=== PATIENT | male | born 1975 | race Caucasian/White ===

== ENCOUNTER → 2017-01-27 | Outpatient (CLI) | payer MEDICAID ==
[~2017-01-27] MED LIST: ALBUTEROL SULF 90 MCG INH; AMLO10TA4 PO; DOCU100C37 PO; GABA-488 PO; GABA300S2 PO; GABA600T2 PO; GEMF600T3 PO; HYDR-3816 PO; INSU100V16 SQ; INSU100V3 SC; INSU100V5 SQ; KENALOG 0.1% TOP; METF500T8 PO; OMEP20TA33 PO; ONDN4T PO; POLY17PO23 PO; POTA-51 PO; SERT20OR PO; SERT50TA9 PO; VALS1TAB5 PO
== END ==
LOC: WOUNDCARE 09:16
PROVIDERS: ATTEND Surgery
DX: E11.622 Type 2 diabetes mellitus with other skin ulcer (principal); L97.222 Non-pressure chronic ulcer of left calf with fat layer exposed; I87.332 Chronic venous hypertension (idiopathic) with ulcer and inflammation of left lower extremity; I70.242 Atherosclerosis of native arteries of left leg with ulceration of calf
CPT/HCPCS: 11042

== ENCOUNTER → 2017-01-29 | Outpatient (CLI) | payer MEDICAID ==
[2017-02-01 08:02] LABS: HOMOCYSTEINE 10.3 umol/L (<=10.3)
[2017-02-01 16:57] LABS: LUPUS ANTICOAGULANT PTT 27.5 Seconds (24.4-41.7)
[2017-02-02 07:13] LABS: INR REF RML 0.9 (0.7-1.3); PT REF RML 12.7 SEC (10.5-15.7); PTT LUPUS 26.8 SEC (20.6-39.2)
[2017-02-02 07:23] LABS: DIL RUSSELL VIPER VENOM SCREEN 0.94 ratio (0.00-1.20)
== END ==
LOC: LAB 08:56
PROVIDERS: ATTEND Surgery
DX: L97.222 Non-pressure chronic ulcer of left calf with fat layer exposed (principal); I87.332 Chronic venous hypertension (idiopathic) with ulcer and inflammation of left lower extremity; E11.622 Type 2 diabetes mellitus with other skin ulcer; I70.242 Atherosclerosis of native arteries of left leg with ulceration of calf
CPT/HCPCS: 36415; 81240; 83090; 85240; 85307; 85610; 85705; 85730; 86146; 86147

== ENCOUNTER → 2017-02-03 | Outpatient (CLI) | payer MEDICAID | LOC: WOUNDCARE 08:01 | PROVIDERS: ATTEND Surgery | DX: E11.622 Type 2 diabetes mellitus with other skin ulcer (principal); L97.222 Non-pressure chronic ulcer of left calf with fat layer exposed; I87.332 Chronic venous hypertension (idiopathic) with ulcer and inflammation of left lower extremity; I70.242 Atherosclerosis of native arteries of left leg with ulceration of calf | CPT/HCPCS: 11042 ==

== ENCOUNTER → 2017-02-03 | Outpatient (CLI) | payer MEDICAID ==
[2017-02-05 11:55] LABS: FACTOR 5 (LEIDEN) MUTATION Negative (Negative)
[2017-02-05 15:52] LABS: FACTOR 5 LEIDEN INTERP See Footnote
== END ==
LOC: LAB 09:14
PROVIDERS: ATTEND Surgery
DX: D68.59 Other primary thrombophilia (principal)
CPT/HCPCS: 36415; 81241

== ENCOUNTER → 2017-02-10 | Outpatient (CLI) | payer MEDICAID | LOC: WOUNDCARE 08:29 | PROVIDERS: ATTEND Surgery | DX: E11.622 Type 2 diabetes mellitus with other skin ulcer (principal); L97.222 Non-pressure chronic ulcer of left calf with fat layer exposed; I87.332 Chronic venous hypertension (idiopathic) with ulcer and inflammation of left lower extremity | CPT/HCPCS: 11042; 87070; 87075; 87077; 87186; 87205 ==

== ENCOUNTER → 2017-02-17 | Outpatient (CLI) | payer MEDICAID | LOC: WOUNDCARE 08:04 | PROVIDERS: ATTEND Surgery | DX: E11.622 Type 2 diabetes mellitus with other skin ulcer (principal); L97.222 Non-pressure chronic ulcer of left calf with fat layer exposed; I87.332 Chronic venous hypertension (idiopathic) with ulcer and inflammation of left lower extremity | CPT/HCPCS: 29581 ==

== ENCOUNTER → 2017-02-24 | Outpatient (CLI) | payer MEDICAID | LOC: WOUNDCARE 08:09 | PROVIDERS: ATTEND Surgery | DX: E11.622 Type 2 diabetes mellitus with other skin ulcer (principal); L97.222 Non-pressure chronic ulcer of left calf with fat layer exposed; I87.332 Chronic venous hypertension (idiopathic) with ulcer and inflammation of left lower extremity | CPT/HCPCS: 99212 ==

== ENCOUNTER → 2017-06-14 | Outpatient (CLI) | payer MEDICAID ==
[~2017-06-14] MED LIST changes: +HYDR-34 PO; -HYDR-3816 PO
[2017-06-14 11:01] LABS: BASOPHILS % (AUTO) 0 % (0-10); EOSINOPHILS # (AUTO) 0.2 10^3/uL (0.0-0.3); EOSINOPHILS % (AUTO) 2 % (0-10); HEMATOCRIT 46 % (40-54); HEMOGLOBIN 16.1 G/DL (13.3-17.7); LYMPHOCYTES # (AUTO) 2.2 X 10^3 (1.0-4.0); LYMPHOCYTES % (AUTO) 28 % (12-44); MEAN CORPUSCULAR HEMOGLOBIN 29 PG (25-34); MEAN CORPUSCULAR HGB CONC 35 G/DL (32-36); MEAN CORPUSCULAR VOLUME 82 FL (80-99); MEAN PLATELET VOLUME 11.2 FL (7.4-10.4); MONOCYTES # (AUTO) 0.7 X 10^3 (0.0-1.0); MONOCYTES % (AUTO) 9 % (0-12); NEUTROPHILS # (AUTO) 4.7 X 10^3 (1.8-7.8); NEUTROPHILS % (AUTO) 61 % (42-75); PLATELET COUNT 208 10^3/uL (130-400); RED BLOOD COUNT 5.55 10^6/uL (4.35-5.85); RED CELL DISTRIBUTION WIDTH 13.1 % (10.0-14.5); WHITE BLOOD COUNT 7.8 10^3/uL (4.3-11.0)
[2017-06-14 11:19] LABS: ALANINE AMINOTRANSFERASE 32 U/L (0-55); ALKALINE PHOSPHATASE 48 U/L (40-136); BILIRUBIN,TOTAL 0.5 MG/DL (0.1-1.0); BUN/CREATININE RATIO 16; CALCIUM 9.3 MG/DL (8.5-10.1); CARBON DIOXIDE 23 MMOL/L (21-32); CHLORIDE 108 MMOL/L (98-107); CREATININE SERUM 0.82 MG/DL (0.60-1.30); GFR ESTIMATED > 60; GLUCOSE 256 MG/DL (70-105); POTASSIUM 4.3 MMOL/L (3.6-5.0); SODIUM 136 MMOL/L (135-145)
== END ==
LOC: LAB 10:47
PROVIDERS: ATTEND Surgery
DX: E11.622 Type 2 diabetes mellitus with other skin ulcer (principal); L97.222 Non-pressure chronic ulcer of left calf with fat layer exposed
CPT/HCPCS: 36415; 80053; 85025

== ENCOUNTER → 2017-06-14 | Outpatient (CLI) | payer MEDICAID | LOC: WOUNDCARE 08:55 | PROVIDERS: ATTEND Surgery | DX: L97.222 Non-pressure chronic ulcer of left calf with fat layer exposed (principal); L97.221 Non-pressure chronic ulcer of left calf limited to breakdown of skin; I87.332 Chronic venous hypertension (idiopathic) with ulcer and inflammation of left lower extremity; E11.622 Type 2 diabetes mellitus with other skin ulcer; E11.65 Type 2 diabetes mellitus with hyperglycemia; Z89.511 Acquired absence of right leg below knee | CPT/HCPCS: 11042; 87070; 87075; 87077; 87186; 87205; 97597 ==

== ENCOUNTER → 2017-06-21 | Outpatient (CLI) | payer MEDICAID | LOC: WOUNDCARE 08:45 | PROVIDERS: ATTEND Surgery | DX: E11.622 Type 2 diabetes mellitus with other skin ulcer (principal); L97.222 Non-pressure chronic ulcer of left calf with fat layer exposed; L97.221 Non-pressure chronic ulcer of left calf limited to breakdown of skin; I87.332 Chronic venous hypertension (idiopathic) with ulcer and inflammation of left lower extremity; E11.65 Type 2 diabetes mellitus with hyperglycemia; Z89.511 Acquired absence of right leg below knee | CPT/HCPCS: 11042 ==

== ENCOUNTER → 2017-06-28 | Outpatient (CLI) | payer MEDICAID | LOC: WOUNDCARE 08:35 | PROVIDERS: ATTEND Surgery | DX: E11.622 Type 2 diabetes mellitus with other skin ulcer (principal); I87.332 Chronic venous hypertension (idiopathic) with ulcer and inflammation of left lower extremity; L97.221 Non-pressure chronic ulcer of left calf limited to breakdown of skin; E11.65 Type 2 diabetes mellitus with hyperglycemia; Z89.511 Acquired absence of right leg below knee | CPT/HCPCS: 97597 ==

== ENCOUNTER → 2017-07-12 | Outpatient (CLI) | payer MEDICAID | LOC: WOUNDCARE 08:45 | PROVIDERS: ATTEND Surgery | DX: E11.622 Type 2 diabetes mellitus with other skin ulcer (principal); L97.221 Non-pressure chronic ulcer of left calf limited to breakdown of skin; I87.332 Chronic venous hypertension (idiopathic) with ulcer and inflammation of left lower extremity; Z89.511 Acquired absence of right leg below knee | CPT/HCPCS: 99212 ==

== ENCOUNTER 2018-10-27 09:30 | Outpatient (CLI) | payer MEDICAID ==
[~2018-10-27] VITALS: Ht 182.9 cm; Wt 136.1 kg
[~2018-10-27 09:30] MED LIST changes: -GABA600T2 PO; +GBPN600T PO; -GEMF600T3 PO; +GEMF600T8 PO; -POLY17PO23 PO; +POLY17PO31 PO
[2018-10-27] MEDS ORDERED: INSU100V SQ (10:13)
[2018-10-27] MEDS ORDERED: RT-ALBUINH IH (10:13)
[2018-10-27] MEDS ORDERED: HYDR-3816 PO (10:13)
[2018-10-27] MEDS ORDERED: ATOR20TA66 PO (10:13)
[2018-10-27] MEDS ORDERED: IBUP-1780 PO (10:13)
[2018-10-27] MEDS ORDERED: AMLO5TAB9 PO (10:13)
[2018-10-27] MEDS ORDERED: INSU200I4 SQ (10:13)
[2018-10-27] MEDS ORDERED: OMEP40CA36 PO (10:13)
[2018-10-27] MEDS ORDERED: MONT10TA24 PO (10:13)
== END 2018-10-27 10:14 | disposition home or self-care (01) ==
LOC: PREOP 09:30
PROVIDERS: ATTEND Surgery
DX: Z01.818 Encounter for other preprocedural examination (principal)

== ENCOUNTER 2018-10-31 07:48 | Day surgery (SDC) | payer MEDICAID, MEDICARE ==
[~2018-10-31] VITALS: Ht 182.9 cm; Wt 136.1 kg
[~2018-10-31 07:48] MED LIST changes: +AMLO5TAB9 PO; +ATOR20TA66 PO; +HYDR-3816 PO; +IBUP-1780 PO; +INSU100V SQ; +INSU200I4 SQ; +LACTATED RINGERS 1,000 ML IV ONE; +MONT10TA24 PO; +OMEP40CA36 PO; +RT-ALBUINH IH
[2018-10-31] MEDS ORDERED: LACTATED RINGERS 1,000 ML IV STA (07:58)
[2018-10-31] MEDS ORDERED: proPOfol 200 MG/20 ML (DIPRIVAN) VIAL IV ONE (08:11)
[2018-10-31] MEDS ORDERED: fentaNYL INJECTION 100 MCG/2 ML AMP ONE (08:11)
[2018-10-31] MEDS ORDERED: LIDOCAINE PF 2% 5 ML (XYLOCAINE) VIAL ONE (08:12)
[2018-10-31] MEDS ORDERED: MIDAZOLAM 2 MG/2 ML (VERSED) VIAL ONE (08:12)
[2018-10-31 08:18] VITALS: BP 155/88
--- NOTE | 2018-10-31 08:28 | Progress Note-Pre Operative ---
Pre-Operative Progress Note H&P Reviewed The H&P was reviewed, patient examined and no changes noted. Time Seen by Provider: 08:17 Date H&P Reviewed: Oct 31, 2018 Time H&P Reviewed: 08:18 Pre-Operative Diagnosis: Dysphagia AVNI VILLANUEVA DO Oct 31, 2018 08:28
[2018-10-31] MEDS ORDERED: HURRICAINE EXT TUBE (BENZOCAINE) ONE (09:13)
[2018-10-31 09:40] VITALS: BP 130/67
--- NOTE | 2018-10-31 09:44 | Progress Note-Post Operative ---
Post-Operative Progess Note Surgeon (s)/Industrial Diamond Polisher (s) Surgeon AVNI VILLANUEVA DO Industrial Diamond Polisher: none Pre-Operative Diagnosis Dysphagia Post-Operative Diagnosis Gastritis Esophagitis Procedure & Operative Findings Date of Procedure 10/31/18 Procedure Performed/Findings EGD with bx Anesthesia Type IV sedation by FRYER OPERATOR Estimated Blood Loss Estimated blood loss (mL): scant Specimens/Packing Specimens Removed Antral bx Body of stomach bx GE jxn bx AVNI VILLANUEVA DO Oct 31, 2018 09:44
[2018-10-31 09:45] VITALS: BP 124/61
--- NOTE | 2018-10-31 09:46 | Endoscopy Discharge Instruct ---
Endo Procedure/Findings Findings 1.: Gastritis 2.: Other Findings (Esophagitis) Discharge Instructions - Activity: You might feel a little sleepy until tomorrow. This is due to the medicine you received to relax you. Until tomorrow, you should: NOT drive a car, operate machinery or power tools. NOT drink any alcoholic beverages. NOT make any important decisions or sign importortant papers. Do not return to work until tomorrow, unless otherwise instructed. Resume previous activities tomorrow. Diet: Start by taking liquids. If you tolerate liquids, advance to solid food. make an appointment for 2 weeks Instructions: 1.: EGD in 6-8 weeks Notify Physician - If you experience excessive bleeding, unusual abdominal pain, fever, or chest pain, contact your doctor immediately. Follow-Up: - I have received and understand the above instructions and will call my doctor if I have any further questions. Patient Signature Date Nurse Signature Other (Relationship) AVNI VILLANUEVA DO Oct 31, 2018 09:46
[2018-10-31 09:50] VITALS: BP 149/77
[2018-10-31 10:20] VITALS: BP 152/79
[2018-10-31 10:23] VITALS: BP 152/79
[2018-10-31] MEDS ORDERED: HURRICAINE EXT TUBE (BENZOCAINE) XX ONE (10:30)
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
--- OUTSIDE RECORDS SUMMARY | 2018-10-31 17:28 | XMS REPORT ---
Author Author Migration, Doctor Organization [facility] Address Unknown Phone Unavailable Care Team Providers Care Director [employer] Name Role Phone Migration, Doctor Unavailable Unavailable PROBLEMS Type Condition ICD9-CM Code PLW26-FQ Code Onset Dates Condition Status SNOMED Code Problem Diabetes type 2, uncontrolled E11.65 Active 348298703 Problem Acquired absence of right leg below knee Z89.511 Active 143295058 Problem DM 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 Active 76934992 Problem Skin ulcer of left lower leg, limited to breakdown of skin L97.921 Active 41306160 Problem Erectile dysfunction, unspecified erectile dysfunction type N52.9 Active 808788859 Problem Cellulitis of left lower extremity L03.116 Active 692668506 Problem Obstructive sleep apnea syndrome G47.33 Active 73394427 Problem Reflux esophagitis K21.0 Active 548876906 Problem Acute pain of left shoulder M25.512 Active 73409217 Problem Wheelchair bound Z99.3 Active 861319155 Problem Hammertoe of left foot M20.42 Active 605689086 Problem Venous insufficiency (chronic) (peripheral) I87.2 Active 56112737 Problem 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 Active 953991780 Problem 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 Active 445639107 Problem Varicose veins of left lower extremity with ulcer other part of lower leg I83.028 Active 38161051 Problem Other chronic pain G89.29 Active 80014151 Problem 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 Active 188094135 Problem Essential hypertension I10 Active 89292953 Problem Type 2 diabetes mellitus with diabetic polyneuropathy E11.42 Active 34112003 Problem Phantom pain R52 Active 480946445 Problem Mild intermittent asthma without complication J45.20 Active 369155911 Problem Anaphylactic reaction to bee sting, accidental or unintentional, initial encounter T63.441A Active 193589774 Problem Major depressive disorder in partial remission, unspecified whether recurrent F32.4 Active 70291079 Problem Body mass index (BMI) of 45.0-49.9 in adult Z68.42 Active 124469994 Problem Type 2 diabetes mellitus with other skin ulcer E11.622 Active 315907413 ALLERGIES Substance Reaction Event Type Date Status Victoza 3-jennifer 0.6 Mg/0.1 Ml (18 Mg/3 Ml) Pen Injec Unknown Non Drug Allergy Jul, Active ENCOUNTERS Encounter Location Date Diagnosis [facility] [id number] [place] [address] Oct, [facility] [id number] [place] [address] [id number] Oct, [facility] [address] [id number] Sep, Morbid obesity E66.01 ; Essential hypertension I10 and Other dysphagia R13.19 [facility] [address] [id number] Sep, [facility] [address] [id number] Sep, [facility] [id number] [place] [address] [id number] Sep, [facility] [address] [id number] Sep, [facility] [id number] [place] [address] [id number] Sep, Essential hypertension I10 [facility] [id number] [place] [address] [id number] Sep, [facility] [address] [id number] Sep, Morbid obesity E66.01 ; Diabetes type 2, uncontrolled E11.65 ; Pain in right shoulder M25.511 ; Other chronic pain G89.29 and Essential hypertension I10 [facility] [id number] [place] [address] [id number] Sep, Diabetes type 2, uncontrolled E11.65 ; Acquired absence of right leg below knee Z89.511 ; Skin ulcer of left lower leg, limited to breakdown of skin L97.921 ; Type 2 diabetes mellitus with diabetic polyneuropathy E11.42 ; 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 and Morbid obesity E66.01 [facility] [id number] [place] [address] [id number] August, Acquired absence of right leg below knee Z89.511 [facility] [id number] [place] [address] [id number] August, Morbid obesity E66.01 and Diabetes type 2, uncontrolled E11.65 [address] [place] [address] [id number] Jul, [id number] [place] [address] [id number] Jul, Acquired absence of right leg below knee Z89.[address] [place] [address] [id number] Jul, Encounter for Medicare annual wellness exam [...] in partial remission, unspecified whether recurrent F32.[address] [place] [address] [id number] Jul, [address] [place] [address] [id number] Jul, Type 2 diabetes mellitus with other skin ulcer E11.622 ; 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 ; Reflux esophagitis K21.0 ; Essential hypertension I10 ; Acute non-recurrent maxillary sinusitis J01.00 and Body mass index (BMI) of 45.0-49.9 in adult Z68.[address] [place] [address] [id number] Jun, DM 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 [facility] [id number] [place] [address] Jun, [id number] [place] [address] [id number] May, [address] [facility] [id number] [id number] May, DM 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 [id number] [place] [address] [id number] Apr, Finger laceration involving tendon, subsequent encounter S61.219D and BMI 40.0- 44.9, adult Z68.41 [id number] [place] [address] [id number] Apr, DM 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 [id number] [place] [address] [id number] Mar, [id number] [place] [address] [id number] Mar, DM 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 ; Essential hypertension I10 and Phantom pain R52 [id number] [place] [address] Feb, [id number] [place] [address] [id number] Feb, Diabetes type 2, uncontrolled E11.65 ; Skin ulcer of left lower leg, limited to breakdown of skin L97.921 and BMI 40.0-44.9, adult Z68.41 [facility] [address] [place] [address] Jan, [id number] [place] [address] [id number] Jan, Diabetes type 2, uncontrolled E11.65 and BMI 40.0-44.9, adult Z68.41 [facility] [id number] [place] [address] Dec, Onychomycosis B35.1 and DM 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 [address] [place] [address] [id number] Dec, [address] [id number] Dec, Diabetes type 2, uncontrolled E11.65 ; Essential hypertension I10 ; Reflux esophagitis K21.0 ; Major depressive disorder in partial remission, unspecified whether recurrent F32.4 ; Phantom pain R52 and BMI 40.0-44.9, adult Z68.41 [id number] [place] [address] [id number] Nov, Phantom pain R52 [id number] [place] [address] [id number] Nov, Diabetes type 2, uncontrolled E11.65 and BMI 40.0-44.9, adult Z68.41 [id number] [place] [address] [id number] Oct, Anaphylactic reaction to bee sting, accidental or unintentional, initial encounter T63.441A ; Pain in right shoulder M25.511 and Other chronic pain G89.29 [address] [place] [address] [id number] Oct, Diabetes type 2, uncontrolled E11.65 [id number] [place] [address] [id number] Oct, Diabetes type 2, uncontrolled E11.65 and Cellulitis of left lower extremity L03.116 [id number] [place] [address] [id number] Oct, Phantom pain R52 [facility] [address] [id number] [address] Sep, Onychomycosis B35.1 ; Impaired circulation of left leg I99.9 and DM 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 [address] [place] [address] [id number] Sep, BMI 40.0-44.9, adult Z68.41 ; Skin ulcer of left lower leg, limited to breakdown of skin L97.921 ; Acute pain of left shoulder M25.512 ; DM 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 ; Mild intermittent asthma without complication J45.20 and Phantom pain R52 [facility] [id number] [place] [address] [id number] Sep, Phantom pain R52 [facility] [id number] [place] [address] [id number] August, Phantom pain R52 [facility] [id number] [place] [address] [id number] August, Acquired absence of right leg below knee Z89.511 [facility] [id number] [place] [address] [id number] August, Acquired absence of right leg below knee Z89.511 [address] [id number] [place] [address] August, Diabetes type 2, uncontrolled E11.65 [place] [address] [address] August, [place] [address] [address] August, [address] [place] [address] [id number] August, BMI 40.0-44.9, adult Z68.41 ; 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 and Acquired absence of right leg below knee Z89.511 [facility] [address] [id number] [place] [address] August, [facility] [address] [facility] [id number] 919963495 Jul, Skin ulcer of left lower leg, limited to breakdown of skin L97.921 [facility] [address] [place] [address] [id number] Jul, [facility] [address] [id number] Jul, BMI 40.0-44.9, adult Z68.41 ; Skin ulcer of left lower leg, limited to breakdown of skin L97.921 and DM 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 [facility] [address] [address] Jul, [address] [place] [address] [id number] Jul, [address] [place] [address] [id number] Jul, [id number] [place] [address] [id number] Jun, Erectile dysfunction, unspecified erectile dysfunction type N52.9 [place] [id number] [place] [address] Jun, [id number] [place] [address] [id number] Jun, BMI 40.0-44.9, adult Z68.41 ; Diabetes type 2, uncontrolled E11.65 ; Phantom pain R52 ; Subluxation of right shoulder joint, sequela S43.001S and Erectile dysfunction, unspecified erectile dysfunction type N52.9 [facility] [address] [place] [address] Jun, DM 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 ; Onychomycosis B35.1 and Hammertoe of left foot M20.42 [place] [address] [place] [address] Jun, [address] [place] [address] [id number] Jun, DM 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 [id number] [id number] Jun, DM 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 [address] [place] [address] [id number] May, DM 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 ; Venous insufficiency (chronic) (peripheral) I87.2 ; 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 ; Essential hypertension I10 and Phantom pain R52 [facility] [id number][place] [id number] Apr, Diabetes type 2, uncontrolled E11.65 ; Acquired absence of right leg below knee Z89.511 ; Essential hypertension I10 ; Reflux esophagitis K21.0 and Phantom pain R52 [facility] [id number] [place] [address] [id number] Apr, BMI 40.0-44.9, adult Z68.41 and Wheelchair bound Z99.3 [facility] [id number] [place] [address] [id number] Mar, [facility] [id number] [place] [address] [id number] Mar, BMI 40.0-44.9, adult Z68.41 ; Diabetes type 2, uncontrolled E11.65 ; Mild intermittent asthma without complication J45.20 ; Phantom pain R52 ; Reflux esophagitis K21.0 and Essential hypertension I10 [facility] [id number] [place] [address] [id number] Feb, Phantom pain R52 [place] [id number] [place] [address] [id number] Feb, Phantom pain R52 and Acute pain of left shoulder M25.512 [address] [id number] [place] [address] [id number] Jan, Phantom pain R52 [address] [id number] [place] [address] [id number] Jan, DM 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 ; Cellulitis of left lower extremity L03.116 ; Obstructive sleep apnea syndrome G47.33 ; Thyroid disorder screen Z13.29 and Lipid screening Z13.220 [facility] [id number] [place] [address] [id number] Jan, [facility] [id number] [place] [address] [id number] Dec, DM 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 ; Phantom pain R52 and Mild intermittent asthma without complication J45.20 [facility] [id number] [place] [address] [id number] Dec, Wound of left lower extremity, subsequent encounter S81.802D [facility] [id number] [place] [address] [id number] Nov, [facility] [id number] [place] [address] Nov, [facility] [id number] [place] [address] [id number] Nov, DM 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 ; Mild intermittent asthma without complication J45.20 ; Essential hypertension I10 and Phantom pain R52 [facility] [id number] [place] [address] [id number] Oct, Phantom pain R52 [address] [id number] Sep, Phantom pain R52 ; DM 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 and Essential hypertension I10 [id number] [place] [address] [id number] August, DM 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 ; Phantom pain R52 and Essential hypertension I10 [facility] [id number] [place] [address] [id number] Jul, DM 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 and Phantom pain R52 [facility] [address] [place] [address] Jun, Onychomycosis B35.1 and DM 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 [address] [place] [address] [id number] Jun, DM 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 ; Phantom pain R52 ; Essential hypertension I10 and Diabetes with neurological manifestations, type II or unspecified type, not stated as uncontrolled 250.60 [facility] [address] [place] [address] [id number] Apr, DM 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 ; Phantom pain R52 ; Essential hypertension I10 and Mild intermittent asthma without complication J45.20 [facility] [id number] [place] [address] [id number] Apr, Need for follow up care after discharge from healthcare facility Z92.89 and Wound of right lower extremity, subsequent encounter S81.801D [facility] [id number], [place] [id number] Mar, Phantom pain R52 ; DM 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 and Essential hypertension I10 [facility] [id number] [place] [address] [id number] Feb, DM 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 ; Phantom pain R52 and Essential hypertension I10 [id number] [place] [address] [id number] Jan, Phantom pain R52 and DM 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 [id number] [place] [address] [id number] Dec, [address] [place] [address] [id number] Dec, DM 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 ; Phantom pain R52 ; Mild intermittent asthma without complication J45.20 and Essential hypertension I10 [facility] [id number] [address] Dec, Onychomycosis B35.1 ; Xerosis of skin L85.3 and DM 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 [id number] [place] [address] [id number] Nov, Acquired absence of right leg below knee Z89.511 [address] [place] [address] [id number] Nov, [id number] [place] [address] [id number] Nov, [facility] [address] [place] [address] [id number] Sep, [address] [place] [address] [id number] Sep, Diabetes type 2, uncontrolled E11.65 ; Leg wound, left, initial encounter S81.802A and Erectile disorder due to medical condition in male N52.[address] [place] [address] [id number] Sep, [id number] [place] [address] [id number] Jul, [facility] [id number], [place] [id number] Jul, [facility] [id number] [place] [address] [id number] Jul, [facility] [address] [place] [address] [id number] Jul, 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 ; Varicose vein of leg I83.93 ; Diabetes type 2, uncontrolled E11.65 and Chronic pain G89.29 [facility] [id number] [place] [address] [id number] Jul, [id number] [place] [address] [id number] Jul, Diabetes with neurological manifestations, type II or unspecified type, not stated as uncontrolled 250.60 [address] [place] [address] [id number] Jul, [place] [id number] [place] [address] [id number] Jul, [place] [id number] [place] [address] [id number] Jun, Diabetes type 2, uncontrolled E11.65 [place] [id number] [place] [address] [id number] Jun, Pain in right knee M25.561 ; Pain in left knee M25.562 ; Other chronic pain G89.29 and Primary osteoarthritis of both knees M17.[address] [place] [address] [id number] Apr, Diabetes type 2, uncontrolled E11.65 ; Puncture wound of foot, left, initial encounter S91.332A and Encounter for immunization Z23 [address] [id number] [place] [address] [id number] Apr, [facility] [address] [place] [address] [id number] Apr, [address] [place] [address] [id number] Feb, Acquired absence of right leg below knee Z89.511 [facility] [id number] [place] [address] [id number] Feb, Acquired absence of right leg below knee Z89.511 [facility] [id number] [place] [address] [id number] Feb, Diabetes type 2, uncontrolled E11.65 and Acquired absence of right leg below knee Z89.511 [facility] [id number] [place] [address] [id number] Jan, [facility] [address] [id number] Jan, [facility] [id number] [place] [address] Jan, [facility] [id number] [place] [address] [id number] Jan, [facility] [id number] [place] [address] [id number] Dec, [place] [id number] [place] [address] [id number] Dec, Diabetes with neurological manifestations, type II or unspecified type, not stated as uncontrolled 250.60 and Open wound of foot except toe(s) alone, without mention of complication 892.0 [facility] [id number] [place] [address] [id number] Dec, [id number] [place] [address] [id number] Nov, [place] [id number] [place] [address] [id number] Nov, Cellulitis of foot 682.7 [id number] [place] [address] [id number] Oct, [address] [id number] Oct, Corneal abrasion 918.1 [id number] [place] [address] [id number] Oct, [id number] [place] [address] [id number] Oct, [facility] [address] [facility] [id number], [place] [id number] August, [facility] [address] [facility] [id number][place] 7[address]7974 August, [facility] [address] [id number] [address]4938 August, [facility] [address] [id number][place] [id number] August, [facility] [id number], [place] 06891959[address] August, Diabetes mellitus without mention of complication, type II or unspecified type, not stated as uncontrolled 250.00 [facility] [id number] [place] [address] Jul, [facility] [id number] [place] [address] Jul, [facility] [id number] [place] [address] Apr, [facility] [address], [place] [address] Apr, [facility] [address], [place] [address] Mar, [facility] [address], [place] [address] Mar, [facility] [id number], [place] [address] Mar, [facility] [place] [facility] [address], [place] [address] Mar, [facility] [place] [facility] [address], [place] [address] Mar, [facility] [place] [facility] [address], [place] [address] Mar, [facility] [address] [id number], [place] [id number] Mar, [facility] [place] [facility] [address] [id number] [place] [address] Mar, [facility] [place] [facility] [address] [facility] [id number], [place] [address] Mar, [facility] [place] [facility] [address] [facility] [id number] [place] [address] Mar, [facility] [place] [facility] [address] [facility] [id number], [place] [address] Mar, [facility] [place] [facility] [address] [facility] [id number] [place] [address] Mar, [facility] [place] [facility] [address] [facility] [id number], [place] [address] Mar, [facility] [address] [facility] [id number][place] [id number] Mar, [facility] [place] [facility] [address] [facility] [id number], [place] [address] Jan, [facility] [address] [facility] [id number], [place] [id number] Jan, [facility] [place] [facility] [address] [facility] [id number], [place] [address] Jan, [facility] [place] [facility] [address] [facility] [id number], [place] [address] Jan, [facility] [place] [facility] [address] [facility] [id number], [place] [address] Jan, [facility] [address] [facility] [id number], [place] [id number] Jan, [facility] [place] [facility] [address] [facility] [id number], [place] [address] Dec, [facility] [address] [facility] [id number], [place] [id number] Nov, [facility] [place] [facility] [address] [facility] [id number], [place] [address] Nov, [facility] [address] [id number] [place] [id number] Oct, [facility] [place] [facility] [address] [id number] [place] [address] Oct, [facility] [address] [id number] [place] [id number] Oct, [facility] [place] [facility] [address] [id number] [place] [address] Oct, [facility] [place] [facility] [address] [id number] [place] [address] August, [facility] [place] [facility] [address] [id number] [place] [address] August, [facility] [place] [facility] [address] [facility] [id number] [place] [address] August, [facility] [place] [facility] [address] [facility] [id number] [place] [address] August, [facility] [address] [id number] [place], [place] [id number] Jul, [facility] [place] [facility] [address] [facility] [id number] [place] [address] Jul, [facility] [address] [facility] [id number] [id number] Jun, [facility] [place] [facility] [address] [id number] [place] [address] Jun, [facility] [address] [id number] [place] [id number] Jun, [facility] [place] [facility] [address] [id number] [place] [address] Jun, [facility] [address] [id number] [place] [id number] Jun, [facility] [place] [facility] [address] [id number] [place] [address] Jun, [facility] [address] [id number][place] [id number] Jun, [facility] [place] [facility] [address] [facility] [id number] [place] [address] Jun, [facility] [address] [facility] [id number] [place] [id number] May, [facility] [place] [facility] [address] [facility] [id number], [place] [address] May, [facility] [address] [facility] [id number][place] [id number] May, [facility] [place] [facility] [address] [facility] [id number] [place] [address] May, [facility] [place] [facility] [address] [facility] [id number] [place] [address] May, [facility] [place] [facility] [address] [id number] [address] May, [facility] [address] [id number] [id number] May, [facility] [place] [facility] [address] [id number], [place] [address] May, [facility] [address] [facility] [id number][place] [id number] May, [facility] [place] [facility] [id number], [place] [address] May, [facility] [place] [facility] [address] [facility] [id number], [place] [address] Apr, [facility] [place] [facility] [address] [facility] [id number], [place] [address] Apr, [facility] [address] [facility] [id number][place] [id number] Apr, [facility] [place] [facility] [address] [facility] [id number], [place] [address] Apr, [facility] [address] [id number][place] [id number] Sep, [facility] [address] [id number], [place] [address] Sep, [facility] [address] [id number] [place] [id number] Sep, [facility] [address] [id number] [place] [id number] Sep, [facility] [address] [facility] [id number], [place] [address] Jun, [facility] [address] [id number] [place] [id number] Nov, [facility] [address] [id number] [place] [id number] Nov, [facility] [address] [id number] [place] [id number] Nov, [facility] [address] [id number] [place] [id number] Nov, [facility] [address] [id number] [place] [id number] Nov, [facility] [address] [id number] [place] [id number] Nov, [facility] [address] [id number] [place] [id number] Nov, [facility] [address] [id number] [place] [id number] Nov, [facility] [address] [id number] [place] [id number] Nov, [facility] [address] [id number] [place] [id number] Sep, [facility] [address] [id number] [place] [id number] Sep, [facility] [address] [id number] [place] [id number] Sep, [facility] [address] [id number] [place] [id number] Sep, [facility] [address] [id number] [place] [id number] August, [facility] [address] [facility] [id number] [place] [id number] August, [facility] [address] [facility] [id number] [place] [id number] August, [facility] [address] [facility] [id number] [place] [id number] August, [facility] [address] [facility] [id number] [place] [address] Sep, IMMUNIZATIONS No Known Immunizations SOCIAL HISTORY Never Assessed REASON FOR VISIT EMR-[facility] PLAN OF CARE VITAL SIGNS MEDICATIONS Medication Instructions Dosage Frequency Start Date End Date Duration Status Diovan HCT 160-12.5 mg take 1 tablet by Oral route 1 time per day Jan, Active Aciphex 20 mg 1 tablet by Oral route 1 time per day Jan, Active NovoLog 100 unit/mL inject 10 Units by Subcutaneous route 3 times per day before meals & ss Nov, Active Zoloft 50 mg 1 tablet by Oral route 1 time per day 1/2 tab x 1 week then increase to 1 full tab daily. Jan, Active amitriptyline 50 mg 2 tablet by Oral route 1 time per day 1 tab at hs x 7 days then increase to 2 tabs nightly. Mar, Active NovoLog Flexpen 100 unit/mL inject 10 Units by Subcutaneous route as per insulin sliding scale protocol 3 times per day 10 units with each meal + ss Oct, Active Neurontin 300 mg 1 capsule by Oral route 3 times per day PRN for pain Jan, Active Glycopyrrolate by oral route Take a 1mg tablet BID May, Active Ciprofloxacin 750 mg take 1 tablet (750 mg) by oral route every 12 hours for 10 days May, Active Levemir 100 unit/mL inject 100 Units by Subcutaneous route 2 times per day 55 u in AM, 100 in PM Nov, Active Clindamycin HCl 300 mg 1 capsule by Oral route every 12 hours for 10 day(s) Sep, Active Bactrim DS 800-160 mg 1 tablet by Oral route 2 times per day for 10 day(s) Nov, Active Gemfibrozil 600 mg take 1 tablet (600 mg) by oral route 2 times per day 30 minutes before morning and evening meal Jan, Active RESULTS No Results PROCEDURES No Known procedures [...] 11/2014 Surgical History amputation right mid-calf/foot at [facility] 01/2015 Surgical History amputation of index finger right hand 06/2018 Hospitalization History [facility] post op infection to right foot, amputations to mid-calf 01/2015 Hospitalization History [facility] In post-op 7 days, discharges with home health -02/2015 Hospitalization History [facility] ER visit for sore on right stump 04/2016 Hospitalization History [facility] wound on left lower leg, culture +for Strep G 12/2016
--- OUTSIDE RECORDS SUMMARY | 2018-10-31 17:29 | XMS REPORT ---
Author Author Migration, Doctor Organization [facility] Address Unknown Phone Unavailable Care Team Providers Care Label Rewinder Name Role Phone Migration, Doctor Unavailable Unavailable PROBLEMS Type Condition ICD9-CM Code [id number] Code Onset Dates Condition Status SNOMED Code Problem Phantom pain R52 Active 367862590 Problem Acquired absence of right leg below knee Z89.511 Active 954199355 Problem Mild intermittent asthma without complication J45.20 Active 513578463 Problem Essential hypertension I10 Active 18943684 Problem Cellulitis of left lower extremity L03.116 Active 380546024 Problem Obstructive sleep apnea syndrome G47.33 Active 35831219 Problem Reflux esophagitis K21.0 Active 040181371 Problem Acute pain of left shoulder M25.512 Active 28000637 Problem 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 Active 477780419 Problem Venous insufficiency (chronic) (peripheral) I87.2 Active 62463444 Problem Erectile dysfunction, unspecified erectile dysfunction type N52.9 Active 009755341 Problem Anaphylactic reaction to bee sting, accidental or unintentional, initial encounter T63.441A Active 391281210 Problem Wheelchair bound Z99.3 Active 026353594 Problem Diabetes type 2, uncontrolled E11.65 Active 893171176 Problem Major depressive disorder in partial remission, unspecified whether recurrent F32.4 Active 42446811 Problem Hammertoe of left foot M20.42 Active 279915432 Problem DM 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 Active 69086916 Problem Skin ulcer of left lower leg, limited to breakdown of skin L97.921 Active 38506649 Problem 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 Active 655683033 Problem Varicose veins of left lower extremity with ulcer other part of lower leg I83.028 Active 30451510 Problem Other chronic pain G89.29 Active 60738895 ALLERGIES No Information ENCOUNTERS Encounter Location Date Diagnosis [facility] [address] [id number] [id number] Jul, [facility] [id number] [place] [address] [id number] Jun, DM 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 [facility] [id number] [place] [address] Jun, [facility] [id number] [place] [address] [id number] May, [address] [id number] [id number] May, DM 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 [address] [id number] [place] [address] [id number] Apr, Finger laceration involving tendon, subsequent encounter S61.219D and BMI 40.0- 44.9, adult Z68.41 [address] [id number] [place] [address] [id number] Apr, DM 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 [facility] [id number] [place] [address] [id number] Mar, [address] [id number] [place] [address] [id number] Mar, DM 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 ; Essential hypertension I10 and Phantom pain R52 [id number] [place] [address] Feb, [address] [place] [address] [id number] Feb, Diabetes type 2, uncontrolled E11.65 ; Skin ulcer of left lower leg, limited to breakdown of skin L97.921 and BMI 40.0-44.9, adult Z68.41 [place] [id number] [place] [address] Jan, [address] [id number] [place] [address] [id number] Jan, Diabetes type 2, uncontrolled E11.65 and BMI 40.0-44.9, adult Z68.41 [place] [address] [place] [address] Dec, Onychomycosis B35.1 and DM 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 [address] [id number] [place] [address] [id number] Dec, [address] [address] [address] [place] [address] [id number] Dec, Diabetes type 2, uncontrolled E11.65 ; Essential hypertension I10 ; Reflux esophagitis K21.0 ; Major depressive disorder in partial remission, unspecified whether recurrent F32.4 ; Phantom pain R52 and BMI 40.0-44.9, adult Z68.[address] [id number] Nov, Phantom pain R52 [address] [id number] Nov, Diabetes type 2, uncontrolled E11.65 and BMI 40.0-44.9, adult Z68.41 [address] [address] [place] [address] [id number] Oct, Anaphylactic reaction to bee sting, accidental or unintentional, initial encounter T63.441A ; Pain in right shoulder M25.511 and Other chronic pain G89.29 [address] [address] [place] [address] [id number] Oct, Diabetes type 2, uncontrolled E11.65 [place] [address] [place] [address] [id number] Oct, Diabetes type 2, uncontrolled E11.65 and Cellulitis of left lower extremity L03.116 [address] [address] [place] [address] [id number] Oct, Phantom pain R52 [facility] [id number] [place] [address] 15 Sep, 2017 Onychomycosis B35.1 ; Impaired circulation of left leg I99.9 and DM 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 [address] [address] [place] [address] [id number] Sep, BMI 40.0-44.9, adult Z68.41 ; Skin ulcer of left lower leg, limited to breakdown of skin L97.921 ; Acute pain of left shoulder M25.512 ; DM 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 ; Mild intermittent asthma without complication J45.20 and Phantom pain R52 [facility] [id number] [place] [address] [id number] Sep, Phantom pain R52 [facility] [id number] [place] [address] [phone] August, Phantom pain R52 [facility] [id number] [place] [address] [id number] August, Acquired absence of right leg below knee Z89.511 [facility] [address] [id number] August, Acquired absence of right leg below knee Z89.511 [place] [id number] [place] [address] August, Diabetes type 2, uncontrolled E11.65 [place] [id number] [place] [address] August, [place] [address] [address] August, [address] [place] [address] [id number] August, BMI 40.0-44.9, adult Z68.41 ; 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 and Acquired absence of right leg below knee Z89.511 [facility] [address] [id number] [place] [address] August, [facility] [address] [place] [address] [id number] Jul, Skin ulcer of left lower leg, limited to breakdown of skin L97.921 [facility] 120 [facility] [id number] [id number] Jul, [address] [place] [address] [id number] Jul, BMI 40.0-44.9, adult Z68.41 ; Skin ulcer of left lower leg, limited to breakdown of skin L97.921 and DM 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 [place] [address]005[address] [address] Jul, [facility] [id number] [place] [address] [id number] Jul, [facility] [id number] [place] [address] [id number] Jul, [facility] [id number] [place] [address] [id number] Jun, Erectile dysfunction, unspecified erectile dysfunction type N52.9 [place] [id number] [place] [address] Jun, [address] [place] [address] [id number] Jun, BMI 40.0-44.9, adult Z68.41 ; Diabetes type 2, uncontrolled E11.65 ; Phantom pain R52 ; Subluxation of right shoulder joint, sequela S43.001S and Erectile dysfunction, unspecified erectile dysfunction type N52.9 [place] [id number] [place] [address] Jun, DM 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 ; Onychomycosis B35.1 and Hammertoe of left foot M20.42 [place] [address] [place] [address] Jun, [address] [id number] [phone] Jun, DM 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 [address] [id number] Jun, DM 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 [facility] [address] [phone] May, DM 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 ; Venous insufficiency (chronic) (peripheral) I87.2 ; 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 ; Essential hypertension I10 and Phantom pain R52 [facility] [id number] [place] [address] [id number] Apr, Diabetes type 2, uncontrolled E11.65 ; Acquired absence of right leg below knee Z89.511 ; Essential hypertension I10 ; Reflux esophagitis K21.0 and Phantom pain R52 [place] [address] [id number] Apr, BMI 40.0-44.9, adult Z68.41 and Wheelchair bound Z99.[address] [id number] Mar, [address] [id number] Mar, BMI 40.0-44.9, adult Z68.41 ; Diabetes type 2, uncontrolled E11.65 ; Mild intermittent asthma without complication J45.20 ; Phantom pain R52 ; Reflux esophagitis K21.0 and Essential hypertension I10 [facility] [id number] [place] [address] [id number] Feb, Phantom pain R52 [place] [address] [place] [address] [id number] Feb, Phantom pain R52 and Acute pain of left shoulder M25.512 [place] [address] [place] [address] [id number] Jan, Phantom pain R52 [place] [address] [place] [address] [id number] Jan, DM 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 ; Cellulitis of left lower extremity L03.116 ; Obstructive sleep apnea syndrome G47.33 ; Thyroid disorder screen Z13.29 and Lipid screening Z13.220 [facility] [id number] [place] [address] [id number] Jan, [facility] [id number] [place] [address] [id number] Dec, DM 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 ; Phantom pain R52 and Mild intermittent asthma without complication J45.20 [facility] [id number] [place] [address] [id number] Dec, Wound of left lower extremity, subsequent encounter S81.802D [facility] [id number] [place] [address] [id number] Nov, [facility] [address] [address] Nov, [facility] [address] [id number] Nov, DM 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 ; Mild intermittent asthma without complication J45.20 ; Essential hypertension I10 and Phantom pain R52 [facility] [address] [id number] Oct, Phantom pain R52 [facility] [id number] [place] [address] [id number] Sep, Phantom pain R52 ; DM 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 and Essential hypertension I10 [facility] [id number] [place] [address] [id number] August, DM 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 ; Phantom pain R52 and Essential hypertension I10 [facility] [address] [id number] Jul, DM 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 and Phantom pain R52 [facility] [address] [place] [address] Jun, Onychomycosis B35.1 and DM 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 [facility] [id number] [place] [address] [id number] Jun, DM 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 ; Phantom pain R52 ; Essential hypertension I10 and Diabetes with neurological manifestations, type II or unspecified type, not stated as uncontrolled 250.60 [facility] [id number] [place] [address] [id number] Apr, DM 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 ; Phantom pain R52 ; Essential hypertension I10 and Mild intermittent asthma without complication J45.20 [facility] [address] [id number] [id number] Apr, Need for follow up care after discharge from healthcare facility Z92.89 and Wound of right lower extremity, subsequent encounter S81.801D [address]005[address] [id number] Mar, Phantom pain R52 ; DM 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 and Essential hypertension I10 [place] [address] [place] [address] [id number] Feb, DM 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 ; Phantom pain R52 and Essential hypertension I10 [place] [address] [place] [address] [id number] Jan, Phantom pain R52 and DM 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 [place] [address] [place] [address] [id number] Dec, [place] [address] [place] [address] [id number] Dec, DM 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 ; Phantom pain R52 ; Mild intermittent asthma without complication J45.20 and Essential hypertension I10 [facility] [address] [id number] [address] Dec, Onychomycosis B35.1 ; Xerosis of skin L85.3 and DM 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 [place] [id number] [id number] Nov, Acquired absence of right leg below knee Z89.511 [address]005[address]100[place] [id number] Nov, [address] [place] [address] [id number] Nov, [address] [place] [address] [id number] Sep, [place] [address] [place] [address] [id number] Sep, Diabetes type 2, uncontrolled E11.65 ; Leg wound, left, initial encounter S81.802A and Erectile disorder due to medical condition in male N52.1 [address]005[address] [id number] Sep, [facility] [id number] [place] [address] [id number] Jul, [facility] [id number] [place] [address] [id number] Jul, [facility] [id number] [place] [address] [id number] Jul, [facility] [id number] [place] [address], [place] [id number] Jul, 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 ; Varicose vein of leg I83.93 ; Diabetes type 2, uncontrolled E11.65 and Chronic pain G89.29 [facility] [id number] [place] [address] [id number] Jul, [facility] [id number] [place] [address] [id number] Jul, Diabetes with neurological manifestations, type II or unspecified type, not stated as uncontrolled 250.60 [facility] [id number] [place] [address] [id number] Jul, [facility] [id number] [place] [address] [id number] Jul, [facility] [id number] [place] [address] [id number] Jun, Diabetes type 2, uncontrolled E11.65 [facility] [id number] [place] [address] [id number] Jun, Pain in right knee M25.561 ; Pain in left knee M25.562 ; Other chronic pain G89.29 and Primary osteoarthritis of both knees M17.0 [facility] [id number] [place] [address] [id number] Apr, Diabetes type 2, uncontrolled E11.65 ; Puncture wound of foot, left, initial encounter S91.332A and Encounter for immunization Z23 [facility] [id number] [id number] Apr, [facility] [id number] [place] [address] [id number] Apr, [facility] [id number], [place] [id number] Feb, Acquired absence of right leg below knee Z89.511 [facility] [id number] [place] [address] [id number] Feb, Acquired absence of right leg below knee Z89.511 [facility] [id number] [place] [address] [id number] Feb, Diabetes type 2, uncontrolled E11.65 and Acquired absence of right leg below knee Z89.511 [facility] [id number] [place] [address] [id number] Jan, [place] [id number] [place] [address] [id number] Jan, [facility] [address] [id number], [place] [address] Jan, [address] [place] [address] [id number] Jan, [facility] [id number] [place] [address] [id number] Dec, [place] [address] [place] [address] [id number] Dec, Diabetes with neurological manifestations, type II or unspecified type, not stated as uncontrolled 250.60 and Open wound of foot except toe(s) alone, without mention of complication 892.0 [place] [id number] [place] [address] [id number] Dec, [place] [id number] [place] [address] [id number] Nov, [place] [id number] [place] [address] [id number] Nov, Cellulitis of foot 682.7 [place] [id number] [place] [address] [id number] Oct, [place] [id number] [place] [address] [id number] Oct, Corneal abrasion 918.1 [place] [address] [id number] [id number] Oct, [facility] [address] [id number] [place] [id number] Oct, [facility] [address] [id number] [place] [id number] August, [facility] [address] [id number] [place] [id number] August, [facility] [address] [id number] [id number] August, [facility] [address] [id number] [place] [phone] August, [facility] [address] [id number] [id number] August, Diabetes mellitus without mention of complication, type II or unspecified type, not stated as uncontrolled 250.00 [facility] [address]100[place], [place] [address] Jul, [facility] [id number] [place] [address] Jul, [facility] [id number] [place] [address] Apr, [facility] [id number] [place] [address] Apr, [facility] [address]005[address]100[place], [place] [address] Mar, [facility] [place] [facility] [address], [place] [address] Mar, [facility] [place] [facility] [address] [id number], [place] [address] Mar, [facility] [place] [facility] [id number] [place] [address] Mar, [facility] [place] [facility] [address]100[place], [place] [address] Mar, [facility] [place] [facility] [address] [id number], [place] [address] Mar, [facility] [address] [facility] [place] [facility] [id number][place] [id number] Mar, [facility] [place] [facility] [address] [facility] [id number], [place] [address] Mar, [facility] [place] [facility] [address] [facility] [id number], [place] [address] Mar, [facility] [place] [facility] [address] [facility] [id number], [place] [address] Mar, [facility] [place] [facility] [address] [facility] [id number] [place] [address] Mar, [facility] [place] [facility] [address] [facility] [id number], [place] [address] Mar, [facility] [place] [facility] [address], [place] [address] Mar, [facility] [id number], [place] [id number] Mar, [facility] [place] [facility] [id number], [place] [address] Jan, [facility] [address] [facility] [id number], [place] [id number] Jan, [facility] [place] [facility] [address] [facility] [id number], [place] [address] Jan, [facility] [place] [facility] [address] [facility] [id number], [place] [address] Jan, [facility] [place] [facility] [address] [facility] [id number], [place] [address] Jan, [facility] [address] [facility] [id number], [place] [id number] Jan, [facility] [place] [facility] [address] [facility] [id number][place] [address] Dec, [facility] [address] [facility] [id number][place] [id number] Nov, [facility] [place] [facility] [address] [id number] [place] [address] Nov, [facility] [address] [id number] [place] [id number] Oct, [facility] [place] [facility] [address] [id number] [place] [address] Oct, [facility] [address] [id number] [place] [id number] Oct, [facility] [place] [facility] [address] [id number] [place] [address] Oct, [facility] [place] [facility] [address] [id number] [place] [address] August, [facility] [place] [facility] [address] [facility] [id number] [place] [address] August, [facility] [place] [facility] [address] [facility] [id number] [place] [address] August, [facility] [place] [facility] [address] [facility] [id number] [place] [address] August, [facility] [address] [facility] [id number] [place] [id number] Jul, [facility] [place] [facility] [address] [facility] [id number] [place] [address] Jul, [facility] [address] [facility] [id number] [place] [id number] Jun, [facility] [place] [facility] [address] [id number] [place] [address] Jun, [facility] [address] [facility] [id number] [place] [id number] Jun, [facility] [place] [facility] [address] [id number] [place] [address] Jun, [facility] [address] [id number] [place] [id number] Jun, [facility] [place] [facility] [address] [facility] [id number] [address] Jun, [facility] [address] [facility] [id number] [place] [id number] Jun, [facility] [place] [facility] [address] [facility] [id number], [place] [address] Jun, [facility] [address] [facility] [id number] [place] [id number] May, [facility] [place] [facility] [address] [facility] [id number], [place] [address] May, [facility] [address] [facility] [id number] [place] [id number] May, [facility] [place] [facility] [address] [facility] [id number], [place] [address] May, [facility] [place] [facility] [id number] [address] May, [facility] [place] [facility] [address] [id number] [address] May, [facility] [address] [id number] [id number] May, [facility] [place] [facility] [address] [id number], [place] [address] May, [facility] [address] [id number] [id number] May, [facility] [place] [facility] [address] [facility] [id number], [place] [address] May, [facility] [place] [facility] [address] [facility] [id number], [place] [address] Apr, [facility] [place] [facility] [address] [facility] [id number], [place] [address] Apr, [facility] [address] [facility] [id number][place] [id number] Apr, [facility] [place] [facility] [id number] [place] [place] [id number] Apr, [facility] [address] [id number] [place] [id number] Sep, [facility] [address] [facility] [id number] [place] [address] Sep, [facility] [address] [id number] [place] [id number] Sep, [facility] [address] [id number] [place] [id number] Sep, [facility] [address] [facility] [id number] [place] [address] Jun, [facility] [address] [id number] [place] [id number] Nov, [facility] [address] [id number] [place] [id number] Nov, [facility] [address] [id number] [place] [id number] Nov, [facility] [address] [id number] [place] [id number] Nov, [facility] [address] [id number] [place] [id number] Nov, [facility] [address] [id number] [place] [id number] Nov, [facility] [address] [id number] [place] [id number] Nov, [facility] [address] [id number] [place] [id number] Nov, [facility] [address] [id number] [place] [id number] Nov, [facility] [address] [id number] [place] [id number] Sep, [facility] [address] [id number] [place] [id number] Sep, [facility] [address] [id number] [place] [id number] Sep, [facility] [address] [id number] [place] [id number] Sep, [facility] [address] [facility] [id number] [place] [id number] August, [facility] [address] [facility] [id number] [place] [id number] August, [facility] [address] [facility] [id number] [place] [id number] August, [facility] [address] [facility] [id number] [place] [id number] August, [facility] [address] [facility] [id number] [place] [address] Sep, IMMUNIZATIONS No Known Immunizations SOCIAL HISTORY Never Assessed REASON FOR VISIT EMR-[facility] PLAN OF CARE VITAL SIGNS MEDICATIONS Unknown [...] 11/2014 Surgical History amputation right mid-calf/foot at [facility] 01/2015 Hospitalization History [facility] Cedeno post op infection to right foot, amputations to mid-calf 01/2015 Hospitalization History [facility] post-op 7 days, discharges with home health -02/2015 Hospitalization History [facility] ER visit for sore on right stump 04/2016 Hospitalization History [facility] ER wound on left lower leg, culture +for Strep G 12/2016
--- OUTSIDE RECORDS SUMMARY | 2018-10-31 17:29 | XMS REPORT ---
Author Author Migration, Doctor Organization [facility] Address Unknown Phone Unavailable Care Team Providers Care Teacher Physically Impaired Name Role Phone Migration, Doctor Unavailable Unavailable PROBLEMS Type Condition ICD9-CM Code UEO31-ES Code Onset Dates Condition Status SNOMED Code Problem Mild intermittent asthma without complication J45.20 Active 726698923 Problem Phantom pain R52 Active 242349584 Problem Cellulitis of left lower extremity L03.116 Active 856703657 Problem Obstructive sleep apnea syndrome G47.33 Active 02988687 Problem Reflux esophagitis K21.0 Active 902742961 Problem Acute pain of left shoulder M25.512 Active 80243733 Problem Wheelchair bound Z99.3 Active 341337575 Problem Diabetes type 2, uncontrolled E11.65 Active 676312755 Problem Hammertoe of left foot M20.42 Active 470046126 Problem Erectile dysfunction, unspecified erectile dysfunction type N52.9 Active 521516912 Problem Skin ulcer of left lower leg, limited to breakdown of skin L97.921 Active 78791653 Problem 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 Active 914652360 Problem Body mass index (BMI) of 45.0-49.9 in adult Z68.42 Active 267938693 Problem Venous insufficiency (chronic) (peripheral) I87.2 Active 18150821 Problem Acquired absence of right leg below knee Z89.511 Active 792457308 Problem Type 2 diabetes mellitus with other skin ulcer E11.622 Active 505733322 Problem 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 Active 747120103 Problem DM 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 Active 77144153 Problem Essential hypertension I10 Active 95031513 Problem Varicose veins of left lower extremity with ulcer other part of lower leg I83.028 Active 14596907 Problem Other chronic pain G89.29 Active 37203252 Problem Anaphylactic reaction to bee sting, accidental or unintentional, initial encounter T63.441A Active 707420900 Problem Major depressive disorder in partial remission, unspecified whether recurrent F32.4 Active 09233821 ALLERGIES No Information ENCOUNTERS Encounter Location Date Diagnosis [id number] [place] [address] [id number] August, [place] [id number] [place] [address] [id number] Jul, Encounter for Medicare annual wellness exam Z00.00 [place] [id number] [place] [address] [id number] Jul, [address] [id number] Jul, Type 2 diabetes mellitus with other skin ulcer E11.622 ; 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 ; Reflux esophagitis K21.0 ; Essential hypertension I10 ; Acute non-recurrent maxillary sinusitis J01.00 and Body mass index (BMI) of 45.0-49.9 in adult Z68.42 [place] [id number] [place] [address] [id number] Jun, DM 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 [facility] [address] [facility] [id number], [place] [address] Jun, [address] [place] [address] [id number] May, [address] [id number] [id number] May, DM 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 [address] [place] [address] [id number] Apr, Finger laceration involving tendon, subsequent encounter S61.219D and BMI 40.0- 44.9, adult Z68.41 [place] [id number] [place] [address] [id number] Apr, DM 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 [address] [place] [address] [id number] Mar, [place] [address] [place] [address] [id number] Mar, DM 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 ; Essential hypertension I10 and Phantom pain R52 [place] [address] [place] [id number] [place] [address] Feb, [place] [address] [place] [address] [id number] Feb, Diabetes type 2, uncontrolled E11.65 ; Skin ulcer of left lower leg, limited to breakdown of skin L97.921 and BMI 40.0-44.9, adult Z68.41 [place] [address] [place] [address] [id number] [place] [address] Jan, [address] [id number] Jan, Diabetes type 2, uncontrolled E11.65 and BMI 40.0-44.9, adult Z68.41 [place] [address] [address] Dec, Onychomycosis B35.1 and DM 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 [place] [id number] [place] [address] [id number] Dec, [address] [id number] Dec, Diabetes type 2, uncontrolled E11.65 ; Essential hypertension I10 ; Reflux esophagitis K21.0 ; Major depressive disorder in partial remission, unspecified whether recurrent F32.4 ; Phantom pain R52 and BMI 40.0-44.9, adult Z68.41 [place] [id number] [place] [address] [id number] Nov, Phantom pain R52 [place] [id number] [place] [address] [id number] Nov, Diabetes type 2, uncontrolled E11.65 and BMI 40.0-44.9, adult Z68.41 [place] [address] [place] [address] [id number] Oct, Anaphylactic reaction to bee sting, accidental or unintentional, initial encounter T63.441A ; Pain in right shoulder M25.511 and Other chronic pain G89.29 [facility] [id number] [place] [address] [id number] Oct, Diabetes type 2, uncontrolled E11.65 [facility] [address] [id number] Oct, Diabetes type 2, uncontrolled E11.65 and Cellulitis of left lower extremity L03.116 [facility] [address] [id number] Oct, Phantom pain R52 [facility] [address] [address] Sep, Onychomycosis B35.1 ; Impaired circulation of left leg I99.9 and DM 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 [facility] [address] [id number] Sep, BMI 40.0-44.9, adult Z68.41 ; Skin ulcer of left lower leg, limited to breakdown of skin L97.921 ; Acute pain of left shoulder M25.512 ; DM 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 ; Mild intermittent asthma without complication J45.20 and Phantom pain R52 [place] [address] [place] [id number] [place] [address] [id number] Sep, Phantom pain R52 [facility] [address] [place] [address] [id number] [place] [address] [id number] August, Phantom pain R52 [place] [address] [place] [address] [id number] August, Acquired absence of right leg below knee Z89.511 [facility] [address] [place] [id number] [place] [address] [id number] August, Acquired absence of right leg below knee Z89.511 [facility] [address] [address] August, Diabetes type 2, uncontrolled E11.65 [facility] [address] [address] August, [facility] [address] [address] August, [facility] [address] [id number] August, BMI 40.0-44.9, adult Z68.41 ; 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 and Acquired absence of right leg below knee Z89.[address] [id number] [place] [address] August, [address] [place] [address] [id number] Jul, Skin ulcer of left lower leg, limited to breakdown of skin L97.921 [place] [address] [place] [address] [id number] Jul, [place] [address] [place] [address] [id number] Jul, BMI 40.0-44.9, adult Z68.41 ; Skin ulcer of left lower leg, limited to breakdown of skin L97.921 and DM 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 [facility] [address] [place] [id number] [address] Jul, [facility] [address] [place] [address] [id number] Jul, [place] [address] [place] [address] [id number] Jul, [place] [address] [place] [address] [id number] Jun, Erectile dysfunction, unspecified erectile dysfunction type N52.9 [facility] [address] [place] [address] Jun, [place] [address] [place] [address] [id number] Jun, BMI 40.0-44.9, adult Z68.41 ; Diabetes type 2, uncontrolled E11.65 ; Phantom pain R52 ; Subluxation of right shoulder joint, sequela S43.001S and Erectile dysfunction, unspecified erectile dysfunction type N52.9 [place] [address] [facility] [id number], [place] [address] Jun, DM 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 ; Onychomycosis B35.1 and Hammertoe of left foot M20.42 [facility] [address] [facility] [id number] [place] [address] Jun, [facility] [id number][place] [id number] Jun, DM 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 [place] [address] [id number] [id number] Jun, DM 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 [facility] [address] [place] [address] [id number] May, DM 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 ; Venous insufficiency (chronic) (peripheral) I87.2 ; 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 ; Essential hypertension I10 and Phantom pain R52 [facility] [id number] [place] [address] [id number] Apr, Diabetes type 2, uncontrolled E11.65 ; Acquired absence of right leg below knee Z89.511 ; Essential hypertension I10 ; Reflux esophagitis K21.0 and Phantom pain R52 [facility] [id number] [place] [address] [id number] Apr, BMI 40.0-44.9, adult Z68.41 and Wheelchair bound Z99.3 [facility] [id number], [place] [id number] Mar, [facility] [id number], [place] [id number] Mar, BMI 40.0-44.9, adult Z68.41 ; Diabetes type 2, uncontrolled E11.65 ; Mild intermittent asthma without complication J45.20 ; Phantom pain R52 ; Reflux esophagitis K21.0 and Essential hypertension I10 [facility] [id number] [place] [address] [id number] Feb, Phantom pain R52 [facility] [id number], [place] [id number] Feb, Phantom pain R52 and Acute pain of left shoulder M25.512 [facility] [address] [place] [id number] [place] [address] [id number] Jan, Phantom pain R52 [facility] [address] [place] [address] [place] [address] [id number] Jan, DM 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 ; Cellulitis of left lower extremity L03.116 ; Obstructive sleep apnea syndrome G47.33 ; Thyroid disorder screen Z13.29 and Lipid screening Z13.220 [facility] [address] [id number] [place] [address] [id number] Jan, [facility] [address] [place] [address] [place] [address] [id number] Dec, DM 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 ; Phantom pain R52 and Mild intermittent asthma without complication J45.20 [facility] [address] [place] [address] [place] [address] [id number] Dec, Wound of left lower extremity, subsequent encounter S81.802D [facility] [id number] [place] [address] [id number] Nov, [facility] [address] [place] [address] [id number], [place] [address] Nov, [facility] [id number] [place] [address] [id number] Nov, DM 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 ; Mild intermittent asthma without complication J45.20 ; Essential hypertension I10 and Phantom pain R52 [facility] [id number], [place] [id number] Oct, Phantom pain R52 [facility] [address] [place] [id number] [place] [address] [id number] Sep, Phantom pain R52 ; DM 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 and Essential hypertension I10 [facility] [address] [place] [address] [place] [address] [id number] August, DM 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 ; Phantom pain R52 and Essential hypertension I10 [facility] [address] [place] [id number] [place] [address] [id number] Jul, DM 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 and Phantom pain R52 [facility] [address] [place] [address] [id number] [place] [address] Jun, Onychomycosis B35.1 and DM 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 [facility] [address] [place] [id number] [place] [address] [id number] Jun, DM 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 ; Phantom pain R52 ; Essential hypertension I10 and Diabetes with neurological manifestations, type II or unspecified type, not stated as uncontrolled 250.60 [facility] [address] [place] [id number] [place] [address] [id number] Apr, DM 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 ; Phantom pain R52 ; Essential hypertension I10 and Mild intermittent asthma without complication J45.20 [facility] [address] [place] [id number] [place] [address] [id number] Apr, Need for follow up care after discharge from healthcare facility Z92.89 and Wound of right lower extremity, subsequent encounter S81.801D [facility] [address] [place] [id number] [place] [address] [id number] Mar, Phantom pain R52 ; DM 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 and Essential hypertension I10 [facility] [address] [place] [id number] [place] [address] [id number] Feb, DM 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 ; Phantom pain R52 and Essential hypertension I10 [place] [address] [place] [address] [id number] Jan, Phantom pain R52 and DM 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 [facility] [address] [place] [id number] [place] [address] [id number] Dec, [address] [id number] Dec, DM 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 ; Phantom pain R52 ; Mild intermittent asthma without complication J45.20 and Essential hypertension I10 [facility] [address] [place] [address] Dec, Onychomycosis B35.1 ; Xerosis of skin L85.3 and DM 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 [facility] [id number] [place] [address] [id number] Nov, Acquired absence of right leg below knee Z89.511 [facility] [place] [address] [id number] [place] [phone] Nov, [facility] [place] [address] [place] [id number] [place] [address] [id number] Nov, [facility] [place] [address] [place] [address] [place] [address] [id number] Sep, [facility] [address] [place] [address] [place] [address], [place] [id number] Sep, Diabetes type 2, uncontrolled E11.65 ; Leg wound, left, initial encounter S81.802A and Erectile disorder due to medical condition in male N52.1 [facility] [place] [address] [place] [address] [place] [address] [id number] Sep, [facility] [address] [place] [address] [place] [address] [id number] Jul, [facility] [address] [place] [address] [place] [address] [id number] Jul, [facility] [address] [place] [address] [place] [address] [id number] Jul, [facility] [address] [place] [address] [place] [address] [id number] Jul, 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 ; Varicose vein of leg I83.93 ; Diabetes type 2, uncontrolled E11.65 and Chronic pain G89.29 [facility] [id number], [place] [id number] Jul, [facility] [address] [place] [address] [place] [address] [id number] Jul, Diabetes with neurological manifestations, type II or unspecified type, not stated as uncontrolled 250.60 [facility] [place] [id number] [place] [address] [id number] Jul, [facility] [address] [place] [id number] [place] [address] [id number] Jul, [facility] [place] [id number] [place] [address] [id number] Jun, Diabetes type 2, uncontrolled E11.65 [facility] [place] [address] [place] [address] [place] [address] [id number] Jun, Pain in right knee M25.561 ; Pain in left knee M25.562 ; Other chronic pain G89.29 and Primary osteoarthritis of both knees M17.0 [facility] [place] [address] [place] [address] [place] [address] [id number] Apr, Diabetes type 2, uncontrolled E11.65 ; Puncture wound of foot, left, initial encounter S91.332A and Encounter for immunization Z23 [place] [address] [place] [address] [id number] Apr, [facility] [place] [address] [place] [id number] [place] [address] [id number] Apr, [facility] [place] [id number] [place] [address] [id number] Feb, Acquired absence of right leg below knee Z89.511 [place] [address] [place] [address] [id number] Feb, Acquired absence of right leg below knee Z89.511 [facility] [place] [address] [place] [address] [place] [address] [id number] Feb, Diabetes type 2, uncontrolled E11.65 and Acquired absence of right leg below knee Z89.511 [facility] [address] [place] [address] [id number] Jan, [facility] [id number] [place] [address] [id number] Jan, [facility] [address]005[address]100[place], [place] [address] Jan, [facility] [place] [address] [place] [address] [place] [address] [id number] Jan, [facility] [id number][place] [id number] Dec, [facility] [place] [id number] [place] [address] [id number] Dec, Diabetes with neurological manifestations, type II or unspecified type, not stated as uncontrolled 250.60 and Open wound of foot except toe(s) alone, without mention of complication 892.0 [facility] [address] [place] [address] [place] [address] [id number] Dec, [facility] [address] [place] [address] [place] [address] [id number] Nov, [facility] [address] [id number] Nov, Cellulitis of foot 682.7 [facility] [address] [id number] Oct, [facility] [address] [id number] Oct, Corneal abrasion 918.1 [facility] [address] [place] [address] [place] [address] [id number] Oct, [facility] [address] [place] [address] [place] [address] [id number] Oct, [facility] [address] [place] [address] [place] [address] [id number] August, [facility] [address] [place] [address] [place] [address] [id number] August, [facility] [address] [place] [address] [place] [address] [id number] August, [facility] [id number] [place] [address] [id number] August, [facility] [address] [place] [address] [place] [address] [id number] August, Diabetes mellitus without mention of complication, type II or unspecified type, not stated as uncontrolled 250.00 [facility] [address] [address] Jul, [facility] [address] [address] Jul, [facility] [address] [address] Apr, [facility] [address] [id number] [place] [address] Apr, [facility] [place] [facility] [address] [id number] [place] [address] Mar, [facility] [place] [facility] [address] [id number] [place] [address] Mar, [facility] [place] [facility] [address] [id number] [place] [address] Mar, [facility] [address] [id number] [place] [address] Mar, [facility] [place] [facility] [address] [id number] [place] [address] Mar, [facility] [place] [facility] [address] [id number] [place] [address] Mar, [facility] [place] [address] [facility] [id number] [id number] Mar, [facility] [place] [facility] [address] [id number] [place] [address] Mar, [facility] [place] [facility] [address] [id number] [place] [address] Mar, [facility] [place] [facility] [address] [id number] [place] [address] Mar, [facility] [place] [facility] [address] [id number], [place] [address] Mar, [facility] [place] [facility] [address] [id number] [place] [address] Mar, [facility] [place] [facility] [address] [id number] [place] [address] Mar, [facility] [place] [address] [id number] [id number] Mar, [facility] [place] [facility] [address] [id number] [place] [address] Jan, [facility] [address] [id number] [place] [id number] Jan, [facility] [place] [facility] [address] [id number] [place] [address] Jan, [facility] [place] [facility] [address] [id number] [place] [address] Jan, [facility] [place] [facility] [address] [id number] [place] [address] Jan, [facility] [address] [id number] [place] [id number] Jan, [facility] [place] [facility] [address] [id number] [place] [address] Dec, [facility] [address] [id number] [place] [id number] Nov, [facility] [place] [facility] [address] [id number] [place] [address] Nov, [facility] [address] [id number] [place] [phone] Oct, [facility] [place] [facility] [address] [id number] [place] [address] Oct, [facility] [address] [id number] [place] [id number] Oct, [facility] [place] [facility] [address] [id number] [place] [address] Oct, [facility] [place] [facility] [address] [id number] [place] [address] August, [facility] [place] [facility] [address] [id number] [place] [address] August, [facility] [place] [facility] [address] [facility] [id number] [place] [address] August, [facility] [place] [facility] [address] [id number] [place] [address] August, [facility] [address] [id number] [place] [id number] Jul, [facility] [address] [facility] [id number], [place] [address] Jul, [facility] [address] [facility] [id number] [place] [id number] Jun, [facility] [place] [facility] [address] [facility] [id number], [place] [address] Jun, [facility] [address] [facility] [id number] [place] [id number] Jun, [facility] [place] [facility] [address] [facility] [id number] [place] [address] Jun, [facility] [address] [facility] [id number] [place] [id number] Jun, [facility] [place] [facility] [id number], [place] [address] Jun, [facility] [address] [facility] [id number][place] [id number] Jun, [facility] [place] [facility] [address] [id number], [place] [address] Jun, [facility] [address] [facility] [id number][place] [id number] May, [facility] [place] [facility] [address] [id number], [place] [address] May, [facility] [address] [facility] [id number][place] [id number] May, [facility] [place] [facility] [address] [facility] [id number], [place] [address] May, [facility] [place] [facility] [address] [facility] [id number] [place] [address] May, [facility] [place] [facility] [address] [facility] [id number], [place] [address] May, [facility] [address] [facility] [id number] [place] [id number] May, [facility] [address] [facility] [id number], [place] [address] May, [facility] [facility] [address] [id number] [place] [id number] May, [facility] [address] [facility] [id number], [place] [address] May, [facility] [address] [facility] [id number] [place] [address] Apr, [facility] [address] [facility] [id number][place] [address] Apr, [facility] [address] [id number][place] [id number] Apr, [facility] [address], [place] [address] Apr, [facility] [address] [id number][place] [id number] Sep, [facility] [address] [facility] [id number], [place] [address] Sep, [facility] [address] [id number][place] [id number] Sep, [facility] [address] [id number][place] [id number] Sep, [facility] [address] [facility] [id number], [place] [address] Jun, [facility] [address] [id number] [place] [id number] Nov, [facility] [address] [id number] [place] [id number] Nov, [facility] [address] [id number] [place] [id number] Nov, [facility] [address] [id number] [place] [id number] Nov, [facility] [address] [id number] [place] [id number] Nov, [facility] [id number][place] [id number] Nov, [facility] [id number][place] [id number] Nov, [facility] [id number][place] [id number] Nov, [facility] [address] [id number][place] [id number] Nov, [facility] [id number], [place] [id number] Sep, [facility] [id number][place] [id number] Sep, [facility] [id number] [place] [id number] Sep, [facility] [id number], [place] [id number] Sep, [facility] [id number], [place] [id number] August, [facility] [id number], [place] [id number] August, [facility] [id number], [place] [id number] August, [facility] [id number], [place] [id number] August, [facility] [id number], [place] [address] Sep, IMMUNIZATIONS No Known Immunizations SOCIAL HISTORY Never Assessed REASON FOR VISIT [facility] [place] C[place] VITAL SIGNS MEDICATIONS Unknown [...] 11/2014 Surgical History amputation right mid-calf/foot at [facility] 01/2015 Surgical History amputation of index finger right hand 06/2018 Hospitalization History [facility] post op infection to right foot, amputations to mid-calf 01/2015 Hospitalization History [facility] In post-op 7 days, discharges with home health -02/2015 Hospitalization History [facility] visit for sore on right stump 04/2016 Hospitalization History [facility] wound on left lower leg, culture +for Strep G 12/2016
--- OUTSIDE RECORDS SUMMARY | 2018-10-31 17:30 | XMS REPORT ---
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 Active 892162889 Problem Erectile dysfunction, unspecified erectile dysfunction type N52.9 Active 719567246 Problem Venous insufficiency (chronic) (peripheral) I87.2 Active 59084046 Problem Major depressive disorder in partial remission, unspecified whether recurrent F32.4 Active 56053563 Problem DM 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 Active 96260900 Problem Anaphylactic reaction to bee sting, accidental or unintentional, initial encounter T63.441A Active 220356144 Problem Diabetes type 2, uncontrolled E11.65 Active 246564963 Problem 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 Active 469200910 Problem Skin ulcer of left lower leg, limited to breakdown of skin L97.921 Active 85948221 Problem Other chronic pain G89.29 Active 85021488 Problem Varicose veins of left lower extremity with ulcer other part of lower leg I83.028 Active 21016010 Problem Essential hypertension I10 Active 07035506 Problem Mild intermittent asthma without complication J45.20 Active 827757165 Problem Acquired absence of right leg below knee Z89.511 Active 643528658 Problem Phantom pain R52 Active 404642459 Problem Acute pain of left shoulder M25.512 Active 52770937 Problem Reflux esophagitis K21.0 Active 717873854 Problem Obstructive sleep apnea syndrome G47.33 Active 74352479 Problem Hammertoe of left foot M20.42 Active 889380746 Problem Cellulitis of left lower extremity L03.116 Active 595782343 Problem Wheelchair bound Z99.3 Active 505574322 ALLERGIES Substance Reaction Event Type Date Status Victoza vomiting Drug Allergy Dec, Active Lopid vomiting Drug Allergy Dec, Active Cleocin vomiting Drug Allergy Dec, Active Cephalexin rash Drug Allergy Dec, Active ENCOUNTERS Encounter Location Date [facility] [address] [address] Mar, [address] [place] [address] [id number] Jan, [facility] [id number] [place] [address] Dec, Onychomycosis B35.1 and DM 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 [place] [id number] [place] [address] [id number] Dec, [place] [id number] [place] [address] [id number] Dec, Diabetes type 2, uncontrolled E11.65 ; Essential hypertension I10 ; Reflux esophagitis K21.0 ; Major depressive disorder in partial remission, unspecified whether recurrent F32.4 ; Phantom pain R52 and BMI 40.0-44.9, adult Z68.41 [place] [id number] [place] [address] [id number] Nov, Phantom pain R52 [place] [id number] [place] [address] [id number] Nov, Diabetes type 2, uncontrolled E11.65 and BMI 40.0-44.9, adult Z68.41 [place] [id number] [place] [address] [id number] Oct, Anaphylactic reaction to bee sting, accidental or unintentional, initial encounter T63.441A ; Pain in right shoulder M25.511 and Other chronic pain G89.29 [place] [id number] [place] [address] [id number] Oct, Diabetes type 2, uncontrolled E11.65 [address] [place] [address] [id number] Oct, Diabetes type 2, uncontrolled E11.65 and Cellulitis of left lower extremity L03.116 [id number] [id number] Oct, Phantom pain R52 [facility] [address] [place] [address] Sep, Onychomycosis B35.1 ; Impaired circulation of left leg I99.9 and DM 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 [facility] [address] [place] [address] [id number] Sep, BMI 40.0-44.9, adult Z68.41 ; Skin ulcer of left lower leg, limited to breakdown of skin L97.921 ; Acute pain of left shoulder M25.512 ; DM 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 ; Mild intermittent asthma without complication J45.20 and Phantom pain R52 [facility] [address] [place] [address] [id number] Sep, Phantom pain R52 [address] [place] [address] [id number] August, Phantom pain R52 [facility] [id number] [place] [address] [id number] August, Acquired absence of right leg below knee Z89.[address] [place] [address] [id number] August, Acquired absence of right leg below knee Z89.511 [place] [address] [address] August, Diabetes type 2, uncontrolled E11.65 [place] [address] [place] [address] August, [place] [address] [place] [address] August, [address] [id number] August, BMI 40.0-44.9, adult Z68.41 ; 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 and Acquired absence of right leg below knee Z89.511 [facility] [address] [id number] [place] [address] August, [facility] [address] [id number] Jul, Skin ulcer of left lower leg, limited to breakdown of skin L97.921 [facility] [id number] [id number] Jul, [place] [id number] [place] [address] [id number] Jul, BMI 40.0-44.9, adult Z68.41 ; Skin ulcer of left lower leg, limited to breakdown of skin L97.921 and DM 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 [place] [id number] [place] [address] Jul, [facility] [address] [id number] Jul, [address] [place] [address] [id number] Jul, [facility] [address] [id number] Jun, Erectile dysfunction, unspecified erectile dysfunction type N52.9 [place] [id number] [place] [address] Jun, [address] [id number] Jun, BMI 40.0-44.9, adult Z68.41 ; Diabetes type 2, uncontrolled E11.65 ; Phantom pain R52 ; Subluxation of right shoulder joint, sequela S43.001S and Erectile dysfunction, unspecified erectile dysfunction type N52.9 [place] [id number] [place] [address] Jun, DM 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 ; Onychomycosis B35.1 and Hammertoe of left foot M20.42 [place] [id number] [place] [address] Jun, [facility] [address] [id number] Jun, DM 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 [place] [address] [facility] [id number] [phone] Jun, DM 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 [facility] [address] [facility] [id number] [id number] May, DM 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 ; Venous insufficiency (chronic) (peripheral) I87.2 ; 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 ; Essential hypertension I10 and Phantom pain R52 [facility] [id number] [place] [address] [id number] Apr, Diabetes type 2, uncontrolled E11.65 ; Acquired absence of right leg below knee Z89.511 ; Essential hypertension I10 ; Reflux esophagitis K21.0 and Phantom pain R52 [facility] [id number] [place] [address] [id number] Apr, BMI 40.0-44.9, adult Z68.41 and Wheelchair bound Z99.3 [facility] [address] [facility] [id number] [place] [address] [id number] Mar, [facility] [id number] [place] [address] [id number] Mar, BMI 40.0-44.9, adult Z68.41 ; Diabetes type 2, uncontrolled E11.65 ; Mild intermittent asthma without complication J45.20 ; Phantom pain R52 ; Reflux esophagitis K21.0 and Essential hypertension I10 [facility] [address] [facility] [id number] [id number] Feb, Phantom pain R52 [facility] [id number] [place] [address] [id number] Feb, Phantom pain R52 and Acute pain of left shoulder M25.512 [facility] [id number] [place] [address] [id number] Jan, Phantom pain R52 [facility] [id number] [place] [address] [id number] Jan, DM 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 ; Cellulitis of left lower extremity L03.116 ; Obstructive sleep apnea syndrome G47.33 ; Thyroid disorder screen Z13.29 and Lipid screening Z13.220 [facility] [id number] [place] [address] [id number] Jan, [facility] [id number] [place] [address] [id number] Dec, DM 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 ; Phantom pain R52 and Mild intermittent asthma without complication J45.20 [facility] [id number] [place] [address] [id number] Dec, Wound of left lower extremity, subsequent encounter S81.802D [facility] [address] [id number] Nov, [facility] [address] [address] Nov, [facility] [address] [id number] Nov, DM 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 ; Mild intermittent asthma without complication J45.20 ; Essential hypertension I10 and Phantom pain R52 [facility] [id number] [place] [address] [id number] Oct, Phantom pain R52 [facility] [address] [id number] Sep, Phantom pain R52 ; DM 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 and Essential hypertension I10 [facility] [id number] [place] [address] [id number] August, DM 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 ; Phantom pain R52 and Essential hypertension I10 [facility] [id number] [place] [address] [id number] Jul, DM 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 and Phantom pain R52 [facility] [address] [address] Jun, Onychomycosis B35.1 and DM 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 [facility] [address] [id number] Jun, DM 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 ; Phantom pain R52 ; Essential hypertension I10 and Diabetes with neurological manifestations, type II or unspecified type, not stated as uncontrolled 250.60 [facility] [id number] [place] [address] [id number] Apr, DM 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 ; Phantom pain R52 ; Essential hypertension I10 and Mild intermittent asthma without complication J45.20 [facility] [id number] [place] [address] [id number] Apr, Need for follow up care after discharge from healthcare facility Z92.89 and Wound of right lower extremity, subsequent encounter S81.801D [place] [id number] [place] [address] [id number] Mar, Phantom pain R52 ; DM 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 and Essential hypertension I10 [facility] [address] [place] [address] [id number] Feb, DM 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 ; Phantom pain R52 and Essential hypertension I10 [facility] [id number] [place] [address] [id number] Jan, Phantom pain R52 and DM 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 [facility] [id number] [place] [address] [id number] Dec, [place] [id number] [place] [address] [id number] Dec, DM 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 ; Phantom pain R52 ; Mild intermittent asthma without complication J45.20 and Essential hypertension I10 [facility] [address], [place] [address] Dec, Onychomycosis B35.1 ; Xerosis of skin L85.3 and DM 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 [facility] [address] [place] [address] [id number] Nov, Acquired absence of right leg below knee Z89.511 [facility] [address] [place] [address] [id number] Nov, [place] [id number] [place] [id number] Nov, [facility] [address] [id number] [place] [id number] Sep, [facility] [address] [id number] [place] [id number] Sep, Diabetes type 2, uncontrolled E11.65 ; Leg wound, left, initial encounter S81.802A and Erectile disorder due to medical condition in male N52.1 [facility] [address] [id number] [place] [id number] Sep, [facility] [address] [id number] [place] [id number] Jul, [facility] [address] [id number] [place] [id number] Jul, [facility] [place] [address] [id number] [place] [id number] Jul, [facility] [place] [id number] [place] [address], [place] [id number] Jul, 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 ; Varicose vein of leg I83.93 ; Diabetes type 2, uncontrolled E11.65 and Chronic pain G89.29 [facility] [place] [address] [id number] [place] [id number] Jul, [facility] [place] [address] [id number] [place] [id number] Jul, Diabetes with neurological manifestations, type II or unspecified type, not stated as uncontrolled 250.60 [facility] [address] [id number] [place] [id number] Jul, [facility] [address] [id number] [place] [id number] Jul, [facility] [address] [id number] [place] [id number] Jun, Diabetes type 2, uncontrolled E11.65 [facility] [address] [id number] [place] [id number] Jun, Pain in right knee M25.561 ; Pain in left knee M25.562 ; Other chronic pain G89.29 and Primary osteoarthritis of both knees M17.0 [facility] [id number] [id number] Apr, Diabetes type 2, uncontrolled E11.65 ; Puncture wound of foot, left, initial encounter S91.332A and Encounter for immunization Z23 [facility] [id number] [place] [address] [id number] Apr, [facility] [place] [id number] [place] [address] [id number] Apr, [facility] [place] [id number] [place] [address] [id number] Feb, Acquired absence of right leg below knee Z89.511 [place] [id number] [place] [address] [id number] Feb, Acquired absence of right leg below knee Z89.[address] [place] [address] [id number] Feb, Diabetes type 2, uncontrolled E11.65 and Acquired absence of right leg below knee Z89.511 [facility] [id number] [place] [address] [id number] Jan, [address] [place] [address] [id number] Jan, [facility] [address], [place] [address] Jan, [address] [id number] Jan, [facility] [place] [id number] [place] [id number] Dec, [address] [place] [address] [id number] Dec, Diabetes with neurological manifestations, type II or unspecified type, not stated as uncontrolled 250.60 and Open wound of foot except toe(s) alone, without mention of complication 892.0 [facility] [address] [id number] Dec, [place] [id number] [place] [address] [id number] Nov, [facility] [place] [address] [id number] [id number] Nov, Cellulitis of foot 682.7 [facility] [place] [id number] [place] [address] [id number] Oct, [facility] [place] [address] [id number] [place] [address] [id number] Oct, Corneal abrasion 918.1 [facility] [id number] [place] [address] [id number] Oct, [facility] [address] [id number] [place] [address] [id number] Oct, [facility] [place] [id number] [place] [address] [id number] August, [facility] [place] [address] [id number] [place] [address] [id number] August, [facility] [place] [address] [id number] [place] [address] [id number] August, [facility] [address] [id number] [place] [address] [id number] August, [facility] [place] [id number], [place] [id number] August, Diabetes mellitus without mention of complication, type II or unspecified type, not stated as uncontrolled 250.00 [facility] [id number] [place] [address] Jul, [facility] [id number] [place] [address] Jul, [facility] [id number] [place] [address] Apr, [facility] [address] [address] Apr, [facility] [id number] [place] [address] Mar, [facility] [id number] [place] [address] Mar, [facility] [address] [id number] [place] [address] Mar, [facility] [place] [facility] [address] [id number] [place] [address] Mar, [facility] [place] [facility] [address] [id number] [place] [address] Mar, [facility] [place] [facility] [address] [id number] [place] [address] Mar, [facility] [place] [address] [facility] [id number] [place] [id number] Mar, [facility] [place] [facility] [address] [id number] [place] [address] Mar, [facility] [place] [facility] [address] [facility] [id number] [place] [address] Mar, [facility] [place] [facility] [address] [facility] [id number] [place] [address] Mar, [facility] [place] [facility] [address] [facility] [id number] [place] [address] Mar, [facility] [place] [facility] [address] [facility] [id number] [place] [address] Mar, [facility] [place] [facility] [address] [facility] [id number] [place] [address] Mar, [facility] [address] [facility] [id number][place] [id number] Mar, [facility] [place] [facility] [address] [id number], [place] [address] Jan, [facility] [address] [facility] [id number][place] [id number] Jan, [facility] [place] [facility] [address] [facility] [id number] [place] [address] Jan, [facility] [place] [facility] [address] [facility] [id number], [place] [address] Jan, [facility] [place] [facility] [address] [id number] [place] [address] Jan, [facility] [address] [facility] [id number] [place] [id number] Jan, [facility] [place] [facility] [address] [facility] [id number] [place] [address] Dec, [facility] [address] [facility] [id number] [place] [id number] Nov, [facility] [place] [facility] [address] [facility] [id number] [place] [address] Nov, [facility] [address] [facility] [id number] [place] [id number] Oct, [facility] [place] [facility] [address] [facility] [id number], [place] [address] Oct, [facility] [address] [facility] [id number][place] [id number] Oct, [facility] [place] [facility] [address] [facility] [id number], [place] [address] Oct, [facility] [place] [facility] [address] [facility] [id number], [place] [address] August, [facility] [place] [facility] [address] [facility] [id number], [place] [address] August, [facility] [place] [facility] [address] [facility] [id number][place] [address] August, [facility] [place] [facility] [address] [facility] [id number], [place] [address] August, [facility] [address] [facility] [id number][place] [id number] Jul, [facility] [place] [facility] [address] [facility] [id number], [place] [address] Jul, [facility] [address] [facility] [id number] [place] [id number] Jun, [facility] [place] [facility] [address] [facility] [id number], [place] [address] Jun, [facility] [address] [id number] [place] [id number] Jun, [facility] [place] [facility] [address] [facility] [id number], [place] [address] Jun, [facility] [address] [id number] [place] [id number] Jun, [facility] [place] [facility] [address] [facility] [id number], [place] [address] Jun, [facility] [address] [facility] [id number] [place] [id number] Jun, [facility] [place] [facility] [address] [id number] [address] Jun, [facility] [address] [id number] [place] [id number] May, [facility] [place] [facility] [address] [address] May, [facility] [address] [facility] [id number], [place] [id number] May, [facility] [id number], [place] [address] May, [facility] [address] [id number], [place] [address] May, [facility] [address] [id number], [place] [address] May, [facility] [address] [facility] [id number][place] [id number] May, [facility] [address] [id number], [place] [address] May, [facility] [address] [facility] [id number] [place] [id number] May, [facility] [address] [id number], [place] [address] May, [facility] [address] [facility] [id number], [place] [address] Apr, [facility] [address] [facility] [id number], [place] [address] Apr, [facility] [address] [id number][place] [id number] Apr, [facility] [address] [facility] [id number], [place] [address] Apr, [facility] [address] [id number][place] [id number] Sep, [facility] [address] [facility] [id number], [place] [address] Sep, [facility] [address] [id number][place] [id number] Sep, [facility] [address] [id number][place] [id number] Sep, [facility] [address] [facility] [id number], [place] [address] Jun, [facility] [address] [id number][place] [id number] Nov, [facility] [address] [id number][place] [id number] Nov, [facility] [address] [id number][place] [id number] Nov, [facility] [address] [id number][place] [id number] Nov, [facility] [address] [id number][place] [id number] Nov, [facility] [address] [id number] [place] [id number] Nov, [facility] [address] [id number][place] [id number] Nov, [facility] [address] [id number] [id number] Nov, [facility] [address] [id number][place] [id number] Nov, [facility] [address] [facility] [id number][place] [id number] Sep, [facility] [address] [id number][place] [id number] Sep, [facility] [place] [address] [id number][place] [id number] Sep, [facility] [address] [id number][place] [id number] Sep, [facility] [place] [id number][place] [id number] August, [facility] [place] [address] [id number][place] [id number] August, [facility] [place] [address] [id number][place] [id number] August, [facility] [place] [address] [id number][place] [id number] August, [facility] [address] [id number] [address] Sep, IMMUNIZATIONS No Known Immunizations SOCIAL HISTORY Never Assessed REASON FOR VISIT CH- 4 week Diabetes visit Medardo MARIE PLAN OF CARE Activity Details Follow Up 4 Weeks Reason:dm VITAL SIGNS Height 72 in 2017-12-16 Weight 306 lbs 2017-12-16 Temperature 97.2 degrees Fahrenheit 2017-12-16 Heart Rate 88 bpm 2017-12-16 Respiratory Rate 16 2017-12-16 BMI 41.50 kg/m2 2017-12-16 Blood pressure systolic 140 mmHg 2017-12-16 Blood pressure diastolic 90 mmHg 2017-12-16 MEDICATIONS Medication Instructions Dosage Frequency Start Date End Date Duration Status BD Insulin Syringe 30G X 1/2 subcutaneously 5 times daily as directed Dec, Active Zoloft 50 mg Orally Once a day 1 tablet 24h Active Lancets - as directed Mar, Active Potassium Chloride 20 MEQ Orally Once a day 1 tablet 24h Dec, Active Knee Compression Sleeve/L/XL - sleeve and liner August, Active Amlodipine Besylate 10 mg Orally Once a day 1 tablet 24h Active NovoLog 100 UNIT/ML Subcutaneous 3 times a day, E11.65 60 units Jun, Active Diovan HCT 160-12.5 MG Orally Once a day take 1 tablet 24h Active BD Pen Needle Nedra U/F 32G X 4 MM as directed 8h Sep, Active Leg Prosthesis N/A DON: 99 as directed Right below knee definitive Nov, Active Tresiba FlexTouch 200 UNIT/ML Subcutaneous at bedtime 155 units Sep, Active Pioglitazone HCl 30 MG DX- E11.65 Once a day 1 tablet 24h Jun, Active EpiPen 0.3 mg/0.3ml Injection as directed as directed Oct, Active Sildenafil Citrate 20 mg Orally do not take more than 1-2 tabs in a 24 hour period 1-2 tablets prn for sexual activity Jun, Active Gemfibrozil 600 MG Orally twice a day take 1 tablet 12h Active Blood Pressure Kit ... as directed Mar, Active Wheelchair - as directed Apr, lifetime Active Omeprazole 40 mg Orally twice a day 1 capsule 12h Active Blood Glucose Test Strip - as directed 8h Dec, 30 days Active Silvadene 1 % Externally Once a day 1 application to affected area 24h Jul, Active Walker - as directed Apr, Active ProAir HFA 108 (90 Base) MCG/ACT Inhalation every 4-6 hours as needed 2 puffs Jul, Active Hydrocodone-Acetaminophen 7.5-325 MG Orally every 6 hrs PRN must last 28 days 1 tablet as needed Dec, 0 days Active Singulair 10 MG Orally Once a day 1 tablet in the evening 24h Active Gabapentin 600 MG Orally Three times a day 1 capsule 1 tab qhs x 5 d then bid x 5 d then tid 8h Dec, Active MetFORMIN HCl ER 750 MG Orally twice a day 1 tablet with evening meal 12h Dec, Active Ibuprofen 800 MG Orally Three times a day 1 tablet with food or milk as needed 8h Feb, Active Farxiga 10 MG Orally Once a day in the morning 1 tablet Active Amitriptyline HCl 25 MG Orally Once a day .5-1 tablet 24h Dec, Active RESULTS No Results PROCEDURES Procedure Date Ordered Result Body Site [facility] VISIT ESTABLISHED PATIENT Dec 16, 2017 INSTRUCTIONS MEDICATIONS ADMINISTERED No Known Medications MEDICAL [...] 11/2014 Surgical History amputation right mid-calf/foot at [facility] 01/2015 Hospitalization History [facility] post op infection to right foot, amputations to mid-calf 01/2015 Hospitalization History [facility] post-op 7 days, discharges with home health -02/2015 Hospitalization History [facility] ER visit for sore on right stump 04/2016 Hospitalization History [facility] wound on left lower leg, culture +for Strep G 12/2016
--- OUTSIDE RECORDS SUMMARY | 2018-10-31 17:30 | XMS REPORT ---
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 Active 278390620 Problem Erectile dysfunction, unspecified erectile dysfunction type N52.9 Active 160027277 Problem Venous insufficiency (chronic) (peripheral) I87.2 Active 56979581 Problem Major depressive disorder in partial remission, unspecified whether recurrent F32.4 Active 36079253 Problem DM 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 Active 96777401 Problem Anaphylactic reaction to bee sting, accidental or unintentional, initial encounter T63.441A Active 816623124 Problem Diabetes type 2, uncontrolled E11.65 Active 388135363 Problem 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 Active 797349054 Problem Skin ulcer of left lower leg, limited to breakdown of skin L97.921 Active 70721057 Problem Other chronic pain G89.29 Active 68845488 Problem Varicose veins of left lower extremity with ulcer other part of lower leg I83.028 Active 13499421 Problem Essential hypertension I10 Active 56008699 Problem Mild intermittent asthma without complication J45.20 Active 836329922 Problem Acquired absence of right leg below knee Z89.511 Active 384836719 Problem Phantom pain R52 Active 188594316 Problem Acute pain of left shoulder M25.512 Active 39924072 Problem Reflux esophagitis K21.0 Active 949834371 Problem Obstructive sleep apnea syndrome G47.33 Active 84022780 Problem Hammertoe of left foot M20.42 Active 551581230 Problem Cellulitis of left lower extremity L03.116 Active 667204204 Problem Wheelchair bound Z99.3 Active 746027071 ALLERGIES No Information ENCOUNTERS Encounter Location Date Diagnosis [facility] [id number] [place] [address] Mar, [id number] [place] [address] [id number] Mar, [facility] [address] [address] Feb, [address] [place] [id number] [place] [address] [id number] Feb, Diabetes type 2, uncontrolled E11.65 ; Skin ulcer of left lower leg, limited to breakdown of skin L97.921 and BMI 40.0-44.9, adult Z68.41 [place] [address] [address] Jan, [id number] [place] [address] [id number] Jan, Diabetes type 2, uncontrolled E11.65 and BMI 40.0-44.9, adult Z68.41 [facility] [id number] [place] [address] Dec, Onychomycosis B35.1 and DM 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 [place] [id number] [place] [address] [id number] Dec, [address] [place] [address] [place] [address] [id number] Dec, Diabetes type 2, uncontrolled E11.65 ; Essential hypertension I10 ; Reflux esophagitis K21.0 ; Major depressive disorder in partial remission, unspecified whether recurrent F32.4 ; Phantom pain R52 and BMI 40.0-44.9, adult Z68.41 [address] [address] [id number] [place] [address] [id number] Nov, Phantom pain R52 [address] [id number] Nov, Diabetes type 2, uncontrolled E11.65 and BMI 40.0-44.9, adult Z68.41 [address] [id number] [place] [address] [id number] Oct, Anaphylactic reaction to bee sting, accidental or unintentional, initial encounter T63.441A ; Pain in right shoulder M25.511 and Other chronic pain G89.29 [address] [place] [address] [id number] Oct, Diabetes type 2, uncontrolled E11.65 [address] [id number] [place] [address] [id number] Oct, Diabetes type 2, uncontrolled E11.65 and Cellulitis of left lower extremity L03.116 [address] [address] [place] [address] [id number] Oct, Phantom pain R52 [address] [address] [address] Sep, Onychomycosis B35.1 ; Impaired circulation of left leg I99.9 and DM 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 [address] [address] [place] [address] [id number] Sep, BMI 40.0-44.9, adult Z68.41 ; Skin ulcer of left lower leg, limited to breakdown of skin L97.921 ; Acute pain of left shoulder M25.512 ; DM 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 ; Mild intermittent asthma without complication J45.20 and Phantom pain R52 [address] [place] [address] [id number] Sep, Phantom pain R52 [address] [place] [address] [id number] August, Phantom pain R52 [facility] [id number] [place] [address] [id number] August, Acquired absence of right leg below knee Z89.511 [address] [address] [place] [address] [id number] August, Acquired absence of right leg below knee Z89.511 [facility] [id number] [place] [address] August, Diabetes type 2, uncontrolled E11.65 [place] [address] [id number] [address] August, [place] [id number] [place] [address] August, [address] [id number] [place] [address] [id number] August, BMI 40.0-44.9, adult Z68.41 ; 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 and Acquired absence of right leg below knee Z89.511 [address] [id number] [place] [address] August, [address] [place] [address] [id number] Jul, Skin ulcer of left lower leg, limited to breakdown of skin L97.921 [address] [address] [place] [address] [id number] Jul, [address] [address] [place] [address] [id number] Jul, BMI 40.0-44.9, adult Z68.41 ; Skin ulcer of left lower leg, limited to breakdown of skin L97.921 and DM 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 [place] [address], [place] [address] Jul, [address] [place] [address] [id number] Jul, [address] [place] [address] [id number] Jul, [address] [address] [place] [address] [id number] Jun, Erectile dysfunction, unspecified erectile dysfunction type N52.9 [place] [address] [place] [address] Jun, [address] [place] [address] [id number] Jun, BMI 40.0-44.9, adult Z68.41 ; Diabetes type 2, uncontrolled E11.65 ; Phantom pain R52 ; Subluxation of right shoulder joint, sequela S43.001S and Erectile dysfunction, unspecified erectile dysfunction type N52.9 [facility] [address], [place] [address] Jun, DM 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 ; Onychomycosis B35.1 and Hammertoe of left foot M20.42 [facility] [address], [place] [address] Jun, [address] [id number] [id number] Jun, DM 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 [id number] [id number] Jun, DM 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 [address] [place] [address] [id number] May, DM 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 ; Venous insufficiency (chronic) (peripheral) I87.2 ; 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 ; Essential hypertension I10 and Phantom pain R52 [address] [place] [address] [id number] Apr, Diabetes type 2, uncontrolled E11.65 ; Acquired absence of right leg below knee Z89.511 ; Essential hypertension I10 ; Reflux esophagitis K21.0 and Phantom pain R52 [address] [place] [address] [id number] Apr, BMI 40.0-44.9, adult Z68.41 and Wheelchair bound Z99.3 [address] [place] [address] [id number] Mar, [address] [address] [place] [address] [id number] Mar, BMI 40.0-44.9, adult Z68.41 ; Diabetes type 2, uncontrolled E11.65 ; Mild intermittent asthma without complication J45.20 ; Phantom pain R52 ; Reflux esophagitis K21.0 and Essential hypertension I10 [facility] [id number] [place] [address] [id number] Feb, Phantom pain R52 [place] [address] [id number] Feb, Phantom pain R52 and Acute pain of left shoulder M25.512 [facility] [id number] [place] [address] [id number] Jan, Phantom pain R52 [place] [id number] [place] [address] [id number] Jan, DM 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 ; Cellulitis of left lower extremity L03.116 ; Obstructive sleep apnea syndrome G47.33 ; Thyroid disorder screen Z13.29 and Lipid screening Z13.220 [facility] [id number] [place] [address] [id number] Jan, [address] [id number] Dec, DM 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 ; Phantom pain R52 and Mild intermittent asthma without complication J45.20 [facility] [id number] [place] [address] [id number] Dec, Wound of left lower extremity, subsequent encounter S81.802D [place] [address] [place] [address] [id number] Nov, [facility] [id number] [place] [address] Nov, [facility] [id number] [place] [address] [id number] Nov, DM 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 ; Mild intermittent asthma without complication J45.20 ; Essential hypertension I10 and Phantom pain R52 [address] [id number] Oct, Phantom pain R52 [facility] [address] [id number] Sep, Phantom pain R52 ; DM 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 and Essential hypertension I10 [place] [address] [place] [address] [id number] August, DM 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 ; Phantom pain R52 and Essential hypertension I10 [address] [place] [address] [id number] Jul, DM 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 and Phantom pain R52 [facility] [address], [place] [address] Jun, Onychomycosis B35.1 and DM 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 [facility] [address] [place] [address] [id number] Jun, DM 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 ; Phantom pain R52 ; Essential hypertension I10 and Diabetes with neurological manifestations, type II or unspecified type, not stated as uncontrolled 250.60 [address] [place] [address] [id number] Apr, DM 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 ; Phantom pain R52 ; Essential hypertension I10 and Mild intermittent asthma without complication J45.20 [facility] [id number] [place] [address] [id number] Apr, Need for follow up care after discharge from healthcare facility Z92.89 and Wound of right lower extremity, subsequent encounter S81.801D [address] [place] [address] [id number] Mar, Phantom pain R52 ; DM 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 and Essential hypertension I10 [address] [place] [address] [id number] Feb, DM 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 ; Phantom pain R52 and Essential hypertension I10 [address] [place] [address] [id number] Jan, Phantom pain R52 and DM 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 [address] [place] [address] [id number] Dec, [address] [place] [address] [id number] Dec, DM 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 ; Phantom pain R52 ; Mild intermittent asthma without complication J45.20 and Essential hypertension I10 [facility] [address], [place] [address] Dec, Onychomycosis B35.1 ; Xerosis of skin L85.3 and DM 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 [facility] [id number] [place] [address] [id number] Nov, Acquired absence of right leg below knee Z89.511 [address] [address] [place] [address] [id number] Nov, [place] [address] [place] [address] [id number] Nov, [place] [address] [place] [address] [id number] Sep, [place] [address] [place] [address] [id number] Sep, Diabetes type 2, uncontrolled E11.65 ; Leg wound, left, initial encounter S81.802A and Erectile disorder due to medical condition in male N52.1 [address] [place] [address] [id number] Sep, [place] [address] [place] [address] [id number] Jul, [place] [address] [place] [address] [id number] Jul, [place] [address] [place] [address] [id number] Jul, [place] [address] [place] [address] [id number] Jul, 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 ; Varicose vein of leg I83.93 ; Diabetes type 2, uncontrolled E11.65 and Chronic pain G89.29 [place] [address] [place] [address] [id number] Jul, [place] [address] [place] [address] [id number] Jul, Diabetes with neurological manifestations, type II or unspecified type, not stated as uncontrolled 250.60 [place] [id number] Jul, [facility] [address] [id number] [id number] Jul, [facility] [address] [place] [address] [id number] Jun, Diabetes type 2, uncontrolled E11.65 [facility] [address] [place] [address] [id number] Jun, Pain in right knee M25.561 ; Pain in left knee M25.562 ; Other chronic pain G89.29 and Primary osteoarthritis of both knees M17.0 [facility] [address] [place] [address] [id number] Apr, Diabetes type 2, uncontrolled E11.65 ; Puncture wound of foot, left, initial encounter S91.332A and Encounter for immunization Z23 [address] [place] [address] [id number] 15 Apr, 2015 [address] [id number] [place] [address] [id number] Apr, [facility] [address] [id number] [id number] Feb, Acquired absence of right leg below knee Z89.511 [place] [id number] [id number] Feb, Acquired absence of right leg below knee Z89.511 [address] [id number] [id number] Feb, Diabetes type 2, uncontrolled E11.65 and Acquired absence of right leg below knee Z89.511 [facility] [address] [facility] [id number] [id number] Jan, [place] [id number] [id number] Jan, [facility] [id number], [place] [address] Jan, [facility] [address] [id number] [id number] Jan, Don [facility] [id number] [id number] Dec, [facility] [id number] [place] [address] [id number] Dec, Diabetes with neurological manifestations, type II or unspecified type, not stated as uncontrolled 250.60 and Open wound of foot except toe(s) alone, without mention of complication 892.0 [facility] [id number] [place] [address] [id number] Dec, [facility] [place] [id number] [place] [address] [id number] Nov, [facility] [id number] [place] [address] [id number] Nov, Cellulitis of foot 682.7 [facility] [id number] [place] [address] [id number] Oct, [facility] [id number] [place] [address] [id number] Oct, Corneal abrasion 918.1 [facility] [id number] [place] [address] [id number] Oct, [facility] [id number] [place] [address] [id number] Oct, [facility] [id number] [place] [address] [id number] August, [facility] [id number] [place] [address] [id number] August, [facility] [id number] [place] [address] [id number] August, [facility] [id number] [place] [address] [id number] August, [facility] [id number] [place] [address] [id number] August, Diabetes mellitus without mention of complication, type II or unspecified type, not stated as uncontrolled 250.00 [facility] [id number] [place] [address] Jul, [facility] [address] [address] Jul, [facility] [address] [id number] [place] [address] Apr, [facility] [place] [facility] [address] [id number] [place] [address] Apr, [facility] [place] [facility] [address] [id number] [place] [address] Mar, [facility] [place] [facility] [address] [id number] [place] [address] Mar, [facility] [place] [facility] [address] [id number] [place] [address] Mar, [facility] [place] [facility] [address] [facility] [id number] [place] [address] Mar, [facility] [place] [facility] [address] [facility] [id number] [place] [address] Mar, [facility] [place] [facility] [address] [id number] [place] [address] Mar, [facility] [place] [facility] [address] [facility] [id number], [place] [address] Mar, [facility] [place] [facility] [address] [facility] [id number] [place] [address] Mar, [facility] [place] [facility] [address] [facility] [id number], [place] [address] Mar, [facility] [place] [facility] [address] [id number], [place] [address] Mar, [facility] [place] [facility] [address] [id number] [place] [address] Mar, [facility] [place] [facility] [address] [facility] [id number], [place] [address] Mar, [facility] [place] [facility] [address] [facility] [id number], [place] [address] Mar, [facility] [place] [facility] [address] [id number] [id number] Mar, [facility] [address] [id number] [place] [address] Jan, [facility] [place] [address] [facility] [id number] [place] [id number] Jan, [facility] [place] [facility] [address] [facility] [id number] [place] [address] Jan, [facility] [place] [facility] [address] [facility] [id number] [place] [address] Jan, [facility] [place] [facility] [address] [id number] [place] [address] Jan, [facility] [address] [facility] [id number] [place] [id number] Jan, [facility] [place] [facility] [address] [facility] [id number] [place] [address] Dec, [facility] [address] [facility] [id number], [place] [id number] Nov, [facility] [place] [facility] [address] [facility] [id number] [place] [address] Nov, [facility] [address] [facility] [id number][place] [address] Oct, [facility] [place] [facility] [address] [facility] [id number], [place] [address] Oct, [facility] [address] [facility] [id number][place] [address] Oct, [facility] [place] [facility] [address] [facility] [id number] [place] [address] Oct, [facility] [place] [facility] [address] [facility] [id number] [place] [address] August, [facility] [place] [facility] [address] [facility] [id number] [place] [address] August, [facility] [place] [facility] [address] [facility] [id number] [place] [address] August, [facility] [place] [facility] [address] [facility] [id number], [place] [address] August, [facility] [address] [facility] [id number] [place] [id number] Jul, [facility] [place] [facility] [address] [facility] [id number], [place] [address] Jul, [facility] [address] [facility] [id number] [place] [address] Jun, [facility] [place] [facility] [address] [facility] [id number], [place] [address] Jun, [facility] [address] [facility] [id number], [place] [address] Jun, [facility] [place] [facility] [address], [place] [address] Jun, [facility] [address] [id number], [place] [address] Jun, [facility] [place] [facility] [address], [place] [address] Jun, [facility] [address] [facility] [id number], [place] [address] Jun, [facility] [place] [facility] [address], [place] [address] Jun, [facility] [address] [facility] [id number], [place] [address]16[address] May, [facility] [place] [facility] [id number], [place] [address] May, [facility] [address] [facility] [id number][place] [id number] May, [facility] [place] [facility] [address], [place] [address] May, [facility] [place] [facility] [address] [id number], [place] [address] May, [facility] [place] [facility] [address], [place] [address] May, [facility] [address] [facility] [id number], [place] [address] May, [facility] [address], [place] [address] May, [facility] [address] [facility] [id number], [place] [address] May, [facility] [address], [place] [address] May, [facility] [address], [place] [address] Apr, [facility] [address], [place] [address] Apr, [facility] [id number][place] [id number] Apr, [facility] [id number], [place] [address] Apr, [facility] [address] [id number] [id number] Sep, [facility] [id number], [place] [address] Sep, [facility] [address] [id number][place] [id number] Sep, [facility] [address] [id number][place] [id number] Sep, [facility] [address] [facility] [id number], [place] [address] Jun, [facility] [address] [id number] [place] [id number] Nov, [facility] [address] [id number][place] [id number] Nov, [facility] [address] [id number][place] [id number] Nov, [facility] [address] [id number][place] [id number] Nov, [facility] [id number][place] [id number] Nov, [facility] [id number][place] [id number] Nov, [facility] [address] [id number][place] [id number] Nov, [facility] [address] [id number] [place] [id number] Nov, [facility] [address] [id number] [place] [id number] Nov, [facility] [id number] [place] [id number] Sep, [facility] [id number] [place] [id number] Sep, [facility] [id number] [place] [id number] Sep, [facility] [id number] [place] [id number] Sep, [facility] [id number] [place] [id number] August, [facility] [id number] [place] [id number] August, [facility] [id number] [place] [id number] August, [facility] [id number] [id number] August, [facility] [id number], [place] [address] Sep, IMMUNIZATIONS No Known Immunizations SOCIAL HISTORY Never Assessed REASON FOR VISIT BS ck PLAN OF CARE VITAL SIGNS MEDICATIONS Unknown [...] 11/2014 Surgical History amputation right mid-calf/foot at [facility] 01/2015 Hospitalization History [facility] post op infection to right foot, amputations to mid-calf 01/2015 Hospitalization History [facility] post-op 7 days, discharges with home health -02/2015 Hospitalization History [facility] ER visit for sore on right stump 04/2016 Hospitalization History [facility] wound on left lower leg, culture +for Strep G 12/2016
--- OUTSIDE RECORDS SUMMARY | 2018-10-31 17:31 | XMS REPORT ---
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 Active 036951960 Problem Erectile dysfunction, unspecified erectile dysfunction type N52.9 Active 929247400 Problem Venous insufficiency (chronic) (peripheral) I87.2 Active 52326417 Problem Major depressive disorder in partial remission, unspecified whether recurrent F32.4 Active 85080542 Problem DM 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 Active 71021329 Problem Anaphylactic reaction to bee sting, accidental or unintentional, initial encounter T63.441A Active 281398083 Problem Diabetes type 2, uncontrolled E11.65 Active 428083178 Problem 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 Active 477641306 Problem Skin ulcer of left lower leg, limited to breakdown of skin L97.921 Active 21646926 Problem Other chronic pain G89.29 Active 58594533 Problem Varicose veins of left lower extremity with ulcer other part of lower leg I83.028 Active 33681923 Problem Essential hypertension I10 Active 70243579 Problem Mild intermittent asthma without complication J45.20 Active 928587671 Problem Acquired absence of right leg below knee Z89.511 Active 136969167 Problem Phantom pain R52 Active 261337117 Problem Acute pain of left shoulder M25.512 Active 61730856 Problem Reflux esophagitis K21.0 Active 843491015 Problem Obstructive sleep apnea syndrome G47.33 Active 58269750 Problem Hammertoe of left foot M20.42 Active 254128015 Problem Cellulitis of left lower extremity L03.116 Active 585930118 Problem Wheelchair bound Z99.3 Active 031087676 ALLERGIES Substance Reaction Event Type Date Status Victoza vomiting Drug Allergy Oct, Active Lopid vomiting Drug Allergy Oct, Active Cleocin vomiting Drug Allergy Oct, Active Cephalexin rash Drug Allergy Oct, Active ENCOUNTERS Encounter Location Date Diagnosis [id number] [place] [address] [id number] Jan, [facility] [id number] [place] [address] Dec, [address] [id number] [place] [address] [id number] Dec, Diabetes type 2, uncontrolled E11.65 ; Essential hypertension I10 ; Reflux esophagitis K21.0 ; Major depressive disorder in partial remission, unspecified whether recurrent F32.4 ; Phantom pain R52 and BMI 40.0-44.9, adult Z68.41 [address] [id number] [place] [address] [id number] Nov, Phantom pain R52 [address] [id number] Nov, Diabetes type 2, uncontrolled E11.65 and BMI 40.0-44.9, adult Z68.[address] [id number] Oct, Anaphylactic reaction to bee sting, accidental or unintentional, initial encounter T63.441A ; Pain in right shoulder M25.511 and Other chronic pain G89.29 [address] [place] [address] [id number] Oct, Diabetes type 2, uncontrolled E11.65 [address] [place] [id number] [place] [address] [id number] Oct, Diabetes type 2, uncontrolled E11.65 and Cellulitis of left lower extremity L03.116 [address] [place] [address] [place] [address] [id number] Oct, Phantom pain R52 [facility] [address] [place] [address] Sep, Onychomycosis B35.1 ; Impaired circulation of left leg I99.9 and DM 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 [facility] [id number] [id number] Sep, BMI 40.0-44.9, adult Z68.41 ; Skin ulcer of left lower leg, limited to breakdown of skin L97.921 ; Acute pain of left shoulder M25.512 ; DM 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 ; Mild intermittent asthma without complication J45.20 and Phantom pain R52 [facility] [id number] [place] [address] [id number] Sep, Phantom pain R52 [facility] [id number] [place] [address] [id number] August, Phantom pain R52 [address] [id number] August, Acquired absence of right leg below knee Z89.511 [address] [place] [place] [address] [id number] August, Acquired absence of right leg below knee Z89.511 [address] [id number] [place] [address] August, Diabetes type 2, uncontrolled E11.65 [address] [address] [address] August, [address] [address] [address] August, [address] [place] [id number] [place] [address] [id number] August, BMI 40.0-44.9, adult Z68.41 ; 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 and Acquired absence of right leg below knee Z89.[address] [facility] [address] [id number] [address] August, [facility] [address] [id number] [id number] Jul, Skin ulcer of left lower leg, limited to breakdown of skin L97.921 [id number] [id number] Jul, [facility] [address] [place] [address] [id number] Jul, BMI 40.0-44.9, adult Z68.41 ; Skin ulcer of left lower leg, limited to breakdown of skin L97.921 and DM 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 [place] [id number] [place] [address] Jul, [facility] [id number] [place] [address] [id number] Jul, [address] [address] [place] [address] [id number] Jul, [address] [address] [place] [address] [id number] Jun, Erectile dysfunction, unspecified erectile dysfunction type N52.9 [place] [id number] [place] [address] Jun, [address] [address] [place] [address] [id number] Jun, BMI 40.0-44.9, adult Z68.41 ; Diabetes type 2, uncontrolled E11.65 ; Phantom pain R52 ; Subluxation of right shoulder joint, sequela S43.001S and Erectile dysfunction, unspecified erectile dysfunction type N52.9 [place] [id number] [place] [address] Jun, DM 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 ; Onychomycosis B35.1 and Hammertoe of left foot M20.42 [place] [id number] [place] [address] Jun, [address] [id number] [place] [address] [id number] Jun, DM 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 [address] [place] [facility] [id number] [id number] Jun, DM 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 [address] [address] [place] [address] [id number] May, DM 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 ; Venous insufficiency (chronic) (peripheral) I87.2 ; 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 ; Essential hypertension I10 and Phantom pain R52 [place] [id number] [place] [address] [id number] Apr, Diabetes type 2, uncontrolled E11.65 ; Acquired absence of right leg below knee Z89.511 ; Essential hypertension I10 ; Reflux esophagitis K21.0 and Phantom pain R52 [address] [address] [place] [address] [id number] Apr, BMI 40.0-44.9, adult Z68.41 and Wheelchair bound Z99.3 [address] [address] [place] [address] [id number] Mar, [address] [id number] Mar, BMI 40.0-44.9, adult Z68.41 ; Diabetes type 2, uncontrolled E11.65 ; Mild intermittent asthma without complication J45.20 ; Phantom pain R52 ; Reflux esophagitis K21.0 and Essential hypertension I10 [address] [place] [address] [id number] Feb, Phantom pain R52 [address] [place] [address] [id number] Feb, Phantom pain R52 and Acute pain of left shoulder M25.512 [place] [id number] [place] [address] [id number] Jan, Phantom pain R52 [address] [address] [place] [address] [id number] Jan, DM 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 ; Cellulitis of left lower extremity L03.116 ; Obstructive sleep apnea syndrome G47.33 ; Thyroid disorder screen Z13.29 and Lipid screening Z13.[address] [place] [address] [id number] Jan, [address] [address] [place] [address] [id number] Dec, DM 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 ; Phantom pain R52 and Mild intermittent asthma without complication J45.20 [facility] [id number] [place] [address] [id number] Dec, Wound of left lower extremity, subsequent encounter S81.802D [facility] [id number] [place] [address] [id number] Nov, [facility] [address] [address] Nov, [facility] [id number] [place] [address] [id number] Nov, DM 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 ; Mild intermittent asthma without complication J45.20 ; Essential hypertension I10 and Phantom pain R52 [facility] [id number] [place] [address] [id number] Oct, Phantom pain R52 [facility] [id number] [place] [address] [id number] Sep, Phantom pain R52 ; DM 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 and Essential hypertension I10 [facility] [id number] [place] [address] [id number] August, DM 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 ; Phantom pain R52 and Essential hypertension I10 [facility] [id number] [place] [address] [id number] Jul, DM 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 and Phantom pain R52 [facility] [id number] [place] [address] Jun, Onychomycosis B35.1 and DM 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 [facility] [id number] [place] [address] [id number] Jun, DM 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 ; Phantom pain R52 ; Essential hypertension I10 and Diabetes with neurological manifestations, type II or unspecified type, not stated as uncontrolled 250.60 [facility] [id number] [place] [address] [id number] Apr, DM 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 ; Phantom pain R52 ; Essential hypertension I10 and Mild intermittent asthma without complication J45.20 [facility] [id number] [place] [address] [id number] Apr, Need for follow up care after discharge from healthcare facility Z92.89 and Wound of right lower extremity, subsequent encounter S81.801D [facility] [id number] [place] [address] [id number] Mar, Phantom pain R52 ; DM 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 and Essential hypertension I10 [address] [address] [place] [address] [id number] Feb, DM 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 ; Phantom pain R52 and Essential hypertension I10 [address] [address] [place] [address] [id number] Jan, Phantom pain R52 and DM 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 [address] [place] [place] [address] [id number] Dec, [address] [address] [place] [address] [id number] Dec, DM 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 ; Phantom pain R52 ; Mild intermittent asthma without complication J45.20 and Essential hypertension I10 [facility] [address] [id number] [address] Dec, Onychomycosis B35.1 ; Xerosis of skin L85.3 and DM 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 [address] [id number] Nov, Acquired absence of right leg below knee Z89.511 [address] [place] [address] [id number] Nov, [address] [address] [place] [address] [id number] Nov, [facility] [id number] [place] [address] [id number] Sep, [address] [address] [place] [address] [id number] Sep, Diabetes type 2, uncontrolled E11.65 ; Leg wound, left, initial encounter S81.802A and Erectile disorder due to medical condition in male N52.1 [address] [address] [place] [address] [id number] 08 Sep, 2015 [facility] [address] [id number] Jul, [place] [address] [place] [address] [id number] 16 Jul, [address] [id number] Jul, [address] [id number] Jul, 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 ; Varicose vein of leg I83.93 ; Diabetes type 2, uncontrolled E11.65 and Chronic pain G89.29 [address] [address] [place] [address] [id number] Jul, [address] [id number] Jul, Diabetes with neurological manifestations, type II or unspecified type, not stated as uncontrolled 250.[address] [id number] Jul, [address] [id number] Jul, [address] [address] [place] [address] [id number] Jun, Diabetes type 2, uncontrolled E11.65 [address] [address] [place] [address] [id number] Jun, Pain in right knee M25.561 ; Pain in left knee M25.562 ; Other chronic pain G89.29 and Primary osteoarthritis of both knees M17.[address] [id number] Apr, Diabetes type 2, uncontrolled E11.65 ; Puncture wound of foot, left, initial encounter S91.332A and Encounter for immunization Z23 [address] [address] [place] [address] [id number] Apr, [facility] [id number] [place] [address] [id number] Apr, [facility] [id number] [place] [address] [id number] Feb, Acquired absence of right leg below knee Z89.511 [facility] [id number] [place] [address] [id number] Feb, Acquired absence of right leg below knee Z89.511 [facility] [id number] [place] [address] [id number] Feb, Diabetes type 2, uncontrolled E11.65 and Acquired absence of right leg below knee Z89.511 [facility] [id number] [place] [address] [id number] Jan, [place] [id number] [place] [address] [id number] Jan, [facility] [id number] [place] [address] Jan, [facility] [id number] [place] [address] [id number] Jan, [facility] [id number] [place] [address] [id number] Dec, [address] [place] [address] [id number] Dec, Diabetes with neurological manifestations, type II or unspecified type, not stated as uncontrolled 250.60 and Open wound of foot except toe(s) alone, without mention of complication 892.0 [facility] [id number] [id number] Dec, [place] [id number] [place] [address] [id number] Nov, [facility] [address] [place] [address] [id number] Nov, Cellulitis of foot 682.[address] [place] [address] [id number] Oct, [place] [id number] [id number] Oct, Corneal abrasion 918.1 [facility] [address] [id number] [id number] Oct, [facility] [address] [id number][place] [id number] Oct, [facility] [place] [address] [id number] [place] [id number] August, [facility] [address] [id number][place] [id number] August, [facility] [place] [address] [id number][place] [id number] August, [facility] [place] [id number], [place] [id number] August, [facility] [place] [address] [id number] [id number] August, Diabetes mellitus without mention of complication, type II or unspecified type, not stated as uncontrolled 250.00 [facility] [address] [id number] [address] Jul, [facility] [id number] [place] [address] Jul, [facility] [id number] [place] [address] Apr, [facility] [address], [place] [address] Apr, [facility] [id number], [place] [address] Mar, [facility] [id number] [place] [address] Mar, [facility] [id number] [place] [address] Mar, [facility] [id number], [place] [address] Mar, [facility] [place] [facility] [address] [id number], [place] [address] Mar, [facility] [address] [id number], [place] [address] Mar, [facility] [place] [address] [facility] [id number][place] [id number] Mar, [facility] [address] [id number], [place] [address] Mar, [facility] [place] [facility] [address] [id number] [place] [address] Mar, [facility] [place] [facility] [address] [id number] [place] [address] Mar, [facility] [place] [facility] [address] [facility] [id number], [place] [address] Mar, [facility] [address] [facility] [id number], [place] [address] Mar, [facility] [address] [facility] [id number], [place] [address] Mar, [facility] [place] [address] [facility] [id number], [place] [id number] Mar, [facility] [address] [facility] [id number], [place] [address] Jan, [facility] [place] [address] [facility] [id number][place] [id number] Jan, [facility] [place] [facility] [address] [id number], [place] [address] Jan, [facility] [place] [facility] [address] [facility] [id number], [place] [address] Jan, [facility] [place] [facility] [address] [facility] [id number], [place] [address] Jan, [facility] [address] [facility] [id number][place] [id number] Jan, [facility] [place] [facility] [address] [id number] [place] [address] Dec, [facility] [address] [id number] [place] [id number] Nov, [facility] [place] [facility] [address] [id number] [place] [address] Nov, [facility] [address] [id number] [place] [id number] Oct, [facility] [place] [facility] [address] [id number] [place] [address] Oct, [facility] [address] [id number] [place] [id number] Oct, [facility] [place] [facility] [address] [id number] [place] [address] Oct, [facility] [place] [facility] [address] [facility] [id number] [place] [address] August, [facility] [place] [facility] [address] [facility] [id number] [place] [address] August, [facility] [place] [facility] [address] [id number] [place] [address] August, [facility] [place] [facility] [address] [facility] [id number] [place] [address] August, [facility] [address] [facility] [id number] [place] [id number] Jul, [facility] [place] [facility] [address] [id number], [place] [address] Jul, [facility] [address] [id number] [place] [id number] Jun, [facility] [place] [facility] [address] [id number] [place] [address] Jun, [facility] [address] [id number] [place] [id number] Jun, [facility] [place] [facility] [address] [id number] [place] [address] Jun, [facility] [address] [id number] [place] [id number] Jun, [facility] [address] [id number] [place] [address] Jun, [facility] [address] [id number] [place] [id number] Jun, [facility] [address] [facility] [id number], [place] [address] Jun, [facility] [address] [facility] [id number] [place] [id number] May, [facility] [place] [facility] [address] [facility] [id number], [place] [address] May, [facility] [address] [facility] [id number] [place] [address] May, [facility] [place] [facility] [address], [place] [address] May, [facility] [place] [facility] [id number], [place] [address] May, [facility] [place] [facility] [address] [facility] [id number], [place] [address] May, [facility] [address] [facility] [id number], [place] [address] May, [facility] [place] [facility] [address] [facility] [id number], [place] [address] May, [facility] [address] [facility] [id number], [place] [id number] May, [facility] [place] [facility] [address] [facility] [id number], [place] [address] May, [facility] [place] [facility] [address] [facility] [id number], [place] [address] Apr, [facility] [place] [facility] [address] [facility] [id number], [place] [address] Apr, [facility] [address] [facility] [id number] [place] [id number] Apr, [facility] [address] [id number], [place] [address] Apr, [facility] [address] [id number] [place] [id number] Sep, [facility] [address] [facility] [id number], [place] [address] Sep, [facility] [address] [id number] [place] [id number] Sep, [facility] [address] [id number] [place] [id number] Sep, [facility] [address] [facility] [id number], [place] [address] Jun, [facility] [address] [id number] [place] [id number] Nov, [facility] [address] [id number] [place] [id number] Nov, [facility] [address] [id number] [place] [id number] Nov, [facility] [address] [id number] [place] [id number] Nov, [facility] [address] [id number] [place] [id number] Nov, [facility] [address] [id number] [place] [id number] Nov, [facility] [address] [id number] [place] [id number] Nov, [facility] [address] [id number] [place] [id number] Nov, [facility] [address] [id number] [place] [id number] Nov, [facility] [address] [id number] [place] [id number] Sep, [facility] [address] [id number] [place] [id number] Sep, [facility] [address] [id number] [place] [id number] Sep, [facility] [address] [facility] [id number][place] [id number] Sep, [facility] [address] [id number] [id number] August, [facility] [address] [facility] [id number][place] [id number] August, [facility] [address] [id number][place] [id number] August, [facility] [address] [id number][place] [id number] August, [facility] [address] [facility] [id number], [place] [address] Sep, IMMUNIZATIONS No Known Immunizations SOCIAL HISTORY Never Assessed REASON FOR VISIT Diabetes visit and A1c, Pt has new wound above left ankle that is draining Jody cierra MARIE PLAN OF CARE Activity Details Follow Up 4 Weeks Reason: VITAL SIGNS Height 72 in 2017-10-18 Weight 304.1 lbs 2017-10-18 Temperature 97.6 degrees Fahrenheit 2017-10-18 Heart Rate 88 bpm 2017-10-18 Respiratory Rate 16 2017-10-18 BMI 41.24 kg/m2 2017-10-18 Blood pressure systolic 140 mmHg 2017-10-18 Blood pressure diastolic 86 mmHg 2017-10-18 MEDICATIONS Medication Instructions Dosage Frequency Start Date End Date Duration Status Gemfibrozil 600 MG Orally twice a day take 1 tablet 12h Active Tresiba FlexTouch 200 UNIT/ML Subcutaneous at bedtime 150 units Sep, Active Singulair 10 mg Orally Once a day 1 tablet in the evening 24h Active Lancets - as directed Mar, Active Blood Pressure Kit ... as directed Mar, Active Gabapentin 600 MG Orally Three times a day 1 capsule 1 tab qhs x 5 d then bid x 5 d then tid 8h Dec, Active Diovan HCT 160-12.5 MG Orally Once a day take 1 tablet 24h Active Walker - as directed Apr, Active Sildenafil Citrate 20 mg Orally do not take more than 1-2 tabs in a 24 hour period 1-2 tablets prn for sexual activity Jun, Active Ibuprofen 800 MG Orally Three times a day 1 tablet with food or milk as needed 8h Feb, Active Omeprazole 40 MG Orally Once a day 1 capsule 24h 30 days Active BD Pen Needle Nedra U/F 32G X 4 MM as directed 8h Sep, Active Silvadene 1 % Externally Once a day 1 application to affected area 24h Jul, Active Metformin HCl 1000 MG Orally Twice a day 1 tablet with meals 12h Active Blood Glucose Test Strip - as directed 8h Dec, 30 days Active Knee Compression Sleeve/L/XL - sleeve and liner August, Active Zoloft 50 mg Orally Once a day 1 tablet 24h Active Farxiga 5 mg Orally Once a day in the morning 1 tablet Active Hydrocodone-Acetaminophen 7.5-325 MG Orally every 6 hrs PRN must last 28 days 1 tablet as needed Oct, 0 days Active Pioglitazone HCl 30 MG DX- E11.65 Once a day 1 tablet 24h Jun, Active BD Insulin Syringe 30G X 1/2 subcutaneously 5 times daily as directed Dec, Active Potassium Chloride 20 MEQ Orally Once a day 1 tablet 24h Dec, Active Leg Prosthesis N/A DON: 99 as directed Right below knee definitive Nov, Active ProAir HFA 108 (90 Base) MCG/ACT Inhalation every 4-6 hours as needed 2 puffs Jul, Active Amlodipine Besylate 10 mg Orally Once a day 1 tablet 24h Active NovoLog 100 UNIT/ML Subcutaneous 3 times a day, E11.65 60 units Jun, Active Wheelchair - as directed Apr, lifetime Active RESULTS Name Result Date Reference Range A1C (IN HOUSE) 2017-10-18 A1C IN HOUSE 11.3 4.3 - 5.6 % Previous A1c 11.0 Lot [id number] Exp date 06/2019 PROCEDURES Procedure Date Ordered Result Body Site GLYCATED HEMOGLOBIN TEST October 18, 2017 [facility] VISIT ESTABLISHED PATIENT October 18, 2017 INSTRUCTIONS MEDICATIONS ADMINISTERED No Known Medications [...] 11/2014 Surgical History amputation right mid-calf/foot at [facility] 01/2015 Hospitalization History [facility] post op infection to right foot, amputations to mid-calf 01/2015 Hospitalization History [facility] In post-op 7 days, discharges with home health -02/2015 Hospitalization History [facility] visit for sore on right stump 04/2016 Hospitalization History [facility] wound on left lower leg, culture +for Strep G 12/2016
--- OUTSIDE RECORDS SUMMARY | 2018-10-31 17:32 | XMS REPORT ---
Author Author JERR[facility]Z 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 Active 943907026 Problem Erectile dysfunction, unspecified erectile dysfunction type N52.9 Active 438285119 Problem Venous insufficiency (chronic) (peripheral) I87.2 Active 31763695 Problem Major depressive disorder in partial remission, unspecified whether recurrent F32.4 Active 03317291 Problem DM 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 Active 19028444 Problem Anaphylactic reaction to bee sting, accidental or unintentional, initial encounter T63.441A Active 178695268 Problem Diabetes type 2, uncontrolled E11.65 Active 714083369 Problem 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 Active 349130457 Problem Skin ulcer of left lower leg, limited to breakdown of skin L97.921 Active 21626142 Problem Other chronic pain G89.29 Active 92710299 Problem Varicose veins of left lower extremity with ulcer other part of lower leg I83.028 Active 08799826 Problem Essential hypertension I10 Active 44976399 Problem Mild intermittent asthma without complication J45.20 Active 608361658 Problem Acquired absence of right leg below knee Z89.511 Active 310820865 Problem Phantom pain R52 Active 745776685 Problem Acute pain of left shoulder M25.512 Active 42325983 Problem Reflux esophagitis K21.0 Active 728550004 Problem Obstructive sleep apnea syndrome G47.33 Active 13754600 Problem Hammertoe of left foot M20.42 Active 662355487 Problem Cellulitis of left lower extremity L03.116 Active 494215182 Problem Wheelchair bound Z99.3 Active 080428344 ALLERGIES Substance Reaction Event Type Date Status Victoza vomiting Drug Allergy Nov, Active Lopid vomiting Drug Allergy Nov, Active Cleocin vomiting Drug Allergy Nov, Active Cephalexin rash Drug Allergy Nov, Active ENCOUNTERS Encounter Location Date Diagnosis [id number] [place] [address] [id number] Jan, [facility] [id number] [place] [address] Dec, [place] [id number] [place] [address] [id number] Dec, Diabetes type 2, uncontrolled E11.65 ; Essential hypertension I10 ; Reflux esophagitis K21.0 ; Major depressive disorder in partial remission, unspecified whether recurrent F32.4 ; Phantom pain R52 and BMI 40.0-44.9, adult Z68.41 [place] [id number] [place] [address] [id number] Nov, Phantom pain R52 [address] [id number] Nov, Diabetes type 2, uncontrolled E11.65 and BMI 40.0-44.9, adult Z68.[address] [id number] Oct, Anaphylactic reaction to bee sting, accidental or unintentional, initial encounter T63.441A ; Pain in right shoulder M25.511 and Other chronic pain G89.29 [address] [place] [address] [id number] Oct, Diabetes type 2, uncontrolled E11.65 [place] [id number] [place] [address] [id number] Oct, Diabetes type 2, uncontrolled E11.65 and Cellulitis of left lower extremity L03.[address] [id number] Oct, Phantom pain R52 [facility] [address] [place] [id number] 15 Sep, 2017 Onychomycosis B35.1 ; Impaired circulation of left leg I99.9 and DM 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 [facility] [id number] [id number] Sep, BMI 40.0-44.9, adult Z68.41 ; Skin ulcer of left lower leg, limited to breakdown of skin L97.921 ; Acute pain of left shoulder M25.512 ; DM 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 ; Mild intermittent asthma without complication J45.20 and Phantom pain R52 [facility] [id number] [place] [address] [id number] Sep, Phantom pain R52 [facility] [id number] [place] [address] [id number] August, Phantom pain R52 [address] [id number] August, Acquired absence of right leg below knee Z89.511 [address] [id number] [place] [address] [id number] August, Acquired absence of right leg below knee Z89.511 [place] [id number] [place] [address] August, Diabetes type 2, uncontrolled E11.65 [place] [address] [address] August, [place] [address] [address] August, [place] [id number] [place] [address] [id number] August, BMI 40.0-44.9, adult Z68.41 ; 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 and Acquired absence of right leg below knee Z89.511 [facility] [address] [id number] [place] [address] August, [facility] [address] [id number] [id number] Jul, Skin ulcer of left lower leg, limited to breakdown of skin L97.921 [place] [id number] [id number] Jul, [facility] [address] [place] [address] [id number] Jul, BMI 40.0-44.9, adult Z68.41 ; Skin ulcer of left lower leg, limited to breakdown of skin L97.921 and DM 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 [place] [id number] [place] [address] Jul, [facility] [id number] [place] [address] [id number] Jul, [place] [id number] [place] [address] [id number] Jul, [address] [id number] [place] [address] [id number] Jun, Erectile dysfunction, unspecified erectile dysfunction type N52.9 [place] [id number] [place] [phone] Jun, [place] [id number] [place] [address] [id number] Jun, BMI 40.0-44.9, adult Z68.41 ; Diabetes type 2, uncontrolled E11.65 ; Phantom pain R52 ; Subluxation of right shoulder joint, sequela S43.001S and Erectile dysfunction, unspecified erectile dysfunction type N52.9 [place] [id number] [place] [address] Jun, DM 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 ; Onychomycosis B35.1 and Hammertoe of left foot M20.42 [place] [id number] [place] [phone] Jun, [address] [id number] [place] [address] [id number] Jun, DM 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 [place] [address] [facility] [id number] [id number] Jun, DM 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 [place] [id number] [place] [address] [id number] May, DM 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 ; Venous insufficiency (chronic) (peripheral) I87.2 ; 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 ; Essential hypertension I10 and Phantom pain R52 [place] [id number] [place] [address] [id number] Apr, Diabetes type 2, uncontrolled E11.65 ; Acquired absence of right leg below knee Z89.511 ; Essential hypertension I10 ; Reflux esophagitis K21.0 and Phantom pain R52 [place] [id number] [place] [address] [id number] Apr, BMI 40.0-44.9, adult Z68.41 and Wheelchair bound Z99.3 [place] [id number] [place] [address] [id number] Mar, [address] [id number] Mar, BMI 40.0-44.9, adult Z68.41 ; Diabetes type 2, uncontrolled E11.65 ; Mild intermittent asthma without complication J45.20 ; Phantom pain R52 ; Reflux esophagitis K21.0 and Essential hypertension I10 [address] [place] [address] [id number] Feb, Phantom pain R52 [address] [place] [address] [id number] Feb, Phantom pain R52 and Acute pain of left shoulder M25.512 [place] [id number] [place] [address] [id number] Jan, Phantom pain R52 [place] [id number] [place] [address] [id number] Jan, DM 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 ; Cellulitis of left lower extremity L03.116 ; Obstructive sleep apnea syndrome G47.33 ; Thyroid disorder screen Z13.29 and Lipid screening Z13.220 [address] [place] [address] [id number] Jan, [place] [id number] [place] [address] [id number] Dec, DM 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 ; Phantom pain R52 and Mild intermittent asthma without complication J45.20 [facility] [id number] [place] [address] [id number] Dec, Wound of left lower extremity, subsequent encounter S81.802D [facility] [id number] [place] [address] [id number] Nov, [facility] [address] [address] Nov, [facility] [id number] [place] [address] [id number] Nov, DM 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 ; Mild intermittent asthma without complication J45.20 ; Essential hypertension I10 and Phantom pain R52 [facility] [id number] [place] [address] [id number] Oct, Phantom pain R52 [facility] [id number] [place] [address] [id number] Sep, Phantom pain R52 ; DM 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 and Essential hypertension I10 [facility] [id number] [place] [address] [id number] August, DM 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 ; Phantom pain R52 and Essential hypertension I10 [facility] [id number] [place] [address] [id number] Jul, DM 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 and Phantom pain R52 [facility] [id number] [place] [phone] Jun, Onychomycosis B35.1 and DM 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 [facility] [id number] [place] [address] [id number] Jun, DM 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 ; Phantom pain R52 ; Essential hypertension I10 and Diabetes with neurological manifestations, type II or unspecified type, not stated as uncontrolled 250.60 [facility] [id number] [place] [address] [id number] Apr, DM 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 ; Phantom pain R52 ; Essential hypertension I10 and Mild intermittent asthma without complication J45.20 [facility] [id number] [place] [address] [id number] Apr, Need for follow up care after discharge from healthcare facility Z92.89 and Wound of right lower extremity, subsequent encounter S81.801D [facility] [id number] [place] [address] [id number] Mar, Phantom pain R52 ; DM 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 and Essential hypertension I10 [place] [id number] [place] [address] [id number] Feb, DM 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 ; Phantom pain R52 and Essential hypertension I10 [address] [id number] [place] [address] [id number] Jan, Phantom pain R52 and DM 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 [address] [id number] [place] [address] [id number] Dec, [place] [id number] [place] [address] [id number] Dec, DM 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 ; Phantom pain R52 ; Mild intermittent asthma without complication J45.20 and Essential hypertension I10 [facility] [address] [id number] [address] Dec, Onychomycosis B35.1 ; Xerosis of skin L85.3 and DM 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 [address] [id number] Nov, Acquired absence of right leg below knee Z89.511 [address] [id number] [place] [address] [id number] Nov, [place] [address] [place] [address] [id number] Nov, [facility] [id number] [place] [address] [id number] Sep, [place] [id number] [place] [address] [id number] Sep, Diabetes type 2, uncontrolled E11.65 ; Leg wound, left, initial encounter S81.802A and Erectile disorder due to medical condition in male N52.1 [place] [id number] [place] [address] [id number] Sep, 2015 [facility] [address] [id number] Jul, [place] [id number] [place] [address] [id number] Jul, [address] [id number] Jul, [address] [id number] Jul, 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 ; Varicose vein of leg I83.93 ; Diabetes type 2, uncontrolled E11.65 and Chronic pain G89.29 [address] [id number] [place] [address] [id number] Jul, [address] [id number] Jul, Diabetes with neurological manifestations, type II or unspecified type, not stated as uncontrolled 250.[address] [id number] Jul, [address] [id number] Jul, [place] [address] [place] [address] [id number] Jun, Diabetes type 2, uncontrolled E11.65 [address] [address] [place] [address] [id number] Jun, Pain in right knee M25.561 ; Pain in left knee M25.562 ; Other chronic pain G89.29 and Primary osteoarthritis of both knees M17.[address] [id number] Apr, Diabetes type 2, uncontrolled E11.65 ; Puncture wound of foot, left, initial encounter S91.332A and Encounter for immunization Z23 [address] [id number] [place] [address] [id number] Apr, [facility] [id number] [place] [address] [id number] Apr, [facility] [id number] [place] [address] [id number] Feb, Acquired absence of right leg below knee Z89.511 [facility] [id number] [place] [address] [id number] Feb, Acquired absence of right leg below knee Z89.511 [facility] [id number] [place] [address] [id number] Feb, Diabetes type 2, uncontrolled E11.65 and Acquired absence of right leg below knee Z89.511 [facility] [id number] [place] [address] [id number] Jan, [place] [id number] [place] [address] [id number] Jan, [facility] [id number] [place] [phone] Jan, [facility] [id number] [place] [address] [id number] Jan, [place] [place] [id number] [place] [address] [id number] Dec, [address] [place] [address] [id number] Dec, Diabetes with neurological manifestations, type II or unspecified type, not stated as uncontrolled 250.60 and Open wound of foot except toe(s) alone, without mention of complication 892.0 [facility] [id number] [id number] Dec, [place] [id number] [place] [address] [id number] Nov, [facility] [address] [place] [address] [id number] Nov, Cellulitis of foot 682.7 [address] [place] [address] [id number] Oct, [place] [id number] [id number] Oct, Corneal abrasion 918.1 [facility] [address] [id number], [place] [id number] Oct, [facility] [address] [id number], [place] [id number] Oct, [facility] [address] [id number] [place] [id number] August, [facility] [address] [id number], [place] [id number] August, [facility] [address] [id number], [place] [id number] August, [facility] [id number] [id number] August, [facility] [address] [id number] [id number] August, Diabetes mellitus without mention of complication, type II or unspecified type, not stated as uncontrolled 250.00 [facility] [id number], [place] [address] Jul, [facility] [id number] [place] [phone] Jul, [facility] [id number] [place] [phone] Apr, [facility] [address]00565100[place], [place] [address] Apr, [facility] [id number], [place] [address] Mar, [facility] [id number] [place] [address] Mar, [facility] [id number] [place] [address] Mar, [facility] [id number], [place] [address] Mar, [facility] [place] [facility] [address] [id number], [place] [address] Mar, [facility] [address] [id number], [place] [address] Mar, [facility] [address] [facility] [id number] [id number] Mar, [facility] [address] [id number], [place] [address] Mar, [facility] [place] [facility] [address] [id number] [place] [address] Mar, [facility] [place] [facility] [address] [id number] [place] [address] Mar, [facility] [place] [facility] [address] [facility] [id number], [place] [address] Mar, [facility] [address] [facility] [id number], [place] [address] Mar, [facility] [address] [facility] [id number], [place] [address] Mar, [facility] [address] [facility] [id number], [place] [id number] Mar, [facility] [address] [facility] [id number], [place] [address] Jan, [facility] [address] [facility] [id number], [place] [id number] Jan, [facility] [place] [facility] [address] [id number], [place] [address] Jan, [facility] [place] [facility] [address] [facility] [id number], [place] [address] Jan, [facility] [place] [facility] [address] [facility] [id number], [place] [address] Jan, [facility] [address] [facility] [id number], [place] [id number] Jan, [facility] [place] [facility] [address] [id number] [place] [address] Dec, [facility] [address] [id number] [place] [id number] Nov, [facility] [place] [facility] [address] [id number] [place] [address] Nov, [facility] [address] [id number] [place] [id number] Oct, [facility] [place] [facility] [address] [id number] [place] [address] Oct, [facility] [address] [id number] [place] [id number] Oct, [facility] [place] [facility] [address] [id number] [place] [address] Oct, [facility] [place] [facility] [address] [facility] [id number] [place] [address] August, [facility] [place] [facility] [address] [facility] [id number] [place] [address] August, [facility] [place] [facility] [address] [id number] [place] [address] August, [facility] [place] [facility] [address] [facility] [id number] [place] [address] August, [facility] [address] [facility] [id number] [place] [id number] Jul, [facility] [place] [facility] [address] [id number], [place] [address] Jul, [facility] [address] [id number] [place] [id number] Jun, [facility] [place] [facility] [address] [id number] [place] [address] Jun, [facility] [address] [id number] [place] [id number] Jun, [facility] [place] [facility] [address] [id number] [place] [address] Jun, [facility] [address] [id number] [place] [id number] Jun, [facility] [address] [id number] [place] [address] Jun, [facility] [address] [id number] [place] [id number] Jun, [facility] [address] [facility] [id number], [place] [address] Jun, [facility] [address] [facility] [id number] [place] [id number] May, [facility] [place] [facility] [address] [facility] [id number], [place] [address] May, [facility] [address] [facility] [id number] [place] [id number] May, [facility] [place] [facility] [address]100[place], [place] [address] May, [facility] [place] [facility] [address] [id number], [place] [address] May, [facility] [place] [facility] [address] [facility] [id number], [place] [address] May, [facility] [address] [facility] [id number], [place] [id number] May, [facility] [place] [facility] [address] [facility] [id number], [place] [address] May, [facility] [address] [facility] [id number], [place] [id number] May, [facility] [place] [facility] [address] [facility] [id number], [place] [address] May, [facility] [place] [facility] [address] [facility] [id number], [place] [address] Apr, [facility] [place] [facility] [address] [facility] [id number], [place] [address] Apr, [facility] [address] [facility] [id number] [place] [id number] Apr, [facility] [address] [id number], [place] [address] Apr, [facility] [address] [id number] [place] [id number] Sep, [facility] [address] [facility] [id number], [place] [address] Sep, [facility] [address] [id number] [place] [id number] Sep, [facility] [address] [id number] [place] [id number] Sep, [facility] [address] [facility] [id number], [place] [address] Jun, [facility] [address] [id number] [place] [id number] Nov, [facility] [address] [id number] [place] [id number] Nov, [facility] [address] [id number] [place] 915305911 Nov, [facility] [address] [id number] [place] 82822230[address] Nov, [facility] [address] [id number] [place] [id number] Nov, [facility] [address] [id number] [place] [id number] Nov, [facility] [address] [id number] [place] [id number] Nov, [facility] [address] [id number] [place] [id number] Nov, [facility] [address] [id number] [place] [id number] Nov, [facility] [address] [id number] [place] [id number] Sep, [facility] [address] [id number] [place] [id number] Sep, [facility] [address] [id number] [place] [id number] Sep, [facility] [address] [facility] [id number] [id number] Sep, [facility] [address] [facility] [id number] [id number] August, [facility] [address] [facility] [id number] [id number] August, [facility] [address] [id number] [id number] August, [facility] [address] [facility] [id number] [id number] August, [facility] [address] [facility] [id number], [place] [address] Sep, IMMUNIZATIONS No Known Immunizations SOCIAL HISTORY Never Assessed REASON FOR VISIT Diabetes follow up Lizeth SARABIA PLAN OF CARE Activity Details Follow Up 4 Weeks Reason:dm VITAL SIGNS Height 72 in 2017-11-16 Weight 303.8 lbs 2017-11-16 Temperature 97.8 degrees Fahrenheit 2017-11-16 Heart Rate 96 bpm 2017-11-16 Respiratory Rate 20 2017-11-16 BMI 41.20 kg/m2 2017-11-16 Blood pressure systolic 128 mmHg 2017-11-16 Blood pressure diastolic 78 mmHg 2017-11-16 MEDICATIONS Medication Instructions Dosage Frequency Start Date End Date Duration Status Leg Prosthesis N/A DON: 99 as directed Right below knee definitive Nov, Active Sildenafil Citrate 20 mg Orally do not take more than 1-2 tabs in a 24 hour period 1-2 tablets prn for sexual activity Jun, Active Zoloft 100 MG Orally Once a day 1 tablet 24h Active Omeprazole 40 MG Orally Once a day 1 capsule 24h 30 days Active Singulair 10 MG Orally Once a day 1 tablet in the evening 24h Active Zoloft 50 mg Orally Once a day 1 tablet 24h Active Potassium Chloride 20 MEQ Orally Once a day 1 tablet 24h Dec, Active Pioglitazone HCl 30 MG DX- E11.65 Once a day 1 tablet 24h 07 Jun, 2017 Active Blood Pressure Kit ... as directed Mar, Active Wheelchair - as directed Apr, lifetime Active BD Pen Needle Nedra U/F 32G X 4 MM as directed 8h Sep, Active Hydrocodone-Acetaminophen 7.5-325 MG Orally every 6 hrs PRN must last 28 days 1 tablet as needed Oct, 0 days Active Blood Glucose Test Strip - as directed 8h Dec, 30 days Active Knee Compression Sleeve/L/XL - sleeve and liner August, Active Gemfibrozil 600 MG Orally twice a day take 1 tablet 12h Active Diovan HCT 160-12.5 MG Orally Once a day take 1 tablet 24h Active Amlodipine Besylate 10 mg Orally Once a day 1 tablet 24h Active Tresiba FlexTouch 200 UNIT/ML Subcutaneous at bedtime 155 units Sep, Active Ibuprofen 800 MG Orally Three times a day 1 tablet with food or milk as needed 8h Feb, Active Silvadene 1 % Externally Once a day 1 application to affected area 24h Jul, Active Gabapentin 600 MG Orally Three times a day 1 capsule 1 tab qhs x 5 d then bid x 5 d then tid 8h Dec, Active Lancets - as directed Mar, Active Metformin HCl 1000 MG Orally Twice a day 1 tablet with meals 12h Active EpiPen 0.3 mg/0.3ml Injection as directed as directed Oct, Active Walker - as directed Apr, Active Farxiga 10 MG Orally Once a day in the morning 1 tablet Active ProAir HFA 108 (90 Base) MCG/ACT Inhalation every 4-6 hours as needed 2 puffs Jul, Active BD Insulin Syringe 30G X 1/2 subcutaneously 5 times daily as directed Dec, Active NovoLog 100 UNIT/ML Subcutaneous 3 times a day, E11.65 60 units Jun, Active RESULTS No Results PROCEDURES Procedure Date Ordered Result Body Site [facility] VISIT ESTABLISHED PATIENT Nov 16, 2017 INSTRUCTIONS MEDICATIONS ADMINISTERED No Known [...] 11/2014 Surgical History amputation right mid-calf/foot at [facility] 01/2015 Hospitalization History [facility] post op infection to right foot, amputations to mid-calf 01/2015 Hospitalization History [facility] post-op 7 days, discharges with home health -02/2015 Hospitalization History [facility] ER visit for sore on right stump 04/2016 [facility]ization History [facility] wound on left lower leg, culture +for Strep G 12/2016
--- OUTSIDE RECORDS SUMMARY | 2018-10-31 17:32 | XMS REPORT ---
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 Active 125348542 Problem Erectile dysfunction, unspecified erectile dysfunction type N52.9 Active 452852532 Problem Venous insufficiency (chronic) (peripheral) I87.2 Active 53185096 Problem Major depressive disorder in partial remission, unspecified whether recurrent F32.4 Active 41143360 Problem DM 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 Active 61430522 Problem Anaphylactic reaction to bee sting, accidental or unintentional, initial encounter T63.441A Active 103590385 Problem Diabetes type 2, uncontrolled E11.65 Active 966892235 Problem 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 Active 606496198 Problem Skin ulcer of left lower leg, limited to breakdown of skin L97.921 Active 62602950 Problem Other chronic pain G89.29 Active 49454357 Problem Varicose veins of left lower extremity with ulcer other part of lower leg I83.028 Active 34010072 Problem Essential hypertension I10 Active 50952987 Problem Mild intermittent asthma without complication J45.20 Active 200355067 Problem Acquired absence of right leg below knee Z89.511 Active 424761571 Problem Phantom pain R52 Active 761949151 Problem Acute pain of left shoulder M25.512 Active 76048446 Problem Reflux esophagitis K21.0 Active 843879352 Problem Obstructive sleep apnea syndrome G47.33 Active 00243905 Problem Hammertoe of left foot M20.42 Active 668399478 Problem Cellulitis of left lower extremity L03.116 Active 671819725 Problem Wheelchair bound Z99.3 Active 507805047 ALLERGIES Substance Reaction Event Type Date Status Victoza vomiting Drug Allergy Oct, Active Lopid vomiting Drug Allergy Oct, Active Cleocin vomiting Drug Allergy Oct, Active Cephalexin rash Drug Allergy Oct, Active ENCOUNTERS Encounter Location Date Diagnosis [id number] [place] [address] [id number] Jan, [facility] [id number] [place] [address] Dec, [place] [id number] [place] [address] [id number] Dec, Diabetes type 2, uncontrolled E11.65 ; Essential hypertension I10 ; Reflux esophagitis K21.0 ; Major depressive disorder in partial remission, unspecified whether recurrent F32.4 ; Phantom pain R52 and BMI 40.0-44.9, adult Z68.41 [place] [id number] [place] [address] [id number] Nov, Phantom pain R52 [address] [id number] Nov, Diabetes type 2, uncontrolled E11.65 and BMI 40.0-44.9, adult Z68.[address] [id number] Oct, Anaphylactic reaction to bee sting, accidental or unintentional, initial encounter T63.441A ; Pain in right shoulder M25.511 and Other chronic pain G89.29 [address] [place] [address] [id number] Oct, Diabetes type 2, uncontrolled E11.65 [place] [id number] [place] [address] [id number] Oct, Diabetes type 2, uncontrolled E11.65 and Cellulitis of left lower extremity L03.[address] [id number] Oct, Phantom pain R52 [facility] [address] [place] [address] 15 Sep, 2017 Onychomycosis B35.1 ; Impaired circulation of left leg I99.9 and DM 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 [facility] [id number] [id number] Sep, BMI 40.0-44.9, adult Z68.41 ; Skin ulcer of left lower leg, limited to breakdown of skin L97.921 ; Acute pain of left shoulder M25.512 ; DM neuro manif type II E11.49 ; Mild intermittent asthma without complication J45.20 and Phantom pain R52 [facility] [id number] [place] [address] [id number] Sep, Phantom pain R52 [facility] [id number] [place] [address] [id number] August, Phantom pain R52 [address] [id number] August, Acquired absence of right leg below knee Z89.511 [place] [id number] [place] [address] [id number] August, Acquired absence of right leg below knee Z89.511 [place] [id number] [place] [address] August, Diabetes type 2, uncontrolled E11.65 [place] [address] [address] August, [place] [address] [address] August, [place] [id number] [place] [address] [id number] August, BMI 40.0-44.9, adult Z68.41 ; 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 and Acquired absence of right leg below knee Z89.511 [facility] [address] [id number] [place] [address] August, [facility] [address] [id number] [id number] Jul, Skin ulcer of left lower leg, limited to breakdown of skin L97.921 [id number] [id number] Jul, [facility] [address] [place] [address] [id number] Jul, BMI 40.0-44.9, adult Z68.41 ; Skin ulcer of left lower leg, limited to breakdown of skin L97.921 and DM neuro manif type II E11.49 [place] [id number] [place] [address] Jul, [facility] [id number] [place] [address] [id number] Jul, [place] [id number] [place] [address] [id number] Jul, [place] [id number] [place] [address] [id number] Jun, Erectile dysfunction, unspecified erectile dysfunction type N52.9 [place] [id number] [place] [address] Jun, [place] [id number] [place] [address] [id number] Jun, BMI 40.0-44.9, adult Z68.41 ; Diabetes type 2, uncontrolled E11.65 ; Phantom pain R52 ; Subluxation of right shoulder joint, sequela S43.001S and Erectile dysfunction, unspecified erectile dysfunction type N52.9 [place] [id number] [place] [address] Jun, DM neuro manif type II E11.49 ; Onychomycosis B35.1 and Hammertoe of left foot M20.42 [place] [id number] [place] [address] Jun, [place] [id number] [place] [address] [id number] Jun, DM neuro manif type II E11.49 [place] [address] [facility] [id number] [id number] Jun, DM neuro manif type II E11.49 [place] [id number] [place] [address] [id number] May, DM neuro manif type II E11.49 ; Venous insufficiency (chronic) (peripheral) I87.2 ; 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 ; Essential hypertension I10 and Phantom pain R52 [place] [id number] [place] [address] [id number] Apr, Diabetes type 2, uncontrolled E11.65 ; Acquired absence of right leg below knee Z89.511 ; Essential hypertension I10 ; Reflux esophagitis K21.0 and Phantom pain R52 [place] [id number] [place] [address] [id number] Apr, BMI 40.0-44.9, adult Z68.41 and Wheelchair bound Z99.3 [place] [id number] [place] [address] [id number] Mar, [address] [id number] Mar, BMI 40.0-44.9, adult Z68.41 ; Diabetes type 2, uncontrolled E11.65 ; Mild intermittent asthma without complication J45.20 ; Phantom pain R52 ; Reflux esophagitis K21.0 and Essential hypertension I10 [address] [place] [address] [id number] Feb, Phantom pain R52 [address] [place] [address] [id number] Feb, Phantom pain R52 and Acute pain of left shoulder M25.512 [place] [id number] [place] [address] [id number] Jan, Phantom pain R52 [place] [id number] [place] [address] [id number] Jan, DM neuro manif type II E11.49 ; Cellulitis of left lower extremity L03.116 ; Obstructive sleep apnea syndrome G47.33 ; Thyroid disorder screen Z13.29 and Lipid screening Z13.[address] [place] [address] [id number] Jan, [place] [id number] [place] [address] [id number] Dec, DM neuro manif type II E11.49 ; Phantom pain R52 and Mild intermittent asthma without complication J45.20 [facility] [id number] [place] [address] [id number] Dec, Wound of left lower extremity, subsequent encounter S81.802D [facility] [id number] [place] [address] [id number] Nov, [facility] [address] [address] Nov, [facility] [id number] [place] [address] [id number] Nov, DM neuro manif type II E11.49 ; Mild intermittent asthma without complication J45.20 ; Essential hypertension I10 and Phantom pain R52 [facility] [id number] [place] [address] [id number] Oct, Phantom pain R52 [facility] [id number] [place] [address] [id number] Sep, Phantom pain R52 ; DM neuro manif type II E11.49 and Essential hypertension I10 [facility] [id number] [place] [address] [id number] August, DM neuro manif type II E11.49 ; Phantom pain R52 and Essential hypertension I10 [facility] [id number] [place] [address] [id number] Jul, DM neuro manif type II E11.49 and Phantom pain R52 [facility] [id number] [place] [address] Jun, Onychomycosis B35.1 and DM neuro manif type II E11.49 [facility] [id number] [place] [address] [id number] Jun, DM neuro manif type II E11.49 ; Phantom pain R52 ; Essential hypertension I10 and Diabetes with neurological manifestations, type II or unspecified type, not stated as uncontrolled 250.60 [facility] [id number] [place] [address] [id number] Apr, DM neuro manif type II E11.49 ; Phantom pain R52 ; Essential hypertension I10 and Mild intermittent asthma without complication J45.20 [facility] [id number] [place] [address] [id number] Apr, Need for follow up care after discharge from healthcare facility Z92.89 and Wound of right lower extremity, subsequent encounter S81.801D [facility] [id number] [place] [address] [id number] Mar, Phantom pain R52 ; DM neuro manif type II E11.49 and Essential hypertension I10 [place] [id number] [place] [address] [id number] Feb, DM neuro manif type II E11.49 ; Phantom pain R52 and Essential hypertension I10 [place] [id number] [place] [address] [id number] Jan, Phantom pain R52 and DM neuro manif type II E11.49 [place] [id number] [place] [address] [id number] Dec, [place] [id number] [place] [address] [id number] Dec, DM neuro manif type II E11.49 ; Phantom pain R52 ; Mild intermittent asthma without complication J45.20 and Essential hypertension I10 [facility] [address] [id number] [address] Dec, Onychomycosis B35.1 ; Xerosis of skin L85.3 and DM neuro manif type II E11.49 [address] [id number] Nov, Acquired absence of right leg below knee Z89.511 [place] [id number] [place] [address] [id number] Nov, [place] [id number] [place] [address] [id number] Nov, [facility] [id number] [place] [address] [id number] Sep, [place] [id number] [place] [address] [id number] Sep, Diabetes type 2, uncontrolled E11.65 ; Leg wound, left, initial encounter S81.802A and Erectile disorder due to medical condition in male N52.1 [place] [id number] [place] [address] [id number] 08 Sep, 2015 [facility] [address] [id number] Jul, [place] [id number] [place] [address] [id number] 16 Jul, [address] [id number] Jul, [address] [id number] Jul, 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 ; Varicose vein of leg I83.93 ; Diabetes type 2, uncontrolled E11.65 and Chronic pain G89.29 [place] [id number] [place] [address] [id number] Jul, [address] [id number] Jul, Diabetes with neurological manifestations, type II or unspecified type, not stated as uncontrolled 250.[address] [id number] Jul, [address] [id number] Jul, [place] [address] [place] [address] [id number] Jun, Diabetes type 2, uncontrolled E11.65 [place] [id number] [place] [address] [id number] Jun, Pain in right knee M25.561 ; Pain in left knee M25.562 ; Other chronic pain G89.29 and Primary osteoarthritis of both knees M17.[address] [id number] Apr, Diabetes type 2, uncontrolled E11.65 ; Puncture wound of foot, left, initial encounter S91.332A and Encounter for immunization Z23 [place] [id number] [place] [address] [id number] Apr, [facility] [id number] [place] [address] [id number] Apr, [facility] [id number] [place] [address] [id number] Feb, Acquired absence of right leg below knee Z89.511 [facility] [id number] [place] [address] [id number] Feb, Acquired absence of right leg below knee Z89.511 [facility] [id number] [place] [address] [id number] Feb, Diabetes type 2, uncontrolled E11.65 and Acquired absence of right leg below knee Z89.511 [facility] [id number] [place] [address] [id number] Jan, [place] [id number] [place] [address] [id number] Jan, [facility] [id number] [place] [address] Jan, [facility] [id number] [place] [address] [id number] Jan, [facility] [id number] [place] [address] [id number] Dec, [address] [place] [address] [id number] Dec, Diabetes with neurological manifestations, type II or unspecified type, not stated as uncontrolled 250.60 and Open wound of foot except toe(s) alone, without mention of complication 892.0 [facility] [id number] [id number] Dec, [place] [id number] [place] [address] [id number] Nov, [facility] [address] [place] [address] [id number] Nov, Cellulitis of foot 682.7 [address] [place] [address] [id number] Oct, [place] [id number] [id number] Oct, Corneal abrasion 918.1 [facility] [address] [id number] [id number] Oct, [facility] [address] [id number][place] [id number] Oct, [facility] [place] [address] [id number] [place] [id number] August, [facility] [address] [id number][place] [id number] August, [facility] [place] [address] [id number][place] [id number] August, [facility] [place] [id number], [place] [id number] August, [facility] [place] [address] [id number] [id number] August, Diabetes mellitus without mention of complication, type II or unspecified type, not stated as uncontrolled 250.00 [facility] [address] [id number] [address] Jul, [facility] [id number] [place] [address] Jul, [facility] [id number] [place] [address] Apr, [facility] [address]005[address], [place] [address] Apr, [facility] [address] [id number] [address] Mar, [facility] [id number] [place] [address] Mar, [facility] [id number] [place] [address] Mar, [facility] [address] [id number] [address] Mar, [facility] [place] [facility] [address] [id number] [address] Mar, [facility] [address] [id number], [place] [address] Mar, [facility] [place] [address] [facility] [id number], [place] [id number] Mar, [facility] [address] [id number], [place] [address] Mar, [facility] [place] [facility] [address] [id number] [place] [address] Mar, [facility] [place] [facility] [address] [id number] [place] [address] Mar, [facility] [place] [facility] [address] [facility] [id number], [place] [address] Mar, [facility] [address] [facility] [id number], [place] [address] Mar, [facility] [address] [facility] [id number], [place] [address] Mar, [facility] [place] [address] [facility] [id number][place] [id number] Mar, [facility] [address] [facility] [id number], [place] [address] Jan, [facility] [place] [address] [facility] [id number][place] [id number] Jan, [facility] [place] [facility] [address] [id number], [place] [address] Jan, [facility] [place] [facility] [address] [facility] [id number][place] [address] Jan, [facility] [place] [facility] [address] [facility] [id number][place] [address] Jan, [facility] [place] [address] [facility] [id number][place] [id number] Jan, [facility] [place] [facility] [address] [id number] [place] [address] Dec, [facility] [address] [id number] [place] [id number] Nov, [facility] [place] [facility] [address] [id number] [place] [address] Nov, [facility] [address] [id number] [place] [id number] Oct, [facility] [place] [facility] [address] [id number] [place] [address] Oct, [facility] [address] [id number] [place] [id number] Oct, [facility] [place] [facility] [address] [id number] [place] [address] Oct, [facility] [place] [facility] [address] [facility] [id number] [place] [address] August, [facility] [place] [facility] [address] [facility] [id number] [place] [address] August, [facility] [place] [facility] [address] [id number] [place] [address] August, [facility] [place] [facility] [address] [facility] [id number] [place] [address] August, [facility] [address] [facility] [id number] [place] [id number] Jul, [facility] [place] [facility] [address] [id number], [place] [address] Jul, [facility] [address] [id number] [place] [id number] Jun, [facility] [place] [facility] [address] [id number] [place] [address] Jun, [facility] [address] [id number] [place] [id number] Jun, [facility] [place] [facility] [address] [id number] [place] [address] Jun, [facility] [address] [id number] [place] [id number] Jun, [facility] [address] [id number] [place] [address] Jun, [facility] [address] [id number] [place] [id number] Jun, [facility] [address] [facility] [id number], [place] [address] Jun, [facility] [address] [facility] [id number] [place] [id number] May, [facility] [place] [facility] [address] [facility] [id number], [place] [address] May, [facility] [address] [facility] [id number] [place] [id number] May, [facility] [place] [facility] [address], [place] [address] May, [facility] [place] [facility] [address] [id number], [place] [address] May, [facility] [place] [facility] [address] [facility] [id number], [place] [address] May, [facility] [address] [facility] [id number], [place] [id number] May, [facility] [place] [facility] [address] [facility] [id number], [place] [address] May, [facility] [address] [facility] [id number], [place] [id number] May, [facility] [place] [facility] [address] [facility] [id number], [place] [address] May, [facility] [place] [facility] [address] [facility] [id number], [place] [address] Apr, [facility] [place] [facility] [address] [facility] [id number], [place] [address] Apr, [facility] [address] [facility] [id number] [place] [id number] Apr, [facility] [address] [id number], [place] [address] Apr, [facility] [address] [id number] [place] [id number] Sep, [facility] [address] [facility] [id number], [place] [address] Sep, [facility] [address] [id number] [place] [id number] Sep, [facility] [address] [id number] [place] [id number] Sep, [facility] [address] [facility] [id number], [place] [address] Jun, [facility] [address] [id number] [place] [id number] Nov, [facility] [address] [id number] [place] [id number] Nov, [facility] [address] [id number] [place] [id number] Nov, [facility] [address] [id number] [place] [id number] Nov, [facility] [address] [id number] [place] [id number] Nov, [facility] [address] [id number] [place] [id number] Nov, [facility] [address] [id number] [place] [id number] Nov, [facility] [address] [id number] [place] [id number] Nov, [facility] [address] [id number] [place] [id number] Nov, [facility] [address] [id number] [place] [id number] Sep, [facility] [address] [id number] [place] [id number] Sep, [facility] [address] [id number] [place] [id number] Sep, [facility] [address] [facility] [id number][place] [id number] Sep, [facility] [address] [id number] [id number] August, [facility] [address] [facility] [id number][place] [id number] August, [facility] [address] [id number] [id number] August, [facility] [address] [id number][place] [id number] August, [facility] [address] [facility] [id number], [place] [address] Sep, IMMUNIZATIONS No Known Immunizations SOCIAL HISTORY Never Assessed REASON FOR VISIT Needs epi pen for bee sting Medardo MARIE PLAN OF CARE Activity Details Follow Up prn Reason: VITAL SIGNS Height 72 in 2017-11-09 Weight 301.8 lbs 2017-11-09 Heart Rate 86 bpm 2017-11-09 Respiratory Rate 16 2017-11-09 BMI 40.93 kg/m2 2017-11-09 Blood pressure systolic 148 mmHg 2017-11-09 Blood pressure diastolic 98 mmHg 2017-11-09 MEDICATIONS Medication Instructions Dosage Frequency Start Date End Date Duration Status Leg Prosthesis N/A DON: 99 as directed Right below knee definitive Nov, Active Metformin HCl 1000 MG Orally Twice a day 1 tablet with meals 12h Active NovoLog 100 UNIT/ML Subcutaneous 3 times a day, E11.65 60 units Jun, Active Diovan HCT 160-12.5 MG Orally Once a day take 1 tablet 24h Active Silvadene 1 % Externally Once a day 1 application to affected area 24h Jul, Active Zoloft 50 mg Orally Once a day 1 tablet 24h Active Gemfibrozil 600 MG Orally twice a day take 1 tablet 12h Active Zoloft 100 MG Orally Once a day 1 tablet 24h Active Walker - as directed Apr, Active Wheelchair - as directed Apr, lifetime Active BD Pen Needle Nedra U/F 32G X 4 MM as directed 8h Sep, Active Blood Pressure Kit ... as directed Mar, Active Lancets - as directed Mar, Active Pioglitazone HCl 30 MG DX- E11.65 Once a day 1 tablet 24h Jun, Active Gabapentin 600 MG Orally Three times a day 1 capsule 1 tab qhs x 5 d then bid x 5 d then tid 8h Dec, Active EpiPen 0.3 mg/0.3ml Injection as directed as directed Oct, Active Amlodipine Besylate 10 mg Orally Once a day 1 tablet 24h Active Hydrocodone-Acetaminophen 7.5-325 MG Orally every 6 hrs PRN must last 28 days 1 tablet as needed Oct, 0 days Active Knee Compression Sleeve/L/XL - sleeve and liner August, Active ProAir HFA 108 (90 Base) MCG/ACT Inhalation every 4-6 hours as needed 2 puffs Jul, Active Sildenafil Citrate 20 mg Orally do not take more than 1-2 tabs in a 24 hour period 1-2 tablets prn for sexual activity Jun, Active Farxiga 5 mg Orally Once a day in the morning 1 tablet Active Singulair 10 MG Orally Once a day 1 tablet in the evening 24h Active Blood Glucose Test Strip - as directed 8h Dec, 30 days Active Omeprazole 40 MG Orally Once a day 1 capsule 24h 30 days Active BD Insulin Syringe 30G X 1/2 subcutaneously 5 times daily as directed Dec, Active Ibuprofen 800 MG Orally Three times a day 1 tablet with food or milk as needed 8h Feb, Active Potassium Chloride 20 MEQ Orally Once a day 1 tablet 24h Dec, Active Tresiba FlexTouch 200 UNIT/ML Subcutaneous at bedtime 150 units Sep, 0 days Active RESULTS No Results PROCEDURES Procedure Date Ordered Result Body Site [facility] VISIT ESTABLISHED PATIENT November 09, 2017 INSTRUCTIONS MEDICATIONS ADMINISTERED No Known Medications [...] 11/2014 Surgical History amputation right mid-calf/foot at [facility] 01/2015 Hospitalization History [facility] post op infection to right foot, amputations to mid-calf 01/2015 Hospitalization History [facility] In post-op 7 days, discharges with home health -02/2015 Hospitalization History [facility] visit for sore on right stump 04/2016 Hospitalization History [facility] wound on left lower leg, culture +for Strep G 12/2016
--- OUTSIDE RECORDS SUMMARY | 2018-10-31 17:33 | XMS REPORT ---
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 Active 866666980 Problem Erectile dysfunction, unspecified erectile dysfunction type N52.9 Active 688154434 Problem Venous insufficiency (chronic) (peripheral) I87.2 Active 49659176 Problem Major depressive disorder in partial remission, unspecified whether recurrent F32.4 Active 23897890 Problem DM neuro manif type II E11.49 Active 55283256 Problem Anaphylactic reaction to bee sting, accidental or unintentional, initial encounter T63.441A Active 007754631 Problem Diabetes type 2, uncontrolled E11.65 Active 445403062 Problem 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 Active 610098681 Problem Skin ulcer of left lower leg, limited to breakdown of skin L97.921 Active 52559893 Problem Other chronic pain G89.29 Active 02051639 Problem Varicose veins of left lower extremity with ulcer other part of lower leg I83.028 Active 66400953 Problem Essential hypertension I10 Active 53082036 Problem Mild intermittent asthma without complication J45.20 Active 992150236 Problem Acquired absence of right leg below knee Z89.511 Active 624681378 Problem Phantom pain R52 Active 984183982 Problem Acute pain of left shoulder M25.512 Active 25515325 Problem Reflux esophagitis K21.0 Active 036283178 Problem Obstructive sleep apnea syndrome G47.33 Active 61802833 Problem Hammertoe of left foot M20.42 Active 339198019 Problem Cellulitis of left lower extremity L03.116 Active 260937106 Problem Wheelchair bound Z99.3 Active 106322174 ALLERGIES No Information ENCOUNTERS Encounter Location Date Diagnosis [address] [place] [address] [id number] Jan, [facility] [address] [address] Dec, [place] [id number] [place] [address] [id number] Dec, Diabetes type 2, uncontrolled E11.65 ; Essential hypertension I10 ; Reflux esophagitis K21.0 ; Major depressive disorder in partial remission, unspecified whether recurrent F32.4 ; Phantom pain R52 and BMI 40.0-44.9, adult Z68.[address] [id number] Nov, Phantom pain R52 [address] [id number] Nov, Diabetes type 2, uncontrolled E11.65 and BMI 40.0-44.9, adult Z68.[address] [id number] Oct, Anaphylactic reaction to bee sting, accidental or unintentional, initial encounter T63.441A ; Pain in right shoulder M25.511 and Other chronic pain G89.29 [place] [id number] [place] [address] [id number] Oct, Diabetes type 2, uncontrolled E11.[address] [id number] Oct, Diabetes type 2, uncontrolled E11.65 and Cellulitis of left lower extremity L03.116 [place] [id number] [place] [address] [id number] Oct, Phantom pain R52 [facility] [address] [place] [address] 15 Sep, 2017 Onychomycosis B35.1 ; Impaired circulation of left leg I99.9 and DM neuro manif type II E11.49 [place] [id number] [place] [address] [id number] Sep, BMI 40.0-44.9, adult Z68.41 ; Skin ulcer of left lower leg, limited to breakdown of skin L97.921 ; Acute pain of left shoulder M25.512 ; DM neuro manif type II E11.49 ; Mild intermittent asthma without complication J45.20 and Phantom pain R52 [facility] [id number] [place] [address] [id number] Sep, Phantom pain R52 [facility] [id number] [place] [address] [id number] August, Phantom pain R52 [facility] [address] [id number] August, Acquired absence of right leg below knee Z89.511 [place] [address] [id number] August, Acquired absence of right leg below knee Z89.511 [place] [address] [place] [id number] [place] [address] August, Diabetes type 2, uncontrolled E11.65 [place] [address] [place] [id number] [place] [address] August, [place] [address] [address] August, [place] [id number] [place] [address] [id number] August, BMI 40.0-44.9, adult Z68.41 ; 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 and Acquired absence of right leg below knee Z89.511 [facility] [address] [id number] [place] [address] August, [facility] [address] [place] [id number] [place] [address] [id number] Jul, Skin ulcer of left lower leg, limited to breakdown of skin L97.921 [facility] [id number] [id number] Jul, [address] [place] [address] [id number] Jul, BMI 40.0-44.9, adult Z68.41 ; Skin ulcer of left lower leg, limited to breakdown of skin L97.921 and DM neuro manif type II E11.49 [place] [address] [place] [address] [id number] [place] [address] Jul, [facility] [address] [place] [address] [id number] Jul, [place] [id number] [place] [address] [id number] Jul, [facility] [id number] [place] [address] [id number] Jun, Erectile dysfunction, unspecified erectile dysfunction type N52.9 [place] [address] [address] [id number] [place] [address] Jun, [place] [id number] [place] [address] [id number] Jun, BMI 40.0-44.9, adult Z68.41 ; Diabetes type 2, uncontrolled E11.65 ; Phantom pain R52 ; Subluxation of right shoulder joint, sequela S43.001S and Erectile dysfunction, unspecified erectile dysfunction type N52.9 [place] [address] [place] [id number] [place] [address] Jun, DM neuro manif type II E11.49 ; Onychomycosis B35.1 and Hammertoe of left foot M20.42 [place] [address] [place] [address] [id number] [place] [address] Jun, [address] [place] [address] [id number] Jun, DM neuro manif type II E11.[address] [place] [place] [id number] [phone] Jun, DM neuro manif type II E11.49 [facility] [address] [id number] May, DM neuro manif type II E11.49 ; Venous insufficiency (chronic) (peripheral) I87.2 ; 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 ; Essential hypertension I10 and Phantom pain R52 [facility] [address] [id number] [place] [address] [id number] Apr, Diabetes type 2, uncontrolled E11.65 ; Acquired absence of right leg below knee Z89.511 ; Essential hypertension I10 ; Reflux esophagitis K21.0 and Phantom pain R52 [place] [address] [id number] Apr, BMI 40.0-44.9, adult Z68.41 and Wheelchair bound Z99.[address] [id number] Mar, [address] [id number] Mar, BMI 40.0-44.9, adult Z68.41 ; Diabetes type 2, uncontrolled E11.65 ; Mild intermittent asthma without complication J45.20 ; Phantom pain R52 ; Reflux esophagitis K21.0 and Essential hypertension I10 [facility] [address] [id number] [place] [address] [id number] Feb, Phantom pain R52 [place] [address] [id number] Feb, Phantom pain R52 and Acute pain of left shoulder M25.512 [place] [id number] [place] [address] [id number] Jan, Phantom pain R52 [place] [address] [place] [id number] [place] [address] [id number] Jan, DM neuro manif type II E11.49 ; Cellulitis of left lower extremity L03.116 ; Obstructive sleep apnea syndrome G47.33 ; Thyroid disorder screen Z13.29 and Lipid screening Z13.220 [place] [address] [place] [id number] [place] [address] [id number] Jan, [place] [id number] [place] [address] [id number] Dec, DM neuro manif type II E11.49 ; Phantom pain R52 and Mild intermittent asthma without complication J45.20 [facility] [id number] [place] [address] [id number] Dec, Wound of left lower extremity, subsequent encounter S81.802D [facility] [address] [id number] Nov, [facility] [id number] [place] [address] Nov, [facility] [address] [id number] Nov, DM neuro manif type II E11.49 ; Mild intermittent asthma without complication J45.20 ; Essential hypertension I10 and Phantom pain R52 [facility] [address] [id number] Oct, Phantom pain R52 [facility] [address] [id number] Sep, Phantom pain R52 ; DM neuro manif type II E11.49 and Essential hypertension I10 [facility] [address] [place] [id number] [place] [address] [id number] August, DM neuro manif type II E11.49 ; Phantom pain R52 and Essential hypertension I10 [address] [id number] Jul, DM neuro manif type II E11.49 and Phantom pain R52 [facility] [id number] [place] [address] Jun, Onychomycosis B35.1 and DM neuro manif type II E11.49 [facility] [id number] [place] [address] [id number] Jun, DM neuro manif type II E11.49 ; Phantom pain R52 ; Essential hypertension I10 and Diabetes with neurological manifestations, type II or unspecified type, not stated as uncontrolled 250.60 [facility] [address] [id number] [place] [address] [id number] Apr, DM neuro manif type II E11.49 ; Phantom pain R52 ; Essential hypertension I10 and Mild intermittent asthma without complication J45.20 [facility] [address] [id number] [place] [address] [id number] Apr, Need for follow up care after discharge from healthcare facility Z92.89 and Wound of right lower extremity, subsequent encounter S81.801D [facility] [address] [id number] [place] [address] [id number] Mar, Phantom pain R52 ; DM neuro manif type II E11.49 and Essential hypertension I10 [facility] [address] [id number] [place] [address] [id number] Feb, DM neuro manif type II E11.49 ; Phantom pain R52 and Essential hypertension I10 [facility] [address] [id number] [place] [address] [id number] Jan, Phantom pain R52 and DM neuro manif type II E11.49 [place] [id number] [place] [address] [id number] Dec, [place] [address] [place] [address] [id number] Dec, DM neuro manif type II E11.49 ; Phantom pain R52 ; Mild intermittent asthma without complication J45.20 and Essential hypertension I10 [facility] [address] [address] Dec, Onychomycosis B35.1 ; Xerosis of skin L85.3 and DM neuro manif type II E11.49 [facility] [address] [place] [address] [id number] Nov, Acquired absence of right leg below knee Z89.511 [place] [id number] [place] [address] [id number] Nov, [place] [id number] [place] [address] [id number] Nov, [place] [id number] [place] [address] [id number] Sep, [place] [address] [place] [address] [id number] Sep, Diabetes type 2, uncontrolled E11.65 ; Leg wound, left, initial encounter S81.802A and Erectile disorder due to medical condition in male N52.1 [place] [id number] [place] [address] [id number] Sep, [facility] [id number] [id number] Jul, [facility] [id number] [place] [address] [id number] Jul, [facility] [address] [id number] [place] [address] [id number] Jul, [facility] [id number] [place] [address] [id number] Jul, 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 ; Varicose vein of leg I83.93 ; Diabetes type 2, uncontrolled E11.65 and Chronic pain G89.29 [facility] [id number] [place] [address] [id number] Jul, [facility] [address] [id number] [place] [address] [id number] Jul, Diabetes with neurological manifestations, type II or unspecified type, not stated as uncontrolled 250.60 [facility] [address] [id number] [place] [address] [id number] Jul, [facility] [address] [id number] [place] [address] [id number] Jul, [facility] [address] [id number] [place] [address] [id number] Jun, Diabetes type 2, uncontrolled E11.65 [facility] [address] [id number] [place] [address] [id number] Jun, Pain in right knee M25.561 ; Pain in left knee M25.562 ; Other chronic pain G89.29 and Primary osteoarthritis of both knees M17.0 [facility] [id number] [place] [address] [id number] Apr, Diabetes type 2, uncontrolled E11.65 ; Puncture wound of foot, left, initial encounter S91.332A and Encounter for immunization Z23 [facility] [id number] [id number] Apr, [facility] [address] [id number] [place] [address] [id number] Apr, [facility] [id number] [place] [address] [id number] Feb, Acquired absence of right leg below knee Z89.511 [facility] [address] [address] [id number] [place] [address] [id number] Feb, Acquired absence of right leg below knee Z89.511 [facility] [id number] [place] [address] [id number] Feb, Diabetes type 2, uncontrolled E11.65 and Acquired absence of right leg below knee Z89.511 [facility] [address] [id number] [place] [address] [id number] Jan, [facility] [address] [place] [id number] [place] [address] [id number] Jan, [facility] [address] [id number] [place] [address] Jan, [address] [place] [address] [id number] Jan, Don [place] [address] [id number] Dec, [place] [id number] [place] [address] [id number] Dec, Diabetes with neurological manifestations, type II or unspecified type, not stated as uncontrolled 250.60 and Open wound of foot except toe(s) alone, without mention of complication 892.[address] [place] [address] [id number] Dec, [place] [id number] [place] [address] [id number] Nov, [place] [id number] [place] [address] [id number] Nov, Cellulitis of foot 682.7 [place] [id number] [place] [address] [id number] Oct, [place] [id number] [place] [address] [id number] Oct, Corneal abrasion 918.1 [place] [id number] [place] [address] [id number] Oct, [facility] [address] [id number] [id number] Oct, [facility] [address] [facility] [id number][place] [id number] August, [facility] [address] [id number][place] [id number] August, [facility] [address] [id number][place] [id number] August, [facility] [address] [place] [id number] [id number] August, [facility] [address] [place] [id number][place] [id number] August, Diabetes mellitus without mention of complication, type II or unspecified type, not stated as uncontrolled 250.00 [facility] [id number] [place] [address] Jul, [facility] [address] [id number] [place] [address] Jul, [facility] [id number] [place] [address] Apr, [facility] [id number] [place] [address] Apr, [facility] [id number] [place] [address] Mar, [facility] [id number] [place] [address] Mar, [facility] [address] [id number], [place] [address] Mar, [facility] [id number] [place] [address] Mar, [facility] [id number] [place] [address] Mar, [facility] [id number] [place] [address] Mar, [facility] [address] [facility] [id number], [place] [id number] Mar, [facility] [place] [facility] [address] [facility] [id number] [place] [address] Mar, [facility] [place] [facility] [address] [facility] [id number] [place] [address] Mar, [facility] [place] [facility] [address] [facility] [id number] [place] [address] Mar, [facility] [place] [facility] [address] [facility] [id number] [place] [address] Mar, [facility] [place] [facility] [address] [facility] [id number] [place] [address] Mar, [facility] [place] [facility] [address] [facility] [id number] [place] [address] Mar, [facility] [address] [facility] [id number][place] [id number] Mar, [facility] [place] [facility] [address] [facility] [id number], [place] [address] Jan, [facility] [address] [facility] [id number][place] [id number] Jan, [facility] [place] [facility] [address] [facility] [id number], [place] [address] Jan, [facility] [place] [facility] [address] [facility] [id number], [place] [address] Jan, [facility] [place] [facility] [address] [facility] [id number], [place] [address] Jan, [facility] [address] [facility] [id number][place] [id number] Jan, [facility] [place] [facility] [address] [facility] [id number], [place] [address] Dec, [facility] [address] [facility] [id number], [place] [id number] Nov, [facility] [place] [facility] [address] [id number] [place] [address] Nov, [facility] [address] [id number] [place] [id number] Oct, [facility] [place] [facility] [address] [id number] [place] [address] Oct, [facility] [address] [id number] [place] [id number] Oct, [facility] [place] [facility] [address] [id number] [place] [address] Oct, [facility] [place] [facility] [address] [id number] [place] [address] August, [facility] [place] [facility] [address] [facility] [id number] [place] [address] August, [facility] [place] [facility] [address] [facility] [id number] [place] [address] August, [facility] [place] [facility] [address] [facility] [id number] [place] [address] August, [facility] [address] [facility] [id number] [place] [id number] Jul, [facility] [place] [facility] [address] [facility] [id number] [place] [address] Jul, [facility] [address] [facility] [id number], [place] [address] Jun, [facility] [place] [facility] [address] [facility] [id number], [place] [address] Jun, [facility] [address] [id number] [place] [id number] Jun, [facility] [place] [facility] [address] [facility] [id number] [place] [address] Jun, [facility] [address] [id number] [place] [id number] Jun, [facility] [place] [facility] [address] [facility] [id number], [place] [address] Jun, [facility] [address] [id number] [place] [id number] Jun, [facility] [place] [facility] [address] [facility] [id number] [place] [address] Jun, [facility] [address] [id number] [place] [id number] May, [facility] [place] [facility] [address] [facility] [id number], [place] [address] May, [facility] [address] [id number] [place] [id number] May, [facility] [place] [facility] [address] [facility] [id number] [place] [address] May, [facility] [place] [facility] [address] [facility] [id number] [place] [address] May, [facility] [place] [facility] [address] [facility] [id number], [place] [address] May, [facility] [address] [facility] [id number] [place] [id number] May, [facility] [place] [facility] [address] [facility] [id number], [place] [address] May, [facility] [address] [facility] [id number], [place] [id number] May, [facility] [place] [facility] [address] [facility] [id number], [place] [address] May, [facility] [place] [facility] [address] [facility] [id number], [place] [address] Apr, [facility] [place] [facility] [address] [facility] [id number], [place] [address] Apr, [facility] [address] [facility] [id number] [place] [id number] Apr, [facility] [place] [facility] [address] [facility] [id number], [place] [address] Apr, [facility] [address] [id number] [place] [address]94[address] Sep, [facility] [address] [facility] [id number] [place] [address] Sep, [facility] [address] [id number] [place] [id number] Sep, [facility] [address] [id number] [place] [id number] Sep, [facility] [address] [facility] [id number] [place] [address] Jun, [facility] [address] [id number] [place] 00587[address] Nov, [facility] [address] [id number] [place] [id number] Nov, [facility] [address] [id number] [place] [id number] Nov, [facility] [address] [id number] [place] [id number] Nov, [facility] [address] [id number] [place] [id number] Nov, [facility] [address] [id number] [place] [id number] Nov, [facility] [address] [id number] [place] [id number] Nov, [facility] [address] [id number] [place] [id number] Nov, [facility] [address] [id number] [place] [id number] Nov, [facility] [address] [id number] [place] [id number] Sep, [facility] [address] [id number] [place] [id number] Sep, [facility] [address] [id number] [place] [id number] Sep, [facility] [address] [id number] [place] [id number] Sep, [facility] [address] [facility] [id number] [place] [id number] August, [facility] [address] [facility] [id number] [place] [id number] August, [facility] [address] [facility] [id number] [place] [id number] August, [facility] [address] [facility] [id number] [place] [id number] August, [facility] [address] [facility] [id number] [place] [address] Sep, IMMUNIZATIONS No Known Immunizations SOCIAL HISTORY Never Assessed REASON FOR VISIT Refill request PLAN OF CARE VITAL SIGNS MEDICATIONS Medication Instructions Dosage Frequency Start Date End Date Duration Status Hydrocodone-Acetaminophen 7.5-325 MG Orally every 6 hrs PRN must last 28 days 1 tablet as needed Nov, 0 days Active RESULTS No Results PROCEDURES No Known [...]
--- OUTSIDE RECORDS SUMMARY | 2018-10-31 17:33 | XMS REPORT ---
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 Active 873380521 Problem Other chronic pain G89.29 Active 75064427 Problem Diabetes type 2, uncontrolled E11.65 Active 453214292 Problem Anaphylactic reaction to bee sting, accidental or unintentional, initial encounter T63.441A Active 957751855 Problem Skin ulcer of left lower leg, limited to breakdown of skin L97.921 Active 73434340 Problem Erectile dysfunction, unspecified erectile dysfunction type N52.9 Active 864547007 Problem Varicose veins of left lower extremity with ulcer other part of lower leg I83.028 Active 33404213 Problem 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 Active 595506891 Problem Phantom pain R52 Active 845346522 Problem Essential hypertension I10 Active 76101060 Problem DM neuro manif type II E11.49 Active 28909525 Problem Acquired absence of right leg below knee Z89.511 Active 713784979 Problem Cellulitis of left lower extremity L03.116 Active 366334778 Problem Acute pain of left shoulder M25.512 Active 79897888 Problem Mild intermittent asthma without complication J45.20 Active 609124304 Problem Reflux esophagitis K21.0 Active 695496248 Problem Obstructive sleep apnea syndrome G47.33 Active 27377319 Problem Hammertoe of left foot M20.42 Active 701660157 ALLERGIES Substance Reaction Event Type Date Status Victoza vomiting Drug Allergy Sep, Active Lopid vomiting Drug Allergy Sep, Active Cleocin vomiting Drug Allergy Sep, Active Cephalexin rash Drug Allergy Sep, Active ENCOUNTERS Encounter Location Date Diagnosis [facility] [address] [address] Dec, [place] [id number] [place] [id number] Dec, [address] [id number] Nov, Phantom pain R52 [address] [id number] Nov, Diabetes type 2, uncontrolled E11.65 and BMI 40.0-44.9, adult Z68.[address] [id number] Oct, Anaphylactic reaction to bee sting, accidental or unintentional, initial encounter T63.441A ; Pain in right shoulder M25.511 and Other chronic pain G89.29 [place] [id number] [place] [address] [id number] Oct, Diabetes type 2, uncontrolled E11.65 [place] [id number] [place] [address] [id number] Oct, Diabetes type 2, uncontrolled E11.65 and Cellulitis of left lower extremity L03.116 [place] [id number] [place] [address] [id number] Oct, Phantom pain R52 [facility] [address] [place] [id number] [place] [address] Sep, Onychomycosis B35.1 ; Impaired circulation of left leg I99.9 and DM neuro manif type II E11.49 [place] [id number] [place] [address] [id number] Sep, BMI 40.0-44.9, adult Z68.41 ; Skin ulcer of left lower leg, limited to breakdown of skin L97.921 ; Acute pain of left shoulder M25.512 ; DM neuro manif type II E11.49 ; Mild intermittent asthma without complication J45.20 and Phantom pain R52 [id number] [id number] Sep, Phantom pain R52 [facility] [place] [id number] [place] [address] [id number] August, Phantom pain R52 [facility] [place] [address] [place] [id number] [place] [address] [id number] August, Acquired absence of right leg below knee Z89.511 [facility] [address] [place] [id number] [place] [address] [id number] August, Acquired absence of right leg below knee Z89.511 [place] [address] [place] [id number] [place] [address] August, Diabetes type 2, uncontrolled E11.65 [place] [address] [place] [id number] [place] [address] August, [place] [address] [place] [id number] [place] [address] August, [facility] [address] [id number] August, BMI 40.0-44.9, adult Z68.41 ; 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 and Acquired absence of right leg below knee Z89.511 [facility] [address] [id number] [place] [address] August, [place] [id number] [place] [address] [id number] Jul, Skin ulcer of left lower leg, limited to breakdown of skin L97.921 [facility] 120 [facility] [id number] [place] [address] [id number] Jul, [id number] [place] [address] [id number] Jul, BMI 40.0-44.9, adult Z68.41 ; Skin ulcer of left lower leg, limited to breakdown of skin L97.921 and DM neuro manif type II E11.49 [place] [address] [id number] [address] Jul, [facility] [id number] [place] [address] [id number] Jul, [place] [id number] [place] [address] [id number] Jul, [facility] [id number] [place] [address] [id number] Jun, Erectile dysfunction, unspecified erectile dysfunction type N52.9 [place] [address] [place] [id number] [place] [address] Jun, [place] [id number] [place] [address] [id number] Jun, BMI 40.0-44.9, adult Z68.41 ; Diabetes type 2, uncontrolled E11.65 ; Phantom pain R52 ; Subluxation of right shoulder joint, sequela S43.001S and Erectile dysfunction, unspecified erectile dysfunction type N52.9 [place] [address] [place] [id number] [place] [address] Jun, DM neuro manif type II E11.49 ; Onychomycosis B35.1 and Hammertoe of left foot M20.42 [place] [address] [place] [id number] [place] [address] Jun, [address] [place] [address] [id number] Jun, DM neuro manif type II E11.49 [place] [address] [facility] [id number] [phone] Jun, DM neuro manif type II E11.49 [address] [place] [address] [id number] May, DM neuro manif type II E11.49 ; Venous insufficiency (chronic) (peripheral) I87.2 ; 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 ; Essential hypertension I10 and Phantom pain R52 [address] [place] [address] [id number] Apr, Diabetes type 2, uncontrolled E11.65 ; Acquired absence of right leg below knee Z89.511 ; Essential hypertension I10 ; Reflux esophagitis K21.0 and Phantom pain R52 [facility] [address] [id number] Apr, BMI 40.0-44.9, adult Z68.41 and Wheelchair bound Z99.3 [facility] [address] [id number] Mar, [address] [id number] Mar, BMI 40.0-44.9, adult Z68.41 ; Diabetes type 2, uncontrolled E11.65 ; Mild intermittent asthma without complication J45.20 ; Phantom pain R52 ; Reflux esophagitis K21.0 and Essential hypertension I10 [facility] [address] [id number] Feb, Phantom pain R52 [place] [address] [id number] Feb, Phantom pain R52 and Acute pain of left shoulder M25.512 [place] [address] [id number] Jan, Phantom pain R52 [place] [address] [id number] Jan, DM neuro manif type II E11.49 ; Cellulitis of left lower extremity L03.116 ; Obstructive sleep apnea syndrome G47.33 ; Thyroid disorder screen Z13.29 and Lipid screening Z13.220 [facility] [address] [place] [id number] [place] [address] [id number] Jan, [facility] [address] [place] [id number] [place] [address] [id number] Dec, DM neuro manif type II E11.49 ; Phantom pain R52 and Mild intermittent asthma without complication J45.20 [facility] [address] [place] [id number] [place] [address] [id number] Dec, 2016 Wound of left lower extremity, subsequent encounter S81.802D [place] [address] [id number] Nov, [facility] [address] [place] [address] Nov, [facility] [address] [place] [id number] [place] [address] [id number] Nov, DM neuro manif type II E11.49 ; Mild intermittent asthma without complication J45.20 ; Essential hypertension I10 and Phantom pain R52 [place] [id number] [place] [address] [id number] Oct, Phantom pain R52 [place] [id number] [place] [address] [id number] Sep, Phantom pain R52 ; DM neuro manif type II E11.49 and Essential hypertension I10 [place] [id number] [place] [address] [id number] August, DM neuro manif type II E11.49 ; Phantom pain R52 and Essential hypertension I10 [place] [id number] [place] [address] [id number] Jul, DM neuro manif type II E11.49 and Phantom pain R52 [facility] [id number] [place] [address] Jun, Onychomycosis B35.1 and DM neuro manif type II E11.49 [address] [place] [address] [id number] Jun, DM neuro manif type II E11.49 ; Phantom pain R52 ; Essential hypertension I10 and Diabetes with neurological manifestations, type II or unspecified type, not stated as uncontrolled 250.60 [facility] [address] [place] [address] [id number] Apr, DM neuro manif type II E11.49 ; Phantom pain R52 ; Essential hypertension I10 and Mild intermittent asthma without complication J45.20 [place] [id number] [place] [address] [id number] Apr, Need for follow up care after discharge from healthcare facility Z92.89 and Wound of right lower extremity, subsequent encounter S81.801D [place] [id number] [place] [address] [id number] Mar, Phantom pain R52 ; DM neuro manif type II E11.49 and Essential hypertension I10 [facility] [id number] [place] [address] [id number] Feb, DM neuro manif type II E11.49 ; Phantom pain R52 and Essential hypertension I10 [facility] [id number] [place] [address] [id number] Jan, Phantom pain R52 and DM neuro manif type II E11.49 [facility] [address] [place] [id number] [place] [address] [id number] Dec, [place] [id number] [place] [address] [id number] Dec, DM neuro manif type II E11.49 ; Phantom pain R52 ; Mild intermittent asthma without complication J45.20 and Essential hypertension I10 [facility] [address] [place] [id number] [address] Dec, Onychomycosis B35.1 ; Xerosis of skin L85.3 and DM neuro manif type II E11.49 [facility] [id number] [place] [address] [id number] Nov, Acquired absence of right leg below knee Z89.511 [place] [address] [place] [id number] [place] [address] [id number] Nov, [address] [place] [address] [id number] Nov, [place] [id number] [place] [address] [id number] Sep, [place] [id number] [place] [address] [id number] Sep, Diabetes type 2, uncontrolled E11.65 ; Leg wound, left, initial encounter S81.802A and Erectile disorder due to medical condition in male N52.1 [facility] [id number] [place] [address] [id number] Sep, [place] [id number] [place] [address] [id number] Jul, [place] [id number] [place] [address] [id number] Jul, 2015 [facility] [id number] [place] [address] [id number] Jul, [place] [id number] [place] [address] [id number] Jul, 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 ; Varicose vein of leg I83.93 ; Diabetes type 2, uncontrolled E11.65 and Chronic pain G89.29 [facility] [address] [place] [id number] [place] [address] [id number] Jul, [place] [id number] [place] [address] [id number] Jul, Diabetes with neurological manifestations, type II or unspecified type, not stated as uncontrolled 250.60 [place] [id number] [place] [address] [id number] Jul, [place] [id number] [place] [address] [id number] Jul, [place] [id number] [place] [address] [id number] Jun, Diabetes type 2, uncontrolled E11.65 [address] [place] [address] [id number] Jun, Pain in right knee M25.561 ; Pain in left knee M25.562 ; Other chronic pain G89.29 and Primary osteoarthritis of both knees M17.0 [place] [id number] [place] [address] [id number] Apr, Diabetes type 2, uncontrolled E11.65 ; Puncture wound of foot, left, initial encounter S91.332A and Encounter for immunization Z23 [address] [place] [address] [id number] Apr, [place] [id number] [place] [address] [id number] Apr, [place] [id number] [place] [address] [id number] Feb, Acquired absence of right leg below knee Z89.511 [place] [id number] [place] [address] [id number] Feb, Acquired absence of right leg below knee Z89.511 [facility] [id number] [place] [address] [id number] Feb, Diabetes type 2, uncontrolled E11.65 and Acquired absence of right leg below knee Z89.511 [facility] [id number] [place] [address] [id number] Jan, [facility] [address] [place] [id number] [place] [address] [id number] Jan, [facility] [address], [place] [address] Jan, [place] [id number] [place] [address] [id number] Jan, [facility] [address] [place] [id number] [place] [address] [id number] Dec, [place] [address] [place] [id number] [place] [address] [id number] Dec, Diabetes with neurological manifestations, type II or unspecified type, not stated as uncontrolled 250.60 and Open wound of foot except toe(s) alone, without mention of complication 892.0 [place] [address] [place] [id number] [place] [address] [id number] Dec, [place] [address] [place] [id number] [place] [address] [id number] Nov, [place] [address] [place] [id number] [place] [address] [id number] Nov, Cellulitis of foot 682.7 [facility] [address] [place] [id number] [place] [address] [id number] Oct, [place] [id number] [place] [address] [id number] Oct, Corneal abrasion 918.1 [place] [id number] [place] [address] [id number] Oct, [facility] [id number] [place] [address] [id number] Oct, [facility] [address] [place] [id number] [place] [address] [id number] August, [facility] [place] [address] [facility] [id number][place] [id number] August, [facility] [address] [facility] [id number][place] [id number] August, [facility] [address] [facility] [id number][place] [id number] August, [facility] [address] [facility] [id number][place] [id number] August, Diabetes mellitus without mention of complication, type II or unspecified type, not stated as uncontrolled 250.00 [facility] [address] [facility] [id number], [place] [address] Jul, [facility] [address] [place] [id number] [place] [address] Jul, [facility] [address] [place] [id number] [place] [address] Apr, [facility] [address], [place] [address] Apr, [facility] [address], [place] [address] Mar, [facility] [address], [place] [address] Mar, [facility] [address], [place] [address] Mar, [facility] [place] [facility] [address] [place] [id number], [place] [address] Mar, [facility] [address] [place] [id number], [place] [address] Mar, [facility] [address], [place] [address] Mar, [facility] [address] [place] [id number] [id number] Mar, [facility] [address], [place] [address] Mar, [facility] [place] [facility] [address] [facility] [id number], [place] [address] Mar, [facility] [place] [facility] [address] [facility] [id number], [place] [address] Mar, [facility] [place] [facility] [address] [facility] [id number], [place] [address] Mar, [facility] [place] [facility] [address] [facility] [id number], [place] [address] Mar, [facility] [place] [facility] [address] [facility] [id number], [place] [address] Mar, [facility] [place] [address] [place] [id number][place] [id number] Mar, [facility] [place] [facility] [address] [place] [address] [id number], [place] [address] Jan, [facility] [address] [place] [id number][place] [id number] Jan, [facility] [place] [facility] [address] [facility] [id number], [place] [address] Jan, [facility] [place] [facility] [address] [place] [id number], [place] [address] Jan, [facility] [place] [facility] [address] [facility] [id number], [place] [address] Jan, [facility] [place] [address] [facility] [id number][place] [address] Jan, [facility] [place] [facility] [address] [facility] [id number], [place] [address] Dec, [facility] [place] [address] [facility] [id number][place] [id number] Nov, [facility] [place] [facility] [address] [facility] [id number], [place] [address] Nov, [facility] [address] [place] [id number][place] [id number] Oct, [facility] [place] [facility] [address] [id number] [place] [address] Oct, [facility] [place] [address] [facility] [id number] [place] [id number] Oct, [facility] [place] [facility] [address] [id number] [place] [address] Oct, [facility] [place] [facility] [address] [id number] [place] [address] August, [facility] [place] [facility] [address] [id number] [place] [address] August, [facility] [place] [facility] [address] [id number] [place] [address] August, [facility] [place] [facility] [address] [facility] [id number] [place] [address] August, [facility] [place] [address] [facility] [id number][place] [id number] Jul, [facility] [place] [facility] [address] [facility] [id number] [place] [address] Jul, [facility] [place] [address] [facility] [id number] [place] [id number] Jun, [facility] [place] [facility] [address] [facility] [id number], [place] [address] Jun, [facility] [place] [address] [id number] [place] [id number] Jun, [facility] [place] [facility] [address] [facility] [id number] [place] [address] Jun, [facility] [place] [address] [id number] [place] [id number] Jun, [facility] [place] [facility] [address] [facility] [id number] [place] [address] Jun, [facility] [place] [address] [facility] [id number] [place] [id number] Jun, [facility] [place] [facility] [address] [facility] [id number], [place] [address] Jun, [facility] [place] [address] [facility] [id number] [place] [id number] May, [facility] [place] [facility] [address] [facility] [id number], [place] [address] May, [facility] [place] [address] [facility] [id number] [place] [id number] May, [facility] [place] [facility] [address] [facility] [id number], [place] [address] May, [facility] [place] [facility] [address] [facility] [id number], [place] [address] May, [facility] [place] [facility] [address] [id number], [place] [address] May, [facility] [place] [id number], [place] [id number] May, [facility] [place] [facility] [address], [place] [address] May, [facility] [address] [place] [id number][place] [id number] May, [facility] [place] [facility] [id number], [place] [address] May, [facility] [place] [facility] [address], [place] [address] Apr, [facility] [place] [facility] [address] [facility] [id number], [place] [address] Apr, [facility] [place] [address] [facility] [id number], [place] [id number] Apr, [facility] [place] [facility] [address] [facility] [id number], [place] [address] Apr, [facility] [place] [address] [facility] [id number], [place] [id number] Sep, [facility] [place] [facility] [address] [id number], [place] [address] Sep, [facility] [place] [address] [id number] [place] [id number] Sep, [facility] [place] [address] [id number] [place] [id number] Sep, [facility] [address] [id number] [place] [address] Jun, [facility] [place] [address] [id number] [place] [id number] Nov, [facility] [place] [address] [id number] [place] [id number] Nov, [facility] [place] [address] [id number] [place] [id number] Nov, [facility] [place] [address] [id number] [place] [id number] Nov, [facility] [place] [address] [id number] [place] [id number] Nov, [facility] [place] [address] [id number] [place] [id number] Nov, [facility] [place] [address] [id number] [place] [id number] Nov, [facility] [place] [address] [id number] [place] [id number] Nov, [facility] [place] [address] [id number] [place] [id number] Nov, [facility] [place] [address] [id number] [place] [id number] Sep, [facility] [place] [address] [id number] [place] [id number] Sep, [facility] [place] [address] [id number] [place] [id number] Sep, [facility] [place] [address] [id number] [place] [id number] Sep, [facility] [place] [address] [id number] [place] [id number] August, [facility] [place] [address] [id number] [place] [id number] August, [facility] [place] [address] [facility] [id number] [place] [id number] August, [facility] [address] [facility] [id number] [place] [id number] August, [facility] [address] [facility] [id number] [place] [address] Sep, IMMUNIZATIONS No Known Immunizations SOCIAL HISTORY Never Assessed REASON FOR VISIT 3 mo DM f/u PLAN OF CARE Activity Details Follow Up 3 Months Reason: VITAL SIGNS Height 72 in 2017-09-24 Blood pressure systolic 138 mmHg 2017-09-24 Blood pressure diastolic 86 mmHg 2017-09-24 MEDICATIONS Medication Instructions Dosage Frequency Start Date End Date Duration Status Zoloft 50 mg Orally Once a day 1 tablet 24h Unknown Farxiga 5 mg Orally Once a day in the morning 1 tablet Unknown Ibuprofen 800 MG Orally Three times a day 1 tablet with food or milk as needed 8h Feb, Unknown Diovan HCT 160-12.5 MG Orally Once a day take 1 tablet 24h Unknown Blood Glucose Test Strip Test Strips as directed 8h Dec, 30 days Unknown Wheelchair - as directed Apr, lifetime Unknown Walker - as directed Apr, Unknown BD Pen Needle Nedra U/F 32G X 4 MM as directed 8h Sep, Unknown Omeprazole 40 MG Orally Once a day 1 capsule 24h 30 days Unknown Lancets - as directed Mar, Unknown Amlodipine Besylate 10 mg Orally Once a day 1 tablet 24h Unknown ProAir HFA 108 (90 Base) MCG/ACT Inhalation every 4-6 hours as needed 2 puffs Jul, Unknown Silvadene 1 % Externally Once a day 1 application to affected area 24h Jul, Unknown NovoLog 100 UNIT/ML Subcutaneous 3 times a day, E11.65 60 units Jun, Unknown Metformin HCl 1000 MG Orally Twice a day 1 tablet with meals 12h Unknown Gemfibrozil 600 MG Orally twice a day take 1 tablet 12h Unknown Singulair 10 mg Orally Once a day 1 tablet in the evening 24h Unknown Knee Compression Sleeve/L/XL - sleeve and liner August, Unknown Tresiba FlexTouch 200 UNIT/ML Subcutaneous at bedtime 156 units Sep, Unknown Gabapentin 600 MG Orally Three times a day 1 capsule 1 tab qhs x 5 d then bid x 5 d then tid 8h Dec, Unknown Hydrocodone-Acetaminophen 7.5-325 MG Orally every 6 hrs PRN must last 1 m 1 tablet as needed Sep, 0 days Unknown Blood Pressure Kit ... as directed Mar, Unknown BD Insulin Syringe 30G X 1/2 subcutaneously 5 times daily as directed Dec, Unknown Pioglitazone HCl 30 MG DX- E11.65 Once a day 1 tablet 24h Jun, Unknown Potassium Chloride 20 MEQ Orally Once a day 1 tablet 24h Dec, Unknown Sildenafil Citrate 20 mg Orally do not take more than 1-2 tabs in a 24 hour period 1-2 tablets prn for sexual activity Jun, Unknown Leg Prosthesis N/A DON: 99 as directed Right below knee definitive Nov, Unknown RESULTS No Results PROCEDURES Procedure Date Ordered Result Body Site [facility] VISIT ESTABLISHED PATIENT September 24, 2017 INSTRUCTIONS MEDICATIONS ADMINISTERED No Known Medications [...] 11/2014 Surgical History amputation right mid-calf/foot at [facility] 01/2015 Hospitalization History [facility] post op infection to right foot, amputations to mid-calf 01/2015 Hospitalization History [facility] post-op 7 days, discharges with home health -02/2015 Hospitalization History [facility] ER visit for sore on right stump 04/2016 Hospitalization History [facility] wound on left lower leg, culture +for Strep G 12/2016
--- OUTSIDE RECORDS SUMMARY | 2018-10-31 17:33 | XMS REPORT ---
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 Active 730691104 Problem Erectile dysfunction, unspecified erectile dysfunction type N52.9 Active 325133339 Problem Venous insufficiency (chronic) (peripheral) I87.2 Active 44107601 Problem Major depressive disorder in partial remission, unspecified whether recurrent F32.4 Active 50193792 Problem DM neuro manif type II E11.49 Active 85165254 Problem Anaphylactic reaction to bee sting, accidental or unintentional, initial encounter T63.441A Active 110746626 Problem Diabetes type 2, uncontrolled E11.65 Active 622413174 Problem 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 Active 369176865 Problem Skin ulcer of left lower leg, limited to breakdown of skin L97.921 Active 70672424 Problem Other chronic pain G89.29 Active 46037651 Problem Varicose veins of left lower extremity with ulcer other part of lower leg I83.028 Active 32412064 Problem Essential hypertension I10 Active 94352006 Problem Mild intermittent asthma without complication J45.20 Active 296235676 Problem Acquired absence of right leg below knee Z89.511 Active 417269671 Problem Phantom pain R52 Active 040899270 Problem Acute pain of left shoulder M25.512 Active 85958023 Problem Reflux esophagitis K21.0 Active 666665033 Problem Obstructive sleep apnea syndrome G47.33 Active 91066462 Problem Hammertoe of left foot M20.42 Active 084029202 Problem Cellulitis of left lower extremity L03.116 Active 327208894 Problem Wheelchair bound Z99.3 Active [id number] ALLERGIES No Information ENCOUNTERS Encounter Location Date Diagnosis [id number] [place] [address] [id number] Jan, [facility] [address] [address] Dec, [place] [id number] [place] [address] [id number] Dec, Diabetes type 2, uncontrolled E11.65 ; Essential hypertension I10 ; Reflux esophagitis K21.0 ; Major depressive disorder in partial remission, unspecified whether recurrent F32.4 ; Phantom pain R52 and BMI 40.0-44.9, adult Z68.[address] [id number] Nov, Phantom pain R52 [address] [id number] Nov, Diabetes type 2, uncontrolled E11.65 and BMI 40.0-44.9, adult Z68.[address] [id number] Oct, Anaphylactic reaction to bee sting, accidental or unintentional, initial encounter T63.441A ; Pain in right shoulder M25.511 and Other chronic pain G89.29 [place] [id number] [place] [address] [id number] Oct, Diabetes type 2, uncontrolled E11.[address] [id number] Oct, Diabetes type 2, uncontrolled E11.65 and Cellulitis of left lower extremity L03.116 [place] [id number] [place] [address] [id number] Oct, Phantom pain R52 [facility] [address] [place] [address] 15 Sep, 2017 Onychomycosis B35.1 ; Impaired circulation of left leg I99.9 and DM neuro manif type II E11.49 [place] [id number] [place] [address] [id number] Sep, BMI 40.0-44.9, adult Z68.41 ; Skin ulcer of left lower leg, limited to breakdown of skin L97.921 ; Acute pain of left shoulder M25.512 ; DM neuro manif type II E11.49 ; Mild intermittent asthma without complication J45.20 and Phantom pain R52 [facility] [id number] [place] [address] [id number] Sep, Phantom pain R52 [facility] [id number] [place] [address] [id number] August, Phantom pain R52 [facility] [address] [id number] August, Acquired absence of right leg below knee Z89.511 [place] [address] [id number] August, Acquired absence of right leg below knee Z89.511 [place] [address] [place] [id number] [place] [address] August, Diabetes type 2, uncontrolled E11.65 [place] [address] [place] [id number] [place] [address] August, [place] [address] [address] August, [place] [id number] [place] [address] [id number] August, BMI 40.0-44.9, adult Z68.41 ; 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 and Acquired absence of right leg below knee Z89.511 [facility] [address] [id number] [place] [address] August, [facility] [address] [place] [id number] [place] [address] [id number] Jul, Skin ulcer of left lower leg, limited to breakdown of skin L97.921 [facility] [id number] [id number] Jul, [address] [place] [address] [id number] Jul, BMI 40.0-44.9, adult Z68.41 ; Skin ulcer of left lower leg, limited to breakdown of skin L97.921 and DM neuro manif type II E11.49 [place] [address] [place] [id number] [place] [address] Jul, [facility] [address] [place] [address] [id number] Jul, [place] [id number] [place] [address] [id number] Jul, [facility] [id number] [place] [address] [id number] Jun, Erectile dysfunction, unspecified erectile dysfunction type N52.9 [place] [address] [place] [id number] [place] [address] Jun, [place] [id number] [place] [address] [id number] Jun, BMI 40.0-44.9, adult Z68.41 ; Diabetes type 2, uncontrolled E11.65 ; Phantom pain R52 ; Subluxation of right shoulder joint, sequela S43.001S and Erectile dysfunction, unspecified erectile dysfunction type N52.9 [place] [address] [place] [id number] [place] [address] Jun, DM neuro manif type II E11.49 ; Onychomycosis B35.1 and Hammertoe of left foot M20.42 [place] [address] [place] [id number] [place] [address] Jun, [address] [place] [address] [id number] Jun, DM neuro manif type II E11.[address] [place] [place] [address] [id number] [id number] Jun, DM neuro manif type II E11.49 [facility] [address] [id number] May, DM neuro manif type II E11.49 ; Venous insufficiency (chronic) (peripheral) I87.2 ; 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 ; Essential hypertension I10 and Phantom pain R52 [facility] [id number] [place] [address] [id number] Apr, Diabetes type 2, uncontrolled E11.65 ; Acquired absence of right leg below knee Z89.511 ; Essential hypertension I10 ; Reflux esophagitis K21.0 and Phantom pain R52 [place] [address] [id number] Apr, BMI 40.0-44.9, adult Z68.41 and Wheelchair bound Z99.[address] [id number] Mar, [address] [id number] Mar, BMI 40.0-44.9, adult Z68.41 ; Diabetes type 2, uncontrolled E11.65 ; Mild intermittent asthma without complication J45.20 ; Phantom pain R52 ; Reflux esophagitis K21.0 and Essential hypertension I10 [facility] [id number] [place] [address] [id number] Feb, Phantom pain R52 [place] [address] [id number] Feb, Phantom pain R52 and Acute pain of left shoulder M25.512 [place] [id number] [place] [address] [id number] Jan, Phantom pain R52 [place] [address] [id number] [place] [address] [id number] Jan, DM neuro manif type II E11.49 ; Cellulitis of left lower extremity L03.116 ; Obstructive sleep apnea syndrome G47.33 ; Thyroid disorder screen Z13.29 and Lipid screening Z13.220 [place] [address] [id number] [place] [address] [id number] Jan, [place] [id number] [place] [address] [id number] Dec, DM neuro manif type II E11.49 ; Phantom pain R52 and Mild intermittent asthma without complication J45.20 [facility] [id number] [place] [address] [id number] Dec, Wound of left lower extremity, subsequent encounter S81.802D [facility] [address] [id number] Nov, [facility] [address] [place] [id number] [place] [address] Nov, [facility] [address] [id number] Nov, DM neuro manif type II E11.49 ; Mild intermittent asthma without complication J45.20 ; Essential hypertension I10 and Phantom pain R52 [facility] [address] [id number] Oct, Phantom pain R52 [facility] [address] [id number] Sep, Phantom pain R52 ; DM neuro manif type II E11.49 and Essential hypertension I10 [facility] [address] [place] [id number] [place] [address] [id number] August, DM neuro manif type II E11.49 ; Phantom pain R52 and Essential hypertension I10 [address] [id number] Jul, DM neuro manif type II E11.49 and Phantom pain R52 [facility] [address] [place] [id number] [place] [address] Jun, Onychomycosis B35.1 and DM neuro manif type II E11.49 [facility] [id number] [place] [address] [id number] Jun, DM neuro manif type II E11.49 ; Phantom pain R52 ; Essential hypertension I10 and Diabetes with neurological manifestations, type II or unspecified type, not stated as uncontrolled 250.60 [facility] [id number] [place] [address] [id number] Apr, DM neuro manif type II E11.49 ; Phantom pain R52 ; Essential hypertension I10 and Mild intermittent asthma without complication J45.20 [facility] [id number] [place] [address] [id number] Apr, Need for follow up care after discharge from healthcare facility Z92.89 and Wound of right lower extremity, subsequent encounter S81.801D [facility] [id number] [place] [address] [id number] Mar, Phantom pain R52 ; DM neuro manif type II E11.49 and Essential hypertension I10 [facility] [id number] [place] [address] [id number] Feb, DM neuro manif type II E11.49 ; Phantom pain R52 and Essential hypertension I10 [facility] [id number] [place] [address] [id number] Jan, Phantom pain R52 and DM neuro manif type II E11.49 [place] [id number] [place] [address] [id number] Dec, [place] [id number] [place] [address] [id number] Dec, DM neuro manif type II E11.49 ; Phantom pain R52 ; Mild intermittent asthma without complication J45.20 and Essential hypertension I10 [facility] [address] [address] Dec, Onychomycosis B35.1 ; Xerosis of skin L85.3 and DM neuro manif type II E11.49 [facility] [address] [place] [address] [id number] Nov, Acquired absence of right leg below knee Z89.511 [place] [id number] [place] [address] [id number] Nov, [place] [id number] [place] [address] [id number] Nov, [place] [id number] [place] [address] [id number] Sep, [place] [id number] [place] [address] [id number] Sep, Diabetes type 2, uncontrolled E11.65 ; Leg wound, left, initial encounter S81.802A and Erectile disorder due to medical condition in male N52.1 [place] [id number] [place] [address] [id number] Sep, [facility] [id number] [id number] Jul, [facility] [id number] [place] [address] [id number] Jul, [facility] [id number] [place] [address] [id number] Jul, [facility] [id number] [place] [address] [id number] Jul, 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 ; Varicose vein of leg I83.93 ; Diabetes type 2, uncontrolled E11.65 and Chronic pain G89.29 [facility] [id number] [place] [address] [id number] Jul, [facility] [id number] [place] [address] [id number] Jul, Diabetes with neurological manifestations, type II or unspecified type, not stated as uncontrolled 250.60 [facility] [id number] [place] [address] [id number] Jul, [facility] [id number] [place] [address] [id number] Jul, [facility] [id number] [place] [address] [id number] Jun, Diabetes type 2, uncontrolled E11.65 [facility] [id number] [place] [address] [id number] Jun, Pain in right knee M25.561 ; Pain in left knee M25.562 ; Other chronic pain G89.29 and Primary osteoarthritis of both knees M17.0 [facility] [id number] [place] [address] [id number] Apr, Diabetes type 2, uncontrolled E11.65 ; Puncture wound of foot, left, initial encounter S91.332A and Encounter for immunization Z23 [facility] [id number] [id number] Apr, [facility] [id number] [place] [address] [id number] Apr, [facility] [id number] [place] [address] [id number] Feb, Acquired absence of right leg below knee Z89.511 [facility] [id number] [place] [address] [id number] Feb, Acquired absence of right leg below knee Z89.511 [facility] [id number] [place] [address] [id number] Feb, Diabetes type 2, uncontrolled E11.65 and Acquired absence of right leg below knee Z89.511 [facility] [id number] [place] [address] [id number] Jan, [facility] [address] [place] [id number] [place] [address] [id number] Jan, [facility] [address] [place] [id number] [place] [address] Jan, [address] [place] [address] [id number] Jan, Don [facility] [address] [id number] Dec, [place] [id number] [place] [address] [id number] Dec, Diabetes with neurological manifestations, type II or unspecified type, not stated as uncontrolled 250.60 and Open wound of foot except toe(s) alone, without mention of complication 892.[address] [place] [address] [id number] Dec, [place] [id number] [place] [address] [id number] Nov, [place] [id number] [place] [address] [id number] Nov, Cellulitis of foot 682.7 [place] [id number] [place] [address] [id number] Oct, [place] [id number] [place] [address] [id number] Oct, Corneal abrasion 918.1 [place] [id number] [place] [address] [id number] Oct, [facility] [address] [id number] [id number] Oct, [facility] [address] [facility] [id number][place] [id number] August, [facility] [address] [id number], [place] [id number] August, [facility] [address] [id number][place] [id number] August, [facility] [address] [place] [id number][place] [id number] August, [facility] [address] [place] [address] [id number][place] [id number] August, Diabetes mellitus without mention of complication, type II or unspecified type, not stated as uncontrolled 250.00 [facility] [address] [place] [address] [id number] [place] [address] Jul, [facility] [address] [place] [address] [id number] [place] [address] Jul, [facility] [address] [place] [address] [id number] [place] [address] Apr, [facility] [address] [place] [address] [id number] [place] [address] Apr, [facility] [address] [place] [address] [id number] [place] [address] Mar, [facility] [address] [place] [address] [id number] [place] [address] Mar, [facility] [address] [place] [id number] [address] Mar, [facility] [address] [place] [address] [id number] [place] [address] Mar, [facility] [address] [place] [address] [id number] [place] [address] Mar, [facility] [address] [place] [address] [id number] [place] [address] Mar, [facility] [address] [facility] [id number], [place] [id number] Mar, [facility] [place] [facility] [address] [facility] [id number] [place] [address] Mar, [facility] [place] [facility] [address] [facility] [id number] [place] [address] Mar, [facility] [place] [facility] [address] [facility] [id number] [place] [address] Mar, [facility] [place] [facility] [address] [facility] [id number] [place] [address] Mar, [facility] [place] [facility] [address] [facility] [id number] [place] [address] Mar, [facility] [place] [facility] [address] [facility] [id number] [place] [address] Mar, [facility] [address] [facility] [id number][place] [id number] Mar, [facility] [place] [facility] [address] [facility] [id number], [place] [address] Jan, [facility] [address] [facility] [id number][place] [id number] Jan, [facility] [place] [facility] [address] [facility] [id number], [place] [address] Jan, [facility] [place] [facility] [address] [facility] [id number], [place] [address] Jan, [facility] [place] [facility] [address] [facility] [id number], [place] [address] Jan, [facility] [address] [facility] [id number][place] [id number] Jan, [facility] [place] [facility] [address] [facility] [id number], [place] [address] Dec, [facility] [address] [facility] [id number], [place] [id number] Nov, [facility] [place] [facility] [address] [id number] [place] [address] Nov, [facility] [address] [id number] [place] [id number] Oct, [facility] [place] [facility] [address] [id number] [place] [address] Oct, [facility] [address] [id number] [place] [id number] Oct, [facility] [place] [facility] [address] [id number] [place] [address] Oct, [facility] [place] [facility] [address] [id number] [place] [address] August, [facility] [place] [facility] [address] [facility] [id number] [place] [address] August, [facility] [place] [facility] [address] [facility] [id number] [place] [address] August, [facility] [place] [facility] [address] [facility] [id number] [place] [address] August, [facility] [address] [facility] [id number] [place] [id number] Jul, [facility] [place] [facility] [address] [facility] [id number] [place] [address] Jul, [facility] [address] [facility] [id number][place] [id number] Jun, [facility] [place] [facility] [address] [facility] [id number], [place] [address] Jun, [facility] [address] [id number] [place] [id number] Jun, [facility] [place] [facility] [address] [facility] [id number] [place] [address] Jun, [facility] [address] [id number] [place] [id number] Jun, [facility] [place] [facility] [address] [facility] [id number], [place] [address] Jun, [facility] [address] [id number] [place] [id number] Jun, [facility] [place] [facility] [address] [facility] [id number] [place] [address] Jun, [facility] [address] [id number] [place] [id number] May, [facility] [place] [facility] [address] [facility] [id number], [place] [address] May, [facility] [address] [id number] [place] [id number] May, [facility] [place] [facility] [address] [facility] [id number] [place] [address] May, [facility] [place] [facility] [address] [facility] [id number] [place] [address] May, [facility] [place] [facility] [address] [facility] [id number], [place] [address] May, [facility] [address] [facility] [id number] [place] [id number] May, [facility] [place] [facility] [address] [facility] [id number], [place] [address] May, [facility] [address] [facility] [id number], [place] [id number] May, [facility] [place] [facility] [address] [facility] [id number], [place] [address] May, [facility] [place] [facility] [address] [facility] [id number], [place] [address] Apr, [facility] [place] [facility] [address] [facility] [id number], [place] [address] Apr, [facility] [address] [facility] [id number] [place] [id number] Apr, [facility] [place] [facility] [address] [facility] [id number], [place] [address] Apr, [facility] [address] [id number] [place] [address] Sep, [facility] [address] [facility] [id number] [place] [address] Sep, [facility] [address] [id number] [place] [id number] Sep, [facility] [address] [id number] [place] [id number] Sep, [facility] [address] [facility] [id number] [place] [address] Jun, [facility] [address] [id number] [place] [id number] Nov, [facility] [address] [id number] [place] [id number] Nov, [facility] [address] [id number] [place] [id number] Nov, [facility] [address] [id number] [place] [id number] Nov, [facility] [address] [id number] [place] [id number] Nov, [facility] [address] [id number] [place] [id number] Nov, [facility] [address] [id number] [place] [id number] Nov, [facility] [address] [id number] [place] [id number] Nov, [facility] [address] [id number] [place] [id number] Nov, [facility] [address] [id number] [place] [id number] Sep, [facility] [address] [id number] [place] [id number] Sep, [facility] [address] [id number] [place] [id number] Sep, [facility] [address] [id number] [place] [id number] Sep, [facility] [address] [facility] [id number] [place] [id number] August, [facility] [address] [facility] [id number] [place] [id number] August, [facility] [address] [facility] [id number] [place] [id number] August, [facility] [address] [facility] [id number] [place] [id number] August, [facility] [address] [facility] [id number] [place] [address] Sep, IMMUNIZATIONS No Known Immunizations SOCIAL HISTORY Never Assessed REASON FOR VISIT med refill PLAN OF CARE VITAL SIGNS MEDICATIONS Medication Instructions Dosage Frequency Start Date End Date Duration Status Tresiba FlexTouch 200 UNIT/ML Subcutaneous at bedtime [...] 11/2014 Surgical History amputation right mid-calf/foot at [facility] 01/2015 Hospitalization History [facility] post op infection to right foot, amputations to mid-calf 01/2015 Hospitalization History [facility] post-op 7 days, discharges with home health -02/2015 Hospitalization History [facility] ER visit for sore on right stump 04/2016 Hospitalization History [facility] wound on left lower leg, culture +for Strep G 12/2016
--- OUTSIDE RECORDS SUMMARY | 2018-10-31 17:34 | XMS REPORT ---
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 Active 501613158 Problem Other chronic pain G89.29 Active 97961460 Problem Diabetes type 2, uncontrolled E11.65 Active 012779469 Problem Anaphylactic reaction to bee sting, accidental or unintentional, initial encounter T63.441A Active 203211420 Problem Skin ulcer of left lower leg, limited to breakdown of skin L97.921 Active 44772729 Problem Erectile dysfunction, unspecified erectile dysfunction type N52.9 Active 260009456 Problem Varicose veins of left lower extremity with ulcer other part of lower leg I83.028 Active 96586950 Problem 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 Active 645502325 Problem Phantom pain R52 Active 311923547 Problem Essential hypertension I10 Active 41838708 Problem DM neuro manif type II E11.49 Active 13903068 Problem Acquired absence of right leg below knee Z89.511 Active 722246158 Problem Cellulitis of left lower extremity L03.116 Active 468162206 Problem Acute pain of left shoulder M25.512 Active 12754839 Problem Mild intermittent asthma without complication J45.20 Active 451418739 Problem Reflux esophagitis K21.0 Active 652551459 Problem Obstructive sleep apnea syndrome G47.33 Active 96503568 Problem Hammertoe of left foot M20.42 Active 124161678 ALLERGIES No Information ENCOUNTERS Encounter Location Date Diagnosis [facility] [address] [facility] [id number], [place] [address] Dec, [facility] [id number] [id number] Dec, [facility] [id number] [place] [address] [id number] Nov, Phantom pain R52 [facility] [id number] [place] [address] [id number] Nov, Diabetes type 2, uncontrolled E11.65 and BMI 40.0-44.9, adult Z68.41 [facility] [id number] [place] [address] [id number] Oct, Anaphylactic reaction to bee sting, accidental or unintentional, initial encounter T63.441A ; Pain in right shoulder M25.511 and Other chronic pain G89.29 [address] [place] [address] [id number] Oct, Diabetes type 2, uncontrolled E11.65 [place] [id number] [place] [address] [id number] Oct, Diabetes type 2, uncontrolled E11.65 and Cellulitis of left lower extremity L03.116 [address] [id number] [place] [address] [id number] Oct, Phantom pain R52 [facility] [address]00565[address], [place] [address] Sep, Onychomycosis B35.1 ; Impaired circulation of left leg I99.9 and DM neuro manif type II E11.49 [address] [place] [address] [id number] Sep, BMI 40.0-44.9, adult Z68.41 ; Skin ulcer of left lower leg, limited to breakdown of skin L97.921 ; Acute pain of left shoulder M25.512 ; DM neuro manif type II E11.49 ; Mild intermittent asthma without complication J45.20 and Phantom pain R52 [address] [place] [address] [id number] Sep, Phantom pain R52 [place] [id number] [place] [address] [id number] August, Phantom pain R52 [facility] [id number], [place] [id number] August, Acquired absence of right leg below knee Z89.511 [place] [id number][place] [phone] August, Acquired absence of right leg below knee Z89.511 [place] [address] [address] August, Diabetes type 2, uncontrolled E11.65 [place] [address] [id number] [place] [address] August, [place] [address] [address] August, [id number] [place] [address] [id number] August, BMI 40.0-44.9, adult Z68.41 ; 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 and Acquired absence of right leg below knee Z89.511 [facility] [address] [id number] [place] [address] August, [place] [id number] [place] [address] [id number] Jul, Skin ulcer of left lower leg, limited to breakdown of skin L97.921 [place] [id number] [place] [address] [id number] Jul, [address] [place] [address] [id number] Jul, BMI 40.0-44.9, adult Z68.41 ; Skin ulcer of left lower leg, limited to breakdown of skin L97.921 and DM neuro manif type II E11.49 [place] [address]00565100[place], [place] [address] Jul, [place] [id number] [place] [address] [id number] Jul, [id number] [id number] Jul, [address] [place] [address] [id number] Jun, Erectile dysfunction, unspecified erectile dysfunction type N52.9 [place] [address]00565100[place], [place] [address] Jun, [address] [place] [address] [id number] Jun, BMI 40.0-44.9, adult Z68.41 ; Diabetes type 2, uncontrolled E11.65 ; Phantom pain R52 ; Subluxation of right shoulder joint, sequela S43.001S and Erectile dysfunction, unspecified erectile dysfunction type N52.9 [place] [address] [place] [address] Jun, DM neuro manif type II E11.49 ; Onychomycosis B35.1 and Hammertoe of left foot M20.42 [place] [address]00565100[place], [place] [address] Jun, [id number] [place] [address] [id number] Jun, DM neuro manif type II E11.[address] [id number] [phone] Jun, DM neuro manif type II E11.49 [address] [place] [address] [id number] May, DM neuro manif type II E11.49 ; Venous insufficiency (chronic) (peripheral) I87.2 ; 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 ; Essential hypertension I10 and Phantom pain R52 [address] [place] [address] [id number] Apr, Diabetes type 2, uncontrolled E11.65 ; Acquired absence of right leg below knee Z89.511 ; Essential hypertension I10 ; Reflux esophagitis K21.0 and Phantom pain R52 [place] [id number] [place] [address] [id number] Apr, BMI 40.0-44.9, adult Z68.41 and Wheelchair bound Z99.3 [facility] [id number] [place] [address] [id number] Mar, [facility] [id number] [place] [address] [id number] Mar, BMI 40.0-44.9, adult Z68.41 ; Diabetes type 2, uncontrolled E11.65 ; Mild intermittent asthma without complication J45.20 ; Phantom pain R52 ; Reflux esophagitis K21.0 and Essential hypertension I10 [place] [id number] [place] [address] [id number] Feb, Phantom pain R52 [place] [id number] [place] [address] [id number] Feb, Phantom pain R52 and Acute pain of left shoulder M25.512 [place] [id number] [place] [address] [id number] Jan, Phantom pain R52 [facility] [id number] [place] [address] [id number] Jan, DM neuro manif type II E11.49 ; Cellulitis of left lower extremity L03.116 ; Obstructive sleep apnea syndrome G47.33 ; Thyroid disorder screen Z13.29 and Lipid screening Z13.220 [facility] [address] [place] [address] [id number] Jan, [place] [id number] [place] [address] [id number] Dec, DM neuro manif type II E11.49 ; Phantom pain R52 and Mild intermittent asthma without complication J45.20 [facility] [address] [place] [address] [id number] Dec, Wound of left lower extremity, subsequent encounter S81.802D [facility] [address] [place] [address] [id number] Nov, [facility] [id number] [place] [address] Nov, [id number] [phone] Nov, DM neuro manif type II E11.49 ; Mild intermittent asthma without complication J45.20 ; Essential hypertension I10 and Phantom pain R52 [facility] [id number] [place] [address] [id number] Oct, Phantom pain R52 [facility] [id number] [place] [address] [id number] Sep, Phantom pain R52 ; DM neuro manif type II E11.49 and Essential hypertension I10 [facility] [id number] [place] [address] [id number] August, DM neuro manif type II E11.49 ; Phantom pain R52 and Essential hypertension I10 [facility] [id number] [place] [address] [id number] Jul, DM neuro manif type II E11.49 and Phantom pain R52 [facility] [id number] [place] [address] Jun, Onychomycosis B35.1 and DM neuro manif type II E11.49 [facility] [address] [place] [address] [id number] Jun, DM neuro manif type II E11.49 ; Phantom pain R52 ; Essential hypertension I10 and Diabetes with neurological manifestations, type II or unspecified type, not stated as uncontrolled 250.60 [facility] [id number] [place] [address] [id number] Apr, DM neuro manif type II E11.49 ; Phantom pain R52 ; Essential hypertension I10 and Mild intermittent asthma without complication J45.20 [facility] [id number], [place] [id number] Apr, Need for follow up care after discharge from healthcare facility Z92.89 and Wound of right lower extremity, subsequent encounter S81.801D [facility] [id number] [place] [address] [id number] Mar, Phantom pain R52 ; DM neuro manif type II E11.49 and Essential hypertension I10 [facility] [id number] [place] [address] [id number] Feb, DM neuro manif type II E11.49 ; Phantom pain R52 and Essential hypertension I10 [facility] [id number], [place] [id number] Jan, Phantom pain R52 and DM neuro manif type II E11.49 [facility] [address] [facility] [id number][place] [id number] Dec, [facility] [id number] [place] [address] [id number] Dec, DM neuro manif type II E11.49 ; Phantom pain R52 ; Mild intermittent asthma without complication J45.20 and Essential hypertension I10 [facility] [address] [id number], [place] [address] Dec, Onychomycosis B35.1 ; Xerosis of skin L85.3 and DM neuro manif type II E11.49 [facility] [id number] [place] [address] [id number] Nov, Acquired absence of right leg below knee Z89.511 [facility] [id number] [place] [address] [id number] Nov, [facility] [id number] [place] [address] [id number] Nov, [facility] [id number] [place] [address] [id number] Sep, [facility] [id number] [place] [address] [id number] Sep, Diabetes type 2, uncontrolled E11.65 ; Leg wound, left, initial encounter S81.802A and Erectile disorder due to medical condition in male N52.1 [facility] [id number], [place] [id number] Sep, [facility] [id number] [place] [address] [id number] Jul, [facility] [id number] [place] [address] [id number] Jul, [facility] [id number] [place] [address] [id number] Jul, [facility] [id number] [place] [address] [id number] Jul, 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 ; Varicose vein of leg I83.93 ; Diabetes type 2, uncontrolled E11.65 and Chronic pain G89.29 [facility] [id number] [place] [address] [id number] Jul, [facility] [id number] [place] [address] [id number] Jul, Diabetes with neurological manifestations, type II or unspecified type, not stated as uncontrolled 250.60 [facility] [id number] [place] [address] [id number] Jul, [place] [id number] [place] [address] [id number] Jul, [facility] [id number] [place] [address] [id number] Jun, Diabetes type 2, uncontrolled E11.65 [place] [id number] [place] [address] [id number] Jun, Pain in right knee M25.561 ; Pain in left knee M25.562 ; Other chronic pain G89.29 and Primary osteoarthritis of both knees M17.0 [place] [id number] [place] [address] [id number] Apr, Diabetes type 2, uncontrolled E11.65 ; Puncture wound of foot, left, initial encounter S91.332A and Encounter for immunization Z23 [place] [id number] [place] [address] [id number] Apr, [facility] [id number] [place] [address] [id number] Apr, [facility] [id number] [place] [address] [id number] Feb, Acquired absence of right leg below knee Z89.511 [place] [address] [id number] [place] [address] [id number] Feb, Acquired absence of right leg below knee Z89.511 [place] [id number] [place] [address] [id number] Feb, Diabetes type 2, uncontrolled E11.65 and Acquired absence of right leg below knee Z89.511 [facility] [id number] [place] [address] [id number] Jan, [facility] [id number] [place] [address] [id number] Jan, [facility] [address]005[address]100[place], [place] [address] Jan, [facility] [id number] [place] [address] [id number] Jan, [facility] [id number] [place] [address] [id number] Dec, [place] [address] [id number] [place] [address] [id number] Dec, Diabetes with neurological manifestations, type II or unspecified type, not stated as uncontrolled 250.60 and Open wound of foot except toe(s) alone, without mention of complication 892.0 [facility] [id number] [place] [address] [id number] Dec, [facility] [id number] [place] [address] [id number] Nov, [facility] [id number] [place] [address] [id number] Nov, Cellulitis of foot 682.7 [place] [address] [id number] [place] [address] [id number] Oct, [place] [address] [id number] [place] [address] [id number] Oct, Corneal abrasion 918.1 [facility] [id number] [place] [address] [id number] Oct, [place] [id number] [place] [address] [id number] Oct, [facility] [id number] [place] [address] [id number] August, [facility] [id number] [place] [address] [id number] August, [facility] [address] [address] [id number] [place] [address] [id number] August, [facility] [address] [facility] [id number][place] [id number] August, [facility] [address] [place] [id number], [place] [phone] August, Diabetes mellitus without mention of complication, type II or unspecified type, not stated as uncontrolled 250.00 [facility] [address]00565100[place], [place] [address] Jul, [facility] [address] [id number], [place] [address] Jul, [facility] [id number] [place] [address] Apr, [facility] [address]005[address]100[place], [place] [address] Apr, [facility] [address], [place] [address] Mar, [facility] [address]005[address]100[place], [place] [address] Mar, [facility] [address]005[address]100[place], [place] [address] Mar, [facility] [address]005[address], [place] [address] Mar, [facility] [address]005[address]100[place], [place] [address] Mar, [facility] [address] [facility] [id number], [place] [address] Mar, [facility] [address] [facility] [id number][place] [id number] Mar, [facility] [address] [id number], [place] [address] Mar, [facility] [address] [id number], [place] [address] Mar, [facility] [place] [facility] [address] [id number] [place] [address] Mar, [facility] [place] [facility] [address] [id number] [place] [address] Mar, [facility] [place] [facility] [address] [facility] [id number] [place] [address] Mar, [facility] [place] [facility] [address] [facility] [id number] [place] [address] Mar, [facility] [address] [facility] [id number] [place] [phone] Mar, [facility] [place] [facility] [address] [facility] [id number] [place] [address] Jan, [facility] [address] [facility] [id number], [place] [id number] Jan, [facility] [place] [facility] [address] [facility] [id number] [place] [address] Jan, [facility] [place] [facility] [address] [facility] [id number], [place] [address] Jan, [facility] [place] [facility] [address] [facility] [id number], [place] [address] Jan, [facility] [address] [facility] [id number], [place] [phone] Jan, [facility] [place] [facility] [address] [facility] [id number], [place] [address] Dec, [facility] [address] [facility] [id number], [place] [id number] Nov, [facility] [place] [facility] [address] [id number], [place] [address] Nov, [facility] [address] [facility] [id number], [place] [id number] Oct, [facility] [place] [facility] [address] [facility] [id number], [place] [address] Oct, [facility] [address] [facility] [id number][place] [id number] Oct, [facility] [place] [facility] [address] [id number] [place] [address] Oct, [facility] [place] [facility] [address] [facility] [id number] [place] [address] August, [facility] [place] [facility] [address] [facility] [id number] [place] [address] August, [facility] [place] [facility] [address] [facility] [id number] [place] [address] August, [facility] [place] [facility] [address] [facility] [id number] [place] [address] August, [facility] [address] [facility] [id number], [place] [id number] Jul, [facility] [place] [facility] [address] [facility] [id number] [place] [address] Jul, [facility] [address] [facility] [id number], [place] [id number] Jun, [facility] [place] [facility] [address] [facility] [id number] [place] [address] Jun, [facility] [address] [facility] [id number], [place] [id number] Jun, [facility] [place] [facility] [address] [facility] [id number], [place] [address] Jun, [facility] [address] [facility] [id number], [place] [id number] Jun, [facility] [place] [facility] [address] [id number] [place] [address] Jun, [facility] [address] [facility] [id number] [place] [id number] Jun, [facility] [place] [facility] [address] [facility] [id number] [place] [address] Jun, [facility] [address] [id number], [place] [id number] May, [facility] [place] [facility] [address] [facility] [id number], [place] [address] May, [facility] [address] [facility] [id number][place] [id number] May, [facility] [place] [facility] [address] [facility] [id number], [place] [address] May, [facility] [place] [facility] [id number] [address] May, [facility] [place] [facility] [address] [facility] [id number] [place] [address] May, [facility] [address] [facility] [id number], [place] [id number] May, [facility] [place] [facility] [address]00565100[place], [place] [address] May, [facility] [id number], [place] [id number] May, [facility] [place] [facility] [id number], [place] [address] May, [facility] [place] [facility] [id number], [place] [address] Apr, [facility] [place] [facility] [id number], [place] [address] Apr, [facility] [place] [id number] [id number] Apr, [facility] [place] [facility] [address] [facility] [id number], [place] [address] Apr, [facility] [place] [address] [facility] [id number] [id number] Sep, [facility] [place] [facility] [address] [facility] [id number], [place] [address] 16 Sep, 2012 [facility] [place] [address] [facility] [id number][place] [id number] 14 Sep, 2012 [facility] [place] [address] [facility] [id number][place] [id number] Sep, [facility] [place] [address] [facility] [id number] [place] [address] Jun, [facility] [place] [address] [id number] [place] [id number] Nov, [facility] [place] [address] [id number] [place] [id number] Nov, [facility] [place] [address] [id number] [place] [id number] Nov, [facility] [place] [address] [id number] [place] [id number] Nov, [facility] [place] [address] [id number] [place] [id number] Nov, [facility] [place] [address] [id number] [place] [id number] Nov, [facility] [place] [address] [id number] [place] [address] Nov, [facility] [place] [address] [id number] [place] [id number] Nov, [facility] [place] [address] [id number] [place] [id number] Nov, [facility] [place] [address] [id number] [place] [id number] Sep, [facility] [place] [address] [id number] [place] [id number] Sep, [facility] [place] [address] [id number] [place] [address] Sep, [facility] [place] [address] [id number] [place] [id number] Sep, [facility] [place] [address] [id number] [place] [id number] August, [facility] [place] [address] [id number] [place] [id number] August, [facility] [place] [address] [id number] [place] [id number] August, [facility] [place] [address] [id number] [place] [id number] August, [facility] [address] [facility] [id number] [place] [address] Sep, IMMUNIZATIONS No Known Immunizations SOCIAL HISTORY Never Assessed REASON FOR VISIT Medication refill request PLAN OF CARE VITAL SIGNS MEDICATIONS Medication Instructions Dosage Frequency Start Date End Date Duration Status Hydrocodone-Acetaminophen 7.5-325 MG Orally every 6 hrs PRN must last 28 days 1 tablet as needed Oct, 0 days Active RESULTS No Results PROCEDURES [...] 11/2014 Surgical History amputation right mid-calf/foot at [facility] 01/2015 Hospitalization History [facility] post op infection to right foot, amputations to mid-calf 01/2015 Hospitalization History Via [facility] In post-op 7 days, discharges with home health -02/2015 Hospitalization History [facility] ER visit for sore on right stump 04/2016 Hospitalization History [facility] wound on left lower leg, culture +for Strep G 12/2016
--- OUTSIDE RECORDS SUMMARY | 2018-10-31 17:35 | XMS REPORT ---
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 Active 730517835 Problem Other chronic pain G89.29 Active 41540348 Problem Diabetes type 2, uncontrolled E11.65 Active 618785212 Problem Anaphylactic reaction to bee sting, accidental or unintentional, initial encounter T63.441A Active 049206701 Problem Skin ulcer of left lower leg, limited to breakdown of skin L97.921 Active 90913398 Problem Erectile dysfunction, unspecified erectile dysfunction type N52.9 Active 657175813 Problem Varicose veins of left lower extremity with ulcer other part of lower leg I83.028 Active 92015792 Problem 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 Active 035437889 Problem Phantom pain R52 Active 701661350 Problem Essential hypertension I10 Active 77985468 Problem DM neuro manif type II E11.49 Active 84112710 Problem Acquired absence of right leg below knee Z89.511 Active 548506628 Problem Cellulitis of left lower extremity L03.116 Active 399648982 Problem Acute pain of left shoulder M25.512 Active 47976651 Problem Mild intermittent asthma without complication J45.20 Active 704722667 Problem Reflux esophagitis K21.0 Active 683365351 Problem Obstructive sleep apnea syndrome G47.33 Active 27581939 Problem Hammertoe of left foot M20.42 Active 937642168 ALLERGIES Substance Reaction Event Type Date Status Victoza vomiting Drug Allergy Sep, Active Lopid vomiting Drug Allergy Sep, Active Cleocin vomiting Drug Allergy Sep, Active Cephalexin rash Drug Allergy Sep, Active ENCOUNTERS Encounter Location Date Diagnosis [facility], [place] [address] [address] Dec, [place] [id number] [place] [address] [id number] Dec, [place] [id number] [place] [address] [phone] Nov, Phantom pain R52 [address] [id number] Nov, Diabetes type 2, uncontrolled E11.65 and BMI 40.0-44.9, adult Z68.[address] [id number] Oct, Anaphylactic reaction to bee sting, accidental or unintentional, initial encounter T63.441A ; Pain in right shoulder M25.511 and Other chronic pain G89.29 [place] [id number] [place] [address] [id number] Oct, Diabetes type 2, uncontrolled E11.65 [place] [id number] [place] [address] [id number] Oct, Diabetes type 2, uncontrolled E11.65 and Cellulitis of left lower extremity L03.116 [place] [id number] [place] [address] [id number] Oct, Phantom pain R52 [facility], [place] [id number] [place] [address] 15 Sep, 2017 Onychomycosis B35.1 ; Impaired circulation of left leg I99.9 and DM neuro manif type II E11.49 [place] [id number] [place] [address] [id number] Sep, BMI 40.0-44.9, adult Z68.41 ; Skin ulcer of left lower leg, limited to breakdown of skin L97.921 ; Acute pain of left shoulder M25.512 ; DM neuro manif type II E11.49 ; Mild intermittent asthma without complication J45.20 and Phantom pain R52 [place] [id number] [id number] Sep, Phantom pain R52 [facility] [id number] [place] [address] [id number] August, Phantom pain R52 [facility] [id number] [place] [address] [id number] August, Acquired absence of right leg below knee Z89.511 [facility] [id number] [place] [address] [id number] August, Acquired absence of right leg below knee Z89.511 [place] [id number] [place] [address] August, Diabetes type 2, uncontrolled E11.65 [place] [id number] [place] [address] August, [place] [id number] [place] [address] August, [facility] [id number] [id number] August, BMI 40.0-44.9, adult Z68.41 ; 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 and Acquired absence of right leg below knee Z89.511 [facility] [address] [id number] [place] [address] August, [facility] [address] [id number] [id number] Jul, Skin ulcer of left lower leg, limited to breakdown of skin L97.921 [facility] 120 [facility] [id number] [id number] Jul, [address] [place] [address] [id number] Jul, BMI 40.0-44.9, adult Z68.41 ; Skin ulcer of left lower leg, limited to breakdown of skin L97.921 and DM neuro manif type II E11.49 [place] [id number] [place] [address] Jul, [facility] [address] [id number] [id number] Jul, [address] [place] [address] [id number] Jul, [address] [place] [address] [id number] Jun, Erectile dysfunction, unspecified erectile dysfunction type N52.9 [place] [id number] [place] [address] Jun, [address] [place] [address] [id number] Jun, BMI 40.0-44.9, adult Z68.41 ; Diabetes type 2, uncontrolled E11.65 ; Phantom pain R52 ; Subluxation of right shoulder joint, sequela S43.001S and Erectile dysfunction, unspecified erectile dysfunction type N52.9 [place] [id number] [place] [address] Jun, DM neuro manif type II E11.49 ; Onychomycosis B35.1 and Hammertoe of left foot M20.42 [place] [id number] [place] [address] Jun, [address] [place] [address] [id number] Jun, DM neuro manif type II E11.[address] [id number] [id number] Jun, DM neuro manif type II E11.49 [place] [id number] [place] [address] [phone] May, DM neuro manif type II E11.49 ; Venous insufficiency (chronic) (peripheral) I87.2 ; 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 ; Essential hypertension I10 and Phantom pain R52 [address] [id number] Apr, Diabetes type 2, uncontrolled E11.65 ; Acquired absence of right leg below knee Z89.511 ; Essential hypertension I10 ; Reflux esophagitis K21.0 and Phantom pain R52 [facility] [address] [id number] Apr, BMI 40.0-44.9, adult Z68.41 and Wheelchair bound Z99.3 [facility] [address] [id number] Mar, [facility] [address] [id number] Mar, BMI 40.0-44.9, adult Z68.41 ; Diabetes type 2, uncontrolled E11.65 ; Mild intermittent asthma without complication J45.20 ; Phantom pain R52 ; Reflux esophagitis K21.0 and Essential hypertension I10 [facility] [id number] [place] [address] [id number] Feb, Phantom pain R52 [place] [address] [id number] Feb, Phantom pain R52 and Acute pain of left shoulder M25.512 [facility] [address] [id number] Jan, Phantom pain R52 [place] [id number] [place] [address] [id number] Jan, DM neuro manif type II E11.49 ; Cellulitis of left lower extremity L03.116 ; Obstructive sleep apnea syndrome G47.33 ; Thyroid disorder screen Z13.29 and Lipid screening Z13.220 [facility] [id number] [place] [address] [id number] Jan, [facility] [id number] [place] [address] [id number] Dec, DM neuro manif type II E11.49 ; Phantom pain R52 and Mild intermittent asthma without complication J45.20 [facility] [id number] [place] [address] [id number] Dec, Wound of left lower extremity, subsequent encounter S81.802D [place] [address] [id number] Nov, [facility], [place] [address]65[address], [place] [address] Nov, [place] [id number] [place] [address] [id number] Nov, DM neuro manif type II E11.49 ; Mild intermittent asthma without complication J45.20 ; Essential hypertension I10 and Phantom pain R52 [place] [id number] [place] [address] [id number] Oct, Phantom pain R52 [place] [id number] [place] [address] [id number] Sep, Phantom pain R52 ; DM neuro manif type II E11.49 and Essential hypertension I10 [place] [id number] [place] [address] [id number] August, DM neuro manif type II E11.49 ; Phantom pain R52 and Essential hypertension I10 [place] [id number] [place] [address] [id number] Jul, DM neuro manif type II E11.49 and Phantom pain R52 [facility], [place] [address] [place] [address] Jun, Onychomycosis B35.1 and DM neuro manif type II E11.49 [address] [place] [address] [id number] Jun, DM neuro manif type II E11.49 ; Phantom pain R52 ; Essential hypertension I10 and Diabetes with neurological manifestations, type II or unspecified type, not stated as uncontrolled 250.60 [address] [place] [address] [id number] Apr, DM neuro manif type II E11.49 ; Phantom pain R52 ; Essential hypertension I10 and Mild intermittent asthma without complication J45.20 [place] [id number] [place] [address] [id number] Apr, Need for follow up care after discharge from healthcare facility Z92.89 and Wound of right lower extremity, subsequent encounter S81.801D [place] [address] [place] [address] [id number] Mar, Phantom pain R52 ; DM neuro manif type II E11.49 and Essential hypertension I10 [facility] [id number] [place] [address] [id number] Feb, DM neuro manif type II E11.49 ; Phantom pain R52 and Essential hypertension I10 [facility] [id number] [place] [address] [id number] Jan, Phantom pain R52 and DM neuro manif type II E11.49 [facility] [id number] [place] [address] [id number] Dec, [place] [id number] [place] [address] [id number] Dec, DM neuro manif type II E11.49 ; Phantom pain R52 ; Mild intermittent asthma without complication J45.20 and Essential hypertension I10 [facility], [place] [id number] [place] [address] Dec, Onychomycosis B35.1 ; Xerosis of skin L85.3 and DM neuro manif type II E11.49 [facility] [id number] [place] [address] [id number] Nov, Acquired absence of right leg below knee Z89.511 [place] [id number] [place] [address] [id number] Nov, [place] [id number] [place] [address] [id number] Nov, [place] [id number] [place] [address] [id number] Sep, [place] [address] [place] [address] [id number] Sep, Diabetes type 2, uncontrolled E11.65 ; Leg wound, left, initial encounter S81.802A and Erectile disorder due to medical condition in male N52.1 [address] [place] [address] [id number] Sep, [place] [id number] [place] [address] [id number] Jul, [place] [id number] [place] [address] [id number] Jul, 2015 [facility] [id number] [place] [address] [id number] Jul, [place] [address] [place] [id number] [place] [address] [id number] Jul, 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 ; Varicose vein of leg I83.93 ; Diabetes type 2, uncontrolled E11.65 and Chronic pain G89.29 [facility] [id number] [place] [address] [id number] Jul, [place] [id number] [place] [address] [id number] Jul, Diabetes with neurological manifestations, type II or unspecified type, not stated as uncontrolled 250.60 [place] [address] [id number] [place] [address] [id number] Jul, [place] [id number] [place] [address] [id number] Jul, [place] [address] [place] [id number] [place] [address] [id number] Jun, Diabetes type 2, uncontrolled E11.65 [place] [id number] [place] [address] [id number] Jun, Pain in right knee M25.561 ; Pain in left knee M25.562 ; Other chronic pain G89.29 and Primary osteoarthritis of both knees M17.0 [place] [address] [place] [address] [id number] Apr, Diabetes type 2, uncontrolled E11.65 ; Puncture wound of foot, left, initial encounter S91.332A and Encounter for immunization Z23 [place] [id number] [place] [address] [id number] Apr, [place] [address] [place] [id number] [place] [address] [id number] Apr, [facility] [id number] [place] [address] [id number] Feb, Acquired absence of right leg below knee Z89.511 [place] [address] [address] [place] [address] [id number] Feb, Acquired absence of right leg below knee Z89.511 [facility] [id number] [id number] Feb, Diabetes type 2, uncontrolled E11.65 and Acquired absence of right leg below knee Z89.511 [facility] [id number] [place] [address] [id number] Jan, [facility] [id number] [place] [address] [id number] Jan, [facility], [place] [address], [place] [address] Jan, [facility] [id number] [place] [address] [id number] Jan, Don [id number] [place] [address] [phone] Dec, [place] [address] [place] [id number] [place] [address] [id number] Dec, Diabetes with neurological manifestations, type II or unspecified type, not stated as uncontrolled 250.60 and Open wound of foot except toe(s) alone, without mention of complication 892.0 [facility] [id number] [place] [address] [id number] Dec, [facility] [id number] [place] [address] [id number] Nov, [facility] [id number] [place] [address] [id number] Nov, Cellulitis of foot 682.7 [facility] [id number] [place] [address] [id number] Oct, [facility] [id number] [place] [address] [id number] Oct, Corneal abrasion 918.1 [facility] [id number] [place] [address] [id number] Oct, [facility] [id number] [place] [address] [id number] Oct, [facility] [id number] [place] [address] [id number] August, [facility] [address] [id number] [phone] August, [facility] [address] [id number] [place] [id number] August, [facility] [address] [id number] [place] [id number] August, [facility] [address] [facility] [id number] [place] [id number] August, Diabetes mellitus without mention of complication, type II or unspecified type, not stated as uncontrolled 250.00 [facility] [address] [facility] [id number], [place] [address] Jul, [facility] [id number] [place] [address] Jul, [facility] [id number] [place] [address] Apr, [facility] [address] [id number], [place] [address] Apr, [facility] [address], [place] [address] Mar, [facility] [place] [facility] [address]65[address], [place] [address] Mar, [facility] [place] [facility] [address]65[address], [place] [address] Mar, [facility] [place] [facility] [id number], [place] [address] Mar, [facility] [place] [facility] [address] [facility] [id number], [place] [address] Mar, [facility] [place] [facility] [address] [facility] [id number], [place] [address] Mar, [facility] [address] [place] [id number] [id number] Mar, [facility] [place] [facility] [address], [place] [address] Mar, [facility] [place] [facility] [address] [facility] [id number] [place] [address] Mar, [facility] [place] [facility] [address] [facility] [id number] [place] [address] Mar, [facility] [place] [facility] [address] [facility] [id number] [place] [address] Mar, [facility] [place] [facility] [address] [facility] [id number], [place] [address] Mar, [facility] [place] [facility] [address] [facility] [id number] [place] [address] Mar, [facility] [address] [facility] [id number][place] [id number] Mar, [facility] [place] [facility] [address] [facility] [id number], [place] [address] Jan, [facility] [address] [facility] [id number][place] [id number] Jan, [facility] [place] [facility] [address] [facility] [id number], [place] [address] Jan, [facility] [place] [facility] [address] [facility] [id number], [place] [address] Jan, [facility] [place] [facility] [address] [facility] [id number], [place] [address] Jan, [facility] [address] [facility] [id number][place] [id number] Jan, [facility] [place] [facility] [address] [facility] [id number], [place] [address] Dec, [facility] [address] [facility] [id number], [place] [id number] Nov, [facility] [place] [facility] [address] [facility] [id number], [place] [address] Nov, [facility] [address] [facility] [id number], [place] [id number] Oct, [facility] [place] [facility] [address] [id number] [place] [address] Oct, [facility] [address] [facility] [id number] [place] [id number] Oct, [facility] [place] [facility] [address] [id number] [place] [address] Oct, [facility] [place] [facility] [address] [facility] [id number] [place] [address] August, [facility] [place] [facility] [address] [id number] [place] [address] August, [facility] [place] [facility] [address] [facility] [id number] [place] [address] August, [facility] [place] [facility] [address] [facility] [id number] [place] [address] August, [facility] [address] [facility] [id number], [place] [id number] Jul, [facility] [place] [facility] [address] [facility] [id number], [place] [address] Jul, [facility] [address] [facility] [id number], [place] [id number] Jun, [facility] [place] [facility] [address] [facility] [id number], [place] [address] Jun, [facility] [address] [facility] [id number], [place] [id number] Jun, [facility] [place] [facility] [address] [facility] [id number], [place] [address] Jun, [facility] [address] [facility] [id number] [place] [id number] Jun, [facility] [place] [facility] [address] [facility] [id number], [place] [address] Jun, [facility] [address] [facility] [id number], [place] [id number] Jun, [facility] [place] [facility] [address] [facility] [id number], [place] [address] Jun, [facility] [address] [id number] [place] [id number] May, [facility] [place] [facility] [address] [facility] [id number], [place] [address] May, [facility] [address] [facility] [id number] [place] [id number] May, [facility] [place] [facility] [address] [facility] [id number], [place] [address] May, [facility] [place] [facility] [address] [facility] [id number] [place] [address] May, [facility] [place] [facility] [address] [facility] [id number], [place] [address] May, [facility] [address] [id number] [place] [id number] May, [facility] [place] [facility] [id number], [place] [address] May, [facility] [address] [id number] [place] [id number] May, [facility] [place] [facility] [address] [facility] [id number], [place] [address] May, [facility] [place] [facility] [address]65[address], [place] [address] Apr, [facility] [place] [facility] [address] [facility] [id number], [place] [address] Apr, [facility] [address] [facility] [id number] [place] [id number] Apr, [facility] [place] [facility] [address] [facility] [id number], [place] [address] Apr, [facility] [address] [facility] [id number] [id number] Sep, [facility] [address] [id number], [place] [address] Sep, [facility] [address] [id number] [place] [id number] Sep, [facility] [address] [id number] [place] [id number] Sep, [facility] [address] [id number] [place] [address] Jun, [facility] [address] [id number] [place] [id number] Nov, [facility] [address] [id number] [place] [id number] Nov, [facility] [address] [id number] [place] [id number] Nov, [facility] [address] [id number] [place] [id number] Nov, [facility] [address] [id number] [place] [id number] Nov, [facility] [address] [id number] [place] [id number] Nov, [facility] [address] [id number] [place] [id number] Nov, [facility] [address] [id number] [place] [id number] Nov, [facility] [address] [id number] [place] [id number] Nov, [facility] [address] [id number] [place] [id number] Sep, [facility] [address] [id number] [place] [id number] Sep, [facility] [address] [id number] [place] [id number] Sep, [facility] [address] [id number] [place] [id number] Sep, [facility] [address] [id number] [place] [id number] August, [facility] [address] [id number] [place] [id number] August, [facility] [address] [id number] [place] [id number] August, [facility] [address] [facility] [id number] [place] [id number] August, [facility] [place] [address] [facility] [id number] [place] [address] Sep, IMMUNIZATIONS No Known Immunizations SOCIAL HISTORY Never Assessed REASON FOR VISIT stasis ulcer left leg Lizeth RN PLAN OF CARE Activity Details Follow Up 4 Weeks Reason:dm VITAL SIGNS Height 72 in 2017-09-20 Weight 302.2 lbs 2017-09-20 Temperature 98.2 degrees Fahrenheit 2017-09-20 Heart Rate 100 bpm 2017-09-20 Respiratory Rate 18 2017-09-20 BMI 40.98 kg/m2 2017-09-20 Blood pressure systolic 128 mmHg 2017-09-20 Blood pressure diastolic 88 mmHg 2017-09-20 MEDICATIONS Medication Instructions Dosage Frequency Start Date End Date Duration Status Ibuprofen 800 MG Orally Three times a day 1 tablet with food or milk as needed 8h Feb, Active Walker - as directed Apr, Active Pioglitazone HCl 30 MG DX- E11.65 Once a day 1 tablet 24h Jun, Active Amlodipine Besylate 10 mg Orally Once a day 1 tablet 24h Active Metformin HCl 1000 MG Orally Twice a day 1 tablet with meals 12h Active Singulair 10 mg Orally Once a day 1 tablet in the evening 24h Active Leg Prosthesis N/A DON: 99 as directed Right below knee definitive Nov, Active Hydrocodone-Acetaminophen 7.5-325 MG Orally every 6 hrs PRN must last 1 m 1 tablet as needed Sep, 0 days Active BD Insulin Syringe 30G X 1/2 subcutaneously 5 times daily as directed Dec, Active BD Pen Needle Nedra U/F 32G X 4 MM as directed 8h Sep, Active Blood Glucose Test Strip Test Strips as directed 8h Dec, 30 days Active NovoLog 100 UNIT/ML Subcutaneous 3 times a day, E11.65 60 units Jun, Active Gemfibrozil 600 MG Orally twice a day take 1 tablet 12h Active Potassium Chloride 20 MEQ Orally Once a day 1 tablet 24h Dec, Active Zoloft 50 mg Orally Once a day 1 tablet 24h Active Blood Pressure Kit ... as directed Mar, Active Tresiba FlexTouch 200 UNIT/ML Subcutaneous at bedtime 156 units 20 Sep, 2015 Active Omeprazole 40 MG Orally Once a day 1 capsule 24h 30 days Active Gabapentin 600 MG Orally Three times a day 1 capsule 1 tab qhs x 5 d then bid x 5 d then tid 8h 15 Dec, 2015 Active Lancets - as directed Mar, Active Diovan HCT 160-12.5 MG Orally Once a day take 1 tablet 24h Active Knee Compression Sleeve/L/XL - sleeve and liner August, Active Sildenafil Citrate 20 mg Orally do not take more than 1-2 tabs in a 24 hour period 1-2 tablets prn for sexual activity Jun, Active ProAir HFA 108 (90 Base) MCG/ACT Inhalation every 4-6 hours as needed 2 puffs Jul, Active Farxiga 5 mg Orally Once a day in the morning 1 tablet Active Wheelchair - as directed Apr, lifetime Active Silvadene 1 % Externally Once a day 1 application to affected area 24h Jul, Active RESULTS No Results PROCEDURES Procedure Date Ordered Result Body Site [facility] VISIT ESTABLISHED PATIENT September 20, 2017 INSTRUCTIONS MEDICATIONS ADMINISTERED No Known Medications [...] 11/2014 Surgical History amputation right mid-calf/foot at [facility] 01/2015 Hospitalization History [facility] post op infection to right foot, amputations to mid-calf 01/2015 Hospitalization History [facility] In post-op 7 days, discharges with home health -02/2015 Hospitalization History [facility] visit for sore on right stump 04/2016 [facility]ization History [facility] wound on left lower leg, culture +for Strep G 12/2016
--- OUTSIDE RECORDS SUMMARY | 2018-10-31 17:35 | XMS REPORT ---
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 Active 375887743 Problem Other chronic pain G89.29 Active 21667806 Problem Diabetes type 2, uncontrolled E11.65 Active 527081547 Problem Anaphylactic reaction to bee sting, accidental or unintentional, initial encounter T63.441A Active 850358603 Problem Skin ulcer of left lower leg, limited to breakdown of skin L97.921 Active 78129068 Problem Erectile dysfunction, unspecified erectile dysfunction type N52.9 Active 761077676 Problem Varicose veins of left lower extremity with ulcer other part of lower leg I83.028 Active 48499208 Problem 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 Active 384560280 Problem Phantom pain R52 Active 798217066 Problem Essential hypertension I10 Active 86575628 Problem DM neuro manif type II E11.49 Active 92256951 Problem Acquired absence of right leg below knee Z89.511 Active 174478202 Problem Cellulitis of left lower extremity L03.116 Active 452803915 Problem Acute pain of left shoulder M25.512 Active 14086100 Problem Mild intermittent asthma without complication J45.20 Active 534989429 Problem Reflux esophagitis K21.0 Active 897251782 Problem Obstructive sleep apnea syndrome G47.33 Active 49240730 Problem Hammertoe of left foot M20.42 Active 965389763 ALLERGIES No Information ENCOUNTERS Encounter Location Date Diagnosis [facility] [id number] [place] [address] Dec, [address] [id number] Dec, [address] [id number] Nov, Phantom pain R52 [address] [id number] Nov, Diabetes type 2, uncontrolled E11.65 and BMI 40.0-44.9, adult Z68.[address] [id number] Oct, Anaphylactic reaction to bee sting, accidental or unintentional, initial encounter T63.441A ; Pain in right shoulder M25.511 and Other chronic pain G89.[address] [id number] Oct, Diabetes type 2, uncontrolled E11.[address] [id number] Oct, Diabetes type 2, uncontrolled E11.65 and Cellulitis of left lower extremity L03.[address] [id number] Oct, Phantom pain R52 [facility] [id number] [place] [address] 15 Sep, 2017 Onychomycosis B35.1 ; Impaired circulation of left leg I99.9 and DM neuro manif type II E11.49 [address] [place] [address] [id number] Sep, BMI 40.0-44.9, adult Z68.41 ; Skin ulcer of left lower leg, limited to breakdown of skin L97.921 ; Acute pain of left shoulder M25.512 ; DM neuro manif type II E11.49 ; Mild intermittent asthma without complication J45.20 and Phantom pain R52 [id number] [place] [address] [id number] Sep, Phantom pain R52 [id number] [id number] August, Phantom pain R52 [facility] [id number] [place] [address] [id number] August, Acquired absence of right leg below knee Z89.511 [facility] [id number][place] [id number] August, Acquired absence of right leg below knee Z89.511 [id number] [place] [address] August, Diabetes type 2, uncontrolled E11.65 [id number] [place] [address] August, [id number] [place] [address] August, [facility] [id number] [place] [address] [id number] August, BMI 40.0-44.9, adult Z68.41 ; 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 and Acquired absence of right leg below knee Z89.511 [facility] [address] [id number] [place] [address] August, [facility] [address] [id number][place] [id number] Jul, Skin ulcer of left lower leg, limited to breakdown of skin L97.921 [facility] [id number], [place] [id number] Jul, [facility] [id number][place] [id number] Jul, BMI 40.0-44.9, adult Z68.41 ; Skin ulcer of left lower leg, limited to breakdown of skin L97.921 and DM neuro manif type II E11.49 [facility] [address]00565100[place] [address] Jul, [facility] [id number] [place] [address] [id number] Jul, [id number] [id number] Jul, [id number] [place] [address] [id number] Jun, Erectile dysfunction, unspecified erectile dysfunction type N52.9 [facility] [address]00565100[place] [address] Jun, [address] [place] [address] [id number] Jun, BMI 40.0-44.9, adult Z68.41 ; Diabetes type 2, uncontrolled E11.65 ; Phantom pain R52 ; Subluxation of right shoulder joint, sequela S43.001S and Erectile dysfunction, unspecified erectile dysfunction type N52.9 [facility] [address]00565100[place] [address] Jun, DM neuro manif type II E11.49 ; Onychomycosis B35.1 and Hammertoe of left foot M20.42 [facility] [address]00565100[place] [address] Jun, [address] [place] [address] [id number] Jun, DM neuro manif type II E11.[address] [id number] [id number] Jun, DM neuro manif type II E11.49 [address]00565100[place] [id number] May, DM neuro manif type II E11.49 ; Venous insufficiency (chronic) (peripheral) I87.2 ; 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 ; Essential hypertension I10 and Phantom pain R52 [address] [place] [address] [id number] Apr, Diabetes type 2, uncontrolled E11.65 ; Acquired absence of right leg below knee Z89.511 ; Essential hypertension I10 ; Reflux esophagitis K21.0 and Phantom pain R52 [facility] [id number] [place] [address] [id number] Apr, BMI 40.0-44.9, adult Z68.41 and Wheelchair bound Z99.3 [facility] [id number] [place] [address] [id number] Mar, [facility] [id number] [place] [address] [id number] Mar, BMI 40.0-44.9, adult Z68.41 ; Diabetes type 2, uncontrolled E11.65 ; Mild intermittent asthma without complication J45.20 ; Phantom pain R52 ; Reflux esophagitis K21.0 and Essential hypertension I10 [address] [id number] Feb, Phantom pain R52 [address] [place] [address] [id number] Feb, Phantom pain R52 and Acute pain of left shoulder M25.512 [address] [place] [address] [id number] Jan, Phantom pain R52 [address] [place] [address] [id number] Jan, DM neuro manif type II E11.49 ; Cellulitis of left lower extremity L03.116 ; Obstructive sleep apnea syndrome G47.33 ; Thyroid disorder screen Z13.29 and Lipid screening Z13.220 [facility] [address] [place] [address] [id number] Jan, [address] [place] [address] [id number] Dec, DM neuro manif type II E11.49 ; Phantom pain R52 and Mild intermittent asthma without complication J45.20 [address] [place] [address] [id number] Dec, Wound of left lower extremity, subsequent encounter S81.802D [address] [place] [address] [id number] Nov, [facility] [id number] [place] [address] Nov, [facility] [address] [id number] [id number] Nov, DM neuro manif type II E11.49 ; Mild intermittent asthma without complication J45.20 ; Essential hypertension I10 and Phantom pain R52 [facility] [id number], [place] [id number] Oct, Phantom pain R52 [facility] [id number] [place] [address] [id number] Sep, Phantom pain R52 ; DM neuro manif type II E11.49 and Essential hypertension I10 [facility] [id number] [place] [address] [id number] August, DM neuro manif type II E11.49 ; Phantom pain R52 and Essential hypertension I10 [facility] [id number] [place] [address] [id number] Jul, DM neuro manif type II E11.49 and Phantom pain R52 [facility] [address]00565100[place] [address] Jun, Onychomycosis B35.1 and DM neuro manif type II E11.49 [facility] [id number], [place] [id number] Jun, DM neuro manif type II E11.49 ; Phantom pain R52 ; Essential hypertension I10 and Diabetes with neurological manifestations, type II or unspecified type, not stated as uncontrolled 250.60 [facility] [id number], [place] [id number] Apr, DM neuro manif type II E11.49 ; Phantom pain R52 ; Essential hypertension I10 and Mild intermittent asthma without complication J45.20 [facility] [id number], [place] [id number] Apr, Need for follow up care after discharge from healthcare facility Z92.89 and Wound of right lower extremity, subsequent encounter S81.801D [facility] [id number], [place] [id number] Mar, Phantom pain R52 ; DM neuro manif type II E11.49 and Essential hypertension I10 [facility] [id number] [place] [address] [id number] Feb, DM neuro manif type II E11.49 ; Phantom pain R52 and Essential hypertension I10 [facility] [address] [place] [address] [id number] Jan, Phantom pain R52 and DM neuro manif type II E11.49 [facility] [id number] [place] [address] [id number] Dec, [address] [id number] Dec, DM neuro manif type II E11.49 ; Phantom pain R52 ; Mild intermittent asthma without complication J45.20 and Essential hypertension I10 [facility] [id number] [place] [address] Dec, Onychomycosis B35.1 ; Xerosis of skin L85.3 and DM neuro manif type II E11.49 [address] [place] [address] [id number] Nov, Acquired absence of right leg below knee Z89.511 [address] [place] [address] [id number] Nov, [address] [place] [address] [id number] Nov, [address] [place] [address] [id number] Sep, [address] [place] [address] [id number] Sep, Diabetes type 2, uncontrolled E11.65 ; Leg wound, left, initial encounter S81.802A and Erectile disorder due to medical condition in male N52.1 [address] [place] [address] [id number] Sep, [address] [place] [address] [id number] Jul, [address] [place] [address] [id number] Jul, [address] [place] [address] [id number] Jul, [facility] [id number], [place] [id number] Jul, 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 ; Varicose vein of leg I83.93 ; Diabetes type 2, uncontrolled E11.65 and Chronic pain G89.29 [address] [place] [address] [id number] Jul, [address] [id number] Jul, Diabetes with neurological manifestations, type II or unspecified type, not stated as uncontrolled 250.60 [address] [place] [address] [id number] Jul, [address] [place] [address] [id number] Jul, [address] [place] [address] [id number] Jun, Diabetes type 2, uncontrolled E11.65 [address] [place] [address] [id number] Jun, Pain in right knee M25.561 ; Pain in left knee M25.562 ; Other chronic pain G89.29 and Primary osteoarthritis of both knees M17.0 [address] [place] [address] [id number] Apr, Diabetes type 2, uncontrolled E11.65 ; Puncture wound of foot, left, initial encounter S91.332A and Encounter for immunization Z23 [address] [place] [address] [id number] Apr, [address] [place] [address] [id number] Apr, [address] [place] [address] [id number] Feb, Acquired absence of right leg below knee Z89.511 [address] [place] [address] [id number] Feb, Acquired absence of right leg below knee Z89.511 [address] [place] [address] [id number] Feb, Diabetes type 2, uncontrolled E11.65 and Acquired absence of right leg below knee Z89.511 [facility] [id number] [place] [address] [id number] Jan, [facility] [address] [place] [address] [id number] Jan, [facility] [address]00565100[place] [address] Jan, [facility] [address] [place] [address] [id number] Jan, [facility] [id number] [place] [address] [id number] Dec, [facility] [address] [place] [address] [id number] Dec, Diabetes with neurological manifestations, type II or unspecified type, not stated as uncontrolled 250.60 and Open wound of foot except toe(s) alone, without mention of complication 892.0 [facility] [address] [place] [address] [id number] Dec, [address] [place] [address] [id number] Nov, [facility] [address] [place] [address] [id number] Nov, Cellulitis of foot 682.7 [address] [place] [address] [id number] Oct, [facility] [address] [place] [address] [id number] Oct, Corneal abrasion 918.1 [facility] [id number] [place] [address] [id number] Oct, [facility] [address] [place] [address] [id number] Oct, [facility] [id number] [place] [address] [id number] August, [facility] [id number] [place] [address] [id number] August, [address] [facility] [id number] [id number] August, [facility] [address] [facility] [id number][place] [id number] August, [facility] [address] [id number][place] [id number] August, Diabetes mellitus without mention of complication, type II or unspecified type, not stated as uncontrolled 250.00 [facility] [address] [facility] [id number] [place] [address] Jul, [facility] [address] [id number] [address] Jul, [facility] [address] [place] [address] Apr, [facility] [id number] [place] [address] Apr, [facility] [address] [address] Mar, [facility] [address] [address] Mar, [facility] [address] [address] Mar, [facility] [address] [address] Mar, [facility] [address] [address] Mar, [facility] [address] [facility] [id number] [place] [address] Mar, [facility] [address] [facility] [id number], [place] [id number] Mar, [facility] [address] [address] Mar, [facility] [address] [address] Mar, [facility] [place] [facility] [address] [id number] [place] [address] Mar, [facility] [place] [facility] [address] [facility] [id number] [place] [address] Mar, [facility] [place] [facility] [address] [facility] [id number] [place] [address] Mar, [facility] [place] [facility] [address] [facility] [id number] [place] [address] Mar, [facility] [address] [facility] [id number] [place] [id number] Mar, [facility] [place] [facility] [address] [facility] [id number] [place] [address] Jan, [facility] [address] [facility] [id number] [place] [id number] Jan, [facility] [place] [facility] [address] [facility] [id number] [place] [address] Jan, [facility] [place] [facility] [address] [facility] [id number] [place] [address] Jan, [facility] [place] [facility] [address] [facility] [id number] [place] [address] Jan, [facility] [address] [facility] [id number], [place] [id number] Jan, [facility] [place] [facility] [address] [facility] [id number] [place] [address] Dec, [facility] [address] [facility] [id number], [place] [id number] Nov, [facility] [place] [facility] [address] [facility] [id number] [place] [address] Nov, [facility] [address] [facility] [id number], [place] [id number] Oct, [facility] [place] [facility] [address] [facility] [id number] [place] [address] Oct, [facility] [address] [id number] [place] [id number] Oct, [facility] [place] [facility] [address] [id number] [place] [address] Oct, [facility] [place] [facility] [address] [id number] [place] [address] August, [facility] [place] [facility] [address] [facility] [id number] [place] [address] August, [facility] [place] [facility] [address] [id number] [place] [address] August, [facility] [place] [facility] [address] [facility] [id number] [place] [address] August, [facility] [address] [facility] [id number] [place] [id number] Jul, [facility] [place] [facility] [address] [facility] [id number] [place] [address] Jul, [facility] [address] [facility] [id number], [place] [id number] Jun, [facility] [place] [facility] [address] [facility] [id number] [place] [address] Jun, [facility] [address] [facility] [id number], [place] [id number] Jun, [facility] [place] [facility] [address] [id number] [place] [address] Jun, [facility] [address] [id number], [place] [id number] Jun, [facility] [place] [facility] [address] [id number] [place] [address] Jun, [facility] [address] [id number] [place] [id number] Jun, [facility] [place] [facility] [address] [id number] [place] [address] Jun, [facility] [address] [id number], [place] [id number] May, [facility] [place] [facility] [address] [facility] [id number] [place] [address] May, [facility] [address] [facility] [id number], [place] [id number] May, [facility] [place] [facility] [address] [facility] [id number] [place] [address] May, [facility] [place] [facility] [address] [facility] [id number] [place] [address] May, [facility] [place] [facility] [address] [facility] [id number] [place] [address] May, [facility] [place] [address] [facility] [id number][place] [id number] May, [facility] [place] [facility] [id number] [address] May, [facility] [place] [address] [id number] [id number] May, [facility] [place] [facility] [address] [facility] [id number] [place] [address] May, [facility] [place] [facility] [id number] [address] Apr, [facility] [place] [facility] [address] [facility] [id number] [place] [address] Apr, [facility] [place] [address] [facility] [id number][place] [id number] Apr, [facility] [place] [facility] [address] [facility] [id number] [place] [address] Apr, [facility] [place] [address] [facility] [id number][place] [id number] Sep, [facility] [place] [facility] [address] [facility] [id number] [place] [address] Sep, [facility] [place] [id number][place] [id number] Sep, [facility] [place] [address] [id number] [place] [id number] Sep[facility] [place] [address] [facility] [id number] [place] [address] Jun, [facility] [place] [address] [id number] [place] [id number] Nov, [facility] [place] [address] [id number] [place] [id number] Nov, [facility] [place] [address] [id number] [place] [id number] Nov, [facility] [place] [address] [id number] [place] [id number] Nov, [facility] [place] [address] [id number] [place] [id number] Nov, [facility] [place] [address] [id number] [place] [id number] Nov, [facility] [place] [address] [id number] [place] [id number] Nov, [facility] [place] [address] [id number] [place] [id number] Nov, [facility] [place] [address] [id number] [place] [id number] Nov, [facility] [place] [address] [id number] [place] [id number] Sep, [facility] [place] [address] [id number] [place] [id number] Sep, [facility] [place] [address] [id number] [place] [id number] Sep, [facility] [address] [id number] [place] [id number] Sep, [facility] [address] [id number] [place] [id number] August, [facility] [address] [id number] [place] [id number] August, [facility] [address] [id number] [place] [id number] August, [facility] [address] [id number] [place] [id number] August, [facility] [address] [facility] [id number] [place] [address] Sep, IMMUNIZATIONS No Known Immunizations SOCIAL HISTORY Never Assessed REASON FOR VISIT Controlled Med Refill PLAN OF CARE VITAL SIGNS MEDICATIONS Medication Instructions Dosage Frequency Start Date End Date Duration Status Hydrocodone-Acetaminophen 7.5-325 MG Orally every 6 hrs PRN must last 1 m 1 tablet as needed Sep, 0 days Active RESULTS No Results [...] 11/2014 Surgical History amputation right mid-calf/foot at [facility] 01/2015 Hospitalization History [facility] post op infection to right foot, amputations to mid-calf 01/2015 Hospitalization History [facility] In post-op 7 days, discharges with home health -02/2015 Hospitalization History [facility] ER visit for sore on right stump 04/2016 Hospitalization History [facility] wound on left lower leg, culture +for Strep G 12/2016
--- OUTSIDE RECORDS SUMMARY | 2018-10-31 17:36 | XMS REPORT ---
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 Active 737641292 Problem Other chronic pain G89.29 Active 35700667 Problem Diabetes type 2, uncontrolled E11.65 Active 131535066 Problem Anaphylactic reaction to bee sting, accidental or unintentional, initial encounter T63.441A Active 977192021 Problem Skin ulcer of left lower leg, limited to breakdown of skin L97.921 Active 60347180 Problem Erectile dysfunction, unspecified erectile dysfunction type N52.9 Active 557072987 Problem Varicose veins of left lower extremity with ulcer other part of lower leg I83.028 Active 30502733 Problem 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 Active 843499456 Problem Phantom pain R52 Active 298321772 Problem Essential hypertension I10 Active 89336201 Problem DM neuro manif type II E11.49 Active 01759672 Problem Acquired absence of right leg below knee Z89.511 Active 987797945 Problem Cellulitis of left lower extremity L03.116 Active 675199254 Problem Acute pain of left shoulder M25.512 Active 67173272 Problem Mild intermittent asthma without complication J45.20 Active 993798758 Problem Reflux esophagitis K21.0 Active 932042253 Problem Obstructive sleep apnea syndrome G47.33 Active 15809573 Problem Hammertoe of left foot M20.42 Active [id number] ALLERGIES No Information ENCOUNTERS Encounter Location Date Diagnosis [facility] [address] [facility] [id number] [address] Dec, [facility] [id number] [id number] Dec, [facility] [id number] [place] [address] [id number] Nov, Phantom pain R52 [facility] [id number] [place] [address] [id number] Nov, Diabetes type 2, uncontrolled E11.65 and BMI 40.0-44.9, adult Z68.41 [facility] [id number] [place] [address] [id number] Oct, Anaphylactic reaction to bee sting, accidental or unintentional, initial encounter T63.441A ; Pain in right shoulder M25.511 and Other chronic pain G89.29 [address] [place] [address] [id number] Oct, Diabetes type 2, uncontrolled E11.65 [place] [id number] [place] [address] [id number] Oct, Diabetes type 2, uncontrolled E11.65 and Cellulitis of left lower extremity L03.116 [address] [id number] [place] [address] [id number] Oct, Phantom pain R52 [facility] [address]00565100[place] [address] Sep, Onychomycosis B35.1 ; Impaired circulation of left leg I99.9 and DM neuro manif type II E11.49 [address] [place] [address] [id number] Sep, BMI 40.0-44.9, adult Z68.41 ; Skin ulcer of left lower leg, limited to breakdown of skin L97.921 ; Acute pain of left shoulder M25.512 ; DM neuro manif type II E11.49 ; Mild intermittent asthma without complication J45.20 and Phantom pain R52 [address] [place] [address] [id number] Sep, Phantom pain R52 [place] [id number] [place] [address] [id number] August, Phantom pain R52 [facility] [id number][place] [id number] August, Acquired absence of right leg below knee Z89.511 [place] [id number][place] [id number] August, Acquired absence of right leg below knee Z89.511 [place] [address] [address] August, Diabetes type 2, uncontrolled E11.65 [place] [address] [place] [address] [id number] [place] [address] August, [place] [address] [address] August, [address] [place] [address] [id number] August, BMI 40.0-44.9, adult Z68.41 ; 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 and Acquired absence of right leg below knee Z89.511 [facility] [address] [id number] [place] [address] August, [place] [id number] [place] [address] [id number] Jul, Skin ulcer of left lower leg, limited to breakdown of skin L97.921 [place] [id number] [place] [address] [id number] Jul, [address] [place] [address] [id number] Jul, BMI 40.0-44.9, adult Z68.41 ; Skin ulcer of left lower leg, limited to breakdown of skin L97.921 and DM neuro manif type II E11.49 [place] [address]00565100[place] [address] Jul, [place] [id number] [place] [address] [id number] Jul, [address]00565100[place] [id number] Jul, [address] [place] [address] [id number] Jun, Erectile dysfunction, unspecified erectile dysfunction type N52.9 [place] [address]00565100[place], [place] [address] Jun, [address] [place] [address] [id number] Jun, BMI 40.0-44.9, adult Z68.41 ; Diabetes type 2, uncontrolled E11.65 ; Phantom pain R52 ; Subluxation of right shoulder joint, sequela S43.001S and Erectile dysfunction, unspecified erectile dysfunction type N52.9 [place] [address] [place] [address] Jun, DM neuro manif type II E11.49 ; Onychomycosis B35.1 and Hammertoe of left foot M20.42 [place] [address]00565100[place] [address] Jun, [id number] [place] [address] [id number] Jun, DM neuro manif type II E11.[address] [id number] [id number] Jun, DM neuro manif type II E11.49 [address] [place] [address] [id number] May, DM neuro manif type II E11.49 ; Venous insufficiency (chronic) (peripheral) I87.2 ; 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 ; Essential hypertension I10 and Phantom pain R52 [address] [place] [address] [id number] Apr, Diabetes type 2, uncontrolled E11.65 ; Acquired absence of right leg below knee Z89.511 ; Essential hypertension I10 ; Reflux esophagitis K21.0 and Phantom pain R52 [place] [id number] [place] [address] [id number] Apr, BMI 40.0-44.9, adult Z68.41 and Wheelchair bound Z99.3 [facility] [id number] [place] [address] [id number] Mar, [facility] [id number] [place] [address] [id number] Mar, BMI 40.0-44.9, adult Z68.41 ; Diabetes type 2, uncontrolled E11.65 ; Mild intermittent asthma without complication J45.20 ; Phantom pain R52 ; Reflux esophagitis K21.0 and Essential hypertension I10 [place] [id number] [place] [address] [id number] Feb, Phantom pain R52 [place] [id number] [place] [address] [id number] Feb, Phantom pain R52 and Acute pain of left shoulder M25.512 [place] [id number] [place] [address] [id number] Jan, Phantom pain R52 [facility] [id number] [place] [address] [id number] Jan, DM neuro manif type II E11.49 ; Cellulitis of left lower extremity L03.116 ; Obstructive sleep apnea syndrome G47.33 ; Thyroid disorder screen Z13.29 and Lipid screening Z13.220 [facility] [address] [place] [address] [id number] Jan, [place] [id number] [place] [address] [id number] Dec, DM neuro manif type II E11.49 ; Phantom pain R52 and Mild intermittent asthma without complication J45.20 [facility] [address] [place] [address] [id number] Dec, Wound of left lower extremity, subsequent encounter S81.802D [facility] [address] [place] [address] [id number] Nov, [facility] [id number] [place] [address] Nov, [place] [id number] Nov, DM neuro manif type II E11.49 ; Mild intermittent asthma without complication J45.20 ; Essential hypertension I10 and Phantom pain R52 [facility] [id number] [place] [address] [id number] Oct, Phantom pain R52 [facility] [id number] [place] [address] [id number] Sep, Phantom pain R52 ; DM neuro manif type II E11.49 and Essential hypertension I10 [facility] [address] [id number] [place] [address] [id number] August, DM neuro manif type II E11.49 ; Phantom pain R52 and Essential hypertension I10 [facility] [address] [id number] [place] [address] [id number] Jul, DM neuro manif type II E11.49 and Phantom pain R52 [facility] [id number] [place] [address] Jun, Onychomycosis B35.1 and DM neuro manif type II E11.49 [facility] [address] [place] [address] [id number] Jun, DM neuro manif type II E11.49 ; Phantom pain R52 ; Essential hypertension I10 and Diabetes with neurological manifestations, type II or unspecified type, not stated as uncontrolled 250.60 [facility] [id number] [place] [address] [id number] Apr, DM neuro manif type II E11.49 ; Phantom pain R52 ; Essential hypertension I10 and Mild intermittent asthma without complication J45.20 [facility] [id number], [place] [id number] Apr, Need for follow up care after discharge from healthcare facility Z92.89 and Wound of right lower extremity, subsequent encounter S81.801D [facility] [id number] [place] [address] [id number] Mar, Phantom pain R52 ; DM neuro manif type II E11.49 and Essential hypertension I10 [facility] [id number] [place] [address] [id number] Feb, DM neuro manif type II E11.49 ; Phantom pain R52 and Essential hypertension I10 [facility] [id number][place] [id number] Jan, Phantom pain R52 and DM neuro manif type II E11.49 [facility] [address] [facility] [id number][place] [id number] Dec, [facility] [address] [id number] [place] [address] [id number] Dec, DM neuro manif type II E11.49 ; Phantom pain R52 ; Mild intermittent asthma without complication J45.20 and Essential hypertension I10 [facility] [address] [id number] [address] Dec, Onychomycosis B35.1 ; Xerosis of skin L85.3 and DM neuro manif type II E11.49 [facility] [id number] [place] [address] [id number] Nov, Acquired absence of right leg below knee Z89.511 [facility] [address] [address] [id number] [place] [address] [id number] Nov, [facility] [id number] [place] [address] [id number] Nov, [facility] [address] [id number] [place] [address] [id number] Sep, [facility] [address] [address] [id number] [place] [address] [id number] Sep, Diabetes type 2, uncontrolled E11.65 ; Leg wound, left, initial encounter S81.802A and Erectile disorder due to medical condition in male N52.1 [facility] [id number], [place] [id number] Sep, [facility] [address] [id number] [place] [address] [id number] Jul, [facility] [address] [address] [id number] [place] [address] [id number] Jul, [facility] [id number] [place] [address] [id number] Jul, [facility] [address] [address] [id number] [place] [address] [id number] Jul, 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 ; Varicose vein of leg I83.93 ; Diabetes type 2, uncontrolled E11.65 and Chronic pain G89.29 [facility] [address] [address] [id number] [place] [address] [id number] Jul, [facility] [address] [address] [id number] [place] [address] [id number] Jul, Diabetes with neurological manifestations, type II or unspecified type, not stated as uncontrolled 250.60 [facility] [address] [address] [id number] [place] [address] [id number] Jul, [place] [address] [place] [id number] [place] [address] [id number] Jul, [facility] [id number] [place] [address] [id number] Jun, Diabetes type 2, uncontrolled E11.65 [place] [address] [place] [address] [id number] Jun, Pain in right knee M25.561 ; Pain in left knee M25.562 ; Other chronic pain G89.29 and Primary osteoarthritis of both knees M17.0 [place] [id number] [place] [address] [id number] Apr, Diabetes type 2, uncontrolled E11.65 ; Puncture wound of foot, left, initial encounter S91.332A and Encounter for immunization Z23 [place] [id number] [place] [address] [id number] Apr, [facility] [id number] [place] [address] [id number] Apr, [facility] [id number] [place] [address] [id number] Feb, Acquired absence of right leg below knee Z89.511 [place] [address] [place] [id number] [place] [address] [id number] Feb, Acquired absence of right leg below knee Z89.511 [place] [id number] [place] [address] [id number] Feb, Diabetes type 2, uncontrolled E11.65 and Acquired absence of right leg below knee Z89.511 [facility] [id number] [place] [address] [id number] Jan, [facility] [address] [id number] [place] [address] [id number] Jan, [facility] [address]005[address] [address] Jan, [facility] [address] [id number] [place] [address] [id number] Jan, [facility] [id number] [place] [address] [id number] Dec, [place] [address] [place] [id number] [place] [address] [id number] Dec, Diabetes with neurological manifestations, type II or unspecified type, not stated as uncontrolled 250.60 and Open wound of foot except toe(s) alone, without mention of complication 892.0 [facility] [address] [id number] [place] [address] [id number] Dec, [facility] [id number] [place] [address] [id number] Nov, [facility] [address] [place] [id number] [place] [address] [id number] Nov, Cellulitis of foot 682.7 [place] [address] [place] [id number] [place] [address] [id number] Oct, [place] [address] [place] [id number] [place] [address] [id number] Oct, Corneal abrasion 918.1 [facility] [id number] [place] [address] [id number] Oct, [place] [id number] [place] [address] [id number] Oct, [facility] [id number] [place] [address] [id number] August, [facility] [id number] [place] [address] [id number] August, [facility] [address] [place] [id number] [place] [address] [id number] August, [facility] [place] [address] [facility] [id number][place] [phone] August, [facility] [place] [address] [place] [id number] [phone] August, Diabetes mellitus without mention of complication, type II or unspecified type, not stated as uncontrolled 250.00 [facility] [address]100[place], [place] [address] Jul, [facility] [address] [place] [address] [id number] [address] Jul, [facility] [address] [place] [address] Apr, [facility] [address]65100[place], [place] [address] Apr, [facility] [address], [place] [address] Mar, [facility] [address], [place] [address] Mar, [facility] [address], [place] [address] Mar, [facility] [address]65100[place], [place] [address] Mar, [facility] [address], [place] [address] Mar, [facility] [address] [facility] [id number], [place] [address] Mar, [facility] [place] [address] [facility] [id number][place] [id number] Mar, [facility] [id number] [address] Mar, [facility] [address] [place] [id number] [address] Mar, [facility] [place] [facility] [address] [id number] [place] [address] Mar, [facility] [place] [facility] [address] [id number] [place] [address] Mar, [facility] [place] [facility] [address] [facility] [id number] [place] [address] Mar, [facility] [place] [facility] [address] [facility] [id number] [place] [address] Mar, [facility] [address] [facility] [id number] [place] [id number] Mar, [facility] [place] [facility] [address] [facility] [id number] [place] [address] Jan, [facility] [address] [facility] [id number] [id number] Jan, [facility] [place] [facility] [address] [facility] [id number] [place] [address] Jan, [facility] [place] [facility] [address] [facility] [id number], [place] [address] Jan, [facility] [place] [facility] [address] [facility] [id number], [place] [address] Jan, [facility] [address] [facility] [id number][place] [id number] Jan, [facility] [place] [facility] [address] [facility] [id number], [place] [address] Dec, [facility] [address] [facility] [id number][place] [id number] Nov, [facility] [place] [facility] [address] [id number], [place] [address] Nov, [facility] [address] [facility] [id number][place] [id number] Oct, [facility] [place] [facility] [address] [facility] [id number][place] [address] Oct, [facility] [address] [facility] [id number][place] [id number] Oct, [facility] [place] [facility] [address] [id number] [place] [address] Oct, [facility] [place] [facility] [address] [facility] [id number] [place] [address] August, [facility] [place] [facility] [address] [facility] [id number] [place] [address] August, [facility] [place] [facility] [address] [facility] [id number] [place] [address] August, [facility] [place] [facility] [address] [facility] [id number] [place] [address] August, [facility] [address] [facility] [id number], [place] [id number] Jul, [facility] [place] [facility] [address] [facility] [id number] [place] [address] Jul, [facility] [address] [facility] [id number], [place] [address] Jun, [facility] [place] [facility] [address] [facility] [id number] [place] [address] Jun, [facility] [address] [facility] [id number], [place] [id number] Jun, [facility] [place] [facility] [address] [facility] [id number][place] [address] Jun, [facility] [address] [facility] [id number], [place] [id number] Jun, [facility] [place] [facility] [address] [id number] [place] [address] Jun, [facility] [address] [facility] [id number] [place] [id number] Jun, [facility] [place] [facility] [address] [facility] [id number] [place] [address] Jun, [facility] [address] [id number], [place] [id number] May, [facility] [place] [facility] [address] [facility] [id number][place] [address] May, [facility] [address] [facility] [id number][place] [id number] May, [facility] [place] [facility] [address] [facility] [id number][place] [address] May, [facility] [place] [facility] [address] [place] [address] May, [facility] [place] [facility] [address] [facility] [id number] [place] [address] May, [facility] [address] [facility] [id number], [place] [id number] May, [facility] [place] [facility] [address]65[address] [address] May, [facility] [id number], [place] [address] May, [facility] [place] [facility] [address]65[address] [address] May, [facility] [place] [facility] [address]65100[place], [place] [address] Apr, [facility] [place] [facility] [address], [place] [address] Apr, [facility] [id number], [place] [id number] Apr, [facility] [place] [facility] [address] [facility] [id number] [address] Apr, [facility] [place] [address] [facility] [id number] [id number] Sep, [facility] [place] [facility] [address] [facility] [id number] [address] 16 Sep, 2012 [facility] [place] [address] [facility] [id number][place] [id number] 14 Sep, 2012 [facility] [place] [address] [facility] [id number][place] [id number] Sep, [facility] [address] [facility] [id number] [place] [address] Jun, [facility] [place] [address] [id number] [place] [id number] Nov, [facility] [place] [address] [id number] [place] [id number] Nov, [facility] [place] [address] [id number] [place] [id number] Nov, [facility] [place] [address] [id number] [place] [id number] Nov, [facility] [place] [address] [id number] [place] [id number] Nov, [facility] [place] [address] [id number] [place] [id number] Nov, [facility] [place] [address] [id number] [place] [id number] Nov, [facility] [place] [address] [id number] [place] [id number] Nov, [facility] [place] [address] [id number] [place] [id number] Nov, [facility] [place] [address] [id number] [place] [id number] Sep, [facility] [place] [address] [id number] [place] [id number] Sep, [facility] [place] [address] [id number] [place] [id number] Sep, [facility] [place] [address] [id number] [place] [id number] Sep, [facility] [place] [address] [id number] [place] [id number] August, [facility] [place] [address] [id number] [place] [id number] August, [facility] [place] [address] [id number] [place] [id number] August, [facility] [place] [address] [id number] [place] [id number] August, [facility] [address] [facility] [address] [facility] [id number] [place] [address] Sep, IMMUNIZATIONS No Known Immunizations SOCIAL HISTORY Never Assessed REASON FOR VISIT Controlled Med Refill PLAN OF CARE VITAL SIGNS MEDICATIONS Medication Instructions Dosage Frequency Start Date End Date Duration Status Hydrocodone-Acetaminophen 7.5-325 MG Orally every 6 hrs PRN must last 1 m 1 tablet as needed Jun, Active RESULTS No Results PROCEDURES No Known [...] 11/2014 Surgical History amputation right mid-calf/foot at [facility] 01/2015 Hospitalization History [facility] post op infection to right foot, amputations to mid-calf 01/2015 Hospitalization History [facility] In post-op 7 days, discharges with home health -02/2015 Hospitalization History [facility] ER visit for sore on right stump 04/2016 Hospitalization History [facility] wound on left lower leg, culture +for Strep G 12/2016
--- OUTSIDE RECORDS SUMMARY | 2018-10-31 17:36 | XMS REPORT ---
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 Active 187519096 Problem Other chronic pain G89.29 Active 55406236 Problem Diabetes type 2, uncontrolled E11.65 Active 507434743 Problem Anaphylactic reaction to bee sting, accidental or unintentional, initial encounter T63.441A Active 904045512 Problem Skin ulcer of left lower leg, limited to breakdown of skin L97.921 Active 20507141 Problem Erectile dysfunction, unspecified erectile dysfunction type N52.9 Active 438520454 Problem Varicose veins of left lower extremity with ulcer other part of lower leg I83.028 Active 77139179 Problem 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 Active 760110699 Problem Phantom pain R52 Active 695860723 Problem Essential hypertension I10 Active 94327840 Problem DM neuro manif type II E11.49 Active 07253006 Problem Acquired absence of right leg below knee Z89.511 Active 179310130 Problem Cellulitis of left lower extremity L03.116 Active 773899688 Problem Acute pain of left shoulder M25.512 Active 33315932 Problem Mild intermittent asthma without complication J45.20 Active 705429521 Problem Reflux esophagitis K21.0 Active 456006690 Problem Obstructive sleep apnea syndrome G47.33 Active 66537927 Problem Hammertoe of left foot M20.42 Active 740728310 ALLERGIES Substance Reaction Event Type Date Status Victoza vomiting Drug Allergy August, Active Lopid vomiting Drug Allergy August, Active Cleocin vomiting Drug Allergy August, Active Cephalexin rash Drug Allergy August, Active ENCOUNTERS Encounter Location Date Diagnosis [facility] [address] [address] Dec, [place] [id number] [place] [address] [id number] Dec, [place] [id number] [place] [address] [phone] Nov, Phantom pain R52 [address] [id number] Nov, Diabetes type 2, uncontrolled E11.65 and BMI 40.0-44.9, adult Z68.[address] [id number] Oct, Anaphylactic reaction to bee sting, accidental or unintentional, initial encounter T63.441A ; Pain in right shoulder M25.511 and Other chronic pain G89.29 [place] [id number] [place] [address] [id number] Oct, Diabetes type 2, uncontrolled E11.65 [place] [id number] [place] [address] [id number] Oct, Diabetes type 2, uncontrolled E11.65 and Cellulitis of left lower extremity L03.116 [place] [id number] [place] [address] [id number] Oct, Phantom pain R52 [facility] [id number] [place] [address] 15 Sep, 2017 Onychomycosis B35.1 ; Impaired circulation of left leg I99.9 and DM neuro manif type II E11.49 [place] [id number] [place] [address] [id number] Sep, BMI 40.0-44.9, adult Z68.41 ; Skin ulcer of left lower leg, limited to breakdown of skin L97.921 ; Acute pain of left shoulder M25.512 ; DM neuro manif type II E11.49 ; Mild intermittent asthma without complication J45.20 and Phantom pain R52 [id number] [phone] Sep, Phantom pain R52 [facility] [id number] [place] [address] [id number] August, Phantom pain R52 [facility] [id number] [place] [address] [id number] August, Acquired absence of right leg below knee Z89.511 [facility] [id number] [place] [address] [id number] August, Acquired absence of right leg below knee Z89.511 [place] [id number] [place] [address] August, Diabetes type 2, uncontrolled E11.65 [place] [id number] [place] [address] August, [place] [id number] [place] [address] August, [facility] [id number], [place] [id number] August, BMI 40.0-44.9, adult Z68.41 ; 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 and Acquired absence of right leg below knee Z89.511 [facility] [address] [id number] [place] [address] August, [facility] [address] [id number] [id number] Jul, Skin ulcer of left lower leg, limited to breakdown of skin L97.921 [facility] 120 [facility] [id number] [id number] Jul, [address] [place] [address] [id number] Jul, BMI 40.0-44.9, adult Z68.41 ; Skin ulcer of left lower leg, limited to breakdown of skin L97.921 and DM neuro manif type II E11.49 [place] [id number] [place] [address] Jul, [facility] [address] [place] [id number] [id number] Jul, [address] [place] [address] [id number] Jul, [address] [place] [address] [id number] Jun, Erectile dysfunction, unspecified erectile dysfunction type N52.9 [place] [id number] [place] [address] Jun, [address] [place] [address] [id number] Jun, BMI 40.0-44.9, adult Z68.41 ; Diabetes type 2, uncontrolled E11.65 ; Phantom pain R52 ; Subluxation of right shoulder joint, sequela S43.001S and Erectile dysfunction, unspecified erectile dysfunction type N52.9 [place] [id number] [place] [address] Jun, DM neuro manif type II E11.49 ; Onychomycosis B35.1 and Hammertoe of left foot M20.42 [place] [address] [place] [address] Jun, [address] [place] [address] [id number] Jun, DM neuro manif type II E11.[address] [id number] [phone] Jun, DM neuro manif type II E11.49 [place] [id number] [place] [address] [id number] May, DM neuro manif type II E11.49 ; Venous insufficiency (chronic) (peripheral) I87.2 ; 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 ; Essential hypertension I10 and Phantom pain R52 [address] [id number] Apr, Diabetes type 2, uncontrolled E11.65 ; Acquired absence of right leg below knee Z89.511 ; Essential hypertension I10 ; Reflux esophagitis K21.0 and Phantom pain R52 [facility] [address] [id number] Apr, BMI 40.0-44.9, adult Z68.41 and Wheelchair bound Z99.3 [facility] [address] [id number] Mar, [facility] [address] [id number] Mar, BMI 40.0-44.9, adult Z68.41 ; Diabetes type 2, uncontrolled E11.65 ; Mild intermittent asthma without complication J45.20 ; Phantom pain R52 ; Reflux esophagitis K21.0 and Essential hypertension I10 [facility] [id number] [place] [address] [id number] Feb, Phantom pain R52 [place] [address] [id number] Feb, Phantom pain R52 and Acute pain of left shoulder M25.512 [facility] [address] [id number] Jan, Phantom pain R52 [place] [address] [id number] [place] [address] [id number] Jan, DM neuro manif type II E11.49 ; Cellulitis of left lower extremity L03.116 ; Obstructive sleep apnea syndrome G47.33 ; Thyroid disorder screen Z13.29 and Lipid screening Z13.220 [facility] [id number] [place] [address] [id number] Jan, [facility] [id number] [place] [address] [id number] Dec, DM neuro manif type II E11.49 ; Phantom pain R52 and Mild intermittent asthma without complication J45.20 [facility] [id number] [place] [address] [id number] Dec, Wound of left lower extremity, subsequent encounter S81.802D [place] [address] [id number] Nov, [facility] [address], [place] [address] Nov, [place] [id number] [place] [address] [id number] Nov, DM neuro manif type II E11.49 ; Mild intermittent asthma without complication J45.20 ; Essential hypertension I10 and Phantom pain R52 [place] [id number] [place] [address] [id number] Oct, Phantom pain R52 [place] [address] [place] [address] [id number] Sep, Phantom pain R52 ; DM neuro manif type II E11.49 and Essential hypertension I10 [place] [id number] [place] [address] [id number] August, DM neuro manif type II E11.49 ; Phantom pain R52 and Essential hypertension I10 [place] [id number] [place] [address] [id number] Jul, DM neuro manif type II E11.49 and Phantom pain R52 [facility] [address] [place] [address] Jun, Onychomycosis B35.1 and DM neuro manif type II E11.49 [address] [place] [address] [id number] Jun, DM neuro manif type II E11.49 ; Phantom pain R52 ; Essential hypertension I10 and Diabetes with neurological manifestations, type II or unspecified type, not stated as uncontrolled 250.60 [address] [place] [address] [id number] Apr, DM neuro manif type II E11.49 ; Phantom pain R52 ; Essential hypertension I10 and Mild intermittent asthma without complication J45.20 [place] [id number] [place] [address] [id number] Apr, Need for follow up care after discharge from healthcare facility Z92.89 and Wound of right lower extremity, subsequent encounter S81.801D [place] [address] [place] [address] [id number] Mar, Phantom pain R52 ; DM neuro manif type II E11.49 and Essential hypertension I10 [facility] [id number] [place] [address] [id number] Feb, DM neuro manif type II E11.49 ; Phantom pain R52 and Essential hypertension I10 [facility] [address] [id number] [place] [address] [id number] Jan, Phantom pain R52 and DM neuro manif type II E11.49 [facility] [address] [id number] [place] [address] [id number] Dec, [place] [id number] [place] [address] [id number] Dec, DM neuro manif type II E11.49 ; Phantom pain R52 ; Mild intermittent asthma without complication J45.20 and Essential hypertension I10 [facility] [id number] [place] [address] Dec, Onychomycosis B35.1 ; Xerosis of skin L85.3 and DM neuro manif type II E11.49 [facility] [address] [id number] [place] [address] [id number] Nov, Acquired absence of right leg below knee Z89.511 [place] [id number] [place] [address] [id number] Nov, [place] [address] [place] [address] [id number] Nov, [place] [address] [place] [address] [id number] Sep, [place] [address] [place] [address] [id number] Sep, Diabetes type 2, uncontrolled E11.65 ; Leg wound, left, initial encounter S81.802A and Erectile disorder due to medical condition in male N52.1 [address] [place] [address] [id number] Sep, [place] [address] [place] [address] [id number] Jul, [place] [address] [place] [address] [id number] 16 Jul, 2015 [facility] [id number] [place] [address] [id number] Jul, [place] [address] [address] [id number] [place] [address] [id number] Jul, 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 ; Varicose vein of leg I83.93 ; Diabetes type 2, uncontrolled E11.65 and Chronic pain G89.29 [facility] [address] [id number] [place] [address] [id number] Jul, [place] [id number] [place] [address] [id number] Jul, Diabetes with neurological manifestations, type II or unspecified type, not stated as uncontrolled 250.60 [place] [address] [id number] [place] [address] [id number] Jul, [place] [address] [place] [address] [id number] Jul, [place] [address] [id number] [place] [address] [id number] Jun, Diabetes type 2, uncontrolled E11.65 [place] [address] [place] [address] [id number] Jun, Pain in right knee M25.561 ; Pain in left knee M25.562 ; Other chronic pain G89.29 and Primary osteoarthritis of both knees M17.0 [place] [address] [place] [address] [id number] Apr, Diabetes type 2, uncontrolled E11.65 ; Puncture wound of foot, left, initial encounter S91.332A and Encounter for immunization Z23 [place] [id number] [place] [address] [id number] Apr, [place] [address] [place] [id number] [place] [address] [id number] Apr, [facility] [address] [id number] [place] [address] [id number] Feb, Acquired absence of right leg below knee Z89.511 [place] [address] [id number] [place] [address] [id number] Feb, Acquired absence of right leg below knee Z89.511 [facility] [id number], [place] [id number] Feb, Diabetes type 2, uncontrolled E11.65 and Acquired absence of right leg below knee Z89.511 [facility] [id number] [place] [address] [id number] Jan, [facility] [address] [id number] [place] [address] [id number] Jan, [facility] [address], [place] [address] Jan, [facility] [id number] [place] [address] [id number] Jan, [address] [place] [id number] [place] [address] [phone] Dec, [place] [address] [id number] [place] [address] [id number] Dec, Diabetes with neurological manifestations, type II or unspecified type, not stated as uncontrolled 250.60 and Open wound of foot except toe(s) alone, without mention of complication 892.0 [facility] [id number] [place] [address] [id number] Dec, [facility] [id number] [place] [address] [id number] Nov, [facility] [id number] [place] [address] [id number] Nov, Cellulitis of foot 682.7 [facility] [id number] [place] [address] [id number] Oct, [facility] [id number] [place] [address] [id number] Oct, Corneal abrasion 918.1 [facility] [id number] [place] [address] [id number] Oct, [facility] [id number] [place] [address] [id number] Oct, [facility] [id number] [place] [address] [id number] August, [facility] [address] [id number] [id number] August, [facility] [address] [id number] [place] [phone] August, [facility] [address] [id number] [place] [phone] August, [facility] [address] [facility] [id number] [place] [phone] August, Diabetes mellitus without mention of complication, type II or unspecified type, not stated as uncontrolled 250.00 [facility] [address] [facility] [id number], [place] [address] Jul, [facility] [id number] [place] [address] Jul, [facility] [id number] [place] [address] Apr, [facility] [address] [id number], [place] [address] Apr, [facility] [address], [place] [address] Mar, [facility] [place] [facility] [address], [place] [address] Mar, [facility] [place] [facility] [address], [place] [address] Mar, [facility] [place] [facility] [address] [place] [address] [id number], [place] [address] Mar, [facility] [place] [facility] [address] [facility] [id number], [place] [address] Mar, [facility] [place] [facility] [address] [facility] [id number], [place] [address] Mar, [facility] [address] [place] [id number], [place] [id number] Mar, [facility] [place] [facility] [address], [place] [address] Mar, [facility] [place] [facility] [address] [facility] [id number] [place] [address] Mar, [facility] [place] [facility] [address] [facility] [id number] [place] [address] Mar, [facility] [place] [facility] [address] [facility] [id number] [place] [address] Mar, [facility] [place] [facility] [address] [facility] [id number], [place] [address] Mar, [facility] [place] [facility] [address] [facility] [id number] [place] [address] Mar, [facility] [address] [facility] [id number], [place] [id number] Mar, [facility] [place] [facility] [address] [facility] [id number], [place] [address] Jan, [facility] [address] [facility] [id number], [place] [id number] Jan, [facility] [place] [facility] [address] [facility] [id number], [place] [address] Jan, [facility] [place] [facility] [address] [facility] [id number], [place] [address] Jan, [facility] [place] [facility] [address] [facility] [id number], [place] [address] Jan, [facility] [address] [facility] [id number], [place] [id number] Jan, [facility] [place] [facility] [address] [facility] [id number], [place] [address] Dec, [facility] [address] [facility] [id number], [place] [id number] Nov, [facility] [place] [facility] [address] [facility] [id number], [place] [address] Nov, [facility] [address] [facility] [id number], [place] [id number] Oct, [facility] [place] [facility] [address] [id number] [place] [address] Oct, [facility] [address] [facility] [id number] [place] [id number] Oct, [facility] [place] [facility] [address] [id number] [place] [address] Oct, [facility] [place] [facility] [address] [facility] [id number] [place] [address] August, [facility] [place] [facility] [address] [id number] [place] [address] August, [facility] [place] [facility] [address] [facility] [id number] [place] [address] August, [facility] [place] [facility] [address] [facility] [id number] [place] [address] August, [facility] [address] [facility] [id number], [place] [id number] Jul, [facility] [place] [facility] [address] [facility] [id number], [place] [address] Jul, [facility] [address] [facility] [id number], [place] 738761528 Jun, [facility] [place] [facility] [address] [facility] [id number], [place] [address] Jun, [facility] [address] [facility] [id number], [place] [id number] Jun, [facility] [place] [facility] [address] [facility] [id number], [place] [address] Jun, [facility] [address] [facility] [id number] [place] [id number] Jun, [facility] [place] [facility] [address] [facility] [id number], [place] [address] Jun, [facility] [address] [facility] [id number], [place] [id number] Jun, [facility] [place] [facility] [address] [facility] [id number], [place] [address] Jun, [facility] [address] [id number] [place] [id number] May, [facility] [place] [facility] [address] [facility] [id number], [place] [address] May, [facility] [address] [facility] [id number] [place] [id number] May, [facility] [place] [facility] [address] [facility] [id number], [place] [address] May, [facility] [place] [facility] [address] [facility] [id number] [place] [address] May, [facility] [place] [facility] [address] [facility] [id number], [place] [address] May, [facility] [address] [id number] [place] [id number] May, [facility] [place] [facility] [address] [id number], [place] [address] May, [facility] [address] [id number] [place] [id number] May, [facility] [place] [facility] [address] [facility] [id number], [place] [address] May, [facility] [place] [facility] [address], [place] [address] Apr, [facility] [place] [facility] [address] [facility] [id number], [place] [address] Apr, [facility] [address] [facility] [id number] [place] [id number] Apr, [facility] [address] [facility] [id number], [place] [address] Apr, [facility] [address] [facility] [id number][place] [id number] Sep, [facility] [address] [id number], [place] [address] Sep, [facility] [address] [id number] [place] [id number] Sep, [facility] [address] [id number] [place] [id number] Sep, [facility] [address] [id number] [place] [address] Jun, [facility] [address] [id number] [place] [id number] Nov, [facility] [address] [id number] [place] [id number] Nov, [facility] [address] [id number] [place] [id number] Nov, [facility] [address] [id number] [place] [id number] Nov, [facility] [address] [id number] [place] [id number] Nov, [facility] [address] [id number] [place] [id number] Nov, [facility] [address] [id number] [place] [id number] Nov, [facility] [address] [id number] [place] [id number] Nov, [facility] [address] [id number] [place] [id number] Nov, [facility] [address] [id number] [place] [id number] Sep, [facility] [address] [id number] [place] [id number] Sep, [facility] [address] [id number] [place] [id number] Sep, [facility] [address] [id number] [place] [id number] Sep, [facility] [address] [id number] [place] [id number] August, [facility] [address] [id number] [place] [id number] August, [facility] [address] [id number] [place] [id number] August, [facility] [address] [facility] [id number] [place] [id number] August, [facility] [address] [facility] [id number] [place] [address] Sep, IMMUNIZATIONS No Known Immunizations SOCIAL HISTORY Never Assessed REASON FOR VISIT 1 week follow up on cellulitis on left leg, worse than last week. [place] PLAN OF CARE Activity Details Follow Up 4 Weeks Reason:stasis ulcer VITAL SIGNS Height 72 in 2017-08-23 Weight 315.4 lbs 2017-08-23 Temperature 98.5 degrees Fahrenheit 2017-08-23 Heart Rate 92 bpm 2017-08-23 Respiratory Rate 16 2017-08-23 BMI 42.77 kg/m2 2017-08-23 Blood pressure systolic 128 mmHg 2017-08-23 Blood pressure diastolic 78 mmHg 2017-08-23 MEDICATIONS Medication Instructions Dosage Frequency Start Date End Date Duration Status Blood Glucose Test Strip Test Strips as directed 8h Dec, 30 days Active Omeprazole 40 MG Orally Once a day 1 capsule 24h 30 days Active Ibuprofen 800 MG Orally Three times a day 1 tablet with food or milk as needed 8h Feb, Active Lancets - as directed Mar, Active Diovan HCT 160-12.5 MG Orally Once a day take 1 tablet 24h Active Leg Prosthesis N/A DON: 99 as directed Right below knee definitive Nov, Active Blood Pressure Kit ... as directed Mar, Active Tresiba FlexTouch 200 UNIT/ML Subcutaneous at bedtime 150 units Sep, Active Singulair 10 mg Orally Once a day 1 tablet in the evening 24h Active Potassium Chloride 20 MEQ Orally Once a day 1 tablet 24h Dec, Active BD Insulin Syringe 30G X 1/2 subcutaneously 5 times daily as directed Dec, Active Pioglitazone HCl 30 MG DX- E11.65 Once a day 1 tablet 24h Jun, Active Gabapentin 600 MG Orally Three times a day 1 capsule 1 tab qhs x 5 d then bid x 5 d then tid 8h Dec, Active Zoloft 50 mg Orally Once a day 1 tablet 24h Active Knee Compression Sleeve/L/XL - as directed August, Active BD Pen Needle Nedra U/F 32G X 4 MM as directed 8h Sep, Active Sildenafil Citrate 20 mg Orally do not take more than 1-2 tabs in a 24 hour period 1-2 tablets prn for sexual activity Jun, Active Gemfibrozil 600 MG Orally twice a day take 1 tablet 12h Active Walker - as directed Apr, Active ProAir HFA 108 (90 Base) MCG/ACT Inhalation every 4-6 hours as needed 2 puffs Jul, Active Metformin HCl 1000 MG Orally Twice a day 1 tablet with meals 12h Active NovoLog 100 UNIT/ML Subcutaneous 3 times a day, E11.65 60 units Jun, Active Hydrocodone-Acetaminophen 7.5-325 MG Orally every 6 hrs PRN must last 1 m 1 tablet as needed Jun, Active Amlodipine Besylate 10 mg Orally Once a day 1 tablet 24h Active Silvadene 1 % Externally Once a day 1 application to affected area 24h Jul, Active Wheelchair - as directed Apr, lifetime Active Farxiga 5 mg Orally Once a day in the morning 1 tablet Active RESULTS No Results PROCEDURES No Known [...] History [facility] post-op 7 days, discharges with home health -02/2015 Hospitalization History [facility] visit for sore on right stump 04/2016 Hospitalization History [facility] wound on left lower leg, culture +for Strep G 12/2016
--- OUTSIDE RECORDS SUMMARY | 2018-10-31 17:37 | XMS REPORT ---
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 Active 368957497 Problem Other chronic pain G89.29 Active 64884142 Problem Diabetes type 2, uncontrolled E11.65 Active 410292761 Problem Anaphylactic reaction to bee sting, accidental or unintentional, initial encounter T63.441A Active 098547230 Problem Skin ulcer of left lower leg, limited to breakdown of skin L97.921 Active 69418401 Problem Erectile dysfunction, unspecified erectile dysfunction type N52.9 Active 870683707 Problem Varicose veins of left lower extremity with ulcer other part of lower leg I83.028 Active 26662544 Problem 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 Active 193503238 Problem Phantom pain R52 Active 777201133 Problem Essential hypertension I10 Active 98126200 Problem DM neuro manif type II E11.49 Active 22904399 Problem Acquired absence of right leg below knee Z89.511 Active 287046853 Problem Cellulitis of left lower extremity L03.116 Active 143042645 Problem Acute pain of left shoulder M25.512 Active 53831179 Problem Mild intermittent asthma without complication J45.20 Active 366101134 Problem Reflux esophagitis K21.0 Active 427632309 Problem Obstructive sleep apnea syndrome G47.33 Active 34336611 Problem Hammertoe of left foot M20.42 Active 947034331 ALLERGIES No Information ENCOUNTERS Encounter Location Date Diagnosis [facility] [address] [facility] [id number], [place] [address] Dec, [facility] [id number] [id number] Dec, [facility] [id number] [place] [address] [id number] Nov, Phantom pain R52 [facility] [id number] [place] [address] [id number] Nov, Diabetes type 2, uncontrolled E11.65 and BMI 40.0-44.9, adult Z68.41 [facility] [id number] [place] [address] [id number] Oct, Anaphylactic reaction to bee sting, accidental or unintentional, initial encounter T63.441A ; Pain in right shoulder M25.511 and Other chronic pain G89.[address] [place] [address] [id number] Oct, Diabetes type 2, uncontrolled E11.65 [place] [id number] [place] [address] [id number] Oct, Diabetes type 2, uncontrolled E11.65 and Cellulitis of left lower extremity L03.116 [place] [id number] [place] [address] [id number] Oct, Phantom pain R52 [facility] [address]00565100[place], [place] [address] Sep, Onychomycosis B35.1 ; Impaired circulation of left leg I99.9 and DM neuro manif type II E11.[address] [place] [address] [id number] Sep, BMI 40.0-44.9, adult Z68.41 ; Skin ulcer of left lower leg, limited to breakdown of skin L97.921 ; Acute pain of left shoulder M25.512 ; DM neuro manif type II E11.49 ; Mild intermittent asthma without complication J45.20 and Phantom pain R52 [address] [place] [address] [id number] Sep, Phantom pain R52 [place] [id number] [place] [address] [id number] August, Phantom pain R52 [facility] [id number], [place] [id number] August, Acquired absence of right leg below knee Z89.511 [place] [id number], [place] [id number] August, Acquired absence of right leg below knee Z89.511 [place] [address] [address] August, Diabetes type 2, uncontrolled E11.65 [place] [address] [place] [id number] [place] [address] August, [place] [address] [address] August, [address] [place] [address] [id number] August, BMI 40.0-44.9, adult Z68.41 ; 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 and Acquired absence of right leg below knee Z89.511 [facility] [id number] [place] [address] August, [place] [id number] [place] [address] [id number] Jul, Skin ulcer of left lower leg, limited to breakdown of skin L97.921 [place] [id number] [place] [address] [id number] Jul, [address] [place] [address] [id number] Jul, BMI 40.0-44.9, adult Z68.41 ; Skin ulcer of left lower leg, limited to breakdown of skin L97.921 and DM neuro manif type II E11.49 [place] [address]00565[address], [place] [address] Jul, [place] [id number] [place] [address] [id number] Jul, [address]00565100[place] [id number] Jul, [address] [place] [address] [id number] Jun, Erectile dysfunction, unspecified erectile dysfunction type N52.9 [place] [address]00565100[place], [place] [address] Jun, [address] [place] [address] [id number] Jun, BMI 40.0-44.9, adult Z68.41 ; Diabetes type 2, uncontrolled E11.65 ; Phantom pain R52 ; Subluxation of right shoulder joint, sequela S43.001S and Erectile dysfunction, unspecified erectile dysfunction type N52.9 [place] [address] [place] [address] Jun, DM neuro manif type II E11.49 ; Onychomycosis B35.1 and Hammertoe of left foot M20.42 [place] [address]00565100[place], [place] [address] Jun, [id number] [place] [address] [id number] Jun, DM neuro manif type II E11.[address] [id number] [id number] Jun, DM neuro manif type II E11.49 [address] [place] [address] [id number] May, DM neuro manif type II E11.49 ; Venous insufficiency (chronic) (peripheral) I87.2 ; 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 ; Essential hypertension I10 and Phantom pain R52 [address] [place] [address] [id number] Apr, Diabetes type 2, uncontrolled E11.65 ; Acquired absence of right leg below knee Z89.511 ; Essential hypertension I10 ; Reflux esophagitis K21.0 and Phantom pain R52 [place] [id number] [place] [address] [id number] Apr, BMI 40.0-44.9, adult Z68.41 and Wheelchair bound Z99.3 [facility] [id number] [place] [address] [id number] Mar, [facility] [id number] [place] [address] [id number] Mar, BMI 40.0-44.9, adult Z68.41 ; Diabetes type 2, uncontrolled E11.65 ; Mild intermittent asthma without complication J45.20 ; Phantom pain R52 ; Reflux esophagitis K21.0 and Essential hypertension I10 [place] [id number] [place] [address] [id number] Feb, Phantom pain R52 [place] [id number] [place] [address] [id number] Feb, Phantom pain R52 and Acute pain of left shoulder M25.512 [place] [id number] [place] [address] [id number] Jan, Phantom pain R52 [facility] [id number] [place] [address] [id number] Jan, DM neuro manif type II E11.49 ; Cellulitis of left lower extremity L03.116 ; Obstructive sleep apnea syndrome G47.33 ; Thyroid disorder screen Z13.29 and Lipid screening Z13.220 [facility] [address] [place] [address] [id number] Jan, [place] [id number] [place] [address] [id number] Dec, DM neuro manif type II E11.49 ; Phantom pain R52 and Mild intermittent asthma without complication J45.20 [facility] [address] [place] [address] [id number] Dec, Wound of left lower extremity, subsequent encounter S81.802D [facility] [address] [place] [address] [id number] Nov, [facility] [address] [id number] [place] [address] Nov, [id number] [id number] Nov, DM neuro manif type II E11.49 ; Mild intermittent asthma without complication J45.20 ; Essential hypertension I10 and Phantom pain R52 [facility] [id number] [place] [address] [id number] Oct, Phantom pain R52 [facility] [id number] [place] [address] [id number] Sep, Phantom pain R52 ; DM neuro manif type II E11.49 and Essential hypertension I10 [facility] [id number] [place] [address] [id number] August, DM neuro manif type II E11.49 ; Phantom pain R52 and Essential hypertension I10 [facility] [id number] [place] [address] [id number] Jul, DM neuro manif type II E11.49 and Phantom pain R52 [facility] [id number] [place] [address] Jun, Onychomycosis B35.1 and DM neuro manif type II E11.49 [facility] [address] [place] [address] [id number] Jun, DM neuro manif type II E11.49 ; Phantom pain R52 ; Essential hypertension I10 and Diabetes with neurological manifestations, type II or unspecified type, not stated as uncontrolled 250.60 [facility] [id number] [place] [address] [id number] Apr, DM neuro manif type II E11.49 ; Phantom pain R52 ; Essential hypertension I10 and Mild intermittent asthma without complication J45.20 [facility] [id number], [place] [id number] Apr, Need for follow up care after discharge from healthcare facility Z92.89 and Wound of right lower extremity, subsequent encounter S81.801D [facility] [id number] [place] [address] [id number] Mar, Phantom pain R52 ; DM neuro manif type II E11.49 and Essential hypertension I10 [facility] [id number] [place] [address] [id number] Feb, DM neuro manif type II E11.49 ; Phantom pain R52 and Essential hypertension I10 [facility] [id number], [place] [id number] Jan, Phantom pain R52 and DM neuro manif type II E11.49 [facility] [address] [facility] [id number] [id number] Dec, [facility] [id number] [place] [address] [id number] Dec, DM neuro manif type II E11.49 ; Phantom pain R52 ; Mild intermittent asthma without complication J45.20 and Essential hypertension I10 [facility] [address] [id number], [place] [address] Dec, Onychomycosis B35.1 ; Xerosis of skin L85.3 and DM neuro manif type II E11.49 [facility] [id number] [place] [address] [id number] Nov, Acquired absence of right leg below knee Z89.511 [facility] [id number] [place] [address] [id number] Nov, [facility] [id number] [place] [address] [id number] Nov, [facility] [id number] [place] [address] [id number] Sep, [facility] [id number] [place] [address] [id number] Sep, Diabetes type 2, uncontrolled E11.65 ; Leg wound, left, initial encounter S81.802A and Erectile disorder due to medical condition in male N52.1 [facility] [id number], [place] [id number] Sep, [facility] [address] [id number] [place] [address] [id number] Jul, [facility] [id number] [place] [address] [id number] Jul, [facility] [id number] [place] [address] [id number] Jul, [facility] [id number] [place] [address] [id number] Jul, 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 ; Varicose vein of leg I83.93 ; Diabetes type 2, uncontrolled E11.65 and Chronic pain G89.29 [facility] [id number] [place] [address] [id number] Jul, [facility] [id number] [place] [address] [id number] Jul, Diabetes with neurological manifestations, type II or unspecified type, not stated as uncontrolled 250.60 [facility] [id number] [place] [address] [id number] Jul, [place] [address] [address] [id number] [place] [address] [id number] Jul, [facility] [id number] [place] [address] [id number] Jun, Diabetes type 2, uncontrolled E11.65 [place] [id number] [place] [address] [id number] Jun, Pain in right knee M25.561 ; Pain in left knee M25.562 ; Other chronic pain G89.29 and Primary osteoarthritis of both knees M17.0 [place] [address] [place] [address] [id number] Apr, Diabetes type 2, uncontrolled E11.65 ; Puncture wound of foot, left, initial encounter S91.332A and Encounter for immunization Z23 [place] [id number] [place] [address] [id number] Apr, [facility] [id number] [place] [address] [id number] Apr, [facility] [id number] [place] [address] [id number] Feb, Acquired absence of right leg below knee Z89.511 [place] [address] [place] [address] [place] [address] [id number] Feb, Acquired absence of right leg below knee Z89.511 [place] [id number] [place] [address] [id number] Feb, Diabetes type 2, uncontrolled E11.65 and Acquired absence of right leg below knee Z89.511 [facility] [id number] [place] [address] [id number] Jan, [facility] [address] [address] [id number] [place] [address] [id number] Jan, [facility] [address], [place] [address] Jan, [facility] [id number] [place] [address] [id number] Jan, [facility] [id number] [place] [address] [id number] Dec, [place] [address] [place] [id number] [place] [address] [id number] Dec, Diabetes with neurological manifestations, type II or unspecified type, not stated as uncontrolled 250.60 and Open wound of foot except toe(s) alone, without mention of complication 892.0 [facility] [address] [address] [id number] [place] [address] [id number] Dec, [facility] [id number] [place] [address] [id number] Nov, [facility] [address] [address] [id number] [place] [address] [id number] Nov, Cellulitis of foot 682.7 [place] [address] [place] [id number] [place] [address] [id number] Oct, [place] [address] [place] [id number] [place] [address] [id number] Oct, Corneal abrasion 918.1 [facility] [id number] [place] [address] [id number] Oct, [place] [id number] [place] [address] [id number] Oct, [facility] [id number] [place] [address] [id number] August, [facility] [id number] [place] [address] [id number] August, [facility] [address] [place] [id number] [place] [address] [id number] August, [facility] [address] [facility] [id number] [id number] August, [facility] [address] [place] [id number], [place] [phone] August, Diabetes mellitus without mention of complication, type II or unspecified type, not stated as uncontrolled 250.00 [facility] [address], [place] [address] Jul, [facility] [address] [place] [address] [id number], [place] [address] Jul, [facility] [address] [place] [address] Apr, [facility] [address], [place] [address] Apr, [facility] [address], [place] [address] Mar, [facility] [address], [place] [address] Mar, [facility] [address], [place] [address] Mar, [facility] [address], [place] [address] Mar, [facility] [address], [place] [address] Mar, [facility] [address] [facility] [id number], [place] [address] Mar, [facility] [address] [facility] [id number][place] [id number] Mar, [facility] [address] [id number], [place] [address] Mar, [facility] [address] [id number], [place] [address] Mar, [facility] [place] [facility] [address] [id number] [place] [address] Mar, [facility] [place] [facility] [address] [id number] [place] [address] Mar, [facility] [place] [facility] [address] [facility] [id number] [place] [address] Mar, [facility] [place] [facility] [address] [facility] [id number] [place] [address] Mar, [facility] [address] [facility] [id number] [place] [id number] Mar, [facility] [place] [facility] [address] [facility] [id number] [place] [address] Jan, [facility] [address] [facility] [id number], [place] [id number] Jan, [facility] [place] [facility] [address] [facility] [id number] [place] [address] Jan, [facility] [place] [facility] [address] [facility] [id number], [place] [address] Jan, [facility] [place] [facility] [address] [facility] [id number], [place] [address] Jan, [facility] [address] [facility] [id number], [place] [id number] Jan, [facility] [place] [facility] [address] [facility] [id number], [place] [address] Dec, [facility] [address] [facility] [id number], [place] [id number] Nov, [facility] [place] [facility] [address] [id number], [place] [address] Nov, [facility] [address] [facility] [id number], [place] [address]230[address] Oct, [facility] [place] [facility] [address] [facility] [id number], [place] [address] Oct, [facility] [address] [facility] [id number], [place] [id number] Oct, [facility] [place] [facility] [address] [id number] [place] [address] Oct, [facility] [place] [facility] [address] [facility] [id number] [place] [address] August, [facility] [place] [facility] [address] [facility] [id number] [place] [address] August, [facility] [place] [facility] [address] [facility] [id number] [place] [address] August, [facility] [place] [facility] [address] [facility] [id number] [place] [address] August, [facility] [address] [facility] [id number], [place] [id number] Jul, [facility] [place] [facility] [address] [facility] [id number] [place] [address] Jul, [facility] [address] [facility] [id number], [place] [id number] Jun, [facility] [place] [facility] [address] [facility] [id number] [place] [address] Jun, [facility] [address] [facility] [id number], [place] [id number] Jun, [facility] [place] [facility] [address] [facility] [id number], [place] [address] Jun, [facility] [address] [facility] [id number], [place] [id number] Jun, [facility] [place] [facility] [address] [id number] [place] [address] Jun, [facility] [address] [facility] [id number] [place] [id number] Jun, [facility] [place] [facility] [address] [facility] [id number] [place] [address] Jun, [facility] [address] [id number], [place] [id number] May, [facility] [place] [facility] [address] [facility] [id number], [place] [address] May, [facility] [address] [facility] [id number], [place] [id number] May, [facility] [place] [facility] [address] [facility] [id number], [place] [address] May, [facility] [place] [facility] [address] [place] [address] May, [facility] [place] [facility] [address] [facility] [id number] [place] [address] May, [facility] [address] [facility] [id number], [place] [id number] May, [facility] [place] [facility] [address], [place] [address] May, [facility] [id number], [place] [id number] May, [facility] [place] [facility] [address]65[address], [place] [address] May, [facility] [place] [facility] [address]00565[address], [place] [address] Apr, [facility] [place] [facility] [address], [place] [address] Apr, [facility] [id number], [place] [id number] Apr, [facility] [place] [facility] [address] [facility] [id number], [place] [address] Apr, [facility] [address] [facility] [id number], [place] [id number] Sep, [facility] [place] [facility] [address] [facility] [id number], [place] [address] 16 Sep, 2012 [facility] [place] [address] [facility] [id number] [id number] 14 Sep, 2012 [facility] [place] [address] [facility] [id number][place] [id number] Sep, [facility] [address] [facility] [id number] [place] [address] Jun, [facility] [place] [address] [id number] [place] [id number] Nov, [facility] [place] [address] [id number] [place] [id number] Nov, [facility] [place] [address] [id number] [place] [id number] Nov, [facility] [place] [address] [id number] [place] [id number] Nov, [facility] [place] [address] [id number] [place] [id number] Nov, [facility] [place] [address] [id number] [place] [id number] Nov, [facility] [place] [address] [id number] [place] [id number] Nov, [facility] [place] [address] [id number] [place] [id number] Nov, [facility] [place] [address] [id number] [place] [id number] Nov, [facility] [place] [address] [id number] [place] [id number] Sep, [facility] [place] [address] [id number] [place] [id number] Sep, [facility] [place] [address] [id number] [place] [id number] Sep, [facility] [place] [address] [id number] [place] [id number] Sep, [facility] [place] [address] [id number] [place] [id number] August, [facility] [place] [address] [id number] [place] [id number] August, [facility] [place] [address] [id number] [place] [id number] August, [facility] [place] [address] [id number] [place] [id number] August, [facility] [address] [facility] [id number] [place] [address] Sep, IMMUNIZATIONS No Known Immunizations SOCIAL HISTORY Never Assessed REASON FOR VISIT BS f/u PLAN OF CARE VITAL SIGNS MEDICATIONS Medication Instructions Dosage Frequency Start Date End Date Duration Status Tresiba FlexTouch 200 UNIT/ML Subcutaneous at bedtime 156 units Sep, Active RESULTS No Results PROCEDURES No Known [...] Surgical History amputation right mid-calf/foot at [facility] 01/2015 Hospitalization History Yana Cedeno post [...]
--- OUTSIDE RECORDS SUMMARY | 2018-10-31 17:37 | XMS REPORT ---
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 Active 377949221 Problem Other chronic pain G89.29 Active 37750558 Problem Diabetes type 2, uncontrolled E11.65 Active 137206447 Problem Anaphylactic reaction to bee sting, accidental or unintentional, initial encounter T63.441A Active 329713003 Problem Skin ulcer of left lower leg, limited to breakdown of skin L97.921 Active 06987705 Problem Erectile dysfunction, unspecified erectile dysfunction type N52.9 Active 657215456 Problem Varicose veins of left lower extremity with ulcer other part of lower leg I83.028 Active 35242998 Problem 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 Active 535923587 Problem Phantom pain R52 Active 991281456 Problem Essential hypertension I10 Active 47635369 Problem DM neuro manif type II E11.49 Active 18529442 Problem Acquired absence of right leg below knee Z89.511 Active 621876167 Problem Cellulitis of left lower extremity L03.116 Active 917742136 Problem Acute pain of left shoulder M25.512 Active 80493430 Problem Mild intermittent asthma without complication J45.20 Active 503860928 Problem Reflux esophagitis K21.0 Active 954593634 Problem Obstructive sleep apnea syndrome G47.33 Active 35633865 Problem Hammertoe of left foot M20.42 Active 153184120 ALLERGIES No Information ENCOUNTERS Encounter Location Date Diagnosis [facility] [address] [facility] [id number], [place] [address] Dec, [facility] [id number] [id number] Dec, [facility] [id number] [place] [address] [id number] Nov, Phantom pain R52 [facility] [id number] [place] [address] [id number] Nov, Diabetes type 2, uncontrolled E11.65 and BMI 40.0-44.9, adult Z68.41 [facility] [id number] [place] [address] [id number] Oct, Anaphylactic reaction to bee sting, accidental or unintentional, initial encounter T63.441A ; Pain in right shoulder M25.511 and Other chronic pain G89.29 [address] [place] [address] [id number] Oct, Diabetes type 2, uncontrolled E11.65 [place] [id number] [place] [address] [id number] Oct, Diabetes type 2, uncontrolled E11.65 and Cellulitis of left lower extremity L03.116 [address] [id number] [place] [address] [id number] Oct, Phantom pain R52 [facility] [address]00565100[place], [place] [address] Sep, Onychomycosis B35.1 ; Impaired circulation of left leg I99.9 and DM neuro manif type II E11.[address] [place] [address] [id number] Sep, BMI 40.0-44.9, adult Z68.41 ; Skin ulcer of left lower leg, limited to breakdown of skin L97.921 ; Acute pain of left shoulder M25.512 ; DM neuro manif type II E11.49 ; Mild intermittent asthma without complication J45.20 and Phantom pain R52 [address] [place] [address] [id number] Sep, Phantom pain R52 [place] [id number] [place] [address] [id number] August, Phantom pain R52 [facility] [id number], [place] [id number] August, Acquired absence of right leg below knee Z89.511 [place] [id number], [place] [id number] August, Acquired absence of right leg below knee Z89.511 [place] [address] [address] August, Diabetes type 2, uncontrolled E11.65 [place] [address] [place] [id number] [place] [address] August, [place] [address] [address] August, [address] [place] [address] [id number] August, BMI 40.0-44.9, adult Z68.41 ; 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 and Acquired absence of right leg below knee Z89.511 [facility] [address] [id number] [place] [address] August, [place] [id number] [place] [address] [id number] Jul, Skin ulcer of left lower leg, limited to breakdown of skin L97.921 [place] [id number] [place] [address] [id number] Jul, [address] [place] [address] [id number] Jul, BMI 40.0-44.9, adult Z68.41 ; Skin ulcer of left lower leg, limited to breakdown of skin L97.921 and DM neuro manif type II E11.49 [place] [address]00565[address], [place] [address] Jul, [place] [id number] [place] [address] [id number] Jul, [address]00565[address] [id number] Jul, [address] [place] [address] [id number] Jun, Erectile dysfunction, unspecified erectile dysfunction type N52.9 [place] [address]00565100[place], [place] [address] Jun, [address] [place] [address] [id number] Jun, BMI 40.0-44.9, adult Z68.41 ; Diabetes type 2, uncontrolled E11.65 ; Phantom pain R52 ; Subluxation of right shoulder joint, sequela S43.001S and Erectile dysfunction, unspecified erectile dysfunction type N52.9 [place] [address] [place] [address] Jun, DM neuro manif type II E11.49 ; Onychomycosis B35.1 and Hammertoe of left foot M20.42 [place] [address]00565100[place], [place] [address] Jun, [id number] [place] [address] [phone] Jun, DM neuro manif type II E11.[address] [id number] [phone] Jun, DM neuro manif type II E11.49 [address] [place] [address] [id number] May, DM neuro manif type II E11.49 ; Venous insufficiency (chronic) (peripheral) I87.2 ; 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 ; Essential hypertension I10 and Phantom pain R52 [address] [place] [address] [id number] Apr, Diabetes type 2, uncontrolled E11.65 ; Acquired absence of right leg below knee Z89.511 ; Essential hypertension I10 ; Reflux esophagitis K21.0 and Phantom pain R52 [place] [address] [place] [address] [id number] Apr, BMI 40.0-44.9, adult Z68.41 and Wheelchair bound Z99.3 [facility] [id number] [place] [address] [id number] Mar, [facility] [id number] [place] [address] [id number] Mar, BMI 40.0-44.9, adult Z68.41 ; Diabetes type 2, uncontrolled E11.65 ; Mild intermittent asthma without complication J45.20 ; Phantom pain R52 ; Reflux esophagitis K21.0 and Essential hypertension I10 [place] [address] [place] [address] [id number] Feb, Phantom pain R52 [place] [address] [place] [address] [id number] Feb, Phantom pain R52 and Acute pain of left shoulder M25.512 [place] [address] [place] [address] [id number] Jan, Phantom pain R52 [facility] [id number] [place] [address] [id number] Jan, DM neuro manif type II E11.49 ; Cellulitis of left lower extremity L03.116 ; Obstructive sleep apnea syndrome G47.33 ; Thyroid disorder screen Z13.29 and Lipid screening Z13.220 [facility] [address] [place] [address] [id number] Jan, [place] [address] [place] [address] [id number] Dec, DM neuro manif type II E11.49 ; Phantom pain R52 and Mild intermittent asthma without complication J45.20 [facility] [address] [place] [address] [id number] Dec, Wound of left lower extremity, subsequent encounter S81.802D [facility] [address] [place] [address] [id number] Nov, [facility] [id number] [place] [address] Nov, [place] [address] [phone] Nov, DM neuro manif type II E11.49 ; Mild intermittent asthma without complication J45.20 ; Essential hypertension I10 and Phantom pain R52 [facility] [id number] [place] [address] [id number] Oct, Phantom pain R52 [facility] [id number] [place] [address] [id number] Sep, Phantom pain R52 ; DM neuro manif type II E11.49 and Essential hypertension I10 [facility] [id number] [place] [address] [id number] August, DM neuro manif type II E11.49 ; Phantom pain R52 and Essential hypertension I10 [facility] [id number] [place] [address] [id number] Jul, DM neuro manif type II E11.49 and Phantom pain R52 [facility] [id number] [place] [address] Jun, Onychomycosis B35.1 and DM neuro manif type II E11.49 [facility] [address] [place] [address] [id number] Jun, DM neuro manif type II E11.49 ; Phantom pain R52 ; Essential hypertension I10 and Diabetes with neurological manifestations, type II or unspecified type, not stated as uncontrolled 250.60 [facility] [id number] [place] [address] [id number] Apr, DM neuro manif type II E11.49 ; Phantom pain R52 ; Essential hypertension I10 and Mild intermittent asthma without complication J45.20 [facility] [id number], [place] [phone] Apr, Need for follow up care after discharge from healthcare facility Z92.89 and Wound of right lower extremity, subsequent encounter S81.801D [facility] [id number] [place] [address] [id number] Mar, Phantom pain R52 ; DM neuro manif type II E11.49 and Essential hypertension I10 [facility] [id number] [place] [address] [id number] Feb, DM neuro manif type II E11.49 ; Phantom pain R52 and Essential hypertension I10 [facility] [id number], [place] [id number] Jan, Phantom pain R52 and DM neuro manif type II E11.49 [facility] [address] [facility] [id number][place] [phone] Dec, [facility] [id number] [place] [address] [id number] Dec, DM neuro manif type II E11.49 ; Phantom pain R52 ; Mild intermittent asthma without complication J45.20 and Essential hypertension I10 [facility] [address] [id number], [place] [address] Dec, Onychomycosis B35.1 ; Xerosis of skin L85.3 and DM neuro manif type II E11.49 [facility] [id number] [place] [address] [id number] Nov, Acquired absence of right leg below knee Z89.511 [facility] [id number] [place] [address] [id number] Nov, [facility] [id number] [place] [address] [id number] Nov, [facility] [id number] [place] [address] [id number] Sep, [facility] [id number] [place] [address] [id number] Sep, Diabetes type 2, uncontrolled E11.65 ; Leg wound, left, initial encounter S81.802A and Erectile disorder due to medical condition in male N52.1 [facility] [id number], [place] [id number] Sep, [facility] [id number] [place] [address] [id number] Jul, [facility] [id number] [place] [address] [id number] Jul, [facility] [id number] [place] [address] [id number] Jul, [facility] [id number] [place] [address] [id number] Jul, 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 ; Varicose vein of leg I83.93 ; Diabetes type 2, uncontrolled E11.65 and Chronic pain G89.29 [facility] [id number] [place] [address] [id number] Jul, [facility] [id number] [place] [address] [id number] Jul, Diabetes with neurological manifestations, type II or unspecified type, not stated as uncontrolled 250.60 [facility] [id number] [place] [address] [id number] Jul, [place] [id number] [place] [address] [id number] Jul, [facility] [id number] [place] [address] [id number] Jun, Diabetes type 2, uncontrolled E11.65 [place] [address] [place] [address] [id number] Jun, Pain in right knee M25.561 ; Pain in left knee M25.562 ; Other chronic pain G89.29 and Primary osteoarthritis of both knees M17.0 [place] [address] [place] [address] [id number] Apr, Diabetes type 2, uncontrolled E11.65 ; Puncture wound of foot, left, initial encounter S91.332A and Encounter for immunization Z23 [place] [address] [place] [address] [id number] Apr, [facility] [id number] [place] [address] [id number] Apr, [facility] [id number] [place] [address] [id number] Feb, Acquired absence of right leg below knee Z89.511 [place] [id number] [place] [address] [id number] Feb, Acquired absence of right leg below knee Z89.511 [place] [address] [place] [address] [id number] Feb, Diabetes type 2, uncontrolled E11.65 and Acquired absence of right leg below knee Z89.511 [facility] [id number] [place] [address] [id number] Jan, [facility] [id number] [place] [address] [id number] Jan, [facility] [address]005[address], [place] [address] Jan, [facility] [id number] [place] [address] [id number] Jan, [facility] [id number] [place] [address] [phone] Dec, [place] [address] [place] [address] [id number] [place] [address] [id number] Dec, Diabetes with neurological manifestations, type II or unspecified type, not stated as uncontrolled 250.60 and Open wound of foot except toe(s) alone, without mention of complication 892.0 [facility] [id number] [place] [address] [id number] Dec, [facility] [id number] [place] [address] [id number] Nov, [facility] [id number] [place] [address] [id number] Nov, Cellulitis of foot 682.7 [place] [address] [place] [id number] [place] [address] [phone] Oct, [place] [address] [id number] [place] [address] [id number] Oct, Corneal abrasion 918.1 [facility] [id number] [place] [address] [phone] Oct, [place] [id number] [place] [address] [phone] Oct, [facility] [id number] [place] [address] [id number] August, [facility] [id number] [place] [address] [id number] August, [facility] [id number] [place] [address] [phone] August, [facility] [address] [facility] [id number] [phone] August, [facility] [address] [id number] [phone] August, Diabetes mellitus without mention of complication, type II or unspecified type, not stated as uncontrolled 250.00 [facility] [address], [place] [address] Jul, [facility] [address] [place] [address] [id number], [place] [address] Jul, [facility] [address] [place] [address] Apr, [facility] [address]005[address], [place] [address] Apr, [facility] [address], [place] [address] Mar, [facility] [address], [place] [address] Mar, [facility] [address]005[address], [place] [address] Mar, [facility] [address]005[address], [place] [address] Mar, [facility] [address]00565100[place], [place] [address] Mar, [facility] [address] [facility] [id number], [place] [address] Mar, [facility] [address] [facility] [id number], [place] [id number] Mar, [facility] [address] [id number], [place] [address] Mar, [facility] [address] [id number], [place] [address] Mar, [facility] [place] [facility] [address] [id number] [place] [address] Mar, [facility] [place] [facility] [address] [id number] [place] [address] Mar, [facility] [place] [facility] [address] [facility] [id number] [place] [address] Mar, [facility] [place] [facility] [address] [facility] [id number] [place] [address] Mar, [facility] [address] [facility] [id number] [place] [id number] Mar, [facility] [place] [facility] [address] [facility] [id number] [place] [address] Jan, [facility] [address] [facility] [id number], [place] [id number] Jan, [facility] [place] [facility] [address] [facility] [id number] [place] [address] Jan, [facility] [place] [facility] [address] [facility] [id number], [place] [address] Jan, [facility] [place] [facility] [address] [facility] [id number], [place] [address] Jan, [facility] [address] [facility] [id number], [place] [id number] Jan, [facility] [place] [facility] [address] [facility] [id number], [place] [address] Dec, [facility] [address] [facility] [id number], [place] [id number] Nov, [facility] [place] [facility] [address] [id number], [place] [address] Nov, [facility] [address] [facility] [id number], [place] [id number] Oct, [facility] [place] [facility] [address] [facility] [id number], [place] [address] Oct, [facility] [address] [facility] [id number][place] [id number] Oct, [facility] [place] [facility] [address] [id number] [place] [address] Oct, [facility] [place] [facility] [address] [facility] [id number] [place] [address] August, [facility] [place] [facility] [address] [facility] [id number] [place] [address] August, [facility] [place] [facility] [address] [facility] [id number] [place] [address] August, [facility] [place] [facility] [address] [facility] [id number] [place] [address] August, [facility] [address] [facility] [id number][place] [id number] Jul, [facility] [place] [facility] [address] [facility] [id number] [place] [address] Jul, [facility] [address] [facility] [id number][place] [id number] Jun, [facility] [place] [facility] [address] [facility] [id number] [place] [address] Jun, [facility] [address] [facility] [id number], [place] [id number] Jun, [facility] [place] [facility] [address] [facility] [id number], [place] [address] Jun, [facility] [address] [facility] [id number], [place] [id number] Jun, [facility] [place] [facility] [address] [id number] [place] [address] Jun, [facility] [address] [facility] [id number] [place] [id number] Jun, [facility] [place] [facility] [address] [facility] [id number] [place] [address] Jun, [facility] [address] [id number], [place] [id number] May, [facility] [place] [facility] [address] [facility] [id number], [place] [address] May, [facility] [address] [facility] [id number], [place] [id number] May, [facility] [place] [facility] [address] [facility] [id number], [place] [address] May, [facility] [place] [facility] [address] [place] [address] May, [facility] [place] [facility] [address] [facility] [id number] [place] [address] May, [facility] [address] [facility] [id number], [place] [id number] May, [facility] [place] [facility] [address]00565100[place], [place] [address] May, [facility] [id number], [place] [id number] May, [facility] [place] [facility] [address]00565100[place], [place] [address] May, [facility] [place] [facility] [address]00565100[place], [place] [address] Apr, [facility] [place] [facility] [address]005[address]100[place], [place] [address] Apr, [facility] [id number], [place] [id number] Apr, [facility] [place] [facility] [address] [facility] [id number], [place] [address] Apr, [facility] [address] [facility] [id number] [id number] Sep, [facility] [place] [facility] [address] [facility] [id number], [place] [address] 16 Sep, 2012 [facility] [place] [address] [facility] [id number][place] [id number] 14 Sep, 2012 [facility] [place] [address] [facility] [id number] [id number] Sep, [facility] [address] [facility] [id number] [place] [address] Jun, [facility] [place] [address] [id number] [place] [id number] Nov, [facility] [place] [address] [id number] [place] [id number] Nov, [facility] [place] [address] [id number] [place] [id number] Nov, [facility] [place] [address] [id number] [place] [id number] Nov, [facility] [place] [address] [id number] [place] [id number] Nov, [facility] [place] [address] [id number] [place] [id number] Nov, [facility] [place] [address] [id number] [place] [id number] Nov, [facility] [place] [address] [id number] [place] [id number] Nov, [facility] [place] [address] [id number] [place] [id number] Nov, [facility] [place] [address] [id number] [place] [id number] Sep, [facility] [place] [address] [id number] [place] [id number] Sep, [facility] [place] [address] [id number] [place] [id number] Sep, [facility] [place] [address] [id number] [place] [id number] Sep, [facility] [place] [address] [id number] [place] [id number] August, [facility] [place] [address] [id number] [place] [id number] August, [facility] [place] [address] [id number] [place] [id number] August, [facility] [place] [address] [id number] [place] [id number] August, [facility] [address] [facility] [id number] [place] [address] Sep, IMMUNIZATIONS No Known Immunizations SOCIAL HISTORY Never Assessed REASON FOR VISIT PLAN OF CARE VITAL SIGNS MEDICATIONS Medication Instructions Dosage Frequency Start Date End Date Duration Status Knee Compression Sleeve/L/XL - sleeve and liner August, Active RESULTS No Results PROCEDURES No Known [...] 11/2014 Surgical History amputation right mid-calf/foot at [facility] 01/2015 Hospitalization History [facility] post op infection to right foot, amputations to mid-calf 01/2015 Hospitalization History [facility] In post-op 7 days, discharges with home health -02/2015 Hospitalization History [facility] visit for sore on right stump 04/2016 [facility]ization History [facility] wound on left lower leg, culture +for Strep G 12/2016
--- OUTSIDE RECORDS SUMMARY | 2018-10-31 17:38 | XMS REPORT ---
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 Active 961282935 Problem Other chronic pain G89.29 Active 95517406 Problem Diabetes type 2, uncontrolled E11.65 Active 084512323 Problem Anaphylactic reaction to bee sting, accidental or unintentional, initial encounter T63.441A Active 685179631 Problem Skin ulcer of left lower leg, limited to breakdown of skin L97.921 Active 29836263 Problem Erectile dysfunction, unspecified erectile dysfunction type N52.9 Active 757227252 Problem Varicose veins of left lower extremity with ulcer other part of lower leg I83.028 Active 96431458 Problem 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 Active 404049167 Problem Phantom pain R52 Active 821774732 Problem Essential hypertension I10 Active 14284736 Problem DM neuro manif type II E11.49 Active 91536911 Problem Acquired absence of right leg below knee Z89.511 Active 690600957 Problem Cellulitis of left lower extremity L03.116 Active 039473431 Problem Acute pain of left shoulder M25.512 Active 94060857 Problem Mild intermittent asthma without complication J45.20 Active 589449221 Problem Reflux esophagitis K21.0 Active 720104847 Problem Obstructive sleep apnea syndrome G47.33 Active 87803749 Problem Hammertoe of left foot M20.42 Active 795681466 ALLERGIES No Information ENCOUNTERS Encounter Location Date Diagnosis [facility] [address] [facility] [id number] [address] Dec, [facility] [id number] [id number] Dec, [facility] [id number] [place] [address] [id number] Nov, Phantom pain R52 [facility] [id number] [place] [address] [id number] Nov, Diabetes type 2, uncontrolled E11.65 and BMI 40.0-44.9, adult Z68.41 [facility] [id number] [place] [address] [id number] Oct, Anaphylactic reaction to bee sting, accidental or unintentional, initial encounter T63.441A ; Pain in right shoulder M25.511 and Other chronic pain G89.29 [address] [place] [address] [id number] Oct, Diabetes type 2, uncontrolled E11.65 [place] [id number] [place] [address] [id number] Oct, Diabetes type 2, uncontrolled E11.65 and Cellulitis of left lower extremity L03.116 [place] [id number] [place] [address] [id number] Oct, Phantom pain R52 [facility] [address]00565100[place], [place] [address] Sep, Onychomycosis B35.1 ; Impaired circulation of left leg I99.9 and DM neuro manif type II E11.49 [address] [place] [address] [id number] Sep, BMI 40.0-44.9, adult Z68.41 ; Skin ulcer of left lower leg, limited to breakdown of skin L97.921 ; Acute pain of left shoulder M25.512 ; DM neuro manif type II E11.49 ; Mild intermittent asthma without complication J45.20 and Phantom pain R52 [address] [place] [address] [id number] Sep, Phantom pain R52 [place] [id number] [place] [address] [id number] August, Phantom pain R52 [facility] [id number][place] [id number] August, Acquired absence of right leg below knee Z89.511 [place] [id number][place] [id number] August, Acquired absence of right leg below knee Z89.511 [place] [address] [address] August, Diabetes type 2, uncontrolled E11.65 [place] [address] [place] [id number] [place] [address] August, [place] [address] [address] August, [address] [place] [address] [id number] August, BMI 40.0-44.9, adult Z68.41 ; 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 and Acquired absence of right leg below knee Z89.511 [facility] [address] [id number] [place] [address] August, [place] [id number] [place] [address] [id number] Jul, Skin ulcer of left lower leg, limited to breakdown of skin L97.921 [place] [id number] [place] [address] [id number] Jul, [address] [place] [address] [id number] Jul, BMI 40.0-44.9, adult Z68.41 ; Skin ulcer of left lower leg, limited to breakdown of skin L97.921 and DM neuro manif type II E11.49 [place] [address]00565100[place], [place] [address] Jul, [place] [id number] [place] [address] [id number] Jul, [address]00565[place] [id number] Jul, [address] [place] [address] [id number] Jun, Erectile dysfunction, unspecified erectile dysfunction type N52.9 [place] [address]00565100[place], [place] [address] Jun, [address] [place] [address] [id number] Jun, BMI 40.0-44.9, adult Z68.41 ; Diabetes type 2, uncontrolled E11.65 ; Phantom pain R52 ; Subluxation of right shoulder joint, sequela S43.001S and Erectile dysfunction, unspecified erectile dysfunction type N52.9 [place] [address] [place] [address] Jun, DM neuro manif type II E11.49 ; Onychomycosis B35.1 and Hammertoe of left foot M20.42 [place] [address]00565100[place], [place] [address] Jun, [id number] [place] [address] [id number] Jun, DM neuro manif type II E11.[address] [id number] [phone] Jun, DM neuro manif type II E11.49 [address] [place] [address] [id number] May, DM neuro manif type II E11.49 ; Venous insufficiency (chronic) (peripheral) I87.2 ; 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 ; Essential hypertension I10 and Phantom pain R52 [address] [place] [address] [id number] Apr, Diabetes type 2, uncontrolled E11.65 ; Acquired absence of right leg below knee Z89.511 ; Essential hypertension I10 ; Reflux esophagitis K21.0 and Phantom pain R52 [place] [id number] [place] [address] [id number] Apr, BMI 40.0-44.9, adult Z68.41 and Wheelchair bound Z99.3 [facility] [id number] [place] [address] [id number] Mar, [facility] [id number] [place] [address] [id number] Mar, BMI 40.0-44.9, adult Z68.41 ; Diabetes type 2, uncontrolled E11.65 ; Mild intermittent asthma without complication J45.20 ; Phantom pain R52 ; Reflux esophagitis K21.0 and Essential hypertension I10 [place] [id number] [place] [address] [id number] Feb, Phantom pain R52 [place] [id number] [place] [address] [id number] Feb, Phantom pain R52 and Acute pain of left shoulder M25.512 [place] [id number] [place] [address] [id number] Jan, Phantom pain R52 [facility] [address] [address] [id number] [place] [address] [id number] Jan, DM neuro manif type II E11.49 ; Cellulitis of left lower extremity L03.116 ; Obstructive sleep apnea syndrome G47.33 ; Thyroid disorder screen Z13.29 and Lipid screening Z13.220 [facility] [address] [place] [address] [id number] Jan, [place] [id number] [place] [address] [id number] Dec, DM neuro manif type II E11.49 ; Phantom pain R52 and Mild intermittent asthma without complication J45.20 [facility] [address] [place] [address] [id number] Dec, Wound of left lower extremity, subsequent encounter S81.802D [facility] [address] [place] [address] [id number] Nov, [facility] [address] [place] [id number] [place] [address] Nov, [id number] [id number] Nov, DM neuro manif type II E11.49 ; Mild intermittent asthma without complication J45.20 ; Essential hypertension I10 and Phantom pain R52 [facility] [id number] [place] [address] [id number] Oct, Phantom pain R52 [facility] [address] [address] [id number] [place] [address] [id number] Sep, Phantom pain R52 ; DM neuro manif type II E11.49 and Essential hypertension I10 [facility] [id number] [place] [address] [id number] August, DM neuro manif type II E11.49 ; Phantom pain R52 and Essential hypertension I10 [facility] [address] [id number] [place] [address] [id number] Jul, DM neuro manif type II E11.49 and Phantom pain R52 [facility] [address] [id number] [place] [address] Jun, Onychomycosis B35.1 and DM neuro manif type II E11.49 [facility] [address] [place] [address] [id number] Jun, DM neuro manif type II E11.49 ; Phantom pain R52 ; Essential hypertension I10 and Diabetes with neurological manifestations, type II or unspecified type, not stated as uncontrolled 250.60 [facility] [id number] [place] [address] [id number] Apr, DM neuro manif type II E11.49 ; Phantom pain R52 ; Essential hypertension I10 and Mild intermittent asthma without complication J45.20 [facility] [id number], [place] [id number] Apr, Need for follow up care after discharge from healthcare facility Z92.89 and Wound of right lower extremity, subsequent encounter S81.801D [facility] [id number] [place] [address] [id number] Mar, Phantom pain R52 ; DM neuro manif type II E11.49 and Essential hypertension I10 [facility] [id number] [place] [address] [id number] Feb, DM neuro manif type II E11.49 ; Phantom pain R52 and Essential hypertension I10 [facility] [id number][place] [id number] Jan, Phantom pain R52 and DM neuro manif type II E11.49 [facility] [address] [facility] [id number][place] [id number] Dec, [facility] [address] [address] [id number] [place] [address] [id number] Dec, DM neuro manif type II E11.49 ; Phantom pain R52 ; Mild intermittent asthma without complication J45.20 and Essential hypertension I10 [facility] [address] [place] [address] [id number], [place] [address] Dec, Onychomycosis B35.1 ; Xerosis of skin L85.3 and DM neuro manif type II E11.49 [facility] [id number] [place] [address] [id number] Nov, Acquired absence of right leg below knee Z89.511 [facility] [address] [address] [id number] [place] [address] [id number] Nov, [facility] [id number] [place] [address] [id number] Nov, [facility] [address] [address] [id number] [place] [address] [id number] Sep, [facility] [address] [address] [id number] [place] [address] [id number] Sep, Diabetes type 2, uncontrolled E11.65 ; Leg wound, left, initial encounter S81.802A and Erectile disorder due to medical condition in male N52.1 [facility] [id number], [place] [id number] Sep, [facility] [address] [address] [id number] [place] [address] [id number] Jul, [facility] [address] [id number] [place] [address] [id number] Jul, [facility] [id number] [place] [address] [id number] Jul, [facility] [address] [address] [id number] [place] [address] [id number] Jul, 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 ; Varicose vein of leg I83.93 ; Diabetes type 2, uncontrolled E11.65 and Chronic pain G89.29 [facility] [address] [id number] [place] [address] [id number] Jul, [facility] [address] [address] [id number] [place] [address] [id number] Jul, Diabetes with neurological manifestations, type II or unspecified type, not stated as uncontrolled 250.60 [facility] [address] [id number] [place] [address] [id number] Jul, [place] [address] [place] [address] [id number] [place] [address] [id number] Jul, [facility] [id number] [place] [address] [id number] Jun, Diabetes type 2, uncontrolled E11.65 [place] [id number] [place] [address] [id number] Jun, Pain in right knee M25.561 ; Pain in left knee M25.562 ; Other chronic pain G89.29 and Primary osteoarthritis of both knees M17.0 [place] [address] [place] [address] [id number] Apr, Diabetes type 2, uncontrolled E11.65 ; Puncture wound of foot, left, initial encounter S91.332A and Encounter for immunization Z23 [place] [id number] [place] [address] [id number] Apr, [facility] [id number] [place] [address] [id number] Apr, [facility] [id number] [place] [address] [id number] Feb, Acquired absence of right leg below knee Z89.511 [place] [address] [place] [id number] [place] [address] [id number] Feb, Acquired absence of right leg below knee Z89.511 [place] [id number] [place] [address] [id number] Feb, Diabetes type 2, uncontrolled E11.65 and Acquired absence of right leg below knee Z89.511 [facility] [id number] [place] [address] [id number] Jan, [facility] [address] [address] [id number] [place] [address] [id number] Jan, [facility] [address]00565100[place], [place] [address] Jan, [facility] [address] [address] [id number] [place] [address] [id number] Jan, [facility] [id number] [place] [address] [id number] Dec, [place] [address] [place] [id number] [place] [address] [id number] Dec, Diabetes with neurological manifestations, type II or unspecified type, not stated as uncontrolled 250.60 and Open wound of foot except toe(s) alone, without mention of complication 892.0 [facility] [address] [place] [address] [id number] [place] [address] [id number] Dec, [facility] [id number] [place] [address] [id number] Nov, [facility] [address] [address] [id number] [place] [address] [id number] Nov, Cellulitis of foot 682.7 [place] [address] [place] [id number] [place] [address] [id number] Oct, [place] [address] [place] [id number] [place] [address] [id number] Oct, Corneal abrasion 918.1 [facility] [id number] [place] [address] [id number] Oct, [place] [id number] [place] [address] [id number] Oct, [facility] [id number] [place] [address] [id number] August, [facility] [id number] [place] [address] [id number] August, [facility] [address] [place] [id number] [place] [address] [id number] August, [facility] [place] [address] [facility] [id number][place] [id number] August, [facility] [place] [address] [place] [id number] [id number] August, Diabetes mellitus without mention of complication, type II or unspecified type, not stated as uncontrolled 250.00 [facility] [address]00565100[place], [place] [address] Jul, [facility] [address] [place] [id number], [place] [address] Jul, [facility] [address] [place] [address] Apr, [facility] [address]00565100[place], [place] [address] Apr, [facility] [address]00565100[place], [place] [address] Mar, [facility] [address]00565100[place], [place] [address] Mar, [facility] [address]00565100[place], [place] [address] Mar, [facility] [address]00565100[place], [place] [address] Mar, [facility] [address]00565100[place], [place] [address] Mar, [facility] [address] [facility] [id number], [place] [address] Mar, [facility] [place] [address] [facility] [id number][place] [id number] Mar, [facility] [address] [place] [id number], [place] [address] Mar, [facility] [address] [place] [id number], [place] [address] Mar, [facility] [place] [facility] [address] [id number] [place] [address] Mar, [facility] [place] [facility] [address] [id number] [place] [address] Mar, [facility] [place] [facility] [address] [facility] [id number] [place] [address] Mar, [facility] [place] [facility] [address] [facility] [id number] [place] [address] Mar, [facility] [address] [facility] [id number] [place] [id number] Mar, [facility] [place] [facility] [address] [facility] [id number] [place] [address] Jan, [facility] [address] [facility] [id number][place] [id number] Jan, [facility] [place] [facility] [address] [facility] [id number] [place] [address] Jan, [facility] [place] [facility] [address] [facility] [id number], [place] [address] Jan, [facility] [place] [facility] [address] [facility] [id number], [place] [address] Jan, [facility] [address] [facility] [id number], [place] [id number] Jan, [facility] [place] [facility] [address] [facility] [id number], [place] [address] Dec, [facility] [address] [facility] [id number], [place] [address] Nov, [facility] [place] [facility] [address] [id number], [place] [address] Nov, [facility] [address] [facility] [id number][place] [id number] Oct, [facility] [place] [facility] [address] [facility] [id number], [place] [address] Oct, [facility] [address] [facility] [id number][place] [id number] Oct, [facility] [place] [facility] [address] [id number] [place] [address] Oct, [facility] [place] [facility] [address] [facility] [id number] [place] [address] August, [facility] [place] [facility] [address] [facility] [id number] [place] [address] August, [facility] [place] [facility] [address] [facility] [id number] [place] [address] August, [facility] [place] [facility] [address] [facility] [id number] [place] [address] August, [facility] [address] [facility] [id number][place] [address] Jul, [facility] [place] [facility] [address] [facility] [id number] [place] [address] Jul, [facility] [address] [facility] [id number][place] [address] Jun, [facility] [place] [facility] [address] [facility] [id number] [place] [address] Jun, [facility] [address] [facility] [id number][place] [address] Jun, [facility] [place] [facility] [address] [facility] [id number], [place] [address] Jun, [facility] [address] [facility] [id number], [place] [address] Jun, [facility] [place] [facility] [address] [id number] [place] [address] Jun, [facility] [address] [facility] [id number] [place] [id number] Jun, [facility] [place] [facility] [address] [facility] [id number] [place] [address] Jun, [facility] [address] [id number], [place] [id number] May, [facility] [place] [facility] [address] [facility] [id number], [place] [address] May, [facility] [place] [address] [facility] [id number], [place] [address] May, [facility] [place] [facility] [address] [facility] [id number], [place] [address] May, [facility] [place] [facility] [id number] [place] [address] May, [facility] [place] [facility] [address] [facility] [id number] [place] [address] May, [facility] [address] [facility] [id number], [place] [address] May, [facility] [place] [facility] [address]00565100[place], [place] [address] May, [facility] [id number], [place] [id number] May, [facility] [place] [facility] [address]00565100[place], [place] [address] May, [facility] [place] [facility] [address]00565100[place], [place] [address] Apr, [facility] [place] [facility] [address]00565100[place], [place] [address] Apr, [facility] [id number], [place] [id number] Apr, [facility] [place] [facility] [address] [facility] [id number], [place] [address] Apr, [facility] [address] [facility] [id number], [place] [address] Sep, [facility] [place] [facility] [address] [facility] [id number], [place] [address] 16 Sep, 2012 [facility] [address] [facility] [id number], [place] [address] 14 Sep, 2012 [facility] [address] [facility] [id number][place] [id number] Sep, [facility] [address] [facility] [id number] [place] [address] Jun, [facility] [place] [address] [id number] [place] [id number] Nov, [facility] [place] [address] [id number] [place] [id number] Nov, [facility] [place] [address] [id number] [place] [id number] Nov, [facility] [place] [address] [id number] [place] [id number] Nov, [facility] [place] [address] [id number] [place] [id number] Nov, [facility] [place] [address] [id number] [place] [id number] Nov, [facility] [place] [address] [id number] [place] [id number] Nov, [facility] [place] [address] [id number] [place] [id number] Nov, [facility] [place] [address] [id number] [place] [id number] Nov, [facility] [place] [address] [id number] [place] [id number] Sep, [facility] [place] [address] [id number] [place] [id number] Sep, [facility] [place] [address] [id number] [place] [id number] Sep, [facility] [place] [address] [id number] [place] [id number] Sep, [facility] [place] [address] [id number] [place] [id number] August, [facility] [place] [address] [id number] [place] [id number] August, [facility] [place] [address] [id number] [place] [id number] August, [facility] [place] [address] [id number] [place] [id number] August, [facility] [address] [facility] [id number] [place] [address] Sep, IMMUNIZATIONS No Known Immunizations SOCIAL HISTORY Never Assessed REASON FOR VISIT RX PLAN OF CARE VITAL SIGNS MEDICATIONS Medication [...] 11/2014 Surgical History amputation right mid-calf/foot at [facility] 01/2015 Hospitalization History [facility] post [...]
--- OUTSIDE RECORDS SUMMARY | 2018-10-31 17:38 | XMS REPORT ---
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 Active 274695336 Problem Other chronic pain G89.29 Active 05116849 Problem Diabetes type 2, uncontrolled E11.65 Active 363620600 Problem Anaphylactic reaction to bee sting, accidental or unintentional, initial encounter T63.441A Active 152597083 Problem Skin ulcer of left lower leg, limited to breakdown of skin L97.921 Active 77876775 Problem Erectile dysfunction, unspecified erectile dysfunction type N52.9 Active 298756923 Problem Varicose veins of left lower extremity with ulcer other part of lower leg I83.028 Active 14245435 Problem 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 Active 366184591 Problem Phantom pain R52 Active 342242326 Problem Essential hypertension I10 Active 74791890 Problem DM neuro manif type II E11.49 Active 28525671 Problem Acquired absence of right leg below knee Z89.511 Active 767923947 Problem Cellulitis of left lower extremity L03.116 Active 150497657 Problem Acute pain of left shoulder M25.512 Active 77479612 Problem Mild intermittent asthma without complication J45.20 Active 297480875 Problem Reflux esophagitis K21.0 Active 812818751 Problem Obstructive sleep apnea syndrome G47.33 Active 25061260 Problem Hammertoe of left foot M20.42 Active [id number] ALLERGIES No Information ENCOUNTERS Encounter Location Date Diagnosis [facility] [place] [id number] [address] Dec, [facility] [id number] [place] [address] [id number] Dec, [facility] [id number] [place] [address] [id number] Nov, Phantom pain R52 [facility] [id number] [place] [address] [id number] Nov, Diabetes type 2, uncontrolled E11.65 and BMI 40.0-44.9, adult Z68.41 [facility] [address] [id number] Oct, Anaphylactic reaction to bee sting, accidental or unintentional, initial encounter T63.441A ; Pain in right shoulder M25.511 and Other chronic pain G89.29 [facility] [id number] [place] [address] [id number] Oct, Diabetes type 2, uncontrolled E11.65 [facility] [address] [id number] Oct, Diabetes type 2, uncontrolled E11.65 and Cellulitis of left lower extremity L03.[id number] [place] [address] [id number] Oct, Phantom pain R52 [facility] [place] [id number] [place] [address] Sep, Onychomycosis B35.1 ; Impaired circulation of left leg I99.9 and DM neuro manif type II E11.49 [facility] [id number] [place] [address] [id number] Sep, BMI 40.0-44.9, adult Z68.41 ; Skin ulcer of left lower leg, limited to breakdown of skin L97.921 ; Acute pain of left shoulder M25.512 ; DM neuro manif type II E11.49 ; Mild intermittent asthma without complication J45.20 and Phantom pain R52 [facility] [id number] [place] [address] [id number] Sep, Phantom pain R52 [facility] [address] [id number] August, Phantom pain R52 [facility] [id number] [place] [address] [id number] August, Acquired absence of right leg below knee Z89.511 [id number] [id number] August, Acquired absence of right leg below knee Z89.511 [address] [address] August, Diabetes type 2, uncontrolled E11.65 [address] [id number] [place] [address] August, [id number] [place] [address] August, [address] [place] [address] [id number] August, BMI 40.0-44.9, adult Z68.41 ; 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 and Acquired absence of right leg below knee Z89.511 [facility] [address] [id number] [place] [address] August, [address]005[address] [id number] Jul, Skin ulcer of left lower leg, limited to breakdown of skin L97.921 [address] [place] [address] [id number] Jul, [address] [place] [address] [id number] Jul, BMI 40.0-44.9, adult Z68.41 ; Skin ulcer of left lower leg, limited to breakdown of skin L97.921 and DM neuro manif type II E11.49 [facility] [place] [address] [address] Jul, [id number] [place] [address] [id number] Jul, [address] [id number] [id number] Jul, [address] [place] [address] [id number] Jun, Erectile dysfunction, unspecified erectile dysfunction type N52.9 [address] [address] Jun, [address] [place] [address] [id number] Jun, BMI 40.0-44.9, adult Z68.41 ; Diabetes type 2, uncontrolled E11.65 ; Phantom pain R52 ; Subluxation of right shoulder joint, sequela S43.001S and Erectile dysfunction, unspecified erectile dysfunction type N52.9 [address], [place] [address] Jun, DM neuro manif type II E11.49 ; Onychomycosis B35.1 and Hammertoe of left foot M20.42 [address] [address] Jun, [address] [id number] [id number] Jun, DM neuro manif type II E11.[address] [id number][place] [id number] Jun, DM neuro manif type II E11.49 [address] [id number] May, DM neuro manif type II E11.49 ; Venous insufficiency (chronic) (peripheral) I87.2 ; 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 ; Essential hypertension I10 and Phantom pain R52 [address] [id number] Apr, Diabetes type 2, uncontrolled E11.65 ; Acquired absence of right leg below knee Z89.511 ; Essential hypertension I10 ; Reflux esophagitis K21.0 and Phantom pain R52 [id number] [place] [address] [id number] Apr, BMI 40.0-44.9, adult Z68.41 and Wheelchair bound Z99.3 [id number] [place] [address] [id number] Mar, [id number] [place] [address] [id number] Mar, BMI 40.0-44.9, adult Z68.41 ; Diabetes type 2, uncontrolled E11.65 ; Mild intermittent asthma without complication J45.20 ; Phantom pain R52 ; Reflux esophagitis K21.0 and Essential hypertension I10 [address] [id number] Feb, Phantom pain R52 [id number] [place] [address] [id number] Feb, Phantom pain R52 and Acute pain of left shoulder M25.512 [id number] [place] [address] [id number] Jan, Phantom pain R52 [id number] [place] [address] [id number] Jan, DM neuro manif type II E11.49 ; Cellulitis of left lower extremity L03.116 ; Obstructive sleep apnea syndrome G47.33 ; Thyroid disorder screen Z13.29 and Lipid screening Z13.[address] [place] [address] [id number] Jan, [id number] [place] [address] [id number] Dec, DM neuro manif type II E11.49 ; Phantom pain R52 and Mild intermittent asthma without complication J45.20 [address] [place] [address] [id number] Dec, Wound of left lower extremity, subsequent encounter S81.802D [id number] [place] [address] [id number] Nov, [facility] [place] [id number] [place] [address] Nov, [id number] [id number] Nov, DM neuro manif type II E11.49 ; Mild intermittent asthma without complication J45.20 ; Essential hypertension I10 and Phantom pain R52 [facility] [id number] [place] [address] [id number] Oct, Phantom pain R52 [facility] [id number] [place] [address] [id number] Sep, Phantom pain R52 ; DM neuro manif type II E11.49 and Essential hypertension I10 [facility] [id number] [place] [address] [id number] August, DM neuro manif type II E11.49 ; Phantom pain R52 and Essential hypertension I10 [facility] [id number] [place] [address] [id number] Jul, DM neuro manif type II E11.49 and Phantom pain R52 [facility] [place] [id number] [place] [address] Jun, Onychomycosis B35.1 and DM neuro manif type II E11.49 [facility] [id number] [place] [address] [id number] Jun, DM neuro manif type II E11.49 ; Phantom pain R52 ; Essential hypertension I10 and Diabetes with neurological manifestations, type II or unspecified type, not stated as uncontrolled 250.60 [facility] [id number] [place] [address] [id number] Apr, DM neuro manif type II E11.49 ; Phantom pain R52 ; Essential hypertension I10 and Mild intermittent asthma without complication J45.20 [facility] [id number] [place] [address] [id number] Apr, Need for follow up care after discharge from healthcare facility Z92.89 and Wound of right lower extremity, subsequent encounter S81.801D [facility] [id number] [place] [address] [id number] Mar, Phantom pain R52 ; DM neuro manif type II E11.49 and Essential hypertension I10 [facility] [id number] [place] [address] [id number] Feb, DM neuro manif type II E11.49 ; Phantom pain R52 and Essential hypertension I10 [facility] [id number], [place] [id number] Jan, Phantom pain R52 and DM neuro manif type II E11.49 [facility] [id number], [place] [id number] Dec, [facility] [id number] [place] [address] [id number] Dec, DM neuro manif type II E11.49 ; Phantom pain R52 ; Mild intermittent asthma without complication J45.20 and Essential hypertension I10 [facility] [place] [id number], [place] [address] Dec, Onychomycosis B35.1 ; Xerosis of skin L85.3 and DM neuro manif type II E11.49 [facility] [id number] [place] [address] [id number] Nov, Acquired absence of right leg below knee Z89.511 [facility] [id number] [place] [address] [id number] Nov, [facility] [id number] [place] [address] [id number] Nov, [facility] [id number] [place] [address] [id number] Sep, [facility] [id number] [place] [address] [id number] Sep, Diabetes type 2, uncontrolled E11.65 ; Leg wound, left, initial encounter S81.802A and Erectile disorder due to medical condition in male N52.1 [facility] [address] [id number] [id number] Sep, [facility] [id number] [place] [address] [id number] Jul, [facility] [id number] [place] [address] [id number] Jul, [facility] [id number] [place] [address] [id number] Jul, [facility] [id number] [place] [address] [id number] Jul, 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 ; Varicose vein of leg I83.93 ; Diabetes type 2, uncontrolled E11.65 and Chronic pain G89.29 [id number] [place] [address] [id number] Jul, [address] [place] [address] [id number] Jul, Diabetes with neurological manifestations, type II or unspecified type, not stated as uncontrolled 250.60 [id number] [place] [address] [id number] Jul, [address] [place] [address] [id number] Jul, [address] [place] [address] [id number] Jun, Diabetes type 2, uncontrolled E11.65 [address] [place] [address] [id number] Jun, Pain in right knee M25.561 ; Pain in left knee M25.562 ; Other chronic pain G89.29 and Primary osteoarthritis of both knees M17.0 [address] [place] [address] [id number] Apr, Diabetes type 2, uncontrolled E11.65 ; Puncture wound of foot, left, initial encounter S91.332A and Encounter for immunization Z23 [id number] [place] [address] [id number] Apr, [address] [place] [address] [id number] Apr, [address] [place] [address] [id number] Feb, Acquired absence of right leg below knee Z89.511 [address] [place] [address] [id number] Feb, Acquired absence of right leg below knee Z89.[address] [place] [address] [id number] Feb, Diabetes type 2, uncontrolled E11.65 and Acquired absence of right leg below knee Z89.511 [facility] [id number] [place] [address] [id number] Jan, [facility] [id number] [place] [address] [id number] Jan, [facility] [place] [address], [place] [address] Jan, [facility] [id number] [place] [address] [id number] Jan, [facility] [id number] [place] [address] [id number] Dec, [facility] [id number] [place] [address] [id number] Dec, Diabetes with neurological manifestations, type II or unspecified type, not stated as uncontrolled 250.60 and Open wound of foot except toe(s) alone, without mention of complication 892.0 [facility] [id number] [place] [address] [id number] Dec, [facility] [id number] [place] [address] [id number] Nov, [facility] [id number] [place] [address] [id number] Nov, Cellulitis of foot 682.7 [id number] [place] [address] [id number] Oct, [id number] [place] [address] [id number] Oct, Corneal abrasion 918.1 [facility] [id number] [place] [address] [id number] Oct, [facility] [id number] [place] [address] [id number] Oct, [facility] [id number] [place] [address] [id number] August, [facility] [id number] [place] [address] [id number] August, [facility] [id number] [place] [address] [place] [id number] August, [facility] [address] [id number] [id number] August, [facility] [address] [id number] [id number] August, Diabetes mellitus without mention of complication, type II or unspecified type, not stated as uncontrolled 250.00 [facility] [address], [place] [address] Jul, [facility] [place] [id number] [address] Jul, [facility] [place] [address], [place] [address] Apr, [facility] [place] [address], [place] [address] Apr, [facility] [place] [address], [place] [address] Mar, [facility] [place] [address], [place] [address] Mar, [facility] [place] [address], [place] [address] Mar, [facility] [place] [address], [place] [address] Mar, [facility] [place] [address], [place] [address] Mar, [facility] [place] [id number], [place] [address] Mar, [facility] [address] [id number] [id number] Mar, [facility] [id number], [place] [address] Mar, [facility] [place] [id number], [place] [address] Mar, [facility] [place] [facility] [address] [id number] [place] [address] Mar, [facility] [place] [facility] [address] [id number] [place] [address] Mar, [facility] [place] [facility] [address] [id number] [place] [address] Mar, [facility] [place] [facility] [address] [facility] [id number] [place] [address] Mar, [facility] [address] [id number][place] [id number] Mar, [facility] [place] [facility] [address] [id number] [place] [address] Jan, [facility] [address] [facility] [id number][place] [id number] Jan, [facility] [place] [facility] [address] [facility] [id number] [place] [address] Jan, [facility] [place] [facility] [address] [facility] [id number], [place] [address] Jan, [facility] [place] [facility] [address] [facility] [id number], [place] [address] Jan, [facility] [address] [facility] [id number] [id number] Jan, [facility] [place] [facility] [address] [facility] [id number], [place] [address] Dec, [facility] [address] [id number][place] [id number] Nov, [facility] [place] [facility] [address] [id number], [place] [address] Nov, [facility] [address] [facility] [id number], [place] [id number] Oct, [facility] [place] [facility] [address] [facility] [id number] [place] [address] Oct, [facility] [address] [id number][place] [id number] Oct, [facility] [place] [facility] [address] [id number] [place] [address] Oct, [facility] [place] [facility] [address] [facility] [id number] [place] [address] August, [facility] [place] [facility] [address] [facility] [id number] [place] [address] August, [facility] [place] [facility] [address] [facility] [id number] [place] [address] August, [facility] [place] [facility] [address] [facility] [id number] [place] [address] August, [facility] [address] [facility] [id number], [place] [id number] Jul, [facility] [place] [facility] [address] [facility] [id number][place] [address] Jul, [facility] [address] [facility] [id number], [place] [id number] Jun, [facility] [place] [facility] [address] [facility] [id number], [place] [address] Jun, [facility] [address] [facility] [id number][place] [id number] Jun, [facility] [place] [facility] [address] [facility] [id number], [place] [address] Jun, [facility] [address] [facility] [id number], [place] [id number] Jun, [facility] [place] [facility] [address] [id number], [place] [address] Jun, [facility] [address] [facility] [id number][place] 849361653 Jun, [facility] [place] [facility] [address] [facility] [id number] [place] [address] Jun, [facility] [address] [facility] [id number], [place] [id number] May, [facility] [place] [facility] [address] [facility] [id number], [place] [address] May, [facility] [address] [facility] [id number], [place] [id number] May, [facility] [place] [facility] [address] [facility] [id number] [place] [address] May, [facility] [place] [facility] [address] [facility] [id number] [place] [address] May, [facility] [place] [facility] [address] [facility] [id number] [place] [address] May, [facility] [address] [facility] [id number], [place] [id number] May, [facility] [place] [facility] [address] [facility] [id number][place] [address] May, [facility] [id number], [place] [id number] May, [facility] [place] [facility] [address], [place] [address] May, [facility] [place] [facility] [address], [place] [address] Apr, [facility] [place] [facility] [id number], [place] [address] Apr, [facility] [place] [id number] [id number] Apr, [facility] [place] [facility] [address] [facility] [id number] [address] Apr, [facility] [place] [address] [facility] [id number][place] [id number] Sep, [facility] [place] [facility] [address] [facility] [id number], [place] [address] 16 Sep, 2012 [facility] [place] [address] [id number] [id number] 14 Sep, 2012 [facility] [address] [id number] [place] [id number] Sep, [facility] [address] [facility] [id number] [place] [address] Jun, [facility] [place] [address] [id number] [place] [id number] Nov, [facility] [place] [address] [id number] [place] [id number] Nov, [facility] [place] [address] [id number] [place] [id number] Nov, [facility] [place] [address] [id number] [place] [id number] Nov, [facility] [place] [address] [id number] [place] [id number] Nov, [facility] [place] [address] [id number] [place] [id number] Nov, [facility] [place] [address] [id number] [place] [id number] Nov, [facility] [place] [address] [id number] [place] [id number] Nov, [facility] [place] [address] [id number] [place] [id number] Nov, [facility] [place] [address] [id number] [place] [id number] Sep, [facility] [place] [address] [id number] [place] [id number] Sep, [facility] [place] [address] [id number] [place] [id number] Sep, [facility] [place] [address] [id number] [place] [id number] Sep, [facility] [place] [address] [id number] [place] [id number] August, [facility] [address] [id number] [place] [id number] August, [facility] [address] [id number] [place] [id number] August, [facility] [address] [id number] [place] [id number] August, [facility] [place] [address] [facility] [id number] [place] [address] Sep, IMMUNIZATIONS No Known Immunizations SOCIAL HISTORY Never Assessed REASON FOR VISIT f/u. Consult Dr. Escudero;Daniel RT(R) PLAN OF CARE Activity Details Follow Up prn Reason: VITAL SIGNS Height 72 in 2017-07-02 Blood pressure systolic 132 mmHg 2017-07-02 Blood pressure diastolic 94 mmHg 2017-07-02 MEDICATIONS Unknown Medications RESULTS No Results PROCEDURES Procedure Date Ordered Result Body Site DEBRIDE NAIL, -July 02, 2017 INSTRUCTIONS MEDICATIONS ADMINISTERED No Known Medications [...] discharges with home health -02/2015 Hospitalization [facility] visit for sore on right stump 04/2016 Hospitalization [facility] wound on left lower leg, culture +for Strep G 12/2016
--- OUTSIDE RECORDS SUMMARY | 2018-10-31 17:39 | XMS REPORT ---
Author Author JERRICA MENDEZ 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 Active 285734165 Problem Other chronic pain G89.29 Active 05108658 Problem Diabetes type 2, uncontrolled E11.65 Active 901934435 Problem Anaphylactic reaction to bee sting, accidental or unintentional, initial encounter T63.441A Active 692350021 Problem Skin ulcer of left lower leg, limited to breakdown of skin L97.921 Active 11249108 Problem Erectile dysfunction, unspecified erectile dysfunction type N52.9 Active 591326521 Problem Varicose veins of left lower extremity with ulcer other part of lower leg I83.028 Active 00575593 Problem 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 Active 016910230 Problem Phantom pain R52 Active 504505976 Problem Essential hypertension I10 Active 58295722 Problem DM neuro manif type II E11.49 Active 93581020 Problem Acquired absence of right leg below knee Z89.511 Active 585739521 Problem Cellulitis of left lower extremity L03.116 Active 708408409 Problem Acute pain of left shoulder M25.512 Active 32096294 Problem Mild intermittent asthma without complication J45.20 Active 548525178 Problem Reflux esophagitis K21.0 Active 224279311 Problem Obstructive sleep apnea syndrome G47.33 Active 85083808 Problem Hammertoe of left foot M20.42 Active 926997935 ALLERGIES No Information ENCOUNTERS Encounter Location Date Diagnosis [facility] [address] [facility] [id number], [place] [address] Dec, [facility] [id number] [id number] Dec, [facility] [id number] [place] [address] [phone] Nov, Phantom pain R52 [facility] [id number] [place] [address] [id number] Nov, Diabetes type 2, uncontrolled E11.65 and BMI 40.0-44.9, adult Z68.41 [facility] [id number] [place] [address] [id number] Oct, Anaphylactic reaction to bee sting, accidental or unintentional, initial encounter T63.441A ; Pain in right shoulder M25.511 and Other chronic pain G89.29 [address] [place] [address] [id number] Oct, Diabetes type 2, uncontrolled E11.65 [place] [id number] [place] [address] [id number] Oct, Diabetes type 2, uncontrolled E11.65 and Cellulitis of left lower extremity L03.116 [place] [id number] [place] [address] [id number] Oct, Phantom pain R52 [facility] [address]00565[place], [place] [address] Sep, Onychomycosis B35.1 ; Impaired circulation of left leg I99.9 and DM neuro manif type II E11.[address] [place] [address] [id number] Sep, BMI 40.0-44.9, adult Z68.41 ; Skin ulcer of left lower leg, limited to breakdown of skin L97.921 ; Acute pain of left shoulder M25.512 ; DM neuro manif type II E11.49 ; Mild intermittent asthma without complication J45.20 and Phantom pain R52 [address] [place] [address] [id number] Sep, Phantom pain R52 [place] [id number] [place] [address] [id number] August, Phantom pain R52 [facility] [id number][place] [id number] August, Acquired absence of right leg below knee Z89.511 [place] [id number][place] [id number] August, Acquired absence of right leg below knee Z89.511 [place] [address] [address] August, Diabetes type 2, uncontrolled E11.65 [place] [address] [address] [id number] [place] [address] August, [place] [address] [address] August, [address] [place] [address] [phone] August, BMI 40.0-44.9, adult Z68.41 ; 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 and Acquired absence of right leg below knee Z89.511 [facility] [address] [id number] [place] [address] August, [place] [id number] [place] [address] [id number] Jul, Skin ulcer of left lower leg, limited to breakdown of skin L97.921 [place] [id number] [place] [address] [id number] Jul, [address] [place] [address] [id number] Jul, BMI 40.0-44.9, adult Z68.41 ; Skin ulcer of left lower leg, limited to breakdown of skin L97.921 and DM neuro manif type II E11.49 [place] [address]00565100[place], [place] [address] Jul, [place] [id number] [place] [address] [id number] Jul, [address]005[address] [id number] Jul, [address] [place] [address] [id number] Jun, Erectile dysfunction, unspecified erectile dysfunction type N52.9 [place] [address]00565100[place], [place] [address] Jun, [address] [place] [address] [id number] Jun, BMI 40.0-44.9, adult Z68.41 ; Diabetes type 2, uncontrolled E11.65 ; Phantom pain R52 ; Subluxation of right shoulder joint, sequela S43.001S and Erectile dysfunction, unspecified erectile dysfunction type N52.9 [place] [address] [place] [address] Jun, DM neuro manif type II E11.49 ; Onychomycosis B35.1 and Hammertoe of left foot M20.42 [place] [address]00565100[place], [place] [address] Jun, [id number] [place] [address] [id number] Jun, DM neuro manif type II E11.[address] [id number][place] [phone] Jun, DM neuro manif type II E11.49 [address] [place] [address] [id number] May, DM neuro manif type II E11.49 ; Venous insufficiency (chronic) (peripheral) I87.2 ; 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 ; Essential hypertension I10 and Phantom pain R52 [address] [place] [address] [id number] Apr, Diabetes type 2, uncontrolled E11.65 ; Acquired absence of right leg below knee Z89.511 ; Essential hypertension I10 ; Reflux esophagitis K21.0 and Phantom pain R52 [place] [id number] [place] [address] [id number] Apr, BMI 40.0-44.9, adult Z68.41 and Wheelchair bound Z99.3 [facility] [id number] [place] [address] [id number] Mar, [facility] [id number] [place] [address] [id number] Mar, BMI 40.0-44.9, adult Z68.41 ; Diabetes type 2, uncontrolled E11.65 ; Mild intermittent asthma without complication J45.20 ; Phantom pain R52 ; Reflux esophagitis K21.0 and Essential hypertension I10 [place] [id number] [place] [address] [id number] Feb, Phantom pain R52 [place] [id number] [place] [address] [id number] Feb, Phantom pain R52 and Acute pain of left shoulder M25.512 [place] [id number] [place] [address] [id number] Jan, Phantom pain R52 [facility] [id number] [place] [address] [id number] Jan, DM neuro manif type II E11.49 ; Cellulitis of left lower extremity L03.116 ; Obstructive sleep apnea syndrome G47.33 ; Thyroid disorder screen Z13.29 and Lipid screening Z13.220 [facility] [address] [place] [address] [id number] Jan, [place] [id number] [place] [address] [id number] Dec, DM neuro manif type II E11.49 ; Phantom pain R52 and Mild intermittent asthma without complication J45.20 [facility] [address] [place] [address] [id number] Dec, Wound of left lower extremity, subsequent encounter S81.802D [facility] [address] [place] [address] [id number] Nov, [facility] [id number] [place] [address] Nov, [place] [phone] Nov, DM neuro manif type II E11.49 ; Mild intermittent asthma without complication J45.20 ; Essential hypertension I10 and Phantom pain R52 [facility] [id number] [place] [address] [id number] Oct, Phantom pain R52 [facility] [id number] [place] [address] [id number] Sep, Phantom pain R52 ; DM neuro manif type II E11.49 and Essential hypertension I10 [facility] [id number] [place] [address] [id number] August, DM neuro manif type II E11.49 ; Phantom pain R52 and Essential hypertension I10 [facility] [id number] [place] [address] [id number] Jul, DM neuro manif type II E11.49 and Phantom pain R52 [facility] [id number] [place] [address] Jun, Onychomycosis B35.1 and DM neuro manif type II E11.49 [facility] [address] [place] [address] [phone] Jun, DM neuro manif type II E11.49 ; Phantom pain R52 ; Essential hypertension I10 and Diabetes with neurological manifestations, type II or unspecified type, not stated as uncontrolled 250.60 [facility] [id number] [place] [address] [id number] Apr, DM neuro manif type II E11.49 ; Phantom pain R52 ; Essential hypertension I10 and Mild intermittent asthma without complication J45.20 [facility] [id number], [place] [id number] Apr, Need for follow up care after discharge from healthcare facility Z92.89 and Wound of right lower extremity, subsequent encounter S81.801D [facility] [id number] [place] [address] [id number] Mar, Phantom pain R52 ; DM neuro manif type II E11.49 and Essential hypertension I10 [facility] [id number] [place] [address] [id number] Feb, DM neuro manif type II E11.49 ; Phantom pain R52 and Essential hypertension I10 [facility] [id number], [place] [phone] Jan, Phantom pain R52 and DM neuro manif type II E11.49 [facility] [address] [facility] [id number][place] [phone] Dec, [facility] [id number] [place] [address] [id number] Dec, DM neuro manif type II E11.49 ; Phantom pain R52 ; Mild intermittent asthma without complication J45.20 and Essential hypertension I10 [facility] [address] [id number], [place] [address] Dec, Onychomycosis B35.1 ; Xerosis of skin L85.3 and DM neuro manif type II E11.49 [facility] [id number] [place] [address] [id number] Nov, Acquired absence of right leg below knee Z89.511 [facility] [id number] [place] [address] [id number] Nov, [facility] [id number] [place] [address] [id number] Nov, [facility] [id number] [place] [address] [id number] Sep, [facility] [id number] [place] [address] [id number] Sep, Diabetes type 2, uncontrolled E11.65 ; Leg wound, left, initial encounter S81.802A and Erectile disorder due to medical condition in male N52.1 [facility] [id number], [place] [phone] Sep, [facility] [id number] [place] [address] [id number] Jul, [facility] [id number] [place] [address] [id number] Jul, [facility] [id number] [place] [address] [id number] Jul, [facility] [address] [id number] [place] [address] [id number] Jul, 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 ; Varicose vein of leg I83.93 ; Diabetes type 2, uncontrolled E11.65 and Chronic pain G89.29 [facility] [id number] [place] [address] [id number] Jul, [facility] [address] [id number] [place] [address] [id number] Jul, Diabetes with neurological manifestations, type II or unspecified type, not stated as uncontrolled 250.60 [facility] [id number] [place] [address] [id number] Jul, [place] [address] [place] [address] [id number] [place] [address] [id number] Jul, [facility] [id number] [place] [address] [id number] Jun, Diabetes type 2, uncontrolled E11.65 [place] [id number] [place] [address] [id number] Jun, Pain in right knee M25.561 ; Pain in left knee M25.562 ; Other chronic pain G89.29 and Primary osteoarthritis of both knees M17.0 [place] [id number] [place] [address] [id number] Apr, Diabetes type 2, uncontrolled E11.65 ; Puncture wound of foot, left, initial encounter S91.332A and Encounter for immunization Z23 [place] [id number] [place] [address] [id number] Apr, [facility] [id number] [place] [address] [id number] Apr, [facility] [id number] [place] [address] [id number] Feb, Acquired absence of right leg below knee Z89.511 [place] [address] [place] [id number] [place] [address] [id number] Feb, Acquired absence of right leg below knee Z89.511 [place] [id number] [place] [address] [id number] Feb, Diabetes type 2, uncontrolled E11.65 and Acquired absence of right leg below knee Z89.511 [facility] [id number] [place] [address] [id number] Jan, [facility] [address] [id number] [place] [address] [id number] Jan, [facility] [address]005[address], [place] [address] Jan, [facility] [address] [place] [address] [id number] [place] [address] [id number] Jan, [facility] [id number] [place] [address] [phone] Dec, [place] [address] [place] [id number] [place] [address] [id number] Dec, Diabetes with neurological manifestations, type II or unspecified type, not stated as uncontrolled 250.60 and Open wound of foot except toe(s) alone, without mention of complication 892.0 [facility] [address] [id number] [place] [address] [id number] Dec, [facility] [id number] [place] [address] [id number] Nov, [facility] [address] [place] [address] [id number] [place] [address] [id number] Nov, Cellulitis of foot 682.7 [place] [address] [place] [id number] [place] [address] [id number] Oct, [place] [address] [place] [id number] [place] [address] [id number] Oct, Corneal abrasion 918.1 [facility] [id number] [place] [address] [id number] Oct, [place] [id number] [place] [address] [id number] Oct, [facility] [id number] [place] [address] [id number] August, [facility] [id number] [place] [address] [id number] August, [facility] [address] [place] [address] [id number] [place] [address] [id number] August, [facility] [address] [facility] [id number] [phone] August, [facility] [address] [place] [id number], [place] [phone] August, Diabetes mellitus without mention of complication, type II or unspecified type, not stated as uncontrolled 250.00 [facility] [address]005[address], [place] [address] Jul, [facility] [address] [place] [address] [id number], [place] [address] Jul, [facility] [id number] [place] [address] Apr, [facility] [address]005[address]100[place], [place] [address] Apr, [facility] [address]100[place], [place] [address] Mar, [facility] [address]00565100[place], [place] [address] Mar, [facility] [address]100[place], [place] [address] Mar, [facility] [address]00565100[place], [place] [address] Mar, [facility] [address]005[address]100[place], [place] [address] Mar, [facility] [address] [facility] [id number], [place] [address] Mar, [facility] [address] [facility] [id number][place] [phone] Mar, [facility] [address] [id number], [place] [address] Mar, [facility] [address] [id number], [place] [address] Mar, [facility] [place] [facility] [address] [id number] [place] [address] Mar, [facility] [place] [facility] [address] [id number] [place] [address] Mar, [facility] [place] [facility] [address] [facility] [id number] [place] [address] Mar, [facility] [place] [facility] [address] [facility] [id number] [place] [address] Mar, [facility] [address] [facility] [id number] [place] [id number] Mar, [facility] [place] [facility] [address] [facility] [id number] [place] [address] Jan, [facility] [address] [facility] [id number][place] [id number] Jan, [facility] [place] [facility] [address] [facility] [id number] [place] [address] Jan, [facility] [place] [facility] [address] [facility] [id number], [place] [address] Jan, [facility] [place] [facility] [address] [facility] [id number], [place] [address] Jan, [facility] [address] [facility] [id number][place] [id number] Jan, [facility] [place] [facility] [address] [facility] [id number], [place] [address] Dec, [facility] [address] [facility] [id number][place] [id number] Nov, [facility] [place] [facility] [address] [id number], [place] [address] Nov, [facility] [address] [facility] [id number], [place] [id number] Oct, [facility] [place] [facility] [address] [facility] [id number], [place] [address] Oct, [facility] [address] [facility] [id number], [place] [id number] Oct, [facility] [place] [facility] [address] [id number] [place] [address] Oct, [facility] [place] [facility] [address] [facility] [id number] [place] [address] August, [facility] [place] [facility] [address] [facility] [id number] [place] [address] August, [facility] [place] [facility] [address] [facility] [id number] [place] [address] August, [facility] [place] [facility] [address] [facility] [id number] [place] [address] August, [facility] [address] [facility] [id number], [place] [id number] Jul, [facility] [place] [facility] [address] [facility] [id number] [place] [address] Jul, [facility] [address] [facility] [id number], [place] [id number] Jun, [facility] [place] [facility] [address] [facility] [id number] [place] [address] Jun, [facility] [address] [facility] [id number], [place] [id number] Jun, [facility] [place] [facility] [address] [facility] [id number], [place] [address] Jun, [facility] [address] [facility] [id number][place] [id number] Jun, [facility] [place] [facility] [address] [id number] [place] [address] Jun, [facility] [address] [facility] [id number] [place] [id number] Jun, [facility] [place] [facility] [address] [facility] [id number] [place] [address] Jun, [facility] [address] [id number], [place] [id number] May, [facility] [place] [facility] [address] [facility] [id number], [place] [address] May, [facility] [address] [facility] [id number], [place] [id number] May, [facility] [place] [facility] [address] [facility] [id number], [place] [address] May, [facility] [place] [facility] [id number] [place] [address] May, [facility] [place] [facility] [address] [facility] [id number] [place] [address] May, [facility] [place] [address] [facility] [id number][place] [id number] May, [facility] [place] [facility] [id number], [place] [address] May, [facility] [place] [id number][place] [id number] May, [facility] [place] [facility] [id number], [place] [address] May, [facility] [place] [facility] [id number], [place] [address] Apr, [facility] [place] [facility] [id number], [place] [address] Apr, [facility] [place] [id number][place] [id number] Apr, [facility] [place] [facility] [address] [facility] [id number], [place] [address] Apr, [facility] [place] [address] [facility] [id number][place] [id number] Sep, [facility] [place] [facility] [address] [facility] [id number], [place] [address] 16 Sep, 2012 [facility] [place] [address] [facility] [id number][place] [id number] 14 Sep, 2012 [facility] [place] [address] [facility] [id number][place] [id number] Sep, [facility] [address] [facility] [id number] [place] [address] Jun, [facility] [place] [address] [id number] [place] [id number] Nov, [facility] [place] [address] [id number] [place] [id number] Nov, [facility] [place] [address] [id number] [place] [id number] Nov, [facility] [place] [address] [id number] [place] [id number] Nov, [facility] [place] [address] [id number] [place] [id number] Nov, [facility] [place] [address] [id number] [place] [id number] Nov, [facility] [place] [address] [id number] [place] [id number] Nov, [facility] [place] [address] [id number] [place] [id number] Nov, [facility] [address] [id number] [place] [id number] Nov, [facility] [address] [id number] [place] [id number] Sep, [facility] [address] [id number] [place] [id number] Sep, [facility] [address] [id number] [place] [id number] Sep, [facility] [address] [id number] [place] [id number] Sep, [facility] [address] [id number] [place] [id number] August, [facility] [address] [id number] [place] [id number] August, [facility] [address] [id number] [place] [id number] August, [facility] [address] [id number] [place] [id number] August, [facility] [address] [facility] [id number] [place] [address] Sep, IMMUNIZATIONS No Known Immunizations SOCIAL HISTORY Never Assessed REASON FOR VISIT Requests return call PLAN OF CARE VITAL SIGNS MEDICATIONS Unknown [...] History amputation right mid-calf/foot at [facility] 01/2015 Hospitalization History [facility] post op infection to right foot, amputations to mid-calf 01/2015 Hospitalization History [facility] In post-op 7 days, discharges with home health -02/2015 Hospitalization History [facility] ER visit for sore on right stump 04/2016 Hospitalization History [facility] wound on left lower leg, culture +for Strep G 12/2016
--- OUTSIDE RECORDS SUMMARY | 2018-10-31 17:39 | XMS REPORT ---
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 Active 606236937 Problem Other chronic pain G89.29 Active 13205310 Problem Diabetes type 2, uncontrolled E11.65 Active 290506436 Problem Anaphylactic reaction to bee sting, accidental or unintentional, initial encounter T63.441A Active 162900923 Problem Skin ulcer of left lower leg, limited to breakdown of skin L97.921 Active 89170881 Problem Erectile dysfunction, unspecified erectile dysfunction type N52.9 Active 224740338 Problem Varicose veins of left lower extremity with ulcer other part of lower leg I83.028 Active 10613575 Problem 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 Active 204104240 Problem Phantom pain R52 Active 281642121 Problem Essential hypertension I10 Active 92307412 Problem DM neuro manif type II E11.49 Active 96346368 Problem Acquired absence of right leg below knee Z89.511 Active 620639177 Problem Cellulitis of left lower extremity L03.116 Active 943806989 Problem Acute pain of left shoulder M25.512 Active 63044654 Problem Mild intermittent asthma without complication J45.20 Active 097241168 Problem Reflux esophagitis K21.0 Active 737685660 Problem Obstructive sleep apnea syndrome G47.33 Active 69774564 Problem Hammertoe of left foot M20.42 Active 651699167 ALLERGIES No Information ENCOUNTERS Encounter Location Date Diagnosis [facility] [address] [facility] [id number] [address] Dec, [facility] [id number], [place] [id number] Dec, [facility] [id number] [place] [address] [id number] Nov, Phantom pain R52 [facility] [id number] [place] [address] [id number] Nov, Diabetes type 2, uncontrolled E11.65 and BMI 40.0-44.9, adult Z68.41 [facility] [id number] [place] [address] [id number] Oct, Anaphylactic reaction to bee sting, accidental or unintentional, initial encounter T63.441A ; Pain in right shoulder M25.511 and Other chronic pain G89.29 [address] [place] [address] [id number] Oct, Diabetes type 2, uncontrolled E11.65 [place] [id number] [place] [address] [id number] Oct, Diabetes type 2, uncontrolled E11.65 and Cellulitis of left lower extremity L03.116 [place] [id number] [place] [address] [id number] Oct, Phantom pain R52 [facility] [address]00565100[place], [place] [address] Sep, Onychomycosis B35.1 ; Impaired circulation of left leg I99.9 and DM neuro manif type II E11.49 [address] [place] [address] [id number] Sep, BMI 40.0-44.9, adult Z68.41 ; Skin ulcer of left lower leg, limited to breakdown of skin L97.921 ; Acute pain of left shoulder M25.512 ; DM neuro manif type II E11.49 ; Mild intermittent asthma without complication J45.20 and Phantom pain R52 [address] [place] [address] [id number] Sep, Phantom pain R52 [place] [id number] [place] [address] [id number] August, Phantom pain R52 [facility] [id number], [place] [id number] August, Acquired absence of right leg below knee Z89.511 [place] [id number][place] [id number] August, Acquired absence of right leg below knee Z89.511 [place] [address] [address] August, Diabetes type 2, uncontrolled E11.65 [place] [address] [id number] [place] [address] August, [place] [address] [address] August, [address] [place] [address] [id number] August, BMI 40.0-44.9, adult Z68.41 ; 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 and Acquired absence of right leg below knee Z89.511 [facility] [address] [id number] [place] [address] August, [place] [id number] [place] [address] [id number] Jul, Skin ulcer of left lower leg, limited to breakdown of skin L97.921 [place] [id number] [place] [address] [id number] Jul, [address] [place] [address] [id number] Jul, BMI 40.0-44.9, adult Z68.41 ; Skin ulcer of left lower leg, limited to breakdown of skin L97.921 and DM neuro manif type II E11.49 [place] [address]00565100[place], [place] [address] Jul, [place] [id number] [place] [address] [id number] Jul, [address]00565[address] [id number] Jul, [address] [place] [address] [id number] Jun, Erectile dysfunction, unspecified erectile dysfunction type N52.9 [place] [address]00565100[place], [place] [address] Jun, [address] [place] [address] [id number] Jun, BMI 40.0-44.9, adult Z68.41 ; Diabetes type 2, uncontrolled E11.65 ; Phantom pain R52 ; Subluxation of right shoulder joint, sequela S43.001S and Erectile dysfunction, unspecified erectile dysfunction type N52.9 [place] [address] [place] [address] Jun, DM neuro manif type II E11.49 ; Onychomycosis B35.1 and Hammertoe of left foot M20.42 [place] [address]00565[address], [place] [address] Jun, [id number] [place] [address] [id number] Jun, DM neuro manif type II E11.[address] [id number] [id number] Jun, DM neuro manif type II E11.49 [address] [place] [address] [id number] May, DM neuro manif type II E11.49 ; Venous insufficiency (chronic) (peripheral) I87.2 ; 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 [id number] [place] [address] [id number] Mar, [facility] [id number] [place] [address] [id number] Mar, BMI 40.0-44.9, adult Z68.41 ; Diabetes type 2, uncontrolled E11.65 ; Mild intermittent asthma without complication J45.20 ; Phantom pain R52 ; Reflux esophagitis K21.0 and Essential hypertension I10 [place] [id number] [place] [address] [id number] Feb, Phantom pain R52 [place] [id number] [place] [address] [id number] Feb, Phantom pain R52 and Acute pain of left shoulder M25.512 [place] [id number] [place] [address] [id number] Jan, Phantom pain R52 [facility] [id number] [place] [address] [id number] Jan, DM neuro manif type II E11.49 ; Cellulitis of left lower extremity L03.116 ; Obstructive sleep apnea syndrome G47.33 ; Thyroid disorder screen Z13.29 and Lipid screening Z13.220 [facility] [address] [place] [address] [id number] Jan, [place] [id number] [place] [address] [id number] Dec, DM neuro manif type II E11.49 ; Phantom pain R52 and Mild intermittent asthma without complication J45.20 [facility] [address] [place] [address] [id number] Dec, Wound of left lower extremity, subsequent encounter S81.802D [facility] [address] [place] [address] [id number] Nov, [facility] [id number] [place] [address] Nov, [id number] [id number] Nov, DM neuro manif type II E11.49 ; Mild intermittent asthma without complication J45.20 ; Essential hypertension I10 and Phantom pain R52 [facility] [id number] [place] [address] [id number] Oct, Phantom pain R52 [facility] [id number] [place] [address] [id number] Sep, Phantom pain R52 ; DM neuro manif type II E11.49 and Essential hypertension I10 [facility] [id number] [place] [address] [id number] August, DM neuro manif type II E11.49 ; Phantom pain R52 and Essential hypertension I10 [facility] [id number] [place] [address] [id number] Jul, DM neuro manif type II E11.49 and Phantom pain R52 [facility] [id number] [place] [address] Jun, Onychomycosis B35.1 and DM neuro manif type II E11.49 [facility] [address] [place] [address] [id number] Jun, DM neuro manif type II E11.49 ; Phantom pain R52 ; Essential hypertension I10 and Diabetes with neurological manifestations, type II or unspecified type, not stated as uncontrolled 250.60 [facility] [id number] [place] [address] [id number] Apr, DM neuro manif type II E11.49 ; Phantom pain R52 ; Essential hypertension I10 and Mild intermittent asthma without complication J45.20 [facility] [id number], [place] [id number] Apr, Need for follow up care after discharge from healthcare facility Z92.89 and Wound of right lower extremity, subsequent encounter S81.801D [facility] [id number] [place] [address] [id number] Mar, Phantom pain R52 ; DM neuro manif type II E11.49 and Essential hypertension I10 [facility] [id number] [place] [address] [id number] Feb, DM neuro manif type II E11.49 ; Phantom pain R52 and Essential hypertension I10 [facility] [id number], [place] [id number] Jan, Phantom pain R52 and DM neuro manif type II E11.49 [facility] [address] [facility] [id number][place] [id number] Dec, [facility] [id number] [place] [address] [id number] Dec, DM neuro manif type II E11.49 ; Phantom pain R52 ; Mild intermittent asthma without complication J45.20 and Essential hypertension I10 [facility] [address] [id number], [place] [address] Dec, Onychomycosis B35.1 ; Xerosis of skin L85.3 and DM neuro manif type II E11.49 [facility] [id number] [place] [address] [id number] Nov, Acquired absence of right leg below knee Z89.511 [facility] [id number] [place] [address] [id number] Nov, [facility] [id number] [place] [address] [id number] Nov, [facility] [id number] [place] [address] [id number] Sep, [facility] [id number] [place] [address] [id number] Sep, Diabetes type 2, uncontrolled E11.65 ; Leg wound, left, initial encounter S81.802A and Erectile disorder due to medical condition in male N52.1 [facility] [id number], [place] [id number] Sep, [facility] [id number] [place] [address] [id number] Jul, [facility] [id number] [place] [address] [id number] Jul, [facility] [id number] [place] [address] [id number] Jul, [facility] [id number] [place] [address] [id number] Jul, 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 ; Varicose vein of leg I83.93 ; Diabetes type 2, uncontrolled E11.65 and Chronic pain G89.29 [facility] [id number] [place] [address] [id number] Jul, [facility] [id number] [place] [address] [id number] Jul, Diabetes with neurological manifestations, type II or unspecified type, not stated as uncontrolled 250.60 [facility] [id number] [place] [address] [id number] Jul, [place] [id number] [place] [address] [id number] Jul, [facility] [id number] [place] [address] [id number] Jun, Diabetes type 2, uncontrolled E11.65 [place] [id number] [place] [address] [id number] Jun, Pain in right knee M25.561 ; Pain in left knee M25.562 ; Other chronic pain G89.29 and Primary osteoarthritis of both knees M17.0 [place] [id number] [place] [address] [id number] Apr, Diabetes type 2, uncontrolled E11.65 ; Puncture wound of foot, left, initial encounter S91.332A and Encounter for immunization Z23 [place] [id number] [place] [address] [id number] Apr, [facility] [id number] [place] [address] [id number] Apr, [facility] [id number] [place] [address] [id number] Feb, Acquired absence of right leg below knee Z89.511 [place] [address] [id number] [place] [address] [id number] Feb, Acquired absence of right leg below knee Z89.511 [place] [id number] [place] [address] [id number] Feb, Diabetes type 2, uncontrolled E11.65 and Acquired absence of right leg below knee Z89.511 [facility] [id number] [place] [address] [id number] Jan, [facility] [id number] [place] [address] [id number] Jan, [facility] [address]005[address], [place] [address] Jan, [facility] [id number] [place] [address] [id number] Jan, [facility] [id number] [place] [address] [id number] Dec, [place] [address] [place] [id number] [place] [address] [id number] Dec, Diabetes with neurological manifestations, type II or unspecified type, not stated as uncontrolled 250.60 and Open wound of foot except toe(s) alone, without mention of complication 892.0 [facility] [id number] [place] [address] [id number] Dec, [facility] [id number] [place] [address] [id number] Nov, [facility] [id number] [place] [address] [id number] Nov, Cellulitis of foot 682.7 [place] [address] [place] [address] [id number] [place] [address] [id number] Oct, [place] [address] [place] [address] [id number] [place] [address] [id number] Oct, Corneal abrasion 918.1 [facility] [id number] [place] [address] [id number] Oct, [place] [id number] [place] [address] [id number] Oct, [facility] [id number] [place] [address] [id number] August, [facility] [id number] [place] [address] [id number] August, [facility] [id number] [place] [address] [id number] August, [facility] [address] [facility] [id number] [id number] August, [facility] [address] [place] [id number] [id number] August, Diabetes mellitus without mention of complication, type II or unspecified type, not stated as uncontrolled 250.00 [facility] [address]005[address], [place] [address] Jul, [facility] [address] [id number], [place] [address] Jul, [facility] [address] [place] [address] Apr, [facility] [address]00565[address], [place] [address] Apr, [facility] [address]00565[address], [place] [address] Mar, [facility] [address]00565100[place], [place] [address] Mar, [facility] [address]100[place], [place] [address] Mar, [facility] [address]00565100[place], [place] [address] Mar, [facility] [address]00565100[place], [place] [address] Mar, [facility] [address] [facility] [id number], [place] [address] Mar, [facility] [address] [facility] [id number][place] [id number] Mar, [facility] [address] [id number], [place] [address] Mar, [facility] [address] [id number], [place] [address] Mar, [facility] [place] [facility] [address] [id number] [place] [address] Mar, [facility] [place] [facility] [address] [id number] [place] [address] Mar, [facility] [place] [facility] [address] [facility] [id number] [place] [address] Mar, [facility] [place] [facility] [address] [facility] [id number] [place] [address] Mar, [facility] [address] [facility] [id number] [place] [id number] Mar, [facility] [place] [facility] [address] [facility] [id number] [place] [address] Jan, [facility] [address] [facility] [id number], [place] [id number] Jan, [facility] [place] [facility] [address] [facility] [id number] [place] [address] Jan, [facility] [place] [facility] [address] [facility] [id number], [place] [address] Jan, [facility] [place] [facility] [address] [facility] [id number], [place] [address] Jan, [facility] [address] [facility] [id number], [place] [id number] Jan, [facility] [place] [facility] [address] [facility] [id number], [place] [address] Dec, [facility] [address] [facility] [id number][place] [id number] Nov, [facility] [place] [facility] [address] [id number], [place] [address] Nov, [facility] [address] [facility] [id number], [place] [id number] Oct, [facility] [place] [facility] [address] [facility] [id number], [place] [address] Oct, [facility] [address] [facility] [id number], [place] [id number] Oct, [facility] [place] [facility] [address] [id number] [place] [address] Oct, [facility] [place] [facility] [address] [facility] [id number] [place] [address] August, [facility] [place] [facility] [address] [facility] [id number] [place] [address] August, [facility] [place] [facility] [address] [facility] [id number] [place] [address] August, [facility] [place] [facility] [address] [facility] [id number] [place] [address] August, [facility] [address] [facility] [id number], [place] [id number] Jul, [facility] [place] [facility] [address] [facility] [id number] [place] [address] Jul, [facility] [address] [facility] [id number], [place] [id number] Jun, [facility] [place] [facility] [address] [facility] [id number] [place] [address] Jun, [facility] [address] [facility] [id number], [place] [id number] Jun, [facility] [place] [facility] [address] [facility] [id number], [place] [address] Jun, [facility] [address] [facility] [id number][place] [id number] Jun, [facility] [place] [facility] [address] [id number] [place] [address] Jun, [facility] [address] [facility] [id number] [place] [id number] Jun, [facility] [place] [facility] [address] [facility] [id number] [place] [address] Jun, [facility] [address] [id number], [place] [id number] May, [facility] [place] [facility] [address] [facility] [id number], [place] [address] May, [facility] [address] [facility] [id number], [place] [id number] May, [facility] [place] [facility] [address] [facility] [id number], [place] [address] May, [facility] [place] [facility] [id number] [place] [address] May, [facility] [place] [facility] [address] [facility] [id number] [place] [address] May, [facility] [address] [facility] [id number], [place] [id number] May, [facility] [place] [facility] [address]00565[address], [place] [address] May, [facility] [id number], [place] [id number] May, [facility] [place] [facility] [address]00565100[place], [place] [address] May, [facility] [place] [facility] [id number], [place] [address] Apr, [facility] [place] [facility] [id number], [place] [address] Apr, [facility] [place] [id number] [id number] Apr, [facility] [place] [facility] [address] [facility] [id number], [place] [address] Apr, [facility] [place] [address] [facility] [id number][place] [id number] Sep, [facility] [place] [facility] [address] [facility] [id number], [place] [address] 16 Sep, 2012 [facility] [place] [address] [facility] [id number][place] [id number] Sep, 2012 [facility] [place] [address] [facility] [id number][place] [id number] Sep, [facility] [address] [facility] [id number] [place] [address] Jun, [facility] [place] [address] [id number] [place] [id number] Nov, [facility] [place] [address] [id number] [place] [id number] Nov, [facility] [place] [address] [id number] [place] [id number] Nov, [facility] [place] [address] [id number] [place] [id number] Nov, [facility] [place] [address] [id number] [place] [id number] Nov, [facility] [place] [address] [id number] [place] [id number] Nov, [facility] [place] [address] [id number] [place] [id number] Nov, [facility] [place] [address] [id number] [place] [id number] Nov, [facility] [place] [address] [id number] [place] [id number] Nov, [facility] [place] [address] [id number] [place] [id number] Sep, [facility] [place] [address] [id number] [place] [id number] Sep, [facility] [place] [address] [id number] [place] [id number] Sep, [facility] [place] [address] [id number] [place] [id number] Sep, [facility] [facility] [address] [id number] [place] [id number] August, [facility] [address] [id number] [place] [id number] August, [facility] [address] [id number] [place] [id number] August, [facility] [address] [id number] [place] [id number] August, [facility] [address] [facility] [id number] [place] [address] Sep, IMMUNIZATIONS No Known Immunizations SOCIAL HISTORY [...] 11/2014 Surgical History amputation right mid-calf/foot at [facility] 01/2015 Hospitalization History Yana Cedeno post op infection to right foot, amputations to mid-calf 01/2015 Hospitalization History [facility] In post-op 7 days, discharges with home health -02/2015 Hospitalization History [facility] ER visit for sore on right stump 04/2016 Hospitalization History [facility] wound on left lower leg, culture +for Strep G 12/2016
--- OUTSIDE RECORDS SUMMARY | 2018-10-31 17:40 | XMS REPORT ---
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 Active 054138165 Problem Other chronic pain G89.29 Active 62253923 Problem Diabetes type 2, uncontrolled E11.65 Active 187914683 Problem Anaphylactic reaction to bee sting, accidental or unintentional, initial encounter T63.441A Active 831882266 Problem Skin ulcer of left lower leg, limited to breakdown of skin L97.921 Active 85007032 Problem Erectile dysfunction, unspecified erectile dysfunction type N52.9 Active 735515255 Problem Varicose veins of left lower extremity with ulcer other part of lower leg I83.028 Active 65181370 Problem 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 Active 754470479 Problem Phantom pain R52 Active 383853267 Problem Essential hypertension I10 Active 53519946 Problem DM neuro manif type II E11.49 Active 52142296 Problem Acquired absence of right leg below knee Z89.511 Active 622758871 Problem Cellulitis of left lower extremity L03.116 Active 944991239 Problem Acute pain of left shoulder M25.512 Active 36443309 Problem Mild intermittent asthma without complication J45.20 Active 927110363 Problem Reflux esophagitis K21.0 Active 261512842 Problem Obstructive sleep apnea syndrome G47.33 Active 22343851 Problem Hammertoe of left foot M20.42 Active 179412284 ALLERGIES Substance Reaction Event Type Date Status Victoza vomiting Drug Allergy Jul, Active Lopid vomiting Drug Allergy Jul, Active Cleocin vomiting Drug Allergy Jul, Active Cephalexin rash Drug Allergy Jul, Active ENCOUNTERS Encounter Location Date Diagnosis [facility] [address] [address] Dec, [facility] [id number] [place] [id number] Nov, [address] [id number] Oct, Anaphylactic reaction to bee sting, accidental or unintentional, initial encounter T63.441A ; Pain in right shoulder M25.511 and Other chronic pain G89.[address] [id number] Oct, Diabetes type 2, uncontrolled E11.[address] [id number] Oct, Diabetes type 2, uncontrolled E11.65 and Cellulitis of left lower extremity L03.[address] [id number] Oct, Phantom pain R52 [facility] [id number] [place] [address] 15 Sep, 2017 Onychomycosis B35.1 ; Impaired circulation of left leg I99.9 and DM neuro manif type II E11.49 [id number] [place] [address] [id number] Sep, BMI 40.0-44.9, adult Z68.41 ; Skin ulcer of left lower leg, limited to breakdown of skin L97.921 ; Acute pain of left shoulder M25.512 ; DM neuro manif type II E11.49 ; Mild intermittent asthma without complication J45.20 and Phantom pain R52 [facility] [id number] [place] [address] [id number] Sep, Phantom pain R52 [facility] [id number] [place] [address] [id number] August, Phantom pain R52 [facility] [id number] [place] [address] [id number] August, Acquired absence of right leg below knee Z89.511 [facility] [address] [facility] [id number] [place] [id number] August, Acquired absence of right leg below knee Z89.511 [address], [place] [address] August, Diabetes type 2, uncontrolled E11.65 [id number] [place] [address] August, [address] [place] [address] August, [address] [place] [address] [id number] August, BMI 40.0-44.9, adult Z68.41 ; 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 and Acquired absence of right leg below knee Z89.[address] [id number] [place] [address] August, [facility] [address] [facility] [id number] [place] [id number] Jul, Skin ulcer of left lower leg, limited to breakdown of skin L97.921 [facility] [id number] [place] [id number] Jul, [address] [place] [id number] Jul, BMI 40.0-44.9, adult Z68.41 ; Skin ulcer of left lower leg, limited to breakdown of skin L97.921 and DM neuro manif type II E11.49 [place] [address] [facility] [id number], [place] [address] Jul, [facility] [id number] [place] [id number] Jul, [facility] [address] [facility] [id number] [place] [id number] Jul, [facility] [id number] [place] [address] [id number] Jun, Erectile dysfunction, unspecified erectile dysfunction type N52.9 [facility] [address] [place] [address] Jun, [facility] [id number] [place] [address] [id number] Jun, BMI 40.0-44.9, adult Z68.41 ; Diabetes type 2, uncontrolled E11.65 ; Phantom pain R52 ; Subluxation of right shoulder joint, sequela S43.001S and Erectile dysfunction, unspecified erectile dysfunction type N52.9 [facility] [address] [place] [address] Jun, DM neuro manif type II E11.49 ; Onychomycosis B35.1 and Hammertoe of left foot M20.42 [address] [address]00565[address], [place] [address] Jun, [facility] [address] [place] [address] [id number] Jun, DM neuro manif type II E11.[address] [id number] [id number] Jun, DM neuro manif type II E11.49 [address]00565100[place] [id number] May, DM neuro manif type II E11.49 ; Venous insufficiency (chronic) (peripheral) I87.2 ; 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 ; Essential hypertension I10 and Phantom pain R52 [facility] 120 [facility] [id number] [place] [address] [id number] Apr, Diabetes type 2, uncontrolled E11.65 ; Acquired absence of right leg below knee Z89.511 ; Essential hypertension I10 ; Reflux esophagitis K21.0 and Phantom pain R52 [facility] [address] [place] [address] [id number] Apr, BMI 40.0-44.9, adult Z68.41 and Wheelchair bound Z99.3 [facility] [id number] [place] [address] [id number] Mar, [id number] [place] [address] [id number] Mar, BMI 40.0-44.9, adult Z68.41 ; Diabetes type 2, uncontrolled E11.65 ; Mild intermittent asthma without complication J45.20 ; Phantom pain R52 ; Reflux esophagitis K21.0 and Essential hypertension I10 [id number] [place] [address] [id number] Feb, Phantom pain R52 [id number] [place] [address] [id number] Feb, Phantom pain R52 and Acute pain of left shoulder M25.512 [address] [place] [address] [id number] Jan, Phantom pain R52 [address] [place] [address] [id number] Jan, DM neuro manif type II E11.49 ; Cellulitis of left lower extremity L03.116 ; Obstructive sleep apnea syndrome G47.33 ; Thyroid disorder screen Z13.29 and Lipid screening Z13.[address] [place] [address] [id number] Jan, [id number] [place] [address] [id number] Dec, DM neuro manif type II E11.49 ; Phantom pain R52 and Mild intermittent asthma without complication J45.[address] [place] [address] [id number] Dec, Wound of left lower extremity, subsequent encounter S81.802D [address] [place] [address] [id number] Nov, [facility] [id number] [place] [address] Nov, [address] [place] [address] [id number] Nov, DM neuro manif type II E11.49 ; Mild intermittent asthma without complication J45.20 ; Essential hypertension I10 and Phantom pain R52 [facility] [id number] [place] [id number] Oct, Phantom pain R52 [facility] [id number] [place] [address] [id number] Sep, Phantom pain R52 ; DM neuro manif type II E11.49 and Essential hypertension I10 [facility] [id number] [place] [address] [id number] August, DM neuro manif type II E11.49 ; Phantom pain R52 and Essential hypertension I10 [facility] [id number] [place] [address] [id number] Jul, DM neuro manif type II E11.49 and Phantom pain R52 [facility] [address] [id number], [place] [address] Jun, Onychomycosis B35.1 and DM neuro manif type II E11.49 [facility] [id number] [place] [address] [id number] Jun, DM neuro manif type II E11.49 ; Phantom pain R52 ; Essential hypertension I10 and Diabetes with neurological manifestations, type II or unspecified type, not stated as uncontrolled 250.60 [facility] [id number] [place] [address] [id number] Apr, DM neuro manif type II E11.49 ; Phantom pain R52 ; Essential hypertension I10 and Mild intermittent asthma without complication J45.20 [facility] [id number] [place] [id number] Apr, Need for follow up care after discharge from healthcare facility Z92.89 and Wound of right lower extremity, subsequent encounter S81.801D [facility] [id number] [place] [address] [id number] Mar, Phantom pain R52 ; DM neuro manif type II E11.49 and Essential hypertension I10 [facility] [id number] [place] [address] [id number] Feb, DM neuro manif type II E11.49 ; Phantom pain R52 and Essential hypertension I10 [facility] [id number] [place] [address] [id number] Jan, Phantom pain R52 and DM neuro manif type II E11.49 [id number] [place] [address] [id number] Dec, [address] [id number] Dec, DM neuro manif type II E11.49 ; Phantom pain R52 ; Mild intermittent asthma without complication J45.20 and Essential hypertension I10 [facility] [id number] [place] [address] Dec, Onychomycosis B35.1 ; Xerosis of skin L85.3 and DM neuro manif type II E11.49 [id number] [place] [address] [id number] Nov, Acquired absence of right leg below knee Z89.511 [address] [place] [address] [id number] Nov, [address] [place] [address] [id number] Nov, [address] [place] [address] [id number] Sep, [address] [id number] Sep, Diabetes type 2, uncontrolled E11.65 ; Leg wound, left, initial encounter S81.802A and Erectile disorder due to medical condition in male N52.1 [id number] [place] [address] [id number] Sep, [address] [place] [address] [id number] Jul, [address] [place] [address] [id number] Jul, [id number] [place] [address] [id number] Jul, [address] [place] [address] [id number] Jul, 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 ; Varicose vein of leg I83.93 ; Diabetes type 2, uncontrolled E11.65 and Chronic pain G89.29 [place] [id number] [place] [address] [id number] Jul, [id number] [place] [address] [id number] Jul, Diabetes with neurological manifestations, type II or unspecified type, not stated as uncontrolled 250.60 [facility] [id number] [place] [address] [id number] Jul, [facility] [address] [id number] Jul, [address] [place] [address] [id number] Jun, Diabetes type 2, uncontrolled E11.65 [address] [place] [address] [id number] Jun, Pain in right knee M25.561 ; Pain in left knee M25.562 ; Other chronic pain G89.29 and Primary osteoarthritis of both knees M17.0 [address] [place] [address] [id number] Apr, Diabetes type 2, uncontrolled E11.65 ; Puncture wound of foot, left, initial encounter S91.332A and Encounter for immunization Z23 [address] [address] [place] [address] [id number] 15 Apr, 2015 [address] [place] [address] [id number] Apr, [address] [place] [address] [id number] Feb, Acquired absence of right leg below knee Z89.511 [address] [place] [address] [id number] Feb, Acquired absence of right leg below knee Z89.511 [address] [place] [address] [id number] Feb, Diabetes type 2, uncontrolled E11.65 and Acquired absence of right leg below knee Z89.511 [address] [place] [address] [id number] Jan, [facility] [address] [id number] [place] [id number] Jan, [facility] [place] [address]65100[place], [place] [address] Jan, [facility] [id number] [place] [id number] Jan, [facility] [id number] [place] [address] [id number] Dec, [facility] [id number] [place] [address] [id number] Dec, Diabetes with neurological manifestations, type II or unspecified type, not stated as uncontrolled 250.60 and Open wound of foot except toe(s) alone, without mention of complication 892.0 [facility] [id number] [place] [address] [id number] Dec, [facility] [id number] [place] [address] [id number] Nov, [facility] [id number] [place] [address] [id number] Nov, Cellulitis of foot 682.7 [facility] [id number] [place] [address] [id number] Oct, [facility] [id number] [place] [address] [id number] Oct, Corneal abrasion 918.1 [facility] [id number] [place] [address] [id number] Oct, [facility] [id number] [place] [address] [id number] Oct, [facility] [id number] [place] [address] [id number] August, [facility] [id number] [place] [address] [id number] August, [facility] [id number] [place] [address] [id number] August, [facility] [id number] [place] [address] [id number] August, [facility] [address] [facility] [id number] [place] [phone] August, Diabetes mellitus without mention of complication, type II or unspecified type, not stated as uncontrolled 250.00 [facility] [address] [id number] [place] [address] 14 Jul, 2014 [facility] [address] [id number], [place] [address] Jul, [facility] [address] [id number], [place] [address] Apr, [facility] [address] [id number], [place] [address] Apr, [facility] [address] [facility] [id number], [place] [address] Mar, [facility] [address] [id number], [place] [address] Mar, [facility] [address] [id number], [place] [address] Mar, [facility] [address] [id number], [place] [address] Mar, [facility] [address] [id number], [place] [address] Mar, [facility] [address] [id number], [place] [address] Mar, [facility] [address] [facility] [id number] [place] [phone] Mar, [facility] [address] [id number], [place] [address] Mar, [facility] [address] [facility] [id number], [place] [address] Mar, [facility] [address] [facility] [id number], [place] [address] Mar, [facility] [place] [facility] [address] [facility] [id number] [place] [address] Mar, [facility] [place] [facility] [address] [facility] [id number] [place] [address] Mar, [facility] [place] [facility] [address] [facility] [id number] [place] [address] Mar, [facility] [address] [facility] [id number] [place] [id number] Mar, [facility] [place] [facility] [address] [facility] [id number] [place] [address] Jan, [facility] [address] [facility] [id number] [place] [id number] Jan, [facility] [place] [facility] [address] [facility] [id number], [place] [address] Jan, [facility] [place] [facility] [address] [facility] [id number], [place] [address] Jan, [facility] [place] [facility] [address] [facility] [id number], [place] [address] Jan, [facility] [address] [facility] [id number] [place] [id number] Jan, [facility] [place] [facility] [address] [facility] [id number], [place] [address] Dec, [facility] [address] [facility] [id number] [place] [id number] Nov, [facility] [place] [facility] [address] [facility] [id number], [place] [address] Nov, [facility] [address] [facility] [id number] [place] [id number] Oct, [facility] [place] [facility] [address] [facility] [id number], [place] [address] Oct, [facility] [address] [facility] [id number] [place] [id number] Oct, [facility] [place] [facility] [address] [facility] [id number], [place] [address] Oct, [facility] [place] [facility] [address] [id number] [place] [address] August, [facility] [place] [facility] [address] [id number] [place] [address] August, [facility] [place] [facility] [address] [facility] [id number] [place] [address] August, [facility] [place] [facility] [address] [facility] [id number] [place] [address] August, [facility] [address] [id number] [place] [id number] Jul, [facility] [place] [facility] [address] [id number] [place] [address] Jul, [facility] [address] [id number] [place] [id number] Jun, [facility] [place] [facility] [address] [facility] [id number], [place] [address] Jun, [facility] [address] [id number] [place] [id number] Jun, [facility] [place] [facility] [address] [facility] [id number], [place] [address] Jun, [facility] [address] [id number] [place] [id number] Jun, [facility] [place] [facility] [address] [facility] [id number], [place] [address] Jun, [facility] [address] [id number] [place] [id number] Jun, [facility] [place] [facility] [address] [id number], [place] [address] Jun, [facility] [address] [id number] [place] [id number] May, [facility] [place] [facility] [address] [id number] [place] [address] May, [facility] [address] [id number] [place] [id number] May, [facility] [address] [facility] [id number], [place] [address] May, [facility] [place] [facility] [address] [facility] [id number], [place] [address] May, [facility] [address] [facility] [id number], [place] [address] May, [facility] [place] [address] [facility] [id number] [place] [id number] May, [facility] [address] [facility] [id number], [place] [address] May, [facility] [place] [address] [facility] [id number] [place] [id number] May, [facility] [id number], [place] [address] May, [facility] [address] [facility] [id number], [place] [address] Apr, [facility] [address] [facility] [id number], [place] [address] Apr, [facility] [place] [address] [facility] [id number] [place] [id number] Apr, [facility] [address] [facility] [id number], [place] [address] Apr, [facility] [place] [address] [facility] [id number] [place] [id number] Sep, [facility] [address] [facility] [id number], [place] [address] 16 Sep, 2012 [facility] [place] [address] [facility] [id number] [place] [id number] 14 Sep, 2012 [facility] [place] [address] [facility] [id number] [place] [id number] 12 Sep, 2012 [facility] [address] [facility] [id number], [place] [address] Jun, [facility] [place] [address] [id number] [place] [id number] Nov, [facility] [place] [address] [id number] [place] [id number] Nov, [facility] [place] [address] [id number] [place] [id number] Nov, [facility] [place] [address] [id number] [place] [id number] Nov, [facility] [place] [address] [id number] [place] [id number] Nov, [facility] [place] [address] [id number] [place] [id number] Nov, [facility] [place] [address] [id number] [place] [id number] Nov, [facility] [place] [address] [id number] [place] [id number] Nov, [facility] [place] [address] [id number] [place] [id number] Nov, [facility] [place] [address] [id number] [place] [id number] Sep, [facility] [address] [id number] [place] [id number] Sep, [facility] [address] [id number] [place] [id number] Sep, [facility] [address] [id number] [place] [id number] Sep, [facility] [address] [id number] [place] [id number] August, [facility] [address] [id number] [place] [id number] August, [facility] [address] [id number] [place] [id number] August, [facility] [address] [id number] [place] [id number] August, [facility] [place] [id number], [place] [address] Sep, IMMUNIZATIONS No Known Immunizations SOCIAL HISTORY Never Assessed REASON FOR VISIT spots on leg Lizeth RN PLAN OF CARE Activity Details Follow Up 1 Week Reason:leg ulcer VITAL SIGNS Height 72 in 2017-08-03 Weight 319.2 lbs 2017-08-03 Temperature 97.8 degrees Fahrenheit 2017-08-03 Heart Rate 98 bpm 2017-08-03 Respiratory Rate 18 2017-08-03 BMI 43.29 kg/m2 2017-08-03 Blood pressure systolic 138 mmHg 2017-08-03 Blood pressure diastolic 78 mmHg 2017-08-03 MEDICATIONS Medication Instructions Dosage Frequency Start Date End Date Duration Status Blood Glucose Test Strip Test Strips as directed 8h Dec, 30 days Active Walker - as directed Apr, Active Ibuprofen 800 MG Orally Three times a day 1 tablet with food or milk as needed 8h Feb, Active ProAir HFA 108 (90 Base) MCG/ACT Inhalation every 4-6 hours as needed 2 puffs Jul, Active Gabapentin 600 MG Orally Three times a day 1 capsule 1 tab qhs x 5 d then bid x 5 d then tid 8h Dec, Active Blood Pressure Kit ... as directed Mar, Active BD Pen Needle Nedra U/F 32G X 4 MM as directed 8h Sep, Active Farxiga 5 mg Orally Once a day in the morning 1 tablet Jun, Active Leg Prosthesis N/A DON: 99 as directed Right below knee definitive Nov, Active Doxycycline Hyclate 100 mg Orally Once a day 1 capsule 24h Jul, August, 10 day(s) Active Silvadene 1 % Externally Once a day 1 application to affected area 24h Jul, Active Hydrocodone-Acetaminophen 7.5-325 MG Orally every 6 hrs PRN must last 1 m 1 tablet as needed Jun, Active Lancets - as directed Mar, Active Singulair 10 mg Orally Once a day 1 tablet in the evening 24h Active Amlodipine Besylate 10 mg Orally Once a day 1 tablet 24h Active BD Insulin Syringe 30G X 1/2 subcutaneously 5 times daily as directed Dec, Active Tresiba FlexTouch 200 UNIT/ML Subcutaneous at bedtime 150 units Sep, Active Omeprazole 40 MG Orally Once a day 1 capsule 24h 30 days Active Wheelchair - as directed Apr, lifetime Active Potassium Chloride 20 MEQ Orally Once a day 1 tablet 24h Dec, Active Metformin HCl 1000 MG Orally Twice a day 1 tablet with meals 12h Active NovoLog 100 UNIT/ML Subcutaneous 3 times a day, E11.65 60 units Jun, Active Diovan HCT 160-12.5 MG Orally Once a day take 1 tablet 24h Active Zoloft 50 mg Orally Once a day 1 tablet 24h Active Pioglitazone HCl 30 MG DX- E11.65 Once a day 1 tablet 24h Jun, Active Gemfibrozil 600 MG Orally twice a day take 1 tablet 12h Active Sildenafil Citrate 20 mg Orally do not take more than 1-2 tabs in a 24 hour period 1-2 tablets prn for sexual activity Jun, Active RESULTS No Results PROCEDURES No [...] 11/2014 Surgical History amputation right mid-calf/foot at [facility] 01/2015 Hospitalization History [facility] post op infection to right foot, amputations to mid-calf 01/2015 Hospitalization History [facility] In post-op 7 days, discharges with home health -02/[facility]2016 [facility] wound on left lower leg, culture +for Strep G 12/2016
--- OUTSIDE RECORDS SUMMARY | 2018-10-31 17:40 | XMS REPORT ---
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 Active 318580968 Problem Other chronic pain G89.29 Active 94739597 Problem Diabetes type 2, uncontrolled E11.65 Active 048749887 Problem Anaphylactic reaction to bee sting, accidental or unintentional, initial encounter T63.441A Active 902001743 Problem Skin ulcer of left lower leg, limited to breakdown of skin L97.921 Active 86841443 Problem Erectile dysfunction, unspecified erectile dysfunction type N52.9 Active 630187364 Problem Varicose veins of left lower extremity with ulcer other part of lower leg I83.028 Active 08697244 Problem 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 Active 801149735 Problem Phantom pain R52 Active 081937510 Problem Essential hypertension I10 Active 03319368 Problem DM neuro manif type II E11.49 Active 63792963 Problem Acquired absence of right leg below knee Z89.511 Active 047340366 Problem Cellulitis of left lower extremity L03.116 Active 816879621 Problem Acute pain of left shoulder M25.512 Active 57018148 Problem Mild intermittent asthma without complication J45.20 Active 399868540 Problem Reflux esophagitis K21.0 Active 003050317 Problem Obstructive sleep apnea syndrome G47.33 Active 18433442 Problem Hammertoe of left foot M20.42 Active 766968725 ALLERGIES No Information ENCOUNTERS Encounter Location Date Diagnosis [facility] [address] [facility] [id number], [place] [address] Dec, [facility] [id number] [place] [address] [id number] Dec, [facility] [id number] [place] [address] [id number] Nov, Diabetes type 2, uncontrolled E11.65 and BMI 40.0-44.9, adult Z68.41 [place] [id number] [place] [address] [id number] Oct, Anaphylactic reaction to bee sting, accidental or unintentional, initial encounter T63.441A ; Pain in right shoulder M25.511 and Other chronic pain G89.29 [place] [id number] [place] [address] [id number] Oct, Diabetes type 2, uncontrolled E11.65 [place] [id number] [place] [address] [id number] Oct, Diabetes type 2, uncontrolled E11.65 and Cellulitis of left lower extremity L03.116 [address] [id number] [place] [address] [id number] Oct, Phantom pain R52 [facility] [address] [place] [address] Sep, Onychomycosis B35.1 ; Impaired circulation of left leg I99.9 and DM neuro manif type II E11.49 [facility] [address] [place] [address] [id number] Sep, BMI 40.0-44.9, adult Z68.41 ; Skin ulcer of left lower leg, limited to breakdown of skin L97.921 ; Acute pain of left shoulder M25.512 ; DM neuro manif type II E11.49 ; Mild intermittent asthma without complication J45.20 and Phantom pain R52 [place] [id number] [place] [address] [id number] Sep, Phantom pain R52 [place] [id number] [place] [address] [id number] August, Phantom pain R52 [place] [id number] [place] [address] [id number] August, Acquired absence of right leg below knee Z89.511 [facility] [address] [facility] [id number][place] [address] August, Acquired absence of right leg below knee Z89.511 [place] [address] [address] August, Diabetes type 2, uncontrolled E11.65 [place] [address] [place] [id number] [place] [address] August, [place] [id number] [place] [address] August, [address] [place] [address] [id number] August, BMI 40.0-44.9, adult Z68.41 ; 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 and Acquired absence of right leg below knee Z89.[address] [id number] [place] [address] August, [facility] [address] [facility] [id number][place] [id number] Jul, Skin ulcer of left lower leg, limited to breakdown of skin L97.921 [facility] [address] [facility] [id number][place] [id number] Jul, [address]005[address] [id number] Jul, BMI 40.0-44.9, adult Z68.41 ; Skin ulcer of left lower leg, limited to breakdown of skin L97.921 and DM neuro manif type II E11.49 [place] [address] [facility] [id number], [place] [address] Jul, [facility] [id number], [place] [id number] Jul, [facility] [address] [facility] [id number], [place] [id number] Jul, [facility] [address] [place] [address] [id number] [id number] Jun, Erectile dysfunction, unspecified erectile dysfunction type N52.9 [facility] [address] [place] [address] Jun, [facility] [address] [place] [address] [id number] Jun, BMI 40.0-44.9, adult Z68.41 ; Diabetes type 2, uncontrolled E11.65 ; Phantom pain R52 ; Subluxation of right shoulder joint, sequela S43.001S and Erectile dysfunction, unspecified erectile dysfunction type N52.9 [facility] [address] [place] [address] Jun, DM neuro manif type II E11.49 ; Onychomycosis B35.1 and Hammertoe of left foot M20.42 [place] [address] [place] [address] Jun, [facility] [address] [place] [address] [id number] Jun, DM neuro manif type II E11.[address] [id number] [id number] Jun, DM neuro manif type II E11.49 [facility] [address] [facility] [id number][place] [id number] May, DM neuro manif type II E11.49 ; Venous insufficiency (chronic) (peripheral) I87.2 ; 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 ; Essential hypertension I10 and Phantom pain R52 [facility] [address] [facility] [id number], [place] [id number] Apr, Diabetes type 2, uncontrolled E11.65 ; Acquired absence of right leg below knee Z89.511 ; Essential hypertension I10 ; Reflux esophagitis K21.0 and Phantom pain R52 [facility] [address] [facility] [id number] [place] [address] [id number] Apr, BMI 40.0-44.9, adult Z68.41 and Wheelchair bound Z99.3 [facility] [id number] [place] [address] [id number] Mar, [address] [id number] Mar, BMI 40.0-44.9, adult Z68.41 ; Diabetes type 2, uncontrolled E11.65 ; Mild intermittent asthma without complication J45.20 ; Phantom pain R52 ; Reflux esophagitis K21.0 and Essential hypertension I10 [facility] [address] [place] [address] [id number] [place] [address] [id number] Feb, Phantom pain R52 [place] [id number] [place] [address] [id number] Feb, Phantom pain R52 and Acute pain of left shoulder M25.512 [place] [id number] [place] [address] [id number] Jan, Phantom pain R52 [place] [id number] [place] [address] [id number] Jan, DM neuro manif type II E11.49 ; Cellulitis of left lower extremity L03.116 ; Obstructive sleep apnea syndrome G47.33 ; Thyroid disorder screen Z13.29 and Lipid screening Z13.[address] [place] [address] [id number] Jan, [place] [id number] [place] [address] [id number] Dec, DM neuro manif type II E11.49 ; Phantom pain R52 and Mild intermittent asthma without complication J45.20 [place] [id number] [place] [address] [id number] Dec, Wound of left lower extremity, subsequent encounter S81.802D [address] [place] [address] [id number] Nov, [facility] [id number] [place] [address] Nov, [facility] [address] [place] [address] [id number] Nov, DM neuro manif type II E11.49 ; Mild intermittent asthma without complication J45.20 ; Essential hypertension I10 and Phantom pain R52 [facility] [id number], [place] [id number] Oct, Phantom pain R52 [facility] [id number], [place] [id number] Sep, Phantom pain R52 ; DM neuro manif type II E11.49 and Essential hypertension I10 [facility] [id number], [place] 601[address] August, DM neuro manif type II E11.49 ; Phantom pain R52 and Essential hypertension I10 [facility] [id number], [place] [id number] Jul, DM neuro manif type II E11.49 and Phantom pain R52 [facility] [address]00565100[place], [place] [address] Jun, Onychomycosis B35.1 and DM neuro manif type II E11.49 [facility] [id number], [place] [id number] Jun, DM neuro manif type II E11.49 ; Phantom pain R52 ; Essential hypertension I10 and Diabetes with neurological manifestations, type II or unspecified type, not stated as uncontrolled 250.60 [facility] [id number], [place] [id number] Apr, DM neuro manif type II E11.49 ; Phantom pain R52 ; Essential hypertension I10 and Mild intermittent asthma without complication J45.20 [facility] [id number], [place] [id number] Apr, Need for follow up care after discharge from healthcare facility Z92.89 and Wound of right lower extremity, subsequent encounter S81.801D [facility] [id number], [place] [id number] Mar, Phantom pain R52 ; DM neuro manif type II E11.49 and Essential hypertension I10 [facility] [id number], [place] [id number] Feb, DM neuro manif type II E11.49 ; Phantom pain R52 and Essential hypertension I10 [facility]00565100[place] [address] Jan, Phantom pain R52 and DM neuro manif type II E11.49 [place] [id number] [place] [address] [id number] Dec, [place] [id number] [place] [address] [id number] Dec, DM neuro manif type II E11.49 ; Phantom pain R52 ; Mild intermittent asthma without complication J45.20 and Essential hypertension I10 [facility] [address] [id number], [place] [address] Dec, Onychomycosis B35.1 ; Xerosis of skin L85.3 and DM neuro manif type II E11.49 [place] [id number] [place] [address] [id number] Nov, Acquired absence of right leg below knee Z89.511 [place] [id number] [place] [address] [id number] Nov, [place] [id number] [place] [address] [id number] Nov, [place] [id number] [place] [address] [id number] Sep, [place] [id number] [place] [address] [id number] Sep, Diabetes type 2, uncontrolled E11.65 ; Leg wound, left, initial encounter S81.802A and Erectile disorder due to medical condition in male N52.1 [address]00565100[place], [place] [id number] Sep, [address] [place] [address] [id number] Jul, [address] [place] [address] [id number] Jul, [place] [id number] [place] [address] [id number] Jul, [address] [place] [address] [id number] Jul, 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 ; Varicose vein of leg I83.93 ; Diabetes type 2, uncontrolled E11.65 and Chronic pain G89.29 [place] [id number] [place] [address] [id number] Jul, [facility] [address] [place] [address] [id number] [place] [address] [id number] Jul, Diabetes with neurological manifestations, type II or unspecified type, not stated as uncontrolled 250.60 [facility] [address] [place] [address] [id number] [place] [address] [id number] Jul, [facility] [address] [place] [id number] [place] [address] [id number] Jul, [place] [id number] [place] [address] [id number] Jun, Diabetes type 2, uncontrolled E11.65 [place] [id number] [place] [address] [id number] Jun, Pain in right knee M25.561 ; Pain in left knee M25.562 ; Other chronic pain G89.29 and Primary osteoarthritis of both knees M17.0 [place] [id number] [place] [address] [id number] Apr, Diabetes type 2, uncontrolled E11.65 ; Puncture wound of foot, left, initial encounter S91.332A and Encounter for immunization Z23 [facility] [id number] [place] [address] [id number] 15 Apr, 2015 [address] [place] [address] [id number] Apr, [place] [address] [place] [address] [id number] [place] [address] [id number] Feb, Acquired absence of right leg below knee Z89.511 [place] [id number] [place] [address] [id number] Feb, Acquired absence of right leg below knee Z89.511 [place] [address] [place] [address] [id number] [place] [address] [id number] 16 Feb, 2015 Diabetes type 2, uncontrolled E11.65 and Acquired absence of right leg below knee Z89.511 [place] [id number] [place] [address] [id number] Jan, [facility] [address] [place] [address] [id number], [place] [id number] Jan, [facility] [address]00565100[place], [place] [address] Jan, [facility] [address] [place] [address] [id number], [place] [address] Jan, [facility] [id number] [place] [address] [id number] Dec, [facility] [id number] [place] [address] [id number] Dec, Diabetes with neurological manifestations, type II or unspecified type, not stated as uncontrolled 250.60 and Open wound of foot except toe(s) alone, without mention of complication 892.0 [facility] [id number] [place] [address] [id number] Dec, [facility] [id number] [place] [address] [id number] Nov, [facility] [address] [place] [id number] [place] [address] [id number] Nov, Cellulitis of foot 682.7 [facility] [id number] [place] [address] [id number] Oct, [facility] [id number] [place] [address] [id number] Oct, Corneal abrasion 918.1 [facility] [id number] [place] [address] [id number] Oct, [facility] [id number] [place] [address] [id number] Oct, [facility] [id number] [place] [address] [id number] August, [facility] [id number] [place] [address] [id number] August, [facility] [id number], [place] [id number] August, [facility] [address] [place] [address] [id number] [place] [address] [id number] August, [facility] [address] [facility] [id number], [place] [id number] August, Diabetes mellitus without mention of complication, type II or unspecified type, not stated as uncontrolled 250.00 [facility] [address] [id number] [place] [address] 14 Jul, 2014 [facility] [address] [id number], [place] [address] Jul, [facility] [address] [id number], [place] [address] Apr, [facility] [address] [id number], [place] [address] Apr, [facility] [address] [facility] [id number], [place] [address] Mar, [facility] [address]00565100[place], [place] [address] Mar, [facility] [address] [id number], [place] [address] Mar, [facility] [address]00565100[place], [place] [address] Mar, [facility] [address] [place] [address] [id number], [place] [address] Mar, [facility] [address] [facility] [id number], [place] [address] Mar, [facility] [address] [id number], [place] [id number] Mar, [facility] [address] [facility] [id number], [place] [address] Mar, [facility] [address] [facility] [id number], [place] [address] Mar, [facility] [address] [facility] [id number], [place] [address] Mar, [facility] [place] [facility] [address] [facility] [id number] [place] [address] Mar, [facility] [place] [facility] [address] [facility] [id number] [place] [address] Mar, [facility] [place] [facility] [address] [facility] [id number] [place] [address] Mar, [facility] [address] [facility] [id number] [place] [id number] Mar, [facility] [place] [facility] [address] [facility] [id number] [place] [address] Jan, [facility] [address] [facility] [id number] [place] [id number] Jan, [facility] [place] [facility] [address] [facility] [id number] [place] [address] Jan, [facility] [place] [facility] [address] [address] Jan, [facility] [place] [facility] [address] [facility] [id number], [place] [address] Jan, [facility] [address] [facility] [id number], [place] 6[address] Jan, [facility] [place] [facility] [address] [facility] [id number], [place] [address] Dec, [facility] [address] [facility] [id number], [place] 895103844 Nov, [facility] [place] [facility] [address] [facility] [id number], [place] [address] Nov, [facility] [address] [facility] [id number], [place] [id number] Oct, [facility] [place] [facility] [address] [facility] [id number], [place] [address] Oct, [facility] [address] [facility] [id number], [place] 779708265 Oct, [facility] [place] [facility] [address] [facility] [id number], [place] [address] Oct, [facility] [place] [facility] [address] [id number] [place] [address] August, [facility] [place] [facility] [address] [facility] [id number], [place] [address] August, [facility] [place] [facility] [address] [facility] [id number] [place] [address] August, [facility] [place] [facility] [address] [facility] [id number], [place] [address] August, [facility] [address] [id number] [place] [id number] Jul, [facility] [place] [facility] [address] [facility] [id number], [place] [address] Jul, [facility] [address] [id number] [place] 9846[address] Jun, [facility] [place] [facility] [address] [id number], [place] [address] Jun, [facility] [address] [id number] [place] [address]48[address] Jun, [facility] [place] [facility] [address] [facility] [id number], [place] [address] Jun, [facility] [address] [id number] [place] [id number] Jun, [facility] [place] [facility] [address] [id number], [place] [address] Jun, [facility] [address] [id number] [place] [id number] Jun, [facility] [place] [facility] [address] [id number], [place] [address] Jun, [facility] [address] [id number] [place] [address] May, [facility] [place] [facility] [address] [id number], [place] [address] May, [facility] [address] [id number], [place] [address] May, [facility] [place] [facility] [address] [facility] [id number], [place] [address] May, [facility] [place] [facility] [address] [facility] [id number], [place] [address] May, [facility] [address] [facility] [id number], [place] [address] May, [facility] [address] [facility] [id number], [place] 720[address] May, [facility] [place] [facility] [address] [facility] [id number], [place] [address] May, [facility] [address] [facility] [id number], [place] [id number] May, [facility] [place] [facility] [address]00565100[place], [place] [address] May, [facility] [place] [facility] [address]00565100[place], [place] [address] Apr, [facility] [place] [facility] [address]00565100[place], [place] [address] Apr, [facility] [address] [facility] [id number], [place] [id number] Apr, [facility] [place] [facility] [address]00565100[place], [place] [address] Apr, [facility] [address] [facility] [id number], [place] [address] Sep, [facility] [place] [facility] [address] [facility] [id number], [place] [address] 16 Sep, 2012 [facility] [place] [address] [facility] [id number] [id number] 14 Sep, 2012 [facility] [place] [address] [facility] [id number] [id number] 12 Sep, 2012 [facility] [address] [facility] [id number], [place] [address] Jun, [facility] [place] [address] [id number] [place] [id number] Nov, [facility] [place] [address] [id number] [place] [id number] Nov, [facility] [place] [address] [id number] [place] [id number] Nov, [facility] [place] [address] [id number] [place] [id number] Nov, [facility] [place] [address] [id number] [place] [id number] Nov, [facility] [place] [address] [id number] [place] [id number] Nov, [facility] [place] [address] [id number] [place] [id number] Nov, [facility] [place] [address] [id number] [place] [id number] Nov, [facility] [place] [address] [id number] [place] [id number] Nov, [facility] [place] [address] [id number] [place] [id number] Sep, [facility] [place] [address] [id number] [place] [id number] Sep, [facility] [place] [address] [id number] [place] [id number] Sep, [facility] [place] [address] [id number] [place] [id number] Sep, [facility] [place] [address] [id number] [place] [id number] August, [facility] [place] [address] [id number] [place] [id number] August, [facility] [place] [address] [id number] [place] [id number] August, [facility] [place] [address] [id number] [place] [id number] August, [facility] [id number], [place] [address] Sep, IMMUNIZATIONS No Known Immunizations SOCIAL HISTORY [...] 11/2014 Surgical History amputation right mid-calf/foot at [facility] 01/2015 Hospitalization History [facility] post op infection to right foot, amputations to mid-calf 01/2015 Hospitalization History [facility] post-op 7 days, discharges with home health -02/2015 [facility]2016 [facility]ization History [facility] wound on left lower leg, culture +for Strep G 12/2016
--- OUTSIDE RECORDS SUMMARY | 2018-10-31 17:41 | XMS REPORT ---
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 Active 830306348 Problem Other chronic pain G89.29 Active 07182597 Problem Diabetes type 2, uncontrolled E11.65 Active 332115864 Problem Anaphylactic reaction to bee sting, accidental or unintentional, initial encounter T63.441A Active 828725453 Problem Skin ulcer of left lower leg, limited to breakdown of skin L97.921 Active 65678565 Problem Erectile dysfunction, unspecified erectile dysfunction type N52.9 Active 980169944 Problem Varicose veins of left lower extremity with ulcer other part of lower leg I83.028 Active 22077162 Problem 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 Active 941320411 Problem Phantom pain R52 Active 451909733 Problem Essential hypertension I10 Active 36079328 Problem DM neuro manif type II E11.49 Active 62714945 Problem Acquired absence of right leg below knee Z89.511 Active 566000551 Problem Cellulitis of left lower extremity L03.116 Active 801114060 Problem Acute pain of left shoulder M25.512 Active 16441613 Problem Mild intermittent asthma without complication J45.20 Active 223291038 Problem Reflux esophagitis K21.0 Active 900062069 Problem Obstructive sleep apnea syndrome G47.33 Active 11890780 Problem Hammertoe of left foot M20.42 Active 212155046 ALLERGIES Substance Reaction Event Type Date Status Victoza vomiting Drug Allergy Jul, Active Lopid vomiting Drug Allergy Jul, Active Cleocin vomiting Drug Allergy Jul, Active Cephalexin rash Drug Allergy Jul, Active ENCOUNTERS Encounter Location Date Diagnosis [facility] [address] [address] Dec, [facility] [id number] [place] [address] [phone] Nov, [address] [id number] Oct, Anaphylactic reaction to bee sting, accidental or unintentional, initial encounter T63.441A ; Pain in right shoulder M25.511 and Other chronic pain G89.[address] [id number] Oct, Diabetes type 2, uncontrolled E11.65 [facility] [address] [id number] Oct, Diabetes type 2, uncontrolled E11.65 and Cellulitis of left lower extremity L03.116 [facility] [address] [id number] Oct, Phantom pain R52 [facility] [id number] [place] [address] Sep, Onychomycosis B35.1 ; Impaired circulation of left leg I99.9 and DM neuro manif type II E11.49 [id number] [place] [address] [id number] Sep, BMI 40.0-44.9, adult Z68.41 ; Skin ulcer of left lower leg, limited to breakdown of skin L97.921 ; Acute pain of left shoulder M25.512 ; DM neuro manif type II E11.49 ; Mild intermittent asthma without complication J45.20 and Phantom pain R52 [facility] [id number] [place] [address] [phone] Sep, Phantom pain R52 [facility] [id number] [place] [address] [id number] August, Phantom pain R52 [facility] [id number] [place] [address] [phone] August, Acquired absence of right leg below knee Z89.511 [facility] [address] [facility] [id number] [place]ID[place] [id number] August, Acquired absence of right leg below knee Z89.511 [address], [place] [address] August, Diabetes type 2, uncontrolled E11.65 [place] [id number] [place] [address] August, [place] [address] [address] [place] [address] August, [address] [place] [address] [phone] August, BMI 40.0-44.9, adult Z68.41 ; 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 and Acquired absence of right leg below knee Z89.[address] [id number] [place] [address] August, [facility] [address] [facility] [id number] RIDGE[place] [id number] Jul, Skin ulcer of left lower leg, limited to breakdown of skin L97.921 [facility] [id number] [place] [id number] Jul, [address] [id number] Jul, BMI 40.0-44.9, adult Z68.41 ; Skin ulcer of left lower leg, limited to breakdown of skin L97.921 and DM neuro manif type II E11.49 [address] [facility] [id number], [place] [address] Jul, [facility] [id number] [place]ID[place] [id number] Jul, [facility] [address] [facility] [id number] [place] [id number] Jul, [facility] [id number] [place] [address] [phone] Jun, Erectile dysfunction, unspecified erectile dysfunction type N52.9 [facility] [address] [place] [address] Jun, [facility] [id number] [place] [address] [phone] Jun, BMI 40.0-44.9, adult Z68.41 ; Diabetes type 2, uncontrolled E11.65 ; Phantom pain R52 ; Subluxation of right shoulder joint, sequela S43.001S and Erectile dysfunction, unspecified erectile dysfunction type N52.9 [facility] [address] [place] [address] Jun, DM neuro manif type II E11.49 ; Onychomycosis B35.1 and Hammertoe of left foot M20.42 [address]00565100[place], [place] [address] Jun, [facility] [address] [place] [address] [id number] Jun, DM neuro manif type II E11.[address] [id number] [id number] Jun, DM neuro manif type II E11.49 [address] [phone] May, DM neuro manif type II E11.49 ; Venous insufficiency (chronic) (peripheral) I87.2 ; 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 [id number] [place] [address] [id number] Apr, Diabetes type 2, uncontrolled E11.65 ; Acquired absence of right leg below knee Z89.511 ; Essential hypertension I10 ; Reflux esophagitis K21.0 and Phantom pain R52 [facility] [address] [place] [address] [phone] Apr, BMI 40.0-44.9, adult Z68.41 and Wheelchair bound Z99.3 [facility] [id number] [place] [address] [id number] Mar, [id number] [place] [address] [phone] Mar, BMI 40.0-44.9, adult Z68.41 ; Diabetes type 2, uncontrolled E11.65 ; Mild intermittent asthma without complication J45.20 ; Phantom pain R52 ; Reflux esophagitis K21.0 and Essential hypertension I10 [id number] [place] [address] [id number] Feb, Phantom pain R52 [id number] [place] [address] [id number] Feb, Phantom pain R52 and Acute pain of left shoulder M25.512 [id number] [place] [address] [phone] Jan, Phantom pain R52 [id number] [place] [address] [phone] Jan, DM neuro manif type II E11.49 ; Cellulitis of left lower extremity L03.116 ; Obstructive sleep apnea syndrome G47.33 ; Thyroid disorder screen Z13.29 and Lipid screening Z13.[address] [place] [address] [phone] Jan, [id number] [place] [address] [phone] Dec, DM neuro manif type II E11.49 ; Phantom pain R52 and Mild intermittent asthma without complication J45.20 [address] [place] [address] [id number] Dec, Wound of left lower extremity, subsequent encounter S81.802D [address] [place] [address] [id number] Nov, [facility] [id number] [place] [address] Nov, [address] [place] [address] [phone] Nov, DM neuro manif type II E11.49 ; Mild intermittent asthma without complication J45.20 ; Essential hypertension I10 and Phantom pain R52 [facility] [id number] RIDGE[place] [phone] Oct, Phantom pain R52 [facility] [id number] [place] [address] [id number] Sep, Phantom pain R52 ; DM neuro manif type II E11.49 and Essential hypertension I10 [facility] [id number] [place] [address] [phone] August, DM neuro manif type II E11.49 ; Phantom pain R52 and Essential hypertension I10 [facility] [id number] [place] [address] [id number] Jul, DM neuro manif type II E11.49 and Phantom pain R52 [facility] [address] [id number], [place] [address] Jun, Onychomycosis B35.1 and DM neuro manif type II E11.49 [facility] [id number] [place] [address] [id number] Jun, DM neuro manif type II E11.49 ; Phantom pain R52 ; Essential hypertension I10 and Diabetes with neurological manifestations, type II or unspecified type, not stated as uncontrolled 250.60 [facility] [id number] [place] [address] [id number] Apr, DM neuro manif type II E11.49 ; Phantom pain R52 ; Essential hypertension I10 and Mild intermittent asthma without complication J45.20 [facility] [id number] RIDGE[place] [phone] Apr, Need for follow up care after discharge from healthcare facility Z92.89 and Wound of right lower extremity, subsequent encounter S81.801D [facility] [id number] [place] [address] [id number] Mar, Phantom pain R52 ; DM neuro manif type II E11.49 and Essential hypertension I10 [facility] [id number] [place] [address] [id number] Feb, DM neuro manif type II E11.49 ; Phantom pain R52 and Essential hypertension I10 [facility] [id number] [place] [address] [id number] Jan, Phantom pain R52 and DM neuro manif type II E11.49 [id number] [place] [address] [id number] Dec, [address] [phone] Dec, DM neuro manif type II E11.49 ; Phantom pain R52 ; Mild intermittent asthma without complication J45.20 and Essential hypertension I10 [facility] [id number] [place] [address] Dec, Onychomycosis B35.1 ; Xerosis of skin L85.3 and DM neuro manif type II E11.49 [id number] [place] [address] [id number] Nov, Acquired absence of right leg below knee Z89.511 [address] [place] [address] [phone] Nov, [id number] [place] [address] [id number] Nov, [id number] [place] [address] [id number] Sep, [address] [id number] Sep, Diabetes type 2, uncontrolled E11.65 ; Leg wound, left, initial encounter S81.802A and Erectile disorder due to medical condition in male N52.1 [id number] [place] [address] [id number] Sep, [id number] [place] [address] [id number] Jul, [address] [place] [address] [id number] Jul, [id number] [place] [address] [id number] Jul, [address] [place] [address] [id number] Jul, 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 ; Varicose vein of leg I83.93 ; Diabetes type 2, uncontrolled E11.65 and Chronic pain G89.29 [place] [id number] [place] [address] [id number] Jul, [id number] [place] [address] [id number] Jul, Diabetes with neurological manifestations, type II or unspecified type, not stated as uncontrolled 250.60 [facility] [id number] [place] [address] [id number] Jul, [facility] [address] [id number] Jul, [id number] [place] [address] [id number] Jun, Diabetes type 2, uncontrolled E11.65 [address] [place] [address] [id number] Jun, Pain in right knee M25.561 ; Pain in left knee M25.562 ; Other chronic pain G89.29 and Primary osteoarthritis of both knees M17.0 [address] [place] [address] [id number] Apr, Diabetes type 2, uncontrolled E11.65 ; Puncture wound of foot, left, initial encounter S91.332A and Encounter for immunization Z23 [address] [place] [address] [id number] [phone] Apr, 2015 [address] [place] [address] [id number] Apr, [address] [place] [address] [id number] Feb, Acquired absence of right leg below knee Z89.511 [address] [place] [address] [id number] Feb, Acquired absence of right leg below knee Z89.511 [address] [place] [address] [id number] Feb, Diabetes type 2, uncontrolled E11.65 and Acquired absence of right leg below knee Z89.511 [address] [place] [address] [id number] Jan, [facility] [address] [id number] [phone] Jan, [facility] [address], [place] [address] Jan, [facility] [id number] [place] [phone] Jan, [facility] [id number] [place] [address] [phone] Dec, [facility] [id number] [place] [address] [id number] Dec, Diabetes with neurological manifestations, type II or unspecified type, not stated as uncontrolled 250.60 and Open wound of foot except toe(s) alone, without mention of complication 892.0 [facility] [id number] [place] [address] [id number] Dec, [facility] [id number] [place] [address] [id number] Nov, [facility] [id number] [place] [address] [phone] Nov, Cellulitis of foot 682.7 [facility] [id number] [place] [address] [phone] Oct, [facility] [id number] [place] [address] [phone] Oct, Corneal abrasion 918.1 [facility] [id number] [place] [address] [phone] Oct, [facility] [id number] [place] [address] [phone] Oct, [facility] [id number] [place] [address] [id number] August, [facility] [id number] [place] [address] [id number] August, [facility] [id number] [place] [address] [phone] August, [facility] [id number] [place] [address] [phone] August, [facility] [address] [facility] [id number] [place]ID[place] [phone] August, Diabetes mellitus without mention of complication, type II or unspecified type, not stated as uncontrolled 250.00 [facility] [address] [id number] [place] [address] 14 Jul, 2014 [facility] [address] [id number], [place] [address] Jul, [facility] [address] [id number], [place] [address] Apr, [facility] [address] [id number], [place] [address] Apr, [facility] [address] [facility] [id number], [place] [address] Mar, [facility] [address] [id number], [place] [address] Mar, [facility] [address] [id number], [place] [address] Mar, [facility] [address] [id number], [place] [address] Mar, [facility] [address] [id number], [place] [address] Mar, [facility] [address] [id number], [place] [address] Mar, [facility] [address] [facility] [id number] [place]IDGE[place] [phone] Mar, [facility] [address] [id number], [place] [address] Mar, [facility] [address] [facility] [id number], [place] [address] Mar, [facility] [address] [facility] [id number], [place] [address] Mar, [facility] [place] [facility] [address] [facility] [id number] [place] [address] Mar, [facility] [place] [facility] [address] [facility] [id number] [place] [address] Mar, [facility] [place] [facility] [address] [facility] [id number] [place] [address] Mar, [facility] [address] [facility] [id number] [place]ID[place] [id number] Mar, [facility] [place] [facility] [address] [facility] [id number] [place] [address] Jan, [facility] [address] [facility] [id number] [place] [id number] Jan, [facility] [place] [facility] [address] [facility] [id number], [place] [address] Jan, [facility] [place] [facility] [address] [facility] [id number], [place] [address] Jan, [facility] [place] [facility] [address] [facility] [id number], [place] [address] Jan, [facility] [address] [facility] [id number] [place]ID[place] [id number] Jan, [facility] [place] [facility] [address] [facility] [id number], [place] [address] Dec, [facility] [address] [facility] [id number] [place]ID[place] [id number] Nov, [facility] [place] [facility] [address] [facility] [id number], [place] [address] Nov, [facility] [address] [facility] [id number] [place]ID[place] [id number] Oct, [facility] [place] [facility] [address] [facility] [id number], [place] [address] Oct, [facility] [address] [facility] [id number] [place]ID[place] [id number] Oct, [facility] [place] [facility] [address] [facility] [id number], [place] [address] Oct, [facility] [place] [facility] [address] [id number] [place] [address] August, [facility] [place] [facility] [address] [id number] [place] [address] August, [facility] [place] [facility] [address] [facility] [id number] [place] [address] August, [facility] [place] [facility] [address] [facility] [id number] [place] [address] August, [facility] [address] [id number] [place] [id number] Jul, [facility] [place] [facility] [address] [id number] [place] [address] Jul, [facility] [address] [id number] [place] [id number] Jun, [facility] [place] [facility] [address] [facility] [id number], [place] [address] Jun, [facility] [address] [id number] [place] [id number] Jun, [facility] [place] [facility] [address] [facility] [id number], [place] [address] Jun, [facility] [address] [id number] [place] [id number] Jun, [facility] [place] [facility] [address] [facility] [id number], [place] [address] Jun, [facility] [address] [id number] RID[place] [id number] Jun, [facility] [place] [facility] [address] [id number], [place] [address] Jun, [facility] [address] [id number] [place] [id number] May, [facility] [place] [facility] [address] [id number] [place] [address] May, [facility] [address] [id number] [place]ID[place] [id number] May, [facility] [address] [facility] [id number], [place] [address] May, [facility] [place] [facility] [address] [facility] [id number], [place] [address] May, [facility] [address] [facility] [id number], [place] [address] May, [facility] [address] [facility] [id number] [place]ID[place] [id number] May, [facility] [place] [facility] [address] [facility] [id number], [place] [address] May, [facility] [address] [facility] [id number] [place]ID[place] [id number] May, [facility] [place] [facility] [address], [place] [address] May, [facility] [place] [facility] [address] [facility] [id number], [place] [address] Apr, [facility] [place] [facility] [address] [facility] [id number], [place] [address] Apr, [facility] [place] [address] [facility] [id number] [place] [id number] Apr, [facility] [address] [facility] [id number], [place] [address] Apr, [facility] [place] [address] [facility] [id number] [place] [id number] Sep, [facility] [address] [facility] [id number], [place] [address] 16 Sep, 2012 [facility] [place] [address] [facility] [id number] [place] [id number] 14 Sep, 2012 [facility] [place] [address] [facility] [id number] [place] [id number] 12 Sep, 2012 [facility] [address] [facility] [id number], [place] [address] Jun, [facility] [place] [address] [id number] [place] [id number] Nov, [facility] [place] [address] [id number] [place] [id number] Nov, [facility] [place] [address] [id number] [place] [id number] Nov, [facility] [place] [address] [id number] [place] [id number] Nov, [facility] [place] [address] [id number] [place] [id number] Nov, [facility] [place] [address] [id number] [place] [id number] Nov, [facility] [place] [address] [id number] [place] [id number] Nov, [facility] [place] [address] [id number] [place] [id number] Nov, [facility] [place] [address] [id number] [place] [id number] Nov, [facility] [place] [address] [id number] [place] [id number] Sep, [facility] [place] [address] [id number] [place] [id number] Sep, [facility] [place] [address] [id number] [place] [id number] Sep, [facility] [place] [address] [id number] [place] [id number] Sep, [facility] [place] [address] [id number] [place] [id number] August, [facility] [place] [address] [id number] [place] [id number] August, [facility] [place] [address] [id number] [place], [place] [id number] August, [facility] [address] [id number] [place] [id number] August, [facility] [id number], [place] [address] Sep, IMMUNIZATIONS No Known Immunizations SOCIAL HISTORY Never Assessed REASON FOR VISIT Wound f/u left leg Medardo MARIE PLAN OF CARE Activity Details Follow Up 1 Week Reason:cellulitis VITAL SIGNS Height 72 in 2017-08-09 Weight 314.4 lbs 2017-08-09 Temperature 97.7 degrees Fahrenheit 2017-08-09 Heart Rate 98 bpm 2017-08-09 Respiratory Rate 16 2017-08-09 BMI 42.64 kg/m2 2017-08-09 Blood pressure systolic 138 mmHg 2017-08-09 Blood pressure diastolic 80 mmHg 2017-08-09 MEDICATIONS Medication Instructions Dosage Frequency Start Date End Date Duration Status NovoLog 100 UNIT/ML Subcutaneous 3 times a day, E11.65 60 units Jun, Active Potassium Chloride 20 MEQ Orally Once a day 1 tablet 24h Dec, Active Wheelchair - as directed Apr, lifetime Active Leg Prosthesis N/A DON: 99 as directed Right below knee definitive Nov, Active Gabapentin 600 MG Orally Three times a day 1 capsule 1 tab qhs x 5 d then bid x 5 d then tid 8h Dec, Active Blood Glucose Test Strip Test Strips as directed 8h Dec, 30 days Active Doxycycline Hyclate 100 mg Orally Once a day 1 capsule 24h Jul, August, 10 day(s) Active Diovan HCT 160-12.5 MG Orally Once a day take 1 tablet 24h Active Farxiga 5 mg Orally Once a day in the morning 1 tablet Active Sildenafil Citrate 20 mg Orally do not take more than 1-2 tabs in a 24 hour period 1-2 tablets prn for sexual activity Jun, Active Tresiba FlexTouch 200 UNIT/ML Subcutaneous at bedtime 150 units Sep, Active Walker - as directed Apr, Active Zoloft 50 mg Orally Once a [...] day 1 tablet with meals 12h Active ProAir HFA 108 (90 Base) MCG/ACT Inhalation every 4-6 hours as needed 2 puffs Jul, Active Amlodipine Besylate 10 mg Orally Once a day 1 tablet 24h Active Singulair 10 mg Orally Once a day 1 tablet in the evening 24h Active Omeprazole 40 MG Orally Once a day 1 capsule 24h 30 days Active Ibuprofen 800 MG Orally Three times a day 1 tablet with food or milk as needed 8h Feb, Active Gemfibrozil 600 MG Orally twice a day take 1 tablet 12h Active Blood Pressure Kit ... as directed Mar, Active Pioglitazone HCl 30 MG DX- E11.65 Once a day 1 tablet 24h 07 Jun, 2017 Active Lancets - as directed Mar, Active Hydrocodone-Acetaminophen 7.5-325 MG Orally every 6 [...] 11/2014 Surgical History amputation right mid-calf/foot at [facility] 01/2015 Hospitalization History [facility] post op infection to right foot, amputations to mid-calf 01/2015 Hospitalization History [facility] In post-op 7 days, discharges with home health -02/2015 Hospitalization History [facility] ER visit for sore on right stump 04/2016 Hospitalization History [facility] wound on left lower leg, culture +for Strep G 12/2016
--- OUTSIDE RECORDS SUMMARY | 2018-10-31 17:41 | XMS REPORT ---
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 Active 813462361 Problem Other chronic pain G89.29 Active 65882817 Problem Diabetes type 2, uncontrolled E11.65 Active 656473980 Problem Anaphylactic reaction to bee sting, accidental or unintentional, initial encounter T63.441A Active 530945992 Problem Skin ulcer of left lower leg, limited to breakdown of skin L97.921 Active 84933531 Problem Erectile dysfunction, unspecified erectile dysfunction type N52.9 Active 724930211 Problem Varicose veins of left lower extremity with ulcer other part of lower leg I83.028 Active 77020364 Problem 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 Active 478936998 Problem Phantom pain R52 Active 664126602 Problem Essential hypertension I10 Active 83650901 Problem DM neuro manif type II E11.49 Active 30585137 Problem Acquired absence of right leg below knee Z89.511 Active 073244433 Problem Cellulitis of left lower extremity L03.116 Active 015270430 Problem Acute pain of left shoulder M25.512 Active 14472138 Problem Mild intermittent asthma without complication J45.20 Active 265432115 Problem Reflux esophagitis K21.0 Active 211488172 Problem Obstructive sleep apnea syndrome G47.33 Active 53675074 Problem Hammertoe of left foot M20.42 Active 171055997 ALLERGIES No Information ENCOUNTERS Encounter Location Date Diagnosis [facility] [address] [facility] [id number], [place] [address] Dec, [facility] [address] [place] [address] [id number] Nov, [place] [id number] [place] [address] [id number] Oct, Anaphylactic reaction to bee sting, accidental or unintentional, initial encounter T63.441A ; Pain in right shoulder M25.511 and Other chronic pain G89.29 [place] [id number] [place] [address] [id number] Oct, Diabetes type 2, uncontrolled E11.65 [place] [id number] [place] [address] [id number] Oct, Diabetes type 2, uncontrolled E11.65 and Cellulitis of left lower extremity L03.116 [place] [id number] [place] [address] [phone] Oct, Phantom pain R52 [facility] ([facility] [id number] [place] [address] Sep, Onychomycosis B35.1 ; Impaired circulation of left leg I99.9 and DM neuro manif type II E11.[address] [place] [address] [id number] Sep, BMI 40.0-44.9, adult Z68.41 ; Skin ulcer of left lower leg, limited to breakdown of skin L97.921 ; Acute pain of left shoulder M25.512 ; DM neuro manif type II E11.49 ; Mild intermittent asthma without complication J45.20 and Phantom pain R52 [address] [id number] Sep, Phantom pain R52 [address] [place] [address] [id number] August, Phantom pain R52 [place] [id number] [place] [address] [id number] August, Acquired absence of right leg below knee Z89.[address] [place] [address] [id number] August, Acquired absence of right leg below knee Z89.511 [place] [address] [address] August, Diabetes type 2, uncontrolled E11.65 [place] [address] [place] [address] August, [place] [id number] [place] [address] August, [facility] [id number] [place] [address] [id number] August, BMI 40.0-44.9, adult Z68.41 ; 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 and Acquired absence of right leg below knee Z89.511 [place] [address] [id number] [place] [address] August, [address] [place] [address] [id number] Jul, Skin ulcer of left lower leg, limited to breakdown of skin L97.921 [address] [place] [address] [id number] Jul, [place] [id number] [place] [address] [id number] Jul, BMI 40.0-44.9, adult Z68.41 ; Skin ulcer of left lower leg, limited to breakdown of skin L97.921 and DM neuro manif type II E11.49 [place] [address] [address] Jul, [facility] [address] [place] [address] [id number] Jul, [address] [place] [address] [id number] Jul, [facility] [id number] [place] [address] [id number] Jun, Erectile dysfunction, unspecified erectile dysfunction type N52.9 [place] [address] [place] [address] Jun, [facility] [address] [id number] Jun, BMI 40.0-44.9, adult Z68.41 ; Diabetes type 2, uncontrolled E11.65 ; Phantom pain R52 ; Subluxation of right shoulder joint, sequela S43.001S and Erectile dysfunction, unspecified erectile dysfunction type N52.9 [place] [id number] [place] [address] Jun, DM neuro manif type II E11.49 ; Onychomycosis B35.1 and Hammertoe of left foot M20.42 [place] [id number] [place] [address] Jun, [address] [place] [address] [id number] Jun, DM neuro manif type II E11.[address] [id number] [phone] Jun, DM neuro manif type II E11.49 [address] [place] [address] [id number] May, DM neuro manif type II E11.49 ; Venous insufficiency (chronic) (peripheral) I87.2 ; 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 ; Essential hypertension I10 and Phantom pain R52 [facility] [address] [id number] Apr, Diabetes type 2, uncontrolled E11.65 ; Acquired absence of right leg below knee Z89.511 ; Essential hypertension I10 ; Reflux esophagitis K21.0 and Phantom pain R52 [place] [id number] [place] [address] [id number] Apr, BMI 40.0-44.9, adult Z68.41 and Wheelchair bound Z99.3 [facility] [address] [place] [address] [id number] Mar, [place] [id number] [place] [address] [id number] Mar, BMI 40.0-44.9, adult Z68.41 ; Diabetes type 2, uncontrolled E11.65 ; Mild intermittent asthma without complication J45.20 ; Phantom pain R52 ; Reflux esophagitis K21.0 and Essential hypertension I10 [facility] [id number] [place] [address] [id number] Feb, Phantom pain R52 [facility] [id number] [place] [address] [phone] Feb, Phantom pain R52 and Acute pain of left shoulder M25.512 [facility] [id number] [place] [address] [id number] Jan, Phantom pain R52 [facility] [id number] [place] [address] [phone] Jan, DM neuro manif type II E11.49 ; Cellulitis of left lower extremity L03.116 ; Obstructive sleep apnea syndrome G47.33 ; Thyroid disorder screen Z13.29 and Lipid screening Z13.220 [facility] [id number] [place] [address] [id number] Jan, [facility] [id number] [place] [address] [id number] Dec, DM neuro manif type II E11.49 ; Phantom pain R52 and Mild intermittent asthma without complication J45.20 [facility] [id number] [place] [address] [id number] Dec, Wound of left lower extremity, subsequent encounter S81.802D [facility] [id number] [place] [address] [id number] Nov, [facility] [address] [place] [address] Nov, [facility] [id number] [place] [address] [id number] Nov, DM neuro manif type II E11.49 ; Mild intermittent asthma without complication J45.20 ; Essential hypertension I10 and Phantom pain R52 [facility] [id number] [place] [address] [id number] Oct, Phantom pain R52 [facility] [id number] [id number] Sep, Phantom pain R52 ; DM neuro manif type II E11.49 and Essential hypertension I10 [facility] [id number] [place] [address] [id number] August, DM neuro manif type II E11.49 ; Phantom pain R52 and Essential hypertension I10 [facility] [id number] [place] [address] [id number] Jul, DM neuro manif type II E11.49 and Phantom pain R52 [facility] [id number] [place] [address] Jun, Onychomycosis B35.1 and DM neuro manif type II E11.49 [facility] [id number] [place] [address] [id number] Jun, DM neuro manif type II E11.49 ; Phantom pain R52 ; Essential hypertension I10 and Diabetes with neurological manifestations, type II or unspecified type, not stated as uncontrolled 250.60 [facility] [id number] [place] [address] [id number] Apr, DM neuro manif type II E11.49 ; Phantom pain R52 ; Essential hypertension I10 and Mild intermittent asthma without complication J45.20 [facility] [id number] [place] [address] [id number] Apr, Need for follow up care after discharge from healthcare facility Z92.89 and Wound of right lower extremity, subsequent encounter S81.801D [facility] [id number] [place] [address] [id number] Mar, Phantom pain R52 ; DM neuro manif type II E11.49 and Essential hypertension I10 [facility] [id number] [place] [address] [id number] Feb, DM neuro manif type II E11.49 ; Phantom pain R52 and Essential hypertension I10 [facility] [id number] [place] [address] [id number] Jan, Phantom pain R52 and DM neuro manif type II E11.49 [facility] [id number] [place] [address] [id number] Dec, [facility] [address] [id number] Dec, DM neuro manif type II E11.49 ; Phantom pain R52 ; Mild intermittent asthma without complication J45.20 and Essential hypertension I10 [facility] ([facility] [address], [place] [address] Dec, Onychomycosis B35.1 ; Xerosis of skin L85.3 and DM neuro manif type II E11.49 [facility] [id number] [place] [address] [id number] Nov, Acquired absence of right leg below knee Z89.511 [place] [id number] [place] [address] [id number] Nov, [place] [id number] [place] [address] [id number] Nov, [place] [id number] [place] [address] [id number] Sep, [place] [id number] [place] [address] [id number] Sep, Diabetes type 2, uncontrolled E11.65 ; Leg wound, left, initial encounter S81.802A and Erectile disorder due to medical condition in male N52.[address] [place] [address] [id number] Sep, [address] [place] [address] [id number] Jul, [place] [id number] [place] [address] [id number] Jul, [place] [id number] [place] [address] [id number] Jul, [place] [id number] [place] [address] [id number] Jul, 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 ; Varicose vein of leg I83.93 ; Diabetes type 2, uncontrolled E11.65 and Chronic pain G89.29 [place] [id number] [place] [address] [id number] Jul, [facility] [address] [id number] [phone] Jul, Diabetes with neurological manifestations, type II or unspecified type, not stated as uncontrolled 250.60 [facility] [id number] [place] [address] [id number] Jul, [facility] [id number] [place] [address] [id number] Jul, [facility] [id number] [place] [address] [id number] Jun, Diabetes type 2, uncontrolled E11.65 [facility] [id number] [place] [address] [id number] Jun, Pain in right knee M25.561 ; Pain in left knee M25.562 ; Other chronic pain G89.29 and Primary osteoarthritis of both knees M17.0 [facility] [address] [id number] [place] [address] [id number] Apr, Diabetes type 2, uncontrolled E11.65 ; Puncture wound of foot, left, initial encounter S91.332A and Encounter for immunization Z23 [facility] [id number] [id number] Apr, [facility] [id number] [place] [address] [id number] Apr, [facility] [id number], [place] [id number] Feb, Acquired absence of right leg below knee Z89.511 [facility] [id number], [place] [id number] Feb, Acquired absence of right leg below knee Z89.511 [facility] [id number], [place] [id number] Feb, Diabetes type 2, uncontrolled E11.65 and Acquired absence of right leg below knee Z89.511 [facility] [id number], [place] [id number] Jan, [facility] [id number], [place] [id number] Jan, [facility] [address] [id number], [place] [address] Jan, [facility] [id number], [place] [id number] Jan, [place] [id number], [place] [id number] Dec, [facility] [id number], [place] [phone] Dec, Diabetes with neurological manifestations, type II or unspecified type, not stated as uncontrolled 250.60 and Open wound of foot except toe(s) alone, without mention of complication 892.0 [facility] [id number], [place] [phone] Dec, [facility] [id number] [place] [address] [id number] Nov, [facility] [id number] [place] [address] [id number] Nov, Cellulitis of foot 682.7 [facility] [id number] [place] [address] [id number] Oct, [facility] [id number], [place] [phone] Oct, Corneal abrasion 918.1 [facility] [id number] [place] [address] [id number] Oct, [facility] [id number] [place] [address] [id number] Oct, [facility] [id number], [place] [id number] August, [facility] [address] [id number], [place] [id number] August, [facility] [address] [id number], [place] [phone] August, [facility] [id number], [place] [id number] August, [facility] [id number], [place] [phone] August, Diabetes mellitus without mention of complication, type II or unspecified type, not stated as uncontrolled 250.00 [facility] [address] [id number] [place] [address] Jul, [facility] [address] [id number] [place] [address] Jul, [facility] [address] [id number] [place] [address] Apr, [facility] [address] [id number] [place] [address] Apr, [facility] [address] [id number] [place] [address] Mar, [facility] [address] [id number] [place] [address] Mar, [facility] [address] [facility] [id number] [place] [address] Mar, [facility] [address] [id number], [place] [address] Mar, [facility] [address] [id number], [place] [address] Mar, [facility] [address] [id number], [place] [address] Mar, [facility] [address] [id number], [place] [id number] Mar, [facility] [address] [id number], [place] [address] Mar, [facility] [place] [facility] [address] [id number], [place] [address] Mar, [facility] [place] [facility] [address] [id number] [place] [address] Mar, [facility] [address] [facility] [id number], [place] [address] Mar, [facility] [place] [facility] [address] [id number], [place] [address] Mar, [facility] [place] [facility] [address] [facility] [id number] [place] [address] Mar, [facility] [address] [facility] [id number] [place] [id number] Mar, [facility] [place] [facility] [address] [facility] [id number] [place] [address] Jan, [facility] [address] [facility] [id number], [place] [id number] Jan, [facility] [place] [facility] [address] [facility] [id number] [place] [address] Jan, [facility] [place] [facility] [address] [facility] [id number] [place] [address] Jan, [facility] [place] [facility] [address] [facility] [id number] [place] [address] Jan, [facility] [address] [facility] [id number], [place] [id number] Jan, [facility] [place] [facility] [address] [facility] [id number], [place] [address] Dec, [facility] [address] [facility] [id number], [place] [id number] Nov, [facility] [place] [facility] [address] [facility] [id number], [place] [address] Nov, [facility] [address] [facility] [id number], [place] [id number] Oct, [facility] [place] [facility] [address] [facility] [id number], [place] [address] Oct, [facility] [address] [facility] [id number], [place] [id number] Oct, [facility] [place] [facility] [address] [facility] [id number] [place] [address] Oct, [facility] [place] [facility] [address] [facility] [id number], [place] [address] August, [facility] [place] [facility] [address] [facility] [id number], [place] [address] August, [facility] [place] [facility] [address] [facility] [id number], [place] [address] August, [facility] [place] [facility] [address] [facility] [id number], [place] [address] August, [facility] [address] [facility] [id number], [place] [id number] Jul, [facility] [place] [facility] [address] [facility] [id number], [place] [address] Jul, [facility] [address] [facility] [id number], [place] [id number] Jun, [facility] [place] [facility] [address] [id number], [place] [address] Jun, [facility] [id number], [place] [id number] Jun, [facility] [place] [facility] [address]00565100[place], [place] [address] Jun, [facility] [address] [id number], [place] [id number] Jun, [facility] [place] [facility] [address]00565100[place], [place] [address] Jun, [facility] [address] [facility] [id number], [place] [id number] Jun, [facility] [place] [facility] [address] [id number], [place] [address] Jun, [facility] [address] [facility] [id number], [place] [id number] May, [facility] [place] [facility] [address] [facility] [id number], [place] [address] May, [facility] [address] [facility] [id number], [place] [id number] May, [facility] [place] [facility] [address] [id number], [place] [address] May, [facility] [place] [facility] [address] [id number] [place] [address] May, [facility] [place] [facility] [address] [facility] [id number], [place] [address] May, [facility] [address] [id number] [place] [id number] May, [facility] [place] [facility] [address] [facility] [id number], [place] [address] May, [facility] [address] [id number] [place] [id number] May, [facility] [address] [facility] [id number], [place] [address] May, [facility] [address] [facility] [id number], [place] [address] Apr, [facility] [address] [id number], [place] [address] Apr, [facility] [address] [facility] [id number][place] [id number] Apr, [facility] [address] [facility] [id number], [place] [address] Apr, [facility] [address] [id number][place] [id number] Sep, [facility] [address] [facility] [id number], [place] [address] Sep, [facility] [address] [id number][place] [id number] Sep, [facility] [address] [id number][place] [id number] Sep, [facility] [address] [facility] [id number], [place] [address] Jun, [facility] [address] [id number][place] [id number] Nov, [facility] [address] [id number] [place] [id number] Nov, [facility] [address] [id number] [place] [id number] Nov, [facility] [address] [id number] [place] [id number] Nov, [facility] [address] [id number] [place] [id number] Nov, [facility] [address] [id number] [place] [id number] Nov, [facility] [address] [id number] [place] [id number] Nov, [facility] [address] [id number] [place] [id number] Nov, [facility] [address] [id number] [place] [id number] Nov, [facility] [facility] [address] [id number] [place] [id number] Sep, [facility] [address] [id number] [place] [id number] Sep, [facility] [address] [id number] [id number] Sep, [facility] [address] [id number][place] [id number] Sep, [facility] [address] [id number][place] [id number] August, [facility] [address] [id number][place] [id number] August, [facility] [address] [id number][place] [id number] August, [facility] [address] [id number][place] [id number] August, [facility] [id number], [place] [address] Sep, IMMUNIZATIONS No Known Immunizations SOCIAL HISTORY Never Assessed REASON FOR VISIT Change of location for MRI PLAN OF CARE VITAL SIGNS MEDICATIONS Unknown [...] 11/2014 Surgical History amputation right mid-calf/foot at [facility] 01/2015 Hospitalization History [facility] post op infection to right foot, amputations to mid-calf 01/2015 Hospitalization History [facility] In post-op 7 days, discharges with home health -02/2015 Hospitalization History [facility] ER visit for sore on right stump 04/2016 Hospitalization History [facility] wound on left lower leg, culture +for Strep G 12/2016
--- OUTSIDE RECORDS SUMMARY | 2018-10-31 17:42 | XMS REPORT ---
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 Active 796865986 Problem Other chronic pain G89.29 Active 30284242 Problem Diabetes type 2, uncontrolled E11.65 Active 404561553 Problem Anaphylactic reaction to bee sting, accidental or unintentional, initial encounter T63.441A Active 388444505 Problem Skin ulcer of left lower leg, limited to breakdown of skin L97.921 Active 95531069 Problem Erectile dysfunction, unspecified erectile dysfunction type N52.9 Active 695942648 Problem Varicose veins of left lower extremity with ulcer other part of lower leg I83.028 Active 29971793 Problem 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 Active 738130824 Problem Phantom pain R52 Active 594490656 Problem Essential hypertension I10 Active 70166074 Problem DM neuro manif type II E11.49 Active 99861001 Problem Acquired absence of right leg below knee Z89.511 Active 738648203 Problem Cellulitis of left lower extremity L03.116 Active 637216525 Problem Acute pain of left shoulder M25.512 Active 70297832 Problem Mild intermittent asthma without complication J45.20 Active 543724039 Problem Reflux esophagitis K21.0 Active 111821597 Problem Obstructive sleep apnea syndrome G47.33 Active 35370842 Problem Hammertoe of left foot M20.42 Active 252489292 ALLERGIES No Information ENCOUNTERS Encounter Location Date Diagnosis [facility] [address] [facility] [id number] [address] Dec, [facility] [id number] [place] [phone] Nov, [facility] [id number] [place] [address] [id number] Oct, Anaphylactic reaction to bee sting, accidental or unintentional, initial encounter T63.441A ; Pain in right shoulder M25.511 ; Other chronic pain G89.29 and BMI 40.0-44.9, adult Z68.41 [facility] [id number] [place] [address] [id number] Oct, Diabetes type 2, uncontrolled E11.65 [address] [place] [id number] [place] [address] [id number] Oct, Diabetes type 2, uncontrolled E11.65 and Cellulitis of left lower extremity L03.116 [address] [address] [id number] [place] [address] [id number] Oct, Phantom pain R52 [facility] [address]00565100[place] [address] Sep, Onychomycosis B35.1 ; Impaired circulation of left leg I99.9 and DM neuro manif type II E11.49 [address]00565100[place] [id number] Sep, BMI 40.0-44.9, adult Z68.41 ; Skin ulcer of left lower leg, limited to breakdown of skin L97.921 ; Acute pain of left shoulder M25.512 ; DM neuro manif type II E11.49 ; Mild intermittent asthma without complication J45.20 and Phantom pain R52 [facility] [address] [id number] [id number] Sep, Phantom pain R52 [facility] [id number] [place] [address] [id number] August, Phantom pain R52 [facility] [id number] [place] [address] [id number] August, Acquired absence of right leg below knee Z89.511 [facility] [address] [place] [address] [id number] August, Acquired absence of right leg below knee Z89.511 [address] [place] [id number] [place] [address] August, Diabetes type 2, uncontrolled E11.65 [place] [address] [place] [id number] [place] [address] August, [place] [id number] [place] [address] August, [facility] [address]005[address]100[place] [id number] August, BMI 40.0-44.9, adult Z68.41 ; 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 and Acquired absence of right leg below knee Z89.511 [place] [address] [id number] [address] August, [facility] [address] [place] [address] [id number] Jul, Skin ulcer of left lower leg, limited to breakdown of skin L97.921 [facility] [id number] [place] [address] [id number] Jul, [facility] [id number] [place] [address] [id number] Jul, BMI 40.0-44.9, adult Z68.41 ; Skin ulcer of left lower leg, limited to breakdown of skin L97.921 and DM neuro manif type II E11.49 [place] [address]00565100[place] [address] Jul, [facility] [address] [place] [address] [id number] Jul, [facility] [address] [place] [address] [id number] Jul, [facility] [address] [place] [address] [id number] Jun, Erectile dysfunction, unspecified erectile dysfunction type N52.9 [place] [address]00565100[place] [address] Jun, [address] [place] [address] [id number] Jun, BMI 40.0-44.9, adult Z68.41 ; Diabetes type 2, uncontrolled E11.65 ; Phantom pain R52 ; Subluxation of right shoulder joint, sequela S43.001S and Erectile dysfunction, unspecified erectile dysfunction type N52.9 [place] [id number] [place] [address] Jun, DM neuro manif type II E11.49 ; Onychomycosis B35.1 and Hammertoe of left foot M20.42 [place] [address] [place] [address] Jun, [address] [place] [address] [id number] Jun, DM neuro manif type II E11.[address] [id number] [phone] Jun, DM neuro manif type II E11.49 [address] [place] [address] [id number] May, DM neuro manif type II E11.49 ; Venous insufficiency (chronic) (peripheral) I87.2 ; 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 ; Essential hypertension I10 and Phantom pain R52 [address]00565100[place] [id number] Apr, Diabetes type 2, uncontrolled E11.65 ; Acquired absence of right leg below knee Z89.511 ; Essential hypertension I10 ; Reflux esophagitis K21.0 and Phantom pain R52 [address] [place] [address] [id number] Apr, BMI 40.0-44.9, adult Z68.41 and Wheelchair bound Z99.[address] [place] [address] [id number] Mar, [place] [id number] [place] [phone] Mar, BMI 40.0-44.9, adult Z68.41 ; Diabetes type 2, uncontrolled E11.65 ; Mild intermittent asthma without complication J45.20 ; Phantom pain R52 ; Reflux esophagitis K21.0 and Essential hypertension I10 [facility] [id number] [place] [address] [id number] Feb, Phantom pain R52 [facility] [id number] [place] [address] [id number] Feb, Phantom pain R52 and Acute pain of left shoulder M25.512 [id number] [place] [address] [id number] Jan, Phantom pain R52 [facility] [id number] [place] [address] [id number] Jan, DM neuro manif type II E11.49 ; Cellulitis of left lower extremity L03.116 ; Obstructive sleep apnea syndrome G47.33 ; Thyroid disorder screen Z13.29 and Lipid screening Z13.220 [facility] [id number] [place] [address] [id number] Jan, [place] [id number] [place] [address] [id number] Dec, DM neuro manif type II E11.49 ; Phantom pain R52 and Mild intermittent asthma without complication J45.20 [facility] [id number] [place] [address] [id number] Dec, Wound of left lower extremity, subsequent encounter S81.802D [facility] [id number] [place] [address] [id number] Nov, [facility] [id number] [place] [phone] Nov, [facility] [id number] [place] [address] [id number] Nov, DM neuro manif type II E11.49 ; Mild intermittent asthma without complication J45.20 ; Essential hypertension I10 and Phantom pain R52 [place] [id number] [place] [address] [id number] Oct, Phantom pain R52 [facility] [id number] [place] [address] [id number] Sep, Phantom pain R52 ; DM neuro manif type II E11.49 and Essential hypertension I10 [facility] [id number] [place] [address] [id number] August, DM neuro manif type II E11.49 ; Phantom pain R52 and Essential hypertension I10 [facility] [id number] [place] [address] [id number] Jul, DM neuro manif type II E11.49 and Phantom pain R52 [facility] [id number] [place] [address] Jun, Onychomycosis B35.1 and DM neuro manif type II E11.49 [facility] [id number] [place] [address] [id number] Jun, DM neuro manif type II E11.49 ; Phantom pain R52 ; Essential hypertension I10 and Diabetes with neurological manifestations, type II or unspecified type, not stated as uncontrolled 250.60 [facility] [id number] [place] [address] [id number] Apr, DM neuro manif type II E11.49 ; Phantom pain R52 ; Essential hypertension I10 and Mild intermittent asthma without complication J45.20 [facility] [id number] [place] [address] [id number] Apr, Need for follow up care after discharge from healthcare facility Z92.89 and Wound of right lower extremity, subsequent encounter S81.801D [facility] [id number] [place] [address] [id number] Mar, Phantom pain R52 ; DM neuro manif type II E11.49 and Essential hypertension I10 [facility] [id number] [place] [address] [id number] Feb, DM neuro manif type II E11.49 ; Phantom pain R52 and Essential hypertension I10 [facility] [id number] [place] [address] [id number] Jan, Phantom pain R52 and DM neuro manif type II E11.49 [facility] [id number] [place] [address] [id number] Dec, [place] [id number] [place] [address] [id number] Dec, DM neuro manif type II E11.49 ; Phantom pain R52 ; Mild intermittent asthma without complication J45.20 and Essential hypertension I10 [facility] [address] [id number] [address] Dec, Onychomycosis B35.1 ; Xerosis of skin L85.3 and DM neuro manif type II E11.49 [address] [id number] [place] [address] [id number] Nov, Acquired absence of right leg below knee Z89.511 [id number] [place] [address] [id number] Nov, [place] [id number] [place] [address] [id number] Nov, [place] [id number] [place] [address] [id number] Sep, [place] [id number] [place] [address] [id number] Sep, Diabetes type 2, uncontrolled E11.65 ; Leg wound, left, initial encounter S81.802A and Erectile disorder due to medical condition in male N52.[address] [place] [address] [id number] Sep, [place] [id number] [place] [address] [id number] Jul, [place] [id number] [place] [address] [id number] Jul, [place] [id number] [place] [address] [id number] Jul, [place] [id number] [place] [address] [id number] Jul, 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 ; Varicose vein of leg I83.93 ; Diabetes type 2, uncontrolled E11.65 and Chronic pain G89.29 [place] [id number] [id number] Jul, [facility] [id number] [place] [address] [id number] Jul, Diabetes with neurological manifestations, type II or unspecified type, not stated as uncontrolled 250.60 [facility] [id number] [place] [address] [id number] Jul, [facility] [id number] [place] [address] [id number] Jul, [facility] [id number] [place] [address] [id number] Jun, Diabetes type 2, uncontrolled E11.65 [place] [id number] [place] [address] [id number] Jun, Pain in right knee M25.561 ; Pain in left knee M25.562 ; Other chronic pain G89.29 and Primary osteoarthritis of both knees M17.0 [place] [id number] [place] [address] [id number] Apr, Diabetes type 2, uncontrolled E11.65 ; Puncture wound of foot, left, initial encounter S91.332A and Encounter for immunization Z23 [place] [id number] [place] [address] [id number] Apr, [facility] [id number] [place] [address] [id number] Apr, [facility] [id number] [place] [address] [id number] Feb, Acquired absence of right leg below knee Z89.511 [place] [id number] [place] [address] [id number] Feb, Acquired absence of right leg below knee Z89.511 [place] [id number] [place] [address] [id number] Feb, Diabetes type 2, uncontrolled E11.65 and Acquired absence of right leg below knee Z89.511 [facility] [id number] [place] [address] [id number] Jan, [place] [id number] [place] [address] [id number] Jan, [facility] [address] [id number] [address] Jan, [facility] [id number] [place] [address] [id number] Jan, [place] [id number] [phone] Dec, [facility] [id number] [place] [address] [id number] Dec, Diabetes with neurological manifestations, type II or unspecified type, not stated as uncontrolled 250.60 and Open wound of foot except toe(s) alone, without mention of complication 892.0 [facility] [id number] [place] [address] [id number] Dec, [facility] [id number] [place] [address] [id number] Nov, [facility] [id number] [place] [address] [id number] Nov, Cellulitis of foot 682.7 [facility] [id number] [place] [address] [id number] Oct, [facility] [id number] [place] [address] [id number] Oct, Corneal abrasion 918.1 [facility] [id number] [place] [address] [id number] Oct, [facility] [id number] [place] [address] [id number] Oct, [facility] [id number] [place] [address] [id number] August, [facility] [id number] [place] [address] [id number] August, [facility] [id number] [place] [address] [id number] August, [facility] [id number] [place] [address] [id number] August, [facility] [id number] [place] [address] [id number] August, Diabetes mellitus without mention of complication, type II or unspecified type, not stated as uncontrolled 250.00 [facility] [address] [id number] [address] 14 Jul, 2014 [facility] [address] [facility] [id number] [address] Jul, [facility] [address] [facility] [id number] [address] Apr, [facility] [address] [facility] [id number] [address] Apr, [facility] [address] [id number] [address] Mar, [facility] [address] [facility] [id number] [address] Mar, [facility] [address]100[place] [address] Mar, [facility] [address]100[place] [address] Mar, [facility] [address]100[place] [address] Mar, [facility] [address] [id number] [address] Mar, [place] [id number] [id number] Mar, [facility] [address] [id number] [address] Mar, [facility] [address] [id number] [address] Mar, [facility] [address] [id number] [address] Mar, [facility] [address] [id number] [address] Mar, [facility] [place] [facility] [address] [facility] [id number] [place] [address] Mar, [facility] [place] [facility] [address] [facility] [id number] [place] [address] Mar, [facility] [address] [facility] [id number] [phone] Mar, [facility] [place] [facility] [address] [facility] [id number] [place] [address] Jan, [facility] [address] [facility] [id number] [place] [id number] Jan, [facility] [place] [facility] [address] [facility] [id number] [address] Jan, [facility] [place] [facility] [address] [facility] [id number] [address] Jan, [facility] [place] [facility] [address] [facility] [id number] [address] Jan, [facility] [address] [facility] [id number] [place] [id number] Jan, [facility] [place] [facility] [address] [facility] [id number] [address] Dec, [facility] [address] [facility] [id number] [place] [id number] Nov, [facility] [place] [facility] [address] [facility] [id number] [address] Nov, [facility] [address] [facility] [id number] [place] [id number] Oct, [facility] [place] [facility] [address] [facility] [id number] [address] Oct, [facility] [address] [facility] [id number] [place] [phone] Oct, [facility] [place] [facility] [address] [facility] [id number] [place] [address] Oct, [facility] [place] [facility] [address] [facility] [id number] [address] August, [facility] [place] [facility] [address] [facility] [id number] [place] [address] August, [facility] [place] [facility] [address] [facility] [id number] [place] [address] August, [facility] [place] [facility] [address] [facility] [id number] [place] [address] August, [facility] [address] [facility] [id number] [place] [id number] Jul, [facility] [place] [facility] [address] [facility] [id number] [place] [address] Jul, [facility] [address] [facility] [id number] [place] [id number] Jun, [facility] [place] [facility] [address] [id number] [address] Jun, [facility] [address] [facility] [id number] [place] [phone] Jun, [facility] [place] [facility] [address] [facility] [id number] [address] Jun, [facility] [address] [facility] [id number] [place] [id number] Jun, [facility] [place] [facility] [address] [facility] [id number] [address] Jun, [facility] [address] [facility] [id number] [place] [id number] Jun, [facility] [place] [facility] [address] [facility] [id number] [address] Jun, [facility] [address] [facility] [id number] [place] [id number] May, [facility] [place] [facility] [address] [facility] [id number] [place] [address] May, [facility] [address] [facility] [id number] [place] [id number] May, [facility] [place] [facility] [address] [facility] [id number] [address] May, [facility] [place] [facility] [address] [facility] [id number] [address] May, [facility] [place] [facility] [address] [facility] [id number] [address] May, [facility] [address] [facility] [id number] [place] [id number] May, [facility] [place] [facility] [address] [facility] [id number] [address] May, [facility] [address] [facility] [id number] [place] [id number] May, [facility] [place] [facility] [id number] [address] May, [facility] [place] [facility] [id number] [address] Apr, [facility] [place] [facility] [id number] [address] Apr, [facility] [id number] [place] [id number] Apr, [facility] [place] [facility] [address] [id number] [address] Apr, [facility] [address] [id number] [place] [id number] Sep, [facility] [place] [facility] [id number] [address] 16 Sep, 2012 [facility] [address] [facility] [id number] [place] [id number] Sep, [facility] [address] [facility] [id number] [place] [id number] Sep, [facility] [place] [facility] [address] [facility] [id number] [address] Jun, [facility] [id number] [place] [id number] Nov, [facility] [address] [id number] [place] [id number] Nov, [facility] [address] [id number] [place] [id number] Nov, [facility] [address] [id number] [place] [id number] Nov, [facility] [address] [id number] [place], [place] [id number] Nov, [facility] [address] [id number] [place] [id number] Nov, [facility] [address] [id number] [place] [id number] Nov, [facility] [address] [id number] [place] [id number] Nov, [facility] [address] [id number] [place] [id number] Nov, [facility] [address] [id number] [place] [id number] Sep, [facility] [address] [id number] [place] [id number] Sep, [facility] [address] [id number] [place] [id number] Sep, [facility] [address] [id number] [place] [id number] Sep, [facility] [address] [id number] [place] [id number] August, [facility] [address] [id number] [place] [id number] August, [facility] [address] [id number] [place] [id number] August, [facility] [address] [id number] [place] [id number] August, [facility] [id number] [address] Sep, IMMUNIZATIONS No Known Immunizations SOCIAL HISTORY Never Assessed REASON FOR VISIT 1 mo f/u DM Ed PLAN OF CARE VITAL SIGNS MEDICATIONS Unknown [...] 11/2014 Surgical History amputation right mid-calf/foot at [facility] 01/2015 Hospitalization History [facility] post op infection to right foot, amputations to mid-calf 01/2015 Hospitalization History [facility] In post-op 7 days, discharges with home health -02/2015 Hospitalization History [facility] ER visit for sore on right stump 04/2016 Hospitalization History [facility] wound on left lower leg, culture +for Strep G 12/2016
--- OUTSIDE RECORDS SUMMARY | 2018-10-31 17:42 | XMS REPORT ---
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 Active 682921438 Problem Other chronic pain G89.29 Active 78027056 Problem Diabetes type 2, uncontrolled E11.65 Active 303117094 Problem Anaphylactic reaction to bee sting, accidental or unintentional, initial encounter T63.441A Active 156284746 Problem Skin ulcer of left lower leg, limited to breakdown of skin L97.921 Active 30819001 Problem Erectile dysfunction, unspecified erectile dysfunction type N52.9 Active 719460727 Problem Varicose veins of left lower extremity with ulcer other part of lower leg I83.028 Active 28895722 Problem 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 Active 307096688 Problem Phantom pain R52 Active 092239334 Problem Essential hypertension I10 Active 17937775 Problem DM neuro manif type II E11.49 Active 85254448 Problem Acquired absence of right leg below knee Z89.511 Active 878504129 Problem Cellulitis of left lower extremity L03.116 Active 498331543 Problem Acute pain of left shoulder M25.512 Active 96913374 Problem Mild intermittent asthma without complication J45.20 Active 622693002 Problem Reflux esophagitis K21.0 Active 371075618 Problem Obstructive sleep apnea syndrome G47.33 Active 45680931 Problem Hammertoe of left foot M20.42 Active 206034498 ALLERGIES No Information ENCOUNTERS Encounter Location Date Diagnosis [facility] [address] [facility] [id number] [address] Dec, [facility] [id number] [id number] Nov, [facility] [id number] [place] [address] [id number] Oct, Anaphylactic reaction to bee sting, accidental or unintentional, initial encounter T63.441A ; Pain in right shoulder M25.511 ; Other chronic pain G89.29 and BMI 40.0-44.9, adult Z68.41 [facility] [id number] [place] [address] [id number] Oct, Diabetes type 2, uncontrolled E11.65 [place] [id number] [place] [address] [id number] Oct, Diabetes type 2, uncontrolled E11.65 and Cellulitis of left lower extremity L03.116 [place] [id number] [place] [address] [id number] Oct, Phantom pain R52 [facility] [address]00565100[place] [address] Sep, Onychomycosis B35.1 ; Impaired circulation of left leg I99.9 and DM neuro manif type II E11.49 [address]65[place] [id number] Sep, BMI 40.0-44.9, adult Z68.41 ; Skin ulcer of left lower leg, limited to breakdown of skin L97.921 ; Acute pain of left shoulder M25.512 ; DM neuro manif type II E11.49 ; Mild intermittent asthma without complication J45.20 and Phantom pain R52 [facility] [address] [id number] [id number] Sep, Phantom pain R52 [facility] [id number] [place] [address] [id number] August, Phantom pain R52 [facility] [id number] [place] [address] [id number] August, Acquired absence of right leg below knee Z89.511 [facility] [address] [place] [address] [id number] August, Acquired absence of right leg below knee Z89.511 [place] [address] [place] [address] August, Diabetes type 2, uncontrolled E11.65 [place] [address] [place] [id number] [place] [address] August, [place] [address] [address] [id number] [place] [address] August, [facility] [address] [address] August, BMI 40.0-44.9, adult Z68.41 ; 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 and Acquired absence of right leg below knee Z89.511 [place] [address] [id number] [address] August, [facility] [address] [place] [address] [id number] Jul, Skin ulcer of left lower leg, limited to breakdown of skin L97.921 [facility] [id number] [place] [address] [id number] Jul, [facility] [id number] [place] [address] [id number] Jul, BMI 40.0-44.9, adult Z68.41 ; Skin ulcer of left lower leg, limited to breakdown of skin L97.921 and DM neuro manif type II E11.49 [place] [address]00565100[place], [place] [address] Jul, [facility] [address] [place] [address] [id number] Jul, [facility] [address] [place] [address] [id number] Jul, [facility] [address] [place] [address] [id number] Jun, Erectile dysfunction, unspecified erectile dysfunction type N52.9 [place] [address]00565100[place], [place] [address] Jun, [address] [place] [address] [id number] Jun, BMI 40.0-44.9, adult Z68.41 ; Diabetes type 2, uncontrolled E11.65 ; Phantom pain R52 ; Subluxation of right shoulder joint, sequela S43.001S and Erectile dysfunction, unspecified erectile dysfunction type N52.9 [place] [address] [address] [id number] [place] [address] Jun, DM neuro manif type II E11.49 ; Onychomycosis B35.1 and Hammertoe of left foot M20.42 [place] [address] [place] [address] Jun, [address] [place] [address] [id number] Jun, DM neuro manif type II E11.[address] [id number] [id number] Jun, DM neuro manif type II E11.49 [address] [place] [address] [id number] May, DM neuro manif type II E11.49 ; Venous insufficiency (chronic) (peripheral) I87.2 ; 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 ; Essential hypertension I10 and Phantom pain R52 [address] [id number] Apr, Diabetes type 2, uncontrolled E11.65 ; Acquired absence of right leg below knee Z89.511 ; Essential hypertension I10 ; Reflux esophagitis K21.0 and Phantom pain R52 [address] [place] [address] [id number] Apr, BMI 40.0-44.9, adult Z68.41 and Wheelchair bound Z99.3 [address] [place] [address] [id number] Mar, [place] [id number][place] [id number] Mar, BMI 40.0-44.9, adult Z68.41 ; Diabetes type 2, uncontrolled E11.65 ; Mild intermittent asthma without complication J45.20 ; Phantom pain R52 ; Reflux esophagitis K21.0 and Essential hypertension I10 [facility] [id number] [place] [address] [id number] Feb, Phantom pain R52 [facility] [id number] [place] [address] [id number] Feb, Phantom pain R52 and Acute pain of left shoulder M25.512 [place] [address] [place] [address] [id number] Jan, Phantom pain R52 [facility] [id number] [place] [address] [id number] Jan, DM neuro manif type II E11.49 ; Cellulitis of left lower extremity L03.116 ; Obstructive sleep apnea syndrome G47.33 ; Thyroid disorder screen Z13.29 and Lipid screening Z13.220 [facility] [id number] [place] [address] [id number] Jan, [place] [address] [place] [address] [id number] Dec, DM neuro manif type II E11.49 ; Phantom pain R52 and Mild intermittent asthma without complication J45.20 [facility] [id number] [place] [address] [id number] Dec, Wound of left lower extremity, subsequent encounter S81.802D [facility] [id number] [place] [address] [id number] Nov, [facility] [id number] [place] [address] Nov, [facility] [id number] [place] [address] [id number] Nov, DM neuro manif type II E11.49 ; Mild intermittent asthma without complication J45.20 ; Essential hypertension I10 and Phantom pain R52 [place] [address] [place] [address] [id number] Oct, Phantom pain R52 [facility] [id number] [place] [address] [id number] Sep, Phantom pain R52 ; DM neuro manif type II E11.49 and Essential hypertension I10 [facility] [id number] [place] [address] [id number] August, DM neuro manif type II E11.49 ; Phantom pain R52 and Essential hypertension I10 [facility] [id number] [place] [address] [id number] Jul, DM neuro manif type II E11.49 and Phantom pain R52 [facility] [id number] [place] [address] Jun, Onychomycosis B35.1 and DM neuro manif type II E11.49 [facility] [address] [place] [address] [id number] Jun, DM neuro manif type II E11.49 ; Phantom pain R52 ; Essential hypertension I10 and Diabetes with neurological manifestations, type II or unspecified type, not stated as uncontrolled 250.60 [facility] [address] [place] [address] [id number] Apr, DM neuro manif type II E11.49 ; Phantom pain R52 ; Essential hypertension I10 and Mild intermittent asthma without complication J45.20 [facility] [id number] [place] [address] [id number] Apr, Need for follow up care after discharge from healthcare facility Z92.89 and Wound of right lower extremity, subsequent encounter S81.801D [facility] [address] [place] [address] [id number] Mar, Phantom pain R52 ; DM neuro manif type II E11.49 and Essential hypertension I10 [facility] [id number] [place] [address] [id number] Feb, DM neuro manif type II E11.49 ; Phantom pain R52 and Essential hypertension I10 [facility] [id number] [place] [address] [id number] Jan, Phantom pain R52 and DM neuro manif type II E11.49 [facility] [id number] [place] [address] [id number] Dec, [place] [address] [place] [address] [id number] Dec, DM neuro manif type II E11.49 ; Phantom pain R52 ; Mild intermittent asthma without complication J45.20 and Essential hypertension I10 [facility] [address] [id number] [address] Dec, Onychomycosis B35.1 ; Xerosis of skin L85.3 and DM neuro manif type II E11.49 [place] [address] [place] [address] [id number] Nov, Acquired absence of right leg below knee Z89.511 [place] [address] [place] [address] [id number] Nov, [place] [address] [place] [address] [id number] Nov, [place] [address] [place] [address] [id number] Sep, [place] [address] [place] [address] [id number] Sep, Diabetes type 2, uncontrolled E11.65 ; Leg wound, left, initial encounter S81.802A and Erectile disorder due to medical condition in male N52.1 [address] [place] [address] [id number] Sep, [place] [address] [place] [address] [id number] Jul, [place] [address] [place] [address] [id number] Jul, [place] [address] [place] [address] [id number] Jul, [place] [address] [place] [address] [id number] Jul, 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 ; Varicose vein of leg I83.93 ; Diabetes type 2, uncontrolled E11.65 and Chronic pain G89.29 [place] [id number] Jul, [facility] [id number] [place] [address] [id number] Jul, Diabetes with neurological manifestations, type II or unspecified type, not stated as uncontrolled 250.60 [facility] [place] [id number] [place] [address] [id number] Jul, [facility] [id number] [place] [address] [id number] Jul, [facility] [address] [place] [address] [id number] Jun, Diabetes type 2, uncontrolled E11.65 [place] [address] [address] [place] [address] [id number] Jun, Pain in right knee M25.561 ; Pain in left knee M25.562 ; Other chronic pain G89.29 and Primary osteoarthritis of both knees M17.0 [place] [address] [place] [address] [id number] Apr, Diabetes type 2, uncontrolled E11.65 ; Puncture wound of foot, left, initial encounter S91.332A and Encounter for immunization Z23 [place] [address] [address] [address] [place] [address] [id number] Apr, [facility] [address] [place] [address] [id number] Apr, [facility] [id number] [place] [address] [id number] Feb, Acquired absence of right leg below knee Z89.511 [place] [address] [address] [place] [address] [id number] Feb, Acquired absence of right leg below knee Z89.511 [place] [address] [address] [place] [address] [id number] Feb, Diabetes type 2, uncontrolled E11.65 and Acquired absence of right leg below knee Z89.511 [facility] [id number] [place] [address] [id number] Jan, [place] [id number] [place] [address] [id number] Jan, [facility] [id number] [address] Jan, [facility] [id number] [place] [address] [id number] Jan, [place] [id number] [id number] Dec, [facility] [id number] [place] [address] [id number] Dec, Diabetes with neurological manifestations, type II or unspecified type, not stated as uncontrolled 250.60 and Open wound of foot except toe(s) alone, without mention of complication 892.0 [facility] [id number] [place] [address] [id number] Dec, [facility] [address] [place] [address] [id number] Nov, [facility] [address] [address] [place] [address] [id number] Nov, Cellulitis of foot 682.7 [facility] [address] [address] [place] [address] [id number] Oct, [facility] [address] [place] [address] [id number] Oct, Corneal abrasion 918.1 [facility] [id number] [place] [address] [id number] Oct, [facility] [address] [place] [address] [id number] Oct, [facility] [id number] [place] [address] [id number] August, [facility] [id number] [place] [address] [id number] August, [facility] [id number] [place] [address] [id number] August, [facility] [id number] [place] [address] [id number] August, [facility] [address] [address] [place] [address] [id number] August, Diabetes mellitus without mention of complication, type II or unspecified type, not stated as uncontrolled 250.00 [facility] [address] [id number], [place] [address] 14 Jul, 2014 [facility] [address] [facility] [id number], [place] [address] Jul, [facility] [address] [facility] [id number], [place] [address] Apr, [facility] [address] [facility] [id number], [place] [address] Apr, [facility] [address] [id number] [address] Mar, [facility] [address] [facility] [id number] [address] Mar, [facility] [address]100[place], [place] [address] Mar, [facility] [address], [place] [address] Mar, [facility] [address], [place] [address] Mar, [facility] [address] [id number], [place] [address] Mar, [place] [id number] [id number] Mar, [facility] [address] [id number] [address] Mar, [facility] [address] [id number], [place] [address] Mar, [facility] [address] [id number], [place] [address] Mar, [facility] [address] [id number] [address] Mar, [facility] [place] [facility] [address] [facility] [id number] [place] [address] Mar, [facility] [place] [facility] [address] [facility] [id number] [place] [address] Mar, [facility] [place] [address] [facility] [id number][place] [id number] Mar, [facility] [place] [facility] [address] [facility] [id number] [address] Jan, [facility] [address] [facility] [id number][place] [id number] Jan, [facility] [place] [facility] [address] [facility] [id number] [address] Jan, [facility] [place] [facility] [address] [facility] [id number], [place] [address] Jan, [facility] [place] [facility] [address] [facility] [id number] [address] Jan, [facility] [address] [facility] [id number][place] [id number] Jan, [facility] [place] [facility] [address] [facility] [id number] [address] Dec, [facility] [address] [facility] [id number][place] [id number] Nov, [facility] [place] [facility] [address] [facility] [id number], [place] [address] Nov, [facility] [address] [facility] [id number], [place] [address] Oct, [facility] [place] [facility] [address] [facility] [id number], [place] [address] Oct, [facility] [place] [address] [facility] [id number][place] [id number] Oct, [facility] [place] [facility] [address] [facility] [id number], [place] [address] Oct, [facility] [place] [facility] [address] [facility] [id number], [place] [address] August, [facility] [place] [facility] [address] [facility] [id number] [place] [address] August, [facility] [place] [facility] [address] [facility] [id number] [place] [address] August, [facility] [place] [facility] [address] [facility] [id number] [place] [address] August, [facility] [address] [facility] [id number], [place] [id number] Jul, [facility] [place] [facility] [address] [facility] [id number] [place] [address] Jul, [facility] [address] [facility] [id number], [place] [address] Jun, [facility] [place] [facility] [address] [id number] [address] Jun, [facility] [address] [facility] [id number][place] [address] Jun, [facility] [place] [facility] [address] [facility] [id number][place] [address] Jun, [facility] [address] [facility] [id number][place] [id number] Jun, [facility] [place] [facility] [address] [facility] [id number], [place] [address] Jun, [facility] [address] [facility] [id number], [place] [id number] Jun, [facility] [place] [facility] [address] [facility] [id number], [place] [address] Jun, [facility] [address] [facility] [id number], [place] [id number] May, [facility] [place] [facility] [address] [facility] [id number] [place] [address] May, [facility] [address] [facility] [id number] [place] [id number] May, [facility] [place] [facility] [address] [facility] [id number][place] [address] May, [facility] [place] [facility] [address] [facility] [id number][place] [address] May, [facility] [place] [facility] [address] [facility] [id number] [address] May, [facility] [address] [facility] [id number][place] [id number] May, [facility] [address] [facility] [id number][place] [address] May, [facility] [address] [facility] [id number][place] [id number] May, [facility] [id number] [address] May, [facility] [id number], [place] [address] Apr, [facility] [id number], [place] [address] Apr, [facility] [id number][place] [id number] Apr, [facility] [address] [id number], [place] [address] Apr, [facility] [address] [id number][place] [id number] Sep, [facility] [id number], [place] [address] 16 Sep, 2012 [facility] [address] [facility] [id number][place] [id number] Sep, [facility] [address] [facility] [id number][place] [id number] Sep, [facility] [address] [facility] [id number], [place] [address] Jun, [facility] [id number][place] [id number] Nov, [facility] [address] [id number] [place] [id number] Nov, [facility] [address] [id number] [place] [id number] Nov, [facility] [address] [id number] [place] [id number] Nov, [facility] [address] [id number] [place] [id number] Nov, [facility] [address] [id number] [place] [id number] Nov, [facility] [address] [id number] [place] [id number] Nov, [facility] [address] [id number] [place] [id number] Nov, [facility] [address] [id number] [place] [id number] Nov, [facility] [address] [id number] [place] [id number] Sep, [facility] [address] [id number] [place], [place] [id number] Sep, [facility] [address] [id number] [place] [id number] Sep, [facility] [address] [id number] [id number] Sep, [facility] [address] [id number][place] [id number] August, [facility] [address] [id number][place] [id number] August, [facility] [address] [id number][place] [id number] August, [facility] [address] [id number][place] [id number] August, [facility] [id number] [address] Sep, IMMUNIZATIONS No Known Immunizations SOCIAL HISTORY Never Assessed REASON FOR VISIT Order clarification PLAN OF CARE VITAL SIGNS MEDICATIONS Unknown [...] 11/2014 Surgical History amputation right mid-calf/foot at [facility] 01/2015 Hospitalization History [facility] post op infection to right foot, amputations to mid-calf 01/2015 Hospitalization History [facility] post-op 7 days, discharges with home health -02/2015 Hospitalization History [facility] ER visit for sore on right stump 04/2016 Hospitalization History [facility] wound on left lower leg, culture +for Strep G 12/2016
--- OUTSIDE RECORDS SUMMARY | 2018-10-31 17:43 | XMS REPORT ---
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 Active 005095731 Problem Venous insufficiency (chronic) (peripheral) I87.2 Active 82274603 Problem 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 Active 510278110 Problem Skin ulcer of left lower leg, limited to breakdown of skin L97.921 Active 04683370 Problem Erectile dysfunction, unspecified erectile dysfunction type N52.9 Active 554072209 Problem DM neuro manif type II E11.49 Active 32396966 Problem Acquired absence of right leg below knee Z89.511 Active 920955264 Problem Diabetes type 2, uncontrolled E11.65 Active 697836794 Problem Mild intermittent asthma without complication J45.20 Active 558755102 Problem Obstructive sleep apnea syndrome G47.33 Active 29319287 Problem Phantom pain R52 Active 715589648 Problem Cellulitis of left lower extremity L03.116 Active 283683750 Problem Essential hypertension I10 Active 61931909 Problem Acute pain of left shoulder M25.512 Active 63248954 ALLERGIES Substance Reaction Event Type Date Status Victoza vomiting Drug Allergy Jun, Active Lopid vomiting Drug Allergy Jun, Active Cleocin vomiting Drug Allergy Jun, Active Cephalexin rash Drug Allergy Jun, Active ENCOUNTERS Encounter Location Date Diagnosis [facility] [id number] [place] [address] Dec, [facility] [id number] [place] [address] [id number] Nov, [facility] [id number] [place] [address] [id number] Oct, [facility] [id number] [place] [address] [id number] Oct, Diabetes type 2, uncontrolled E11.65 [facility] [address] [id number] Oct, Diabetes type 2, uncontrolled E11.65 and Cellulitis of left lower extremity L03.[address] [id number] Oct, Phantom pain R52 [place] [address] [address] Sep, Onychomycosis B35.1 ; Impaired circulation of left leg I99.9 and DM neuro manif type II E11.49 [id number] [place] [address] [id number] Sep, BMI 40.0-44.9, adult Z68.41 ; Skin ulcer of left lower leg, limited to breakdown of skin L97.921 ; Acute pain of left shoulder M25.512 ; DM neuro manif type II E11.49 ; Mild intermittent asthma without complication J45.20 and Phantom pain R52 [id number] [place] [address] [id number] Sep, Phantom pain R52 [facility] [id number] [place] [address] [id number] August, Phantom pain R52 [id number] [place] [address] [id number] August, Acquired absence of right leg below knee Z89.511 [id number] [place] [address] [id number] August, Acquired absence of right leg below knee Z89.511 [place] [address] [address] August, Diabetes type 2, uncontrolled E11.65 [place] [address] [address] August, [place] [id number] [place] [address] August, [facility] [id number] [place] [address] [id number] August, BMI 40.0-44.9, adult Z68.41 ; 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 and Acquired absence of right leg below knee Z89.511 [address] [address] [address] [id number] [place] [address] August, [facility] [address] [place] [address] [id number] Jul, Skin ulcer of left lower leg, limited to breakdown of skin L97.921 [facility] [id number] [place] [address] [id number] Jul, [address] [place] [id number] [place] [address] [id number] Jul, BMI 40.0-44.9, adult Z68.41 ; Skin ulcer of left lower leg, limited to breakdown of skin L97.921 and DM neuro manif type II E11.49 [place] [address] [place] [address] Jul, [facility] [id number] [place] [address] [id number] Jul, [facility] [id number] [place] [address] [id number] Jul, [facility] [id number] [place] [address] [id number] Jun, Erectile dysfunction, unspecified erectile dysfunction type N52.9 [place] [address] [place] [address] Jun, [facility] [id number] [place] [address] [id number] Jun, BMI 40.0-44.9, adult Z68.41 ; Diabetes type 2, uncontrolled E11.65 ; Phantom pain R52 ; Subluxation of right shoulder joint, sequela S43.001S and Erectile dysfunction, unspecified erectile dysfunction type N52.9 [facility] [address], [place] [address] Jun, DM neuro manif type II E11.49 ; Onychomycosis B35.1 and Hammertoe of left foot M20.42 [facility] [address], [place] [address] Jun, [facility] [address] [place] [address] [id number] Jun, DM neuro manif type II E11.49 [place] [facility] [id number] [phone] Jun, DM neuro manif type II E11.49 [address] [id number] May, DM neuro manif type II E11.49 ; Venous insufficiency (chronic) (peripheral) I87.2 ; 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 ; Essential hypertension I10 and Phantom pain R52 [address] [id number] Apr, Diabetes type 2, uncontrolled E11.65 ; Acquired absence of right leg below knee Z89.511 ; Essential hypertension I10 ; Reflux esophagitis K21.0 and Phantom pain R52 [address] [place] [address] [id number] Apr, BMI 40.0-44.9, adult Z68.41 and Wheelchair bound Z99.3 [address] [place] [address] [id number] Mar, [id number] [place] [address] [id number] Mar, BMI 40.0-44.9, adult Z68.41 ; Diabetes type 2, uncontrolled E11.65 ; Mild intermittent asthma without complication J45.20 ; Phantom pain R52 ; Reflux esophagitis K21.0 and Essential hypertension I10 [facility] [id number] [place] [address] [id number] Feb, Phantom pain R52 [facility] [id number] [place] [address] [id number] Feb, Phantom pain R52 and Acute pain of left shoulder M25.512 [facility] [address] [id number] Jan, Phantom pain R52 [facility] [id number] [place] [address] [id number] Jan, DM neuro manif type II E11.49 ; Cellulitis of left lower extremity L03.116 ; Obstructive sleep apnea syndrome G47.33 ; Thyroid disorder screen Z13.29 and Lipid screening Z13.220 [facility] [id number] [place] [address] [id number] Jan, [facility] [address] [id number] Dec, DM neuro manif type II E11.49 ; Phantom pain R52 and Mild intermittent asthma without complication J45.20 [facility] [id number] [place] [address] [id number] Dec, Wound of left lower extremity, subsequent encounter S81.802D [facility] [id number] [place] [address] [id number] Nov, [facility] [id number] [place] [address] Nov, [facility] [id number] [place] [address] [id number] Nov, DM neuro manif type II E11.49 ; Mild intermittent asthma without complication J45.20 ; Essential hypertension I10 and Phantom pain R52 [facility] [id number] [place] [address] [id number] Oct, Phantom pain R52 [facility] [id number] [place] [address] [id number] Sep, Phantom pain R52 ; DM neuro manif type II E11.49 and Essential hypertension I10 [facility] [id number] [id number] August, DM neuro manif type II E11.49 ; Phantom pain R52 and Essential hypertension I10 [facility] [id number] [place] [address] [id number] Jul, DM neuro manif type II E11.49 and Phantom pain R52 [facility] [id number] [address] Jun, Onychomycosis B35.1 and DM neuro manif type II E11.49 [facility] [id number] [place] [address] [id number] Jun, DM neuro manif type II E11.49 ; Phantom pain R52 ; Essential hypertension I10 and Diabetes with neurological manifestations, type II or unspecified type, not stated as uncontrolled 250.60 [facility] [id number] [place] [address] [id number] Apr, DM neuro manif type II E11.49 ; Phantom pain R52 ; Essential hypertension I10 and Mild intermittent asthma without complication J45.20 [facility] [id number] [place] [address] [id number] Apr, Need for follow up care after discharge from healthcare facility Z92.89 and Wound of right lower extremity, subsequent encounter S81.801D [facility] [id number] [id number] Mar, Phantom pain R52 ; DM neuro manif type II E11.49 and Essential hypertension I10 [facility] [id number] [place] [address] [id number] Feb, DM neuro manif type II E11.49 ; Phantom pain R52 and Essential hypertension I10 [facility] [id number] [place] [address] [id number] Jan, Phantom pain R52 and DM neuro manif type II E11.49 [facility] [id number] [id number] Dec, [facility] [address] [place] [address] [id number] Dec, DM neuro manif type II E11.49 ; Phantom pain R52 ; Mild intermittent asthma without complication J45.20 and Essential hypertension I10 [facility] [id number], [place] [address] Dec, Onychomycosis B35.1 ; Xerosis of skin L85.3 and DM neuro manif type II E11.49 [address] [place] [address] [id number] Nov, Acquired absence of right leg below knee Z89.511 [address] [place] [address] [id number] Nov, [address] [place] [place] [address] [id number] Nov, [address] [place] [place] [address] [id number] Sep, [address] [place] [place] [address] [id number] Sep, Diabetes type 2, uncontrolled E11.65 ; Leg wound, left, initial encounter S81.802A and Erectile disorder due to medical condition in male N52.1 [address] [place] [place] [address] [id number] Sep, [address] [place] [place] [address] [id number] Jul, [address] [place] [address] [id number] Jul, [address] [place] [place] [address] [id number] Jul, [address] [place] [address] [id number] Jul, 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 ; Varicose vein of leg I83.93 ; Diabetes type 2, uncontrolled E11.65 and Chronic pain G89.29 [address] [place] [address] [id number] Jul, [address] [place] [address] [id number] Jul, Diabetes with neurological manifestations, type II or unspecified type, not stated as uncontrolled 250.60 [facility] [address] [place] [address] [id number] Jul, [address] [place] [place] [address] [id number] Jul, [address] [place] [address] [id number] Jun, Diabetes type 2, uncontrolled E11.65 [address] [place] [address] [id number] Jun, Pain in right knee M25.561 ; Pain in left knee M25.562 ; Other chronic pain G89.29 and Primary osteoarthritis of both knees M17.0 [address] [place] [address] [id number] Apr, Diabetes type 2, uncontrolled E11.65 ; Puncture wound of foot, left, initial encounter S91.332A and Encounter for immunization Z23 [address] [place] [address] [place] [address] [id number] Apr, [address] [place] [place] [address] [id number] Apr, [address] [place] [place] [address] [id number] Feb, Acquired absence of right leg below knee Z89.511 [address] [place] [address] [id number] Feb, Acquired absence of right leg below knee Z89.511 [address] [place] [address] [id number] Feb, Diabetes type 2, uncontrolled E11.65 and Acquired absence of right leg below knee Z89.511 [address] [place] [address] [id number] Jan, [address] [place] [address] [id number] Jan, [facility] [address], [place] [address] Jan, [address] [id number] Jan, [address] [place] [id number][place] [phone] Dec, [facility] [address] [place] [address] [id number] Dec, Diabetes with neurological manifestations, type II or unspecified type, not stated as uncontrolled 250.60 and Open wound of foot except toe(s) alone, without mention of complication 892.0 [facility] [address] [place] [address] [id number] Dec, [facility] [address] [place] [address] [id number] Nov, [facility] [address] [place] [address] [id number] Nov, Cellulitis of foot 682.7 [address] [place] [address] [id number] Oct, [facility] [address] [place] [address] [id number] Oct, Corneal abrasion 918.1 [facility] [id number] [place] [address] [id number] Oct, [facility] [address] [place] [address] [id number] Oct, [facility] [address] [place] [address] [id number] August, [facility] [id number] [place] [address] [id number] August, [facility] [id number] [place] [address] [id number] August, [facility] [id number] [place] [address] [id number] August, [place] [address] [place] [address] [id number] August, Diabetes mellitus without mention of complication, type II or unspecified type, not stated as uncontrolled 250.00 [facility] [id number] [place] [phone] 14 Jul, 2014 [facility] [address] [id number] [place] [address] Jul, [facility] [address] [id number] [place] [address] Apr, [facility] [address] [id number] [place] [address] Apr, [facility] [address] [id number] [place] [address] Mar, [facility] [address] [id number] [place] [address] Mar, [facility] [address] [id number] [place] [address] Mar, [facility] [address] [id number] [place] [address] Mar, [facility] [address] [id number] [place] [address] Mar, [facility] [address] [id number] [place] [address] Mar, [facility] [address] [id number] [id number] Mar, [facility] [address] [id number] [place] [address] Mar, [facility] [place] [facility] [address] [id number], [place] [address] Mar, [facility] [place] [facility] [address] [id number] [place] [address] Mar, [facility] [place] [facility] [address] [id number] [place] [address] Mar, [facility] [place] [facility] [address] [id number] [place] [address] Mar, [facility] [address] [id number][place] [address] Mar, [facility] [address] [id number] [place] [id number] Mar, [facility] [place] [facility] [address] [id number], [place] [address] Jan, [facility] [address] [id number] [place] [id number] Jan, [facility] [place] [facility] [address] [id number], [place] [address] Jan, [facility] [place] [facility] [address] [id number] [place] [address] Jan, [facility] [place] [facility] [address] [facility] [id number] [address] Jan, [facility] [address] [facility] [id number] [place] [id number] Jan, [facility] [place] [facility] [address] [facility] [id number], [place] [address] Dec, [facility] [address] [id number] [place] [id number] Nov, [facility] [place] [facility] [address] [facility] [id number], [place] [address] Nov, [facility] [address] [id number] [place] [id number] Oct, [facility] [place] [facility] [address] [facility] [id number] [address] Oct, [facility] [address] [id number][place] [id number] Oct, [facility] [place] [facility] [address] [facility] [id number][place] [address] Oct, [facility] [place] [facility] [address] [facility] [id number] [address] August, [facility] [place] [facility] [address] [facility] [id number][place] [address] August, [facility] [place] [facility] [address] [id number] [place] [address] August, [facility] [place] [facility] [address] [facility] [id number] [place] [address] August, [facility] [place] [address] [facility] [id number] [place] [id number] Jul, [facility] [place] [facility] [address] [facility] [id number] [place] [address] Jul, [facility] [place] [address] [facility] [id number] [place] [id number] Jun, [facility] [place] [facility] [address] [facility] [id number], [place] [address] Jun, [facility] [place] [address] [facility] [id number] [place] [id number] Jun, [facility] [address] [facility] [id number][place] [address] Jun, [facility] [place] [address] [facility] [id number] [place] [id number] Jun, [facility] [place] [facility] [address] [facility] [id number], [place] [address] Jun, [facility] [place] [address] [facility] [id number] [place] [id number] Jun, [facility] [place] [facility] [address] [facility] [id number][place] [address] Jun, [facility] [place] [address] [facility] [id number], [place] [id number] May, [facility] [place] [facility] [address] [facility] [id number] [place] [address] May, [facility] [place] [address] [facility] [id number] [place] [id number] May, [facility] [place] [facility] [address] [facility] [id number][place] [address] May, [facility] [place] [facility] [address] [facility] [id number][place] [address] May, [facility] [address] [facility] [id number][place] [address] May, [facility] [address] [id number] [place] [id number] May, [facility] [address] [facility] [id number][place] [address] May, [facility] [address] [id number][place] [id number] May, [facility] [place] [facility] [address] [facility] [id number], [place] [address] May, [facility] [place] [facility] [address] [facility] [id number], [place] [address] Apr, [facility] [address] [facility] [id number][place] [address] Apr, [facility] [address] [id number], [place] [id number] Apr, [facility] [address] [facility] [id number][place] [address] Apr, [facility] [address] [id number], [place] [id number] Sep, [facility] [place] [facility] [address] [facility] [id number][place] [address] Sep, [facility] [address] [id number], [place] [id number] Sep, [facility] [address] [id number], [place] [address] Sep, [facility] [place] [facility] [address] [facility] [id number][place] [address] Jun, [facility] [address] [id number] [place] [id number] Nov, [facility] [address] [id number][place] [id number] Nov, [facility] [address] [id number] [place] [id number] Nov, [facility] [address] [id number] [place] [id number] Nov, [facility] [address] [id number] [place] [id number] Nov, [facility] [address] [id number] [place] [id number] Nov, [facility] [address] [id number] [place] [id number] Nov, [facility] [address] [id number] [place] [id number] Nov, [facility] [address] [id number] [place] [id number] Nov, [facility] [address] [id number] [place] [id number] Sep, [facility] [address] [id number] [place] [id number] Sep, [facility] [address] [id number] [place] [id number] Sep, [facility] [address] [id number] [place] [id number] Sep, [facility] [address] [id number] [place] [id number] August, [facility] [address] [id number] [place] [id number] August, [facility] [address] [id number] [place] [id number] August, [facility] [address] [id number] [place] [id number] August, [facility] [id number] [address] Sep, IMMUNIZATIONS No Known Immunizations SOCIAL HISTORY Never Assessed REASON FOR VISIT 3 month diabetic follow up. [place] PLAN OF CARE Activity Details Follow Up prn Reason:after mri VITAL SIGNS Height 72 in 2017-07-07 Weight 319.8 lbs 2017-07-07 Temperature 98.2 degrees Fahrenheit 2017-07-07 Heart Rate 86 bpm 2017-07-07 Respiratory Rate 16 2017-07-07 BMI 43.37 kg/m2 2017-07-07 Blood pressure systolic 128 mmHg 2017-07-07 Blood pressure diastolic 76 mmHg 2017-07-07 MEDICATIONS Medication Instructions Dosage Frequency Start Date End Date Duration Status Sildenafil Citrate 50 mg Orally Once a day 1 tablet as needed 24h Jun, Active Singulair 10 mg Orally Once a day 1 tablet in the evening 24h Active Ibuprofen 800 MG Orally Three times a day 1 tablet with food or milk as needed 8h Feb, Active Blood Pressure Kit ... as directed Mar, Active Walker - as directed Apr, Active Gabapentin 600 MG Orally Three times a day 1 capsule 1 tab qhs x 5 d then bid x 5 d then tid 8h Dec, Active ProAir HFA 108 (90 Base) MCG/ACT Inhalation every 4-6 hours as needed 2 puffs Jul, Active Metformin HCl 1000 MG Orally Twice a day 1 tablet with meals 12h Active Gemfibrozil 600 MG Orally twice a day take 1 tablet 12h Active BD Pen Needle Nedra U/F 32G X 4 MM as directed 8h Sep, Active NovoLog 100 UNIT/ML Subcutaneous 3 times a day, E11.65 60 units Jun, Active Hydrocodone-Acetaminophen 7.5-325 MG Orally every 6 hrs PRN must last 1 m 1 tablet as needed Jun, Active Tresiba FlexTouch 200 UNIT/ML Subcutaneous at bedtime 150 units Sep, Active Omeprazole 40 MG Orally Once a day 1 capsule 24h 30 days Active Wheelchair - as directed Apr, lifetime Active BD Insulin Syringe 30G X 1/2 subcutaneously 5 times daily as directed Dec, Active Farxiga 5 mg Orally Once a day in the morning 1 tablet Jun, Active Pioglitazone HCl 30 MG DX- E11.65 Once a day 1 tablet 24h Jun, Active Potassium Chloride 20 MEQ Orally Once a day 1 tablet 24h Dec, Active Zoloft 50 mg Orally Once a day 1 tablet 24h Active Leg Prosthesis N/A DON: 99 as directed Right below knee definitive Nov, Active Diovan HCT 160-12.5 MG Orally Once a day take 1 tablet 24h Active Lancets - as directed Mar, Active Blood Glucose Test Strip Test Strips as directed 8h Dec, 30 days Active Amlodipine Besylate 10 mg Orally Once a day 1 tablet 24h Active RESULTS Name Result Date Reference Range A1C (IN HOUSE) 2017-07-07 A1C IN HOUSE 11 4.3 - 5.6 % Previous A1c 14 Lot [id number] Exp date 05/01 Xray : Shoulder, Right 2 view 2017-07-12 MRI : Shoulder, Right 2017-09-12 PROCEDURES Procedure Date Ordered Result Body Site GLYCATED HEMOGLOBIN TEST July 07, 2017 INSTRUCTIONS MEDICATIONS ADMINISTERED No Known Medications [...] Surgical History amputation right mid-calf/foot at [facility] 01/2015 Hospitalization History [facility] post op infection to right foot, amputations to mid-calf 01/2015 Hospitalization History [facility] In post-op 7 days, discharges with home health -02/2015 Hospitalization History [facility] visit for sore on right stump 04/2016 [facility]ization History [facility] wound on left lower leg, culture +for Strep G 12/2016
--- OUTSIDE RECORDS SUMMARY | 2018-10-31 17:43 | XMS REPORT ---
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 Active 064231614 Problem Venous insufficiency (chronic) (peripheral) I87.2 Active 59081528 Problem 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 Active 500205998 Problem Skin ulcer of left lower leg, limited to breakdown of skin L97.921 Active 63285364 Problem Erectile dysfunction, unspecified erectile dysfunction type N52.9 Active 440312535 Problem DM neuro manif type II E11.49 Active 75446127 Problem Acquired absence of right leg below knee Z89.511 Active 809855531 Problem Diabetes type 2, uncontrolled E11.65 Active 438017197 Problem Mild intermittent asthma without complication J45.20 Active 182097691 Problem Obstructive sleep apnea syndrome G47.33 Active 19050066 Problem Phantom pain R52 Active 922549259 Problem Cellulitis of left lower extremity L03.116 Active 582656193 Problem Essential hypertension I10 Active 67407215 Problem Acute pain of left shoulder M25.512 Active 18034792 ALLERGIES No Information ENCOUNTERS Encounter Location Date Diagnosis [facility] [address] [facility] [id number] [place] [address] Dec, [facility] [address] [facility] [id number] [id number] Nov, [facility] [id number] [id number] Oct, [facility] [id number] [place] [address] [id number] Oct, Diabetes type 2, uncontrolled E11.65 [facility] [id number] [place] [address] [id number] Oct, Diabetes type 2, uncontrolled E11.65 and Cellulitis of left lower extremity L03.116 [facility] [id number] [place] [address] [id number] Oct, Phantom pain R52 [facility] [address] [address] Sep, Onychomycosis B35.1 ; Impaired circulation of left leg I99.9 and DM neuro manif type II E11.49 [facility] [id number] [place] [address] [id number] Sep, BMI 40.0-44.9, adult Z68.41 ; Skin ulcer of left lower leg, limited to breakdown of skin L97.921 ; Acute pain of left shoulder M25.512 ; DM neuro manif type II E11.49 ; Mild intermittent asthma without complication J45.20 and Phantom pain R52 [facility] [id number] [place] [address] [id number] Sep, Phantom pain R52 [facility] [id number] [place] [address] [id number] August, Phantom pain R52 [facility] [id number] [place] [address] [id number] August, Acquired absence of right leg below knee Z89.511 [facility] [id number] [place] [address] [id number] August, Acquired absence of right leg below knee Z89.511 [facility] [address] [address] August, Diabetes type 2, uncontrolled E11.65 [place] [address] [address] August, [place] [address] [place] [address] August, [place] [address] [id number] [place] [address] [id number] August, BMI 40.0-44.9, adult Z68.41 ; 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 and Acquired absence of right leg below knee Z89.[address] [id number] [place] [address] August, [address] [place] [address] [id number] Jul, Skin ulcer of left lower leg, limited to breakdown of skin L97.921 [place] [id number] [place] [address] [id number] Jul, [place] [id number] [place] [address] [id number] Jul, BMI 40.0-44.9, adult Z68.41 ; Skin ulcer of left lower leg, limited to breakdown of skin L97.921 and DM neuro manif type II E11.49 [place] [id number] [place] [address] Jul, [address] [place] [address] [id number] Jul, [place] [id number] [place] [address] [id number] Jul, [place] [id number] [place] [address] [id number] Jun, Erectile dysfunction, unspecified erectile dysfunction type N52.9 [place] [id number] [place] [address] Jun, [place] [id number] [place] [address] [id number] Jun, BMI 40.0-44.9, adult Z68.41 ; Diabetes type 2, uncontrolled E11.65 ; Phantom pain R52 ; Subluxation of right shoulder joint, sequela S43.001S and Erectile dysfunction, unspecified erectile dysfunction type N52.9 [facility] [address]005[address] [address] Jun, DM neuro manif type II E11.49 ; Onychomycosis B35.1 and Hammertoe of left foot M20.42 [facility] [address]00565100[place], [place] [address] Jun, [place] [id number] [place] [address] [id number] Jun, DM neuro manif type II E11.[address] [id number] [id number] Jun, DM neuro manif type II E11.49 [address] [place] [address] [id number] May, DM neuro manif type II E11.49 ; Venous insufficiency (chronic) (peripheral) I87.2 ; 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 ; Essential hypertension I10 and Phantom pain R52 [place] [address] [place] [address] [id number] Apr, Diabetes type 2, uncontrolled E11.65 ; Acquired absence of right leg below knee Z89.511 ; Essential hypertension I10 ; Reflux esophagitis K21.0 and Phantom pain R52 [address] [place] [address] [id number] Apr, BMI 40.0-44.9, adult Z68.41 and Wheelchair bound Z99.3 [address] [place] [address] [id number] Mar, [address] [id number] Mar, BMI 40.0-44.9, adult Z68.41 ; Diabetes type 2, uncontrolled E11.65 ; Mild intermittent asthma without complication J45.20 ; Phantom pain R52 ; Reflux esophagitis K21.0 and Essential hypertension I10 [address], [place] [id number] Feb, Phantom pain R52 [facility] [id number] [place] [address] [id number] Feb, Phantom pain R52 and Acute pain of left shoulder M25.512 [facility] [id number] [place] [address] [id number] Jan, Phantom pain R52 [facility] [id number] [place] [address] [id number] Jan, DM neuro manif type II E11.49 ; Cellulitis of left lower extremity L03.116 ; Obstructive sleep apnea syndrome G47.33 ; Thyroid disorder screen Z13.29 and Lipid screening Z13.220 [facility] [id number] [place] [address] [id number] Jan, [facility] [id number] [place] [address] [id number] Dec, DM neuro manif type II E11.49 ; Phantom pain R52 and Mild intermittent asthma without complication J45.20 [facility] [id number] [place] [address] [id number] Dec, Wound of left lower extremity, subsequent encounter S81.802D [facility] [id number] [place] [address] [id number] Nov, [facility] [id number] [place] [address] Nov, [facility] [id number] [place] [address] [id number] Nov, DM neuro manif type II E11.49 ; Mild intermittent asthma without complication J45.20 ; Essential hypertension I10 and Phantom pain R52 [facility] [id number] [place] [address] [id number] Oct, Phantom pain R52 [facility] [id number] [place] [address] [id number] Sep, Phantom pain R52 ; DM neuro manif type II E11.49 and Essential hypertension I10 [facility] [id number] [place] [address] [id number] August, DM neuro manif type II E11.49 ; Phantom pain R52 and Essential hypertension I10 [facility] [id number] [place] [address] [id number] Jul, DM neuro manif type II E11.49 and Phantom pain R52 [facility] [address], [place] [address] Jun, Onychomycosis B35.1 and DM neuro manif type II E11.49 [place] [address] [place] [address] [id number] Jun, DM neuro manif type II E11.49 ; Phantom pain R52 ; Essential hypertension I10 and Diabetes with neurological manifestations, type II or unspecified type, not stated as uncontrolled 250.60 [place] [address] [place] [address] [id number] Apr, DM neuro manif type II E11.49 ; Phantom pain R52 ; Essential hypertension I10 and Mild intermittent asthma without complication J45.20 [place] [address] [place] [address] [id number] Apr, Need for follow up care after discharge from healthcare facility Z92.89 and Wound of right lower extremity, subsequent encounter S81.801D [place] [address] [place] [address] [id number] Mar, Phantom pain R52 ; DM neuro manif type II E11.49 and Essential hypertension I10 [place] [address] [place] [address] [id number] Feb, DM neuro manif type II E11.49 ; Phantom pain R52 and Essential hypertension I10 [place] [address] [place] [address] [id number] Jan, Phantom pain R52 and DM neuro manif type II E11.49 [address] [place] [address] [id number] Dec, [place] [address] [place] [address] [id number] Dec, DM neuro manif type II E11.49 ; Phantom pain R52 ; Mild intermittent asthma without complication J45.20 and Essential hypertension I10 [facility] [address] [id number], [place] [address] Dec, Onychomycosis B35.1 ; Xerosis of skin L85.3 and DM neuro manif type II E11.49 [address] [place] [address] [id number] Nov, Acquired absence of right leg below knee Z89.511 [place] [address] [place] [address] [id number] Nov, [place] [address] [place] [address] [id number] Nov, [place] [address] [place] [address] [id number] Sep, [place] [address] [place] [address] [id number] Sep, Diabetes type 2, uncontrolled E11.65 ; Leg wound, left, initial encounter S81.802A and Erectile disorder due to medical condition in male N52.1 [address] [place] [address] [id number] Sep, [address] [place] [address] [id number] Jul, [place] [address] [place] [address] [id number] Jul, [place] [address] [place] [address] [id number] Jul, [place] [address] [place] [address] [id number] Jul, 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 ; Varicose vein of leg I83.93 ; Diabetes type 2, uncontrolled E11.65 and Chronic pain G89.29 [address] [place] [address] [id number] Jul, [place] [address] [place] [address] [id number] Jul, Diabetes with neurological manifestations, type II or unspecified type, not stated as uncontrolled 250.60 [place] [address] [place] [address] [id number] Jul, [facility] [address] [place] [address] [id number] [id number] Jul, [facility] [id number] [place] [address] [id number] Jun, Diabetes type 2, uncontrolled E11.65 [facility] [id number] [place] [address] [id number] Jun, Pain in right knee M25.561 ; Pain in left knee M25.562 ; Other chronic pain G89.29 and Primary osteoarthritis of both knees M17.0 [facility] [id number] [place] [address] [id number] Apr, Diabetes type 2, uncontrolled E11.65 ; Puncture wound of foot, left, initial encounter S91.332A and Encounter for immunization Z23 [facility] [id number] [place] [address] [id number] 15 Apr, 2015 [place] [id number] [place] [address] [id number] Apr, [facility] [id number] [place] [address] [id number] Feb, Acquired absence of right leg below knee Z89.511 [facility] [id number] [place] [address] [id number] Feb, Acquired absence of right leg below knee Z89.511 [facility] [id number] [id number] Feb, Diabetes type 2, uncontrolled E11.65 and Acquired absence of right leg below knee Z89.511 [facility] [id number], [place] [id number] Jan, [facility] [id number], [place] [id number] Jan, [facility] [address], [place] [address] Jan, [facility] [address] [id number] [id number] Jan, [facility] [id number] [place] [address] [id number] Dec, [facility] [id number] [place] [address] [id number] Dec, Diabetes with neurological manifestations, type II or unspecified type, not stated as uncontrolled 250.60 and Open wound of foot except toe(s) alone, without mention of complication 892.0 [facility] [id number] [place] [address] [id number] Dec, [facility] [address] [id number] Nov, [facility] [id number] [place] [address] [id number] Nov, Cellulitis of foot 682.7 [facility] [address] [id number] Oct, [facility] [id number] [place] [address] [id number] Oct, Corneal abrasion 918.1 [facility] [id number] [place] [address] [id number] Oct, [facility] [id number] [place] [address] [id number] Oct, [facility] [id number] [place] [address] [id number] August, [facility] [id number] [place] [address] [id number] August, [facility] [id number] [place] [address] [id number] August, [facility] [id number] [place] [address] [id number] August, [facility] [id number] [place] [address] [id number] August, Diabetes mellitus without mention of complication, type II or unspecified type, not stated as uncontrolled 250.00 [facility] [id number] [place] [address] Jul, [facility] [id number] [place] [address] Jul, [facility] [place] [facility] [address] [id number] [place] [address] Apr, [facility] [place] [facility] [address] [id number] [place] [address] Apr, [facility] [place] [facility] [address] [id number] [place] [address] Mar, [facility] [place] [facility] [address] [id number] [place] [address] Mar, [facility] [place] [facility] [address] [id number] [place] [address] Mar, [facility] [place] [facility] [address] [id number] [place] [address] Mar, [facility] [place] [facility] [address] [id number] [place] [address] Mar, [facility] [place] [facility] [address] [id number] [place] [address] Mar, [facility] [address] [facility] [id number] [id number] Mar, [facility] [place] [facility] [address] [id number] [place] [address] Mar, [facility] [place] [facility] [address] [id number] [place] [address] Mar, [facility] [place] [facility] [address] [id number] [place] [address] Mar, [facility] [place] [facility] [address] [id number] [place] [address] Mar, [facility] [place] [facility] [address] [id number] [place] [address] Mar, [facility] [place] [facility] [address] [id number] [place] [address] Mar, [facility] [address] [id number] [id number] Mar, [facility] [place] [facility] [address] [id number] [place] [address] Jan, [facility] [address] [id number] [place] [id number] Jan, [facility] [place] [facility] [address] [id number] [place] [address] Jan, [facility] [place] [facility] [address] [id number] [place] [address] Jan, [facility] [place] [facility] [address] [id number] [place] [address] Jan, [facility] [address] [id number] [place] [id number] Jan, [facility] [place] [facility] [address] [id number] [place] [address] Dec, [facility] [address] [facility] [id number] [place] [id number] Nov, [facility] [place] [facility] [address] [facility] [id number] [place] [address] Nov, [facility] [address] [id number] [place] [id number] Oct, [facility] [place] [facility] [address] [facility] [id number] [place] [address] Oct, [facility] [address] [facility] [id number], [place] [id number] Oct, [facility] [place] [facility] [address] [facility] [id number] [place] [address] Oct, [facility] [place] [facility] [address] [id number] [place] [address] August, [facility] [place] [facility] [address] [facility] [id number] [place] [address] August, [facility] [place] [facility] [address] [facility] [id number] [place] [address] August, [facility] [place] [facility] [address] [id number], [place] [address] August, [facility] [address] [id number] [place] [id number] Jul, [facility] [place] [facility] [address] [facility] [id number], [place] [address] Jul, [facility] [address] [id number] [place] [id number] Jun, [facility] [place] [facility] [address] [facility] [id number], [place] [address] Jun, [facility] [address] [id number] [place] [id number] Jun, [facility] [place] [facility] [address] [facility] [id number], [place] [address] Jun, [facility] [address] [id number] [place] [id number] Jun, [facility] [place] [facility] [address], [place] [address] Jun, [facility] [address] [facility] [id number] [place] [id number] Jun, [facility] [place] [facility] [address], [place] [address] Jun, [facility] [address] [facility] [id number] [place] [id number] May, [facility] [place] [facility] [address] [id number] [address] May, [facility] [address] [facility] [id number][place] [id number] May, [facility] [place] [facility] [address] [id number], [place] [address] May, [facility] [place] [facility] [address] [facility] [id number], [place] [address] May, [facility] [place] [facility] [address] [id number], [place] [address] May, [facility] [address] [id number] [place] [id number] May, [facility] [address] [facility] [id number], [place] [address] May, [facility] [address] [id number] [place] [id number] May, [facility] [address] [facility] [id number], [place] [address] May, [facility] [address] [facility] [id number], [place] [address] Apr, [facility] [address] [facility] [id number], [place] [address] Apr, [facility] [address] [id number][place] [id number] Apr, [facility] [address], [place] [address] Apr, [facility] [address] [id number], [place] [id number] Sep, [facility] [address] [facility] [id number], [place] [address] Sep, [facility] [address] [id number], [place] [id number] Sep, [facility] [address] [id number], [place] [id number] Sep, [facility] [address] [facility] [id number], [place] [address] Jun, [facility] [address] [id number] [place] [id number] Nov, [facility] [address] [id number] [place] 3370[address] Nov, [facility] [address] [id number] [place] [id number] Nov, [facility] [address] [id number] [place] [id number] Nov, [facility] [id number], [place] [id number] Nov, [facility] [id number], [place] [id number] Nov, [facility] [id number], [place] 868[address]55[address] Nov, [facility] [id number], [place] [id number] Nov, [facility] [id number] [place] [address] [id number] Nov, [facility] [id number] [id number] Sep, [facility] [id number] [place] [id number] Sep, [facility] [id number] [place] [id number] Sep, [facility] [id number] [id number] Sep, [facility] [id number] [id number] August, [facility] [id number] [id number] August, [facility] [id number] [place] [id number] August, [facility] [id number][place] [id number] August, [facility] [id number] [address] Sep, IMMUNIZATIONS No Known Immunizations SOCIAL HISTORY Never Assessed REASON FOR VISIT Test results PLAN OF CARE VITAL SIGNS MEDICATIONS Unknown [...] 11/2014 Surgical History amputation right mid-calf/foot at [facility] 01/2015 Hospitalization History [facility] post op infection to right foot, amputations to mid-calf 01/2015 Hospitalization History Via [facility] In post-op 7 days, discharges with home health -02/2015 Hospitalization History [facility] visit for sore on right stump 04/2016 Hospitalization History [facility] wound on left lower leg, culture +for Strep G 12/2016
--- OUTSIDE RECORDS SUMMARY | 2018-10-31 17:44 | XMS REPORT ---
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 Active 772775008 Problem Venous insufficiency (chronic) (peripheral) I87.2 Active 94719228 Problem 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 Active 653581309 Problem Skin ulcer of left lower leg, limited to breakdown of skin L97.921 Active 32390161 Problem Erectile dysfunction, unspecified erectile dysfunction type N52.9 Active 443785544 Problem DM neuro manif type II E11.49 Active 70172898 Problem Acquired absence of right leg below knee Z89.511 Active 461437682 Problem Diabetes type 2, uncontrolled E11.65 Active 680921371 Problem Mild intermittent asthma without complication J45.20 Active 828515466 Problem Obstructive sleep apnea syndrome G47.33 Active 89467926 Problem Phantom pain R52 Active 634306907 Problem Cellulitis of left lower extremity L03.116 Active 165676732 Problem Essential hypertension I10 Active 19922944 Problem Acute pain of left shoulder M25.512 Active 15854079 ALLERGIES No Information ENCOUNTERS Encounter Location Date Diagnosis [facility] [place] [address] [facility] [id number] [place] [address] Dec, [facility] [address] [facility] [id number][place] [id number] Nov, [facility] [id number], [place] [phone] Oct, [facility] [id number] [place] [address] [id number] Oct, Diabetes type 2, uncontrolled E11.65 and Cellulitis of left lower extremity L03.116 [facility] [id number] [place] [address] [id number] Oct, Phantom pain R52 [place] [address] [address] Sep, Onychomycosis B35.1 ; Impaired circulation of left leg I99.9 and DM neuro manif type II E11.49 [facility] [id number] [place] [address] [id number] Sep, BMI 40.0-44.9, adult Z68.41 ; Skin ulcer of left lower leg, limited to breakdown of skin L97.921 ; Acute pain of left shoulder M25.512 ; DM neuro manif type II E11.49 ; Mild intermittent asthma without complication J45.20 and Phantom pain R52 [facility] [id number] [place] [address] [id number] Sep, Phantom pain R52 [facility] [id number] [place] [address] [id number] August, Phantom pain R52 [facility] [id number] [place] [address] [id number] August, Acquired absence of right leg below knee Z89.511 [facility] [id number] [place] [address] [id number] August, Acquired absence of right leg below knee Z89.511 [place] [address] [address] August, Diabetes type 2, uncontrolled E11.65 [facility] [place] [address] [address] August, [place] [address] [address] August, [facility] [address]00565[address], [place] [id number] August, BMI 40.0-44.9, adult Z68.41 ; 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 and Acquired absence of right leg below knee Z89.511 [facility] DEE [address] [place], [place] [address] [id number] [place] [address] August, [facility] [id number] [place] [address] [id number] Jul, Skin ulcer of left lower leg, limited to breakdown of skin L97.921 [place] [id number] [place] [address] [id number] Jul, [place] [id number] [place] [address] [id number] Jul, BMI 40.0-44.9, adult Z68.41 ; Skin ulcer of left lower leg, limited to breakdown of skin L97.921 and DM neuro manif type II E11.49 [place] [address] [place] [id number] [place] [address] Jul, [facility] [id number] [place] [address] [id number] Jul, [place] [id number] [place] [address] [id number] Jul, [place] [id number] [place] [address] [phone] Jun, Erectile dysfunction, unspecified erectile dysfunction type N52.9 [facility] [place] [id number] [place] [address] Jun, [place] [id number] [place] [address] [id number] Jun, BMI 40.0-44.9, adult Z68.41 ; Diabetes type 2, uncontrolled E11.65 ; Phantom pain R52 ; Subluxation of right shoulder joint, sequela S43.001S and Erectile dysfunction, unspecified erectile dysfunction type N52.9 [facility] [place] [address] [place] [address] Jun, DM neuro manif type II E11.49 ; Onychomycosis B35.1 and Hammertoe of left foot M20.42 [facility] [place] [address] [facility] [id number], [place] [address] Jun, [facility] [address] [id number] Jun, DM neuro manif type II E11.[address] [place] [address] [id number] [phone] Jun, DM neuro manif type II E11.49 [address] [place] [address] [id number] May, DM neuro manif type II E11.49 ; Venous insufficiency (chronic) (peripheral) I87.2 ; 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 ; Essential hypertension I10 and Phantom pain R52 [address] [place] [address] [phone] Apr, Diabetes type 2, uncontrolled E11.65 ; Acquired absence of right leg below knee Z89.511 ; Essential hypertension I10 ; Reflux esophagitis K21.0 and Phantom pain R52 [place] [id number] [place] [address] [id number] Apr, BMI 40.0-44.9, adult Z68.41 and Wheelchair bound Z99.[address] [place] [address] [id number] Mar, [place] [id number] [place] [address] [id number] Mar, BMI 40.0-44.9, adult Z68.41 ; Diabetes type 2, uncontrolled E11.65 ; Mild intermittent asthma without complication J45.20 ; Phantom pain R52 ; Reflux esophagitis K21.0 and Essential hypertension I10 [facility] [address] [place] [address] [id number] Feb, Phantom pain R52 [place] [id number] [place] [address] [phone] Feb, Phantom pain R52 and Acute pain of left shoulder M25.512 [facility] [id number] [place] [address] [id number] Jan, Phantom pain R52 [facility] [id number] [place] [address] [id number] Jan, DM neuro manif type II E11.49 ; Cellulitis of left lower extremity L03.116 ; Obstructive sleep apnea syndrome G47.33 ; Thyroid disorder screen Z13.29 and Lipid screening Z13.220 [facility] [id number] [place] [address] [id number] Jan, [facility] [id number] [place] [address] [id number] Dec, DM neuro manif type II E11.49 ; Phantom pain R52 and Mild intermittent asthma without complication J45.20 [facility] [id number] [place] [address] [id number] Dec, Wound of left lower extremity, subsequent encounter S81.802D [facility] [id number] [place] [address] [id number] Nov, [facility] [place] [id number] [place] [address] Nov, [facility] [id number] [place] [address] [id number] Nov, DM neuro manif type II E11.49 ; Mild intermittent asthma without complication J45.20 ; Essential hypertension I10 and Phantom pain R52 [facility] [id number][place] [id number] Oct, Phantom pain R52 [facility] [id number] [place] [address] [id number] Sep, Phantom pain R52 ; DM neuro manif type II E11.49 and Essential hypertension I10 [facility] [id number] [place] [address] [id number] August, DM neuro manif type II E11.49 ; Phantom pain R52 and Essential hypertension I10 [facility] [id number] [place] [address] [id number] Jul, DM neuro manif type II E11.49 and Phantom pain R52 [facility] [place] [id number] [place] [address] Jun, Onychomycosis B35.1 and DM neuro manif type II E11.49 [facility] [id number] [place] [address] [id number] Jun, DM neuro manif type II E11.49 ; Phantom pain R52 ; Essential hypertension I10 and Diabetes with neurological manifestations, type II or unspecified type, not stated as uncontrolled 250.60 [facility] [id number] [place] [address] [id number] Apr, DM neuro manif type II E11.49 ; Phantom pain R52 ; Essential hypertension I10 and Mild intermittent asthma without complication J45.20 [facility] [id number] [place] [address] [id number] Apr, Need for follow up care after discharge from healthcare facility Z92.89 and Wound of right lower extremity, subsequent encounter S81.801D [facility] [id number] [place] [address] [id number] Mar, Phantom pain R52 ; DM neuro manif type II E11.49 and Essential hypertension I10 [facility] [id number] [place] [address] [id number] Feb, DM neuro manif type II E11.49 ; Phantom pain R52 and Essential hypertension I10 [facility] [id number] [place] [address] [id number] Jan, Phantom pain R52 and DM neuro manif type II E11.49 [facility] [id number] [place] [address] [id number] Dec, [place] [address] [place] [address] [id number] Dec, DM neuro manif type II E11.49 ; Phantom pain R52 ; Mild intermittent asthma without complication J45.20 and Essential hypertension I10 [facility] [place] [address] [place] [id number] [place] [address] Dec, Onychomycosis B35.1 ; Xerosis of skin L85.3 and DM neuro manif type II E11.49 [facility] [id number] [place] [id number] Nov, Acquired absence of right leg below knee Z89.511 [facility] [id number] [place] [address] [id number] Nov, [facility] [id number] [place] [address] [id number] Nov, [facility] [id number] [place] [address] [id number] Sep, [facility] [address] [place] [address] [id number] Sep, Diabetes type 2, uncontrolled E11.65 ; Leg wound, left, initial encounter S81.802A and Erectile disorder due to medical condition in male N52.1 [facility] [id number] [place] [address] [id number] Sep, [facility] [id number] [place] [address] [id number] Jul, [facility] [id number] [place] [address] [id number] Jul, [facility] [id number] [place] [address] [id number] Jul, [facility] [address] [place] [address] [id number] Jul, 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 ; Varicose vein of leg I83.93 ; Diabetes type 2, uncontrolled E11.65 and Chronic pain G89.29 [facility] [id number] [place] [address] [id number] Jul, [facility] [id number] [place] [address] [id number] Jul, Diabetes with neurological manifestations, type II or unspecified type, not stated as uncontrolled 250.60 [facility] [id number] [place] [address] [id number] Jul, [facility] [id number] [place] [address] [id number] Jul, [facility] [id number] [place] [address] [id number] Jun, Diabetes type 2, uncontrolled E11.65 [place] [id number] [place] [address] [id number] Jun, Pain in right knee M25.561 ; Pain in left knee M25.562 ; Other chronic pain G89.29 and Primary osteoarthritis of both knees M17.0 [place] [id number] [place] [address] [id number] Apr, Diabetes type 2, uncontrolled E11.65 ; Puncture wound of foot, left, initial encounter S91.332A and Encounter for immunization Z23 [place] [id number] [place] [address] [id number] Apr, [place] [id number] [place] [address] [id number] Apr, [place] [id number] [place] [address] [id number] Feb, Acquired absence of right leg below knee Z89.511 [place] [id number] [place] [address] [id number] Feb, Acquired absence of right leg below knee Z89.511 [place] [id number] [place] [address] [id number] Feb, Diabetes type 2, uncontrolled E11.65 and Acquired absence of right leg below knee Z89.511 [place] [id number] [place] [address] [id number] Jan, [place] [id number] [place] [address] [id number] Jan, [facility] [place] [address] [id number], [place] [address] Jan, [place] [id number] [place] [address] [id number] Jan, [facility] [id number] [id number] Dec, [address] [place] [address] [id number] Dec, Diabetes with neurological manifestations, type II or unspecified type, not stated as uncontrolled 250.60 and Open wound of foot except toe(s) alone, without mention of complication 892.0 [facility] [address] [id number] Dec, [facility] [id number] [place] [address] [id number] Nov, [facility] [address] [id number] Nov, Cellulitis of foot 682.7 [facility] [address] [id number] Oct, [facility] [address] [id number] Oct, Corneal abrasion 918.1 [facility] [id number] [place] [address] [id number] Oct, [facility] [address] [id number] Oct, [facility] [address] [place] [id number] [place] [address] [id number] August, [facility] [id number] [place] [address] [id number] August, [facility] [id number] [place] [address] [id number] August, [facility] [id number] [place] [address] [id number] August, [facility] [id number] [place] [address] [id number] August, Diabetes mellitus without mention of complication, type II or unspecified type, not stated as uncontrolled 250.00 [facility] [place] [address] [id number] [place] [address] Jul, [facility] [place] [address] [address] Jul, [facility] [place] [id number] [place] [address] Apr, [facility] [place] [address] [place] [id number] [place] [address] Apr, [facility] [address] [id number] [place] [address] Mar, [facility] [address] [id number] [place] [address] Mar, [facility] [address] [id number] [place] [address] Mar, [facility] [address] [id number] [place] [address] Mar, [facility] [address] [id number] [place] [address] Mar, [facility] [address] [id number] [place] [address] Mar, [facility] [address] [facility] [id number][place] [id number] Mar, [facility] [address] [id number] [place] [address] Mar, [facility] [address] [id number] [place] [address] Mar, [facility] [address] [id number] [place] [address] Mar, [facility] [place] [facility] [address] [id number] [place] [address] Mar, [facility] [place] [facility] [address] [id number], [place] [address] Mar, [facility] [place] [facility] [address] [id number] [place] [address] Mar, [facility] [address] [id number], [place] [phone] Mar, [facility] [place] [facility] [address] [id number] [place] [address] Jan, [facility] [address] [id number][place] [phone] Jan, [facility] [address] [id number] [place] [address] Jan, [facility] [place] [facility] [address] [id number] [place] [address] Jan, [facility] [place] [facility] [address] [id number], [place] [address] Jan, [facility] [address] [facility] [id number][place] [id number] Jan, [facility] [place] [facility] [address] [id number] [place] [address] Dec, [facility] [address] [facility] [id number], [place] [phone] Nov, [facility] [place] [facility] [address] [facility] [id number], [place] [address] Nov, [facility] [address] [facility] [id number], [place] [id number] Oct, [facility] [place] [facility] [address] [facility] [id number] [place] [address] Oct, [facility] [address] [facility] [id number], [place] [id number] Oct, [facility] [place] [facility] [address] [facility] [id number], [place] [address] Oct, [facility] [place] [facility] [address] [id number], [place] [address] August, [facility] [place] [facility] [address] [facility] [id number] [place] [address] August, [facility] [place] [facility] [address] [facility] [id number] [place] [address] August, [facility] [place] [facility] [address] [facility] [id number], [place] [address] August, [facility] [address] [facility] [id number], [place] [id number] Jul, [facility] [place] [facility] [address] [facility] [id number] [place] [address] Jul, [facility] [address] [facility] [id number] [place] [id number] Jun, [facility] [place] [facility] [address] [facility] [id number] [place] [address] Jun, [facility] [address] [facility] [id number] [place] [id number] Jun, [facility] [place] [facility] [address] [facility] [id number] [place] [address] Jun, [facility] [address] [facility] [id number] [place] [id number] Jun, [facility] [place] [facility] [address] [place] [address] [id number] [place] [address] Jun, [facility] [address] [place] [id number] [place] [id number] Jun, [facility] [place] [facility] [address] [id number], [place] [address] Jun, [facility] [address] [facility] [id number] [place] [phone] May, [facility] [place] [facility] [address] [place] [id number] [place] [address] May, [facility] [address] [facility] [id number], [place] [id number] May, [facility] [place] [facility] [address] [facility] [id number] [place] [address] May, [facility] [place] [facility] [address] [facility] [id number] [place] [address] May, [facility] [place] [facility] [address] [facility] [id number] [place] [address] May, [facility] [address] [facility] [id number] [place] [id number] May, [facility] [place] [facility] [address] [facility] [id number], [place] [address] May, [facility] [address] [id number] [place] [id number] May, [facility] [address] [facility] [id number], [place] [address] May, [facility] [address] [facility] [id number], [place] [address] Apr, [facility] [address] [facility] [id number], [place] [address] Apr, [facility] [address] [id number][place] [id number] Apr, [facility] [address] [facility] [id number], [place] [address] Apr, [facility] [address] [id number][place] [id number] Sep, [facility] [address] [facility] [id number], [place] [address] Sep, [facility] [address] [id number][place] [id number] Sep, [facility] [address] [id number][place] [id number] Sep, [facility] [address] [facility] [id number], [place] [address] Jun, [facility] [address] [id number][place] [id number] Nov, [facility] [address] [id number] [place] [id number] Nov, [facility] [address] [id number] [place] [id number] Nov, [facility] [address] [id number] [place] [phone] Nov, [facility] [address] [id number] [place] [id number] Nov, [facility] [address] [id number], [place] [id number] Nov, [facility] [id number][place] [id number] Nov, [facility] [id number][place] [id number] Nov, [facility] [id number], [place] [id number] Nov, [facility] [id number], [place] [id number] Sep, [facility] [id number][place] [id number] Sep, [facility] [id number], [place] [id number] Sep, [facility] [id number], [place] [id number] Sep, [facility] [id number], [place] [id number] August, [facility] [id number][place] [id number] August, [facility] [id number], [place] [id number] August, [facility] [id number], [place] [id number] August, [facility] [place] [address] [id number], [place] [address] Sep, IMMUNIZATIONS No Known Immunizations SOCIAL HISTORY Never Assessed REASON FOR VISIT BS f/u PLAN OF CARE VITAL SIGNS MEDICATIONS Unknown [...] Surgical History amputation right mid-calf/foot at [facility] 01/2015 Hospitalization History Yana Cedeno post op infection to right foot, amputations to mid-calf 01/2015 Hospitalization History [facility] In post-op 7 days, discharges with home health -02/2015 Hospitalization History [facility] ER visit for sore on right stump 04/2016 Hospitalization History [facility] wound on left lower leg, culture +for Strep G 12/2016
--- OUTSIDE RECORDS SUMMARY | 2018-10-31 17:44 | XMS REPORT ---
Author Author JERRICA MENDEZ [facility] Address [address] [place] [address] Care Team Providers Care [employer] Engineer Name Role Phone JERRICA MENDEZ Unavailable PROBLEMS Type Condition ICD9-CM Code BRL39-ZB Code Onset Dates Condition Status SNOMED Code Problem Reflux esophagitis K21.0 Active 524945938 Problem Wheelchair bound Z99.3 Active 762768914 Problem Hammertoe of left foot M20.42 Active 238072312 Problem Varicose veins of left lower extremity with ulcer other part of lower leg I83.028 Active 61123966 Problem 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 Active 345411061 Problem Venous insufficiency (chronic) (peripheral) I87.2 Active 21973159 Problem 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 Active 591826417 Problem Skin ulcer of left lower leg, limited to breakdown of skin L97.921 Active 35940011 Problem Erectile dysfunction, unspecified erectile dysfunction type N52.9 Active 889717324 Problem DM neuro manif type II E11.49 Active 57705005 Problem Acquired absence of right leg below knee Z89.511 Active 752538370 Problem Diabetes type 2, uncontrolled E11.65 Active 473662963 Problem Mild intermittent asthma without complication J45.20 Active 772278609 Problem Obstructive sleep apnea syndrome G47.33 Active 84252557 Problem Phantom pain R52 Active 257066584 Problem Cellulitis of left lower extremity L03.116 Active 285313173 Problem Essential hypertension I10 Active 61954375 Problem Acute pain of left shoulder M25.512 Active 77663774 ALLERGIES No Information ENCOUNTERS Encounter Location Date Diagnosis [facility] [address] [facility] [id number] [place] [address] Dec, [facility] [address] [facility] [id number] [phone] Nov, [facility] [id number], [place] [phone] Oct, [facility] [place] [id number] [place] [address] [phone] Oct, Diabetes type 2, uncontrolled E11.65 [facility] [place] [id number] [place] [address] [id number] Oct, Diabetes type 2, uncontrolled E11.65 and Cellulitis of left lower extremity L03.116 [facility] [id number] [place] [address] [id number] Oct, Phantom pain R52 [facility] [address] [address] Sep, Onychomycosis B35.1 ; Impaired circulation of left leg I99.9 and DM neuro manif type II E11.49 [facility] [id number] [place] [address] [id number] Sep, BMI 40.0-44.9, adult Z68.41 ; Skin ulcer of left lower leg, limited to breakdown of skin L97.921 ; Acute pain of left shoulder M25.512 ; DM neuro manif type II E11.49 ; Mild intermittent asthma without complication J45.20 and Phantom pain R52 [facility] [id number] [place] [address] [id number] Sep, Phantom pain R52 [facility] [id number] [place] [address] [id number] August, Phantom pain R52 [facility] [id number] [place] [address] [id number] August, Acquired absence of right leg below knee Z89.511 [facility] [id number] [place] [address] [id number] August, Acquired absence of right leg below knee Z89.511 [facility] [address] [address] August, Diabetes type 2, uncontrolled E11.65 [place] [address] [address] August, [place] [address] [place] [address] August, [place] [id number] [place] [address] [id number] August, BMI 40.0-44.9, adult Z68.41 ; 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 and Acquired absence of right leg below knee Z89.[address] [id number] [place] [address] August, [address] [place] [address] [id number] Jul, Skin ulcer of left lower leg, limited to breakdown of skin L97.921 [place] [id number] [place] [address] [id number] Jul, [place] [id number] [place] [address] [id number] Jul, BMI 40.0-44.9, adult Z68.41 ; Skin ulcer of left lower leg, limited to breakdown of skin L97.921 and DM neuro manif type II E11.49 [place] [id number] [place] [address] Jul, [address] [place] [address] [id number] Jul, [place] [id number] [place] [address] [id number] Jul, [place] [id number] [place] [address] [id number] Jun, Erectile dysfunction, unspecified erectile dysfunction type N52.9 [place] [id number] [place] [address] Jun, [place] [id number] [place] [address] [id number] Jun, BMI 40.0-44.9, adult Z68.41 ; Diabetes type 2, uncontrolled E11.65 ; Phantom pain R52 ; Subluxation of right shoulder joint, sequela S43.001S and Erectile dysfunction, unspecified erectile dysfunction type N52.9 [facility] [address]00565100[place] [address] Jun, DM neuro manif type II E11.49 ; Onychomycosis B35.1 and Hammertoe of left foot M20.42 [facility] [address]00565100[place] [address] Jun, [place] [id number] [place] [address] [phone] Jun, DM neuro manif type II E11.[address] [id number] [phone] Jun, DM neuro manif type II E11.49 [address] [place] [address] [id number] May, DM neuro manif type II E11.49 ; Venous insufficiency (chronic) (peripheral) I87.2 ; 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 ; Essential hypertension I10 and Phantom pain R52 [place] [id number] [place] [address] [id number] Apr, Diabetes type 2, uncontrolled E11.65 ; Acquired absence of right leg below knee Z89.511 ; Essential hypertension I10 ; Reflux esophagitis K21.0 and Phantom pain R52 [address] [place] [address] [id number] Apr, BMI 40.0-44.9, adult Z68.41 and Wheelchair bound Z99.3 [address] [place] [address] [id number] Mar, [address] [id number] Mar, BMI 40.0-44.9, adult Z68.41 ; Diabetes type 2, uncontrolled E11.65 ; Mild intermittent asthma without complication J45.20 ; Phantom pain R52 ; Reflux esophagitis K21.0 and Essential hypertension I10 [address], [place] [id number] Feb, Phantom pain R52 [facility] [id number] [place] [address] [id number] Feb, Phantom pain R52 and Acute pain of left shoulder M25.512 [facility] [id number] [place] [address] [id number] Jan, Phantom pain R52 [facility] [id number] [place] [address] [id number] Jan, DM neuro manif type II E11.49 ; Cellulitis of left lower extremity L03.116 ; Obstructive sleep apnea syndrome G47.33 ; Thyroid disorder screen Z13.29 and Lipid screening Z13.220 [facility] [id number] [place] [address] [id number] Jan, [facility] [id number] [place] [address] [phone] Dec, DM neuro manif type II E11.49 ; Phantom pain R52 and Mild intermittent asthma without complication J45.20 [facility] [id number] [place] [address] [id number] Dec, Wound of left lower extremity, subsequent encounter S81.802D [facility] [id number] [place] [address] [id number] Nov, [facility] [id number] [place] [address] Nov, [facility] [address] [place] [address] [id number] Nov, DM neuro manif type II E11.49 ; Mild intermittent asthma without complication J45.20 ; Essential hypertension I10 and Phantom pain R52 [facility] [id number] [place] [address] [id number] Oct, Phantom pain R52 [facility] [id number] [place] [address] [id number] Sep, Phantom pain R52 ; DM neuro manif type II E11.49 and Essential hypertension I10 [facility] [id number] [place] [address] [id number] August, DM neuro manif type II E11.49 ; Phantom pain R52 and Essential hypertension I10 [facility] [id number] [place] [address] [id number] Jul, DM neuro manif type II E11.49 and Phantom pain R52 [facility] [address] [address] Jun, Onychomycosis B35.1 and DM neuro manif type II E11.49 [place] [address] [place] [address] [id number] Jun, DM neuro manif type II E11.49 ; Phantom pain R52 ; Essential hypertension I10 and Diabetes with neurological manifestations, type II or unspecified type, not stated as uncontrolled 250.60 [place] [address] [place] [address] [id number] Apr, DM neuro manif type II E11.49 ; Phantom pain R52 ; Essential hypertension I10 and Mild intermittent asthma without complication J45.20 [place] [address] [place] [address] [id number] Apr, Need for follow up care after discharge from healthcare facility Z92.89 and Wound of right lower extremity, subsequent encounter S81.801D [place] [address] [place] [address] [id number] Mar, Phantom pain R52 ; DM neuro manif type II E11.49 and Essential hypertension I10 [place] [address] [place] [address] [id number] Feb, DM neuro manif type II E11.49 ; Phantom pain R52 and Essential hypertension I10 [place] [address] [place] [address] [id number] Jan, Phantom pain R52 and DM neuro manif type II E11.49 [address] [place] [address] [id number] Dec, [place] [address] [place] [address] [id number] Dec, DM neuro manif type II E11.49 ; Phantom pain R52 ; Mild intermittent asthma without complication J45.20 and Essential hypertension I10 [facility] [address] [id number] [address] Dec, Onychomycosis B35.1 ; Xerosis of skin L85.3 and DM neuro manif type II E11.49 [address] [place] [address] [id number] Nov, Acquired absence of right leg below knee Z89.511 [place] [address] [place] [address] [id number] Nov, [place] [address] [place] [address] [id number] Nov, [place] [address] [place] [address] [id number] Sep, [place] [address] [place] [address] [id number] Sep, Diabetes type 2, uncontrolled E11.65 ; Leg wound, left, initial encounter S81.802A and Erectile disorder due to medical condition in male N52.1 [address] [place] [address] [id number] Sep, [address] [place] [address] [id number] Jul, [place] [address] [place] [address] [id number] Jul, [place] [address] [place] [address] [id number] Jul, [place] [address] [place] [address] [id number] Jul, 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 ; Varicose vein of leg I83.93 ; Diabetes type 2, uncontrolled E11.65 and Chronic pain G89.29 [address] [place] [address] [id number] Jul, [place] [address] [place] [address] [id number] Jul, Diabetes with neurological manifestations, type II or unspecified type, not stated as uncontrolled 250.60 [place] [address] [place] [address] [id number] Jul, [facility] [address] [address] [id number] [phone] Jul, [facility] [place] [id number] [place] [address] [id number] Jun, Diabetes type 2, uncontrolled E11.65 [facility] [place] [id number] [place] [address] [id number] Jun, Pain in right knee M25.561 ; Pain in left knee M25.562 ; Other chronic pain G89.29 and Primary osteoarthritis of both knees M17.0 [facility] [place] [id number] [place] [address] [id number] Apr, Diabetes type 2, uncontrolled E11.65 ; Puncture wound of foot, left, initial encounter S91.332A and Encounter for immunization Z23 [facility] [id number] [place] [address] [id number] Apr, [address] [place] [address] [place] [address] [id number] Apr, [facility] [id number] [place] [address] [id number] Feb, Acquired absence of right leg below knee Z89.511 [facility] [address] [place] [address] [id number] Feb, Acquired absence of right leg below knee Z89.511 [facility] [id number], [place] [id number] Feb, Diabetes type 2, uncontrolled E11.65 and Acquired absence of right leg below knee Z89.511 [facility] [id number], [place] [phone] Jan, [facility] [place] [id number], [place] [phone] Jan, [facility] [address] [address] Jan, [facility] [place] [address] [id number] [phone] Jan, [facility] [id number] [place] [address] [id number] Dec, [facility] [id number] [place] [address] [id number] Dec, Diabetes with neurological manifestations, type II or unspecified type, not stated as uncontrolled 250.60 and Open wound of foot except toe(s) alone, without mention of complication 892.0 [facility] [id number] [place] [address] [id number] Dec, [facility] [place] [address] [id number] Nov, [facility] [id number] [place] [address] [id number] Nov, Cellulitis of foot 682.7 [facility] [address] [id number] Oct, [facility] [address] [place] [address] [id number] Oct, Corneal abrasion 918.1 [facility] [id number] [place] [address] [id number] Oct, [facility] [id number] [place] [address] [id number] Oct, [facility] [address] [place] [address] [id number] August, [facility] [address] [place] [address] [id number] August, [facility] [address] [place] [address] [id number] August, [facility] [address] [place] [address] [id number] August, [facility] [address] [place] [address] [id number] August, Diabetes mellitus without mention of complication, type II or unspecified type, not stated as uncontrolled 250.00 [facility] [id number] [place] [address] Jul, [facility] [id number] [place] [address] Jul, [facility] [place] [facility] [address] [id number] [place] [address] Apr, [facility] [place] [facility] [address] [id number] [place] [address] Apr, [facility] [place] [facility] [address] [id number] [place] [address] Mar, [facility] [place] [facility] [address] [id number] [place] [address] Mar, [facility] [place] [facility] [address] [id number] [place] [address] Mar, [facility] [place] [facility] [address] [id number] [place] [address] Mar, [facility] [place] [facility] [address] [id number] [place] [address] Mar, [facility] [place] [facility] [address] [id number] [place] [address] Mar, [facility] [address] [facility] [id number] [id number] Mar, [facility] [place] [facility] [address] [id number] [place] [address] Mar, [facility] [place] [facility] [address] [id number] [place] [address] Mar, [facility] [place] [facility] [address] [id number] [place] [address] Mar, [facility] [place] [facility] [address] [id number] [place] [address] Mar, [facility] [place] [facility] [address] [id number] [place] [address] Mar, [facility] [place] [facility] [address] [id number] [place] [address] Mar, [facility] [address] [id number] [id number] Mar, [facility] [place] [facility] [address] [id number] [place] [address] Jan, [facility] [address] [id number] [place] [id number] Jan, [facility] [place] [facility] [address] [id number] [place] [address] Jan, [facility] [place] [facility] [address] [id number] [place] [address] Jan, [facility] [place] [facility] [address] [id number] [place] [address] Jan, [facility] [address] [id number] [place] [id number] Jan, [facility] [place] [facility] [address] [id number] [place] [address] Dec, [facility] [address] [facility] [id number] [place] [id number] Nov, [facility] [place] [facility] [address] [facility] [id number] [place] [address] Nov, [facility] [address] [id number] [place] [id number] Oct, [facility] [place] [facility] [address] [facility] [id number] [place] [address] Oct, [facility] [address] [facility] [id number][place] [id number] Oct, [facility] [place] [facility] [address] [facility] [id number] [place] [address] Oct, [facility] [place] [facility] [address] [id number] [place] [address] August, [facility] [place] [facility] [address] [facility] [id number] [place] [address] August, [facility] [place] [facility] [address] [facility] [id number] [place] [address] August, [facility] [place] [facility] [address] [id number] [address] August, [facility] [address] [id number] [place] [id number] Jul, [facility] [place] [facility] [address] [facility] [id number] [address] Jul, [facility] [address] [id number] [place] [id number] Jun, [facility] [place] [facility] [address] [facility] [id number][place] [address] Jun, [facility] [address] [id number] [place] [id number] Jun, [facility] [place] [facility] [address] [facility] [id number][place] [address] Jun, [facility] [address] [id number] [place] [id number] Jun, [facility] [place] [facility] [address] [address] Jun, [facility] [address] [facility] [id number] [place] [id number] Jun, [facility] [place] [facility] [address] [address] Jun, [facility] [address] [facility] [id number] [place] [id number] May, [facility] [place] [facility] [address] [id number] [address] May, [facility] [address] [facility] [id number][place] [id number] May, [facility] [place] [facility] [address] [id number] [address] May, [facility] [place] [facility] [address] [facility] [id number][place] [address] May, [facility] [place] [facility] [address] [id number] [address] May, [facility] [address] [id number] [place] [id number] May, [facility] [address] [facility] [id number] [address] May, [facility] [address] [id number] [place] [id number] May, [facility] [address] [facility] [id number][place] [address] May, [facility] [address] [facility] [id number][place] [address] Apr, [facility] [address] [facility] [id number] [address] Apr, [facility] [address] [id number][place] [id number] Apr, [facility] [address] [address] Apr, [facility] [address] [id number][place] [id number] Sep, [facility] [address] [facility] [id number][place] [address] Sep, [facility] [address] [id number][place] [id number] Sep, [facility] [address] [id number][place] [id number] Sep, [facility] [address] [facility] [id number] [address] Jun, [facility] [address] [id number] [place] [id number] Nov, [facility] [address] [id number] [place] [id number] Nov, [facility] [address] [id number] [place] [id number] Nov, [facility] [address] [id number] [place] [id number] Nov, [facility] [id number][place] [id number] Nov, [facility] [id number], [place] [id number] Nov, [facility] [id number], [place] [id number] Nov, [facility] [id number][place] [id number] Nov, [facility] [id number] [place] [id number] Nov, [facility] [id number][place] [id number] Sep, [facility] [id number] [place] [id number] Sep, [facility] [id number] [place] [id number] Sep, [facility] [id number], [place] [id number] Sep, [facility] [id number][place] [id number] August, [facility] [id number][place] [id number] August, [facility] [id number] [place] [id number] August, [facility] [id number][place] [id number] August, [facility] [id number] [address] Sep, IMMUNIZATIONS No Known Immunizations SOCIAL HISTORY Never Assessed REASON FOR VISIT Refill request PLAN OF CARE VITAL SIGNS MEDICATIONS Medication Instructions Dosage Frequency Start Date End Date Duration Status Sildenafil Citrate 20 mg Orally do not [...] History amputation right mid-calf/foot at [facility] 01/2015 Hospitalization History [facility] post op infection to right foot, amputations to mid-calf 01/2015 Hospitalization History [facility] [facility] In post-op 7 days, discharges with home health -02/2015 Hospitalization History [facility] ER visit for sore on right stump 04/2016 Hospitalization History [facility] wound on left lower leg, culture +for Strep G 12/2016
--- OUTSIDE RECORDS SUMMARY | 2018-10-31 17:45 | XMS REPORT ---
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 Active 166499014 Problem Venous insufficiency (chronic) (peripheral) I87.2 Active 52942031 Problem 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 Active 574708169 Problem Skin ulcer of left lower leg, limited to breakdown of skin L97.921 Active 47728329 Problem Erectile dysfunction, unspecified erectile dysfunction type N52.9 Active 210648275 Problem DM neuro manif type II E11.49 Active 04795950 Problem Acquired absence of right leg below knee Z89.511 Active 854750288 Problem Diabetes type 2, uncontrolled E11.65 Active 326458593 Problem Mild intermittent asthma without complication J45.20 Active 234037018 Problem Obstructive sleep apnea syndrome G47.33 Active 95433070 Problem Phantom pain R52 Active 983471796 Problem Cellulitis of left lower extremity L03.116 Active 795209039 Problem Essential hypertension I10 Active 11385999 Problem Acute pain of left shoulder M25.512 Active 85000154 ALLERGIES No Information ENCOUNTERS Encounter Location Date Diagnosis [facility] [address] [facility] [id number] [place] [address] Dec, [facility] [address] [facility] [id number] [place] [id number] Nov, [facility] [id number] [place] [id number] Oct, [facility] [id number] [place] [address] [id number] Oct, Diabetes type 2, uncontrolled E11.65 and Cellulitis of left lower extremity L03.116 [facility] [id number] [place] [address] [id number] Oct, Phantom pain R52 [place] [address] [address] Sep, Onychomycosis B35.1 ; Impaired circulation of left leg I99.9 and DM neuro manif type II E11.49 [facility] [id number] [place] [address] [id number] Sep, BMI 40.0-44.9, adult Z68.41 ; Skin ulcer of left lower leg, limited to breakdown of skin L97.921 ; Acute pain of left shoulder M25.512 ; DM neuro manif type II E11.49 ; Mild intermittent asthma without complication J45.20 and Phantom pain R52 [facility] [id number] [place] [address] [id number] Sep, Phantom pain R52 [facility] [id number] [place] [address] [id number] August, Phantom pain R52 [facility] [id number] [place] [address] [phone] August, Acquired absence of right leg below knee Z89.511 [facility] [id number] [place] [address] [id number] August, Acquired absence of right leg below knee Z89.511 [place] [address] [address] August, Diabetes type 2, uncontrolled E11.65 [facility] [address] [address] August, [place] [address] [address] August, 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 [id number] [place] [address] [id number] Jul, Skin ulcer of left lower leg, limited to breakdown of skin L97.9[address] [place] [id number] [place] [address] [id number] Jul, [place] [id number] [place] [address] [id number] Jul, BMI 40.0-44.9, adult Z68.41 ; Skin ulcer of left lower leg, limited to breakdown of skin L97.921 and DM neuro manif type II E11.49 [place] [address] [id number] [place] [address] Jul, [facility] [id number] [place] [address] [id number] Jul, [place] [id number] [place] [address] [id number] Jul, [place] [id number] [place] [address] [id number] Jun, Erectile dysfunction, unspecified erectile dysfunction type N52.9 [facility] [id number] [place] [address] Jun, [place] [id number] [place] [address] [id number] Jun, BMI 40.0-44.9, adult Z68.41 ; Diabetes type 2, uncontrolled E11.65 ; Phantom pain R52 ; Subluxation of right shoulder joint, sequela S43.001S and Erectile dysfunction, unspecified erectile dysfunction type N52.9 [facility] [address] [place] [address] Jun, DM neuro manif type II E11.49 ; Onychomycosis B35.1 and Hammertoe of left foot M20.42 [facility] [address] [facility] [id number] [address] Jun, 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 ; Essential hypertension I10 and Phantom pain R52 [address] [place] [address] [id number] Apr, Diabetes type 2, uncontrolled E11.65 ; Acquired absence of right leg below knee Z89.511 ; Essential hypertension I10 ; Reflux esophagitis K21.0 and Phantom pain R52 [place] [id number] [place] [address] [id number] Apr, BMI 40.0-44.9, adult Z68.41 and Wheelchair bound Z99.[address] [place] [address] [id number] Mar, [place] [id number] [place] [address] [id number] Mar, BMI 40.0-44.9, adult Z68.41 ; Diabetes type 2, uncontrolled E11.65 ; Mild intermittent asthma without complication J45.20 ; Phantom pain R52 ; Reflux esophagitis K21.0 and Essential hypertension I10 [facility] [address] [place] [address] [id number] Feb, Phantom pain R52 [place] [id number] [place] [address] [phone] Feb, Phantom pain R52 and Acute pain of left shoulder M25.512 [facility] [id number] [place] [address] [id number] Jan, Phantom pain R52 [facility] [id number] [place] [address] [id number] Jan, DM neuro manif type II E11.49 ; Cellulitis of left lower extremity L03.116 ; Obstructive sleep apnea syndrome G47.33 ; Thyroid disorder screen Z13.29 and Lipid screening Z13.220 [facility] [id number] [place] [address] [id number] Jan, [facility] [id number] [place] [address] [id number] Dec, DM neuro manif type II E11.49 ; Phantom pain R52 and Mild intermittent asthma without complication J45.20 [facility] [id number] [place] [address] [id number] Dec, Wound of left lower extremity, subsequent encounter S81.802D [facility] [id number] [place] [address] [id number] Nov, [facility] [id number] [place] [address] Nov, [facility] [id number] [place] [address] [id number] Nov, DM neuro manif type II E11.49 ; Mild intermittent asthma without complication J45.20 ; Essential hypertension I10 and Phantom pain R52 [facility] [id number] [place] [id number] Oct, Phantom pain R52 [facility] [id number] [place] [address] [phone] Sep, Phantom pain R52 ; DM neuro manif type II E11.49 and Essential hypertension I10 [facility] [id number] [place] [address] [phone] August, DM neuro manif type II E11.49 ; Phantom pain R52 and Essential hypertension I10 [facility] [id number] [place] [address] [id number] Jul, DM neuro manif type II E11.49 and Phantom pain R52 [facility] [id number] [place] [address] Jun, Onychomycosis B35.1 and DM neuro manif type II E11.49 [facility] [id number] [place] [address] [phone] Jun, DM neuro manif type II E11.49 ; Phantom pain R52 ; Essential hypertension I10 and Diabetes with neurological manifestations, type II or unspecified type, not stated as uncontrolled 250.60 [facility] [id number] [place] [address] [id number] Apr, DM neuro manif type II E11.49 ; Phantom pain R52 ; Essential hypertension I10 and Mild intermittent asthma without complication J45.20 [facility] [id number] [place] [address] [id number] Apr, Need for follow up care after discharge from healthcare facility Z92.89 and Wound of right lower extremity, subsequent encounter S81.801D [facility] [id number] [place] [address] [id number] Mar, Phantom pain R52 ; DM neuro manif type II E11.49 and Essential hypertension I10 [facility] [address] [place] [place] [id number] [place] [address] [id number] Feb, DM neuro manif type II E11.49 ; Phantom pain R52 and Essential hypertension I10 [facility] [id number] [place] [address] [id number] Jan, Phantom pain R52 and DM neuro manif type II E11.49 [facility] [id number] [place] [address] [id number] Dec, [place] [id number] [place] [address] [phone] Dec, DM neuro manif type II E11.49 ; Phantom pain R52 ; Mild intermittent asthma without complication J45.20 and Essential hypertension I10 [facility] [id number] [place] [address] Dec, Onychomycosis B35.1 ; Xerosis of skin L85.3 and DM neuro manif type II E11.49 [facility] [id number] [place] [phone] Nov, Acquired absence of right leg below knee Z89.511 [facility] [id number] [place] [address] [id number] Nov, [facility] [id number] [place] [address] [id number] Nov, [facility] [id number] [place] [address] [id number] Sep, [facility] [id number] [place] [address] [id number] Sep, Diabetes type 2, uncontrolled E11.65 ; Leg wound, left, initial encounter S81.802A and Erectile disorder due to medical condition in male N52.1 [facility] [id number] [place] [address] [id number] Sep, [facility] [id number] [place] [address] [id number] Jul, [facility] [id number] [place] [address] [id number] Jul, [facility] [id number] [place] [address] [id number] Jul, [facility] [id number] [place] [address] [id number] Jul, 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 ; Varicose vein of leg I83.93 ; Diabetes type 2, uncontrolled E11.65 and Chronic pain G89.29 [facility] [id number] [place] [address] [id number] Jul, [facility] [id number] [place] [address] [id number] Jul, Diabetes with neurological manifestations, type II or unspecified type, not stated as uncontrolled 250.60 [facility] [id number] [place] [address] [id number] Jul, [facility] [id number] [place] [address] [id number] Jul, [facility] [id number] [place] [address] [id number] Jun, Diabetes type 2, uncontrolled E11.65 [place] [id number] [place] [address] [id number] Jun, Pain in right knee M25.561 ; Pain in left knee M25.562 ; Other chronic pain G89.29 and Primary osteoarthritis of both knees M17.0 [place] [id number] [place] [address] [id number] Apr, Diabetes type 2, uncontrolled E11.65 ; Puncture wound of foot, left, initial encounter S91.332A and Encounter for immunization Z23 [place] [id number] [place] [address] [id number] Apr, [place] [id number] [place] [address] [id number] Apr, [place] [id number] [place] [address] [id number] Feb, Acquired absence of right leg below knee Z89.511 [place] [address] [place] [address] [id number] Feb, Acquired absence of right leg below knee Z89.511 [place] [address] [place] [address] [id number] Feb, Diabetes type 2, uncontrolled E11.65 and Acquired absence of right leg below knee Z89.511 [place] [id number] [place] [address] [id number] Jan, [place] [id number] [place] [address] [id number] Jan, [facility] [address] [id number] [address] Jan, [place] [id number] [place] [address] [id number] Jan, [facility] [id number] [id number] Dec, [address] [place] [address] [id number] Dec, Diabetes with neurological manifestations, type II or unspecified type, not stated as uncontrolled 250.60 and Open wound of foot except toe(s) alone, without mention of complication 892.0 [facility] [address] [id number] Dec, [facility] [id number] [place] [address] [id number] Nov, [facility] [address] [id number] Nov, Cellulitis of foot 682.7 [facility] [address] [id number] Oct, [facility] [address] [id number] Oct, Corneal abrasion 918.1 [facility] [address] [place] [address] [id number] Oct, [facility] [address] [id number] Oct, [facility] [id number] [place] [address] [id number] August, [facility] [id number] [place] [address] [id number] August, [facility] [id number] [place] [address] [id number] August, [facility] [id number] [place] [address] [phone] August, [facility] [id number] [place] [address] [id number] August, Diabetes mellitus without mention of complication, type II or unspecified type, not stated as uncontrolled 250.00 [facility] [id number] [place] [address] Jul, [facility] [address] [address] Jul, [facility] [id number] [place] [address] Apr, [facility] [address] [id number] [address] Apr, [facility] [address] [id number] [place] [address] Mar, [facility] [address] [id number] [place] [address] Mar, [facility] [address] [id number] [place] [address] Mar, [facility] [address] [id number] [place] [address] Mar, [facility] [address] [id number] [place] [address] Mar, [facility] [address] [id number] [place] [address] Mar, [facility] [address] [facility] [id number] [place] [id number] Mar, [facility] [address] [id number] [place] [address] Mar, [facility] [address] [id number] [place] [address] Mar, [facility] [address] [id number] [place] [address] Mar, [facility] [place] [facility] [address] [id number] [place] [address] Mar, [facility] [place] [facility] [address] [id number] [address] Mar, [facility] [place] [facility] [address] [id number] [place] [address] Mar, [facility] [address] [id number] [place] [id number] Mar, [facility] [place] [facility] [address] [id number] [place] [address] Jan, [facility] [address] [id number] [place] [id number] Jan, [facility] [address] [id number] [place] [address] Jan, [facility] [place] [facility] [address] [id number] [place] [address] Jan, [facility] [place] [facility] [address] [id number], [place] [address] Jan, [facility] [address] [facility] [id number] [place] [id number] Jan, [facility] [place] [facility] [address] [id number] [place] [address] Dec, [facility] [address] [facility] [id number] [place] [id number] Nov, [facility] [place] [facility] [address] [facility] [id number], [place] [address] Nov, [facility] [address] [facility] [id number] [place] [id number] Oct, [facility] [place] [facility] [address] [facility] [id number] [place] [address] Oct, [facility] [address] [facility] [id number] [place] [id number] Oct, [facility] [place] [facility] [address] [facility] [id number] [address] Oct, [facility] [place] [facility] [address] [id number][place] [address] August, [facility] [place] [facility] [address] [facility] [id number] [place] [address] August, [facility] [place] [facility] [address] [facility] [id number] [place] [address] August, [facility] [place] [facility] [address] [facility] [id number], [place] [address] August, [facility] [address] [facility] [id number] [place] [id number] Jul, [facility] [place] [facility] [address] [facility] [id number] [place] [address] Jul, [facility] [address] [facility] [id number] [place] [id number] Jun, [facility] [place] [facility] [address] [facility] [id number] [place] [address] Jun, [facility] [address] [facility] [id number] [place] [id number] Jun, [facility] [place] [facility] [address] [facility] [id number] [place] [address] Jun, [facility] [address] [facility] [id number] [place] [id number] Jun, [facility] [place] [facility] [address] [id number] [place] [address] Jun, [facility] [address] [id number] [place] [id number] Jun, [facility] [place] [facility] [address] [id number] [address] Jun, [facility] [address] [facility] [id number] [place] [id number] May, [facility] [place] [facility] [address] [id number] [place] [address] May, [facility] [address] [facility] [id number] [place] [id number] May, [facility] [place] [facility] [address] [facility] [id number] [place] [address] May, [facility] [place] [facility] [address] [facility] [id number] [place] [address] May, [facility] [place] [facility] [address] [facility] [id number] [place] [address] May, [facility] [address] [facility] [id number] [place] [id number] May, [facility] [place] [facility] [address] [facility] [id number] [address] May, [facility] [address] [id number] [place] [id number] May, [facility] [address] [facility] [id number], [place] [address] May, [facility] [address] [facility] [id number][place] [address] Apr, [facility] [address] [facility] [id number][place] [address] Apr, [facility] [address] [id number] [place] [id number] Apr, [facility] [address] [facility] [id number][place] [address] Apr, [facility] [address] [id number] [place] [id number] Sep, [facility] [address] [facility] [id number] [address] Sep, [facility] [address] [id number] [place] [id number] Sep, [facility] [address] [id number] [place] [id number] Sep, [facility] [address] [facility] [id number][place] [address] Jun, [facility] [address] [id number] [place] [id number] Nov, [facility] [address] [id number] [place] [id number] Nov, [facility] [address] [id number] [place] [id number] Nov, [facility] [address] [id number] [place] [id number] Nov, [facility] [address] [id number] [place] [id number] Nov, [facility] [address] [id number] [place] [id number] Nov, [facility] [id number] [place] [id number] Nov, [facility] [id number] [place] [id number] Nov, [facility] [id number] [place] [id number] Nov, [facility] [id number] [place] [id number] Sep, [facility] [id number] [place] [id number] Sep, [facility] [id number] [place] [id number] Sep, [facility] [id number] [place] [id number] Sep, [facility] [id number] [place] [id number] August, [facility] [id number] [place] [id number] August, [facility] [id number] [place] [id number] August, [facility] [id number] [place] [id number] August, [facility] [address] [id number] [address] Sep, IMMUNIZATIONS No Known Immunizations SOCIAL HISTORY Never Assessed REASON FOR VISIT 06/21/17-medication change due to insurance PLAN OF CARE VITAL SIGNS MEDICATIONS Medication Instructions Dosage Frequency Start Date End Date Duration Status Farxiga 5 mg Orally Once a day in the morning 1 tablet Jun, Active NovoLog 100 UNIT/ML Subcutaneous 3 times a day, E11.65 60 units Jun, Active RESULTS No Results PROCEDURES No [...] History Via [facility] post-op 7 days, discharges with home health -02/2015 Hospitalization History [facility] ER visit for sore on right stump 04/2016 Hospitalization History [facility] wound on left lower leg, culture +for Strep G 12/2016
--- OUTSIDE RECORDS SUMMARY | 2018-10-31 17:45 | XMS REPORT ---
Author Author JERRICA MENDEZ [facility] Address [address] [place] [address] Care Team Providers Care Advertising Rep Name Role Phone JERRICA MENDEZ Unavailable PROBLEMS Type Condition ICD9-CM Code YGR12-CA Code Onset Dates Condition Status SNOMED Code Problem Reflux esophagitis K21.0 Active 276883111 Problem Wheelchair bound Z99.3 Active 936081974 Problem Hammertoe of left foot M20.42 Active 977479176 Problem Varicose veins of left lower extremity with ulcer other part of lower leg I83.028 Active 12896675 Problem 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 Active 221739329 Problem Venous insufficiency (chronic) (peripheral) I87.2 Active 55527783 Problem 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 Active 765826843 Problem Skin ulcer of left lower leg, limited to breakdown of skin L97.921 Active 75441473 Problem Erectile dysfunction, unspecified erectile dysfunction type N52.9 Active 409734150 Problem DM neuro manif type II E11.49 Active 15247649 Problem Acquired absence of right leg below knee Z89.511 Active 748749253 Problem Diabetes type 2, uncontrolled E11.65 Active 576630567 Problem Mild intermittent asthma without complication J45.20 Active 412093187 Problem Obstructive sleep apnea syndrome G47.33 Active 97633282 Problem Phantom pain R52 Active 313791107 Problem Cellulitis of left lower extremity L03.116 Active 299964831 Problem Essential hypertension I10 Active 49598413 Problem Acute pain of left shoulder M25.512 Active 87851739 ALLERGIES No Information ENCOUNTERS Encounter Location Date Diagnosis [facility] [address] [facility] [id number] [place] [address] Dec, [facility] [address] [facility] [id number] [id number] Nov, [facility] [id number] [id number] Oct, [facility] [id number] [place] [address] [id number] Oct, Diabetes type 2, uncontrolled E11.65 and Cellulitis of left lower extremity L03.116 [facility] [id number] [place] [address] [id number] Oct, Phantom pain R52 [place] [address] [address] Sep, Onychomycosis B35.1 ; Impaired circulation of left leg I99.9 and DM neuro manif type II E11.49 [facility] [id number] [place] [address] [id number] Sep, BMI 40.0-44.9, adult Z68.41 ; Skin ulcer of left lower leg, limited to breakdown of skin L97.921 ; Acute pain of left shoulder M25.512 ; DM neuro manif type II E11.49 ; Mild intermittent asthma without complication J45.20 and Phantom pain R52 [facility] [id number] [place] [address] [id number] Sep, Phantom pain R52 [facility] [id number] [place] [address] [id number] August, Phantom pain R52 [facility] [id number] [place] [address] [id number] August, Acquired absence of right leg below knee Z89.511 [facility] [id number] [place] [address] [id number] August, Acquired absence of right leg below knee Z89.511 [place] [address] [address] August, Diabetes type 2, uncontrolled E11.65 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 and Acquired absence of right leg below knee Z89.511 [facility] [address] [place], [place] [address] [id number] [place] [address] August, [facility] [id number] [place] [address] [id number] Jul, Skin ulcer of left lower leg, limited to breakdown of skin L97.921 [place] [id number] [place] [address] [id number] Jul, [place] [id number] [place] [address] [id number] Jul, BMI 40.0-44.9, adult Z68.41 ; Skin ulcer of left lower leg, limited to breakdown of skin L97.921 and DM neuro manif type II E11.49 [place] [address] [id number] [place] [address] Jul, [facility] [id number] [place] [address] [id number] Jul, [place] [id number] [place] [address] [id number] Jul, [place] [id number] [place] [address] [id number] Jun, Erectile dysfunction, unspecified erectile dysfunction type N52.9 [facility] [id number] [place] [address] Jun, [place] [id number] [place] [address] [id number] Jun, BMI 40.0-44.9, adult Z68.41 ; Diabetes type 2, uncontrolled E11.65 ; Phantom pain R52 ; Subluxation of right shoulder joint, sequela S43.001S and Erectile dysfunction, unspecified erectile dysfunction type N52.9 [facility] [address] [place] [address] Jun, DM neuro manif type II E11.49 ; Onychomycosis B35.1 and Hammertoe of left foot M20.42 [facility] [address] [facility] [id number] [address] Jun, [facility] [address] [id number] Jun, DM neuro manif type II E11.[address] [id number] [phone] Jun, DM neuro manif type II E11.49 [address] [place] [address] [id number] May, DM neuro manif type II E11.49 ; Venous insufficiency (chronic) (peripheral) I87.2 ; 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 ; Essential hypertension I10 and Phantom pain R52 [address] [place] [address] [id number] Apr, Diabetes type 2, uncontrolled E11.65 ; Acquired absence of right leg below knee Z89.511 ; Essential hypertension I10 ; Reflux esophagitis K21.0 and Phantom pain R52 [place] [id number] [place] [address] [id number] Apr, BMI 40.0-44.9, adult Z68.41 and Wheelchair bound Z99.3 [address] [place] [address] [id number] Mar, [place] [id number] [place] [address] [id number] Mar, BMI 40.0-44.9, adult Z68.41 ; Diabetes type 2, uncontrolled E11.65 ; Mild intermittent asthma without complication J45.20 ; Phantom pain R52 ; Reflux esophagitis K21.0 and Essential hypertension I10 [facility] [address] [place] [address] [id number] Feb, Phantom pain R52 [place] [id number] [place] [address] [id number] Feb, Phantom pain R52 and Acute pain of left shoulder M25.512 [facility] [id number] [place] [address] [id number] Jan, Phantom pain R52 [facility] [id number] [place] [address] [id number] Jan, DM neuro manif type II E11.49 ; Cellulitis of left lower extremity L03.116 ; Obstructive sleep apnea syndrome G47.33 ; Thyroid disorder screen Z13.29 and Lipid screening Z13.220 [facility] [id number] [place] [address] [id number] Jan, [facility] [id number] [place] [address] [id number] Dec, DM neuro manif type II E11.49 ; Phantom pain R52 and Mild intermittent asthma without complication J45.20 [facility] [id number] [place] [address] [id number] Dec, Wound of left lower extremity, subsequent encounter S81.802D [facility] [id number] [place] [address] [id number] Nov, [facility] [id number] [place] [address] Nov, [facility] [id number] [place] [address] [id number] Nov, DM neuro manif type II E11.49 ; Mild intermittent asthma without complication J45.20 ; Essential hypertension I10 and Phantom pain R52 [facility] [id number], [place] [phone] Oct, Phantom pain R52 [facility] [id number] [place] [address] [id number] Sep, Phantom pain R52 ; DM neuro manif type II E11.49 and Essential hypertension I10 [facility] [id number] [place] [address] [phone] August, DM neuro manif type II E11.49 ; Phantom pain R52 and Essential hypertension I10 [facility] [id number] [place] [address] [id number] Jul, DM neuro manif type II E11.49 and Phantom pain R52 [facility] [id number] [place] [address] Jun, Onychomycosis B35.1 and DM neuro manif type II E11.49 [facility] [id number] [place] [address] [id number] Jun, DM neuro manif type II E11.49 ; Phantom pain R52 ; Essential hypertension I10 and Diabetes with neurological manifestations, type II or unspecified type, not stated as uncontrolled 250.60 [facility] [id number] [place] [address] [id number] Apr, DM neuro manif type II E11.49 ; Phantom pain R52 ; Essential hypertension I10 and Mild intermittent asthma without complication J45.20 [facility] [id number] [place] [address] [id number] Apr, Need for follow up care after discharge from healthcare facility Z92.89 and Wound of right lower extremity, subsequent encounter S81.801D [facility] [id number] [place] [address] [id number] Mar, Phantom pain R52 ; DM neuro manif type II E11.49 and Essential hypertension I10 [facility] [id number] [place] [address] [id number] Feb, DM neuro manif type II E11.49 ; Phantom pain R52 and Essential hypertension I10 [facility] [id number] [place] [address] [id number] Jan, Phantom pain R52 and DM neuro manif type II E11.49 [facility] [id number] [place] [address] [id number] Dec, [place] [id number] [place] [address] [phone] Dec, DM neuro manif type II E11.49 ; Phantom pain R52 ; Mild intermittent asthma without complication J45.20 and Essential hypertension I10 [facility] [id number] [place] [address] Dec, Onychomycosis B35.1 ; Xerosis of skin L85.3 and DM neuro manif type II E11.49 [facility] [id number] [place] [phone] Nov, Acquired absence of right leg below knee Z89.511 [facility] [id number] [place] [address] [id number] Nov, [facility] [id number] [place] [address] [id number] Nov, [facility] [id number] [place] [address] [id number] Sep, [facility] [id number] [place] [address] [id number] Sep, Diabetes type 2, uncontrolled E11.65 ; Leg wound, left, initial encounter S81.802A and Erectile disorder due to medical condition in male N52.1 [facility] [id number] [place] [address] [id number] Sep, [facility] [id number] [place] [address] [id number] Jul, [facility] [id number] [place] [address] [id number] Jul, [facility] [id number] [place] [address] [id number] Jul, [facility] [id number] [place] [address] [id number] Jul, 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 ; Varicose vein of leg I83.93 ; Diabetes type 2, uncontrolled E11.65 and Chronic pain G89.29 [facility] [id number] [place] [address] [id number] Jul, [facility] [id number] [place] [address] [id number] Jul, Diabetes with neurological manifestations, type II or unspecified type, not stated as uncontrolled 250.60 [facility] [id number] [place] [address] [id number] Jul, [facility] [id number] [place] [address] [id number] Jul, [facility] [id number] [place] [address] [id number] Jun, Diabetes type 2, uncontrolled E11.65 [place] [id number] [place] [address] [id number] Jun, Pain in right knee M25.561 ; Pain in left knee M25.562 ; Other chronic pain G89.29 and Primary osteoarthritis of both knees M17.0 [place] [address] [place] [address] [id number] Apr, Diabetes type 2, uncontrolled E11.65 ; Puncture wound of foot, left, initial encounter S91.332A and Encounter for immunization Z23 [place] [id number] [place] [address] [id number] Apr, [place] [address] [place] [address] [id number] Apr, [place] [address] [place] [address] [id number] Feb, Acquired absence of right leg below knee Z89.511 [place] [id number] [place] [address] [id number] Feb, Acquired absence of right leg below knee Z89.511 [place] [address] [place] [address] [id number] Feb, Diabetes type 2, uncontrolled E11.65 and Acquired absence of right leg below knee Z89.511 [place] [id number] [place] [address] [id number] Jan, [place] [id number] [place] [address] [id number] Jan, [facility] [address] [id number] [address] Jan, [place] [id number] [place] [address] [id number] Jan, [facility] [id number] [id number] Dec, [address] [place] [address] [id number] Dec, Diabetes with neurological manifestations, type II or unspecified type, not stated as uncontrolled 250.60 and Open wound of foot except toe(s) alone, without mention of complication 892.0 [facility] [address] [id number] Dec, [facility] [id number] [place] [address] [id number] Nov, [facility] [place] [address] [id number] Nov, Cellulitis of foot 682.7 [facility] [address] [id number] Oct, [facility] [place] [address] [id number] Oct, Corneal abrasion 918.1 [facility] [id number] [place] [address] [id number] Oct, [facility] [place] [facility] [address] [id number] Oct, [facility] [id number] [place] [address] [id number] August, [facility] [id number] [place] [address] [id number] August, [facility] [id number] [place] [address] [id number] August, [facility] [id number] [place] [address] [id number] August, [facility] [id number] [place] [address] [id number] August, Diabetes mellitus without mention of complication, type II or unspecified type, not stated as uncontrolled 250.00 [facility] [id number] [place] [address] Jul, [facility] [address] [address] Jul, [facility] [id number] [place] [phone] Apr, [facility] [address] [place] [id number] [address] Apr, [facility] [address] [id number] [place] [address] Mar, [facility] [address] [id number] [place] [address] Mar, [facility] [address] [id number] [place] [address] Mar, [facility] [address] [id number] [place] [address] Mar, [facility] [address] [id number] [place] [address] Mar, [facility] [address] [id number] [place] [address] Mar, [facility] [address] [facility] [id number] [id number] Mar, [facility] [address] [id number] [place] [address] Mar, [facility] [address] [id number] [place] [address] Mar, [facility] [address] [id number] [place] [address] Mar, [facility] [place] [facility] [address] [id number] [place] [address] Mar, [facility] [place] [facility] [address] [id number] [address] Mar, [facility] [place] [facility] [address] [id number] [place] [address] Mar, [facility] [address] [id number] [id number] Mar, [facility] [place] [facility] [address] [id number] [place] [address] Jan, [facility] [address] [id number] [id number] Jan, [facility] [address] [id number] [place] [address] Jan, [facility] [place] [facility] [address] [id number] [place] [address] Jan, [facility] [place] [facility] [address] [id number] [place] [address] Jan, [facility] [address] [facility] [id number][place] [id number] Jan, [facility] [place] [facility] [address] [id number] [place] [address] Dec, [facility] [address] [facility] [id number], [place] [id number] Nov, [facility] [place] [facility] [address] [facility] [id number] [place] [address] Nov, [facility] [address] [facility] [id number][place] [id number] Oct, [facility] [place] [facility] [address] [facility] [id number] [place] [address] Oct, [facility] [address] [facility] [id number][place] [id number] Oct, [facility] [place] [facility] [address] [facility] [id number] [place] [address] Oct, [facility] [place] [facility] [address] [id number] [place] [address] August, [facility] [place] [facility] [address] [facility] [id number] [place] [address] August, [facility] [place] [facility] [address] [facility] [id number] [place] [address] August, [facility] [place] [facility] [address] [facility] [id number] [place] [address] August, [facility] [address] [facility] [id number][place] [id number] Jul, [facility] [place] [facility] [address] [facility] [id number] [place] [address] Jul, [facility] [address] [facility] [id number] [place] [id number] Jun, [facility] [place] [facility] [address] [facility] [id number] [place] [address] Jun, [facility] [address] [facility] [id number] [place] [id number] Jun, [facility] [place] [facility] [address] [facility] [id number] [place] [address] Jun, [facility] [address] [facility] [id number] [place] [id number] Jun, [facility] [place] [facility] [address] [id number] [address] Jun, [facility] [address] [id number] [place] [id number] Jun, [facility] [place] [facility] [address] [id number] [address] Jun, [facility] [address] [facility] [id number] [place] [id number] May, [facility] [place] [facility] [address] [id number] [address] May, [facility] [address] [facility] [id number] [id number] May, [facility] [place] [facility] [address] [facility] [id number] [place] [address] May, [facility] [place] [facility] [address] [facility] [id number] [place] [address] May, [facility] [place] [facility] [address] [facility] [id number] [place] [address] May, [facility] [address] [facility] [id number] [place] [id number] May, [facility] [place] [facility] [address] [facility] [id number] [address] May, [facility] [address] [id number] [place] [id number] May, [facility] [address] [facility] [id number] [address] May, [facility] [address] [facility] [id number] [place] [address] Apr, [facility] [address] [facility] [id number] [place] [address] Apr, [facility] [address] [id number] [id number] Apr, [facility] [address] [facility] [id number] [address] Apr, [facility] [address] [id number] [id number] Sep, [facility] [address] [facility] [id number] [place] [address] Sep, [facility] [address] [address] [id number][place] [id number] Sep, [facility] [address] [id number][place] [id number] Sep, [facility] [address] [facility] [id number] [address] Jun, [facility] [address] [id number][place] [id number] Nov, [facility] [address] [id number] [place] [id number] Nov, [facility] [address] [id number] [place] [id number] Nov, [facility] [address] [id number] [place] [id number] Nov, [facility] [address] [id number] [place] [id number] Nov, [facility] [address] [id number][place] [id number] Nov, [facility] [id number][place] [id number] Nov, [facility] [id number][place] [id number] Nov, [facility] [place] [id number][place] [id number] Nov, [facility] [place] [id number], [place] [id number] Sep, [facility] [place] [facility] [id number][place] [id number] Sep, [facility] [place] [facility] [id number][place] [id number] Sep, [facility] [place] [facility] [id number], [place] [id number] Sep, [facility] [id number], [place] [id number] August, [facility] [id number], [place] [id number] August, [facility] [id number], [place] [id number] August, [facility] [id number], [place] [id number] August, [facility] [address] [id number] [address] Sep, IMMUNIZATIONS No Known Immunizations SOCIAL HISTORY Never Assessed REASON FOR VISIT 1 wk f/u DM Ed PLAN OF CARE VITAL [...] Surgical History amputation right mid-calf/foot at [facility] 01/2015 Hospitalization History Yana Cedeno post op infection to right foot, amputations to mid-calf 01/2015 Hospitalization History [facility] In post-op 7 days, discharges with home health -02/[address] [facility] ER visit for sore on right stump 04/2016 Hospitalization History [facility] ER wound on left lower leg, culture +for Strep G 12/2016
--- OUTSIDE RECORDS SUMMARY | 2018-10-31 17:46 | XMS REPORT ---
Author Author JERRICA MENDEZ [facility] Address [address] [place] [address] Care Team Providers Care Clinical Care Leader Name Role Phone JERRICA MENDEZ Unavailable PROBLEMS Type Condition ICD9-CM Code SZU40-KP Code Onset Dates Condition Status SNOMED Code Problem Reflux esophagitis K21.0 Active 822761108 Problem Wheelchair bound Z99.3 Active 878959105 Problem Hammertoe of left foot M20.42 Active 548638531 Problem Varicose veins of left lower extremity with ulcer other part of lower leg I83.028 Active 41508604 Problem Depressive disorder, not elsewhere classified 311 Active 62666264 Problem 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 Active 268960701 Problem Unspecified hereditary and idiopathic peripheral neuropathy 356.9 Active 704061456 Problem Reflux esophagitis 530.11 Active 586629955 Problem Venous insufficiency (chronic) (peripheral) I87.2 Active 71529698 Problem 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 Active 193703786 Problem Skin ulcer of left lower leg, limited to breakdown of skin L97.921 Active 79371997 Problem Erectile dysfunction, unspecified erectile dysfunction type N52.9 Active 663600870 Problem DM neuro manif type II E11.49 Active 74606282 Problem Acquired absence of right leg below knee Z89.511 Active 871931765 Problem Other and unspecified hyperlipidemia 272.4 Active 30546253 Problem Diabetes type 2, uncontrolled E11.65 Active 897012113 Problem Mild intermittent asthma without complication J45.20 Active 446638303 Problem Obstructive sleep apnea syndrome G47.33 Active 23817164 Problem Phantom pain R52 Active 216957461 Problem Cellulitis of left lower extremity L03.116 Active 576313328 Problem Essential hypertension I10 Active 27523015 Problem Acute pain of left shoulder M25.512 Active 24823788 ALLERGIES No Information ENCOUNTERS Encounter Location Date Diagnosis [place] [address], [place] [address] Sep, [place] [id number] [place] [address] [phone] Sep, [place] [id number] [place] [address] [phone] August, BMI 40.0-44.9, adult Z68.41 ; 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 and Acquired absence of right leg below knee Z89.[address] [id number] [place] [address] August, [place] [id number] [place] [address] [id number] Jul, Skin ulcer of left lower leg, limited to breakdown of skin L97.921 [place] [id number] [place] [address] [id number] Jul, [place] [id number] [place] [address] [id number] Jul, BMI 40.0-44.9, adult Z68.41 ; Skin ulcer of left lower leg, limited to breakdown of skin L97.921 and DM neuro manif type II E11.49 [place] [address] [place] [id number] [place] [address] Jul, [address] [place] [address] [phone] Jul, [place] [id number] [place] [address] [phone] Jul, [place] [id number] [place] [address] [phone] Jun, Erectile dysfunction, unspecified erectile dysfunction type N52.9 [place] [address] [place] [id number] [place] [address] Jun, [address] [place] [address] [phone] Jun, BMI 40.0-44.9, adult Z68.41 ; Diabetes type 2, uncontrolled E11.65 ; Phantom pain R52 ; Subluxation of right shoulder joint, sequela S43.001S and Erectile dysfunction, unspecified erectile dysfunction type N52.9 [facility] [address], [place] [address] Jun, DM neuro manif type II E11.49 ; Onychomycosis B35.1 and Hammertoe of left foot M20.42 [facility] [address], [place] [address] Jun, [address] [id number] [id number] Jun, DM neuro manif type II E11.[address] [id number] [id number] Jun, DM neuro manif type II E11.49 [address] [place] [address] [id number] May, DM neuro manif type II E11.49 ; Venous insufficiency (chronic) (peripheral) I87.2 ; 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 ; Essential hypertension I10 and Phantom pain R52 [address] [place] [address] [id number] Apr, Diabetes type 2, uncontrolled E11.65 ; Acquired absence of right leg below knee Z89.511 ; Essential hypertension I10 ; Reflux esophagitis K21.0 and Phantom pain R52 [address] [place] [address] [id number] Apr, BMI 40.0-44.9, adult Z68.41 and Wheelchair bound Z99.3 [address] [place] [address] [id number] Mar, [place] [id number] [place] [address] [phone] Mar, BMI 40.0-44.9, adult Z68.41 ; Diabetes type 2, uncontrolled E11.65 ; Mild intermittent asthma without complication J45.20 ; Phantom pain R52 ; Reflux esophagitis K21.0 and Essential hypertension I10 [facility] [id number] [place] [address] [id number] Feb, Phantom pain R52 [facility] [address] [place] [id number] [place] [address] [phone] Feb, Phantom pain R52 and Acute pain of left shoulder M25.512 [facility] [address] [id number] Jan, Phantom pain R52 [facility] [address] [id number] Jan, DM neuro manif type II E11.49 ; Cellulitis of left lower extremity L03.116 ; Obstructive sleep apnea syndrome G47.33 ; Thyroid disorder screen Z13.29 and Lipid screening Z13.220 [facility] [address] [place] [id number] [place] [address] [phone] Jan, [place] [address] [id number] Dec, DM neuro manif type II E11.49 ; Phantom pain R52 and Mild intermittent asthma without complication J45.20 [facility] [address] [place] [address] [id number] [place] [address] [id number] Dec, Wound of left lower extremity, subsequent encounter S81.802D [facility] [address] [address] [id number] [place] [address] [id number] Nov, [facility] [address] [place] [id number] [place] [address] Nov, [facility] [address] [place] [address] [id number] [place] [address] [id number] Nov, DM neuro manif type II E11.49 ; Mild intermittent asthma without complication J45.20 ; Essential hypertension I10 and Phantom pain R52 [place] [id number] [place] [address] [phone] Oct, Phantom pain R52 [facility] [address] [place] [address] [id number] [place] [address] [phone] Sep, Phantom pain R52 ; DM neuro manif type II E11.49 and Essential hypertension I10 [facility] [address] [place] [address] [id number] [phone] August, DM neuro manif type II E11.49 ; Phantom pain R52 and Essential hypertension I10 [facility] [id number] [place] [address] [id number] Jul, DM neuro manif type II E11.49 and Phantom pain R52 [facility] [address], [place] [address] Jun, Onychomycosis B35.1 and DM neuro manif type II E11.49 [facility] [id number] [place] [address] [id number] Jun, DM neuro manif type II E11.49 ; Phantom pain R52 ; Essential hypertension I10 and Diabetes with neurological manifestations, type II or unspecified type, not stated as uncontrolled 250.60 [facility] [id number] [place] [address] [id number] Apr, DM neuro manif type II E11.49 ; Phantom pain R52 ; Essential hypertension I10 and Mild intermittent asthma without complication J45.20 [facility] [id number] [place] [address] [id number] Apr, Need for follow up care after discharge from healthcare facility Z92.89 and Wound of right lower extremity, subsequent encounter S81.801D [facility] [id number] [place] [address] [phone] Mar, Phantom pain R52 ; DM neuro manif type II E11.49 and Essential hypertension I10 [facility] [id number] [place] [address] [id number] Feb, DM neuro manif type II E11.49 ; Phantom pain R52 and Essential hypertension I10 [facility] [id number] [place] [address] [id number] Jan, Phantom pain R52 and DM neuro manif type II E11.49 [facility] [id number] [place] [address] [id number] Dec, [facility] [id number] [place] [address] [id number] Dec, DM neuro manif type II E11.49 ; Phantom pain R52 ; Mild intermittent asthma without complication J45.20 and Essential hypertension I10 [facility] [address], [place] [address] Dec, Onychomycosis B35.1 ; Xerosis of skin L85.3 and DM neuro manif type II E11.49 [facility] [id number] [place] [address] [id number] Nov, Acquired absence of right leg below knee Z89.511 [facility] [address] [place] [id number] [place] [address] [id number] Nov, [place] [id number] [place] [address] [id number] Nov, [place] [address] [place] [address] [id number] Sep, [place] [id number] [place] [address] [id number] Sep, Diabetes type 2, uncontrolled E11.65 ; Leg wound, left, initial encounter S81.802A and Erectile disorder due to medical condition in male N52.1 [facility] [address] [place] [address] [id number] Sep, [place] [id number] [place] [address] [id number] Jul, [place] [id number] [place] [address] [id number] Jul, [place] [id number] [place] [address] [id number] Jul, [place] [id number] [place] [address] [id number] Jul, 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 ; Varicose vein of leg I83.93 ; Diabetes type 2, uncontrolled E11.65 and Chronic pain G89.29 [place] [id number] [place] [address] [id number] Jul, [place] [id number] [place] [address] [id number] Jul, Diabetes with neurological manifestations, type II or unspecified type, not stated as uncontrolled 250.60 [facility] [address] [id number] [phone] Jul, [facility] [id number] [place] [address] [phone] Jul, [facility] [id number] [place] [address] [id number] Jun, Diabetes type 2, uncontrolled E11.65 [facility] [address] [place] [address] [id number] Jun, Pain in right knee M25.561 ; Pain in left knee M25.562 ; Other chronic pain G89.29 and Primary osteoarthritis of both knees M17.0 [address] [place] [address] [id number] Apr, Diabetes type 2, uncontrolled E11.65 ; Puncture wound of foot, left, initial encounter S91.332A and Encounter for immunization Z23 [address] [place] [address] [id number] Apr, [place] [address] [place] [address] [id number] [place] [address] [id number] Apr, [facility] [id number] [place] [id number] Feb, Acquired absence of right leg below knee Z89.511 [place] [id number] [place] [address] [id number] Feb, Acquired absence of right leg below knee Z89.511 [address] [id number] Feb, Diabetes type 2, uncontrolled E11.65 and Acquired absence of right leg below knee Z89.511 [facility] [address] [place] [id number] [place] [id number] Jan, [address] [phone] Jan, [facility] [address] [place] [id number], [place] [address] Jan, [facility] [address] [place] [id number] [place] [phone] Jan, [facility] [address] [id number] [id number] Dec, [facility] [id number] [place] [address] [id number] Dec, Diabetes with neurological manifestations, type II or unspecified type, not stated as uncontrolled 250.60 and Open wound of foot except toe(s) alone, without mention of complication 892.0 [facility] [address] [place] [id number] [place] [address] [id number] Dec, [facility] [address] [place] [address] [id number] [place] [address] [phone] Nov, [facility] [address] [place] [address] [id number] [place] [address] [id number] Nov, Cellulitis of foot 682.7 [facility] [address] [place] [id number] [place] [address] [id number] Oct, [place] [address] [place] [id number] [place] [address] [phone] Oct, Corneal abrasion 918.1 [facility] [id number] [place] [address] [phone] Oct, [facility] [id number] [place] [address] [id number] Oct, [facility] [address] [place] [id number] [place] [address] [id number] August, [facility] [id number] [place] [address] [id number] August, [facility] [address] [place] [id number] [place] [address] [id number] August, [facility] [id number] [place] [phone] August, [facility] [id number] [place] [address] [id number] August, Diabetes mellitus without mention of complication, type II or unspecified type, not stated as uncontrolled 250.00 [facility] [address] [place] [id number] [place] [phone] Jul, [facility] [address] [address] Jul, [facility] [address] [id number] [place] [address] Apr, [facility] [place] [facility] [address] [facility] [id number] [place] [address] Apr, [facility] [place] [facility] [address] [facility] [id number] [place] [address] Mar, [facility] [place] [facility] [address] [id number] [place] [address] Mar, [facility] [place] [facility] [address] [facility] [id number] [place] [address] Mar, [facility] [place] [facility] [address] [facility] [id number] [place] [address] Mar, [facility] [address] [place] [id number] [address] Mar, [facility] [place] [facility] [address] [facility] [id number] [place] [address] Mar, [facility] [address] [id number] [phone] Mar, [facility] [address] [facility] [id number] [place] [address] Mar, [facility] [place] [facility] [address] [place] [address] [id number], [place] [address] Mar, [facility] [place] [facility] [address] [id number], [place] [address] Mar, [facility] [place] [facility] [address] [id number] [place] [address] Mar, [facility] [place] [facility] [address] [facility] [id number] [place] [address] Mar, [facility] [place] [facility] [address] [facility] [id number], [place] [address] Mar, [facility] [address] [facility] [id number] [place] [id number] Mar, [facility] [address] [id number] [place] [address] Jan, [facility] [address] [facility] [id number] [place] [id number] Jan, [facility] [place] [facility] [address] [facility] [id number] [place] [address] Jan, [facility] [place] [facility] [address] [facility] [id number] [place] [address] Jan, [facility] [place] [facility] [address] [id number] [place] [address] Jan, [facility] [address] [facility] [id number] [place] [id number] Jan, [facility] [place] [facility] [address] [facility] [id number], [place] [address] Dec, [facility] [address] [facility] [id number] [place] [id number] Nov, [facility] [place] [facility] [address] [facility] [id number], [place] [address] Nov, [facility] [address] [facility] [id number] [place] [phone] Oct, [facility] [place] [facility] [address] [facility] [id number], [place] [address] Oct, [facility] [address] [facility] [id number] [place] [id number] Oct, [facility] [place] [facility] [address] [id number], [place] [address] Oct, [facility] [place] [facility] [address] [facility] [id number] [place] [address] August, [facility] [place] [facility] [address] [id number] [place] [address] August, [facility] [place] [facility] [address] [facility] [id number] [place] [address] August, [facility] [place] [facility] [address] [facility] [id number], [place] [address] August, [facility] [address] [facility] [id number] [place] [id number] Jul, [facility] [place] [facility] [address] [facility] [id number], [place] [address] Jul, [facility] [address] [facility] [id number] [place] [id number] Jun, [facility] [place] [facility] [address] [facility] [id number] [place] [address] Jun, [facility] [address] [facility] [id number] [place] [id number] Jun, [facility] [place] [facility] [address] [id number] [address] Jun, [facility] [address] [facility] [id number] [place] [id number] Jun, [facility] [place] [facility] [address] [address] [id number], [place] [address] Jun, [facility] [address] [facility] [id number] [place] [id number] Jun, [facility] [place] [facility] [address], [place] [address] Jun, [facility] [address] [facility] [id number] [place] [id number] May, [facility] [place] [facility] [address] [facility] [id number], [place] [address] May, [facility] [address] [facility] [id number] [place] [id number] May, [facility] [place] [facility] [address] [facility] [id number] [place] [address] May, [facility] [place] [facility] [address] [facility] [id number], [place] [address] May, [facility] [place] [facility] [address] [facility] [id number], [place] [address] May, [facility] [address] [facility] [id number] [place] [id number] May, [facility] [address]005[address]100[place], [place] [address] May, [facility] [address] [facility] [id number] [place] [id number] May, [facility] [place] [facility] [address] [facility] [id number], [place] [address] May, [facility] [place] [facility] [address], [place] [address] Apr, [facility] [place] [facility] [address], [place] [address] Apr, [facility] [id number] [place] [id number] Apr, [facility] [place] [facility] [address], [place] [address] Apr, [facility] [address] [id number] [place] [id number] Sep, [facility] [place] [facility] [address]100[place], [place] [address] Sep, [facility] [address] [id number] [place] [id number] Sep, [facility] [address] [id number] [place] [id number] Sep, [facility] [place] [facility] [address] [facility] [id number], [place] [address] Jun, [facility] [address] [id number] [place] [id number] Nov, [facility] [address] [id number] [place] [id number] Nov, [facility] [address] [id number] [place] [id number] Nov, [facility] [address] [id number] [place] [id number] Nov, [facility] [address] [id number] [place]ILL[place] [id number] Nov, [facility] [address] [id number] [place]ILL[place] [id number] Nov, [facility] [address] [id number] [place]ILL[place] [id number] Nov, [facility] [address] [id number] [place]ILL[place] [id number] Nov, [facility] [address] [id number] [place]ILL[place] [id number] Nov, [facility] [address] [id number] [place] [id number] Sep, [facility] [address] [id number] [place]ILL[place] [id number] Sep, [facility] [address] [id number] [place]ILL[place] [id number] Sep, [facility] [id number] [place]ILL[place] [id number] Sep, [facility] [id number] [place]ILL[place] [id number] August, [facility] [id number] [place] [id number] August, [facility] [id number] [place]ILL[place] [id number] August, [facility] [id number] [place]ILL[place] [id number] August, [facility] [id number], [place] [address] Sep, IMMUNIZATIONS No Known Immunizations SOCIAL HISTORY Never Assessed REASON FOR VISIT RX-Hydrocodone refill PLAN OF CARE VITAL SIGNS MEDICATIONS Medication Instructions Dosage Frequency Start Date End Date Duration Status Hydrocodone-Acetaminophen 7.5-325 MG Orally every 6 hrs PRN must last 1 m 1 tablet as needed Jan, Active RESULTS No Results PROCEDURES No [...] 11/2014 Surgical History amputation right mid-calf/foot at [facility] 01/2015 Hospitalization History [facility] post op infection to right foot, amputations to mid-calf 01/2015 Hospitalization History [facility] In post-op 7 days, discharges with home health -02/2015 Hospitalization History [facility] ER visit for sore on right stump 04/2016 Hospitalization History [facility] wound on left lower leg, culture +for Strep G 12/2016
--- OUTSIDE RECORDS SUMMARY | 2018-10-31 17:46 | XMS REPORT ---
Author Author JERRICA MENDEZ [facility] Address [address] [place] [address] Care Team Providers Care Director Of Fundraising Name Role Phone JERRICA MENDEZ Unavailable PROBLEMS Type Condition ICD9-CM Code FCZ25-WD Code Onset Dates Condition Status SNOMED Code Problem Reflux esophagitis K21.0 Active 094225700 Problem Wheelchair bound Z99.3 Active 715246660 Problem Hammertoe of left foot M20.42 Active 107914616 Problem Varicose veins of left lower extremity with ulcer other part of lower leg I83.028 Active 82903331 Problem 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 Active 993600123 Problem Venous insufficiency (chronic) (peripheral) I87.2 Active 19034925 Problem 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 Active 254026081 Problem Skin ulcer of left lower leg, limited to breakdown of skin L97.921 Active 67579581 Problem Erectile dysfunction, unspecified erectile dysfunction type N52.9 Active 178552660 Problem DM neuro manif type II E11.49 Active 79975348 Problem Acquired absence of right leg below knee Z89.511 Active 179931382 Problem Diabetes type 2, uncontrolled E11.65 Active 601923176 Problem Mild intermittent asthma without complication J45.20 Active 568742158 Problem Obstructive sleep apnea syndrome G47.33 Active 75033211 Problem Phantom pain R52 Active 314128099 Problem Cellulitis of left lower extremity L03.116 Active 215062382 Problem Essential hypertension I10 Active 01619272 Problem Acute pain of left shoulder M25.512 Active 57348230 ALLERGIES Substance Reaction Event Type Date Status Victoza vomiting Drug Allergy May, Active Lopid vomiting Drug Allergy May, Active Cleocin vomiting Drug Allergy May, Active Cephalexin rash Drug Allergy May, Active ENCOUNTERS Encounter Location Date Diagnosis [facility] [id number] [place] [address] Dec, [facility] [id number] [place] [address] [id number] Nov, [facility] [id number] [place] [address] [id number] Oct, [facility] [id number] [place] [address] [id number] Oct, Diabetes type 2, uncontrolled E11.65 and Cellulitis of left lower extremity L03.116 [facility] [id number] [place] [address] [id number] Oct, Phantom pain R52 [address] [address] Sep, Onychomycosis B35.1 ; Impaired circulation of left leg I99.9 and DM neuro manif type II E11.[address] [id number] Sep, BMI 40.0-44.9, adult Z68.41 ; Skin ulcer of left lower leg, limited to breakdown of skin L97.921 ; Acute pain of left shoulder M25.512 ; DM neuro manif type II E11.49 ; Mild intermittent asthma without complication J45.20 and Phantom pain R52 [facility] [id number] [place] [address] [id number] Sep, Phantom pain R52 [place] [id number] [place] [address] [id number] August, Phantom pain R52 [facility] [id number] [place] [address] [id number] August, Acquired absence of right leg below knee Z89.[address] [id number] August, Acquired absence of right leg below knee Z89.511 [place] [id number] [place] [address] August, Diabetes type 2, uncontrolled E11.65 [address] [place] [address] August, [place] [id number] [place] [address] August, [id number] [place] [address] [id number] August, BMI 40.0-44.9, adult Z68.41 ; 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 and Acquired absence of right leg below knee Z89.511 [id number] [address] August, [id number] [place] [address] [id number] Jul, Skin ulcer of left lower leg, limited to breakdown of skin L97.921 [id number] [place] [address] [id number] Jul, [id number] [place] [address] [id number] Jul, BMI 40.0-44.9, adult Z68.41 ; Skin ulcer of left lower leg, limited to breakdown of skin L97.921 and DM neuro manif type II E11.49 [place] [id number] [place] [address] Jul, [facility] [address] [place] [address] [id number] Jul, [id number] [place] [address] [id number] Jul, [facility] [id number] [place] [address] [id number] Jun, Erectile dysfunction, unspecified erectile dysfunction type N52.9 [place] [id number] [place] [address] Jun, [id number] [place] [address] [id number] Jun, BMI 40.0-44.9, adult Z68.41 ; Diabetes type 2, uncontrolled E11.65 ; Phantom pain R52 ; Subluxation of right shoulder joint, sequela S43.001S and Erectile dysfunction, unspecified erectile dysfunction type N52.9 [facility] [address] [address] Jun, DM neuro manif type II E11.49 ; Onychomycosis B35.1 and Hammertoe of left foot M20.42 [facility] [address], [place] [address] Jun, [address] [id number] [place] [id number] Jun, DM neuro manif type II E11.[address] [id number] [id number] Jun, DM neuro manif type II E11.49 [address] [place] [address] [id number] May, DM neuro manif type II E11.49 ; Venous insufficiency (chronic) (peripheral) I87.2 ; 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 ; Essential hypertension I10 and Phantom pain R52 [address] [place] [address] [id number] Apr, Diabetes type 2, uncontrolled E11.65 ; Acquired absence of right leg below knee Z89.511 ; Essential hypertension I10 ; Reflux esophagitis K21.0 and Phantom pain R52 [address] [place] [address] [id number] Apr, BMI 40.0-44.9, adult Z68.41 and Wheelchair bound Z99.3 [address] [place] [address] [id number] Mar, [id number] [place] [address] [id number] Mar, BMI 40.0-44.9, adult Z68.41 ; Diabetes type 2, uncontrolled E11.65 ; Mild intermittent asthma without complication J45.20 ; Phantom pain R52 ; Reflux esophagitis K21.0 and Essential hypertension I10 [facility] [id number] [place] [address] [id number] Feb, Phantom pain R52 [facility] [address] [id number] Feb, Phantom pain R52 and Acute pain of left shoulder M25.512 [facility] [address] [id number] Jan, Phantom pain R52 [facility] [address] [id number] Jan, DM neuro manif type II E11.49 ; Cellulitis of left lower extremity L03.116 ; Obstructive sleep apnea syndrome G47.33 ; Thyroid disorder screen Z13.29 and Lipid screening Z13.220 [facility] [id number] [place] [address] [id number] Jan, [facility] [address] [id number] Dec, DM neuro manif type II E11.49 ; Phantom pain R52 and Mild intermittent asthma without complication J45.20 [facility] [id number] [place] [address] [id number] Dec, Wound of left lower extremity, subsequent encounter S81.802D [facility] [id number] [place] [address] [id number] Nov, [facility] [id number] [place] [address] Nov, [facility] [id number] [place] [address] [id number] Nov, DM neuro manif type II E11.49 ; Mild intermittent asthma without complication J45.20 ; Essential hypertension I10 and Phantom pain R52 [id number] [place] [address] [id number] Oct, Phantom pain R52 [facility] [address] [id number] Sep, Phantom pain R52 ; DM neuro manif type II E11.49 and Essential hypertension I10 [facility] [id number] [place] [address] [id number] August, DM neuro manif type II E11.49 ; Phantom pain R52 and Essential hypertension I10 [facility] [id number] [place] [id number] Jul, DM neuro manif type II E11.49 and Phantom pain R52 [facility] [address], [place] [address] Jun, Onychomycosis B35.1 and DM neuro manif type II E11.49 [facility] [id number] [place] [id number] Jun, DM neuro manif type II E11.49 ; Phantom pain R52 ; Essential hypertension I10 and Diabetes with neurological manifestations, type II or unspecified type, not stated as uncontrolled 250.60 [facility] [address] [place] [address] [id number] Apr, DM neuro manif type II E11.49 ; Phantom pain R52 ; Essential hypertension I10 and Mild intermittent asthma without complication J45.20 [facility] [id number] [place] [id number] Apr, Need for follow up care after discharge from healthcare facility Z92.89 and Wound of right lower extremity, subsequent encounter S81.801D [facility] [id number] [place] [id number] Mar, Phantom pain R52 ; DM neuro manif type II E11.49 and Essential hypertension I10 [facility] [address] [place] [address] [id number] Feb, DM neuro manif type II E11.49 ; Phantom pain R52 and Essential hypertension I10 [facility] [id number] [place] [id number] Jan, Phantom pain R52 and DM neuro manif type II E11.49 [facility] [address] [place] [id number] Dec, [facility] [address] [place] [address] [id number] Dec, DM neuro manif type II E11.49 ; Phantom pain R52 ; Mild intermittent asthma without complication J45.20 and Essential hypertension I10 [facility] [address], [place] [address] Dec, Onychomycosis B35.1 ; Xerosis of skin L85.3 and DM neuro manif type II E11.49 [facility] [id number] [place] [address] [id number] Nov, Acquired absence of right leg below knee Z89.511 [id number] [place] [address] [id number] Nov, [id number] [place] [address] [id number] Nov, [address] [id number] [place] [address] [id number] Sep, [id number] [place] [address] [id number] Sep, Diabetes type 2, uncontrolled E11.65 ; Leg wound, left, initial encounter S81.802A and Erectile disorder due to medical condition in male N52.1 [address] [place] [address] [id number] Sep, [address] [id number] [place] [address] [id number] Jul, [address] [place] [place] [address] [id number] Jul, [address] [place] [place] [address] [id number] Jul, [address] [place] [address] [id number] Jul, 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 ; Varicose vein of leg I83.93 ; Diabetes type 2, uncontrolled E11.65 and Chronic pain G89.29 [id number] [place] [address] [id number] Jul, [address] [place] [id number] [place] [address] [id number] Jul, Diabetes with neurological manifestations, type II or unspecified type, not stated as uncontrolled 250.60 [address] [id number] Jul, [facility] [address] [id number] [place] [id number] Jul, [facility] [address] [id number] [id number] Jun, Diabetes type 2, uncontrolled E11.65 [facility] [id number] [place] [id number] Jun, Pain in right knee M25.561 ; Pain in left knee M25.562 ; Other chronic pain G89.29 and Primary osteoarthritis of both knees M17.0 [facility] [id number] [place] [address] [id number] Apr, Diabetes type 2, uncontrolled E11.65 ; Puncture wound of foot, left, initial encounter S91.332A and Encounter for immunization Z23 [facility] [id number] [place] [id number] 15 Apr, 2015 [facility] [id number] [place] [address] [id number] Apr, [facility] [id number] [place] [id number] Feb, Acquired absence of right leg below knee Z89.511 [facility] [id number] [place] [id number] Feb, Acquired absence of right leg below knee Z89.511 [facility] [address] [id number] [place] [id number] Feb, Diabetes type 2, uncontrolled E11.65 and Acquired absence of right leg below knee Z89.511 [facility] [address] [id number] [place] [id number] Jan, [facility] [address] [id number] [place] [id number] Jan, [facility] [address] [id number], [place] [address] Jan, [facility] [address] [id number] [place] [id number] Jan, Don [facility] [address]65100[place] [id number] Dec, [facility] [id number] [place] [address] [id number] Dec, Diabetes with neurological manifestations, type II or unspecified type, not stated as uncontrolled 250.60 and Open wound of foot except toe(s) alone, without mention of complication 892.0 [facility] [id number] [place] [address] [id number] Dec, [facility] [id number] [place] [address] [id number] Nov, [facility] [id number] [place] [address] [id number] Nov, Cellulitis of foot 682.7 [facility] [id number] [place] [address] [id number] Oct, [facility] [id number] [place] [address] [id number] Oct, Corneal abrasion 918.1 [facility] [id number] [place] [address] [id number] Oct, [facility] [id number] [place] [address] [id number] Oct, [facility] [id number] [place] [address] [id number] August, [facility] [id number] [place] [address] [id number] August, [facility] [id number] [place] [address] [id number] August, [facility] [id number] [place] [address] [id number] August, [facility] [id number] [place] [address] [id number] August, Diabetes mellitus without mention of complication, type II or unspecified type, not stated as uncontrolled 250.00 [facility] [id number] [place] [address] Jul, [facility] [address] [address] Jul, [facility] [address] [id number] [place] [address] Apr, [facility] [place] [facility] [address] [id number], [place] [address] Apr, [facility] [place] [facility] [address] [facility] [id number], [place] [address] Mar, [facility] [place] [facility] [address] [id number], [place] [address] Mar, [facility] [place] [facility] [address] [id number] [place] [address] Mar, [facility] [place] [facility] [address] [facility] [id number] [place] [address] Mar, [facility] [place] [facility] [address] [facility] [id number], [place] [address] Mar, [facility] [place] [facility] [address] [id number], [place] [address] Mar, [facility] [address] [facility] [id number] [place] [id number] Mar, [facility] [address] [facility] [id number], [place] [address] Mar, [facility] [place] [facility] [address] [facility] [id number], [place] [address] Mar, [facility] [place] [facility] [address] [id number], [place] [address] Mar, [facility] [place] [facility] [address] [id number], [place] [address] Mar, [facility] [place] [facility] [address] [id number], [place] [address] Mar, [facility] [place] [facility] [address] [facility] [id number], [place] [address] Mar, [facility] [address] [facility] [id number] [place] [id number] Mar, [facility] [address] [id number] [place] [address] Jan, [facility] [address] [facility] [id number] [place] [id number] Jan, [facility] [place] [facility] [address] [id number] [place] [address] Jan, [facility] [place] [facility] [address] [facility] [id number] [place] [address] Jan, [facility] [place] [facility] [address] [id number] [place] [address] Jan, [facility] [address] [facility] [id number] [place] [id number] Jan, [facility] [place] [facility] [address] [facility] [id number] [place] [address] Dec, [facility] [address] [facility] [id number] [place] [id number] Nov, [facility] [place] [facility] [address] [facility] [id number], [place] [address] Nov, [facility] [address] [facility] [id number] [place] [id number] Oct, [facility] [place] [facility] [address] [id number], [place] [address] Oct, [facility] [address] [facility] [id number] [place] [address] Oct, [facility] [place] [facility] [address] [id number], [place] [address] Oct, [facility] [place] [facility] [address] [facility] [id number] [place] [address] August, [facility] [place] [facility] [address] [facility] [id number] [place] [address] August, [facility] [place] [facility] [address] [facility] [id number] [place] [address] August, [facility] [place] [facility] [address] [facility] [id number], [place] [address] August, [facility] [address] [facility] [id number] [place] [address] Jul, [facility] [place] [facility] [address] [facility] [id number], [place] [address] Jul, [facility] [address] [facility] [id number] [place] [address] Jun, [facility] [place] [facility] [address] [facility] [id number], [place] [address] Jun, [facility] [address] [facility] [id number] [place] [address]487[address] Jun, [facility] [place] [facility] [address], [place] [address] Jun, [facility] [id number] [place] [address] Jun, [facility] [place] [facility] [address], [place] [address] Jun, [facility] [address] [facility] [id number] [place] [id number] Jun, [facility] [place] [facility] [address], [place] [address] Jun, [facility] [address] [id number] [place] [id number] May, [facility] [place] [facility] [address] [id number], [place] [address] May, [facility] [address] [facility] [id number] [place] [id number] May, [facility] [place] [facility] [address], [place] [address] May, [facility] [place] [facility] [address] [id number], [place] [address] May, [facility] [place] [facility] [address], [place] [address] May, [facility] [address] [facility] [id number] [place] [address] May, [facility] [address], [place] [address] May, [facility] [id number] [place] [id number] May, [facility] [address], [place] [address] May, [facility] [address], [place] [address] Apr, [facility] [id number] [place] [address] Apr, [facility] [id number] [place] [id number] Apr, [facility] [address], [place] [address] Apr, [facility] [address] [id number] [place] [id number] Sep, [facility] [address]65[address], [place] [address] Sep, [facility] [id number] [place] [address] Sep, [facility] [address] [id number] [place] [address] Sep, [facility] [address] [facility] [id number], [place] [address] Jun, [facility] [address] [id number] [place] [id number] Nov, [facility] [address] [id number] [place] [address] Nov, [facility] [address] [id number] [place] [id number] Nov, [facility] [address] [id number] [place] [id number] Nov, [facility] [address] [id number] [place] [id number] Nov, [facility] [address] [id number] [place] [id number] Nov, [facility] [address] [id number] [place] [id number] Nov, [facility] [address] [id number] [place] [id number] Nov, [facility] [address] [id number] [place] [id number] Nov, [facility] [address] [id number] [place] [id number] Sep, [facility] [address] [id number] [place] [id number] Sep, [facility] [address] [id number] [place] [id number] Sep, [facility] [address] [id number] [place] [id number] Sep, [facility] [address] [id number] [place] [id number] August, [facility] [address] [id number] [place] [id number] August, [facility] [address] [id number] [place] [id number] August, [facility] [id number] [place] [id number] August, [facility] [id number] [address] Sep, IMMUNIZATIONS No Known Immunizations SOCIAL HISTORY Never Assessed REASON FOR VISIT Diabetes check up, sore on left mckenzie, neck pain when turns head to right for pas t 2 days---CORNELL reyna PLAN OF CARE Activity Details Follow Up 4 Weeks Reason:dm VITAL SIGNS Height 72 in 2017-06-09 Weight 310.6 lbs 2017-06-09 Temperature 97.5 degrees Fahrenheit 2017-06-09 Heart Rate 89 bpm 2017-06-09 Respiratory Rate 18 2017-06-09 BMI 42.12 kg/m2 2017-06-09 Blood pressure systolic 142 mmHg 2017-06-09 Blood pressure diastolic 96 mmHg 2017-06-09 MEDICATIONS Medication Instructions Dosage Frequency Start Date End Date Duration Status Lancets - as directed Mar, Active Amlodipine Besylate 10 mg Orally Once a day 1 tablet 24h Active Gemfibrozil 600 MG Orally twice a day take 1 tablet 12h Active Walker - as directed Apr, Active Blood Pressure Kit ... as directed Mar, Active Hydrocodone-Acetaminophen 7.5-325 MG Orally every 6 hrs PRN must last 1 m 1 tablet as needed May, Active Gabapentin 600 MG Orally Three times a day 1 capsule 1 tab qhs x 5 d then bid x 5 d then tid 8h Dec, Active Singulair 10 mg Orally Once a day 1 tablet in the evening 24h Active BD Insulin Syringe 30G X 1/2 subcutaneously 5 times daily as directed Dec, Active BD Pen Needle Nedra U/F 32G X 4 MM as directed 8h Sep, Active Metformin HCl 1000 MG Orally Twice a day 1 tablet with meals 12h Active Omeprazole 40 MG Orally Once a day 1 capsule 24h 30 days Active Diovan HCT 160-12.5 MG Orally Once a day take 1 tablet 24h Active Tresiba FlexTouch 200 UNIT/ML Subcutaneous 2 times a day 130 units 12h Sep, Active Potassium Chloride 20 MEQ Orally Once a day 1 tablet 24h Dec, Active Humalog 100 UNIT/ML Subcutaneous 3 times a day with meals 30 Units Active Wheelchair - as directed Apr, lifetime Active Ibuprofen 800 MG Orally Three times a day 1 tablet with food or milk as needed 8h Feb, Active Blood Glucose Test Strip Test Strips as directed 8h Dec, 30 days Active ProAir HFA 108 (90 Base) MCG/ACT Inhalation every 4-6 hours as needed 2 puffs Jul, Active Zoloft 50 mg Orally Once a day 1 tablet 24h Active Leg Prosthesis N/A DON: 99 as directed Right below knee definitive Nov, Active RESULTS No Results PROCEDURES No Known [...] 11/2014 Surgical History amputation right mid-calf/foot at [facility] 01/2015 Hospitalization History [facility] post op infection to right foot, amputations to mid-calf 01/2015 Hospitalization History [facility] In post-op 7 days, discharges with home health -02/2015 Hospitalization History [facility] ER visit for sore on right stump 04/2016 Hospitalization History [facility] wound on left lower leg, culture +for Strep G 12/2016
--- OUTSIDE RECORDS SUMMARY | 2018-10-31 17:46 | XMS REPORT ---
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 Name Role Phone JERRICA MENDEZ Unavailable PROBLEMS Type Condition ICD9-CM Code FRZ22-LM Code Onset Dates Condition Status SNOMED Code Problem Other and unspecified hyperlipidemia 272.4 Active 64488610 Problem Diabetes with neurological manifestations, type II or unspecified type, not stated as uncontrolled 250.60 Active 010206810 Problem Diabetes mellitus without mention of complication, type II or unspecified type, not stated as uncontrolled 250.00 Active 911051203 Problem Essential hypertension I10 Active 91809765 Problem Pain in joint, lower leg 719.46 Active 365357584 Problem Mild intermittent asthma without complication J45.20 Active 596510828 Problem Cavus deformity of foot, 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 Active 23240188 Problem Open wound of foot except toe(s) alone, without mention of complication 892.0 Active 25734887 Problem DM neuro manif type II E11.49 Active 69782964 Problem Diabetes type 2, uncontrolled E11.65 Active 161323724 Problem Phantom pain R52 Active 677369508 Problem Acquired absence of right leg below knee Z89.511 Active 988455943 Problem Ulcer of other part of foot 707.15 Active 86024378 Problem Swelling of limb 729.81 Active 21859704 Problem Pain in joint, pelvic region and thigh 719.45 Active 616596157 Problem Unspecified disorder of skin and subcutaneous tissue 709.9 Active 81050971 Problem Cellulitis and abscess of neck 682.1 Active 853003533 Problem Reflux esophagitis 530.11 Active 634024093 Problem Cellulitis and abscess of foot, except toes 682.7 Active 690174201 Problem Unspecified hereditary and idiopathic peripheral neuropathy 356.9 Active 467043262 Problem Other follow-up examination V67.59 Active 391780796 Problem Cellulitis and abscess of leg, except foot 682.6 Active 481252303 Problem Depressive disorder, not elsewhere classified 311 Active 41136977 ALLERGIES Substance Reaction Event Type Date Status Victoza vomiting Drug Allergy Apr, Active Lopid vomiting Drug Allergy Apr, Active Cleocin vomiting Drug Allergy Apr, Active Cephalexin rash Drug Allergy Apr, Active SOCIAL HISTORY Never Assessed PLAN OF CARE Activity Details Follow Up 4 Weeks Reason:dm VITAL SIGNS Height 72 in 2016-05-07 Weight 295.6 lbs 2016-05-07 Temperature 96.1 degrees Fahrenheit 2016-05-07 Heart Rate 78 bpm 2016-05-07 Respiratory Rate 16 2016-05-07 BMI 40.09 kg/m2 2016-05-07 Blood pressure systolic 116 mmHg 2016-05-07 Blood pressure diastolic 88 mmHg 2016-05-07 MEDICATIONS Medication Instructions Dosage Frequency Start Date End Date Duration Status Test strips ... subcutaneously 2 times a day as directed 12h Feb, Active Zoloft 100 MG Orally Once a day 1 tablet 24h Active Singulair 10 mg Orally Once a day 1 tablet in the evening 24h Active Humalog 100 UNIT/ML Subcutaneous 3 times a day with meals 30 Units Active Amitriptyline HCl 100 MG Orally Once a day at bedtime 1tablet August, Active Tresiba FlexTouch 200 UNIT/ML Subcutaneous 2 times a day 98 units 12h Sep, Active Bactrim DS 800-160 MG Orally Twice a day 1 tablet 12h Active BD Insulin Syringe 27G X 1/2 subcutaneous 5 times a day DX 250.00 as directed Oct, 30 days Active Potassium Chloride 20 MEQ Orally Once a day 1 tablet 24h Dec, Active ProAir HFA 108 (90 Base) MCG/ACT Inhalation every 4-6 hours as needed 2 puffs Jul, Active Omeprazole 20 MG Orally Once a day 1 capsule 24h 30 days Active Diovan HCT 160-12.5 MG Orally Once a day take 1 tablet 24h Active Blood Pressure Kit ... as directed Mar, Active Bactroban 2 % Externally to leg wound 2 times a day 1 application to affected area 12h Apr, 2 May, 2016 10 days Active BD Pen Needle Nedra U/F 32G X 4 MM as directed 8h Sep, Active Silvadene 1 % Externally Once a day 1 application to affected area 24h Sep, Active Amlodipine Besylate 10 mg Orally Once a day 1 tablet 24h Active Gemfibrozil 600 MG Orally twice a day take 1 tablet 12h Active Metformin HCl 1000 MG Orally Twice a day 1 tablet with meals 12h Active Gabapentin 400 MG Orally Three times a day 1 capsule 1 tab qhs x 5 d then bid x 5 d then tid 8h 15 Dec, 2015 Active Leg Prosthesis N/A DON: 99 as directed Right below knee definitive 15 Nov, 2015 Active Blood Glucose Test Strip Test Strips as directed 8h 25 Dec, 2014 30 days Active Advocate Insulin Pen Geff 31G X 8 MM subcutaneous 3 times a day as directed 8h Oct, 30 days Active Hydrocodone-Acetaminophen 7.5-325 MG Orally every 6 hrs PRN 1 tablet as needed Feb, Active RESULTS No Results PROCEDURES No Known procedures IMMUNIZATIONS No Known Immunizations MEDICAL (GENERAL) HISTORY Type Description Date Medical [...] 11/2014 Surgical History amputation right mid-calf/foot at [facility] 01/2015 Hospitalization History [facility] post [...]
--- OUTSIDE RECORDS SUMMARY | 2018-10-31 17:47 | XMS REPORT ---
Author Author JERRICA MENDEZ [facility] Address [address] [place] [address] Care Team Providers Care Household Appliances Service Technician Name Role Phone JERRICA MENDEZ Unavailable PROBLEMS Type Condition ICD9-CM Code NDF16-YR Code Onset Dates Condition Status SNOMED Code Problem Reflux esophagitis K21.0 Active 668689723 Problem Wheelchair bound Z99.3 Active 779285030 Problem Hammertoe of left foot M20.42 Active 461664533 Problem Varicose veins of left lower extremity with ulcer other part of lower leg I83.028 Active 74235541 Problem Depressive disorder, not elsewhere classified 311 Active 80331364 Problem 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 Active 546317443 Problem Unspecified hereditary and idiopathic peripheral neuropathy 356.9 Active 170831734 Problem Reflux esophagitis 530.11 Active 109882899 Problem Venous insufficiency (chronic) (peripheral) I87.2 Active 71957206 Problem 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 Active 054282689 Problem Skin ulcer of left lower leg, limited to breakdown of skin L97.921 Active 61860138 Problem Erectile dysfunction, unspecified erectile dysfunction type N52.9 Active 736264819 Problem DM neuro manif type II E11.49 Active 55756287 Problem Acquired absence of right leg below knee Z89.511 Active 581663332 Problem Other and unspecified hyperlipidemia 272.4 Active 52102961 Problem Diabetes type 2, uncontrolled E11.65 Active 372153420 Problem Mild intermittent asthma without complication J45.20 Active 306867334 Problem Obstructive sleep apnea syndrome G47.33 Active 70464840 Problem Phantom pain R52 Active 226394719 Problem Cellulitis of left lower extremity L03.116 Active 116766833 Problem Essential hypertension I10 Active 37562580 Problem Acute pain of left shoulder M25.512 Active 40367301 ALLERGIES Substance Reaction Event Type Date Status Victoza vomiting Drug Allergy Jan, Active Lopid vomiting Drug Allergy Jan, Active Cleocin vomiting Drug Allergy Jan, Active Cephalexin rash Drug Allergy Jan, Active ENCOUNTERS Encounter Location Date Diagnosis [place] [id number] [address] Sep, [facility] [address] [place] [address] [phone] Sep, [place] [id number] [place] [address] [phone] August, BMI 40.0-44.9, adult Z68.41 ; 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 and Acquired absence of right leg below knee Z89.511 [place] [address]GERALD [id number] [place] [address] August, [address] [place] [address] [id number] Jul, Skin ulcer of left lower leg, limited to breakdown of skin L97.921 [address] [place] [address] [id number] Jul, [place] [id number] [place] [address] [id number] Jul, BMI 40.0-44.9, adult Z68.41 ; Skin ulcer of left lower leg, limited to breakdown of skin L97.921 and DM neuro manif type II E11.49 [place] [address], [place] [address] Jul, [address] [id number] Jul, [address] [place] [address] [phone] Jul, [place] [id number] [place] [address] [id number] Jun, Erectile dysfunction, unspecified erectile dysfunction type N52.9 [place] [address] [place] [id number] [place] [address] Jun, [facility] [address] [facility] [id number] [id number] Jun, BMI 40.0-44.9, adult Z68.41 ; Diabetes type 2, uncontrolled E11.65 ; Phantom pain R52 ; Subluxation of right shoulder joint, sequela S43.001S and Erectile dysfunction, unspecified erectile dysfunction type N52.9 [facility] [address] [place] [address] Jun, DM neuro manif type II E11.49 ; Onychomycosis B35.1 and Hammertoe of left foot M20.42 [facility] [address] [place] [address] Jun, [facility] [address] [place] [address] [phone] Jun, DM neuro manif type II E11.[address] [id number] [phone] Jun, DM neuro manif type II E11.49 [facility] [address] [place] [address] [id number] May, DM neuro manif type II E11.49 ; Venous insufficiency (chronic) (peripheral) I87.2 ; 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 ; Essential hypertension I10 and Phantom pain R52 [address] [place] [address] [id number] Apr, Diabetes type 2, uncontrolled E11.65 ; Acquired absence of right leg below knee Z89.511 ; Essential hypertension I10 ; Reflux esophagitis K21.0 and Phantom pain R52 [address] [place] [address] [phone] Apr, BMI 40.0-44.9, adult Z68.41 and Wheelchair bound Z99.3 [facility] [address] [place] [address] [id number] Mar, [place] [id number] [place] [address] [id number] Mar, BMI 40.0-44.9, adult Z68.41 ; Diabetes type 2, uncontrolled E11.65 ; Mild intermittent asthma without complication J45.20 ; Phantom pain R52 ; Reflux esophagitis K21.0 and Essential hypertension I10 [facility] [address] [place] [id number] [place] [address] [id number] Feb, Phantom pain R52 [facility] [address] [place] [address] [id number] [place] [address] [id number] Feb, Phantom pain R52 and Acute pain of left shoulder M25.512 [facility] [address] [place] [address] [id number] [place] [address] [phone] Jan, Phantom pain R52 [place] [address] [id number] Jan, DM neuro manif type II E11.49 ; Cellulitis of left lower extremity L03.116 ; Obstructive sleep apnea syndrome G47.33 ; Thyroid disorder screen Z13.29 and Lipid screening Z13.220 [facility] [id number] [place] [address] [id number] Jan, [facility] [address] [place] [address] [id number] [place] [address] [id number] Dec, DM neuro manif type II E11.49 ; Phantom pain R52 and Mild intermittent asthma without complication J45.20 [facility] [address] [place] [address] [id number] [place] [address] [id number] Dec, Wound of left lower extremity, subsequent encounter S81.802D [facility] [address] [place] [address] [id number] [place] [address] [id number] Nov, [facility] [address] [place] [id number] [place] [address] Nov, [facility] [address] [place] [address] [id number] [place] [address] [phone] Nov, DM neuro manif type II E11.49 ; Mild intermittent asthma without complication J45.20 ; Essential hypertension I10 and Phantom pain R52 [facility] [address] [place] [address] [id number] [place] [address] [id number] Oct, Phantom pain R52 [facility] [address] [id number] Sep, Phantom pain R52 ; DM neuro manif type II E11.49 and Essential hypertension I10 [facility] [address] [place] [address] [id number] [place] [address] [phone] August, DM neuro manif type II E11.49 ; Phantom pain R52 and Essential hypertension I10 [facility] [address] [place] [address] [id number] [place] [address] [id number] Jul, DM neuro manif type II E11.49 and Phantom pain R52 [facility] [address] [place] [id number] [place] [address] Jun, Onychomycosis B35.1 and DM neuro manif type II E11.49 [place] [address] [place] [id number] [place] [address] [phone] Jun, DM neuro manif type II E11.49 ; Phantom pain R52 ; Essential hypertension I10 and Diabetes with neurological manifestations, type II or unspecified type, not stated as uncontrolled 250.60 [facility] [address] [address] [id number] [place] [address] [phone] Apr, DM neuro manif type II E11.49 ; Phantom pain R52 ; Essential hypertension I10 and Mild intermittent asthma without complication J45.20 [facility] [address] [place] [address] [id number] [place] [address] [phone] Apr, Need for follow up care after discharge from healthcare facility Z92.89 and Wound of right lower extremity, subsequent encounter S81.801D [facility] [address] [place] [id number] [place] [address] [id number] Mar, Phantom pain R52 ; DM neuro manif type II E11.49 and Essential hypertension I10 [facility] [address] [place] [address] [id number] Feb, DM neuro manif type II E11.49 ; Phantom pain R52 and Essential hypertension I10 [facility] [address] [place] [address] [id number] [place] [address] [id number] Jan, Phantom pain R52 and DM neuro manif type II E11.49 [facility] [address] [place] [address] [id number] [place] [address] [phone] Dec, [address] [phone] Dec, DM neuro manif type II E11.49 ; Phantom pain R52 ; Mild intermittent asthma without complication J45.20 and Essential hypertension I10 [facility] [address], [place] [address] Dec, Onychomycosis B35.1 ; Xerosis of skin L85.3 and DM neuro manif type II E11.49 [place] [id number] [place] [address] [id number] Nov, Acquired absence of right leg below knee Z89.511 [place] [id number] [place] [address] [id number] Nov, [place] [id number] [place] [address] [id number] Nov, [place] [id number] [place] [address] [id number] Sep, [place] [id number] [place] [address] [phone] Sep, Diabetes type 2, uncontrolled E11.65 ; Leg wound, left, initial encounter S81.802A and Erectile disorder due to medical condition in male N52.1 [address] [place] [address] [id number] Sep, [place] [id number] [place] [address] [id number] Jul, [place] [id number] [place] [address] [id number] Jul, [place] [id number] [place] [address] [id number] Jul, [place] [id number] [place] [address] [id number] Jul, 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 ; Varicose vein of leg I83.93 ; Diabetes type 2, uncontrolled E11.65 and Chronic pain G89.29 [address] [place] [address] [id number] Jul, [address] [phone] Jul, Diabetes with neurological manifestations, type II or unspecified type, not stated as uncontrolled 250.60 [facility] [address] [place] [address] [id number] [place] [address] [id number] Jul, [facility] [id number] [place] [address] [id number] Jul, [facility] [address] [place] [address] [id number] Jun, Diabetes type 2, uncontrolled E11.65 [facility] [id number] [place] [address] [id number] Jun, Pain in right knee M25.561 ; Pain in left knee M25.562 ; Other chronic pain G89.29 and Primary osteoarthritis of both knees M17.0 [place] [id number] [place] [address] [id number] Apr, Diabetes type 2, uncontrolled E11.65 ; Puncture wound of foot, left, initial encounter S91.332A and Encounter for immunization Z23 [facility] [id number] [id number] Apr, [place] [id number] [place] [address] [id number] Apr, [facility] [id number] [place] [address] [id number] Feb, Acquired absence of right leg below knee Z89.511 [address] [id number] Feb, Acquired absence of right leg below knee Z89.511 [place] [id number][place] [id number] Feb, Diabetes type 2, uncontrolled E11.65 and Acquired absence of right leg below knee Z89.511 [address] [place] [address] [id number] Jan, [facility] [address] [phone] Jan, [facility] [address] [place] [id number] [place] [address] Jan, [facility] [address] [id number] [phone] Jan, Don [facility] [id number] [place] [phone] Dec, [facility] [id number], [place] [phone] Dec, Diabetes with neurological manifestations, type II or unspecified type, not stated as uncontrolled 250.60 and Open wound of foot except toe(s) alone, without mention of complication 892.0 [facility] [id number][place] [id number] Dec, [facility] [id number] [place] [address] [phone] Nov, [facility] [address] [place] [id number] [place] [address] [id number] Nov, Cellulitis of foot 682.7 [facility] [id number] [place] [address] [id number] Oct, [facility] [id number] [place] [address] [id number] Oct, Corneal abrasion 918.1 [facility] [id number] [place] [address] [id number] Oct, [facility] [id number] [place] [address] [id number] Oct, [facility] [id number] [place] [address] [phone] August, [facility] [id number], [place] [phone] August, [facility] [id number], [place] [phone] August, [facility] [id number], [place] [phone] August, [facility] [id number], [place] [id number] August, Diabetes mellitus without mention of complication, type II or unspecified type, not stated as uncontrolled 250.00 [facility] [address] [id number] [place] [address] 14 Jul, 2014 [facility] [address] [id number] [place] [address] Jul, [facility] [place] [facility] [address] [id number] [place] [address] Apr, [facility] [place] [facility] [address] [id number] [place] [address] Apr, [facility] [place] [facility] [address] [id number] [place] [address] Mar, [facility] [place] [facility] [address] [id number] [place] [address] Mar, [facility] [address] [id number] [place] [address] Mar, [facility] [address] [id number] [place] [address] Mar, [facility] [address] [id number] [place] [address] Mar, [facility] [address] [id number] [place] [address] Mar, [facility] [address] [id number][place] [id number] Mar, [facility] [place] [facility] [address] [id number] [place] [address] Mar, [facility] [place] [facility] [address] [id number] [place] [address] Mar, [facility] [place] [facility] [address] [id number] [place] [address] Mar, [facility] [place] [facility] [address] [id number] [place] [address] Mar, [facility] [place] [facility] [address] [id number] [place] [address] Mar, [facility] [place] [facility] [address] [id number] [place] [address] Mar, [facility] [address] [facility] [id number] [place] [id number] Mar, [facility] [place] [facility] [address] [id number] [place] [address] Jan, [facility] [address] [facility] [id number] [place] [id number] Jan, [facility] [place] [facility] [address] [id number] [place] [address] Jan, [facility] [place] [facility] [address] [facility] [id number] [place] [address] Jan, [facility] [place] [facility] [address] [facility] [id number] [place] [address] Jan, [facility] [address] [facility] [id number][place] [id number] Jan, [facility] [place] [facility] [address] [facility] [id number], [place] [address] Dec, [facility] [address] [facility] [id number][place] [id number] Nov, [facility] [place] [facility] [address] [facility] [id number] [place] [address] Nov, [facility] [address] [facility] [id number][place] [id number] Oct, [facility] [place] [facility] [address] [facility] [id number], [place] [address] Oct, [facility] [address] [facility] [id number], [place] [id number] Oct, [facility] [place] [facility] [address] [facility] [id number] [place] [address] Oct, [facility] [place] [facility] [address] [facility] [id number] [place] [address] August, [facility] [place] [facility] [address] [facility] [id number], [place] [address] August, [facility] [place] [facility] [address] [facility] [id number], [place] [address] August, [facility] [place] [facility] [address] [facility] [id number], [place] [address] August, [facility] [address] [facility] [id number], [place] [id number] Jul, [facility] [place] [facility] [address] [facility] [id number], [place] [address] Jul, [facility] [address] [facility] [id number], [place] [id number] Jun, [facility] [place] [facility] [address] [facility] [id number], [place] [address] Jun, [facility] [address] [place] [id number], [place] [id number] Jun, [facility] [place] [facility] [address], [place] [address] Jun, [facility] [address] [place] [id number], [place] [id number] Jun, [facility] [place] [facility] [address], [place] [address] Jun, [facility] [address] [place] [id number], [place] [id number] Jun, [facility] [place] [facility] [address] [place] [address] [id number], [place] [address] Jun, [facility] [address] [facility] [id number], [place] [id number] May, [facility] [place] [facility] [address] [facility] [id number], [place] [address] May, [facility] [address] [facility] [id number], [place] [id number] May, [facility] [place] [facility] [address] [facility] [id number], [place] [address] May, [facility] [place] [facility] [address] [id number] [place] [address] May, [facility] [place] [facility] [address] [facility] [id number] [place] [address] May, [facility] [address] [id number] [place] [id number] May, [facility] [place] [facility] [address] [facility] [id number] [place] [address] May, [facility] [address] [id number] [place] [id number] May, [facility] [place] [facility] [address] [facility] [id number] [place] [address] May, [facility] [place] [facility] [address] [facility] [id number] [place] [address] Apr, [facility] [place] [facility] [address] [place] [address] Apr, [facility] [address] [facility] [id number], [place] [id number] Apr, [facility] [place] [facility] [address], [place] [address] Apr, [facility] [address] [facility] [id number], [place] [id number] Sep, [facility] [place] [facility] [address] [facility] [id number], [place] [address] Sep, [facility] [address] [id number], [place] [id number] Sep, [facility] [address] [id number] [place] [id number] Sep, [facility] [place] [facility] [address] [facility] [id number], [place] [address] Jun, [facility] [address] [id number] [place] [id number] Nov, [facility] [address] [id number], [place] [id number] Nov, [facility] [address] [id number] [place] [id number] Nov, [facility] [address] [id number] [place] [id number] Nov, [facility] [address] [id number] [place] [id number] Nov, [facility] [address] [id number] [place] [id number] Nov, [facility] [address] [id number] [place] [id number] Nov, [facility] [address] [id number] [place] [id number] Nov, [facility] [address] [id number] [place] [id number] Nov, [facility] [address] [id number] [place] [id number] Sep, [facility] [address] [id number] [place] [id number] Sep, [facility] [address] [id number] [place] [id number] Sep, [facility] [id number] [place] [address] [id number] Sep, [facility] [id number] [place] [address] [id number] August, [facility] [address] [id number] [id number] August, [facility] [address] [id number][place] [id number] August, [facility] [address] [id number][place] [id number] August, [facility] [id number] [address] Sep, IMMUNIZATIONS No Known Immunizations SOCIAL HISTORY Never Assessed REASON FOR VISIT Wound started on left leg x's 2 months ago, has gotten worse per pt. Not healing properly, Pt also needs sleep study done for new CPAP equipment Medardo MARIE PLAN OF CARE Activity Details Follow Up 4 Weeks Reason:sleep study VITAL SIGNS Height 72 in 2017-01-26 Weight 310.6 lbs 2017-01-26 Temperature 98 degrees Fahrenheit 2017-01-26 Heart Rate 104 bpm 2017-01-26 Respiratory Rate 20 2017-01-26 BMI 42.12 kg/m2 2017-01-26 Blood pressure systolic 142 mmHg 2017-01-26 Blood pressure diastolic 92 mmHg 2017-01-26 MEDICATIONS Medication Instructions Dosage Frequency Start Date End Date Duration Status Tresiba FlexTouch 200 UNIT/ML Subcutaneous 2 times a day 112 units 12h Sep, Active Amlodipine Besylate 10 mg Orally Once a day 1 tablet 24h Active BD Insulin Syringe 27G X 1/2 as directed Oct, 30 days Active Gabapentin 600 MG Orally Three times a day 1 capsule 1 tab qhs x 5 d then bid x 5 d then tid 8h Dec, Active Metformin HCl 1000 MG Orally Twice a day 1 tablet with meals 12h Active Blood Glucose Test Strip Test Strips as directed 8h Dec, 30 days Active Diovan HCT 160-12.5 MG Orally Once a day take 1 tablet 24h Active Gemfibrozil 600 MG Orally twice a day take 1 tablet 12h Active Blood Pressure Kit ... as directed Mar, Active Humalog 100 UNIT/ML Subcutaneous 3 times a day with meals 30 Units Active BD Insulin Syringe 30G X 1/2 subcutaneously 5 times daily as directed Dec, Active Leg Prosthesis N/A DON: 99 as directed Right below knee definitive Nov, Active ProAir HFA 108 (90 Base) MCG/ACT Inhalation every 4-6 hours as needed 2 puffs Jul, Active BD Pen Needle Nedra U/F 32G X 4 MM as directed 8h Sep, Active Hydrocodone-Acetaminophen 7.5-325 MG Orally every 6 hrs PRN must last 1 m 1 tablet as needed Dec, Active Amoxicillin 500 mg Orally every 12 hrs 2 tablet 12h Jan, Jan, 10 days Active Singulair 10 mg Orally Once a day 1 tablet in the evening 24h Active Potassium Chloride 20 MEQ Orally Once a day 1 tablet 24h Dec, Active Zoloft 50 mg Orally Once a day 1 tablet 24h Active Omeprazole 20 MG Orally Once a day 1 capsule 24h 30 days Active RESULTS No Results PROCEDURES Procedure Date Ordered Result Body Site URINALYSIS, AUTO, W/O SCOPE Jan 26, 2017 No Charge Jan 26, 2017 LAB NOT BILLED BY [facility] Jan 26, 2017 VENIPUNCT, ROUTINE* Jan 26, 2017 INSTRUCTIONS MEDICATIONS ADMINISTERED No Known Medications [...] 11/2014 Surgical History amputation right mid-calf/foot at [facility] 01/2015 Hospitalization History [facility] post op infection to right foot, amputations to mid-calf 01/2015 Hospitalization History [facility] post-op 7 days, discharges with home health -02/2015 Hospitalization History [facility] visit for sore on right stump 04/2016 Hospitalization History [facility] wound on left lower leg, culture +for Strep G 12/2016
--- OUTSIDE RECORDS SUMMARY | 2018-10-31 17:47 | XMS REPORT ---
Author ELIA Fournier [facility] eClinicalWorks Address Unknown Phone Unavailable Care Team Providers Care Hvac Residential Service Technician Name Role Phone ELIA VALDEZ CP Unavailable Allergies, Adverse Reactions, Alerts Substance Reaction Event Type Victoza vomiting Drug Allergy Lopid vomiting Drug Allergy Cleocin vomiting Drug Allergy Cephalexin rash Drug Allergy Problems Problem Type Condition Code Onset Dates Condition Status Problem Cellulitis and abscess of neck 682.1 Active Problem Swelling of limb 729.81 Active Problem Pain in joint, pelvic region and thigh 719.45 Active Problem Diabetes mellitus without mention of complication, type II or unspecified type, not stated as uncontrolled 250.00 Active Problem Other and unspecified hyperlipidemia 272.4 Active Problem Open wound of foot except toe(s) alone, without mention of complication 892.0 Active Problem Ulcer of other part of foot 707.15 Active Problem Cavus deformity of foot, 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 Active Problem Cellulitis and abscess of foot, except toes 682.7 Active Problem Unspecified hereditary and idiopathic peripheral neuropathy 356.9 Active Assessment Acquired absence of right leg below knee Z89.511 Active Problem Pain in joint, lower leg 719.46 Active Problem Cellulitis and abscess of leg, except foot 682.6 Active Problem Depressive disorder, not elsewhere classified 311 Active Problem Unspecified disorder of skin and subcutaneous tissue 709.9 Active Problem Reflux esophagitis 530.11 Active Problem Other follow-up examination V67.59 Active Problem Diabetes with neurological manifestations, type II or unspecified type, not stated as uncontrolled 250.60 Active Medications Medication Code System Code Instructions Start Date End Date Status Dosage BD Insulin Syringe [facility] 8290-427004 27G X 1/2 subcutaneous 5 times a day DX 250.00 October 16, 2014 as directed Bactrim DS [facility] [address]-31 800-160 MG Orally 2 times a day Feb 27, 2015 Mar 06, 2015 1 tablet Blood Glucose Test Strip [facility] 0 Test Strips 3 times a day Jan 04, 2015 as directed Diovan HCT [facility] [address]-00 160-12.5 MG Orally Once a day Feb 01, 2014 take 1 tablet Potassium Chloride [facility] [address]-50 20 MEQ Orally Once a day Jan 07, 2015 1 tablet Humalog [facility] [address]-91 100 UNIT/ML Subcutaneous 3 times a day with meals 30Units Norvasc [facility] [address]-12 10 MG Orally Once a day Jan 14, 2015 1 tablet Neurontin [facility] [address]-66 300 MG Orally Three times a day August 29, 2014 1 capsule Levemir [facility] [address]-33 100 UNIT/ML Subcutaneous 2 times a day August 29, 2014 70 units Hydrocodone-Acetaminophen [facility] [address]-46 7.5-325 MG Orally every 6 hrs PRN Feb 27, 2015 1 tablet as needed Gemfibrozil [facility] [address]-72 600 MG Orally Once a day Feb 01, 2014 take 1 tablet Advocate Insulin Pen [place] [facility] [address]234 31G X 8 MM subcutaneous 3 times a day October 17, 2014 as directed Omeprazole [facility] [address]-11 20 MG Orally Once a day 1 capsule Zoloft [facility] [address]-77 50 MG Orally Once a day Feb 01, 2014 1 tablet Procedures Procedure Coding System Code Date Office Visit, Est Pt., Level 3 CPT-4 58509 Mar 04, 2015 Vital Signs Date/Time: Mar 04, 2015 Temperature 98.3 F Weight 214 lbs Height 72 in BMI 29.02 Index Blood Pressure Diastolic 82 mmHg Blood Pressure Systolic 142 mmHg Cardiac Monitoring Heart Rate 90 bpm Results No Known Results Summary Purpose eClinicalWorks Submission
--- OUTSIDE RECORDS SUMMARY | 2018-10-31 17:47 | XMS REPORT ---
Author Author [facility] Address [address] [place] [address] Care Team Providers Care Box Toe Cementer Name Role Phone JERRICA MENDEZ Unavailable PROBLEMS Type Condition ICD9-CM Code [id number] Code Onset Dates Condition Status SNOMED Code Problem Other and unspecified hyperlipidemia 272.4 Active 20505764 Problem Open wound of foot except toe(s) alone, without mention of complication 892.0 Active 43193820 Problem Diabetes mellitus without mention of complication, type II or unspecified type, not stated as uncontrolled 250.00 Active 758782061 Problem Phantom pain R52 Active 740072209 Problem Cellulitis and abscess of leg, except foot 682.6 Active 314574177 Problem Mild intermittent asthma without complication J45.20 Active 747965457 Problem Other follow-up examination V67.59 Active 971940580 Problem Unspecified disorder of skin and subcutaneous tissue 709.9 Active 91093495 Problem DM neuro manif type II E11.49 Active 57466702 Problem Diabetes type 2, uncontrolled E11.65 Active 876390377 Problem Essential hypertension I10 Active 30167311 Problem Acquired absence of right leg below knee Z89.511 Active 814209678 Problem Diabetes with neurological manifestations, type II or unspecified type, not stated as uncontrolled 250.60 Active 978650901 Problem Cellulitis and abscess of neck 682.1 Active 571212023 Problem Depressive disorder, not elsewhere classified 311 Active 18181704 Problem Reflux esophagitis 530.11 Active 818536074 Problem Cavus deformity of foot, 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 Active 77689465 Problem Ulcer of other part of foot 707.15 Active 44071176 Problem Pain in joint, pelvic region and thigh 719.45 Active 183772575 Problem Unspecified hereditary and idiopathic peripheral neuropathy 356.9 Active 496994066 Problem Pain in joint, lower leg 719.46 Active 000782025 Problem Swelling of limb 729.81 Active 70006643 Problem Cellulitis and abscess of foot, except toes 682.7 Active 076340273 ALLERGIES Substance Reaction Event Type Date Status Victoza vomiting Drug Allergy Feb, Active Lopid vomiting Drug Allergy Feb, Active Cleocin vomiting Drug Allergy Feb, Active Cephalexin rash Drug Allergy Feb, Active SOCIAL HISTORY No smoking Hx information available PLAN OF CARE Activity Details Follow Up 4 Weeks Reason:dm VITAL SIGNS Height 72 in 2016-03-09 Weight 301.2 lbs 2016-03-09 Temperature 97.5 degrees Fahrenheit 2016-03-09 Heart Rate 83 bpm 2016-03-09 Respiratory Rate 16 2016-03-09 BMI 40.85 kg/m2 2016-03-09 Blood pressure systolic 142 mmHg 2016-03-09 Blood pressure diastolic 92 mmHg 2016-03-09 MEDICATIONS Medication Instructions Dosage Frequency Start Date End Date Duration Status Singulair 10 mg Orally Once a day 1 tablet in the evening 24h Active Diovan HCT 160-12.5 MG Orally Once a day take 1 tablet 24h Active Tresiba FlexTouch 200 UNIT/ML Subcutaneous 2 times a day 88 units 12h Sep, Active Gabapentin 400 MG Orally Three times a day 1 capsule 1 tab qhs x 5 d then bid x 5 d then tid 8h Dec, Active Leg Prosthesis N/A DON: 99 as directed Right below knee definitive Nov, Active BD Pen Needle [place] U/F 32G X 4 MM as directed 8h Sep, Active Advocate Insulin Pen [place] 31G X 8 MM subcutaneous 3 times a day as directed 8h Oct, 30 days Active Gemfibrozil 600 MG Orally twice a day take 1 tablet 12h Active Silvadene 1 % Externally Once a day 1 application to affected area 24h Sep, Active Blood Glucose Test Strip Test Strips as directed 8h Dec, 30 days Active Metformin HCl 1000 MG Orally Twice a day 1 tablet with meals 12h Active BD Insulin Syringe 27G X 1/2 subcutaneous 5 times a day DX 250.00 as directed Oct, 30 days Active Test strips ... subcutaneously 2 times a day as directed 12h Feb, Active Zoloft 100 MG Orally Once a day 1 tablet 24h Active Amitriptyline HCl 100 MG Orally Once a day at bedtime 1tablet August, Active Hydrocodone-Acetaminophen 7.5-325 MG Orally every 6 hrs PRN 1 tablet as needed Feb, Active ProAir HFA 108 (90 Base) MCG/ACT Inhalation every 4-6 hours as needed 2 puffs Jul, Active Humalog 100 UNIT/ML Subcutaneous 3 times a day with meals 30 Units Active Amlodipine Besylate 10 mg Orally Once a day 1 tablet 24h Active Potassium Chloride 20 MEQ Orally Once a day 1 tablet 24h 28 Dec, 2014 Active Omeprazole 20 MG Orally Once a day 1 capsule 24h 30 days Active RESULTS No Results PROCEDURES Procedure Date Ordered Related Diagnosis Body Site Office Visit, Est Pt., Level 3 Mar 09, 2016 IMMUNIZATIONS No Known Immunizations
--- OUTSIDE RECORDS SUMMARY | 2018-10-31 17:47 | XMS REPORT ---
Author Author [facility]ICA [facility]ENDEZ [facility] Address [address] [place] [address] Care Team Providers Care Environmental Field Technician Name Role Phone JERRICA MENDEZ Unavailable PROBLEMS Type Condition ICD9-CM Code YMW43-CF Code Onset Dates Condition Status SNOMED Code Problem Other and unspecified hyperlipidemia 272.4 Active 58124710 Problem Open wound of foot except toe(s) alone, without mention of complication 892.0 Active 33115821 Problem Diabetes mellitus without mention of complication, type II or unspecified type, not stated as uncontrolled 250.00 Active 446358647 Problem Phantom pain R52 Active 986266356 Problem Cellulitis and abscess of leg, except foot 682.6 Active 492688309 Problem Mild intermittent asthma without complication J45.20 Active 751172203 Problem Other follow-up examination V67.59 Active 066474096 Problem Unspecified disorder of skin and subcutaneous tissue 709.9 Active 98975862 Problem DM neuro manif type II E11.49 Active 87548815 Problem Diabetes type 2, uncontrolled E11.65 Active 349324083 Problem Essential hypertension I10 Active 35925695 Problem Acquired absence of right leg below knee Z89.511 Active 271202481 Problem Diabetes with neurological manifestations, type II or unspecified type, not stated as uncontrolled 250.60 Active 251716997 Problem Cellulitis and abscess of neck 682.1 Active 660299583 Problem Depressive disorder, not elsewhere classified 311 Active 12842641 Problem Reflux esophagitis 530.11 Active 269777695 Problem Cavus deformity of foot, 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 Active 60689879 Problem Ulcer of other part of foot 707.15 Active 95579836 Problem Pain in joint, pelvic region and thigh 719.45 Active 104661075 Problem Unspecified hereditary and idiopathic peripheral neuropathy 356.9 Active 349960052 Problem Pain in joint, lower leg 719.46 Active 375428672 Problem Swelling of limb 729.81 Active 22965799 Problem Cellulitis and abscess of foot, except toes 682.7 Active 470693293 ALLERGIES Substance Reaction Event Type Date Status Victoza vomiting Drug Allergy Mar, Active Lopid vomiting Drug Allergy Mar, Active Cleocin vomiting Drug Allergy Mar, Active Cephalexin rash Drug Allergy Mar, Active SOCIAL HISTORY No smoking Hx information available PLAN OF CARE Activity Details Follow Up 4 Weeks Reason:dm VITAL SIGNS Height 72 in 2016-04-06 Weight 298.6 lbs 2016-04-06 Temperature 98.1 degrees Fahrenheit 2016-04-06 Heart Rate 80 bpm 2016-04-06 Respiratory Rate 16 2016-04-06 BMI 40.49 kg/m2 2016-04-06 Blood pressure systolic 130 mmHg 2016-04-06 Blood pressure diastolic 88 mmHg 2016-04-06 MEDICATIONS Medication Instructions Dosage Frequency Start Date End Date Duration Status Metformin HCl 1000 MG Orally Twice a day 1 tablet with meals 12h Active Diovan HCT 160-12.5 MG Orally Once a day take 1 tablet 24h Active Advocate Insulin Pen [place] 31G X 8 MM subcutaneous 3 times a day as directed 8h Oct, 30 days Active BD Pen Needle [place] U/F 32G X 4 MM as directed 8h Sep, Active ProAir HFA 108 (90 Base) MCG/ACT Inhalation every 4-6 hours as needed 2 puffs Jul, Active Singulair 10 mg Orally Once a day 1 tablet in the evening 24h Active Omeprazole 20 MG Orally Once a day 1 capsule 24h 30 days Active Gemfibrozil 600 MG Orally twice a day take 1 tablet 12h Active Potassium Chloride 20 MEQ Orally Once a day 1 tablet 24h Dec, Active Test strips ... subcutaneously 2 times a day as directed 12h Feb, Active Zoloft 100 MG Orally Once a day 1 tablet 24h Active Amitriptyline HCl 100 MG Orally Once a day at bedtime 1tablet August, Active Blood Pressure Kit ... as directed Mar, Active BD Insulin Syringe 27G X 1/2 subcutaneous 5 times a day DX 250.00 as directed Oct, 30 days Active Hydrocodone-Acetaminophen 7.5-325 MG Orally every 6 hrs PRN 1 tablet as needed Feb, Active Leg Prosthesis N/A DON: 99 as directed Right below knee definitive Nov, Active Humalog 100 UNIT/ML Subcutaneous 3 times a day with meals 30 Units Active Tresiba FlexTouch 200 UNIT/ML Subcutaneous 2 times a day 96 units 12h 20 Sep, 2015 Active Silvadene 1 % Externally Once a day 1 application to affected area 24h 20 Sep, 2015 Active Amlodipine Besylate 10 mg Orally Once a day 1 tablet 24h Active Gabapentin 400 MG Orally Three times a day 1 capsule 1 tab qhs x 5 d then bid x 5 d then tid 8h 15 Dec, 2015 Active Blood Glucose Test Strip Test Strips as directed 8h 25 Dec, 2014 30 days Active RESULTS Name Result Date Reference Range A1C (IN HOUSE) 2016-04-06 A1C IN HOUSE 9.9 4.3 - 5.6 % Previous A1c 9.9 Lot [id number] Exp date 01/2018 MICROALBUMIN, URINE (IN HOUSE) 2016-04-06 MICROALBUMIN normal Lot # [id number] Exp date 02/2017 Clarity clear Color yellow ALB 30mg/L CRE 300 mg/L A:C (IN HOUSE) <30 mg/g Control normal Control Lot # Exp URINE DRUG SCREEN (IN HOUSE) 2016-04-06 Lot # [id number] Exp date 05/2016 Control + COCAINE NEG AMPH NEG MTD NEG THC NEG OPIATE NEG BENZO NEG PCP NEG BAR NEG OXY NEG MAMP NEG TCA NEG BUP NEG MDMA NEG PROCEDURES Procedure Date Ordered Related Diagnosis Body Site Office Visit, Est Pt., Level 3 Apr 06, 2016 GLYCATED HEMOGLOBIN TEST Apr 06, 2016 DRUG SCREEN NON TLC DEVICES Apr 06, 2016 MICROALBUMIN, SEMIQUANT Apr 06, 2016 IMMUNIZATIONS No Known Immunizations
--- OUTSIDE RECORDS SUMMARY | 2018-10-31 17:47 | XMS REPORT ---
Author Author JERRICA MENDEZ Organization e[employer] Address Unknown Phone Unavailable Care Team Providers Care Cotton Inspector Name Role Phone JERRICA MENDEZ CP Unavailable Allergies, Adverse Reactions, Alerts Substance Reaction Event Type Victoza vomiting Drug Allergy Lopid vomiting Drug Allergy Cleocin vomiting Drug Allergy Cephalexin rash Drug Allergy Problems Problem Type Condition Code Onset Dates Condition Status Problem Ulcer of other part of foot 707.15 Active Assessment DM neuro manif type II E11.49 Active Problem Unspecified hereditary and idiopathic peripheral neuropathy 356.9 Active Assessment Phantom pain R52 Active Problem Cellulitis and abscess of foot, except toes 682.7 Active Problem Diabetes mellitus without mention of complication, type II or unspecified type, not stated as uncontrolled 250.00 Active Problem Other and unspecified hyperlipidemia 272.4 Active Problem Mild intermittent asthma without complication J45.20 Active Problem Essential hypertension I10 Active Problem Other follow-up examination V67.59 Active Problem Unspecified disorder of skin and subcutaneous tissue 709.9 Active Problem Phantom pain R52 Active Problem Pain in joint, lower leg 719.46 Active Problem Diabetes type 2, uncontrolled E11.65 Active Problem Open wound of foot except toe(s) alone, without mention of complication 892.0 Active Problem Acquired absence of right leg below knee Z89.511 Active Problem DM neuro manif type II E11.49 Active Problem Reflux esophagitis 530.11 Active Problem Diabetes with neurological manifestations, type II or unspecified type, not stated as uncontrolled 250.60 Active Problem Cellulitis and abscess of leg, except foot 682.6 Active Problem Depressive disorder, not elsewhere classified 311 Active Problem Swelling of limb 729.81 Active Problem Cavus deformity of foot, 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 Active Problem Cellulitis and abscess of neck 682.1 Active Problem Pain in joint, pelvic region and thigh 719.45 Active Medications Medication Code System Code Instructions Start Date End Date Status Dosage Hydrocodone-Acetaminophen NDC [address]-66 7.5-325 MG Orally every 6 hrs PRN Feb 27, 2015 1 tablet as needed Omeprazole NDC [address]-71 20 MG Orally Once a day 1 capsule Amitriptyline HCl [facility] [address]-34 100 MG Orally Once a day at bedtime August 29, 2014 1tablet ProAir HFA [facility] [address]-05 108 (90 Base) MCG/ACT Inhalation every 4-6 hours as needed July 31, 2015 2 puffs Gemfibrozil [facility] 39516142750 600 MG Orally twice a day take 1 tablet Tresiba FlexTouch [facility] [address]-39 200 UNIT/ML Subcutaneous 2 times a day September 30, 2015 84 units Diovan HCT [facility] 48859613098 160-12.5 MG Orally Once a day take 1 tablet Advocate Insulin Pen [place] [facility] [address]2909 31G X 8 MM subcutaneous 3 times a day October 17, 2014 as directed Silvadene [facility] [address]-73 1 % Externally Once a day September 30, 2015 1 application to affected area Metformin HCl [facility] 67314414979 1000 MG Orally Twice a day 1 tablet with meals Leg Prosthesis ND 0 N/A DON: 99 as directed Nov 25, 2015 Right below knee definitive Amlodipine Besylate [facility] 63970861455 10 MG TAKE ONE (1) TABLET BY MOUTH DAILY... Singulair [facility] 49852586640 10 mg Orally Once a day 1 tablet in the evening Blood Glucose Test Strip [facility] 0 Test Strips 3 times a day Jan 04, 2015 as directed Gabapentin [facility] [address]-75 400 MG Orally Three times a day Dec 26, 2015 1 capsule 1 tab qhs x 5 d then bid x 5 d then tid Norvasc [facility] 59161060282 10 MG Orally Once a day 1 tablet Humalog [facility] [address]-74 100 UNIT/ML Subcutaneous 3 times a day with meals 30 Units Zoloft [facility] 75045068082 100 MG Orally Once a day 1 tablet BD Insulin Syringe [facility] 8290-515513 27G X 1/2 subcutaneous 5 times a day DX 250.00 October 16, 2014 as directed Potassium Chloride [facility] [address]-08 20 MEQ Orally Once a day Jan 07, 2015 1 tablet BD Pen Needle [place] U/F [facility] 8290-529195 32G X 4 MM 3 times a day September 30, 2015 as directed Procedures Procedure Coding System Code Date Office Visit, Est Pt., Level 3 CPT-4 67770 Feb 06, 2016 Vital Signs Date/Time: Feb 06, 2016 Cardiac Monitoring Heart Rate 88 bpm Weight 283 lbs Height 72 in BMI 38.38 Index Blood Pressure Diastolic 82 mmHg Blood Pressure Systolic 132 mmHg Results No Known Results Summary Purpose eClinicalWorks Submission
--- OUTSIDE RECORDS SUMMARY | 2018-10-31 17:48 | XMS REPORT ---
Author Author JERRICA MENDEZ Organization [facility] Address [address] [place] [address] Care Team Providers Care Sandblast Carver Name Role Phone JERRICA MENDEZ Unavailable PROBLEMS Type Condition ICD9-CM Code MRL13-AI Code Onset Dates Condition Status SNOMED Code Problem Reflux esophagitis K21.0 Active 418706500 Problem Wheelchair bound Z99.3 Active 467939299 Problem Hammertoe of left foot M20.42 Active 539713927 Problem Varicose veins of left lower extremity with ulcer other part of lower leg I83.028 Active 35966590 Problem Depressive disorder, not elsewhere classified 311 Active 80433864 Problem 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 Active 060786171 Problem Unspecified hereditary and idiopathic peripheral neuropathy 356.9 Active 513060409 Problem Reflux esophagitis 530.11 Active 264536918 Problem Venous insufficiency (chronic) (peripheral) I87.2 Active 31450520 Problem 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 Active 380772422 Problem Skin ulcer of left lower leg, limited to breakdown of skin L97.921 Active 94275228 Problem Erectile dysfunction, unspecified erectile dysfunction type N52.9 Active 564420723 Problem DM neuro manif type II E11.49 Active 59480925 Problem Acquired absence of right leg below knee Z89.511 Active 036585887 Problem Other and unspecified hyperlipidemia 272.4 Active 21052527 Problem Diabetes type 2, uncontrolled E11.65 Active 650770422 Problem Mild intermittent asthma without complication J45.20 Active 573888934 Problem Obstructive sleep apnea syndrome G47.33 Active 53740193 Problem Phantom pain R52 Active 664611655 Problem Cellulitis of left lower extremity L03.116 Active 834197596 Problem Essential hypertension I10 Active 08278226 Problem Acute pain of left shoulder M25.512 Active 70769815 ALLERGIES No Information ENCOUNTERS Encounter Location Date Diagnosis [facility] [id number] [id number] Oct, [place] [id number] [place] [address] Sep, [facility] [id number] [place] [address] [id number] Sep, BMI 40.0-44.9, adult Z68.41 ; Skin ulcer of left lower leg, limited to breakdown of skin L97.921 ; Acute pain of left shoulder M25.512 ; DM neuro manif type II E11.49 ; Mild intermittent asthma without complication J45.20 and Phantom pain R52 [place] [id number] [place] [address] [id number] Sep, Phantom pain R52 [place] [id number] [place] [address] [id number] August, Phantom pain R52 [place] [id number] [place] [address] [id number] August, Acquired absence of right leg below knee Z89.[id number] [place] [address] [id number] August, Acquired absence of right leg below knee Z89.511 [place] [address] [place] [address] August, Diabetes type 2, uncontrolled E11.65 [place] [id number] [place] [address] August, [place] [id number] [place] [address] August, [id number] [place] [address] [id number] August, BMI 40.0-44.9, adult Z68.41 ; 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 [address] [id number] [place] [address] August, [address] [id number] [id number] Jul, Skin ulcer of left lower leg, limited to breakdown of skin L97.921 [facility] [id number] [place] [address] [id number] Jul, [facility] [id number] [place] [address], [place] [id number] Jul, BMI 40.0-44.9, adult Z68.41 ; Skin ulcer of left lower leg, limited to breakdown of skin L97.921 and DM neuro manif type II E11.49 [place] [address] [address] Jul, [facility] [id number] [place] [address] [id number] Jul, [facility] [id number] [place] [address] [id number] Jul, [facility] [id number] [place] [address] [id number] Jun, Erectile dysfunction, unspecified erectile dysfunction type N52.9 [place] [id number] [place] [address] Jun, [facility] [id number] [place] [address] [id number] Jun, BMI 40.0-44.9, adult Z68.41 ; Diabetes type 2, uncontrolled E11.65 ; Phantom pain R52 ; Subluxation of right shoulder joint, sequela S43.001S and Erectile dysfunction, unspecified erectile dysfunction type N52.9 [place] [id number] [place] [address] Jun, DM neuro manif type II E11.49 ; Onychomycosis B35.1 and Hammertoe of left foot M20.42 [place] [id number] [place] [address] Jun, [facility] [address] [place] [address] [id number] Jun, DM neuro manif type II E11.49 [place] [address] [facility] [id number] [id number] Jun, DM neuro manif type II E11.49 [facility] [id number] [place] [address] [id number] May, DM neuro manif type II E11.49 ; Venous insufficiency (chronic) (peripheral) I87.2 ; 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 ; Essential hypertension I10 and Phantom pain R52 [facility] [address] [facility] [id number][place] [phone] Apr, Diabetes type 2, uncontrolled E11.65 ; Acquired absence of right leg below knee Z89.511 ; Essential hypertension I10 ; Reflux esophagitis K21.0 and Phantom pain R52 [facility] [id number] [place] [address] [id number] Apr, BMI 40.0-44.9, adult Z68.41 and Wheelchair bound Z99.3 [facility] [address] [facility] [id number] [phone] Mar, [facility] [id number] [place] [address] [id number] Mar, BMI 40.0-44.9, adult Z68.41 ; Diabetes type 2, uncontrolled E11.65 ; Mild intermittent asthma without complication J45.20 ; Phantom pain R52 ; Reflux esophagitis K21.0 and Essential hypertension I10 [facility] 120 [facility] [id number] [place] [address] [id number] Feb, Phantom pain R52 [facility] [address] [facility] [id number] [place] [address] [id number] Feb, Phantom pain R52 and Acute pain of left shoulder M25.512 [place] [id number] [place] [address] [id number] Jan, Phantom pain R52 [facility] [id number] [place] [address] [id number] Jan, DM neuro manif type II E11.49 ; Cellulitis of left lower extremity L03.116 ; Obstructive sleep apnea syndrome G47.33 ; Thyroid disorder screen Z13.29 and Lipid screening Z13.220 [facility] [id number] [place] [address] [id number] Jan, [facility] [address] [id number] Dec, DM neuro manif type II E11.49 ; Phantom pain R52 and Mild intermittent asthma without complication J45.20 [facility] [id number] [place] [address] [id number] Dec, Wound of left lower extremity, subsequent encounter S81.802D [facility] [id number] [place] [address] [id number] Nov, [facility] [id number] [place] [address] Nov, [facility] [id number] [place] [address] [id number] Nov, DM neuro manif type II E11.49 ; Mild intermittent asthma without complication J45.20 ; Essential hypertension I10 and Phantom pain R52 [facility] [id number] [place] [address] [id number] Oct, Phantom pain R52 [facility] [id number] [place] [address] [id number] Sep, Phantom pain R52 ; DM neuro manif type II E11.49 and Essential hypertension I10 [facility] [id number] [place] [address] [id number] August, DM neuro manif type II E11.49 ; Phantom pain R52 and Essential hypertension I10 [facility] [id number] [place] [address] [id number] Jul, DM neuro manif type II E11.49 and Phantom pain R52 [facility] [id number] [place] [address] Jun, Onychomycosis B35.1 and DM neuro manif type II E11.49 [facility] [id number] [place] [address] [id number] Jun, DM neuro manif type II E11.49 ; Phantom pain R52 ; Essential hypertension I10 and Diabetes with neurological manifestations, type II or unspecified type, not stated as uncontrolled 250.60 [place] [id number] [place] [address] [id number] Apr, DM neuro manif type II E11.49 ; Phantom pain R52 ; Essential hypertension I10 and Mild intermittent asthma without complication J45.20 [place] [id number] [place] [address] [id number] Apr, Need for follow up care after discharge from healthcare facility Z92.89 and Wound of right lower extremity, subsequent encounter S81.801D [place] [id number] [place] [address] [id number] Mar, Phantom pain R52 ; DM neuro manif type II E11.49 and Essential hypertension I10 [place] [id number] [place] [address] [id number] Feb, DM neuro manif type II E11.49 ; Phantom pain R52 and Essential hypertension I10 [place] [id number] [place] [address] [id number] Jan, Phantom pain R52 and DM neuro manif type II E11.49 [place] [id number] [place] [address] [id number] Dec, [place] [id number] [place] [address] [id number] Dec, DM neuro manif type II E11.49 ; Phantom pain R52 ; Mild intermittent asthma without complication J45.20 and Essential hypertension I10 [facility] [id number] [place] [address] Dec, Onychomycosis B35.1 ; Xerosis of skin L85.3 and DM neuro manif type II E11.49 [place] [id number] [place] [address] [id number] Nov, Acquired absence of right leg below knee Z89.511 [place] [id number] [place] [address] [id number] Nov, [place] [id number] [place] [address] [id number] Nov, [address] [id number] Sep, [facility] [address] [id number] [place] [id number] Sep, Diabetes type 2, uncontrolled E11.65 ; Leg wound, left, initial encounter S81.802A and Erectile disorder due to medical condition in male N52.1 [facility] [address] [id number] [place] [id number] Sep, [facility] [address] [id number] [place] [id number] Jul, [facility] [address] [id number] [place] [id number] Jul, [facility] [address] [id number] [place] [id number] Jul, [facility] [address] [id number] [place] [id number] Jul, 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 ; Varicose vein of leg I83.93 ; Diabetes type 2, uncontrolled E11.65 and Chronic pain G89.29 [facility] [place] [address] [id number] [place] [id number] Jul, [facility] [address] [id number] [place] [id number] Jul, Diabetes with neurological manifestations, type II or unspecified type, not stated as uncontrolled 250.60 [facility] [place] [address] [id number] [place] [id number] Jul, [facility] [address] [id number] [place] [id number] Jul, [facility] [address] [id number] [place] [id number] Jun, Diabetes type 2, uncontrolled E11.65 [facility] [address] [id number] [place] [id number] Jun, Pain in right knee M25.561 ; Pain in left knee M25.562 ; Other chronic pain G89.29 and Primary osteoarthritis of both knees M17.0 [facility] [address] [id number] [id number] Apr, Diabetes type 2, uncontrolled E11.65 ; Puncture wound of foot, left, initial encounter S91.332A and Encounter for immunization Z23 [place] [id number] [place] [address] [id number] Apr, [facility] [place] [id number] [place] [address] [id number] Apr, [place] [id number] [place] [address] [id number] Feb, Acquired absence of right leg below knee Z89.511 [place] [id number] [place] [address] [id number] Feb, Acquired absence of right leg below knee Z89.511 [place] [id number] [place] [address] [id number] Feb, Diabetes type 2, uncontrolled E11.65 and Acquired absence of right leg below knee Z89.511 [place] [id number] [place] [address] [id number] Jan, [place] [id number] [place] [address] [id number] Jan, [facility] [address] [place] [address] Jan, [place] [id number] [place] [address] [id number] Jan, [facility] [address] [place] [address] [id number] Dec, [address] [place] [address] [id number] Dec, Diabetes with neurological manifestations, type II or unspecified type, not stated as uncontrolled 250.60 and Open wound of foot except toe(s) alone, without mention of complication 892.0 [address] [place] [address] [id number] Dec, [address] [place] [address] [id number] Nov, [place] [id number] [place] [address] [id number] Nov, Cellulitis of foot 682.7 [facility] [place] [address] [id number] [place] [address] [id number] Oct, [facility] [place] [id number] [place] [address] [id number] Oct, Corneal abrasion 918.1 [facility] [place] [id number] [place] [address] [id number] Oct, [facility] [place] [address] [id number] [place] [address] [id number] Oct, [facility] [place] [address] [id number] [place] [address] [id number] August, [facility] [place] [id number] [place] [address] [id number] August, [facility] [place] [id number] [place] [address] [id number] August, [facility] [place] [id number] [place] [address] [id number] August, [facility] [place] [id number] [place] [address] [id number] August, Diabetes mellitus without mention of complication, type II or unspecified type, not stated as uncontrolled 250.00 [facility] [id number] [place] [address] Jul, [facility] [id number] [place] [address] Jul, [facility] [id number] [place] [address] Apr, [facility] [id number] [place] [address] Apr, [facility] [address] [address] Mar, [facility] [id number] [place] [address] Mar, [facility] [address] [address] Mar, [facility] [address] [id number] [place] [address] Mar, [facility] [address] [id number] [place] [address] Mar, [facility] [address] [facility] [id number], [place] [address] Mar, [facility] [address] [facility] [id number][place] [phone] Mar, [facility] [address] [id number] [place] [address] Mar, [facility] [address] [id number], [place] [address] Mar, [facility] [address] [facility] [id number], [place] [address] Mar, [facility] [place] [facility] [address] [facility] [id number], [place] [address] Mar, [facility] [address] [facility] [id number], [place] [address] Mar, [facility] [place] [facility] [address] [facility] [id number], [place] [address] Mar, [facility] [address] [facility] [id number][place] [id number] Mar, [facility] [place] [facility] [address] [facility] [id number], [place] [address] Jan, [facility] [address] [facility] [id number], [place] [id number] Jan, [facility] [place] [facility] [address] [facility] [id number], [place] [address] Jan, [facility] [place] [facility] [address] [facility] [id number], [place] [address] Jan, [facility] [place] [facility] [address] [facility] [id number], [place] [address] Jan, [facility] [address] [id number] [place] [id number] Jan, [facility] [place] [facility] [address] [id number] [place] [address] Dec, [facility] [address] [id number] [place] [id number] Nov, [facility] [place] [facility] [address] [id number] [place] [address] Nov, [facility] [address] [id number] [place] [id number] Oct, [facility] [place] [facility] [address] [id number] [place] [address] Oct, [facility] [address] [id number] [place] [id number] Oct, [facility] [place] [facility] [address] [facility] [id number] [place] [address] Oct, [facility] [place] [facility] [address] [id number] [place] [address] August, [facility] [place] [facility] [address] [facility] [id number] [place] [address] August, [facility] [place] [facility] [address] [facility] [id number] [place] [address] August, [facility] [place] [facility] [address] [facility] [id number] [place] [address] August, [facility] [address] [id number] [place] [id number] Jul, [facility] [place] [facility] [address] [id number] [place] [address] Jul, [facility] [address] [id number] [place] [id number] Jun, [facility] [place] [facility] [address] [id number] [place] [address] Jun, [facility] [address] [id number] [place] [id number] Jun, [facility] [place] [facility] [address] [facility] [id number], [place] [address] Jun, [facility] [address] [facility] [id number] [place] [id number] Jun, [facility] [place] [facility] [address] [facility] [id number], [place] [address] Jun, [facility] [address] [facility] [id number] [place] [id number] Jun, [facility] [place] [facility] [address] [facility] [id number] [place] [address] Jun, [facility] [address] [facility] [id number] [place] [id number] May, [facility] [place] [facility] [address] [id number], [place] [address] May, [facility] [address] [facility] [id number][place] [id number] May, [facility] [place] [facility] [address] [id number], [place] [address] May, [facility] [place] [facility] [address] [id number], [place] [address] May, [facility] [place] [facility] [address] [id number], [place] [address] May, [facility] [address] [facility] [id number], [place] [id number] May, [facility] [place] [facility] [address] [facility] [id number], [place] [address] May, [facility] [address] [facility] [id number][place] [id number] May, [facility] [place] [facility] [address] [facility] [id number], [place] [address] May, [facility] [place] [facility] [address] [facility] [id number], [place] [address] Apr, [facility] [address] [id number], [place] [address] Apr, [facility] [address] [id number] [place] [id number] Apr, [facility] [address] [facility] [id number], [place] [address] Apr, [facility] [address] [id number] [place] [id number] Sep, [facility] [address] [id number], [place] [address] Sep, [facility] [address] [id number] [place] [id number] Sep, [facility] [address] [id number] [place] [id number] Sep, [facility] [address] [facility] [id number], [place] [address] Jun, [facility] [address] [id number] [place] [id number] Nov, [facility] [address] [id number] [place] [id number] Nov, [facility] [address] [id number] [place] [id number] Nov, [facility] [address] [id number] [place] [id number] Nov, [facility] [address] [id number] [place] [id number] Nov, [facility] [address] [id number] [place] [id number] Nov, [facility] [address] [id number] [place] [id number] Nov, [facility] [address] [id number] [place] [id number] Nov, [facility] [address] [id number] [place] [id number] Nov, [facility] [address] [id number] [id number] Sep, [facility] [address] [id number] [id number] Sep, [facility] [address] [id number] [id number] Sep, [facility] [address] [id number] [id number] Sep, [facility] [address] [id number] [id number] August, [facility] [id number][place] [id number] August, [address] [id number] [id number] August, [id number] [id number] August, [facility] [id number], [place] [address] Sep, IMMUNIZATIONS No Known Immunizations SOCIAL HISTORY Never Assessed REASON FOR VISIT Refill request PLAN OF CARE VITAL SIGNS MEDICATIONS Unknown [...] mid-calf 01/2015 Hospitalization History [facility] In post-op 7 days, discharges with home health -02/2015 Hospitalization History [facility] ER visit for sore on right stump 04/2016 [facility]ization History [facility] wound on left lower leg, culture +for Strep G 12/2016
--- OUTSIDE RECORDS SUMMARY | 2018-10-31 17:48 | XMS REPORT ---
Author ELIA Fournier Organization [employer] Address Unknown Phone Unavailable Care Team Providers Care Barbering Instructor Name Role Phone ELIA VALDEZ CP Unavailable Allergies No Known Allergies Problems Problem Type Condition Code Onset Dates [...] hereditary and idiopathic peripheral neuropathy 356.9 Active Problem Pain in joint, lower leg [...] Instructions Start Date End Date Status Dosage [facility] [address]-00 10 MG Orally Once a day Jan 14, 2015 1 tablet Results No Known Results Summary Purpose eClinicalWorks Submission
--- OUTSIDE RECORDS SUMMARY | 2018-10-31 17:48 | XMS REPORT ---
Author Author [facility] Address [address] [place] [address] Care Team Providers Care Courier Name Role Phone ELIA VALDEZ Unavailable PROBLEMS Type Condition ICD9-CM Code [id number] Code Onset Dates Condition Status SNOMED Code Problem Other and unspecified hyperlipidemia 272.4 Active 54720181 Problem Open wound of foot except toe(s) alone, without mention of complication 892.0 Active 29653229 Problem Diabetes mellitus without mention of complication, type II or unspecified type, not stated as uncontrolled 250.00 Active 921431979 Problem Phantom pain R52 Active 276655797 Problem Cellulitis and abscess of leg, except foot 682.6 Active 300150673 Problem Mild intermittent asthma without complication J45.20 Active 765392255 Problem Other follow-up examination V67.59 Active 705644358 Problem Unspecified disorder of skin and subcutaneous tissue 709.9 Active 38876244 Problem DM neuro manif type II E11.49 Active 32501200 Problem Diabetes type 2, uncontrolled E11.65 Active 628940815 Problem Essential hypertension I10 Active 17760467 Problem Acquired absence of right leg below knee Z89.511 Active 385731014 Problem Diabetes with neurological manifestations, type II or unspecified type, not stated as uncontrolled 250.60 Active 519401801 Problem Cellulitis and abscess of neck 682.1 Active 342168749 Problem Depressive disorder, not elsewhere classified 311 Active 17267650 Problem Reflux esophagitis 530.11 Active 368605957 Problem Cavus deformity of foot, 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 Active 80489689 Problem Ulcer of other part of foot 707.15 Active 45605601 Problem Pain in joint, pelvic region and thigh 719.45 Active 442672794 Problem Unspecified hereditary and idiopathic peripheral neuropathy 356.9 Active 027754315 Problem Pain in joint, lower leg 719.46 Active 337660003 Problem Swelling of limb 729.81 Active 54134889 Problem Cellulitis and abscess of foot, except toes 682.7 Active 261142962 ALLERGIES Unknown Allergies SOCIAL HISTORY No smoking Hx information available PLAN OF CARE VITAL SIGNS MEDICATIONS Unknown Medications RESULTS No Results PROCEDURES No Known procedures IMMUNIZATIONS No Known Immunizations
--- OUTSIDE RECORDS SUMMARY | 2018-10-31 17:48 | XMS REPORT ---
Author Author [facility] Address [address] [place] [address] Care Team Providers Care Vat House Supervisor Name Role Phone JERRICA MENDEZ Unavailable PROBLEMS Type Condition ICD9-CM Code MMA69-EL Code Onset Dates Condition Status SNOMED Code Problem Other follow-up examination V67.59 Active 719330063 Problem Other and unspecified hyperlipidemia 272.4 Active 91682284 Problem Open wound of foot except toe(s) alone, without mention of complication 892.0 Active 49641235 Problem Diabetes mellitus without mention of complication, type II or unspecified type, not stated as uncontrolled 250.00 Active 138693854 Problem Cavus deformity of foot, 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 Active 74898180 Problem Diabetes with neurological manifestations, type II or unspecified type, not stated as uncontrolled 250.60 Active 537232934 Problem DM 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 Active 05759363 Problem Diabetes type 2, uncontrolled E11.65 Active 947894788 Problem Cellulitis of left lower extremity L03.116 Active 284575019 Problem Obstructive sleep apnea syndrome G47.33 Active 01015850 Problem Unspecified disorder of skin and subcutaneous tissue 709.9 Active 53352738 Problem Pain in joint, pelvic region and thigh 719.45 Active 736370756 Problem Pain in joint, lower leg 719.46 Active 283317948 Problem Phantom pain R52 Active 242363504 Problem Acquired absence of right leg below knee Z89.511 Active 405543272 Problem Mild intermittent asthma without complication J45.20 Active 346547742 Problem Essential hypertension I10 Active 86630618 Problem Cellulitis and abscess of foot, except toes 682.7 Active 383760301 Problem Cellulitis and abscess of leg, except foot 682.6 Active 345620766 Problem Ulcer of other part of foot 707.15 Active 79508365 Problem Swelling of limb 729.81 Active 59040591 Problem Unspecified hereditary and idiopathic peripheral neuropathy 356.9 Active 443867604 Problem Depressive disorder, not elsewhere classified 311 Active 81710533 Problem Cellulitis and abscess of neck 682.1 Active 109731101 Problem Reflux esophagitis 530.11 Active 314735973 ALLERGIES Substance Reaction Event Type Date Status Victoza vomiting Drug Allergy August, Active Lopid vomiting Drug Allergy August, Active Cleocin vomiting Drug Allergy August, Active Cephalexin rash Drug Allergy August, Active SOCIAL HISTORY Never Assessed PLAN OF CARE Activity Details Follow Up 4 Weeks Reason:dm VITAL SIGNS Height 72 in 2016-08-17 Weight 304.2 lbs 2016-08-17 Temperature 97.7 degrees Fahrenheit 2016-08-17 Heart Rate 84 bpm 2016-08-17 Respiratory Rate 16 2016-08-17 BMI 41.25 kg/m2 2016-08-17 Blood pressure systolic 138 mmHg 2016-08-17 Blood pressure diastolic 78 mmHg 2016-08-17 MEDICATIONS Medication Instructions Dosage Frequency Start Date End Date Duration Status Humalog 100 UNIT/ML Subcutaneous 3 times a day with meals 30 Units Active Omeprazole 20 MG Orally Once a day 1 capsule 24h 30 days Active Leg Prosthesis N/A DON: 99 as directed Right below knee definitive Nov, Active Diovan HCT 160-12.5 MG Orally Once a day take 1 tablet 24h Active BD Pen Needle Nedra U/F 32G X 4 MM as directed 8h Sep, Active Gabapentin 600 MG Orally Three times a day 1 capsule 1 tab qhs x 5 d then bid x 5 d then tid 8h Dec, Active BD Insulin Syringe 27G X 1/2 as directed Oct, 30 days Active Zoloft 50 mg Orally Once a day 1 .5 tablet 24h Active Blood Pressure Kit ... as directed Mar, Active ProAir HFA 108 (90 Base) MCG/ACT Inhalation every 4-6 hours as needed 2 puffs Jul, Active Blood Glucose Test Strip Test Strips [...] PRN 1 tablet as needed Feb, Active Gemfibrozil 600 MG Orally twice a day take 1 tablet 12h Active Tresiba FlexTouch 200 UNIT/ML Subcutaneous 2 times a day 102 units 12h 20 Sep, 2015 Active Potassium Chloride 20 MEQ Orally Once a day 1 tablet 24h 28 Dec, 2014 Active RESULTS No Results PROCEDURES No Known [...] 11/2014 Surgical History amputation right mid-calf/foot at [facility] 01/2015 Hospitalization History [facility] post op infection to right foot, amputations to mid-calf 01/2015 Hospitalization History [facility] post-op 7 days, discharges with home health -02/[address] [facility] ER visit for sore on right stump 04/2016 Hospitalization History [facility] wound on left lower leg, culture +for Strep G 12/2016
--- OUTSIDE RECORDS SUMMARY | 2018-10-31 17:49 | XMS REPORT ---
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 Active Problem Swelling of limb 729.81 Active Problem Open wound of foot except toe(s) alone, without mention of complication 892.0 Active Problem Diabetes mellitus without mention of complication, type II or unspecified type, not stated as uncontrolled 250.00 Active Problem Diabetes type 2, uncontrolled E11.65 Active Problem Unspecified hereditary and idiopathic peripheral neuropathy 356.9 Active Problem Ulcer of other part of foot 707.15 Active Problem Other and unspecified hyperlipidemia 272.4 Active Problem Cellulitis and abscess of foot, except toes 682.7 Active Problem Pain in joint, lower leg 719.46 Active Problem Unspecified disorder of skin and subcutaneous tissue 709.9 Active Problem Depressive disorder, not elsewhere classified 311 Active Problem Reflux esophagitis 530.11 Active Problem Other follow-up examination V67.59 Active Problem Diabetes with neurological manifestations, type II or unspecified type, not stated as uncontrolled 250.60 Active Problem Cellulitis and abscess of leg, except foot 682.6 Active Problem Cellulitis and abscess of neck 682.1 Active Medications Medication Code System Code Instructions Start Date End Date Status Dosage Singulair [facility] [address]-40 10 mg Orally Once a day 1 tablet in the evening Diovan HCT [facility] [address]-08 160-12.5 MG Orally Once a day Feb 01, 2014 take 1 tablet Results No Known Results Summary Purpose eClinicalWorks Submission
--- OUTSIDE RECORDS SUMMARY | 2018-10-31 17:49 | XMS REPORT ---
Author Author BEAR MOURA Organization [facility] Address [address] [place] [address] Care Team Providers Care Communication Clerk Name Role Phone BEAR MOURA Unavailable PROBLEMS Type Condition ICD9-CM Code HRS14-GL Code Onset Dates Condition Status SNOMED Code Problem Other and unspecified hyperlipidemia 272.4 Active 95247711 Problem Diabetes with neurological manifestations, type II or unspecified type, not stated as uncontrolled 250.60 Active 973223656 Problem Diabetes mellitus without mention of complication, type II or unspecified type, not stated as uncontrolled 250.00 Active 499995156 Problem Essential hypertension I10 Active 98127256 Problem Pain in joint, lower leg 719.46 Active 722251869 Problem Mild intermittent asthma without complication J45.20 Active 179714726 Problem Cavus deformity of foot, 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 Active 15094672 Problem Open wound of foot except toe(s) alone, without mention of complication 892.0 Active 16015792 Problem DM neuro manif type II E11.49 Active 48443595 Problem Diabetes type 2, uncontrolled E11.65 Active 688048777 Problem Phantom pain R52 Active 511644434 Problem Acquired absence of right leg below knee Z89.511 Active 916545993 Problem Ulcer of other part of foot 707.15 Active 10878743 Problem Swelling of limb 729.81 Active 19467932 Problem Pain in joint, pelvic region and thigh 719.45 Active 528785614 Problem Unspecified disorder of skin and subcutaneous tissue 709.9 Active 46057032 Problem Cellulitis and abscess of neck 682.1 Active 362364475 Problem Reflux esophagitis 530.11 Active 630191775 Problem Cellulitis and abscess of foot, except toes 682.7 Active 766043628 Problem Unspecified hereditary and idiopathic peripheral neuropathy 356.9 Active 546365257 Problem Other follow-up examination V67.59 Active 532999600 Problem Cellulitis and abscess of leg, except foot 682.6 Active 865750388 Problem Depressive disorder, not elsewhere classified 311 Active 99473758 ALLERGIES Substance Reaction Event Type Date Status Victoza vomiting Drug Allergy Apr, Active Lopid vomiting Drug Allergy Apr, Active Cleocin vomiting Drug Allergy Apr, Active Cephalexin rash Drug Allergy Apr, Active SOCIAL HISTORY Never Assessed PLAN OF CARE Activity Details Follow Up 2 - 3 Days Reason:Wound FU with PCP VITAL SIGNS Height 72 in 2016-05-04 Weight 297.0 lbs 2016-05-04 Temperature 96.7 degrees Fahrenheit 2016-05-04 Heart Rate 88 bpm 2016-05-04 Respiratory Rate 16 2016-05-04 BMI 40.28 kg/m2 2016-05-04 Blood pressure systolic 122 mmHg 2016-05-04 Blood pressure diastolic 78 mmHg 2016-05-04 MEDICATIONS Medication Instructions Dosage Frequency Start Date End Date Duration Status Gemfibrozil 600 MG Orally twice a day take 1 tablet 12h Active Blood Glucose Test Strip Test Strips as directed 8h Dec, 30 days Active Bactroban 2 % Externally to leg wound 2 times a day 1 application to affected area 12h Apr, 2 May, 2016 10 days Active Amlodipine Besylate 10 mg Orally Once a day 1 tablet 24h Active Omeprazole 20 MG Orally Once a day 1 capsule 24h 30 days Active Test strips ... subcutaneously 2 times a day as directed 12h Feb, Active BD Pen Needle Nedra U/F 32G X 4 MM as directed 8h Sep, Active Amitriptyline HCl 100 MG Orally Once a day at bedtime 1tablet August, Active Potassium Chloride 20 MEQ Orally Once a day 1 tablet 24h Dec, Active Humalog 100 UNIT/ML Subcutaneous 3 times a day with meals 30 Units Active Advocate Insulin Pen [place] 31G X 8 MM subcutaneous 3 times a day as directed 8h Oct, 30 days Active Blood Pressure Kit ... as directed Mar, Active Singulair 10 mg Orally Once a day 1 tablet in the evening 24h Active Hydrocodone-Acetaminophen 7.5-325 MG Orally every 6 hrs PRN 1 tablet as needed Feb, Active Gabapentin 400 MG Orally Three times [...] hours as needed 2 puffs Jul, Active Diovan HCT 160-12.5 MG Orally Once a day take 1 tablet 24h Active Bactrim DS 800-160 MG Orally Twice a day 1 tablet 12h Active Silvadene 1 % Externally Once a day 1 application to affected area 24h Sep, Active Zoloft 100 MG Orally Once a day 1 tablet 24h Active BD Insulin Syringe 27G X 1/2 subcutaneous 5 times a day DX 250.00 as directed Oct, 30 days Active Tresiba FlexTouch 200 UNIT/ML Subcutaneous 2 times a day 96 units 12h Sep, Active RESULTS No Results PROCEDURES No [...] [facility] 01/2015 Hospitalization History [facility] post op infection to right foot, amputations to mid-calf 01/2015 Hospitalization History [facility] post-op 7 days, discharges with home health -02/[address] [facility] ER visit for sore on right stump 04/2016 Hospitalization [facility] wound on left lower leg, culture +for Strep G 12/2016
--- OUTSIDE RECORDS SUMMARY | 2018-10-31 17:49 | XMS REPORT ---
Author Author ELIA VALDEZ [employer] Address Unknown Phone Unavailable Care Team Providers Care Cp Bleacher Operator Name Role Phone ELIA VALDEZ Unavailable Allergies, Adverse Reactions, Alerts Substance Reaction [...] alone, without mention of complication 892.0 Active Assessment Erectile disorder due to medical condition in male N52.1 Active Problem Diabetes mellitus without mention of [...] of skin and subcutaneous tissue 709.9 Active Assessment Leg wound, left, initial encounter S81.802A Active Assessment Diabetes type 2, uncontrolled E11.65 Active Problem Depressive disorder, not elsewhere classified [...] Instructions Start Date End Date Status Dosage Neurontin [facility] [address]-81 600 MG Orally 2 times a day. 1 in AM, 1 in PM 1 tablet Amitriptyline HCl [facility] [address]-91 100 MG Orally Once a day at bedtime August 29, 2014 1tablet Potassium Chloride [facility] [address]-90 20 MEQ Orally Once a day Jan 07, 2015 1 tablet Metformin HCl [facility] 94853986562 1000 MG Orally Twice a day 1 tablet with meals Medical Compression Stockings [place] 0 ... Terrell high measure to fit July 24, 2015 as directed Tresiba FlexTouch [facility] [address]-47 200 UNIT/ML Subcutaneous September 30, 2015 70 units in am and 70 units in pm Norvasc [facility] 86848572104 10 MG Orally Once a day 1 tablet Advocate Insulin Pen [place] [facility] [address] 31G X 8 MM subcutaneous 3 times a day October 17, 2014 as directed Humalog [facility] [address]-53 100 UNIT/ML Subcutaneous 3 times a day with meals 30 Units Bathtub Safety Rail [facility] 0 ... July 24, 2015 as directed Zoloft [facility] [address]-41 100 MG Orally Once a day Feb 01, 2014 1 tablet BD Insulin Syringe [facility] 8290-158311 27G X 1/2 subcutaneous 5 times a day DX 250.00 October 16, 2014 as directed Silvadene [facility] [address]-87 1 % Externally Once a day September 30, 2015 1 application to affected area Omeprazole [facility] [address]-19 20 MG Orally Once a day 1 capsule Diovan HCT [facility] [address]-65 160-12.5 MG Orally Once a day Feb 01, 2014 take 1 tablet Hydrocodone-Acetaminophen [facility] [address]-97 7.5-325 MG Orally every 6 hrs PRN Feb 27, 2015 1 tablet as needed Viagra [facility] [address]-06 50 mg Orally Once a day PRN September 30, 2015 October 30, 2015 1 tablet as needed ProAir HFA [facility] [address]-32 108 (90 Base) MCG/ACT Inhalation every 4-6 hours as needed July 31, 2015 2 puffs Gemfibrozil [facility] 15081094088 600 MG Orally Once a day take 1 tablet Blood Glucose Test Strip [facility] 0 Test Strips 3 times a day Jan 04, 2015 as directed Neurontin [facility] [address]-94 300 MG Orally Once a day in afternoon August 29, 2014 1 capsule Singulair [facility] [address]-44 10 MG Orally Once a day 1 tablet in the evening Omeprazole [facility] 49501024885 20 MG Orally Once a day 1 capsule BD Pen Needle Nedra U/F [facility] 0490-256961 32G X 4 MM 3 times a day September 30, 2015 as directed Procedures Procedure Coding System Code Date LAB NOT BILLED [facility] CPT-4 NOBLL September 30, 2015 VENIPUNCT, ROUTINE* CPT-4 75891 September 30, 2015 GLYCATED HEMOGLOBIN TEST CPT-4 09830 September 30, 2015 Office Visit, Est Pt., Level 3 CPT-4 50291 September 30, 2015 Vital Signs Date/Time: September 30, 2015 Cardiac Monitoring Heart Rate 90 bpm Weight 298.1 lbs Height 72 in BMI 40.43 Index Blood Pressure Diastolic 94 mmHg Blood Pressure Systolic 160 mmHg Results No Known Results Summary Purpose eClinicalWorks Submission
--- OUTSIDE RECORDS SUMMARY | 2018-10-31 17:49 | XMS REPORT ---
Author Author ELIA VALDEZ [facility] eClinical[employer] Address Unknown Phone Unavailable Care Team Providers Care Detasseling Crew Supervisor Name Role Phone ELIA VALDEZ CP Unavailable [...] and abscess of neck 682.1 Active Medications No Known Medications Results No Known Results Summary Purpose [employer] Submission
--- OUTSIDE RECORDS SUMMARY | 2018-10-31 17:49 | XMS REPORT ---
Author Author JERRICA MENDEZ [facility] Address [address] [place] [address] Care Team Providers Care Painter Rough Name Role Phone JERRICA MENDEZ Unavailable PROBLEMS Type Condition ICD9-CM Code KOT51-AI Code Onset Dates Condition Status SNOMED Code Problem Cellulitis of left lower extremity L03.116 Active 110063733 Problem Reflux esophagitis K21.0 Active 143559442 Problem Acute pain of left shoulder M25.512 Active 82239966 Problem Skin ulcer of left lower leg, limited to breakdown of skin L97.921 Active 41685071 Problem Reflux esophagitis 530.11 Active 555664398 Problem Erectile dysfunction, unspecified erectile dysfunction type N52.9 Active 389048934 Problem Wheelchair bound Z99.3 Active 157942516 Problem Hammertoe of left foot M20.42 Active 345357906 Problem Venous insufficiency (chronic) (peripheral) I87.2 Active 20098733 Problem 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 Active 179021986 Problem Other and unspecified hyperlipidemia 272.4 Active 20667322 Problem Diabetes type 2, uncontrolled E11.65 Active 781333117 Problem Unspecified hereditary and idiopathic peripheral neuropathy 356.9 Active 541635291 Problem Depressive disorder, not elsewhere classified 311 Active 69838747 Problem Phantom pain R52 Active 430725282 Problem Essential hypertension I10 Active 61480633 Problem DM neuro manif type II E11.49 Active 89290387 Problem Mild intermittent asthma without complication J45.20 Active 634847561 Problem Acquired absence of right leg below knee Z89.511 Active 880738703 Problem Obstructive sleep apnea syndrome G47.33 Active 38722352 ALLERGIES No Information ENCOUNTERS Encounter Location Date Diagnosis [facility] [address] [facility] [id number] [place] [address] Sep, [facility] [address] [facility] [id number] [id number] August, [facility] [address] [id number] [phone] Jul, Skin ulcer of left lower leg, limited to breakdown of skin L97.921 [facility] [id number] [place] [address] [id number] Jul, [facility] [id number] [place] [address] [id number] Jul, BMI 40.0-44.9, adult Z68.41 ; Skin ulcer of left lower leg, limited to breakdown of skin L97.921 and DM neuro manif type II E11.49 [place] [address] [address] Jul, [facility] [id number] [place] [address] [id number] Jul, [facility] [id number] [place] [address] [id number] Jul, [facility] [id number] [place] [address] [phone] Jun, Erectile dysfunction, unspecified erectile dysfunction type N52.9 [place] [id number] [place] [address] Jun, [id number] [place] [address] [phone] Jun, BMI 40.0-44.9, adult Z68.41 ; Diabetes type 2, uncontrolled E11.65 ; Phantom pain R52 ; Subluxation of right shoulder joint, sequela S43.001S and Erectile dysfunction, unspecified erectile dysfunction type N52.9 [facility] [id number] [place] [address] Jun, DM neuro manif type II E11.49 ; Onychomycosis B35.1 and Hammertoe of left foot M20.42 [place] [id number] [place] [address] Jun, [facility] [id number] [place] [address] [phone] Jun, DM neuro manif type II E11.49 [place] [address] [facility] [id number] [phone] Jun, DM neuro manif type II E11.49 [facility] [id number], [place] [phone] May, DM neuro manif type II E11.49 ; Venous insufficiency (chronic) (peripheral) I87.2 ; 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 ; Essential hypertension I10 and Phantom pain R52 [facility] [address] [facility] [id number][place] [phone] Apr, Diabetes type 2, uncontrolled E11.65 ; Acquired absence of right leg below knee Z89.511 ; Essential hypertension I10 ; Reflux esophagitis K21.0 and Phantom pain R52 [facility] [address] [facility] [id number] [place] [address] [id number] Apr, BMI 40.0-44.9, adult Z68.41 and Wheelchair bound Z99.3 [facility] [address] [facility] [id number], [place] [id number] Mar, [facility] [id number] [place] [address] [id number] Mar, BMI 40.0-44.9, adult Z68.41 ; Diabetes type 2, uncontrolled E11.65 ; Mild intermittent asthma without complication J45.20 ; Phantom pain R52 ; Reflux esophagitis K21.0 and Essential hypertension I10 [facility] [address] [facility] [id number][place] [phone] Feb, Phantom pain R52 [facility] [address] [facility] [id number] [place] [address] [id number] Feb, Phantom pain R52 and Acute pain of left shoulder M25.512 [facility] [id number] [place] [address] [id number] Jan, Phantom pain R52 [facility] [id number] [place] [address] [id number] Jan, DM neuro manif type II E11.49 ; Cellulitis of left lower extremity L03.116 ; Obstructive sleep apnea syndrome G47.33 ; Thyroid disorder screen Z13.29 and Lipid screening Z13.220 [facility] [id number] [place] [address] [id number] Jan, [facility] [address] [id number] Dec, DM neuro manif type II E11.49 ; Phantom pain R52 and Mild intermittent asthma without complication J45.20 [facility] [id number] [place] [address] [id number] Dec, Wound of left lower extremity, subsequent encounter S81.802D [facility] [id number] [place] [address] [id number] Nov, [facility] [id number] [place] [address] Nov, [facility] [id number] [place] [address] [phone] Nov, DM neuro manif type II E11.49 ; Mild intermittent asthma without complication J45.20 ; Essential hypertension I10 and Phantom pain R52 [facility] [id number] [place] [address] [phone] Oct, Phantom pain R52 [facility] [id number] [place] [address] [id number] Sep, Phantom pain R52 ; DM neuro manif type II E11.49 and Essential hypertension I10 [place] [id number] [place] [address] [id number] August, DM neuro manif type II E11.49 ; Phantom pain R52 and Essential hypertension I10 [facility] [id number] [place] [address] [id number] Jul, DM neuro manif type II E11.49 and Phantom pain R52 [facility] [id number] [place] [address] Jun, Onychomycosis B35.1 and DM neuro manif type II E11.49 [facility] [id number] [place] [address] [id number] Jun, DM neuro manif type II E11.49 ; Phantom pain R52 ; Essential hypertension I10 and Diabetes with neurological manifestations, type II or unspecified type, not stated as uncontrolled 250.60 [facility] [id number] [place] [address] [id number] Apr, DM neuro manif type II E11.49 ; Phantom pain R52 ; Essential hypertension I10 and Mild intermittent asthma without complication J45.20 [facility] [id number] [place] [address] [id number] Apr, Need for follow up care after discharge from healthcare facility Z92.89 and Wound of right lower extremity, subsequent encounter S81.801D [place] [id number] [place] [address] [id number] Mar, Phantom pain R52 ; DM neuro manif type II E11.49 and Essential hypertension I10 [place] [id number] [place] [address] [id number] Feb, DM neuro manif type II E11.49 ; Phantom pain R52 and Essential hypertension I10 [place] [id number] [place] [address] [id number] Jan, Phantom pain R52 and DM neuro manif type II E11.49 [place] [id number] [place] [address] [id number] Dec, [place] [id number] [place] [address] [id number] Dec, DM neuro manif type II E11.49 ; Phantom pain R52 ; Mild intermittent asthma without complication J45.20 and Essential hypertension I10 [facility] [address]00565100[place], [place] [address] Dec, Onychomycosis B35.1 ; Xerosis of skin L85.3 and DM neuro manif type II E11.49 [place] [id number] [place] [address] [id number] Nov, Acquired absence of right leg below knee Z89.511 [facility] [id number] [place] [address] [id number] Nov, [place] [id number] [place] [address] [id number] Nov, [facility] [address] [id number], [place] [phone] Sep, [facility] [id number] [place] [address], [place] [phone] Sep, Diabetes type 2, uncontrolled E11.65 ; Leg wound, left, initial encounter S81.802A and Erectile disorder due to medical condition in male N52.1 [facility] [address] [id number] [place] [phone] Sep, [facility] [address] [id number] [place] [id number] Jul, [facility] [address] [id number] [place] [id number] Jul, [facility] [address] [id number] [place] [phone] Jul, [facility] [id number] [place] [address], [place] [phone] Jul, 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 ; Varicose vein of leg I83.93 ; Diabetes type 2, uncontrolled E11.65 and Chronic pain G89.29 [facility] [address] [id number] [place] [phone] Jul, [facility] [id number] [place] [address], [place] [phone] Jul, Diabetes with neurological manifestations, type II or unspecified type, not stated as uncontrolled 250.60 [facility] [address] [id number], [place] [id number] Jul, [facility] [id number] [place] [address] [id number] Jul, [facility] [address] [id number] [place] [id number] Jun, Diabetes type 2, uncontrolled E11.65 [facility] [address] [id number] [place] [id number] Jun, Pain in right knee M25.561 ; Pain in left knee M25.562 ; Other chronic pain G89.29 and Primary osteoarthritis of both knees M17.0 [facility] [address] [id number], [place] [id number] Apr, Diabetes type 2, uncontrolled E11.65 ; Puncture wound of foot, left, initial encounter S91.332A and Encounter for immunization Z23 [facility] [id number] [place] [address] [id number] Apr, [facility] [id number] [place] [address] [id number] Apr, [facility] [id number] [place] [address] [id number] Feb, Acquired absence of right leg below knee Z89.511 [facility] [id number] [place] [address] [id number] Feb, Acquired absence of right leg below knee Z89.511 [facility] [id number] [place] [address] [id number] Feb, Diabetes type 2, uncontrolled E11.65 and Acquired absence of right leg below knee Z89.511 [facility] [id number] [place] [address] [id number] Jan, [place] [id number] [place] [address] [id number] Jan, [facility] [address]00565100[place], [place] [address] Jan, [facility] [address]00565[place] [id number] Jan, [facility] [id number] [place] [id number] Dec, [facility] [id number] [place] [address] [id number] Dec, Diabetes with neurological manifestations, type II or unspecified type, not stated as uncontrolled 250.60 and Open wound of foot except toe(s) alone, without mention of complication 892.0 [facility] [id number] [place] [address] [id number] Dec, [facility] [id number] [place] [address] [id number] Nov, [facility] [address] [id number] [id number] Nov, Cellulitis of foot 682.7 [facility] [id number], [place] [id number] Oct, [facility] [id number] [place] [address] [id number] Oct, Corneal abrasion 918.1 [facility] [id number] [place] [address] [id number] Oct, [facility] [id number] [place] [address] [id number] Oct, [facility] [id number] [place] [address] [id number] August, [facility] [id number] [place] [address] [id number] August, [facility] [id number] [place] [address] [id number] August, [facility] [id number] [place] [address] [id number] August, [facility] [id number], [place] [id number] August, Diabetes mellitus without mention of complication, type II or unspecified type, not stated as uncontrolled 250.00 [facility] [id number] [place] [address] Jul, [facility] [id number] [place] [address] Jul, [facility] [id number] [place] [address] Apr, [facility] [id number] [place] [address] Apr, [facility] [id number] [place] [address] Mar, [facility] [id number] [place] [address] Mar, [facility] [address] [place] [address] Mar, [facility] [place] [facility] [address] [facility] [id number] [place] [address] Mar, [facility] [place] [facility] [address] [facility] [id number], [place] [address] Mar, [facility] [address] [facility] [id number], [place] [address] Mar, [facility] [address] [facility] [id number], [place] [id number] Mar, [facility] [place] [facility] [address] [facility] [id number] [place] [address] Mar, [facility] [place] [facility] [address] [facility] [id number], [place] [address] Mar, [facility] [place] [facility] [address]65[address], [place] [address] Mar, [facility] [place] [facility] [address] [facility] [id number], [place] [address] Mar, [facility] [place] [facility] [address] [id number], [place] [address] Mar, [facility] [place] [facility] [address] [id number], [place] [address] Mar, [facility] [address]00565[address], [place] [id number] Mar, [facility] [place] [facility] [address] [facility] [id number], [place] [address] Jan, [facility] [address] [facility] [id number], [place] [id number] Jan, [facility] [place] [facility] [address] [facility] [id number], [place] [address] Jan, [facility] [place] [facility] [address] [facility] [id number], [place] [address] Jan, [facility] [place] [facility] [address] [facility] [id number] [place] [address] Jan, [facility] [address] [id number] [place] [id number] Jan, [facility] [place] [facility] [address] [id number] [place] [address] Dec, [facility] [address] [id number] [place] [id number] Nov, [facility] [place] [facility] [address] [id number] [place] [address] Nov, [facility] [address] [id number] [place] [id number] Oct, [facility] [place] [facility] [address] [id number] [place] [address] Oct, [facility] [address] [id number] [place] [id number] Oct, [facility] [place] [facility] [address] [id number] [place] [address] Oct, [facility] [place] [facility] [address] [id number] [place] [address] August, [facility] [place] [facility] [address] [facility] [id number] [place] [address] August, [facility] [place] [facility] [address] [facility] [id number] [place] [address] August, [facility] [place] [facility] [address] [facility] [id number], [place] [address] August, [facility] [address] [id number] [place] [id number] Jul, [facility] [place] [facility] [address] [id number] [place] [address] Jul, [facility] [address] [id number] [place] [id number] Jun, [facility] [place] [facility] [address] [id number] [place] [address] Jun, [facility] [address] [id number] [place] [phone] Jun, [facility] [place] [facility] [address] [id number], [place] [address] Jun, [facility] [address] [facility] [id number] [place] [id number] Jun, [facility] [place] [facility] [address] [facility] [id number], [place] [address] Jun, [facility] [address] [facility] [id number] [place] [phone] Jun, [facility] [place] [facility] [address] [facility] [id number] [place] [address] Jun, [facility] [address] [facility] [id number] [place] [id number] May, [facility] [place] [facility] [address] [id number], [place] [address] May, [facility] [address] [facility] [id number] [place] [id number] May, [facility] [place] [facility] [address] [facility] [id number], [place] [address] May, [facility] [place] [facility] [address] [facility] [id number] [place] [address] May, [facility] [place] [facility] [address] [id number], [place] [address] May, [facility] [address] [facility] [id number], [place] [id number] May, [facility] [place] [facility] [address] [facility] [id number] [place] [address] May, [facility] [address] [facility] [id number] [place] [id number] May, [facility] [place] [facility] [address] [facility] [id number], [place] [address] May, [facility] [place] [facility] [address] [facility] [id number], [place] [address] Apr, [facility] [address] [id number], [place] [address] Apr, [facility] [address] [id number], [place] [id number] Apr, [facility] [address] [facility] [id number], [place] [address] Apr, [facility] [address] [id number], [place] [id number] Sep, [facility] [address] [facility] [id number], [place] [address] Sep, [facility] [address] [id number] [place] [id number] Sep, [facility] [address] [id number] [place] [id number] Sep, [facility] [address] [facility] [id number], [place] [address] Jun, [facility] [address] [id number] [place] [id number] Nov, [facility] [address] [id number] [place] [id number] Nov, [facility] [address] [id number] [place] [id number] Nov, [facility] [address] [id number] [place] [id number] Nov, [facility] [address] [id number] [place] [id number] Nov, [facility] [address] [id number] [place] [id number] Nov, [facility] [address] [id number] [place] [id number] Nov, [facility] [address] [id number] [place] [id number] Nov, [facility] [address] [id number] [place] [id number] Nov, [facility] [address] [id number][place] [id number] Sep, [facility] [address] [id number] [id number] Sep, [facility] [address] [id number][place] [id number] Sep, [facility] [address] [id number][place] [id number] Sep, [facility] [id number][place] [id number] August, [facility] [address] [id number] [id number] August, [facility] [id number][place] [id number] August, [facility] [address] [id number][place] [id number] August, [facility] [address] [id number], [place] [address] Sep, IMMUNIZATIONS No Known Immunizations SOCIAL HISTORY Never Assessed REASON FOR VISIT Waiting for call back PLAN OF CARE VITAL SIGNS MEDICATIONS Unknown [...] Surgical History amputation right mid-calf/foot at [facility] 01/2015 Hospitalization History [facility] post op infection to right foot, amputations to mid-calf 01/2015 Hospitalization History [facility] post-op 7 days, discharges with home health -02/2015 Hospitalization History [facility] ER visit for sore on right stump 04/2016 Hospitalization History [facility] wound on left lower leg, culture +for Strep G 12/2016
--- OUTSIDE RECORDS SUMMARY | 2018-10-31 17:49 | XMS REPORT ---
Author ELIA Fournier Organization [employer] Address Unknown Phone Unavailable Care Team Providers Care Horse Stud Manager Name Role Phone ELIA VALDEZ CP Unavailable [...] not stated as uncontrolled 250.60 Active Medications No Known Medications Results No Known Results Summary Purpose [employer] Submission
--- OUTSIDE RECORDS SUMMARY | 2018-10-31 17:49 | XMS REPORT ---
Author ELIA Fournier Organization [employer] Address Unknown Phone Unavailable Care Team Providers Care Commercial Front Load Driver Name Role Phone ELIA VALDEZ CP Unavailable [...] Instructions Start Date End Date Status Dosage Metformin HCl [facility] [place] [address]-49 1000 MG Orally Twice a day Apr 26, 2015 1 tablet with meals Results No Known Results Summary Purpose [employer] Submission
--- OUTSIDE RECORDS SUMMARY | 2018-10-31 17:49 | XMS REPORT ---
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 Active Problem Diabetes type 2, uncontrolled E11.65 Active Problem Open wound of foot except toe(s) alone, without mention of complication 892.0 Active Problem Acquired absence of right leg below knee Z89.511 Active Problem Cellulitis and abscess of foot, except toes 682.7 Active Problem Unspecified hereditary and idiopathic peripheral neuropathy 356.9 Active Problem Diabetes mellitus without mention of complication, type II or unspecified type, not stated as uncontrolled 250.00 Active Problem Other and unspecified hyperlipidemia 272.4 Active Problem Unspecified disorder of skin and subcutaneous tissue 709.9 Active Problem Other follow-up examination V67.59 Active Assessment Acquired absence of right leg below knee Z89.511 Active Problem Pain in joint, lower leg 719.46 Active Problem Reflux esophagitis 530.11 Active Problem Diabetes with neurological manifestations, type II or unspecified type, not stated as uncontrolled 250.60 Active Problem Cellulitis and abscess of leg, except foot 682.6 Active Problem Cellulitis and abscess of neck 682.1 Active Problem Depressive disorder, not elsewhere classified 311 Active Problem Pain in joint, pelvic region and thigh 719.45 Active Medications Medication Code System Code Instructions Start Date End Date Status Dosage Leg Prosthesis NDC 0 N/A DON: 99 as directed Nov 25, 2015 Right below knee definitive Results No Known Results Summary Purpose [employer] Submission
--- OUTSIDE RECORDS SUMMARY | 2018-10-31 17:49 | XMS REPORT ---
Author Author JERRICA MENDEZ Organization [employer] Address Unknown Phone Unavailable Care Team Providers Care Barrel Washer Machine Name Role Phone JERRICA MENDEZ CP Unavailable [...] Start Date End Date Status Dosage Hydrocodone-Acetaminophen [facility] [address]-46 7.5-325 MG Orally every 6 hrs PRN Feb 27, 2015 1 tablet as needed Results No Known Results Summary Purpose [employer] Submission
--- OUTSIDE RECORDS SUMMARY | 2018-10-31 17:50 | XMS REPORT ---
Author ELIA Fournier [facility] eClinicalWorks Address Unknown Phone Unavailable Care Team Providers Care Bottoming Room Supervisor Name Role Phone ELIA VALDEZ CP [...] and idiopathic peripheral neuropathy 356.9 Active Assessment Diabetes type 2, uncontrolled E11.65 Active Problem Pain in joint, lower leg 719.46 Active Assessment Acquired absence of right leg below knee Z89.511 Active Problem Cellulitis and abscess of leg, [...] Instructions Start Date End Date Status Dosage Levemir [facility] [address]-21 100 UNIT/ML Subcutaneous 2 times a day August 29, 2014 70 units Diovan HCT [facility] [address]-98 160-12.5 MG Orally Once a day Feb 01, 2014 take 1 tablet Blood Glucose Test Strip [facility] 0 Test Strips 3 times a day Jan 04, 2015 as directed Neurontin [facility] [address]-85 300 MG Orally Three times a day August 29, 2014 1 capsule BD Insulin Syringe [facility] 8290-428783 27G X 1/2 subcutaneous 5 times a day DX 250.00 October 16, 2014 as directed Gemfibrozil [facility] [address]-16 600 MG Orally Once a day Feb 01, 2014 take 1 tablet Norvasc [facility] [address]-07 10 MG Orally Once a day Jan 14, 2015 1 tablet Potassium Chloride [facility] [address]-58 20 MEQ Orally Once a day Jan 07, 2015 1 tablet Advocate Insulin Pen [place] [facility] [address]401 31G X 8 MM subcutaneous 3 times a day October 17, 2014 as directed Humalog [facility] [address]-75 100 UNIT/ML Subcutaneous 3 times a day with meals 30Units Omeprazole [facility] [address]-91 20 MG Orally Once a day 1 capsule Zoloft [facility] [address]-13 50 MG Orally Once a day Feb 01, 2014 1 tablet Procedures Procedure Coding System Code Date Office Visit, Est Pt., Level 3 CPT-4 47812 Feb 25, 2015 Vital Signs Date/Time: Feb 25, 2015 Temperature 97.6 F Weight 214 lbs Height 72 in BMI 29.02 Index Blood Pressure Diastolic 90 mmHg Blood Pressure Systolic 148 mmHg Cardiac Monitoring Heart Rate 80 bpm Results No Known Results Summary Purpose [employer]ClinicalWorks Submission
--- OUTSIDE RECORDS SUMMARY | 2018-10-31 17:50 | XMS REPORT ---
Author ELIA Fournier Organization eClinicalWorks Address Unknown Phone Unavailable Care Team Providers Care Backend Tester Name Role Phone ELIA VALDEZ CP Unavailable [...] Instructions Start Date End Date Status Dosage NovoLog Flexpen [facility] [address]-12 100 UNIT/ML Subcutaneous 3 times a day. MUST BE SEEN PRIOR TO FURTHER REFILLS November 01, 2013 30 Units Results No Known Results Summary Purpose [employer] Submission
--- OUTSIDE RECORDS SUMMARY | 2018-10-31 17:50 | XMS REPORT ---
Author ELIA Fournier [facility] eClinicalWorks Address Unknown Phone Unavailable Care Team Providers Care Coffee Shop Aide Name Role Phone ELIA VALDEZ CP Unavailable [...] without mention of complication 892.0 Active Assessment Encounter for immunization Z23 Active Problem Diabetes mellitus without mention of [...] skin and subcutaneous tissue 709.9 Active Assessment Puncture wound of foot, left, initial encounter S91.332A Active Assessment Diabetes type 2, uncontrolled E11.65 [...] Instructions Start Date End Date Status Dosage Humalog [facility] [address]-21 100 UNIT/ML Subcutaneous 3 times a day with meals 30 Units Advocate Insulin Pen [place] [facility] 500[address]-99184 31G X 8 MM subcutaneous 3 times a day October 17, 2014 as directed Amitriptyline HCl [facility] [address]-16 100 MG Orally Once a day at bedtime August 29, 2014 1tablet Neurontin [facility] [address]-32 300 MG Orally Once a day in afternoon August 29, 2014 1 capsule BD Insulin Syringe [facility] 8290-922359 27G X 1/2 subcutaneous 5 times a day DX 250.00 October 16, 2014 as directed Singulair [facility] [address]-33 10 MG Orally Once a day 1 tablet in the evening Augmentin [facility] [address]-39 875-125 MG Orally every 12 hrs May 01, 2015 May 11, 2015 1 tablet Norvasc [facility] [address]-88 10 MG Orally Once a day Jan 14, 2015 1 tablet Neurontin [facility] [address]-48 600 MG Orally 2 times a day. 1 in AM, 1 in PM 1 tablet Diovan HCT [facility] [address]-56 160-12.5 MG Orally Once a day Feb 01, 2014 take 1 tablet Levemir [facility] [address]-27 100 UNIT/ML Subcutaneous 2 times a day August 29, 2014 70 units Blood Glucose Test Strip [facility] 0 Test Strips 3 times a day Jan 04, 2015 as directed Hydrocodone-Acetaminophen [facility] [address]-77 7.5-325 MG Orally every 6 hrs PRN Feb 27, 2015 1 tablet as needed Zoloft [facility] [address]-57 50 MG Orally Once a day Feb 01, 2014 1 tablet Potassium Chloride [facility] [address]-96 20 MEQ Orally Once a day Jan 07, 2015 1 tablet Metformin HCl [facility] [address]-28 1000 MG Orally Twice a day Apr 26, 2015 1 tablet with meals Omeprazole [facility] [address]-98 20 MG Orally Once a day 1 capsule Gemfibrozil [facility] [address]-14 600 MG Orally Once a day Feb 01, 2014 take 1 tablet Procedures Procedure Coding System Code Date TDAP (BOOSTRIX) CPT-4 44561 May 01, 2015 SINGLE IMMUNIZATION ADMIN CPT-4 38181 May 01, 2015 GLYCATED HEMOGLOBIN TEST CPT-4 48941 May 01, 2015 Office Visit, Est Pt., Level 3 CPT-4 35321 May 01, 2015 Vital Signs Date/Time: May 01, 2015 Temperature 96.4 F Weight 295.0 lbs Height 72 in BMI 40.00 Index Blood Pressure Diastolic 88 mmHg Blood Pressure Systolic 138 mmHg Cardiac Monitoring Heart Rate 104 bpm Results Name Result Date Reference Range Unit Abnormality Flag A1C (IN HOUSE) ----A1C IN HOUSE 10.8 20150501 4.3 - 5.6 % ----Previous A1c 8.8 [id number] ----Lot [id number] ----Exp date [id number] Immunizations Vaccine Administration Date TDAP (BOOSTRIX) May 01, 2015 TDAP (BOOSTRIX) May 01, 2015 Summary Purpose [employer]ClinicalWorks Submission
--- OUTSIDE RECORDS SUMMARY | 2018-10-31 17:50 | XMS REPORT ---
Author ELIA Fournier [facility] eClinicalWorks Address Unknown Phone Unavailable Care Team Providers Care Manager Paper Name Role Phone ELIA VALDEZ Unavailable Allergies, [...] idiopathic peripheral neuropathy 356.9 Active Assessment Diabetes with neurological manifestations, type II or unspecified type, not stated as uncontrolled 250.60 Active Problem Pain in joint, lower leg 719.46 Active Assessment Open wound of foot except toe(s) alone, without mention of complication 892.0 Active Problem Cellulitis and abscess of leg, [...] Instructions Start Date End Date Status Dosage Amitriptyline HCl [facility] [address]-25 100 MG Orally Once a day at bedtime August 29, 2014 1tablet Neurontin [facility] [address]-81 300 MG Orally Three times a day August 29, 2014 1 capsule Blood Glucose Test Strip [facility] 0 Test Strips 3 times a day Jan 04, 2015 as directed Gemfibrozil [facility] [address]-80 600 MG Orally Once a day Feb 01, 2014 take 1 tablet Advocate Insulin Pen [place] [facility] 230[address]-00351 31G X 8 MM subcutaneous 3 times a day October 17, 2014 as directed Levemir [facility] [address]-29 100 UNIT/ML Subcutaneous 2 times a day August 29, 2014 100 units Zoloft [facility] [address]-47 50 MG Orally Once a day Feb 01, 2014 1 tablet Singulair [facility] [address]-64 10 MG Orally Once a day 1 tablet in the evening BD Insulin Syringe [facility] 8290-565718 27G X 1/2 subcutaneous 5 times a day DX 250.00 October 16, 2014 as directed Omeprazole [facility] [address]-63 20 MG Orally Once a day 1 capsule NovoLog Flexpen [facility] [address]-50 100 UNIT/ML Subcutaneous 3 times a day. MUST BE SEEN PRIOR TO FURTHER REFILLS November 01, 2013 30 Units Diovan HCT [facility] [address]-24 160-12.5 MG Orally Once a day Feb 01, 2014 take 1 tablet Procedures Procedure Coding System Code Date Office Visit, Est Pt., Level 3 CPT-4 65493 Jan 04, 2015 GLYCATED HEMOGLOBIN TEST CPT-4 48146 Jan 04, 2015 Vital Signs Date/Time: Jan 04, 2015 Temperature 97 F Weight 209.3 lbs Height 72 in BMI 28.38 Index Blood Pressure Diastolic 70 mmHg Blood Pressure Systolic 130 mmHg Cardiac Monitoring Heart Rate 84 bpm Results Name Result Date Reference Range Unit Abnormality Flag A1C (IN HOUSE) Summary Purpose eClinicalWorks Submission
--- OUTSIDE RECORDS SUMMARY | 2018-10-31 17:50 | XMS REPORT ---
Author Author ELIA VALDEZ [facility] eClinicalWorks Address Unknown Phone Unavailable Care Team Providers Care Pet Walker Name Role Phone ELIA VALDEZ CP Unavailable [...] Instructions Start Date End Date Status Dosage ProAir HFA [facility] [address]-38 108 (90 Base) MCG/ACT Inhalation every 4-6 hours as needed July 31, 2015 2 puffs Results No Known Results Summary Purpose eClinicalWorks Submission
--- OUTSIDE RECORDS SUMMARY | 2018-10-31 17:50 | XMS REPORT ---
Author Author ELIA VALDEZ [facility] eClinicalWorks Address Unknown Phone Unavailable Care Team Providers Care Regional Planner Name Role Phone ELIA VALDEZ Unavailable Allergies, [...] without mention of complication 892.0 Active Assessment Diabetes type 2, uncontrolled E11.65 Active Problem Diabetes mellitus without mention of complication, type II or unspecified type, not stated as uncontrolled 250.00 Active Assessment Chronic pain G89.29 Active Problem Diabetes type 2, uncontrolled E11.65 Active Problem Unspecified hereditary and idiopathic peripheral neuropathy 356.9 Active Problem Ulcer of other part of foot 707.15 Active Problem Other and unspecified hyperlipidemia 272.4 Active Problem Cellulitis and abscess of foot, except toes 682.7 Active Problem Pain in joint, lower leg 719.46 Active Problem Unspecified disorder of skin and subcutaneous tissue 709.9 Active Assessment Varicose vein of leg I83.93 Active Assessment 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 Active Problem Depressive disorder, not elsewhere classified [...] Instructions Start Date End Date Status Dosage Blood Glucose Test Strip [facility] 0 Test Strips 3 times a day Jan 04, 2015 as directed Metformin HCl [facility] [address]-07 1000 MG Orally Twice a day Apr 26, 2015 1 tablet with meals Advocate Insulin Pen [place] N[facility] 42[address]-13422 31G X 8 MM subcutaneous 3 times a day October 17, 2014 as directed Singulair [facility] [address]-77 10 MG Orally Once a day 1 tablet in the evening Potassium Chloride [facility] [address]-34 20 MEQ Orally Once a day Jan 07, 2015 1 tablet Bathtub Safety Rail [facility] 0 ... July 24, 2015 as directed Norvasc [facility] [address]-85 10 MG Orally Once a day Jan 14, 2015 1 tablet Omeprazole [facility] [address]-89 20 MG Orally Once a day 1 capsule Amitriptyline HCl [facility] [address]-48 100 MG Orally Once a day at bedtime August 29, 2014 1tablet Neurontin [facility] [address]-11 600 MG Orally 2 times a day. 1 in AM, 1 in PM 1 tablet Gemfibrozil [facility] [address]-91 600 MG Orally Once a day Feb 01, 2014 take 1 tablet Hydrocodone-Acetaminophen [facility] [address]-54 7.5-325 MG Orally every 6 hrs PRN Feb 27, 2015 1 tablet as needed Humalog [facility] [address]-29 100 UNIT/ML Subcutaneous 3 times a day with meals 30 Units Levemir [facility] [address]-55 100 UNIT/ML Subcutaneous 2 times a day August 29, 2014 70 units Neurontin [facility] [address]-10 300 MG Orally Once a day in afternoon August 29, 2014 1 capsule Medical Compression Stockings [facility] 0 ... Terrell high measure to fit July 24, 2015 as directed BD Insulin Syringe [facility] 8290-231381 27G X 1/2 subcutaneous 5 times a day DX 250.00 October 16, 2014 as directed Zoloft [facility] [address]-01 50 mg Orally Once a day Feb 01, 2014 1 tablet Diovan HCT [facility] [address]-32 160-12.5 MG Orally Once a day Feb 01, 2014 take 1 tablet Procedures Procedure Coding System Code Date Office Visit, Est Pt., Level 3 CPT-4 93305 July 24, 2015 Vital Signs Date/Time: July 24, 2015 Temperature 97.8 F Weight 303.2 lbs Height 72 in BMI 41.12 Index Blood Pressure Diastolic 88 mmHg Blood Pressure Systolic 130 mmHg Cardiac Monitoring Heart Rate 88 bpm Results No Known Results Summary Purpose eClinicalWorks Submission
--- OUTSIDE RECORDS SUMMARY | 2018-10-31 17:51 | XMS REPORT ---
Author Author JERRICA MENDEZ [facility] Address [address] [place] [address] Care Team Providers Care Viner Operator Name Role Phone JERRICA MENDEZ Unavailable PROBLEMS Type Condition ICD9-CM Code SUE21-VX Code Onset Dates Condition Status SNOMED Code Problem Other and unspecified hyperlipidemia 272.4 Active 94240757 Problem Open wound of foot except toe(s) alone, without mention of complication 892.0 Active 05977491 Problem Diabetes mellitus without mention of complication, type II or unspecified type, not stated as uncontrolled 250.00 Active 981272512 Problem Phantom pain R52 Active 947087932 Problem Cellulitis and abscess of leg, except foot 682.6 Active 681310158 Problem Mild intermittent asthma without complication J45.20 Active 959235127 Problem Other follow-up examination V67.59 Active 531732555 Problem Unspecified disorder of skin and subcutaneous tissue 709.9 Active 82607611 Problem DM neuro manif type II E11.49 Active 88689122 Problem Diabetes type 2, uncontrolled E11.65 Active 148618416 Problem Essential hypertension I10 Active 37008890 Problem Acquired absence of right leg below knee Z89.511 Active 109009413 Problem Diabetes with neurological manifestations, type II or unspecified type, not stated as uncontrolled 250.60 Active 680889452 Problem Cellulitis and abscess of neck 682.1 Active 148202840 Problem Depressive disorder, not elsewhere classified 311 Active 14929048 Problem Reflux esophagitis 530.11 Active 695097820 Problem Cavus deformity of foot, 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 Active 08191973 Problem Ulcer of other part of foot 707.15 Active 70413318 Assessment DM neuro manif type II E11.49 15 Dec, 2015 Active 828736065 Problem Pain in joint, pelvic region and thigh 719.45 Active 484637006 Problem Unspecified hereditary and idiopathic peripheral neuropathy 356.9 Active 024961796 Problem Pain in joint, lower leg 719.46 Active 141380464 Problem Swelling of limb 729.81 Active 34344320 Problem Cellulitis and abscess of foot, except toes 682.7 Active 642680907 ALLERGIES Substance Reaction Event Type Date Status Victoza vomiting Drug Allergy Dec, Active Lopid vomiting Drug Allergy Dec, Active Cleocin vomiting Drug Allergy Dec, Active Cephalexin rash Drug Allergy Dec, Active SOCIAL HISTORY No smoking Hx information available PLAN OF CARE VITAL SIGNS Height 72 in 2015-12-26 Weight 300.0 lbs 2015-12-26 Heart Rate 100 bpm 2015-12-26 Respiratory Rate 18 2015-12-26 BMI 40.68 kg/m2 2015-12-26 Blood pressure systolic 120 mmHg 2015-12-26 Blood pressure diastolic 94 mmHg 2015-12-26 MEDICATIONS Medication Instructions Dosage Frequency Start Date End Date Duration Status Diovan HCT 160-12.5 MG Orally Once a day take 1 tablet 24h Active Amlodipine Besylate 10 MG TAKE ONE (1) TABLET BY MOUTH DAILY... Active Gemfibrozil 600 MG Orally twice a day take 1 tablet 12h Active Silvadene 1 % Externally Once a day 1 application to affected area 24h Sep, Active BD Insulin Syringe 27G X 1/2 subcutaneous 5 times a day DX 250.00 as directed Oct, 30 days Active Singulair 10 mg Orally Once a day 1 tablet in the evening 24h Active Leg Prosthesis N/A DON: 99 as directed Right below knee definitive Nov, Active ProAir HFA 108 (90 Base) MCG/ACT Inhalation every 4-6 hours as needed 2 puffs Jul, Active Metformin HCl 1000 MG Orally Twice a day 1 tablet with meals 12h Active BD Pen Needle [place]ra U/F 32G X 4 MM as directed 8h Sep, Active Hydrocodone-Acetaminophen 7.5-325 MG Orally every 6 hrs PRN 1 tablet as needed Feb, Active Zoloft 100 MG Orally Once a day 1 tablet 24h Active Potassium Chloride 20 MEQ Orally Once a day 1 tablet 24h Dec, Active Advocate Insulin Pen [place] 31G X 8 MM subcutaneous 3 times a day as directed 8h Oct, 30 days Active Gabapentin 300 MG Orally Three times a day 1 capsule 1 tab qhs x 5 d then bid x 5 d then tid 8h Dec, Active Blood Glucose Test Strip Test Strips as directed 8h Dec, 30 days Active Omeprazole 20 MG Orally Once a day 1 capsule 24h 30 days Active Humalog 100 UNIT/ML Subcutaneous 3 times a day with meals 30 Units Active Norvasc 10 MG Orally Once a day 1 tablet 24h Active Amitriptyline HCl 100 MG Orally Once a day at bedtime 1tablet August, Active Tresiba FlexTouch 200 UNIT/ML 72 units in am and 70 units in pm Sep, Active RESULTS Name Result Date Reference Range A1C (IN HOUSE) 2015-12-26 A1C IN HOUSE 9.9 4.3 - 5.6 % Previous A1c 11.8 Lot [id number] Exp date 09/27 PROCEDURES Procedure Date Ordered Related Diagnosis Body Site Office Visit, Est Pt., Level 3 Dec 26, 2015 GLYCATED HEMOGLOBIN TEST Dec 26, 2015 IMMUNIZATIONS No Known Immunizations
--- OUTSIDE RECORDS SUMMARY | 2018-10-31 17:51 | XMS REPORT ---
Author Author JERRICA MENDEZ [facility] Address [address] [place] [address] Care Team Providers Care Build Technician Name Role Phone JERRICA MENDEZ Unavailable PROBLEMS Type Condition ICD9-CM Code EGR66-KI Code Onset Dates Condition Status SNOMED Code Problem Cellulitis of left lower extremity L03.116 Active 663714448 Problem Reflux esophagitis K21.0 Active 325658287 Problem Acute pain of left shoulder M25.512 Active 02914301 Problem Skin ulcer of left lower leg, limited to breakdown of skin L97.921 Active 33300759 Problem Reflux esophagitis 530.11 Active 955230742 Problem Erectile dysfunction, unspecified erectile dysfunction type N52.9 Active 670549892 Problem Wheelchair bound Z99.3 Active 543325349 Problem Hammertoe of left foot M20.42 Active 613614847 Problem Venous insufficiency (chronic) (peripheral) I87.2 Active 51203209 Problem 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 Active 727463640 Problem Other and unspecified hyperlipidemia 272.4 Active 43576642 Problem Diabetes type 2, uncontrolled E11.65 Active 552122981 Problem Unspecified hereditary and idiopathic peripheral neuropathy 356.9 Active 740688633 Problem Depressive disorder, not elsewhere classified 311 Active 20314453 Problem Phantom pain R52 Active 413680536 Problem Essential hypertension I10 Active 66442641 Problem DM neuro manif type II E11.49 Active 93313981 Problem Mild intermittent asthma without complication J45.20 Active 636190314 Problem Acquired absence of right leg below knee Z89.511 Active 806245782 Problem Obstructive sleep apnea syndrome G47.33 Active 18126777 ALLERGIES Substance Reaction Event Type Date Status Victoza vomiting Drug Allergy Dec, Active Lopid vomiting Drug Allergy Dec, Active Cleocin vomiting Drug Allergy Dec, Active Cephalexin rash Drug Allergy Dec, Active ENCOUNTERS Encounter Location Date Diagnosis [facility] [id number] [place] [id number] Sep, [facility] [id number] [place] [address] [id number] Jul, [facility] [id number] [place] [address] [id number] Jul, [facility] [id number] [place] [address] [id number] Jul, BMI 40.0-44.9, adult Z68.41 ; Skin ulcer of left lower leg, limited to breakdown of skin L97.921 and DM neuro manif type II E11.49 [id number] [place] [address] Jul, [facility] [id number] [place] [address] [id number] Jul, [id number] [place] [address] [id number] Jul, [facility] [id number] [place] [address] [id number] Jun, Erectile dysfunction, unspecified erectile dysfunction type N52.9 [address] [id number] [place] [address] Jun, [address] [place] [address] [id number] Jun, BMI 40.0-44.9, adult Z68.41 ; Diabetes type 2, uncontrolled E11.65 ; Phantom pain R52 ; Subluxation of right shoulder joint, sequela S43.001S and Erectile dysfunction, unspecified erectile dysfunction type N52.9 [address] [id number] [place] [address] Jun, DM neuro manif type II E11.49 ; Onychomycosis B35.1 and Hammertoe of left foot M20.42 [place] [id number] [place] [phone] Jun, [facility] [id number] [place] [address] [id number] Jun, DM neuro manif type II E11.49 [address] [facility] [id number] [id number] Jun, DM neuro manif type II E11.49 [facility] [address] [facility] [id number][place] [phone] May, DM neuro manif type II E11.49 ; Venous insufficiency (chronic) (peripheral) I87.2 ; 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 ; Essential hypertension I10 and Phantom pain R52 [facility] [address] [facility] [id number][place] [id number] Apr, Diabetes type 2, uncontrolled E11.65 ; Acquired absence of right leg below knee Z89.511 ; Essential hypertension I10 ; Reflux esophagitis K21.0 and Phantom pain R52 [facility] [address] [facility] [id number] [place] [address] [id number] Apr, BMI 40.0-44.9, adult Z68.41 and Wheelchair bound Z99.3 [facility] [address] [facility] [id number], [place] [id number] Mar, [place] [id number] [place] [address] [id number] Mar, BMI 40.0-44.9, adult Z68.41 ; Diabetes type 2, uncontrolled E11.65 ; Mild intermittent asthma without complication J45.20 ; Phantom pain R52 ; Reflux esophagitis K21.0 and Essential hypertension I10 [facility] [address] [facility] [id number], [place] [id number] Feb, Phantom pain R52 [facility] [address] [facility] [id number], [place] [id number] Feb, Phantom pain R52 and Acute pain of left shoulder M25.512 [id number] [place] [address] [id number] Jan, Phantom pain R52 [facility] [address] [facility] [id number] [place] [address] [id number] Jan, DM neuro manif type II E11.49 ; Cellulitis of left lower extremity L03.116 ; Obstructive sleep apnea syndrome G47.33 ; Thyroid disorder screen Z13.29 and Lipid screening Z13.220 [facility] [id number] [place] [address] [id number] Jan, [facility] [id number] [place] [address] [phone] Dec, DM neuro manif type II E11.49 ; Phantom pain R52 and Mild intermittent asthma without complication J45.20 [facility] [id number] [place] [address] [id number] Dec, Wound of left lower extremity, subsequent encounter S81.802D [facility] [id number] [place] [address] [id number] Nov, [facility] [id number] [place] [address] Nov, [facility] [id number] [place] [address] [id number] Nov, DM neuro manif type II E11.49 ; Mild intermittent asthma without complication J45.20 ; Essential hypertension I10 and Phantom pain R52 [facility] [id number] [place] [address] [id number] Oct, Phantom pain R52 [facility] [id number] [place] [address] [id number] Sep, Phantom pain R52 ; DM neuro manif type II E11.49 and Essential hypertension I10 [facility] [id number] [place] [address] [id number] August, DM neuro manif type II E11.49 ; Phantom pain R52 and Essential hypertension I10 [facility] [id number] [place] [address] [id number] Jul, DM neuro manif type II E11.49 and Phantom pain R52 [facility] [id number] [place] [address] Jun, Onychomycosis B35.1 and DM neuro manif type II E11.49 [facility] [id number] [place] [address] [id number] Jun, DM neuro manif type II E11.49 ; Phantom pain R52 ; Essential hypertension I10 and Diabetes with neurological manifestations, type II or unspecified type, not stated as uncontrolled 250.60 [facility] [id number] [place] [address] [id number] Apr, DM neuro manif type II E11.49 ; Phantom pain R52 ; Essential hypertension I10 and Mild intermittent asthma without complication J45.20 [id number] [place] [address] [id number] Apr, Need for follow up care after discharge from healthcare facility Z92.89 and Wound of right lower extremity, subsequent encounter S81.801D [id number] [place] [address] [id number] Mar, Phantom pain R52 ; DM neuro manif type II E11.49 and Essential hypertension I10 [id number] [place] [address] [id number] Feb, DM neuro manif type II E11.49 ; Phantom pain R52 and Essential hypertension I10 [id number] [place] [address] [id number] Jan, Phantom pain R52 and DM neuro manif type II E11.49 [id number] [place] [address] [id number] Dec, [id number] [place] [address] [id number] Dec, DM neuro manif type II E11.49 ; Phantom pain R52 ; Mild intermittent asthma without complication J45.20 and Essential hypertension I10 [facility] [address]65[address], [place] [address] Dec, Onychomycosis B35.1 ; Xerosis of skin L85.3 and DM neuro manif type II E11.49 [id number] [place] [address] [id number] Nov, Acquired absence of right leg below knee Z89.511 [address] [place] [address] [id number] Nov, [id number] [place] [address] [id number] Nov, [facility] [address] [id number][place] [id number] Sep, [facility] [id number] [place] [address], [place] [phone] Sep, Diabetes type 2, uncontrolled E11.65 ; Leg wound, left, initial encounter S81.802A and Erectile disorder due to medical condition in male N52.1 [facility] [id number] [place] [address] [id number] Sep, [facility] [id number] [place] [address] [id number] Jul, [facility] [id number] [place] [address] [id number] Jul, [facility] [id number] [place] [address] [id number] Jul, [facility] [id number] [place] [address] [id number] Jul, 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 ; Varicose vein of leg I83.93 ; Diabetes type 2, uncontrolled E11.65 and Chronic pain G89.29 [facility] [id number], [place] [id number] Jul, [facility] [id number] [place] [address] [id number] Jul, Diabetes with neurological manifestations, type II or unspecified type, not stated as uncontrolled 250.60 [facility] [id number], [place] [id number] Jul, [facility] [address] [id number], [place] [id number] Jul, [facility] [id number], [place] [id number] Jun, Diabetes type 2, uncontrolled E11.65 [facility] [id number] [place] [address] [id number] Jun, Pain in right knee M25.561 ; Pain in left knee M25.562 ; Other chronic pain G89.29 and Primary osteoarthritis of both knees M17.0 [facility] [address] [phone] Apr, Diabetes type 2, uncontrolled E11.65 ; Puncture wound of foot, left, initial encounter S91.332A and Encounter for immunization Z23 [facility] [id number] [place] [address] [id number] Apr, [id number] [place] [address] [id number] Apr, [id number] [place] [address] [id number] Feb, Acquired absence of right leg below knee Z89.511 [id number] [place] [address] [id number] Feb, Acquired absence of right leg below knee Z89.511 [address] [place] [address] [id number] Feb, Diabetes type 2, uncontrolled E11.65 and Acquired absence of right leg below knee Z89.511 [address] [place] [address] [id number] Jan, [address] [place] [address] [id number] Jan, [facility] [address]00565100[place], [place] [address] Jan, [id number] [id number] Jan, [facility] [id number] [place] [id number] Dec, [address]100[place], [place] [id number] Dec, Diabetes with neurological manifestations, type II or unspecified type, not stated as uncontrolled 250.60 and Open wound of foot except toe(s) alone, without mention of complication 892.0 [facility] [address]00565100[place], [place] [id number] Dec, [address] [place] [address] [id number] Nov, [id number] [id number] Nov, Cellulitis of foot 682.7 [facility] [id number], [place] [phone] Oct, [facility] [id number], [place] [id number] Oct, Corneal abrasion 918.1 [facility] [address] [id number], [place] [id number] Oct, [facility] [id number] [place] [address] [id number] Oct, [facility] [id number] [place] [address] [id number] August, [facility] [id number] [place] [address] [id number] August, [facility] [id number], [place] [id number] August, [facility] [id number], [place] [id number] August, [facility] [address] [id number], [place] [id number] August, Diabetes mellitus without mention of complication, type II or unspecified type, not stated as uncontrolled 250.00 [facility] [address]00565100[place], [place] [address] Jul, [facility] [address]00565100[place], [place] [address] Jul, [facility] [id number] [place] [phone] Apr, [facility] [id number] [place] [address] Apr, [facility] [id number] [place] [address] Mar, [facility] [address] [id number], [place] [address] Mar, [facility] [address] [id number], [place] [address] Mar, [facility] [address] [id number] [place] [address] Mar, [facility] [place] [facility] [address] [id number], [place] [address] Mar, [facility] [address] [id number], [place] [address] Mar, [facility] [address] [facility] [id number], [place] [id number] Mar, [facility] [place] [facility] [address] [id number] [place] [address] Mar, [facility] [place] [facility] [address] [id number], [place] [address] Mar, [facility] [place] [facility] [address] [facility] [id number], [place] [address] Mar, [facility] [place] [facility] [address] [facility] [id number], [place] [address] Mar, [facility] [place] [facility] [address] [facility] [id number], [place] [address] Mar, [facility] [place] [facility] [address] [facility] [id number], [place] [address] Mar, [facility] [address] [facility] [id number], [place] [id number] Mar, [facility] [place] [facility] [address] [facility] [id number], [place] [address] Jan, [facility] [address] [facility] [id number], [place] [id number] Jan, [facility] [place] [facility] [address] [facility] [id number], [place] [address] Jan, [facility] [place] [facility] [address] [facility] [id number], [place] [address] Jan, [facility] [place] [facility] [address] [facility] [id number] [place] [address] Jan, [facility] [address] [id number] [place] [id number] Jan, [facility] [place] [facility] [address] [facility] [id number] [place] [address] Dec, [facility] [address] [id number] [place] [id number] Nov, [facility] [place] [facility] [address] [id number] [place] [address] Nov, [facility] [address] [id number] [place] [id number] Oct, [facility] [place] [facility] [address] [facility] [id number] [place] [address] Oct, [facility] [address] [facility] [id number] [place] [id number] Oct, [facility] [place] [facility] [address] [facility] [id number] [place] [address] Oct, [facility] [place] [facility] [address] [facility] [id number] [place] [address] August, [facility] [place] [facility] [address] [facility] [id number], [place] [address] August, [facility] [place] [facility] [address] [facility] [id number] [place] [address] August, [facility] [place] [facility] [address] [facility] [id number], [place] [address] August, [facility] [address] [facility] [id number] [place] [id number] Jul, [facility] [place] [facility] [address] [facility] [id number] [place] [address] Jul, [facility] [address] [facility] [id number] [place] [id number] Jun, [facility] [place] [facility] [address] [facility] [id number] [place] [address] Jun, [facility] [address] [id number] [place] [id number] Jun, [facility] [address] [id number], [place] [address] Jun, [facility] [address] [id number] [place] [id number] Jun, [facility] [address] [id number], [place] [address] Jun, [facility] [address] [facility] [id number] [place] [id number] Jun, [facility] [place] [facility] [address] [facility] [id number], [place] [address] Jun, [facility] [address] [facility] [id number] [place] [id number] May, [facility] [place] [facility] [address] [id number], [place] [address] May, [facility] [address] [facility] [id number], [place] [id number] May, [facility] [place] [facility] [address] [facility] [id number], [place] [address] May, [facility] [place] [facility] [address] [facility] [id number], [place] [address] May, [facility] [place] [facility] [address] [facility] [id number], [place] [address] May, [facility] [address] [facility] [id number], [place] [id number] May, [facility] [place] [facility] [address] [facility] [id number], [place] [address] May, [facility] [address] [facility] [id number], [place] [id number] May, [facility] [place] [facility] [address] [facility] [id number], [place] [address] May, [facility] [place] [facility] [address] [facility] [id number], [place] [address] Apr, [facility] [address] [facility] [id number], [place] [address] Apr, [facility] [address] [id number], [place] [id number] Apr, [facility] [address] [facility] [id number], [place] [address] Apr, [facility] [address] [id number], [place] [id number] Sep, [facility] [address] [facility] [id number], [place] [address] Sep, [facility] [address] [id number] [place] [id number] Sep, [facility] [address] [id number] [place] [id number] Sep, [facility] [address] [facility] [id number], [place] [address] Jun, [facility] [address] [id number] [place] [id number] Nov, [facility] [address] [id number] [place] [id number] Nov, [facility] [address] [id number] [place] [id number] Nov, [facility] [address] [id number] [place] [id number] Nov, [facility] [address] [id number] [place] [id number] Nov, [facility] [address] [id number] [place] [id number] Nov, [facility] [address] [id number] [place] [id number] Nov, [facility] [address] [id number] [place] [id number] Nov, [facility] [address] [id number] [place] [id number] Nov, [facility] [address] [id number], [place] 778009291 Sep, [facility] [address] [id number], [place] [id number] Sep, [facility] [address] [id number], [place] [id number] Sep, [facility] [address] [id number], [place] [id number] Sep, [facility] [id number], [place] [id number] August, [facility] [id number], [place] 415860956 August, [facility] [id number] [place] [address] [id number] August, [facility] [id number], [place] [id number] August, [facility] [address]00565100[place], [place] [address] Sep, IMMUNIZATIONS No Known Immunizations SOCIAL HISTORY Never Assessed REASON FOR VISIT ER f/u - abscess left lower leg, seen in [facility] on Wednesday. Medardo MARIE PLAN OF CARE Activity Details Follow Up as schd Reason: VITAL SIGNS Height 72 in 2016-12-21 Weight 302.8 lbs 2016-12-21 Temperature 97.1 degrees Fahrenheit 2016-12-21 Heart Rate 76 bpm 2016-12-21 Respiratory Rate 18 2016-12-21 BMI 41.06 kg/m2 2016-12-21 Blood pressure systolic 130 mmHg 2016-12-21 Blood pressure diastolic 78 mmHg 2016-12-21 MEDICATIONS Medication Instructions Dosage Frequency Start Date End Date Duration Status Gabapentin 600 MG Orally Three times a day 1 capsule 1 tab qhs x 5 d then bid x 5 d then tid 8h Dec, Active BD Pen Needle Nedra U/F 32G X 4 MM as directed 8h Sep, Active Humalog 100 UNIT/ML Subcutaneous 3 times a day with meals 30 Units Active BD Insulin Syringe 27G X 1/2 as directed Oct, 30 days Active ProAir HFA 108 (90 Base) MCG/ACT Inhalation every 4-6 hours as needed 2 puffs Jul, Active Tresiba FlexTouch 200 UNIT/ML Subcutaneous 2 times a day 108 units 12h 20 Sep, 2015 Active Leg Prosthesis N/A DON: 99 as directed Right below knee definitive Nov, Active Amoxicillin 500 mg Orally every 12 hrs 2 capsules 12h Dec, Dec, 14 days Active Zoloft 50 mg Orally Once a day 1 tablet 24h Active Gemfibrozil 600 MG Orally twice a day take 1 tablet 12h Active Potassium Chloride 20 MEQ Orally Once a day 1 tablet 24h Dec, Active Hydrocodone-Acetaminophen 7.5-325 MG Orally every 6 hrs PRN 1 tablet as needed Feb, Active Omeprazole 20 MG Orally Once a day 1 capsule 24h 30 days Active Amlodipine Besylate 10 mg Orally Once a day 1 tablet 24h Active Singulair 10 mg Orally Once a day 1 tablet in the evening 24h Active Blood Glucose Test Strip Test Strips as directed 8h Dec, 30 days Active Metformin HCl 1000 MG Orally Twice a day 1 tablet with meals 12h Active Blood Pressure Kit ... as directed Mar, Active Diovan HCT 160-12.5 MG Orally Once a day take 1 tablet 24h Active RESULTS No Results PROCEDURES No Known [...] History [facility] Hospitalization History [facility] post op infection to right foot, amputations to mid-calf 01/2015 Hospitalization History [facility] post-op 7 days, discharges with home health -02/2015 Hospitalization History [facility] visit for sore on right stump 04/2016 [facility] wound on left lower leg, culture +for Strep G 12/2016
--- OUTSIDE RECORDS SUMMARY | 2018-10-31 17:51 | XMS REPORT ---
Author Author EDDY REDDY Organization [facility] Address [address] [place] [address] Care Team Providers Care Operating Room Nurse Name Role Phone BARRY EDDY Unavailable PROBLEMS Type Condition ICD9-CM Code PME04-OB Code Onset Dates Condition Status SNOMED Code Problem Reflux esophagitis K21.0 Active 926692127 Problem Wheelchair bound Z99.3 Active 204651839 Problem Hammertoe of left foot M20.42 Active 302922863 Problem Varicose veins of left lower extremity with ulcer other part of lower leg I83.028 Active 52116337 Problem Depressive disorder, not elsewhere classified 311 Active 17872705 Problem 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 Active 179951168 Problem Unspecified hereditary and idiopathic peripheral neuropathy 356.9 Active 995974160 Problem Reflux esophagitis 530.11 Active 305629090 Problem Venous insufficiency (chronic) (peripheral) I87.2 Active 13438343 Problem 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 Active 382783806 Problem Skin ulcer of left lower leg, limited to breakdown of skin L97.921 Active 20344921 Problem Erectile dysfunction, unspecified erectile dysfunction type N52.9 Active 830669548 Problem DM neuro manif type II E11.49 Active 22020051 Problem Acquired absence of right leg below knee Z89.511 Active 873967604 Problem Other and unspecified hyperlipidemia 272.4 Active 90602407 Problem Diabetes type 2, uncontrolled E11.65 Active 107628153 Problem Mild intermittent asthma without complication J45.20 Active 680732007 Problem Obstructive sleep apnea syndrome G47.33 Active 83896821 Problem Phantom pain R52 Active 437277949 Problem Cellulitis of left lower extremity L03.116 Active 350296806 Problem Essential hypertension I10 Active 99236866 Problem Acute pain of left shoulder M25.512 Active 45524734 ALLERGIES Substance Reaction Event Type Date Status Victoza vomiting Drug Allergy Apr, Active Lopid vomiting Drug Allergy Apr, Active Cleocin vomiting Drug Allergy Apr, Active Cephalexin rash Drug Allergy Apr, Active ENCOUNTERS Encounter Location Date Diagnosis [facility] [id number] [place] [address] Dec, [id number] [place] [address] [id number] Oct, [facility] [address] [address] Sep, Onychomycosis B35.1 ; Impaired circulation of left leg I99.9 and DM neuro manif type II E11.49 [id number] [place] [address] [id number] Sep, BMI 40.0-44.9, adult Z68.41 ; Skin ulcer of left lower leg, limited to breakdown of skin L97.921 ; Acute pain of left shoulder M25.512 ; DM neuro manif type II E11.49 ; Mild intermittent asthma without complication J45.20 and Phantom pain R52 [address] [id number] [place] [address] [id number] Sep, Phantom pain R52 [id number] [place] [address] [id number] August, Phantom pain R52 [id number] [place] [address] [id number] August, Acquired absence of right leg below knee Z89.511 [id number] [place] [address] [id number] August, Acquired absence of right leg below knee Z89.511 [facility] [id number] [place] [address] August, Diabetes type 2, uncontrolled E11.65 [facility] [id number] [place] [address] August, [facility] [id number] [place] [address] August, [facility] [address] [id number] August, BMI 40.0-44.9, adult Z68.41 ; 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 and Acquired absence of right leg below knee Z89.[address] [id number] [place] [address] August, [facility] [address] [place] [address] [id number] Jul, Skin ulcer of left lower leg, limited to breakdown of skin L97.921 [id number] [place] [address] [id number] Jul, [id number] [place] [address] [id number] Jul, BMI 40.0-44.9, adult Z68.41 ; Skin ulcer of left lower leg, limited to breakdown of skin L97.921 and DM neuro manif type II E11.49 [facility] [id number] [place] [address] Jul, [facility] [id number] [place] [address] [id number] Jul, [address] [place] [address] [id number] Jul, [id number] [place] [address] [id number] Jun, Erectile dysfunction, unspecified erectile dysfunction type N52.9 [facility] [address] [place] [address] Jun, [id number] [place] [address] [id number] Jun, BMI 40.0-44.9, adult Z68.41 ; Diabetes type 2, uncontrolled E11.65 ; Phantom pain R52 ; Subluxation of right shoulder joint, sequela S43.001S and Erectile dysfunction, unspecified erectile dysfunction type N52.9 [facility] [address] [facility] [id number], [place] [address] Jun, DM neuro manif type II E11.49 ; Onychomycosis B35.1 and Hammertoe of left foot M20.42 [facility] [address] [facility] [id number] [place] [address] Jun, [facility] [address] [facility] [id number] [id number] Jun, DM neuro manif type II E11.49 [id number] [id number] [address] Jun, DM neuro manif type II E11.49 [facility] [address] [place] [address] [id number] May, DM neuro manif type II E11.49 ; Venous insufficiency (chronic) (peripheral) I87.2 ; 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 ; Essential hypertension I10 and Phantom pain R52 [facility] [address] [id number] Apr, Diabetes type 2, uncontrolled E11.65 ; Acquired absence of right leg below knee Z89.511 ; Essential hypertension I10 ; Reflux esophagitis K21.0 and Phantom pain R52 [facility] [address] [id number] Apr, BMI 40.0-44.9, adult Z68.41 and Wheelchair bound Z99.3 [facility] [address] [facility] [id number] [id number] Mar, [address] [id number] Mar, BMI 40.0-44.9, adult Z68.41 ; Diabetes type 2, uncontrolled E11.65 ; Mild intermittent asthma without complication J45.20 ; Phantom pain R52 ; Reflux esophagitis K21.0 and Essential hypertension I10 [facility] [address] [id number] Feb, Phantom pain R52 [facility] [id number] [id number] Feb, Phantom pain R52 and Acute pain of left shoulder M25.512 [facility] [id number] [place] [address] [id number] Jan, Phantom pain R52 [facility] [id number] [place] [address] [phone] Jan, DM neuro manif type II E11.49 ; Cellulitis of left lower extremity L03.116 ; Obstructive sleep apnea syndrome G47.33 ; Thyroid disorder screen Z13.29 and Lipid screening Z13.220 [facility] [id number] [place] [address] [id number] Jan, [facility] [id number] [place] [address] [id number] Dec, DM neuro manif type II E11.49 ; Phantom pain R52 and Mild intermittent asthma without complication J45.20 [facility] [id number] [place] [address] [id number] Dec, Wound of left lower extremity, subsequent encounter S81.802D [facility] [id number] [place] [address] [id number] Nov, [facility] [id number] [place] [address] Nov, [facility] [id number] [place] [address] [id number] Nov, DM neuro manif type II E11.49 ; Mild intermittent asthma without complication J45.20 ; Essential hypertension I10 and Phantom pain R52 [facility] [id number] [place] [address] [id number] Oct, Phantom pain R52 [facility] [id number] [place] [address] [id number] Sep, Phantom pain R52 ; DM neuro manif type II E11.49 and Essential hypertension I10 [facility] [id number] [place] [address] [id number] August, DM neuro manif type II E11.49 ; Phantom pain R52 and Essential hypertension I10 [facility] [id number] [place] [address] [id number] Jul, DM neuro manif type II E11.49 and Phantom pain R52 [facility] [id number] [place] [address] Jun, Onychomycosis B35.1 and DM neuro manif type II E11.49 [facility] [id number] [place] [address] [id number] Jun, DM neuro manif type II E11.49 ; Phantom pain R52 ; Essential hypertension I10 and Diabetes with neurological manifestations, type II or unspecified type, not stated as uncontrolled 250.60 [facility] [id number] [place] [address] [id number] Apr, DM neuro manif type II E11.49 ; Phantom pain R52 ; Essential hypertension I10 and Mild intermittent asthma without complication J45.20 [facility] [id number] [place] [address] [id number] Apr, Need for follow up care after discharge from healthcare facility Z92.89 and Wound of right lower extremity, subsequent encounter S81.801D [facility] [id number] [place] [address] [id number] Mar, Phantom pain R52 ; DM neuro manif type II E11.49 and Essential hypertension I10 [facility] [id number] [place] [address] [id number] Feb, DM neuro manif type II E11.49 ; Phantom pain R52 and Essential hypertension I10 [facility] [id number] [place] [address] [id number] Jan, Phantom pain R52 and DM neuro manif type II E11.49 [facility] [id number] [place] [address] [id number] Dec, [id number] [place] [address] [id number] Dec, DM neuro manif type II E11.49 ; Phantom pain R52 ; Mild intermittent asthma without complication J45.20 and Essential hypertension I10 [facility] [address] [place] [address] Dec, Onychomycosis B35.1 ; Xerosis of skin L85.3 and DM neuro manif type II E11.49 [facility] [address] [id number] [place] [id number] Nov, Acquired absence of right leg below knee Z89.511 [facility] [address] [id number] [place] [id number] Nov, [facility] [address] [id number] [place] [id number] Nov, [facility] [id number] [place] [address] [id number] Sep, [facility] [id number] [place] [address], [place] [id number] Sep, Diabetes type 2, uncontrolled E11.65 ; Leg wound, left, initial encounter S81.802A and Erectile disorder due to medical condition in male N52.1 [facility] [id number] [place] [address], [place] [id number] Sep, [facility] [id number] [place] [address] [id number] Jul, [facility] [id number] [place] [address] [id number] Jul, [facility] [address] [id number] Jul, [facility] [id number] [place] [address] [id number] Jul, 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 ; Varicose vein of leg I83.93 ; Diabetes type 2, uncontrolled E11.65 and Chronic pain G89.29 [facility] [id number] [place] [address] [id number] Jul, [facility] [id number] [place] [address] [id number] Jul, Diabetes with neurological manifestations, type II or unspecified type, not stated as uncontrolled 250.60 [facility] [id number] [place] [address] [id number] Jul, [facility] [id number] [place] [address] [id number] Jul, [facility] [id number][place] [id number] Jun, Diabetes type 2, uncontrolled E11.65 [facility] [address] [place] [address] [id number] Jun, Pain in right knee M25.561 ; Pain in left knee M25.562 ; Other chronic pain G89.29 and Primary osteoarthritis of both knees M17.0 [facility] [id number] [place] [address] [id number] Apr, Diabetes type 2, uncontrolled E11.65 ; Puncture wound of foot, left, initial encounter S91.332A and Encounter for immunization Z23 [facility] [id number] [place] [address] [id number] Apr, [facility] [id number] [place] [address] [id number] Apr, [facility] [id number] [place] [address] [id number] Feb, Acquired absence of right leg below knee Z89.511 [id number] [place] [address] [id number] Feb, Acquired absence of right leg below knee Z89.511 [facility] [id number] [place] [address] [id number] Feb, Diabetes type 2, uncontrolled E11.65 and Acquired absence of right leg below knee Z89.511 [id number] [place] [address] [id number] Jan, [id number] [place] [address] [id number] Jan, [facility] [address]00565100[place], [place] [address] Jan, [facility] [id number] [place] [address] [id number] Jan, [facility] [id number] [id number] Dec, [facility] [id number] [place] [address] [id number] Dec, Diabetes with neurological manifestations, type II or unspecified type, not stated as uncontrolled 250.60 and Open wound of foot except toe(s) alone, without mention of complication 892.0 [facility] [id number] [place] [address] [id number] Dec, [facility] [id number] [place] [address] [id number] Nov, [facility] [address] [id number] Nov, Cellulitis of foot 682.7 [facility] [id number] [place] [address] [id number] Oct, [facility] [address] [id number] Oct, Corneal abrasion 918.1 [facility] [id number] [place] [address] [id number] Oct, [facility] [id number] [place] [address] [id number] Oct, [facility] [id number] [place] [address] [id number] August, [facility] [address] [place] [address] [id number] August, [facility] [id number] [place] [address] [id number] August, [facility] [id number] [place] [address] [id number] August, [facility] [id number] [place] [address] [id number] August, Diabetes mellitus without mention of complication, type II or unspecified type, not stated as uncontrolled 250.00 [facility] [id number] [place] [address] Jul, [facility] [id number] [place] [address] Jul, [facility] [id number] [place] [address] Apr, [facility] [address] [id number] [place] [address] Apr, [facility] [place] [facility] [address] [id number] [place] [address] Mar, [facility] [place] [facility] [address] [id number] [place] [address] Mar, [facility] [place] [facility] [address] [id number] [place] [address] Mar, [facility] [address] [id number] [place] [address] Mar, [facility] [place] [facility] [address] [id number] [place] [address] Mar, [facility] [address] [id number] [place] [address] Mar, [facility] [address] [id number] [id number] Mar, [facility] [address] [id number] [place] [address] Mar, [facility] [address] [id number] [place] [address] Mar, [facility] [address] [id number] [place] [address] Mar, [facility] [place] [facility] [address] [id number] [place] [address] Mar, [facility] [place] [facility] [address] [id number] [place] [address] Mar, [facility] [place] [facility] [address] [id number] [place] [address] Mar, [facility] [address] [facility] [id number] [id number] Mar, [facility] [place] [facility] [address] [id number] [place] [address] Jan, [facility] [address] [id number] [place] [id number] Jan, [facility] [place] [facility] [address] [id number] [place] [address] Jan, [facility] [place] [facility] [address] [id number] [place] [address] Jan, [facility] [place] [facility] [address] [id number] [place] [address] Jan, [facility] [address] [id number] [place] [id number] Jan, [facility] [place] [facility] [address] [id number] [place] [address] Dec, [facility] [address] [facility] [id number] [place] [id number] Nov, [facility] [place] [facility] [address] [facility] [id number] [place] [address] Nov, [facility] [address] [facility] [id number] [place] [id number] Oct, [facility] [place] [facility] [address] [id number] [place] [address] Oct, [facility] [address] [facility] [id number][place] [id number] Oct, [facility] [place] [facility] [address] [id number], [place] [address] Oct, [facility] [place] [facility] [address] [id number], [place] [address] August, [facility] [place] [facility] [address] [facility] [id number] [place] [address] August, [facility] [place] [facility] [address] [facility] [id number] [place] [address] August, [facility] [place] [facility] [address] [facility] [id number] [place] [address] August, [facility] [address] [facility] [id number][place] [id number] Jul, [facility] [place] [facility] [address] [facility] [id number] [place] [address] Jul, [facility] [address] [facility] [id number], [place] [id number] Jun, [facility] [place] [facility] [address] [facility] [id number], [place] [address] Jun, [facility] [address] [facility] [id number] [place] [id number] Jun, [facility] [place] [facility] [address] [facility] [id number] [place] [address] Jun, [facility] [address] [facility] [id number] [place] [id number] Jun, [facility] [place] [facility] [address], [place] [address] Jun, [facility] [address] [id number], [place] [id number] Jun, [facility] [place] [facility] [address] [id number], [place] [address] Jun, [facility] [address] [id number][place] [id number] May, [facility] [place] [facility] [address] [id number], [place] [address] May, [facility] [address] [facility] [id number], [place] [id number] May, [facility] [place] [facility] [address] [facility] [id number], [place] [address] May, [facility] [place] [facility] [address] [facility] [id number] [place] [address] May, [facility] [place] [facility] [address] [facility] [id number], [place] [address] May, [facility] [address] [facility] [id number][place] [id number] May, [facility] [place] [facility] [address] [facility] [id number], [place] [address] May, [facility] [address] [id number] [place] [id number] May, [facility] [address] [facility] [id number], [place] [address] May, [facility] [address] [facility] [id number], [place] [address] Apr, [facility] [address] [facility] [id number], [place] [address] Apr, [facility] [address] [id number], [place] [id number] Apr, [facility] [address] [facility] [id number], [place] [address] Apr, [facility] [address] [id number], [place] [id number] Sep, [facility] [address] [facility] [id number], [place] [address] Sep, [facility] [address] [id number][place] [id number] Sep, [facility] [address] [id number][place] [id number] Sep, [facility] [address] [facility] [id number], [place] [address] Jun, [facility] [address] [id number][place] [id number] Nov, [facility] [address] [id number] [place] [id number] Nov, [facility] [address] [id number] [place] [id number] Nov, [facility] [address] [id number] [place] [id number] Nov, [facility] [address] [id number][place] [id number] Nov, [facility] [address] [id number] [place] [id number] Nov, [facility] [address] [id number] [place] [id number] Nov, [facility] [address] [id number] [place] [id number] Nov, [facility] [address] [id number] [place] [id number] Nov, [facility] [address] [id number] [place] [id number] Sep, [facility] [address] [id number] [place] [id number] Sep, [facility] [address] [id number] [place] [id number] Sep, [facility] [address] [id number] [place] [id number] Sep, [facility] [address] [id number][place] [id number] August, [facility] [address] [id number] [place] [id number] August, [facility] [address] [id number] [place] [id number] August, [facility] [id number][place] [id number] August, [facility] [id number], [place] [address] Sep, IMMUNIZATIONS No Known Immunizations SOCIAL HISTORY Never Assessed REASON FOR VISIT Wheel Chair Consult, has right leg prosthesis Lizeth SARABIA PLAN OF CARE Activity Details Follow Up prn Reason: VITAL SIGNS Height 72 in 2017-04-15 Weight 317.2 lbs 2017-04-15 Temperature 96.6 degrees Fahrenheit 2017-04-15 Heart Rate 80 bpm 2017-04-15 Respiratory Rate 18 2017-04-15 BMI 43.02 kg/m2 2017-04-15 Blood pressure systolic 128 mmHg 2017-04-15 Blood pressure diastolic 72 mmHg 2017-04-15 MEDICATIONS Medication Instructions Dosage Frequency Start Date End Date Duration Status ProAir HFA 108 (90 Base) MCG/ACT Inhalation every 4-6 hours as needed 2 puffs Jul, Active BD Insulin Syringe 30G X 1/2 subcutaneously 5 times daily as directed Dec, Active Humalog 100 UNIT/ML Subcutaneous 3 times a day with meals 30 Units Active Zoloft 50 mg Orally Once a day 1 tablet 24h Active Blood Glucose Test Strip Test Strips as directed 8h Dec, 30 days Active Singulair 10 mg Orally Once a day 1 tablet in the evening 24h Active Lancets - as directed Mar, Active Blood Pressure Kit ... as directed Mar, Active Wheelchair - as directed Apr, lifetime Active Hydrocodone-Acetaminophen 7.5-325 MG Orally every 6 hrs PRN must last 1 m 1 tablet as needed Mar, Active Diovan HCT 160-12.5 MG Orally Once a day take 1 tablet 24h Active Tresiba FlexTouch 200 UNIT/ML Subcutaneous 2 times a day 115 units 12h Sep, Active Metformin HCl 1000 MG Orally Twice a day 1 tablet with meals 12h Active BD Pen Needle Nedra U/F 32G X 4 MM as directed 8h Sep, Active Gabapentin 600 MG Orally Three times a day 1 capsule 1 tab qhs x 5 d then bid x 5 d then tid 8h Dec, Active Potassium Chloride 20 MEQ Orally Once a day 1 tablet 24h Dec, Active Amlodipine Besylate 10 mg Orally Once a day 1 tablet 24h Active Omeprazole 40 MG Orally Once a day 1 capsule 24h 30 days Active Leg Prosthesis N/A DON: 99 as directed Right below knee definitive Nov, Active Gemfibrozil 600 MG Orally twice a day take 1 tablet 12h Active Ibuprofen 800 MG Orally Three times a day 1 tablet with food or milk as needed 8h Feb, Active RESULTS No Results PROCEDURES No [...] 11/2014 Surgical History amputation right mid-calf/foot at [facility] 01/2015 Hospitalization History [facility] post op infection to right foot, amputations to mid-calf 01/2015 Hospitalization History [facility] In post-op 7 days, discharges with home health -02/2015 Hospitalization History [facility] ER visit for sore on right stump 04/2016 Hospitalization History [facility] wound on left lower leg, culture +for Strep G 12/2016
--- OUTSIDE RECORDS SUMMARY | 2018-10-31 17:51 | XMS REPORT ---
Author Author ELIA VALDEZ Organization [employer] Address Unknown Phone Unavailable Care Team Providers Care Grain [employer]ast Plants Supervisor Name Role Phone ELIA VALDEZ CP Unavailable Allergies No Known Allergies Problems Problem Type Condition ICD-9 Code Onset Dates Condition Status Problem Cellulitis [...] Date End Date Status Dosage NovoLog Flexpen [facility] [address]-68 100 UNIT/ML Subcutaneous 3 times a day. MUST BE SEEN PRIOR TO FURTHER REFILLS November 01, 2013 30 Units Results No Known Results Summary Purpose [employer] Submission
--- OUTSIDE RECORDS SUMMARY | 2018-10-31 17:52 | XMS REPORT ---
Author Author ELIA VALDEZ [facility] e[employer] Address Unknown Phone Unavailable Care Team Providers Care Bail Bond Agent Name Role Phone ELIA VALEDZ CP Unavailable Allergies No Known Allergies Problems [...] Instructions Start Date End Date Status Dosage Zoloft [facility] [address]-99 100 MG Orally Once a day Feb 01, 2014 1 tablet Results No Known Results Summary Purpose [employer] Submission
--- OUTSIDE RECORDS SUMMARY | 2018-10-31 17:52 | XMS REPORT ---
Author ELIA Fournier Organization [employer] Address Unknown Phone Unavailable Care Team Providers Care Inside Account Executive Name Role Phone ELIA VALDEZ CP Unavailable [...] Start Date End Date Status Dosage Humalog [facility] [address]-22 100 UNIT/ML Subcutaneous 3 times a day with meals 30 Units Results No Known Results Summary Purpose [employer] Submission
--- OUTSIDE RECORDS SUMMARY | 2018-10-31 17:52 | XMS REPORT ---
Author ELIA Fournier [facility] e[employer] Address Unknown Phone Unavailable Care Team Providers Care [place] Overseer Name Role Phone ELIA VALDEZ CP Unavailable [...] Start Date End Date Status Dosage Humalog [facility] [address]-22 100 UNIT/ML Subcutaneous 3 times a day with meals 30Units Advocate Insulin Pen [place] [facility] [address] 31G X 8 MM subcutaneous 3 times a day October 17, 2014 as directed Bactrim DS [facility] [address]-43 800-160 MG Orally 2 times a day Feb 27, 2015 Mar 06, 2015 1 tablet Levemir [facility] [address]-63 100 UNIT/ML Subcutaneous 2 times a day August 29, 2014 70 units Gemfibrozil [facility] [address]-95 600 MG Orally Once a day Feb 01, 2014 take 1 tablet Hydrocodone-Acetaminophen [facility] [address]-98 7.5-325 MG Orally every 6 hrs PRN Feb 27, 2015 1 tablet as needed Blood Glucose Test Strip [facility] 0 Test Strips 3 times a day Jan 04, 2015 as directed Zoloft [facility] [address]-40 50 MG Orally Once a day Feb 01, 2014 1 tablet Neurontin [facility] [address]-11 300 MG Orally Three times a day August 29, 2014 1 capsule Diovan HCT [facility] [address]-61 160-12.5 MG Orally Once a day Feb 01, 2014 take 1 tablet Norvasc [facility] [address]-14 10 MG Orally Once a day Jan 14, 2015 1 tablet Omeprazole [facility] [address]-55 20 MG Orally Once a day 1 capsule Potassium Chloride [facility] [address]-49 20 MEQ Orally Once a day Jan 07, 2015 1 tablet BD Insulin Syringe [facility] 8290-518615 27G X 1/2 subcutaneous 5 times a day DX 250.00 October 16, 2014 as directed Procedures Procedure Coding System Code Date Office Visit, Est Pt., Level 3 CPT-4 58468 Feb 27, 2015 Vital Signs Date/Time: Feb 27, 2015 Temperature 98 F Weight 214 lbs Height 72 in BMI 29.02 Index Blood Pressure Diastolic 80 mmHg Blood Pressure Systolic 140 mmHg Cardiac Monitoring Heart Rate 82 bpm Results No Known Results Summary Purpose [employer]Works Submission
--- OUTSIDE RECORDS SUMMARY | 2018-10-31 17:52 | XMS REPORT ---
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 Name Role Phone JERRICA MENDEZ Unavailable PROBLEMS Type Condition ICD9-CM Code HXD50-RQ Code Onset Dates Condition Status SNOMED Code Problem Reflux esophagitis K21.0 Active 881598555 Problem Wheelchair bound Z99.3 Active 450742526 Problem Hammertoe of left foot M20.42 Active 613264598 Problem Varicose veins of left lower extremity with ulcer other part of lower leg I83.028 Active 96119679 Problem Depressive disorder, not elsewhere classified 311 Active 53689163 Problem 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 Active 128271056 Problem Unspecified hereditary and idiopathic peripheral neuropathy 356.9 Active 010243096 Problem Reflux esophagitis 530.11 Active 221347520 Problem Venous insufficiency (chronic) (peripheral) I87.2 Active 80258556 Problem 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 Active 802293891 Problem Skin ulcer of left lower leg, limited to breakdown of skin L97.921 Active 80768057 Problem Erectile dysfunction, unspecified erectile dysfunction type N52.9 Active 080096464 Problem DM neuro manif type II E11.49 Active 62422063 Problem Acquired absence of right leg below knee Z89.511 Active 678383750 Problem Other and unspecified hyperlipidemia 272.4 Active 85844979 Problem Diabetes type 2, uncontrolled E11.65 Active 350129885 Problem Mild intermittent asthma without complication J45.20 Active 743087292 Problem Obstructive sleep apnea syndrome G47.33 Active 25647386 Problem Phantom pain R52 Active 995032345 Problem Cellulitis of left lower extremity L03.116 Active 581670862 Problem Essential hypertension I10 Active 51864932 Problem Acute pain of left shoulder M25.512 Active 87230640 ALLERGIES No Information ENCOUNTERS Encounter Location Date Diagnosis [place] [address] [address] Sep, [id number] [place] [address] [id number] Sep, [place] [id number] [place] [address] [id number] August, Acquired absence of right leg below knee Z89.511 [id number] [place] [address] [id number] August, Acquired absence of right leg below knee Z89.511 [place] [address] [place] [id number] [place] [address] August, Diabetes type 2, uncontrolled E11.65 [place] [address] [place] [id number] [place] [address] August, [place] [address] [place] [id number] [place] [address] August, [id number] [place] [address] [id number] August, BMI 40.0-44.9, adult Z68.41 ; 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 and Acquired absence of right leg below knee Z89.511 [facility] [id number] [place] [address] August, [address] [id number] Jul, Skin ulcer of left lower leg, limited to breakdown of skin L97.921 [address] [place] [address] [id number] Jul, [address] [place] [address] [id number] Jul, BMI 40.0-44.9, adult Z68.41 ; Skin ulcer of left lower leg, limited to breakdown of skin L97.921 and DM neuro manif type II E11.49 [place] [address] [place] [id number] [place] [address] Jul, [facility] [address] [place] [address] [id number] [id number] Jul, [place] [id number] [place] [address] [id number] Jul, [address] [place] [address] [id number] Jun, Erectile dysfunction, unspecified erectile dysfunction type N52.9 [place] [address] [place] [id number] [place] [address] Jun, [place] [id number] [place] [address] [id number] Jun, BMI 40.0-44.9, adult Z68.41 ; Diabetes type 2, uncontrolled E11.65 ; Phantom pain R52 ; Subluxation of right shoulder joint, sequela S43.001S and Erectile dysfunction, unspecified erectile dysfunction type N52.9 [place] [address] [place] [id number] [place] [address] Jun, DM neuro manif type II E11.49 ; Onychomycosis B35.1 and Hammertoe of left foot M20.42 [place] [address] [place] [address] [id number] [address] Jun, [address] [place] [address] [id number] Jun, DM neuro manif type II E11.[address] [id number] [id number] Jun, DM neuro manif type II E11.49 [address] [id number] May, DM neuro manif type II E11.49 ; Venous insufficiency (chronic) (peripheral) I87.2 ; 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 ; Essential hypertension I10 and Phantom pain R52 [address] [id number] Apr, Diabetes type 2, uncontrolled E11.65 ; Acquired absence of right leg below knee Z89.511 ; Essential hypertension I10 ; Reflux esophagitis K21.0 and Phantom pain R52 [facility] [address] [id number] Apr, BMI 40.0-44.9, adult Z68.41 and Wheelchair bound Z99.3 [facility] [address] [id number] Mar, [address] [id number] Mar, BMI 40.0-44.9, adult Z68.41 ; Diabetes type 2, uncontrolled E11.65 ; Mild intermittent asthma without complication J45.20 ; Phantom pain R52 ; Reflux esophagitis K21.0 and Essential hypertension I10 [facility] [address] [place] [id number] [place] [address] [id number] Feb, Phantom pain R52 [address] [id number] Feb, Phantom pain R52 and Acute pain of left shoulder M25.512 [place] [address] [place] [id number] [place] [address] [id number] Jan, Phantom pain R52 [place] [address] [place] [id number] [place] [address] [id number] Jan, DM neuro manif type II E11.49 ; Cellulitis of left lower extremity L03.116 ; Obstructive sleep apnea syndrome G47.33 ; Thyroid disorder screen Z13.29 and Lipid screening Z13.220 [facility] [address] [id number] [place] [address] [id number] Jan, [facility] [address] [place] [address] [id number] [place] [address] [id number] Dec, DM neuro manif type II E11.49 ; Phantom pain R52 and Mild intermittent asthma without complication J45.20 [facility] [address] [place] [address] [id number] [place] [address] [id number] Dec, Wound of left lower extremity, subsequent encounter S81.802D [place] [address] [id number] Nov, [facility] [address] [place] [id number] [place] [address] Nov, [place] [id number] [place] [address] [id number] Nov, DM neuro manif type II E11.49 ; Mild intermittent asthma without complication J45.20 ; Essential hypertension I10 and Phantom pain R52 [place] [id number] [place] [address] [id number] Oct, Phantom pain R52 [address] [id number] Sep, Phantom pain R52 ; DM neuro manif type II E11.49 and Essential hypertension I10 [address] [id number] August, DM neuro manif type II E11.49 ; Phantom pain R52 and Essential hypertension I10 [address] [id number] Jul, DM neuro manif type II E11.49 and Phantom pain R52 [facility] [address] [place] [address] [id number] [place] [address] Jun, Onychomycosis B35.1 and DM neuro manif type II E11.49 [address] [place] [address] [id number] Jun, DM neuro manif type II E11.49 ; Phantom pain R52 ; Essential hypertension I10 and Diabetes with neurological manifestations, type II or unspecified type, not stated as uncontrolled 250.60 [facility] [id number] [place] [address] [id number] Apr, DM neuro manif type II E11.49 ; Phantom pain R52 ; Essential hypertension I10 and Mild intermittent asthma without complication J45.20 [place] [id number] [place] [address] [id number] Apr, Need for follow up care after discharge from healthcare facility Z92.89 and Wound of right lower extremity, subsequent encounter S81.801D [place] [id number] [place] [address] [id number] Mar, Phantom pain R52 ; DM neuro manif type II E11.49 and Essential hypertension I10 [facility] [address] [place] [address] [id number] [place] [address] [id number] Feb, DM neuro manif type II E11.49 ; Phantom pain R52 and Essential hypertension I10 [facility] [address] [place] [address] [id number] [place] [address] [id number] Jan, Phantom pain R52 and DM neuro manif type II E11.49 [facility] [address] [address] [id number] [place] [address] [id number] Dec, [place] [id number] [place] [address] [id number] Dec, DM neuro manif type II E11.49 ; Phantom pain R52 ; Mild intermittent asthma without complication J45.20 and Essential hypertension I10 [facility] [address] [place] [address] [id number] [place] [address] Dec, Onychomycosis B35.1 ; Xerosis of skin L85.3 and DM neuro manif type II E11.49 [facility] [address] [place] [address] [id number] [place] [address] [id number] Nov, Acquired absence of right leg below knee Z89.511 [place] [id number] [place] [address] [id number] Nov, [place] [id number] [place] [address] [id number] Nov, [place] [id number] [place] [address] [id number] Sep, [place] [id number] [place] [address] [id number] Sep, Diabetes type 2, uncontrolled E11.65 ; Leg wound, left, initial encounter S81.802A and Erectile disorder due to medical condition in male N52.1 [id number] [place] [address] [id number] Sep, [place] [id number] [place] [address] [id number] Jul, [place] [id number] [place] [address] [id number] 16 Jul, 2015 [facility] [id number] [place] [address] [id number] Jul, [place] [id number] [place] [address] [id number] Jul, 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 ; Varicose vein of leg I83.93 ; Diabetes type 2, uncontrolled E11.65 and Chronic pain G89.29 [place] [id number] [place] [address] [id number] Jul, [place] [id number] [place] [address] [id number] Jul, Diabetes with neurological manifestations, type II or unspecified type, not stated as uncontrolled 250.60 [place] [address] [place] [id number] [place] [address] [id number] Jul, [place] [id number] [place] [address] [id number] Jul, [place] [id number] [place] [address] [id number] Jun, Diabetes type 2, uncontrolled E11.65 [place] [id number] [place] [address] [id number] Jun, Pain in right knee M25.561 ; Pain in left knee M25.562 ; Other chronic pain G89.29 and Primary osteoarthritis of both knees M17.0 [place] [id number] [place] [address] [id number] Apr, Diabetes type 2, uncontrolled E11.65 ; Puncture wound of foot, left, initial encounter S91.332A and Encounter for immunization Z23 [place] [id number] [place] [address] [id number] Apr, [place] [id number] [place] [address] [id number] Apr, [place] [id number] [place] [address] [id number] Feb, Acquired absence of right leg below knee Z89.511 [place] [id number] [place] [address] [id number] Feb, Acquired absence of right leg below knee Z89.511 [facility] [id number] [place] [address] [id number] Feb, Diabetes type 2, uncontrolled E11.65 and Acquired absence of right leg below knee Z89.511 [facility] [place] [address] [place] [id number] [place] [address] [id number] Jan, [facility] [address] [place] [address] [id number] [place] [address] [id number] Jan, [facility] [address] [place] [address] [id number] [address] Jan, [facility] [address] [place] [address] [id number] [place] [address] [id number] Jan, bradyVicky [place] [address] [place] [id number] [place] [address] [id number] Dec, [place] [address] [place] [id number] [place] [address] [id number] Dec, Diabetes with neurological manifestations, type II or unspecified type, not stated as uncontrolled 250.60 and Open wound of foot except toe(s) alone, without mention of complication 892.0 [facility] [id number] [place] [address] [id number] Dec, [facility] [address] [place] [id number] [place] [address] [id number] Nov, [facility] [address] [place] [id number] [place] [address] [id number] Nov, Cellulitis of foot 682.7 [facility] [address] [place] [id number] [place] [address] [id number] Oct, [facility] [id number] [place] [address] [id number] Oct, Corneal abrasion 918.1 [facility] [id number] [place] [address] [id number] Oct, [facility] [address] [place] [address] [id number] [place] [address] [id number] Oct, [facility] [address] [place] [address] [id number] [place] [address] [id number] August, [facility] [place] [address] [facility] [id number] [id number] August, [facility] [place] [address] [facility] [id number] [place] [id number] August, [facility] [place] [address] [facility] [id number] [id number] August, [facility] [place] [address] [facility] [id number][place] [id number] August, Diabetes mellitus without mention of complication, type II or unspecified type, not stated as uncontrolled 250.00 [facility] [address] [facility] [id number], [place] [address] Jul, [facility] [place] [facility] [address] [place] [address] [id number] [place] [address] Jul, [facility] [address] [place] [address] [id number] [place] [address] Apr, [facility] [place] [facility] [address], [place] [address] Apr, [facility] [place] [facility] [address], [place] [address] Mar, [facility] [place] [facility] [address], [place] [address] Mar, [facility] [place] [facility] [address], [place] [address] Mar, [facility] [place] [facility] [address] [place] [id number], [place] [address] Mar, [facility] [place] [facility] [address] [facility] [id number], [place] [address] Mar, [facility] [place] [facility] [address] [facility] [id number], [place] [address] Mar, [facility] [place] [address] [place] [address] [id number] [phone] Mar, [facility] [place] [facility] [address], [place] [address] Mar, [facility] [address] [facility] [id number] [place] [address] Mar, [facility] [place] [facility] [address] [facility] [id number], [place] [address] Mar, [facility] [address] [facility] [id number], [place] [address] Mar, [facility] [place] [facility] [address] [facility] [id number], [place] [address] Mar, [facility] [address] [facility] [id number], [place] [address] Mar, [facility] [place] [address] [facility] [id number], [place] [id number] Mar, [facility] [address] [facility] [id number], [place] [address] Jan, [facility] [place] [address] [facility] [id number][place] [id number] Jan, [facility] [place] [facility] [address] [facility] [id number], [place] [address] Jan, [facility] [place] [facility] [address] [facility] [id number], [place] [address] Jan, [facility] [place] [facility] [address] [facility] [id number], [place] [address] Jan, [facility] [place] [address] [facility] [id number][place] [id number] Jan, [facility] [place] [facility] [address] [facility] [id number], [place] [address] Dec, [facility] [place] [address] [facility] [id number], [place] [id number] Nov, [facility] [place] [facility] [address] [facility] [id number], [place] [address] Nov, [facility] [place] [address] [facility] [id number], [place] [id number] Oct, [facility] [place] [facility] [address] [id number] [place] [address] Oct, [facility] [place] [address] [facility] [id number] [place] [id number] Oct, [facility] [place] [facility] [address] [id number] [place] [address] Oct, [facility] [place] [facility] [address] [facility] [id number] [place] [address] August, [facility] [place] [facility] [address] [id number] [place] [address] August, [facility] [place] [facility] [address] [facility] [id number] [place] [address] August, [facility] [place] [facility] [address] [facility] [id number] [place] [address] August, [facility] [place] [address] [facility] [id number], [place] [id number] Jul, [facility] [place] [facility] [address] [facility] [id number], [place] [address] Jul, [facility] [place] [address] [facility] [id number], [place] [id number] Jun, [facility] [place] [facility] [address] [facility] [id number], [place] [address] Jun, [facility] [place] [address] [facility] [id number], [place] [id number] Jun, [facility] [place] [facility] [address] [facility] [id number], [place] [address] Jun, [facility] [place] [address] [facility] [id number] [place] [id number] Jun, [facility] [place] [facility] [address] [facility] [id number] [place] [address] Jun, [facility] [place] [address] [facility] [id number] [place] 86845[address] Jun, [facility] [place] [facility] [address] [facility] [id number], [place] [address] Jun, [facility] [place] [address] [id number] [place] [id number] May, [facility] [place] [facility] [address] [facility] [id number], [place] [address] May, [facility] [place] [address] [id number] [place] [id number] May, [facility] [place] [facility] [address] [facility] [id number], [place] [address] May, [facility] [place] [facility] [address] [facility] [id number] [place] [address] May, [facility] [place] [facility] [address] [facility] [id number], [place] [address] May, [facility] [place] [address] [id number] [place] [id number] May, [facility] [place] [facility] [address] [id number], [place] [address] May, [facility] [place] [address] [id number] [place] [id number] May, [facility] [place] [facility] [address] [facility] [id number], [place] [address] May, [facility] [place] [facility] [address] [id number], [place] [address] Apr, [facility] [place] [facility] [address] [facility] [id number], [place] [address] Apr, [facility] [place] [address] [facility] [id number] [place] [id number] Apr, [facility] [place] [facility] [address] [facility] [id number], [place] [address] Apr, [facility] [place] [address] [facility] [id number], [place] [address] Sep, [facility] [place] [facility] [address] [facility] [id number], [place] [address] Sep, [facility] [place] [address] [id number] [place] [address] Sep, [facility] [place] [address] [id number] [place] [id number] Sep, [facility] [address] [id number] [place] [address] Jun, [facility] [place] [address] [id number] [place] [id number] Nov, [facility] [place] [address] [id number] [place] [address]57[address] Nov, [facility] [place] [address] [id number] [place] [id number] Nov, [facility] [place] [address] [id number] [place] 0812[address] Nov, [facility] [place] [address] [id number] [place] 832409747 Nov, [facility] [place] [address] [id number] [place] [id number] Nov, [facility] [place] [address] [id number] [place] [address] Nov, [facility] [place] [address] [id number] [place] [id number] Nov, [facility] [place] [address] [id number] [place] [address] Nov, [facility] [place] [address] [id number] [place] [id number] Sep, [facility] [address] [id number] [place] [id number] Sep, [facility] [address] [id number] [place] [id number] Sep, [facility] [address] [id number] [place] [id number] Sep, [facility] [address] [id number] [place] [id number] August, [facility] [address] [id number] [place] [id number] August, [facility] [address] [id number] [place] [id number] August, [facility] [address] [facility] [id number] [place] [id number] August, [facility] [address] [facility] [id number] [place] [address] Sep, IMMUNIZATIONS No Known Immunizations SOCIAL HISTORY Never Assessed REASON FOR VISIT RX-Hydrocodone refill PLAN OF CARE VITAL SIGNS MEDICATIONS Medication Instructions Dosage Frequency Start Date End Date Duration Status Hydrocodone-Acetaminophen 7.5-325 MG Orally every 6 hrs PRN must last 1 m 1 tablet as needed Feb, Active RESULTS [...] 11/2014 Surgical History amputation right mid-calf/foot at [facility] 01/2015 Hospitalization History [facility] post op infection to right foot, amputations to mid-calf 01/2015 Hospitalization History [facility] post-op 7 days, discharges with home health -02/2015 Hospitalization History [facility] visit for sore on right stump 04/2016 [facility]ization History [facility] wound on left lower leg, culture +for Strep G 12/2016
--- OUTSIDE RECORDS SUMMARY | 2018-10-31 17:52 | XMS REPORT ---
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
--- OUTSIDE RECORDS SUMMARY | 2018-10-31 17:52 | XMS REPORT ---
Author [facility] Address [address] [place] [address] Care Team Providers Care Mooner Name Role Phone JERRICA MENDEZ Unavailable PROBLEMS Type Condition ICD9-CM Code EOP25-[id number] Code Onset Dates Condition Status SNOMED Code Problem Other and unspecified hyperlipidemia 272.4 Active 88105498 Problem Diabetes with neurological manifestations, type II or unspecified type, not stated as uncontrolled 250.60 Active 134118345 Problem Diabetes mellitus without mention of complication, type II or unspecified type, not stated as uncontrolled 250.00 Active 328641263 Problem Essential hypertension I10 Active 05950030 Problem Pain in joint, lower leg 719.46 Active 341680517 Problem Mild intermittent asthma without complication J45.20 Active 306718828 Problem Cavus deformity of foot, 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 Active 04010486 Problem Open wound of foot except toe(s) alone, without mention of complication 892.0 Active 39031853 Problem DM neuro manif type II E11.49 Active 58593244 Problem Diabetes type 2, uncontrolled E11.65 Active 635360868 Problem Phantom pain R52 Active 752492570 Problem Acquired absence of right leg below knee Z89.511 Active 874920320 Problem Ulcer of other part of foot 707.15 Active 14613204 Problem Swelling of limb 729.81 Active 59305427 Problem Pain in joint, pelvic region and thigh 719.45 Active 287727946 Problem Unspecified disorder of skin and subcutaneous tissue 709.9 Active 00382789 Problem Cellulitis and abscess of neck 682.1 Active 473317785 Problem Reflux esophagitis 530.11 Active 201458201 Problem Cellulitis and abscess of foot, except toes 682.7 Active 377497933 Problem Unspecified hereditary and idiopathic peripheral neuropathy 356.9 Active 015685273 Problem Other follow-up examination V67.59 Active 676833727 Problem Cellulitis and abscess of leg, except foot 682.6 Active 334745364 Problem Depressive disorder, not elsewhere classified 311 Active 80711254 ALLERGIES Substance Reaction Event Type Date Status Victoza vomiting Drug Allergy Jun, Active Lopid vomiting Drug Allergy Jun, Active Cleocin vomiting Drug Allergy Jun, Active Cephalexin rash Drug Allergy Jun, Active SOCIAL HISTORY Never Assessed PLAN OF CARE Activity Details Follow Up 4 Weeks Reason:dm VITAL SIGNS Height 72 in 2016-06-10 Weight 297.8 lbs 2016-06-10 Temperature 96.8 degrees Fahrenheit 2016-06-10 Heart Rate 110 bpm 2016-06-10 Respiratory Rate 22 2016-06-10 BMI 40.38 kg/m2 2016-06-10 Blood pressure systolic 150 mmHg 2016-06-10 Blood pressure diastolic 98 mmHg 2016-06-10 MEDICATIONS Medication Instructions Dosage Frequency Start Date End Date Duration Status Amitriptyline HCl 100 MG Orally Once a day at bedtime 1tablet August, Active Humalog 100 UNIT/ML Subcutaneous 3 times a day with meals 30 Units Active Omeprazole 20 MG Orally Once a day 1 capsule 24h 30 days Active Potassium Chloride 20 MEQ Orally Once a day 1 tablet 24h Dec, Active Zoloft 100 mg Orally Once a day 1 tablet 24h Active Silvadene 1 % Externally Once a day 1 application to affected area 24h Sep, Active Tresiba FlexTouch 200 UNIT/ML Subcutaneous 2 times a day 98 units 12h Sep, Active Diovan HCT 160-12.5 MG Orally Once a day take 1 tablet 24h Active Amlodipine Besylate 10 mg Orally Once a day 1 tablet 24h Active Gabapentin 600 MG Orally Three [...] as directed 8h Dec, 30 days Active Leg Prosthesis N/A DON: 99 as directed Right below knee definitive Nov, Active Hydrocodone-Acetaminophen 7.5-325 MG Orally every 6 hrs PRN 1 tablet as needed Feb, Active BD Pen Needle Nedra U/F 32G X 4 MM as directed 8h Sep, Active BD Insulin Syringe 27G X 1/2 subcutaneous 5 times a day DX 250.00 as directed Oct, 30 days Active Singulair 10 mg Orally Once a day 1 tablet in the evening 24h Active Gemfibrozil 600 MG Orally twice a day take 1 tablet 12h Active RESULTS No Results PROCEDURES No Known [...] 11/2014 Surgical History amputation right mid-calf/foot at [facility] 01/2015 Hospitalization History [facility] post op infection to right foot, amputations to mid-calf 01/2015 Hospitalization History [facility] post-op 7 days, discharges with home health -02/2015 Hospitalization History [facility] ER visit for sore on right stump 04/2016 Hospitalization History [facility] wound on left lower leg, culture +for Strep G 12/2016
--- OUTSIDE RECORDS SUMMARY | 2018-10-31 17:54 | XMS REPORT | Continuity of Care Document ---
Author Organization Unknown Address Unknown Allergies Active Description Code Type Severity Reaction Onset Reported/Identified Relationship to Patient Clinical Status Yes cephalexin Drug Allergy 05/07/2008 Yes cephalexin Drug Allergy N/A N/A 05/07/2008 Yes Victoza 3-Byron 0.6 mg/0.1 mL (18 mg/3 mL) pen injector Drug Allergy N/A N/A 06/05/2013 Yes Cephalosporins [id number] Drug Allergy Severe N/A 02/15/2015 Yes gemfibrozil [id number] Drug Allergy Moderate n/v 02/15/2015 Yes clindamycin [id number] Drug Allergy Unknown n/v 02/15/2015 Medications There is no data. Problems Date Dx Coded Attending Type Code Diagnosis Diagnosed By 05/07/2008 401.1 ESSENTIAL HYPERTENSION BENIGN 05/07/2008 528.9 ORAL MUCOCELE 05/07/2008 401.1 ESSENTIAL HYPERTENSION BENIGN 05/07/2008 528.9 ORAL MUCOCELE 05/07/2008 ELIA VALDEZ APRN 401.1 ESSENTIAL HYPERTENSION BENIGN 05/07/2008 ELIA VALDEZ APRN E 528.9 ORAL MUCOCELE 05/07/2008 ELIA VALDEZ APRN E 401.1 ESSENTIAL HYPERTENSION BENIGN 05/07/2008 ELIA VALDEZ APRN E 528.9 ORAL MUCOCELE 05/07/2008 ELIA VALDEZ APRN E 401.1 ESSENTIAL HYPERTENSION BENIGN 05/07/2008 LESLEY VALDEZ APRNSIE E 528.9 ORAL MUCOCELE 05/07/2008 CELIA MAYFIELD JUSTIN K 401.1 ESSENTIAL HYPERTENSION BENIGN 05/07/2008 CELIA MAYFIELD JUSTIN K 528.9 ORAL MUCOCELE 05/07/2008 YANG DO JUSTIN K 401.1 ESSENTIAL HYPERTENSION BENIGN 05/07/2008 YANG DO JUSTIN K 528.9 ORAL MUCOCELE 05/07/2008 YANG DO JUSTIN K 401.1 ESSENTIAL HYPERTENSION BENIGN 05/07/2008 YANG DO, JUSTIN K 528.9 ORAL MUCOCELE 05/07/2008 NATALYA EDITOR AT LARGE, PATY B 401.1 ESSENTIAL HYPERTENSION BENIGN 05/07/2008 NATALYA EDITOR AT LAR[employer], PATY B 528.9 ORAL MUCOCELE 05/07/2008 YANG DO, JUSTIN K 401.1 ESSENTIAL HYPERTENSION BENIGN 05/07/2008 YANG DO, JUSTIN K 528.9 ORAL MUCOCELE 05/07/2008 YANG DO, JUSTIN K 401.1 ESSENTIAL HYPERTENSION BENIGN 05/07/2008 YANG DO, JUSTIN K 528.9 ORAL MUCOCELE 05/07/2008 YANG DO, JUSTIN K 401.1 ESSENTIAL HYPERTENSION BENIGN 05/07/2008 YANG DO, JUSTIN K 528.9 ORAL MUCOCELE 05/07/2008 YANG DO, JUSTIN K 401.1 ESSENTIAL HYPERTENSION BENIGN 05/07/2008 YANG DO, JUSTIN K 528.9 ORAL MUCOCELE 05/07/2008 YANG DO, JUSTIN K 401.1 ESSENTIAL HYPERTENSION BENIGN 05/07/2008 YANG DO, JUSTIN K 528.9 ORAL MUCOCELE 05/07/2008 YANG DO, JUSTIN K 401.1 ESSENTIAL HYPERTENSION BENIGN 05/07/2008 YANG DO, JUSTIN K 528.9 ORAL MUCOCELE 06/04/2008 251.1 HYPERINSULINISM 06/04/2008 251.1 HYPERINSULINISM 06/04/2008 COURTNEY SAEED ELIA E 251.1 HYPERINSULINISM 06/04/2008 COURTNEY SAEED ELIA E 251.1 HYPERINSULINISM 06/04/2008 LESLEY VALDEZ APRNSIE E 251.1 HYPERINSULINISM 06/04/2008 YANG DO, JUSTIN K 251.1 HYPERINSULINISM 06/04/2008 YANG DO, JUSTIN K 251.1 HYPERINSULINISM 06/04/2008 YANG DO, JUSTIN K 251.1 HYPERINSULINISM 06/04/2008 NATALYA EDITOR AT [employer]AR[employer], PATY B 251.1 HYPERINSULINISM 06/04/2008 YANG DO, JUSTIN K 251.1 HYPERINSULINISM 06/04/2008 YANG DO, JUSTIN K 251.1 HYPERINSULINISM 06/04/2008 YANG DO, JUSTIN K 251.1 HYPERINSULINISM 06/04/2008 YANG DO, JUSTIN K 251.1 HYPERINSULINISM 06/04/2008 YANG DO, JUSTIN K 251.1 HYPERINSULINISM 06/04/2008 YANG DO, JUSTIN K 251.1 HYPERINSULINISM 06/06/2010 278.00 OBESITY UNSPECIFIED 06/06/2010 780.57 SLEEP APNEA 06/06/2010 V18.0 FAMILY HISTORY OF DIABETES MELLITUS 06/06/2010 278.00 OBESITY UNSPECIFIED 06/06/2010 780.57 SLEEP APNEA 06/06/2010 V18.0 FAMILY HISTORY OF DIABETES MELLITUS 06/06/2010 [facility] ENVIRONMENTAL COMPLIANCE TECHNICIAN ELIA E 278.00 OBESITY UNSPECIFIED 06/06/2010 [facility] ENVIRONMENTAL COMPLIANCE TECHNICIAN, ELIA E 780.57 SLEEP APNEA 06/06/2010 [facility] ENVIRONMENTAL COMPLIANCE TECHNICIAN, ELIA E V18.0 FAMILY HISTORY OF DIABETES MELLITUS 06/06/2010 [facility] ENVIRONMENTAL COMPLIANCE TECHNICIAN ELIA E 278.00 OBESITY UNSPECIFIED 06/06/2010 [facility] ENVIRONMENTAL COMPLIANCE TECHNICIAN, ELIA E 780.57 SLEEP APNEA 06/06/2010 [facility] ENVIRONMENTAL COMPLIANCE TECHNICIAN, ELIA E V18.0 FAMILY HISTORY OF DIABETES MELLITUS 06/06/2010 [facility] ENVIRONMENTAL COMPLIANCE TECHNICIAN, ELIA E 278.00 OBESITY UNSPECIFIED 06/06/2010 [facility] ENVIRONMENTAL COMPLIANCE TECHNICIAN ELIA E 780.57 SLEEP APNEA 06/06/2010 [facility] ENVIRONMENTAL COMPLIANCE TECHNICIAN, ELIA E V18.0 FAMILY HISTORY OF DIABETES MELLITUS 06/06/2010 YANG DO, JUSTIN K 278.00 OBESITY UNSPECIFIED 06/06/2010 YANG DO, JUSTIN K 780.57 SLEEP APNEA 06/06/2010 YANG DO, JUSTIN K V18.0 FAMILY HISTORY OF DIABETES MELLITUS 06/06/2010 YANG DO, JUSTIN K 278.00 OBESITY UNSPECIFIED 06/06/2010 YANG DO, JUSTIN K 780.57 SLEEP APNEA 06/06/2010 YANG DO, JUSTIN K V18.0 FAMILY HISTORY OF DIABETES MELLITUS 06/06/2010 YANG DO, JUSTIN K 278.00 OBESITY UNSPECIFIED 06/06/2010 YANG DO, JUSTIN K 780.57 SLEEP APNEA 06/06/2010 YANG DO, JUSTIN K V18.0 FAMILY HISTORY OF DIABETES MELLITUS 06/06/2010 PATY HOANG LCPC 278.00 OBESITY UNSPECIFIED 06/06/2010 PATY HOANG LCPC 780.57 SLEEP APNEA 06/06/2010 PATY HOANG LCPC B V18.0 FAMILY HISTORY OF DIABETES MELLITUS 06/06/2010 YANG DO, JUSTIN K 278.00 OBESITY UNSPECIFIED 06/06/2010 YANG DO, JUSTIN K 780.57 SLEEP APNEA 06/06/2010 YANG DO, JUSTIN K V18.0 FAMILY HISTORY OF DIABETES MELLITUS 06/06/2010 YANG DO, JUSTIN K 278.00 OBESITY UNSPECIFIED 06/06/2010 YANG DO, JUSTIN K 780.57 SLEEP APNEA 06/06/2010 YANG DO, JUSTIN K V18.0 FAMILY HISTORY OF DIABETES MELLITUS 06/06/2010 YANG DO, JUSTIN K 278.00 OBESITY UNSPECIFIED 06/06/2010 YANG DO, JUSTIN K 780.57 SLEEP APNEA 06/06/2010 YANG DO, JUSTIN K V18.0 FAMILY HISTORY OF DIABETES MELLITUS 06/06/2010 YANG DO, JUSTIN K 278.00 OBESITY UNSPECIFIED 06/06/2010 YANG DO, JUSTIN K 780.57 SLEEP APNEA 06/06/2010 YANG DO, JUSTIN K V18.0 FAMILY HISTORY OF DIABETES MELLITUS 06/06/2010 YANG DO, JUSTIN K 278.00 OBESITY UNSPECIFIED 06/06/2010 YANG DO, JUSTIN K 780.57 SLEEP APNEA 06/06/2010 YANG DO, JUSTIN K V18.0 FAMILY HISTORY OF DIABETES MELLITUS 06/06/2010 YANG DO, JUSTIN K 278.00 OBESITY UNSPECIFIED 06/06/2010 YANG DO, JUSTIN K 780.57 SLEEP APNEA 06/06/2010 YANG DO, JUSTIN K V18.0 FAMILY HISTORY OF DIABETES MELLITUS 06/12/2010 250.02 DIABETES MELLITUS WITHOUT MENTION OF COMPLICATION TYPE II OR UNSPECIFIED TYPE UNCONTROLLED 06/12/2010 250.02 DIABETES MELLITUS WITHOUT MENTION OF COMPLICATION TYPE II OR UNSPECIFIED TYPE UNCONTROLLED 06/12/2010 [facility] ENVIRONMENTAL COMPLIANCE TECHNICIANELIA E 250.02 DIABETES MELLITUS WITHOUT MENTION OF COMPLICATION TYPE II OR UNSPECIFIED TYPE UNCONTROLLED 06/12/2010 [facility] ENVIRONMENTAL COMPLIANCE TECHNICIANELIA E 250.02 DIABETES MELLITUS WITHOUT MENTION OF COMPLICATION TYPE II OR UNSPECIFIED TYPE UNCONTROLLED 06/12/2010 [facility] ENVIRONMENTAL COMPLIANCE TECHNICIANELIA Jorgensen E 250.02 DIABETES MELLITUS WITHOUT MENTION OF COMPLICATION TYPE II OR UNSPECIFIED TYPE UNCONTROLLED 06/12/2010 YANG DO, JUSTIN K 250.02 DIABETES MELLITUS WITHOUT MENTION OF COMPLICATION TYPE II OR UNSPECIFIED TYPE UNCONTROLLED 06/12/2010 YANG DO, JUSTIN K 250.02 DIABETES MELLITUS WITHOUT MENTION OF COMPLICATION TYPE II OR UNSPECIFIED TYPE UNCONTROLLED 06/12/2010 YANG DO, JUSTIN K 250.02 DIABETES MELLITUS WITHOUT MENTION OF COMPLICATION TYPE II OR UNSPECIFIED TYPE UNCONTROLLED 06/12/2010 PATY HOANG LCPC 250.02 DIABETES MELLITUS WITHOUT MENTION OF COMPLICATION TYPE II OR UNSPECIFIED TYPE UNCONTROLLED 06/12/2010 YANG DO, JUSTIN K 250.02 DIABETES MELLITUS WITHOUT MENTION OF COMPLICATION TYPE II OR UNSPECIFIED TYPE UNCONTROLLED 06/12/2010 YANG DO, JUSTIN K 250.02 DIABETES MELLITUS WITHOUT MENTION OF COMPLICATION TYPE II OR UNSPECIFIED TYPE UNCONTROLLED 06/12/2010 YANG DO, JUSTIN K 250.02 DIABETES MELLITUS WITHOUT MENTION OF COMPLICATION TYPE II OR UNSPECIFIED TYPE UNCONTROLLED 06/12/2010 YANG DO, JUSTIN K 250.02 DIABETES MELLITUS WITHOUT MENTION OF COMPLICATION TYPE II OR UNSPECIFIED TYPE UNCONTROLLED 06/12/2010 YANG DO, JUSTIN K 250.02 DIABETES MELLITUS WITHOUT MENTION OF COMPLICATION TYPE II OR UNSPECIFIED TYPE UNCONTROLLED 06/12/2010 YANG DO, JSUTIN K 250.02 DIABETES MELLITUS WITHOUT MENTION OF COMPLICATION TYPE II OR UNSPECIFIED TYPE UNCONTROLLED 09/25/2010 729.5 PAIN IN LIMB 09/25/2010 729.5 PAIN IN LIMB 09/25/2010 [facility] ENVIRONMENTAL COMPLIANCE TECHNICIAN, ELIA E 729.5 PAIN IN LIMB 09/25/2010 [facility] ENVIRONMENTAL COMPLIANCE TECHNICIAN, ELIA E 729.5 PAIN IN LIMB 09/25/2010 [facility] ENVIRONMENTAL COMPLIANCE TECHNICIAN, ELIA E 729.5 PAIN IN LIMB 09/25/2010 YANG DO, JUSTIN K 729.5 PAIN IN LIMB 09/25/2010 YANG DO, JUSTIN K 729.5 PAIN IN LIMB 09/25/2010 YANG DO, JUSTIN K 729.5 PAIN IN LIMB 09/25/2010 PATY HOANG LCPC 729.5 PAIN IN LIMB 09/25/2010 YANG DO, JUSTIN K 729.5 PAIN IN LIMB 09/25/2010 YANG DO, JUSTIN K 729.5 PAIN IN LIMB 09/25/2010 YANG DO, JUSTIN K 729.5 PAIN IN LIMB 09/25/2010 YANG DO, JUSTIN K 729.5 PAIN IN LIMB 09/25/2010 YANG DO, JUSTIN K 729.5 PAIN IN LIMB 09/25/2010 YANG DO, JUSTIN K 729.5 PAIN IN LIMB 08/14/2011 250.00 DIABETES MELLITUS TYPE 2 08/14/2011 272.4 DYSLIPIDEMIA 08/14/2011 682.7 SKIN ABSCESS OF THE HEEL 08/14/2011 250.00 DIABETES MELLITUS TYPE 2 08/14/2011 272.4 DYSLIPIDEMIA 08/14/2011 682.7 SKIN ABSCESS OF THE HEEL 08/14/2011 [facility] ENVIRONMENTAL COMPLIANCE TECHNICIAN, ELIA E 250.00 DIABETES MELLITUS TYPE 2 08/14/2011 [facility] ENVIRONMENTAL COMPLIANCE TECHNICIAN, ELIA E 272.4 DYSLIPIDEMIA 08/14/2011 [facility] ENVIRONMENTAL COMPLIANCE TECHNICIAN, ELIA E 682.7 SKIN ABSCESS OF THE HEEL 08/14/2011 [facility] ENVIRONMENTAL COMPLIANCE TECHNICIAN, ELIA E 250.00 DIABETES MELLITUS TYPE 2 08/14/2011 [facility] ENVIRONMENTAL COMPLIANCE TECHNICIAN, ELIA E 272.4 DYSLIPIDEMIA 08/14/2011 [facility] ENVIRONMENTAL COMPLIANCE TECHNICIAN, ELIA E 682.7 SKIN ABSCESS OF THE HEEL 08/14/2011 [facility] ENVIRONMENTAL COMPLIANCE TECHNICIAN, ELIA E 250.00 DIABETES MELLITUS TYPE 2 08/14/2011 [facility] ENVIRONMENTAL COMPLIANCE TECHNICIAN, ELIA E 272.4 DYSLIPIDEMIA 08/14/2011 [facility] ENVIRONMENTAL COMPLIANCE TECHNICIAN, ELIA E 682.7 SKIN ABSCESS OF THE HEEL 08/14/2011 YANG DO, JUSTIN K 250.00 DIABETES MELLITUS TYPE 2 08/14/2011 YANG DO, JUSTIN K 272.4 DYSLIPIDEMIA 08/14/2011 YANG DO, JUSTIN K 682.7 SKIN ABSCESS OF THE HEEL 08/14/2011 YANG DO, JUSTIN K 250.00 DIABETES MELLITUS TYPE 2 08/14/2011 YANG DO, JUSTIN K 272.4 DYSLIPIDEMIA 08/14/2011 YANG DO, JUSTIN K 682.7 SKIN ABSCESS OF THE HEEL 08/14/2011 YANG DO, JUSTIN K 250.00 DIABETES MELLITUS TYPE 2 08/14/2011 YANG DO, JUSTIN K 272.4 DYSLIPIDEMIA 08/14/2011 YANG DO, JUSTIN K 682.7 SKIN ABSCESS OF THE HEEL 08/14/2011 NATALYA EDITOR AT LAR[employer], PATY B 250.00 DIABETES MELLITUS TYPE 2 08/14/2011 NATALYA EDITOR AT LAR[employer], PATY B 272.4 DYSLIPIDEMIA 08/14/2011 NATALYA EDITOR AT LAR[employer], PATY B 682.7 SKIN ABSCESS OF THE HEEL 08/14/2011 YANG DO, JUSTIN K 250.00 DIABETES MELLITUS TYPE 2 08/14/2011 YANG DO, JUSTIN K 272.4 DYSLIPIDEMIA 08/14/2011 YANG DO, JUSTIN K 682.7 SKIN ABSCESS OF THE HEEL 08/14/2011 YANG DO, JUSTIN K 250.00 DIABETES MELLITUS TYPE 2 08/14/2011 YANG DO, JUSTIN K 272.4 DYSLIPIDEMIA 08/14/2011 YANG DO, JUSTIN K 682.7 SKIN ABSCESS OF THE HEEL 08/14/2011 YANG DO, JUSTIN K 250.00 DIABETES MELLITUS TYPE 2 08/14/2011 YANG DO, JUSTIN K 272.4 DYSLIPIDEMIA 08/14/2011 YANG DO, JUSTIN K 682.7 SKIN ABSCESS OF THE HEEL 08/14/2011 YANG DO, JUSTIN K 250.00 DIABETES MELLITUS TYPE 2 08/14/2011 YANG DO, JUSTIN K 272.4 DYSLIPIDEMIA 08/14/2011 YANG DO, JUSTIN K 682.7 SKIN ABSCESS OF THE HEEL 08/14/2011 YANG DO, JUSTIN K 250.00 DIABETES MELLITUS TYPE 2 08/14/2011 YANG DO, JUSTIN K 272.4 DYSLIPIDEMIA 08/14/2011 YANG DO, JUSTIN K 682.7 SKIN ABSCESS OF THE HEEL 08/14/2011 YANG DO, JUSTIN K 250.00 DIABETES MELLITUS TYPE 2 08/14/2011 YANG DO, JUSTIN K 272.4 DYSLIPIDEMIA 08/14/2011 YANG DO, JUSTIN K 682.7 SKIN ABSCESS OF THE HEEL 08/21/2011 719.45 joint pain, localized in the hip 08/21/2011 719.45 joint pain, localized in the hip 08/21/2011 [facility] ENVIRONMENTAL COMPLIANCE TECHNICIAN, ELIA E 719.45 joint pain, localized in the hip 08/21/2011 [facility] ENVIRONMENTAL COMPLIANCE TECHNICIAN, ELIA E 719.45 joint pain, localized in the hip 08/21/2011 HE[facility]IG ENVIRONMENTAL COMPLIANCE TECHNICIAN, ELIA E 719.45 joint pain, localized in the hip 08/21/2011 YANG DO, JUSTIN K 719.45 joint pain, localized in the hip 08/21/2011 YANG DO, JUSTIN K 719.45 joint pain, localized in the hip 08/21/2011 YANG DO, JUSTIN K 719.45 joint pain, localized in the hip 08/21/2011 PATY HOANG LCPC 719.45 joint pain, localized in the hip 08/21/2011 YANG DO, JUSTIN K 719.45 joint pain, localized in the hip 08/21/2011 YANG DO, JUSTIN K 719.45 joint pain, localized in the hip 08/21/2011 YANG DO, JUSTIN K 719.45 JOINT PAIN, LOCALIZED IN THE HIP 08/21/2011 YANG DO, JUSTIN K 719.45 JOINT PAIN, LOCALIZED IN THE HIP 08/21/2011 YANG DO, JUSTIN K 719.45 JOINT PAIN, LOCALIZED IN THE HIP 08/21/2011 YANG DO, JUSTIN K 719.45 JOINT PAIN, LOCALIZED IN THE HIP 11/27/2011 250.60 DIABETES W/ NEUROPATHY; DM TYPE 2 11/27/2011 250.60 DIABETES W/ NEUROPATHY; DM TYPE 2 11/27/2011 COURTNEY SAEED ELIA E 250.60 DIABETES W/ NEUROPATHY; DM TYPE 2 11/27/2011 COURTNEY SAEED ELIA E 250.60 DIABETES W/ NEUROPATHY; DM TYPE 2 11/27/2011 COURTNEY SAEED ELIA E 250.60 DIABETES W/ NEUROPATHY; DM TYPE 2 11/27/2011 YANG DO, JUSTIN K 250.60 DIABETES W/ NEUROPATHY; DM TYPE 2 11/27/2011 YANG DO, JUSTIN K 250.60 DIABETES W/ NEUROPATHY; DM TYPE 2 11/27/2011 YANG DO, JUSTIN K 250.60 DIABETES W/ NEUROPATHY; DM TYPE 2 11/27/2011 NATALYA EDITOR AT LARGEPATY MARTIN 250.60 DIABETES W/ NEUROPATHY; DM TYPE 2 11/27/2011 YANG DO, JUSTIN K 250.60 DIABETES W/ NEUROPATHY; DM TYPE 2 11/27/2011 YANG DO, JUSTIN K 250.60 DIABETES W/ NEUROPATHY; DM TYPE 2 11/27/2011 YANG DO, JUSTIN K 250.60 DIABETES W/ NEUROPATHY; DM TYPE 2 11/27/2011 YANG DO, JUSTIN K 250.60 DIABETES W/ NEUROPATHY; DM TYPE 2 11/27/2011 YANG DO, JUSTIN K 250.60 DIABETES W/ NEUROPATHY; DM TYPE 2 11/27/2011 YANG DO, JUSTIN K 250.60 DIABETES W/ NEUROPATHY; DM TYPE 2 12/02/2011 NODX NO DIAGNOSIS 12/02/2011 NODX NO DIAGNOSIS 12/02/2011 ELIA VALDEZ APRN E NODX NO DIAGNOSIS 12/02/2011 COURTNEY SAEED, ELIA E NODX NO DIAGNOSIS 12/02/2011 [facility] ENVIRONMENTAL COMPLIANCE TECHNICIAN, ELIA E NODX NO DIAGNOSIS 12/02/2011 YANG DO, JUSTIN K NODX NO DIAGNOSIS 12/02/2011 YANG DO, JUSTIN K NODX NO DIAGNOSIS 12/02/2011 YANG DO, JUTSIN K NODX NO DIAGNOSIS 12/02/2011 PATY HOANG LCPC B NODX NO DIAGNOSIS 12/02/2011 YANG DO, JUSTIN K NODX NO DIAGNOSIS 12/02/2011 YANG DO, JUSTIN K NODX NO DIAGNOSIS 12/02/2011 YANG DO, JUSTIN K NODX NO DIAGNOSIS 12/02/2011 YANG DO, JUSTIN K NODX NO DIAGNOSIS 12/02/2011 YANG DO, JUSTIN K NODX NO DIAGNOSIS 12/02/2011 YANG DO, JUSTIN K NODX NO DIAGNOSIS 12/04/2011 682.6 CELLULITIS AND ABSCESS OF LEG EXCEPT FOOT 12/04/2011 682.6 CELLULITIS AND ABSCESS OF LEG EXCEPT FOOT 12/04/2011 LESLEY VALDEZ APRNSIE E 682.6 CELLULITIS AND ABSCESS OF LEG EXCEPT FOOT 12/04/2011 COURTNEY REEDN ELIA E 682.6 CELLULITIS AND ABSCESS OF LEG EXCEPT FOOT 12/04/2011 [facility] ENVIRONMENTAL COMPLIANCE TECHNICIAN, ELIA E 682.6 CELLULITIS AND ABSCESS OF LEG EXCEPT FOOT 12/04/2011 YANG DO, JUSTIN K 682.6 CELLULITIS AND ABSCESS OF LEG EXCEPT FOOT 12/04/2011 YANG DO, JUSTIN K 682.6 CELLULITIS AND ABSCESS OF LEG EXCEPT FOOT 12/04/2011 YANG DO, JUSTIN K 682.6 CELLULITIS AND ABSCESS OF LEG EXCEPT FOOT 12/04/2011 PATY HOANG LCPC B 682.6 CELLULITIS AND ABSCESS OF LEG EXCEPT FOOT 12/04/2011 YANG DO, JUSTIN K 682.6 CELLULITIS AND ABSCESS OF LEG EXCEPT FOOT 12/04/2011 YANG DO, JUSTIN K 682.6 CELLULITIS AND ABSCESS OF LEG EXCEPT FOOT 12/04/2011 YANG DO, JUSTIN K 682.6 CELLULITIS AND ABSCESS OF LEG EXCEPT FOOT 12/04/2011 YANG DO, JUSTIN K 682.6 CELLULITIS AND ABSCESS OF LEG EXCEPT FOOT 12/04/2011 YANG DO, JUSTIN K 682.6 CELLULITIS AND ABSCESS OF LEG EXCEPT FOOT 12/04/2011 YANG DO, JUSTIN K 682.6 CELLULITIS AND ABSCESS OF LEG EXCEPT FOOT 12/08/2011 709.9 DERMATOLOGY - NON- INFECTIOUS 12/08/2011 709.9 DERMATOLOGY - NON- INFECTIOUS 12/08/2011 [facility] 709.9 DERMATOLOGY - NON-INFECTIOUS 12/08/2011 [facility] ENVIRONMENTAL COMPLIANCE TECHNICIANFRANCESCAE E 709.9 DERMATOLOGY - NON-INFECTIOUS 12/08/2011 [facility] ENVIRONMENTAL COMPLIANCE TECHNICIANLESLEYELIA E 709.9 DERMATOLOGY - NON-INFECTIOUS 12/08/2011 YANG DO, JUSTIN K 709.9 DERMATOLOGY - NON-INFECTIOUS 12/08/2011 YANG DO, JUSTIN K 709.9 DERMATOLOGY - NON-INFECTIOUS 12/08/2011 YANG DO, JUSTIN K 709.9 DERMATOLOGY - NON-INFECTIOUS 12/08/2011 PATY HOANG LCPC 709.9 DERMATOLOGY - NON-INFECTIOUS 12/08/2011 YANG DO, JUSTIN K 709.9 DERMATOLOGY - NON-INFECTIOUS 12/08/2011 YANG DO, JUSTIN K 709.9 DERMATOLOGY - NON-INFECTIOUS 12/08/2011 YANG DO, JUSTIN K 709.9 DERMATOLOGY - NON-INFECTIOUS 12/08/2011 YANG DO, JUSTIN K 709.9 DERMATOLOGY - NON-INFECTIOUS 12/08/2011 YANG DO, JUSTIN K 709.9 DERMATOLOGY - NON-INFECTIOUS 12/08/2011 YANG DO, JUSTIN K 709.9 DERMATOLOGY - NON-INFECTIOUS 09/21/2012 682.1 CELLULITIS AND ABSCESS OF NECK 09/21/2012 RONITALIYAH REEDNLESLEYELIA E 682.1 CELLULITIS AND ABSCESS OF NECK 09/21/2012 [facility] REEDNLES[facility]EL[facility] E 682.1 CELLULITIS AND ABSCESS OF NECK 09/21/2012 RONITALIYAH REEDNLESLEYELIA E 682.1 CELLULITIS AND ABSCESS OF NECK 09/21/2012 YANG DO, JUSTIN K 682.1 CELLULITIS AND ABSCESS OF NECK 09/21/2012 YANG DO, JUSTIN K 682.1 CELLULITIS AND ABSCESS OF NECK 09/21/2012 YANG DO, JUSTIN K 682.1 CELLULITIS AND ABSCESS OF NECK 09/21/2012 PATY HOANG LCPC B 682.1 CELLULITIS AND ABSCESS OF NECK 09/21/2012 YANG DO, JUSTIN K 682.1 CELLULITIS AND ABSCESS OF NECK 09/21/2012 YANG DO, JUSTIN K 682.1 CELLULITIS AND ABSCESS OF NECK 09/21/2012 YANG DO, JUSTIN K 682.1 CELLULITIS AND ABSCESS OF NECK 09/21/2012 YANG DO, JUSTIN K 682.1 CELLULITIS AND ABSCESS OF NECK 09/21/2012 YANG DO, JUSTIN K 682.1 CELLULITIS AND ABSCESS OF NECK 09/21/2012 YANG DO, JUSTIN K 682.1 CELLULITIS AND ABSCESS OF NECK 09/26/2012 530.11 REFLUX ESOPHAGITIS 09/26/2012 [facility] ELIA SAEED E 530.11 REFLUX ESOPHAGITIS 09/26/2012 [facility] FRANCESCA SAEEDE E 530.11 REFLUX ESOPHAGITIS 09/26/2012 [facility] FRANCESCA SAEEDE E 530.11 REFLUX ESOPHAGITIS 09/26/2012 YANG DO, JUSTIN K 530.11 REFLUX ESOPHAGITIS 09/26/2012 YANG DO, JUSTIN K 530.11 REFLUX ESOPHAGITIS 09/26/2012 YANG DO, JUSTIN K 530.11 REFLUX ESOPHAGITIS 09/26/2012 PATY HOANG LCPC 530.11 REFLUX ESOPHAGITIS 09/26/2012 YANG DO, JUSTIN K 530.11 REFLUX ESOPHAGITIS 09/26/2012 YANG DO, JUSTIN K 530.11 REFLUX ESOPHAGITIS 09/26/2012 YANG DO, JUSTIN K 530.11 REFLUX ESOPHAGITIS 09/26/2012 YANG DO, JUSTIN K 530.11 REFLUX ESOPHAGITIS 09/26/2012 YANG DO, JUSTIN K 530.11 REFLUX ESOPHAGITIS 09/26/2012 YANG DO, JUSTIN K 530.11 REFLUX ESOPHAGITIS 05/19/2013 RONITELIA LY APRN E 729.81 SWELLING OF LIMB 05/19/2013 RONITELIA LY APRN 729.81 SWELLING OF LIMB 05/19/2013 YANG DO, JUSTIN K 729.81 SWELLING OF LIMB 05/19/2013 YANG DO, JUSTIN K 729.81 SWELLING OF LIMB 05/19/2013 YANG DO, JUSTIN K 729.81 SWELLING OF LIMB 05/19/2013 PATY HOANG LCPC 729.81 SWELLING OF LIMB 05/19/2013 YANG DO, JUSTIN K 729.81 SWELLING OF LIMB 05/19/2013 YANG DO, JUSTIN K 729.81 SWELLING OF LIMB 05/19/2013 YANG DO, JUSTIN K 729.81 SWELLING OF LIMB 05/19/2013 YANG DO, JUSTIN K 729.81 SWELLING OF LIMB 05/19/2013 YANG DO, JUSTIN K 729.81 SWELLING OF LIMB 05/19/2013 YANG DO, JUSTIN K 729.81 SWELLING OF LIMB 06/05/2013 ELIA VALDEZ APRN V67.59 OTHER FOLLOW-UP EXAMINATION 06/05/2013 YANG DO, JUSTIN K V67.59 OTHER FOLLOW-UP EXAMINATION 06/05/2013 YANG DO, JUSTIN K V67.59 OTHER FOLLOW-UP EXAMINATION 06/05/2013 YANG DO, JUSTIN K V67.59 OTHER FOLLOW-UP EXAMINATION 06/05/2013 PATY HOANG LCPC V67.59 OTHER FOLLOW-UP EXAMINATION 06/05/2013 YANG DO, JUSTIN K V67.59 OTHER FOLLOW-UP EXAMINATION 06/05/2013 YANG DO, JUSTIN K V67.59 OTHER FOLLOW-UP EXAMINATION 06/05/2013 YANG DO, JUSTIN K V67.59 OTHER FOLLOW-UP EXAMINATION 06/05/2013 YANG DO, JUSTIN K V67.59 OTHER FOLLOW-UP EXAMINATION 06/05/2013 YANG DO, JUSTIN K V67.59 OTHER FOLLOW-UP EXAMINATION 06/05/2013 YANG DO, JUSTIN K V67.59 OTHER FOLLOW-UP EXAMINATION 06/26/2013 YANG DO, JUSTIN K 311 DEPRESSIVE DISORDER NOT ELSEWHERE CLASSIFIED 06/26/2013 PATY HOANG LCPC B 311 DEPRESSIVE DISORDER NOT ELSEWHERE CLASSIFIED 06/26/2013 YANG DO, JUSTIN K 311 DEPRESSIVE DISORDER NOT ELSEWHERE CLASSIFIED 06/26/2013 YANG DO, JUSTIN K 311 DEPRESSIVE DISORDER NOT ELSEWHERE CLASSIFIED 06/26/2013 YANG DO, JUSTIN K 311 DEPRESSIVE DISORDER NOT ELSEWHERE CLASSIFIED 06/26/2013 YANG DO, JUSTIN K 311 DEPRESSIVE DISORDER NOT ELSEWHERE CLASSIFIED 06/26/2013 YANG DO, JUSTIN K 311 DEPRESSIVE DISORDER NOT ELSEWHERE CLASSIFIED 06/26/2013 YANG DO, JUSTIN K 311 DEPRESSIVE DISORDER NOT ELSEWHERE CLASSIFIED 02/08/2014 AYNG DO, JUSTIN K 719.46 PAIN IN JOINT INVOLVING LOWER LEG 02/08/2014 YANG DO, JUSTIN K 719.46 PAIN IN JOINT INVOLVING LOWER LEG 02/08/2014 YANG DO, JUSTIN K 719.46 PAIN IN JOINT INVOLVING LOWER LEG 02/08/2014 YANG DO, JUSTIN K 719.46 PAIN IN JOINT INVOLVING LOWER LEG 03/15/2014 YANG DO, JUSTIN K 892.0 OPEN WOUND OF FOOT EXCEPT TOE(S) ALONE WITHOUT COMPLICATION 03/15/2014 YANG DO, JUSTIN K 892.0 OPEN WOUND OF FOOT EXCEPT TOE(S) ALONE WITHOUT COMPLICATION 03/15/2014 YANG DO, JUSTIN K 892.0 OPEN WOUND OF FOOT EXCEPT TOE(S) ALONE WITHOUT COMPLICATION 03/16/2014 YANG DO, JUSTIN K 356.9 NEUROPATHY 03/16/2014 YANG DO, JUSTIN K 682.7 CELLULITIS - FOOT 03/16/2014 YANG DO, JUSTIN K 707.15 ULCER-FOOT/TOES 03/16/2014 YANG DO, JUSTIN K 736.73 PES CAVUS 03/16/2014 YANG DO, JUSTIN K 356.9 NEUROPATHY 03/16/2014 YANG DO, JUSTIN K 682.7 CELLULITIS - FOOT 03/16/2014 YANG DO, JUSTIN K 707.15 ULCER-FOOT/TOES 03/16/2014 YANG DO, JUSTIN K 736.73 PES CAVUS 05/11/2014 ELIA VALDEZ APRN Ot 729.81 07/27/2014 YANG DO, JUSTIN K 719.43 PAIN IN JOINT INVOLVING FOREARM 02/16/2015 ELIA VALDEZ ENVIRONMENTAL COMPLIANCE TECHNICIAN Ot 729.81 02/16/2015 WILMA ZAMBRANO MD (DDU) Ot V68.01 02/16/2015 WILMA ZAMBRANO MD (DDU) Ot V82.89 02/21/2015 AVNI CHILDRESS MD Ot E11.40 TYPE 2 DIABETES MELLITUS WITH DIABETIC N 02/21/2015 AVNI CHILDRESS MD Ot E66.01 MORBID (SEVERE) OBESITY DUE TO EXCESS CA 02/21/2015 AVNI CHILDRESS MD Ot I10 ESSENTIAL (PRIMARY) HYPERTENSION 02/21/2015 AVNI CHILDRESS MD Ot K21.9 GASTRO-ESOPHAGEAL REFLUX DISEASE WITHOUT 02/21/2015 AVNI CHILDRESS MD Ot K59.00 CONSTIPATION, UNSPECIFIED 02/21/2015 AVNI CHILDRESS MD Ot Z47.81 ENCOUNTER FOR ORTHOPEDIC AFTERCARE FOLLO 02/21/2015 MONROE VILLAFANA, AVNI Gutiérrez Ot Z68.41 BODY MASS INDEX (BMI) 40.0-44.9, ADULT 02/21/2015 AVNI CHILDRESS MD, Ot Z87.891 PERSONAL HISTORY OF NICOTINE DEPENDENCE 02/21/2015 AVNI CHILDRESS MD, Ot Z89.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222 NON-PRESSURE CHRONIC ULCER OF LEFT CALF 02/01/2017 JERRICA WELCH MD, Ot E11.622 TYPE 2 DIABETES MELLITUS WITH OTHER SKIN 02/01/2017 JERRICA WELCH MD Ot 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 02/01/2017 JERRICA WELCH MD Ot 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 02/01/2017 JERRICA WELCH MD Ot L97.222 NON-PRESSURE CHRONIC ULCER OF LEFT CALF 02/04/2017 JERRICA WELCH MD, Ot E11.622 TYPE 2 DIABETES MELLITUS WITH OTHER SKIN 02/04/2017 JERRICA WELHC MD Ot 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 02/04/2017 JERRICA WELCH MD Ot 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 02/04/2017 JERRICA WELCH MD Ot L97.222 NON-PRESSURE CHRONIC ULCER OF LEFT CALF 02/06/2017 JERRICA WELCH MD, Ot E11.622 TYPE 2 DIABETES MELLITUS WITH OTHER SKIN 02/06/2017 JERRICA WELCH MD Ot 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 [facility] 02/06/2017 JERRICA WELCH MD, Ot 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 02/06/2017 JERRICA WELCH MD, Ot L97.222 NON-PRESSURE CHRONIC ULCER OF LEFT CALF 02/09/2017 JERRICA WELCH MD Ot E11.622 TYPE 2 DIABETES MELLITUS WITH OTHER SKIN 02/09/2017 JERRICA WELCH MD Ot 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 [facility] 02/09/2017 JERRICA WELCH MD, Ot 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 02/09/2017 JERRICA WELCH MD, Ot L97.222 NON-PRESSURE CHRONIC ULCER OF LEFT CALF 02/09/2017 JERRICA WELCH MD, Ot E11.622 TYPE 2 DIABETES MELLITUS WITH OTHER SKIN 02/09/2017 JERRICA WELCH MD, Ot 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 [facility] 02/09/2017 JERRICA WELCH MD, Ot 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 02/09/2017 JERRICA WELCH MD, Ot L97.222 NON-PRESSURE CHRONIC ULCER OF LEFT CALF 02/17/2017 JERRICA WELCH MD, Ot E11.622 TYPE 2 DIABETES MELLITUS WITH OTHER SKIN 02/17/2017 JERRICA WELCH MD Ot 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 [facility] 02/17/2017 JERRICA WELCH MD, Ot 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 02/17/2017 JERRICA WELCH MD Ot L97.222 NON-PRESSURE CHRONIC ULCER OF LEFT CALF 02/17/2017 JERRICA WELCH MD Ot D68.59 OTHER PRIMARY THROMBOPHILIA 02/24/2017 JERRICA WELCH MD Ot E11.622 TYPE 2 DIABETES MELLITUS WITH OTHER SKIN 02/24/2017 JERRICA WELCH MD, Ot 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 02/24/2017 JERRICA WELCH MD, Ot L97.222 NON-PRESSURE CHRONIC ULCER OF LEFT CALF 03/09/2017 JERRICA WELCH MD Ot E11.622 TYPE 2 DIABETES MELLITUS WITH OTHER SKIN 03/09/2017 JERRICA WELCH MD, Ot 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 03/09/2017 JERRICA WELCH MD Ot L97.222 NON-PRESSURE CHRONIC ULCER OF LEFT CALF 03/09/2017 JERRICA WELCH MD Ot E11.622 TYPE 2 DIABETES MELLITUS WITH OTHER SKIN 03/09/2017 JERRICA WELCH MD Ot 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 03/09/2017 JERRICA WELCH MD, Ot L97.222 NON-PRESSURE CHRONIC ULCER OF LEFT CALF 06/15/2017 JERRICA WELCH MD, Ot E11.622 TYPE 2 DIABETES MELLITUS WITH OTHER SKIN 06/15/2017 JERRICA WELCH MD, Ot L97.222 NON-PRESSURE CHRONIC ULCER OF LEFT CALF 06/17/2017 JERRICA WELCH MD, Ot E11.622 TYPE 2 DIABETES MELLITUS WITH OTHER SKIN 06/17/2017 JERRICA WELCH MD, Ot E11.65 TYPE 2 DIABETES MELLITUS WITH HYPERGLYCE 06/17/2017 JERRICA WELCH MD Ot 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 06/17/2017 JERRICA WELCH MD, Ot 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 06/17/2017 JERRICA WELCH MD Ot L97.222 NON-PRESSURE CHRONIC ULCER OF LEFT CALF 06/17/2017 JERRICA WELCH MD, Ot Z89.511 ACQUIRED ABSENCE OF RIGHT LEG BELOW KNEE 06/20/2017 JERRICA WELCH MD Ot E11.622 TYPE 2 DIABETES MELLITUS WITH OTHER SKIN 06/20/2017 JERRICA WELCH MD Ot E11.65 TYPE 2 DIABETES MELLITUS WITH HYPERGLYCE 06/20/2017 JERRICA WELCH MD Ot 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 06/20/2017 JERRICA WELCH MD Ot 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 06/20/2017 JERRICA WELCH MD Ot L97.222 NON-PRESSURE CHRONIC ULCER OF LEFT CALF 06/20/2017 JERRICA WELCH MD Ot Z89.511 ACQUIRED ABSENCE OF RIGHT LEG BELOW KNEE 06/22/2017 JERRICA WELCH MD Ot E11.622 TYPE 2 DIABETES MELLITUS WITH OTHER SKIN 06/22/2017 JERRICA WELCH MD Ot E11.65 TYPE 2 DIABETES MELLITUS WITH HYPERGLYCE 06/22/2017 JERRICA WELCH MD Ot 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 06/22/2017 JERRICA WELCH MD, Ot 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 06/22/2017 JERRICA WELCH MD, Ot L97.222 NON-PRESSURE CHRONIC ULCER OF LEFT CALF 06/22/2017 JERRICA WELCH MD, Ot Z89.511 ACQUIRED ABSENCE OF RIGHT LEG BELOW KNEE 06/29/2017 JERRICA WELCH MD, Ot E11.622 TYPE 2 DIABETES MELLITUS WITH OTHER SKIN 06/29/2017 JERRICA WELCH MD, Ot E11.65 TYPE 2 DIABETES MELLITUS WITH HYPERGLYCE 06/29/2017 JERRICA WELCH MD, Ot 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 06/29/2017 JERRICA WELCH MD, Ot 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 06/29/2017 JERRICA WELCH MD, Ot Z89.511 ACQUIRED ABSENCE OF RIGHT LEG BELOW KNEE 06/30/2017 JERRICA WELCH MD, Ot E11.622 TYPE 2 DIABETES MELLITUS WITH OTHER SKIN 06/30/2017 JERRICA WELCH MD, Ot E11.65 TYPE 2 DIABETES MELLITUS WITH HYPERGLYCE 06/30/2017 JERRICA WELCH MD, Ot 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 06/30/2017 JERRICA WELCH MD, Ot 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 06/30/2017 JERRICA WELCH MD, Ot L97.222 NON-PRESSURE CHRONIC ULCER OF LEFT CALF 06/30/2017 JERRICA WELCH MD, Ot Z89.511 ACQUIRED ABSENCE OF RIGHT LEG BELOW KNEE 06/30/2017 JERRICA WELCH MD, Ot E11.622 TYPE 2 DIABETES MELLITUS WITH OTHER SKIN 06/30/2017 JERRICA WELCH MD, Ot L97.222 NON-PRESSURE CHRONIC ULCER OF LEFT CALF 07/07/2017 JERRICA WELCH MD, Ot E11.622 TYPE 2 DIABETES MELLITUS WITH OTHER SKIN 07/07/2017 JERRICA WELCH MD, Ot E11.65 TYPE 2 DIABETES MELLITUS WITH HYPERGLYCE 07/07/2017 JERRICA WELCH MD, Ot 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 07/07/2017 JERRICA WELCH MD, Ot 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 07/07/2017 JERRICA WELCH MD, Ot L97.222 NON-PRESSURE CHRONIC ULCER OF LEFT CALF 07/07/2017 JERRICA WELCH MD, Ot Z89.511 ACQUIRED ABSENCE OF RIGHT LEG BELOW KNEE 07/15/2017 JERRICA WELCH MD, Ot E11.622 TYPE 2 DIABETES MELLITUS WITH OTHER SKIN 07/15/2017 JERRICA WELCH MD, Ot E11.65 TYPE 2 DIABETES MELLITUS WITH HYPERGLYCE 07/15/2017 JERRICA WELCH MD, Ot 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 07/15/2017 JERRICA WELCH MD, Ot 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 07/15/2017 JERRICA WELCH MD, Ot Z89.511 ACQUIRED ABSENCE OF RIGHT LEG BELOW KNEE 07/30/2017 JERRICA WELCH MD, Ot E11.622 TYPE 2 DIABETES MELLITUS WITH OTHER SKIN 07/30/2017 JERRICA WELCH MD, Ot 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 07/30/2017 JERRICA WELCH MD, Ot 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 07/30/2017 JERRICA WELCH MD, Ot Z89.511 ACQUIRED ABSENCE OF RIGHT LEG BELOW KNEE 08/05/2017 JERRICA MENDEZ Ot S43.001S UNSPECIFIED SUBLUXATION OF RIGHT SHOULDE 08/05/2017 JERRICA MENDEZ Ot Z53.8 PROCEDURE AND TREATMENT NOT CARRIED OUT 10/26/2018 AVNI VILLANUEVA DO Ot Z01.818 ENCOUNTER FOR OTHER PREPROCEDURAL EXAMIN 10/27/2018 AVNI VILLANUEVA DO Ot Z01.818 ENCOUNTER FOR OTHER PREPROCEDURAL EXAMIN 10/27/2018 AVNI VILLANUEVA DO Ot Z01.818 ENCOUNTER FOR OTHER PREPROCEDURAL EXAMIN 10/27/2018 JERRICA WELCH MD, Ot E11.622 TYPE 2 DIABETES MELLITUS WITH OTHER SKIN 10/27/2018 JERRICA WELCH MD Ot 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 10/27/2018 JERRICA WELCH MD, Ot 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 10/27/2018 JERRICA WELCH MD, Ot L97.222 NON-PRESSURE CHRONIC ULCER OF LEFT CALF 10/27/2018 JERRICA WELCH MD, Ot E11.622 TYPE 2 DIABETES MELLITUS WITH OTHER SKIN 10/27/2018 JERRICA WELCH MD, Ot 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 10/27/2018 JERRICA WLECH MD Ot 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 10/27/2018 JERRICA WELCH MD Ot L97.222 NON-PRESSURE CHRONIC ULCER OF LEFT CALF 10/27/2018 JERRICA WELCH MD Ot E11.622 TYPE 2 DIABETES MELLITUS WITH OTHER SKIN 10/27/2018 JERRICA WELCH MD, Ot 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 10/27/2018 JERRICA WELCH MD, Ot 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 10/27/2018 JERRICA WELCH MD Ot L97.222 NON-PRESSURE CHRONIC ULCER OF LEFT CALF 10/27/2018 JERRICA WELCH MD, Ot D68.59 OTHER PRIMARY THROMBOPHILIA 10/27/2018 JERRICA WELCH MD Ot E11.622 TYPE 2 DIABETES MELLITUS WITH OTHER SKIN 10/27/2018 JERRICA WELCH MD Ot 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 10/27/2018 JERRICA WELCH MD Ot L97.222 NON-PRESSURE CHRONIC ULCER OF LEFT CALF 10/27/2018 JERRICA WELCH MD Ot E11.622 TYPE 2 DIABETES MELLITUS WITH OTHER SKIN 10/27/2018 JERRICA WELCH MD Ot 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 10/27/2018 JERRICA WELCH MD Ot L97.222 NON-PRESSURE CHRONIC ULCER OF LEFT CALF 10/27/2018 JERRICA WELCH MD Ot E11.622 TYPE 2 DIABETES MELLITUS WITH OTHER SKIN 10/27/2018 JERRICA WELCH MD Ot 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 10/27/2018 JERRICA WELCH MD Ot L97.222 NON-PRESSURE CHRONIC ULCER OF LEFT CALF 10/27/2018 JERRICA WELCH MD Ot E11.622 TYPE 2 DIABETES MELLITUS WITH OTHER SKIN 10/27/2018 JERRICA WELCH MD Ot E11.65 TYPE 2 DIABETES MELLITUS WITH HYPERGLYCE 10/27/2018 JERRICA WELCH MD Ot 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 10/27/2018 JERRICA WELCH MD Ot 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 10/27/2018 JERRICA WELCH MD, Ot L97.222 NON-PRESSURE CHRONIC ULCER OF LEFT CALF 10/27/2018 JERRICA WELCH MD, Ot Z89.511 ACQUIRED ABSENCE OF RIGHT LEG BELOW KNEE 10/27/2018 JERRICA WELCH MD, Ot E11.622 TYPE 2 DIABETES MELLITUS WITH OTHER SKIN 10/27/2018 JERRICA WELCH MD, Ot L97.222 NON-PRESSURE CHRONIC ULCER OF LEFT CALF 10/27/2018 JERRICA WELCH MD, Ot E11.622 TYPE 2 DIABETES MELLITUS WITH OTHER SKIN 10/27/2018 JERRICA WELCH MD, Ot E11.65 TYPE 2 DIABETES MELLITUS WITH HYPERGLYCE 10/27/2018 JERRICA WELCH MD, Ot 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 10/27/2018 JERRICA WELCH MD, Ot 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 10/27/2018 JERRICA WELCH MD, Ot L97.222 NON-PRESSURE CHRONIC ULCER OF LEFT CALF 10/27/2018 JERRICA WELCH MD, Ot Z89.511 ACQUIRED ABSENCE OF RIGHT LEG BELOW KNEE 10/27/2018 JERRICA WELCH MD, Ot E11.622 TYPE 2 DIABETES MELLITUS WITH OTHER SKIN 10/27/2018 JERRICA WELCH MD, Ot E11.65 TYPE 2 DIABETES MELLITUS WITH HYPERGLYCE 10/27/2018 JERRICA WELCH MD, Ot 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 10/27/2018 JERRICA WELCH MD, Ot 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 10/27/2018 JERRICA WELCH MD, Ot Z89.511 ACQUIRED ABSENCE OF RIGHT LEG BELOW KNEE 10/27/2018 JERRICA WELCH MD, Ot E11.622 TYPE 2 DIABETES MELLITUS WITH OTHER SKIN 10/27/2018 JERRICA WELCH MD, Ot 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 10/27/2018 JERRICA WELCH MD, Ot 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 10/27/2018 JERRICA WELCH MD, Ot Z89.511 ACQUIRED ABSENCE OF RIGHT LEG BELOW KNEE 10/27/2018 JERRICA MENDEZ Ot S43.001S UNSPECIFIED SUBLUXATION OF RIGHT SHOULDE 10/27/2018 JERRICA MENDEZ Ot Z53.8 PROCEDURE AND TREATMENT NOT CARRIED OUT 10/28/2018 JERRICA WELCH MD, Ot E11.622 TYPE 2 DIABETES MELLITUS WITH OTHER SKIN 10/28/2018 JERRICA WELCH MD Ot 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 10/28/2018 JERRICA WELCH MD Ot 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 10/28/2018 JERRICA WELCH MD Ot L97.222 NON-PRESSURE CHRONIC ULCER OF LEFT CALF 10/28/2018 JERRICA WELCH MD Ot E11.622 TYPE 2 DIABETES MELLITUS WITH OTHER SKIN 10/28/2018 JERRICA WELCH MD Ot 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 10/28/2018 JERRICA WELCH MD, Ot 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 10/28/2018 JERRICA WELCH MD, Ot L97.222 NON-PRESSURE CHRONIC ULCER OF LEFT CALF 10/28/2018 JERRICA WELCH MD, Ot E11.622 TYPE 2 DIABETES MELLITUS WITH OTHER SKIN 10/28/2018 JERRICA WELCH MD Ot 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 10/28/2018 JERRICA WELCH MD Ot 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 10/28/2018 JERRICA WELCH MD Ot L97.222 NON-PRESSURE CHRONIC ULCER OF LEFT CALF 10/28/2018 JERRICA WELCH MD Ot D68.59 OTHER PRIMARY THROMBOPHILIA 10/28/2018 JERRICA WELCH MD Ot E11.622 TYPE 2 DIABETES MELLITUS WITH OTHER SKIN 10/28/2018 JERRICA WELCH MD Ot 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 10/28/2018 JERRICA WELCH MD Ot L97.222 NON-PRESSURE CHRONIC ULCER OF LEFT CALF 10/28/2018 JERRICA WELCH MD Ot E11.622 TYPE 2 DIABETES MELLITUS WITH OTHER SKIN 10/28/2018 JERRICA WELCH MD Ot 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 10/28/2018 JERRICA WELCH MD Ot L97.222 NON-PRESSURE CHRONIC ULCER OF LEFT CALF 10/28/2018 JERRICA WELCH MD Ot E11.622 TYPE 2 DIABETES MELLITUS WITH OTHER SKIN 10/28/2018 JERRICA WELCH MD Ot 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 10/28/2018 JERRICA WELCH MD, Ot L97.222 NON-PRESSURE CHRONIC ULCER OF LEFT CALF 10/28/2018 JERRICA WELCH MD, Ot E11.622 TYPE 2 DIABETES MELLITUS WITH OTHER SKIN 10/28/2018 JERRICA WELCH MD, Ot E11.65 TYPE 2 DIABETES MELLITUS WITH HYPERGLYCE 10/28/2018 JERRICA WELCH MD Ot 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 10/28/2018 JERRICA WELCH MD Ot 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 10/28/2018 JERRICA WELCH MD, Ot L97.222 NON-PRESSURE CHRONIC ULCER OF LEFT CALF 10/28/2018 JERRICA WELCH MD, Ot Z89.511 ACQUIRED ABSENCE OF RIGHT LEG BELOW KNEE 10/28/2018 JERRICA WELCH MD, Ot E11.622 TYPE 2 DIABETES MELLITUS WITH OTHER SKIN 10/28/2018 JERRICA WELCH MD, Ot L97.222 NON-PRESSURE CHRONIC ULCER OF LEFT CALF 10/28/2018 JERRICA WELCH MD, Ot E11.622 TYPE 2 DIABETES MELLITUS WITH OTHER SKIN 10/28/2018 JERRICA WELCH MD, Ot E11.65 TYPE 2 DIABETES MELLITUS WITH HYPERGLYCE 10/28/2018 JERRICA WELCH MD, Ot 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 10/28/2018 JERRICA WELCH MD, Ot 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 10/28/2018 JERRICA WELCH MD, Ot L97.222 NON-PRESSURE CHRONIC ULCER OF LEFT CALF 10/28/2018 JERRICA WELCH MD, Ot Z89.511 ACQUIRED ABSENCE OF RIGHT LEG BELOW KNEE 10/28/2018 JERRICA WELCH MD Ot E11.622 TYPE 2 DIABETES MELLITUS WITH OTHER SKIN 10/28/2018 JERRICA WELCH MD, Ot E11.65 TYPE 2 DIABETES MELLITUS WITH HYPERGLYCE 10/28/2018 JERRICA WELCH MD Ot 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 10/28/2018 JERRICA WELCH MD, Ot 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 10/28/2018 JERRICA WELCH MD Ot Z89.511 ACQUIRED ABSENCE OF RIGHT LEG BELOW KNEE 10/28/2018 JERRICA WELCH MD Ot E11.622 TYPE 2 DIABETES MELLITUS WITH OTHER SKIN 10/28/2018 JERRICA WELCH MD Ot 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 10/28/2018 JERRICA WELCH MD Ot 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 10/28/2018 JERRICA WELCH MD Ot Z89.511 ACQUIRED ABSENCE OF RIGHT LEG BELOW KNEE 10/28/2018 JERRICA MENDEZ Ot S43.001S UNSPECIFIED SUBLUXATION OF RIGHT SHOULDE 10/28/2018 JERRICA MENDEZ Ot Z53.8 PROCEDURE AND TREATMENT NOT CARRIED OUT Procedures Code Description [place] [address] CULTURE WOUND (AEROBIC) 09/25/2012 63095 A1C (IN-HOUSE) 05/08/2013 PODIATRY INDU ESCUDERO 05/08/2013 72737 INFLUENZA A & B (IN-HOUSE) 05/19/2013 01935 US VENOUS THROMBOSIS IMAGING 05/19/2013 80430 VENOUS DOPPLER UNILATERAL/LIMITED 05/19/2013 50769 PSYCH DIAGNOSTIC EVALUATION 07/07/2013 13428 MICRO ALBUMIN-IN HOUSE 11/01/2013 32986 A1C (IN-HOUSE) 11/01/2013 83932 JOINT INJECTION- LARGE JOINT (SPECIFY MEDCIN DESCRIPTION) 02/08/2014 PODIATRY INDU ESCUDERO 03/15/2014 60352 XRAY HIP RIGHT UNILATERAL MIN 2 VIEWS 03/16/2014 63341 DEBRIDE SKIN TISSUE 03/16/2014 64100 XRAY FOOT RIGHT COMP MIN 3 VIEWS 03/16/2014 98577 A1C (IN-HOUSE) 07/27/2014 Results Test Result Range THYROID ANALYZER - 01/26/17 10:24 TSH 1.67 mIU/L 0.40-4.50 [id number] - 01/29/17 09:15 Lupus anticoagulant-sensitive activated partial thromboplastin time (APTT) in platelet poor plasma 26.8 s 20.6-39.2 PT panel - platelet poor plasma by coagulation assay 12.7 s 10.5-15.7 INR in platelet poor plasma by coagulation assay 0.9 0.7- 1.3 Pathology consultation and report FOOTNOTE NRG Factor VIII (VW factor) antigen assay 179 % 60-150 Homocysteine [mass/volume] in serum or plasma 10.3 % <=10.3 Serum cardiolipin IgG antibody detection 3.6 0.0-15.0 Serum cardiolipin IgM ab 5.3 [MPL'U] 0.0-12.5 Prothrombin gene [id number] mutation detection SEE FOOTNOTE NRG Serum beta 2 glycoprotein 1 IgM antibody detection 1.2 0.0- 20.0 Serum beta 2 glycoprotein 1 IgG antibody detection 1.5 0.0- 19.9 ANTICOAG? Unknown NRG Activated protein C (APC) resistance assay 2.39 % >=1.90 Functional protein C measurement - 01/29/17 09:15 Functional protein C measurement 170 % 70-130 Protein S actual/normal in Platelet poor plasma by Coagulation assay - 01/29/17 09:15 Protein S actual/normal in Platelet poor plasma by Coagulation assay 144 % 65-140 Dilute Frank's viper venom time - 01/29/17 09:15 Dilute Frank's viper venom time (DRVVT) screening test 0.94 % 0.00-1.20 Blood or tissue F5 gene p.R506Q detection by molecular genetics method - 02/03/17 09:30 Blood or tissue F5 gene p.R506Q detection by molecular genetics method Negative Negative Coagulation factor 5 activated measurement (units/volume) in platelet poor plasma by coagulation assay See Footnote NRG Bacteria identification in isolate by anaerobe culture - 02/10/17 08:59 Bacteria identification in isolate by anaerobe culture NOANA NRG Gram stain microscopy - 02/10/17 08:59 GRAM STAIN RESULT NO WBC'S OR BACTERIA OBSERVED NRG Bacteria identification in wound by culture - 02/10/17 08:59 Bacteria identification in wound by culture [id number] NR FREE TEXT EXTERNAL SENSITIVITY REPORTED AT 1806. 02-11-17 NRG QUANTITY OF GROWTH Moderate Growth NRG MRSA AGAR Screening test for MRSA is NEGATIVE (Final to follow) [facility] Bacterial susceptibility panel - 02/10/17 08:59 Oxacillin susceptibility test by minimum inhibitory concentration <= NRG Gentamicin susceptibility test by minimum inhibitory concentration <= NRG Clindamycin susceptibility test by minimum inhibitory concentration <= NRG Erythromycin susceptibility test by minimum inhibitory concentration <= NRG Trimethoprim/sulfamethoxazole susceptibility test by minimum inhibitoryconcentration <= NRG Vancomycin susceptibility test by minimum inhibitory concentration 1 NRG Levofloxacin susceptibility test by minimum inhibitory concentration <= NRG Rifampin susceptibility test by minimum inhibitory concentration <= NRG Tetracycline susceptibility test by minimum inhibitory concentration <= NRG Bacteria identification in isolate by anaerobe culture - 06/14/17 10:10 Bacteria identification in isolate by anaerobe culture NOANA NRG Gram stain microscopy - 06/14/17 10:10 GRAM STAIN RESULT FEW GRAM POSITIVE COCCI NRG Bacteria identification in wound by culture - 06/14/17 10:10 Bacteria identification in wound by culture [id number] NR FREE TEXT EXTERNAL SEE ISOLATE #2, SAME SENSITIVITY NRG QUANTITY OF GROWTH Scant Growth NR Bacterial susceptibility panel - 06/14/17 10:10 Oxacillin susceptibility test by minimum inhibitory concentration <= NRG Gentamicin susceptibility test by minimum inhibitory concentration <= NRG Clindamycin susceptibility test by minimum inhibitory concentration <= NRG Erythromycin susceptibility test by minimum inhibitory concentration 0.5 NRG Trimethoprim/sulfamethoxazole susceptibility test by minimum inhibitoryconcentration S NRG Vancomycin susceptibility test by minimum inhibitory concentration <= NRG Levofloxacin susceptibility test by minimum inhibitory concentration <= NRG Rifampin susceptibility test by minimum inhibitory concentration <= NRG Tetracycline susceptibility test by minimum inhibitory concentration <= NRG Bacterial susceptibility panel - 06/14/17 10:10 Gentamicin susceptibility test by minimum inhibitory concentration 8 NRG Trimethoprim/sulfamethoxazole susceptibility test by minimum inhibitoryconcentration R NRG Ampicillin susceptibility test by minimum inhibitory concentration <= NRG Tobramycin susceptibility test by minimum inhibitory concentration 8 NRG Cefazolin susceptibility test by minimum inhibitory concentration 8 NRG Ceftriaxone susceptibility test by minimum inhibitory concentration <= NRG Ampicillin/sulbactam susceptibility test by minimum inhibitory concentration <= NRG Piperacillin/tazobactam susceptibility test by minimum inhibitory concentration S NRG Ciprofloxacin susceptibility test by minimum inhibitory concentration >= NRG Meropenem susceptibility test by minimum inhibitory concentration <= NRG Aztreonam susceptibility test by minimum inhibitory concentration <= NRG Amikacin susceptibility test by minimum inhibitory concentration S NRG Complete blood count (CBC) with automated white blood cell (WBC) differential - 06/14/17 10:58 Blood leukocytes automated count (number/volume) 7.8 10*3/uL 4.3-11.0 Blood erythrocytes automated count (number/volume) 5.55 10*6/uL 4.35-5.85 Venous blood hemoglobin measurement (mass/volume) 16.1 g/dL 13.3-17.7 Blood hematocrit (volume fraction) 46 % 40-54 Automated erythrocyte mean corpuscular volume 82 [foz_us] 80-99 Automated erythrocyte mean corpuscular hemoglobin (mass per erythrocyte) 29 pg 25-34 Automated erythrocyte mean corpuscular hemoglobin concentration measurement (mass/volume) 35 g/dL 32-36 Automated erythrocyte distribution width ratio 13.1 % 10.0- 14.5 Automated blood platelet count (count/volume) 208 10*3/uL 130-400 Automated blood platelet mean volume measurement 11.2 [foz_us] 7.4-10.4 Automated blood neutrophils/100 leukocytes 61 % 42-75 Automated blood lymphocytes/100 leukocytes 28 % 12-44 Blood monocytes/100 leukocytes 9 % 0-12 Automated blood eosinophils/100 leukocytes 2 % 0-10 Automated blood basophils/100 leukocytes 0 % 0-10 Blood neutrophils automated count (number/volume) 4.7 10*3 1.8-7.8 Blood lymphocytes automated count (number/volume) 2.2 10*3 1.0-4.0 Blood monocytes automated count (number/volume) 0.7 10*3 0.0- 1.0 Automated eosinophil count 0.2 10*3/uL 0.0-0.3 Automated blood basophil count (count/volume) 0.0 10*3/uL 0.0-0.1 Comprehensive metabolic panel - 06/14/17 10:58 Serum or plasma sodium measurement (moles/volume) 136 mmol/L 135-145 Serum or plasma potassium measurement (moles/volume) 4.3 mmol/L 3.6-5.0 Serum or plasma chloride measurement (moles/volume) 108 mmol/L 98-107 Carbon dioxide 23 mmol/L 21-32 Serum or plasma anion gap determination (moles/volume) 5 mmol/L 5-14 Serum or plasma urea nitrogen measurement (mass/volume) 13 mg/dL 7-18 Serum or plasma creatinine measurement (mass/volume) 0.82 mg/dL 0.60-1.30 Serum or plasma urea nitrogen/creatinine mass ratio 16 NRG Serum or plasma creatinine measurement with calculation of estimated glomerular filtration rate > NRG Serum or plasma glucose measurement (mass/volume) 256 mg/dL 70-105 Serum or plasma calcium measurement (mass/volume) 9.3 mg/dL 8.5-10.1 Serum or plasma total bilirubin measurement (mass/volume) 0.5 mg/dL 0.1-1.0 Serum or plasma alkaline phosphatase measurement (enzymatic activity/volume) 48 U/L 40-136 Serum or plasma aspartate aminotransferase measurement (enzymatic activity/volume) 19 U/L 5-34 Serum or plasma alanine aminotransferase measurement (enzymatic activity/volume) 32 U/L 0-55 Serum or plasma protein measurement (mass/volume) 7.0 g/dL 6.4-8.2 Serum or plasma albumin measurement (mass/volume) 4.0 g/dL 3.2-4.5 PDM - 09 PANEL (PROFILE 1) - 10/17/18 11:29 Prescribed Drug 1 Hydrocodone NRG Creatinine 258.6 mg/dL > or=20.0 pH 6.66 4.5 - 9.0 Oxidant NEGATIVE mcg/mL <200 Amphetamines NEGATIVE ng/mL <500 medMATCH Amphetamines CONSISTENT NRG Benzodiazepines NEGATIVE ng/mL <100 medMATCH Benzodiazepines CONSISTENT NRG Marijuana Metabolite NEGATIVE ng/mL <20 medMATCH Marijuana Metab CONSISTENT NRG Cocaine Metabolite NEGATIVE ng/mL <150 medMATCH Cocaine Metab CONSISTENT NRG Opiates NEGATIVE ng/mL <100 medMATCH Opiates INCONSISTENT NRG Oxycodone NEGATIVE ng/mL <100 medMATCH Oxycodone CONSISTENT NRG COMMENT NRG Barbiturates NEGATIVE ng/mL <300 medMATCH Barbiturates CONSISTENT NRG Methadone Metabolite NEGATIVE ng/mL <100 medMATCH Methadone Metab CONSISTENT NRG Phencyclidine NEGATIVE ng/mL <25 medMATCH Phencyclidine CONSISTENT NRG Encounters ACCT No. Visit Date/Time Discharge Status Pt. Type Provider Facility Loc./Unit Complaint [id number] 10/26/2018 11:20:00 10/26/2018 23:59:59 [facility] Outpatient JERRICA MENDEZ APRN [facility] [place] [id number] 10/17/2018 11:20:00 Document Registration [id number] 01/26/2017 09:20:00 Document Registration [id number] 10/27/2018 09:30:00 10/27/2018 10:14:00 DIS Outpatient AVNI VILLANUEVA DO [facility] PREOP EGD [id number] 08/04/2017 12:12:00 08/04/2017 23:59:59 [facility] Outpatient JERRICA MENDEZ CFNP [facility] RAD SUBLUXATION OF RT SHOULDER JOINT,[place] [id number] 07/12/2017 08:45:00 07/12/2017 23:59:59 [facility] Outpatient JERRICA WELCH MD [facility] [id number] 06/28/2017 08:35:00 06/28/2017 23:59:59 CLS Outpatient JERRICA WELCH MD [facility] [id number] 06/21/2017 08:45:00 06/21/2017 23:59:59 CLS Outpatient JERRICA WELCH MD [facility] [id number] 06/14/2017 10:47:00 06/14/2017 23:59:59 CLS Outpatient JERRICA WELCH MD [facility] LAB [id number],[id number],[id number] [id number] 06/14/2017 08:55:00 06/14/2017 23:59:59 CLS Outpatient JERRICA WELCH MD [facility] [id number] 02/24/2017 08:09:00 02/24/2017 23:59:59 CLS Outpatient JERRICA WELCH MD [facility] [id number] 02/17/2017 08:04:00 02/17/2017 23:59:59 CLS Outpatient JERRICA WELCH MD [facility] [id number] 02/10/2017 08:29:00 02/10/2017 23:59:59 CLS Outpatient JERRICA WELCH MD [facility] [id number] 02/03/2017 09:14:00 02/03/2017 23:59:59 CLS Outpatient JERRICA WELCH MD [facility] D68.59 [id number] 02/03/2017 08:01:00 02/03/2017 23:59:59 CLS Outpatient JERRICA WELCH MD [facility] [id number] 01/29/2017 08:56:00 01/29/2017 23:59:59 CLS Outpatient JERRICA WELCH MD [facility] 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 [id number] 01/27/2017 09:16:00 01/27/2017 23:59:59 CLS Outpatient JERRICA WELCH MD [facility] WOUNDCARE [id number] 02/15/2015 17:00:00 02/21/2015 11:10:00 DIS Inpatient AVNI CHILDRESS MD [facility] IRF BELOW THE KNEE AMPUTATION [id number] 05/11/2014 12:03:00 05/11/2014 23:59:59 CLS Outpatient WILMA ZAMBRANO MD (DDU) [facility] RAD [id number] 05/19/2013 12:58:00 05/19/2013 23:59:59 CLS Outpatient ELIA VALDEZ APRN [facility] RAD [id number] 10/31/2018 09:00:00 PEN Preadmit AVNI VILLANUEVA DO [facility] ENDO REFLUX [id number] 07/27/2014 09:21:00 07/27/2014 23:59:59 CLS Outpatient YANG DOJUSTIN [id number] 03/16/2014 10:10:00 03/16/2014 23:59:59 CLS Outpatient CELIA DOJUSTIN [id number] 03/15/2014 08:02:00 03/15/2014 23:59:59 CLS Outpatient YANG DOJUSTIN [id number] 02/08/2014 08:33:00 02/08/2014 23:59:59 CLS Outpatient YANG DOJUSTIN [id number] 02/01/2014 08:25:00 02/01/2014 23:59:59 CLS Outpatient YANG DOJUSTIN [id number] 11/01/2013 10:02:00 11/01/2013 23:59:59 CLS Outpatient YANG DOJUSTIN [id number] 07/06/2013 15:00:00 07/06/2013 23:59:59 CLS Outpatient PATY HOANG LCPC [id number] 06/26/2013 09:11:00 06/26/2013 23:59:59 CLS Outpatient CELIA DOJUSTIN [id number] 06/19/2013 10:32:00 06/19/2013 23:59:59 CLS Outpatient CELIA DOJUSTIN [id number] 06/12/2013 10:27:00 06/12/2013 23:59:59 CLS Outpatient CELIA MAYFIELDJUSTIN G[place] [id number] 06/05/2013 11:21:00 06/05/2013 23:59:59 CLS Outpatient ELIA VALDEZ APRN [id number] 05/19/2013 11:29:00 05/19/2013 23:59:59 CLS Outpatient ELIA VALDEZ APRN [id number] 05/08/2013 14:26:00 05/08/2013 23:59:59 CLS Outpatient ELIA VALDEZ APRN [id number] 12/08/2011 10:43:00 12/08/2011 23:59:59 CLS Outpatient [id number] 09/26/2012 12:46:00 Document Registration
--- NOTE | 2018-11-02 00:27 | OPERATIVE REPORT ---
DATE OF SERVICE: 10/31/2018 PREOPERATIVE DIAGNOSES: Gastritis, dysphagia. POSTOPERATIVE DIAGNOSES: Gastritis, esophagitis and small hiatal hernia. PROCEDURE: EGD with biopsy. SURGEON: Daniel Arriola DO LINEN WORKER: None. ANESTHESIA: IV sedation by LUMBER RACKER. SPECIMEN: Biopsy from the antrum and the body of the stomach as well as the GE junction. BLOOD LOSS: Scant. FLUIDS: Per anesthesia. POSTOPERATIVE CONDITION: Stable. INDICATION FOR PROCEDURE: The patient is a 43-year-old male, who has been having chronic gastritis, abdominal pain and some dysphagia, needed a workup. FINDINGS: The patient had some pretty severe gastritis. He had a small hiatal hernia. No other obvious pathology seen. Biopsies performed. PROCEDURE NOTE: After informed consent was obtained, the patient was brought to the endoscopy suite, placed in the bed, left lateral decubitus position. He was administered IV sedation by the LUMBER RACKER, who then monitored his vitals the entire time, heart rate, blood pressure and pulse ox and the scope was inserted down the mouth through the esophagus into the stomach and the stomach looked like he had some moderate gastritis, pushed into the duodenum, duodenum looked okay. Pulled back into the antrum, did a biopsy at the antrum and then pulled back a little bit, did a biopsy the body of stomach, retroflexed the scope, so what looked like a small hiatal hernia and then pulled the scope up into the esophagus, did a biopsy of the GE junction and then pulled the scope up the esophagus and out the mouth. The patient tolerated the procedure and he was recovered in endoscopy suite. Job ID: [id number] DocumentID: [id number] Dictated Date: 11/01/2018 17:42:57 Shanker Out Date: 11/02/2018 00:26:21 Dictated By: DANIEL ARRIOLA DO
== END 2018-10-31 10:24 | disposition home or self-care (01) ==
LOC: ENDO 07:48
PROVIDERS: ATTEND Surgery
DX: K29.50 Unspecified chronic gastritis without bleeding (principal); K20.9 Esophagitis, unspecified; K44.9 Diaphragmatic hernia without obstruction or gangrene; E11.9 Type 2 diabetes mellitus without complications; I10 Essential (primary) hypertension; R13.12 Dysphagia, oropharyngeal phase; Z88.1 Allergy status to other antibiotic agents; Z87.891 Personal history of nicotine dependence; Z79.4 Long term (current) use of insulin; Z79.899 Other long term (current) drug therapy; Z96.651 Presence of right artificial knee joint; E66.01 Morbid (severe) obesity due to excess calories; Z68.41 Body mass index [BMI] 40.0-44.9, adult
CPT/HCPCS: 88305

== ENCOUNTER → 2018-12-14 | Outpatient (CLI) | payer MEDICARE, MEDICAID ==
[~2018-12-14] MED LIST changes: -LACTATED RINGERS 1,000 ML IV ONE
== END ==
LOC: WOUNDCARE 13:42
PROVIDERS: ATTEND Surgery
DX: E11.622 Type 2 diabetes mellitus with other skin ulcer (principal); E11.52 Type 2 diabetes mellitus with diabetic peripheral angiopathy with gangrene; I87.331 Chronic venous hypertension (idiopathic) with ulcer and inflammation of right lower extremity; L97.222 Non-pressure chronic ulcer of left calf with fat layer exposed; E66.01 Morbid (severe) obesity due to excess calories; I89.0 Lymphedema, not elsewhere classified; I96 Gangrene, not elsewhere classified; Z89.511 Acquired absence of right leg below knee
CPT/HCPCS: 11042

== ENCOUNTER → 2018-12-14 | Outpatient (CLI) | payer MEDICARE, MEDICAID ==
[2018-12-14 15:32] LABS: BASOPHILS % (AUTO) 0 % (0-10); EOSINOPHILS # (AUTO) 0.3 10^3/uL (0.0-0.3); EOSINOPHILS % (AUTO) 4 % (0-10); HEMATOCRIT 44 % (40-54); HEMOGLOBIN 15.2 G/DL (13.3-17.7); LYMPHOCYTES # (AUTO) 0.7 X 10^3 (1.0-4.0); LYMPHOCYTES % (AUTO) 10 % (12-44); MEAN CORPUSCULAR HEMOGLOBIN 29 PG (25-34); MEAN CORPUSCULAR HGB CONC 35 G/DL (32-36); MEAN CORPUSCULAR VOLUME 83 FL (80-99); MEAN PLATELET VOLUME 10.3 FL (7.4-10.4); MONOCYTES # (AUTO) 0.8 X 10^3 (0.0-1.0); MONOCYTES % (AUTO) 12 % (0-12); NEUTROPHILS # (AUTO) 4.9 X 10^3 (1.8-7.8); NEUTROPHILS % (AUTO) 74 % (42-75); PLATELET COUNT 242 10^3/uL (130-400); RED CELL DISTRIBUTION WIDTH 13.2 % (10.0-14.5); WHITE BLOOD COUNT 6.7 10^3/uL (4.3-11.0)
[2018-12-14 15:55] LABS: ALANINE AMINOTRANSFERASE 26 U/L (0-55); ALKALINE PHOSPHATASE 54 U/L (40-136); BILIRUBIN,TOTAL 0.6 MG/DL (0.1-1.0); BUN/CREATININE RATIO 12; CARBON DIOXIDE 27 MMOL/L (21-32); CHLORIDE 101 MMOL/L (98-107); CREATININE SERUM 0.84 MG/DL (0.60-1.30); GFR ESTIMATED > 60; GLUCOSE 247 MG/DL (70-105); POTASSIUM 3.8 MMOL/L (3.6-5.0); SODIUM 135 MMOL/L (135-145); TOTAL PROTEIN 7.6 GM/DL (6.4-8.2)
== END ==
LOC: LAB 15:23
PROVIDERS: ATTEND Surgery
DX: E11.622 Type 2 diabetes mellitus with other skin ulcer (principal); I87.332 Chronic venous hypertension (idiopathic) with ulcer and inflammation of left lower extremity; L97.222 Non-pressure chronic ulcer of left calf with fat layer exposed; I89.0 Lymphedema, not elsewhere classified; E66.01 Morbid (severe) obesity due to excess calories; Z89.511 Acquired absence of right leg below knee
CPT/HCPCS: 36415; 80053; 85025

== ENCOUNTER → 2018-12-28 | Outpatient (CLI) | payer MEDICARE, MEDICAID | LOC: WOUNDCARE 13:51 | PROVIDERS: ATTEND Surgery | DX: L97.222 Non-pressure chronic ulcer of left calf with fat layer exposed (principal); I87.332 Chronic venous hypertension (idiopathic) with ulcer and inflammation of left lower extremity; I89.0 Lymphedema, not elsewhere classified; E11.622 Type 2 diabetes mellitus with other skin ulcer; E66.01 Morbid (severe) obesity due to excess calories; Z89.511 Acquired absence of right leg below knee | CPT/HCPCS: 99212 ==

== ENCOUNTER → 2019-08-10 | Outpatient (CLI) | payer MEDICARE, MEDICAID ==
[~2019-08-10] MED LIST changes: -HYDR-3816 PO; +METF500T19 PO; -METF500T8 PO; -MONT10TA24 PO; +MONT10TA26 PO; +OMEP40CA27 PO; -OMEP40CA36 PO
== END ==
LOC: WOUNDCARE 07:54
PROVIDERS: ATTEND Surgery
DX: E11.622 Type 2 diabetes mellitus with other skin ulcer (principal); E11.42 Type 2 diabetes mellitus with diabetic polyneuropathy; E11.65 Type 2 diabetes mellitus with hyperglycemia; E11.52 Type 2 diabetes mellitus with diabetic peripheral angiopathy with gangrene; I96 Gangrene, not elsewhere classified; I87.332 Chronic venous hypertension (idiopathic) with ulcer and inflammation of left lower extremity; L97.222 Non-pressure chronic ulcer of left calf with fat layer exposed
CPT/HCPCS: 99214

== ENCOUNTER → 2019-08-24 | Outpatient (CLI) | payer MEDICARE, MEDICAID | LOC: WOUNDCARE 08:07 | PROVIDERS: ATTEND Surgery | DX: E11.622 Type 2 diabetes mellitus with other skin ulcer (principal); E11.42 Type 2 diabetes mellitus with diabetic polyneuropathy; I87.332 Chronic venous hypertension (idiopathic) with ulcer and inflammation of left lower extremity; L97.222 Non-pressure chronic ulcer of left calf with fat layer exposed; Z89.511 Acquired absence of right leg below knee; Z87.891 Personal history of nicotine dependence; Z87.442 Personal history of urinary calculi; J45.909 Unspecified asthma, uncomplicated; G47.30 Sleep apnea, unspecified; M19.91 Primary osteoarthritis, unspecified site | CPT/HCPCS: 99213 ==

== ENCOUNTER → 2019-11-27 | Outpatient (CLI) | payer MEDICARE, MEDICAID ==
[~2019-11-27] MED LIST changes: +METF-865 PO; -METF500T19 PO
== END ==
LOC: WOUNDCARE 09:05
PROVIDERS: ATTEND Surgery
DX: E11.622 Type 2 diabetes mellitus with other skin ulcer (principal); E11.52 Type 2 diabetes mellitus with diabetic peripheral angiopathy with gangrene; I87.332 Chronic venous hypertension (idiopathic) with ulcer and inflammation of left lower extremity; I70.262 Atherosclerosis of native arteries of extremities with gangrene, left leg; L03.116 Cellulitis of left lower limb; L97.222 Non-pressure chronic ulcer of left calf with fat layer exposed
CPT/HCPCS: 11042

== ENCOUNTER → 2019-12-04 | Outpatient (CLI) | payer MEDICARE, MEDICAID | LOC: WOUNDCARE 10:29 | PROVIDERS: ATTEND Surgery | DX: I87.332 Chronic venous hypertension (idiopathic) with ulcer and inflammation of left lower extremity (principal); E11.622 Type 2 diabetes mellitus with other skin ulcer; L97.222 Non-pressure chronic ulcer of left calf with fat layer exposed; I70.242 Atherosclerosis of native arteries of left leg with ulceration of calf; E11.52 Type 2 diabetes mellitus with diabetic peripheral angiopathy with gangrene | CPT/HCPCS: 11042 ==

== ENCOUNTER → 2019-12-04 | Outpatient (CLI) | payer MEDICARE, MEDICAID ==
[2019-12-04 11:41] LABS: BASOPHILS % (AUTO) 0 % (0-10); EOSINOPHILS # (AUTO) 0.2 10^3/uL (0.0-0.3); EOSINOPHILS % (AUTO) 3 % (0-10); HEMATOCRIT 41 % (40-54); HEMOGLOBIN 14.2 G/DL (13.3-17.7); LYMPHOCYTES # (AUTO) 1.6 X 10^3 (1.0-4.0); LYMPHOCYTES % (AUTO) 23 % (12-44); MEAN CORPUSCULAR HEMOGLOBIN 29 PG (25-34); MEAN CORPUSCULAR HGB CONC 35 G/DL (32-36); MEAN CORPUSCULAR VOLUME 83 FL (80-99); MEAN PLATELET VOLUME 11.1 FL (7.4-10.4); MONOCYTES # (AUTO) 0.5 X 10^3 (0.0-1.0); MONOCYTES % (AUTO) 7 % (0-12); NEUTROPHILS # (AUTO) 4.9 X 10^3 (1.8-7.8); NEUTROPHILS % (AUTO) 67 % (42-75); PLATELET COUNT 359 10^3/uL (130-400); WHITE BLOOD COUNT 7.3 10^3/uL (4.3-11.0)
[2019-12-04 12:01] LABS: ALANINE AMINOTRANSFERASE 28 U/L (0-55); ALBUMIN 3.9 GM/DL (3.2-4.5); ALKALINE PHOSPHATASE 62 U/L (40-136); BILIRUBIN,TOTAL 0.4 MG/DL (0.1-1.0); BUN/CREATININE RATIO 10; CALCIUM 9.1 MG/DL (8.5-10.1); CARBON DIOXIDE 22 MMOL/L (21-32); CHLORIDE 102 MMOL/L (98-107); CREATININE SERUM 1.24 MG/DL (0.60-1.30); GFR ESTIMATED > 60; SODIUM 135 MMOL/L (135-145); TOTAL PROTEIN 7.7 GM/DL (6.4-8.2)
[2019-12-04 12:32] LABS: GLUCOSE 412 MG/DL (70-105)
== END ==
LOC: LAB 11:25
PROVIDERS: ATTEND Surgery
DX: E11.622 Type 2 diabetes mellitus with other skin ulcer (principal); I87.332 Chronic venous hypertension (idiopathic) with ulcer and inflammation of left lower extremity; L97.222 Non-pressure chronic ulcer of left calf with fat layer exposed; I70.242 Atherosclerosis of native arteries of left leg with ulceration of calf
CPT/HCPCS: 36415; 80053; 83036; 85025

== ENCOUNTER → 2020-02-19 | Outpatient (CLI) | payer MEDICARE, MEDICAID ==
[~2020-02-19] MED LIST changes: +AMLO-250 PO; -AMLO5TAB9 PO; -MONT10TA26 PO; +MONT10TA97 PO
== END ==
LOC: WOUNDCARE 12:27
PROVIDERS: ATTEND Surgery
DX: I87.332 Chronic venous hypertension (idiopathic) with ulcer and inflammation of left lower extremity (principal); E11.622 Type 2 diabetes mellitus with other skin ulcer; L97.222 Non-pressure chronic ulcer of left calf with fat layer exposed; I70.242 Atherosclerosis of native arteries of left leg with ulceration of calf
CPT/HCPCS: 99213

== ENCOUNTER → 2020-02-27 | Outpatient (CLI) | payer MEDICARE, MEDICAID ==
[~2020-02-27] MED LIST changes: +MONT10TA26 PO; -MONT10TA97 PO
== END ==
LOC: WOUNDCARE 08:01
PROVIDERS: ATTEND Surgery
DX: I87.332 Chronic venous hypertension (idiopathic) with ulcer and inflammation of left lower extremity (principal); E11.622 Type 2 diabetes mellitus with other skin ulcer; I70.242 Atherosclerosis of native arteries of left leg with ulceration of calf; L97.222 Non-pressure chronic ulcer of left calf with fat layer exposed
CPT/HCPCS: 99212

== ENCOUNTER → 2023-02-03 | Outpatient (CLI) | payer MEDICARE, MEDICAID ==
[~2023-02-03] MED LIST changes: +ALBU8.5H6 IH; -GABA300S2 PO; +GABA300S3 PO; -GEMF600T8 PO; +GEMF600T88 PO; +MONT-40 PO; -MONT10TA26 PO; -OMEP40CA27 PO; +OMEP40CA6 PO; -POLY17PO31 PO; +POLY17PO54 PO; +POTA-330 PO; -POTA-51 PO; -RT-ALBUINH IH; +RT-ALBUTEROL SULF 2.5 MG/3 ML PRE-MIX VIAL INH ONE; +SERT-413 PO; -SERT50TA9 PO
== END ==
LOC: RT 09:14
PROVIDERS: ATTEND Nurse Practitioner Family
DX: J44.9 Chronic obstructive pulmonary disease, unspecified (principal); I48.0 Paroxysmal atrial fibrillation; I50.9 Heart failure, unspecified; Z87.09 Personal history of other diseases of the respiratory system
CPT/HCPCS: 94060; 94726; 94729